=== PATIENT | male | born 1950 | race Caucasian/White ===

== ENCOUNTER → 2017-10-17 | Outpatient (CLI) | payer MEDICARE, MEDICAID, SELFPAY | PROVIDERS: Visit Provider Nurse Practitioner Family | DX: R42 Dizziness and giddiness (principal); R26.89 Other abnormalities of gait and mobility | CPT/HCPCS: 70551 ==

== ENCOUNTER → 2017-11-25 10:43 | Outpatient (POV) | payer MEDICARE, MEDICAID, SELFPAY ==
[2017-11-25 11:26] VITALS: BP 127/97; PULSE 97; TEMP 36.2; O2SAT 96; BMI 26.4
--- NOTE | 2017-11-25 11:42 | HMH.PAINSOAP ---
[facility] Pain Management SOAP Note Subjective:: This patient is a pleasant 67-year-old white male who we have been treating for low back pain with degenerative disc disease of lumbar spine multiple levels. His current Gray 10 mg 1 tablet 4 times a day. He does well with his pain medication. It reduces his pain by at least 50-60% and makes it tolerable. His Siva and urine drug screen are all appropriate. Kaspar #[id number]. He is also received injections in the past. He has done well with these injections. Most of his pain is over his left hip today. He he has increasing pain over the left trochanteric bursa and left SI joint. He does have a positive Sony's test on the left side. I do believe that he would benefit from a left SI joint injection in the left trochanteric bursa injection under fluoroscopy. Objective:: Alert and oriented ?3 in no acute distress. He does have an antalgic gait. Tenderness over the left trochanteric bursa and left SI joint. Positive Sony's test on the left side. Motor strength of the lower extremities is 5/5. There is no gross sensory deficit. Assessment:: Degenerative disc disease of lumbar spine lumbar radiculopathy symptoms. Trochanteric bursitis. Sacroiliitis. Plan:: We will seek approval and plan on a left trochanteric bursa injection and a left SI joint injection. We will also refill his Gray 10 mg 1 tablet 4 times a day. We will given 2 months worth of prescriptions.
--- NOTE | 2017-11-25 11:45 | P.CONS_ITS ---
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 His current [place] 10 mg 1 tablet 4 times a day. He does well with his pain medication. It reduces his pain by at least 50-60% and makes it tolerable. His Siva and urine drug screen are all appropriate. Kaspar #[id number]. He is also received injections in the past. He has done well with these injections. Most of his pain is over his left hip today. He he has increasing pain over the left trochanteric bursa and left SI joint. He does have a positive Sony's test on the left side. I do believe that he would benefit from a left SI joint injection in the left trochanteric bursa injection under fluoroscopy. Objective:: Alert and oriented ?3 in no acute distress. He does have an antalgic gait. Tenderness over the left trochanteric bursa and left SI joint. Positive Sony' s test on the left side. Motor strength of the lower extremities is 5/5. There is no gross sensory deficit. Assessment:: Degenerative disc disease of lumbar spine lumbar radiculopathy symptoms. Trochanteric bursitis. Sacroiliitis. Plan:: We will seek approval and plan on a left trochanteric bursa injection and a left SI joint injection. We will also refill his [place] 10 mg 1 tablet 4 times a day. We will given 2 months worth of prescriptions.
[2017-11-25 11:58] LABS: Amphetamine/Metha Screen,Urine Negative ng/mL (<1000); Barbiturates Screen,Urine Negative ng/mL (<200); Benzodiazepines Screen,Urine Negative ng/mL (200); Cannabinoid Screen,Urine Negative ng/mL (<50); Cocaine Screen,Urine Negative ng/g (<300); Methadone Screen,Urine Negative ng/mL (<300); Opiate Screen,Urine Positive ng/mL (<300); Phencyclidine Screen,Urine Negative ng/mL (<25)
[2017-12-02 15:18] LABS: Codeine Negative (Cutoff=100); Hydrocodone Positive (.); Hydromorphone Positive (.); Morphine Negative (Cutoff=100)
[2017-12-03 06:21] LABS: Opiates Positive (.)
--- NOTE | 2018-01-01 12:39 | PC.PHONENOTE ---
called in Rx for Gabapentin 800mg TID with 2 refills to [facility] pharmacy
== END ==
PROVIDERS: Family Provider Family Medicine; PCP Family Medicine; Visit Provider Anesthesiology
DX: M70.62 Trochanteric bursitis, left hip (principal); M51.16 Intervertebral disc disorders with radiculopathy, lumbar region; M46.1 Sacroiliitis, not elsewhere classified
CPT/HCPCS: 80305; 80361; 99212; G0480

== ENCOUNTER 2018-01-03 13:41 | Day surgery (SDC) | payer MEDICARE, MEDICAID, SELFPAY ==
[2018-01-03 14:14] VITALS: BP 152/62; PULSE 65; TEMP 36.6; O2SAT 97; BMI 27.3
--- NOTE | 2018-01-03 14:43 | HMH.PMPROC ---
- Procedure Date: 01/03/18 Time: 14:43 Anesthesiologist:: Alejandro Gongora MD Complications:: None Pre-procedure Diagnosis:: Sacroiliitis and trochanteric bursitis Post-procedure Diagnosis:: Same Indications for Procedure:: This patient is a pleasant 67-year-old white male who we have been treating for low back pain with lumbar radiculopathy symptoms. He is tender over his left hip. He is tender over left trochanteric bursa and left SI joint. He does have a positive Sony's test on left side. I believe he would benefit from a left SI joint injection the left trochanteric bursa injection under fluoroscopy. We will do this today. Procedure Details:: Left SI joint injection and left trochanteric bursa injection under fluoroscopy Informed consent was obtained and the risks and benefits of the procedure was going to the patient. Patient was taken to the procedure room. Patient was placed prone on the procedure table. The left hip was prepped using ChloraPrep. The skin and subcutaneous tissues were anesthetized using lidocaine. I placed a 22-gauge spinal needle into the inferior aspect of the left SI joint. Needle placement was confirmed with dye. After this we injected 5 mL bupivacaine 0.25% and Depo-Medrol 40 mg into the left SI joint. The patient tolerated the procedure well with no complication. The left hip was prepped using ChloraPrep. The skin and subcutis tissues were anesthetized using lidocaine. I placed a 22-gauge spinal needle under fluoroscopic guidance and advanced until it contacted the left greater trochanter. Needle placement was confirmed with dye. After this we injected 5 mL bupivacaine 0.25% and Depo-Medrol 40 mg. Patient tolerated the procedure well with no complications. Plan and Disposition:: We will follow-up with this patient 2 weeks. We will reevaluate his symptoms at that time.
[2018-01-03 14:50] VITALS: BP 112/62; PULSE 63; RESP 20
[2018-01-03 14:51] VITALS: BP 120/65; PULSE 65; RESP 20
[2018-01-03 15:00] VITALS: BP 98/62; PULSE 68; O2SAT 99
== END 2018-01-03 15:05 | disposition home or self-care (01) ==
LOC: SC.PAINP 13:43
PROVIDERS: Family Provider Family Medicine; PCP Family Medicine; Visit Provider Anesthesiology
DX: M46.1 Sacroiliitis, not elsewhere classified (principal); M70.62 Trochanteric bursitis, left hip
CPT/HCPCS: 20610; 27096; G0260; J1030; Q9966

== ENCOUNTER → 2018-01-20 15:22 | Outpatient (POV) | payer MEDICARE, MEDICAID, SELFPAY ==
[2018-01-20 15:32] VITALS: BP 123/90; PULSE 81; RESP 18; TEMP 36.9; O2SAT 96; BMI 25.8
--- NOTE | 2018-01-20 16:13 | HMH.PAINSOAP ---
[facility] Pain Management SOAP Note Subjective:: Patient is a pleasant 67-year-old white male who presents today for follow-up after left SI joint injection and left trochanteric bursa injection. Patient has not had much relief from his injection. Patient states he was walking his dog and felt a pop in his left hip. Patient would like an x-ray of hip today. Patient is also being medically managed for low back pain and neck pain. Patient currently on [place] 10 mg 1 p.o. 4 times daily and gabapentin 800 mg 1 p.o. 3 times daily. Patient's MARIA DE JESUS #[id number] reviewed and appropriate. Patient UDS has been appropriate in the past. Patient states that his gabapentin is not as effective as it used to be. Patient states he used to take Lyrica with much better relief. Patient denies any side effects to the medication. Patient rates his pain a 6 out of 10 today. Patient states most of it being in his left hip and radiating down to his leg at times. ROS General: no recent weight change, no fever, no sleep disturbances Respiratory: no cough, no shortness of air, no recurring pulmonary infections Cardiovascular/Peripheral Vascular: No chest pain, No palpitations, no edema, no shortness of breath. Gastrointestinal: no incontinence, normal bowel movements reported Genitourinary: no incontinence Musculoskeletal: Neck pain, back pain, left hip and leg pain Psychiatric: normal mood/ affect, [denies depression], [denies anxiety] Neurological: [denies weakness in extremities], [denies balance issues] Objective:: Physical Exam General: Alert and oriented x3, no acute distress, pleasant and cooperative, [on room air] Lungs: Resps E/U, Symmetrical chest expansion, Eyes: PERRL Musculoskeletal: Flexion and extension of lumbar and cervical spine somewhat guarded secondary to pain, deep tendon reflexes normal, strength in upper and lower extremities [5/5], [abnormal gait noted] Neurological: speech clear, brass reclaimer equal, no gross sensory deficits Assessment:: Degenerative disc disease of the cervical spine, cervical radiculopathy, occipital neuralgia, degenerative disc disease of the lumbar spine with lumbar radiculopathy, left sacroiliitis Plan:: We will refill his medications today [place] 10 mg 1 p.o. 4 times daily. We will give him 2 prescriptions. We will also change him to Lyrica 75 mg 1 tab p.o. twice daily for a month and see if this will helps with his symptoms. Patient's Maria De Jesus and urine drug screen both reviewed and appropriate. Dr. Gongora has reviewed his chart and agrees with this plan of care. I will follow-up with him in 1 month and reassess how he is doing with his Lyrica change. Patient is to call the office if he has any side effects. Patient has been prescribed a controlled substance after being counseled on the medication, medication safety, and possible side effects. MARIA DE JESUS report has been obtained and reviewed prior to prescription and found to be appropriate. Opioid contract was reviewed and signed by the patient, and that they have agreed to all of the terms set forth by our compliance program. This note was dictated using voice recognition software may contain errors or omissions
--- NOTE | 2018-01-20 16:17 | P.CONS_ITS ---
[facility] Pain Management SOAP Note Subjective:: Patient is a pleasant 67-year-old white male who presents today for follow-up after left SI joint injection and left trochanteric bursa injection. Patient has not had much relief from his injection. Patient states he was walking his dog and felt a pop in his left hip. Patient would like an x-ray of hip today. Patient is also being medically managed for low back pain and neck pain. Patient currently on [place] 10 mg 1 p.o. 4 times daily and gabapentin 800 mg 1 p.o. 3 times daily. Patient's MARIA DE JESUS #[id number] reviewed and appropriate. Patient UDS has been appropriate in the past. Patient states that his gabapentin is not as effective as it used to be. Patient states he used to take Lyrica with much better relief. Patient denies any side effects to the medication. Patient rates his pain a 6 out of 10 today. Patient states most of it being in his left hip and radiating down to his leg at times. ROS General: no recent weight change, no fever, no sleep disturbances Respiratory: no cough, no shortness of air, no recurring pulmonary infections Cardiovascular/Peripheral Vascular: No chest pain, No palpitations, no edema, no shortness of breath. Gastrointestinal: no incontinence, normal bowel movements reported Genitourinary: no incontinence Musculoskeletal: Neck pain, back pain, left hip and leg pain Psychiatric: normal mood/ affect, [denies depression], [denies anxiety] Neurological: [denies weakness in extremities], [denies balance issues] Objective:: Physical Exam General: Alert and oriented x3, no acute distress, pleasant and cooperative, [ on room air] Lungs: Resps E/U, Symmetrical chest expansion, Eyes: PERRL Musculoskeletal: Flexion and extension of lumbar and cervical spine somewhat guarded secondary to pain, deep tendon reflexes normal, strength in upper and lower extremities [5/5], [abnormal gait noted] Neurological: speech clear, director diabetes equal, no gross sensory deficits Assessment:: Degenerative disc disease of the cervical spine, cervical radiculopathy, occipital neuralgia, degenerative disc disease of the lumbar spine with lumbar radiculopathy, left sacroiliitis Plan:: We will refill his medications today [place] 10 mg 1 p.o. 4 times daily. We will give him 2 prescriptions. We will also change him to Lyrica 75 mg 1 tab p.o. twice daily for a month and see if this will helps with his symptoms. Patient' s Maria De Jesus and urine drug screen both reviewed and appropriate. Dr. Gongora has reviewed his chart and agrees with this plan of care. I will follow-up with him in 1 month and reassess how he is doing with his Lyrica change. Patient is to call the office if he has any side effects. Patient has been prescribed a controlled substance after being counseled on the medication, medication safety, and possible side effects. MARIA DE JESUS report has been obtained and reviewed prior to prescription and found to be appropriate. Opioid contract was reviewed and signed by the patient, and that they have agreed to all of the terms set forth by our compliance program. This note was dictated using voice recognition software may contain errors or omissions
--- NOTE | 2018-01-21 15:05 | PC.PHONENOTE ---
called in Rx for Lyrica 75mg BID and cancelled Rx for Gabapentin per provider order
== END ==
PROVIDERS: Family Provider Family Medicine; PCP Family Medicine; Visit Provider Clinical Nurse Specialist Family Health
DX: M54.12 Radiculopathy, cervical region (principal); M54.16 Radiculopathy, lumbar region; M54.81 Occipital neuralgia
CPT/HCPCS: 99212

== ENCOUNTER → 2018-01-21 14:01 | Outpatient (CLI) | payer MEDICARE, MEDICAID, SELFPAY ==
--- NOTE | 2018-01-21 14:07 | XR_ITS ---
XR hip LT 2-3V w/pelvis HISTORY: ITS.REASON: LEFT HIP PAIN ORDERING PHYSICIAN: Sherry Saenz PATIENT AGE: 67 years COMPARISON: 05/07/2011 FINDINGS: Left femoral decompression screw along with an additional smaller screw present as before the proximal bony sideplate connecting to the gamma nail. Not significant change. A transverse long screw is present through the mid pelvis through the sacrum. There are mild osteoarthritic changes of the hips. No fracture or dislocation. No lytic or blastic change. IMPRESSION: Osteoarthritis of the hips with postsurgical change
== END ==
PROVIDERS: PCP Family Medicine; Visit Provider Clinical Nurse Specialist Family Health
DX: M25.552 Pain in left hip (principal)
CPT/HCPCS: 73502

== ENCOUNTER → 2018-02-17 13:05 | Outpatient (POV) | payer MEDICARE, MEDICAID, SELFPAY ==
[2018-02-17 13:51] VITALS: BP 185/93; PULSE 55; RESP 18; TEMP 36.6; BMI 25.8
--- NOTE | 2018-02-17 13:59 | HMH.PAINSOAP ---
[facility] Pain Management SOAP Note Subjective:: Patient is a pleasant 67-year-old white male who presents today follow-up after medication changes. Patient states that he is unable to take the Lyrica due to side effects including stomach upset and kidney problems, and swelling. Patient like to go back on his gabapentin 800 grams 1 p.o. 3 times daily. Patient x-ray of hip showed osteoarthritis. Patient is uninterested in an injection at this time. Patient is doing urine drug screen today. Patient will do that before receiving medication. Patient is also being managed on [place] 10 mg 1 p.o. 4 times a day. Patient states he does very well with this. Patient states he has no side effects. His pain a 5 out of 10 today. ROS General: no recent weight change, no fever, no sleep disturbances Respiratory: no cough, no shortness of air, no recurring pulmonary infections Cardiovascular/Peripheral Vascular: No chest pain, No palpitations, no edema, no shortness of breath. Gastrointestinal: no incontinence, normal bowel movements reported Genitourinary: no incontinence Musculoskeletal: Back pain, left hip pain Psychiatric: normal mood/ affect, [denies depression], [denies anxiety] Neurological: [denies weakness in extremities], [denies balance issues] Objective:: Physical Exam General: Alert and oriented x3, no acute distress, pleasant and cooperative, [on room air] Lungs: Resps E/U, Symmetrical chest expansion, Eyes: PERRL Musculoskeletal: Flexion and extension of lumbar spine somewhat guarded secondary to pain, deep tendon reflexes normal, strength in upper and lower extremities [5/5], [abnormal gait noted] Neurological: speech clear, diesel engineer equal, no gross sensory deficits Assessment:: Degenerative disc disease of the lumbar spine, lumbar radiculopathy, left sacroiliitis, occipital neuralgia, cervical degenerative disc disease with cervical radiculopathy Plan:: We will follow-up with this patient in 3 months we will give him 1 prescription [place] 10 mg 1 p.o. 4 times daily. Patient can call in for his next refill. Patient's Maria De Jesus reviewed and appropriate. Patient will provide urine drug screen sample today. Dr. Gongora has reviewed this chart and agrees with this plan of care. Patient has been instructed to call the office if he needs any further assistance prior to his appointment. - Patient has been prescribed a controlled substance after being counseled on the medication, medication safety, and possible side effects. MARIA DE JESUS report has been obtained and reviewed prior to prescription and found to be appropriate. Opioid contract was reviewed and signed by the patient, and that they have agreed to all of the terms set forth by our compliance program. This note was dictated using voice recognition software and may contain errors or omissions
--- NOTE | 2018-02-17 14:03 | P.CONS_ITS ---
[facility] Pain Management SOAP Note Subjective:: Patient is a pleasant 67-year-old white male who presents today follow-up after medication changes. Patient states that he is unable to take the Lyrica due to side effects including stomach upset and kidney problems, and swelling. Patient like to go back on his gabapentin 800 grams 1 p.o. 3 times daily. Patient x-ray of hip showed osteoarthritis. Patient is uninterested in an injection at this time. Patient is doing urine drug screen today. Patient will do that before receiving medication. Patient is also being managed on [place] 10 mg 1 p.o. 4 times a day. Patient states he does very well with this. Patient states he has no side effects. His pain a 5 out of 10 today. ROS General: no recent weight change, no fever, no sleep disturbances Respiratory: no cough, no shortness of air, no recurring pulmonary infections Cardiovascular/Peripheral Vascular: No chest pain, No palpitations, no edema, no shortness of breath. Gastrointestinal: no incontinence, normal bowel movements reported Genitourinary: no incontinence Musculoskeletal: Back pain, left hip pain Psychiatric: normal mood/ affect, [denies depression], [denies anxiety] Neurological: [denies weakness in extremities], [denies balance issues] Objective:: Physical Exam General: Alert and oriented x3, no acute distress, pleasant and cooperative, [ on room air] Lungs: Resps E/U, Symmetrical chest expansion, Eyes: PERRL Musculoskeletal: Flexion and extension of lumbar spine somewhat guarded secondary to pain, deep tendon reflexes normal, strength in upper and lower extremities [5/5], [abnormal gait noted] Neurological: speech clear, medical cost consultant equal, no gross sensory deficits Assessment:: Degenerative disc disease of the lumbar spine, lumbar radiculopathy, left sacroiliitis, occipital neuralgia, cervical degenerative disc disease with cervical radiculopathy Plan:: We will follow-up with this patient in 3 months we will give him 1 prescription [place] 10 mg 1 p.o. 4 times daily. Patient can call in for his next refill. Patient's Maria De Jesus reviewed and appropriate. Patient will provide urine drug screen sample today. Dr. Gongora has reviewed this chart and agrees with this plan of care. Patient has been instructed to call the office if he needs any further assistance prior to his appointment. - Patient has been prescribed a controlled substance after being counseled on the medication, medication safety, and possible side effects. MARIA DE JESUS report has been obtained and reviewed prior to prescription and found to be appropriate. Opioid contract was reviewed and signed by the patient, and that they have agreed to all of the terms set forth by our compliance program. This note was dictated using voice recognition software and may contain errors or omissions
[2018-02-17 15:20] LABS: Amphetamine/Metha Screen,Urine Negative ng/mL (<1000); Barbiturates Screen,Urine Negative ng/mL (<200); Benzodiazepines Screen,Urine Negative ng/mL (200); Cannabinoid Screen,Urine Negative ng/mL (<50); Cocaine Screen,Urine Negative ng/g (<300); Methadone Screen,Urine Negative ng/mL (<300); Opiate Screen,Urine Positive ng/mL (<300); Phencyclidine Screen,Urine Negative ng/mL (<25)
--- NOTE | 2018-02-18 14:29 | PC.PHONENOTE ---
02/17/18-called in rx for Gabapentin 800mg TID with 2 refills to pt pharmacy per provider order
[2018-02-26 17:13] LABS: Codeine Negative (Cutoff=100); Hydrocodone Positive (.); Hydromorphone Positive (.); Morphine Negative (Cutoff=100)
[2018-02-27 14:45] LABS: Opiates Positive (.)
== END ==
PROVIDERS: Family Provider Family Medicine; PCP Family Medicine; Visit Provider Clinical Nurse Specialist Family Health
DX: M54.16 Radiculopathy, lumbar region (principal); M54.12 Radiculopathy, cervical region; M54.81 Occipital neuralgia; Z79.899 Other long term (current) drug therapy
CPT/HCPCS: 80305; 80361; 80365; 99212; G0480

== ENCOUNTER → 2018-04-21 12:52 | Outpatient (POV) | payer MEDICARE, MEDICAID, SELFPAY ==
[2018-04-21 13:03] VITALS: BP 134/65; PULSE 74; RESP 18; TEMP 37; O2SAT 95; BMI 25.5
--- NOTE | 2018-04-21 13:30 | HMH.PAINSOAP ---
[facility] Pain Management SOAP Note Subjective:: Patient is a pleasant 68-year-old white male who presents today for medication changes. Patient is currently being medically managed for pain secondary to degenerative disc disease of the lumbar spine with lumbar radiculopathy and cervical degenerative disc disease with cervical radiculopathy. Patient also has sacroiliitis and occipital neuralgia. Patient's currently being medically managed on gabapentin 800 mg 1 tab p.o. 3 times daily and [place] 10 mg 1 tab p.o. 4 times daily. Patient denies any side effects to his medication. He states the medication helps him 60%. Patient Kaspar #[id number] reviewed and appropriate. Patient's UDS has been appropriate in the past. Patient has had injections in the past however he states he is doing well right now on his medication. Patient has had carpal tunnel surgery on his left hand and is having the same symptomology return. Patient would like to see an orthopedic surgeon in regards to this. He rates his pain a 5 out of 10 today. ROS General: no recent weight change, no fever, no sleep disturbances Respiratory: no cough, no shortness of air, no recurring pulmonary infections Cardiovascular/Peripheral Vascular: No chest pain, No palpitations, no edema, no shortness of breath. Gastrointestinal: no incontinence, normal bowel movements reported Genitourinary: no incontinence Musculoskeletal: Left hand pain, back pain, left hip pain Psychiatric: normal mood/ affect Neurological: [denies weakness in extremities], [denies balance issues] Objective:: Physical Exam General: Alert and oriented x3, no acute distress, pleasant and cooperative, [on room air] Lungs: Resps E/U, Symmetrical chest expansion, Eyes: PERRL Musculoskeletal: Flexion and extension of cervical and lumbar spine somewhat guarded secondary to pain, deep tendon reflexes normal, strength in upper and lower extremities [5/5], normal gait noted Neurological: speech clear, damaged freight inspector equal, no gross sensory deficits Assessment:: Degenerative disc disease of lumbar spine, lumbar radiculopathy, left sacroiliitis, neuralgia, cervical degenerative disc disease and cervical radiculopathy Plan:: We will follow-up with this patient in 3 months. We will give him 2 prescriptions for [place] 10 mg 1 p.o. 4 times daily we will also increase his gabapentin to 800 mg 1 p.o. 4 times daily. We will see the patient back in 3 months and he can last picker 1 month in the interim. Patient's MARIA DE JESUS reviewed and urine drug screen in the past is been appropriate. Dr. Gongora has reviewed this chart and agrees with this care. Patient will also be set up with Dr. Otero in regards to his left wrist pain. Patient has been instructed to call the office if he needs any further assistance prior to his next appointment. Patient has been prescribed a controlled substance after being counseled on the medication, medication safety, and possible side effects. MARIA DE JESUS report has been obtained and reviewed prior to prescription and found to be appropriate. Opioid contract was reviewed and signed by the patient, and that they have agreed to all of the terms set forth by our compliance program. This note was dictated using voice recognition software and may contain errors or omissions
--- NOTE | 2018-04-21 13:35 | P.CONS_ITS ---
[facility] Pain Management SOAP Note Subjective:: Patient is a pleasant 68-year-old white male who presents today for medication changes. Patient is currently being medically managed for pain secondary to degenerative disc disease of the lumbar spine with lumbar radiculopathy and cervical degenerative disc disease with cervical radiculopathy. Patient also has sacroiliitis and occipital neuralgia. Patient's currently being medically managed on gabapentin 800 mg 1 tab p.o. 3 times daily and [place] 10 mg 1 tab p.o. 4 times daily. Patient denies any side effects to his medication. He states the medication helps him 60%. Patient Kaspar #[id number] reviewed and appropriate. Patient's UDS has been appropriate in the past. Patient has had injections in the past however he states he is doing well right now on his medication. Patient has had carpal tunnel surgery on his left hand and is having the same symptomology return. Patient would like to see an orthopedic surgeon in regards to this. He rates his pain a 5 out of 10 today. ROS General: no recent weight change, no fever, no sleep disturbances Respiratory: no cough, no shortness of air, no recurring pulmonary infections Cardiovascular/Peripheral Vascular: No chest pain, No palpitations, no edema, no shortness of breath. Gastrointestinal: no incontinence, normal bowel movements reported Genitourinary: no incontinence Musculoskeletal: Left hand pain, back pain, left hip pain Psychiatric: normal mood/ affect Neurological: [denies weakness in extremities], [denies balance issues] Objective:: Physical Exam General: Alert and oriented x3, no acute distress, pleasant and cooperative, [ on room air] Lungs: Resps E/U, Symmetrical chest expansion, Eyes: PERRL Musculoskeletal: Flexion and extension of cervical and lumbar spine somewhat guarded secondary to pain, deep tendon reflexes normal, strength in upper and lower extremities [5/5], normal gait noted Neurological: speech clear, accounts receivable accountant equal, no gross sensory deficits Assessment:: Degenerative disc disease of lumbar spine, lumbar radiculopathy, left sacroiliitis, neuralgia, cervical degenerative disc disease and cervical radiculopathy Plan:: We will follow-up with this patient in 3 months. We will give him 2 prescriptions for [place] 10 mg 1 p.o. 4 times daily we will also increase his gabapentin to 800 mg 1 p.o. 4 times daily. We will see the patient back in 3 months and he can pharmacy picking tech 1 month in the interim. Patient's MARIA DE JESUS reviewed and urine drug screen in the past is been appropriate. Dr. Gongora has reviewed this chart and agrees with this care. Patient will also be set up with Dr. Otero in regards to his left wrist pain. Patient has been instructed to call the office if he needs any further assistance prior to his next appointment. Patient has been prescribed a controlled substance after being counseled on the medication, medication safety, and possible side effects. MARIA DE JESUS report has been obtained and reviewed prior to prescription and found to be appropriate. Opioid contract was reviewed and signed by the patient, and that they have agreed to all of the terms set forth by our compliance program. This note was dictated using voice recognition software and may contain errors or omissions
== END ==
PROVIDERS: Family Provider Family Medicine; PCP Family Medicine; Visit Provider Clinical Nurse Specialist Family Health
DX: M54.12 Radiculopathy, cervical region (principal); M46.1 Sacroiliitis, not elsewhere classified; M54.16 Radiculopathy, lumbar region
CPT/HCPCS: 99212

== ENCOUNTER → 2018-05-08 10:54 | Outpatient (CLI) | payer MEDICARE, MEDICAID, SELFPAY ==
--- NOTE | 2018-05-08 10:59 | XR_ITS ---
XR elbow LT min 3V HISTORY: ITS.REASON: Left elbow pain ORDERING PHYSICIAN: George Starkey MD PATIENT AGE: 68 years COMPARISON: None FINDINGS: No fracture or dislocation. No lytic or blastic change. Mild spurring is present along the medial aspect of the coronoid process. No displaced fat pad. The joint spaces are well-preserved IMPRESSION: Minimal spurring along the coronoid process medially otherwise negative
== END ==
PROVIDERS: PCP Family Medicine; Visit Provider Orthopaedic Surgery
DX: M25.522 Pain in left elbow (principal)
CPT/HCPCS: 73080

== ENCOUNTER → 2018-07-21 10:39 | Outpatient (POV) | payer MEDICARE, MEDICAID, SELFPAY ==
[2018-07-21 11:07] VITALS: BP 111/75; PULSE 67; RESP 18; O2SAT 98; BMI 25.5
--- NOTE | 2018-07-21 11:33 | HMH.PAINSOAP ---
[facility] Pain Management SOAP Note Subjective:: This pleasant 68-year-old white male who presents today for medication refills. Patient is currently being medically managed for pain secondary to degenerative disc disease lumbar spine with lumbar radiculopathy and cervical degenerative disc disease with cervical radiculopathy. Patient is currently on an 800 mg 1 tab p.o. 4 times daily and [place] 10 minutes 1 tab p.o. 4 times daily. Patient denies any side effects to this medication. Patient rates his pain 5 out of 10 today patient states most of his trouble is when he is sleeping. Patient's MARIA DE JESUS #[id number] reviewed and appropriate. Patient's UDS has been appropriate in the past. ROS General: no recent weight change, no fever, difficulty sleeping Respiratory: no cough, no shortness of air, no recurring pulmonary infections Cardiovascular/Peripheral Vascular: No chest pain, No palpitations, no edema, no shortness of breath. Gastrointestinal: no incontinence, normal bowel movements reported Genitourinary: no incontinence Musculoskeletal: Neck and back pain Psychiatric: normal mood/ affect, Neurological: [denies weakness in extremities], [denies balance issues] Objective:: Physical Exam General: Alert and oriented x3, no acute distress, pleasant and cooperative, [on room air] Lungs: Resps E/U, Symmetrical chest expansion, Eyes: PERRL Musculoskeletal: Flexion and extension of cervical and lumbar spine somewhat guarded secondary to pain, deep tendon reflexes normal, strength in upper and lower extremities [5/5], antalgic gait noted Neurological: speech clear, paperhanger supervisor equal, no gross sensory deficits Assessment:: Degenerative disc disease lumbar spine with lumbar radiculopathy and left sacroiliitis, and cervical degenerative disc disease with cervical radiculopathy Plan:: We will refill the patient's [place] 10 mg 1 p.o. 4 times daily and gabapentin 800 mg 1 p.o. 4 times daily we will start him on amitriptyline 25 mg at nighttime to see if this helps him with his sleeping. I will follow-up with him in 1 week. Patient's MARIA DE JESUS reviewed. Dr. Gongora is reviewed this chart and agrees with this plan of care. Patient has been prescribed a controlled substance after being counseled on the medication, medication safety, and possible side effects. MARIA DE JESUS report has been obtained and reviewed prior to prescription and found to be appropriate. Opioid contract was reviewed and signed by the patient, and that they have agreed to all of the terms set forth by our compliance program. This note was dictated using voice recognition software and may contain errors or omissions
--- NOTE | 2018-07-21 11:36 | P.CONS_ITS ---
[facility] Pain Management SOAP Note Subjective:: This pleasant 68-year-old white male who presents today for medication refills. Patient is currently being medically managed for pain secondary to degenerative disc disease lumbar spine with lumbar radiculopathy and cervical degenerative disc disease with cervical radiculopathy. Patient is currently on an 800 mg 1 tab p.o. 4 times daily and [place] 10 minutes 1 tab p.o. 4 times daily. Patient denies any side effects to this medication. Patient rates his pain 5 out of 10 today patient states most of his trouble is when he is sleeping. Patient's MARIA DE JESUS #[id number] reviewed and appropriate. Patient's UDS has been appropriate in the past. ROS General: no recent weight change, no fever, difficulty sleeping Respiratory: no cough, no shortness of air, no recurring pulmonary infections Cardiovascular/Peripheral Vascular: No chest pain, No palpitations, no edema, no shortness of breath. Gastrointestinal: no incontinence, normal bowel movements reported Genitourinary: no incontinence Musculoskeletal: Neck and back pain Psychiatric: normal mood/ affect, Neurological: [denies weakness in extremities], [denies balance issues] Objective:: Physical Exam General: Alert and oriented x3, no acute distress, pleasant and cooperative, [on room air] Lungs: Resps E/U, Symmetrical chest expansion, Eyes: PERRL Musculoskeletal: Flexion and extension of cervical and lumbar spine somewhat guarded secondary to pain, deep tendon reflexes normal, strength in upper and lower extremities [5/5], antalgic gait noted Neurological: speech clear, i&c tech equal, no gross sensory deficits Assessment:: Degenerative disc disease lumbar spine with lumbar radiculopathy and left sacroiliitis, and cervical degenerative disc disease with cervical radiculopathy Plan:: We will refill the patient's [place] 10 mg 1 p.o. 4 times daily and gabapentin 800 mg 1 p.o. 4 times daily we will start him on amitriptyline 25 mg at nighttime to see if this helps him with his sleeping. I will follow-up with him in 1 week. Patient's MARIA DE JESUS reviewed. Dr. Gongora is reviewed this chart and agrees with this plan of care. Patient has been prescribed a controlled substance after being counseled on the medication, medication safety, and possible side effects. MARIA DE JESUS report has been obtained and reviewed prior to prescription and found to be appropriate. Opioid contract was reviewed and signed by the patient, and that they have agreed to all of the terms set forth by our compliance program. This note was dictated using voice recognition software and may contain errors or omissions
[2018-07-21 13:46] LABS: Amphetamine/Metha Screen,Urine Negative ng/mL (<1000); Barbiturates Screen,Urine Negative ng/mL (<200); Benzodiazepines Screen,Urine Negative ng/mL (<200); Cannabinoid Screen,Urine Negative ng/mL (<50); Cocaine Screen,Urine Negative ng/mL (<300); Methadone Screen,Urine Negative ng/mL (<300); Opiate Screen,Urine Positive ng/mL (<300); Phencyclidine Screen,Urine Negative ng/mL (<25)
[2018-07-27 12:10] LABS: Codeine Negative (Cutoff=100); Hydrocodone Positive (.); Hydromorphone Positive (.); Morphine Negative (Cutoff=100)
[2018-07-28 03:31] LABS: Opiates Positive (.)
== END ==
PROVIDERS: Family Provider Family Medicine; PCP Family Medicine; Visit Provider Clinical Nurse Specialist Family Health
DX: M51.16 Intervertebral disc disorders with radiculopathy, lumbar region (principal); Z79.899 Other long term (current) drug therapy; Z76.0 Encounter for issue of repeat prescription; M50.10 Cervical disc disorder with radiculopathy, unspecified cervical region
CPT/HCPCS: 80305; 80361; 80365; 99213; G0480

== ENCOUNTER → 2018-08-18 14:15 | Outpatient (POV) | payer MEDICARE, MEDICAID, SELFPAY ==
[2018-08-18 14:30] VITALS: BP 130/79; PULSE 60; RESP 18; O2SAT 98; BMI 33.9
--- NOTE | 2018-08-18 15:04 | HMH.PAINSOAP ---
[facility] Pain Management SOAP Note Subjective:: Patient I did not is a pleasant 68-year-old white male who presents today for medication refills. Patient is currently being medically managed for pain secondary to degenerative disc disease of her spine with lumbar radiculopathy and cervical degenerative disc disease with cervical radiculopathy. Patient is currently on pen 800 mg 1 tab p.o. 3 times daily along with [place] 10 mg 1 tab p.o. 4 times daily. Patient also was started on Elavil 25 mg nightly and is doing extremely well. Patient's Siva and urine drug screen reviewed and appropriate. Patient only needs refills of his Elavil today. ROS General: no recent weight change, no fever, no sleep disturbances Respiratory: no cough, no shortness of air, no recurring pulmonary infections Cardiovascular/Peripheral Vascular: No chest pain, No palpitations, no edema, no shortness of breath. Gastrointestinal: no incontinence, normal bowel movements reported Genitourinary: no incontinence Musculoskeletal: Neck pain, back pain Psychiatric: normal mood/ affect Neurological: [denies weakness in extremities], [denies balance issues] Objective:: Physical Exam General: Alert and oriented x3, no acute distress, pleasant and cooperative, [on room air] Lungs: Resps E/U, Symmetrical chest expansion, Eyes: PERRL Musculoskeletal: Flexion and extension of cervical and lumbar spine somewhat guarded secondary to pain, deep tendon reflexes normal, strength in upper and lower extremities [5/5], slightly antalgic gait noted Neurological: speech clear, painter touch up equal, no gross sensory deficits Assessment:: Degenerative disc disease lumbar spine with lumbar radiculopathy and cervical degenerative disc disease with cervical radiculopathy Plan:: We will refill his Elavil 25 mg at nighttime. Patient is not in need of any refills at this time. We will follow-up with him in 3 months. Patient can call in for his refills when it is time. This note was dictated using voice recognition software and may contain errors or omissions
--- NOTE | 2018-11-13 14:43 | PC.NURSE ---
GABAPENTIN 800MG TID CALLED INTO [facility] WITH 2 REFILLS PER PROVIDER ORDER.
== END ==
PROVIDERS: Family Provider Family Medicine; PCP Family Medicine; Visit Provider Clinical Nurse Specialist Family Health
DX: M51.16 Intervertebral disc disorders with radiculopathy, lumbar region (principal); M50.10 Cervical disc disorder with radiculopathy, unspecified cervical region
CPT/HCPCS: 99213

== ENCOUNTER → 2018-10-23 13:27 | Outpatient (CLI) | payer MEDICARE, MEDICAID, SELFPAY ==
[2018-10-23 14:51] LABS: Amphetamine/Metha Screen,Urine Negative ng/mL (<1000); Barbiturates Screen,Urine Negative ng/mL (<200); Benzodiazepines Screen,Urine Negative ng/mL (<200); Cannabinoid Screen,Urine Negative ng/mL (<50); Cocaine Screen,Urine Negative ng/mL (<300); Methadone Screen,Urine Negative ng/mL (<300); Opiate Screen,Urine Positive ng/mL (<300); Phencyclidine Screen,Urine Negative ng/mL (<25)
[2018-10-29 13:13] LABS: Codeine Negative (Cutoff=100); Hydrocodone Positive (.); Hydromorphone Positive (.); Morphine Negative (Cutoff=100)
[2018-10-29 16:18] LABS: Opiates Positive (.)
== END ==
PROVIDERS: Visit Provider Clinical Nurse Specialist Family Health
DX: Z79.899 Other long term (current) drug therapy (principal)
CPT/HCPCS: 80305; 80361; 80365; G0480

== ENCOUNTER → 2018-11-17 13:53 | Outpatient (POV) | payer MEDICARE, MEDICAID, SELFPAY ==
[2018-11-17 14:08] VITALS: BP 124/85; PULSE 94; RESP 18; O2SAT 99; BMI 25.9
--- NOTE | 2018-11-17 14:26 | HMH.PAINSOAP ---
[facility] Pain Management SOAP Note Subjective:: Patient is a pleasant 68-year-old white male who presents today for medication refills. He is currently being medically managed for pain secondary to degenerative disc disease of the lumbar spine with lumbar radiculopathy and cervical degenerative disc disease with cervical radiculopathy. Patient is currently on gabapentin 800 mg 1 tab p.o. 3 times daily and along with [place] 10 mg 1 tab p.o. 4 times daily and Elavil 25 mg at night. He is doing extremely well rating his pain a 2 out of 10. Maria De Jesus and urine drug screens have been appropriate. He presents today for refills. Patient is awaiting rooster comb injections in his bilateral shoulders. ROS General: no recent weight change, no fever, no sleep disturbances Respiratory: no cough, no shortness of air, no recurring pulmonary infections Cardiovascular/Peripheral Vascular: No chest pain, No palpitations, no edema, no shortness of breath. Gastrointestinal: no incontinence, normal bowel movements reported Genitourinary: no incontinence Musculoskeletal: Neck pain, back pain Psychiatric: normal mood/ affect Neurological: [denies weakness in extremities], [denies balance issues] Objective:: Physical Exam General: Alert and oriented x3, no acute distress, pleasant and cooperative, [on room air] Lungs: Resps E/U, Symmetrical chest expansion, Eyes: PERRL Musculoskeletal: Flexion and extension of cervical and lumbar spine somewhat guarded secondary to pain, deep tendon reflexes normal, strength in upper and lower extremities [5/5], slightly antalgic gait noted Neurological: speech clear, supervisor agency appointments equal, no gross sensory deficits Assessment:: Degenerative disc disease lumbar spine with lumbar radiculopathy and cervical degenerative disc disease with cervical radiculopathy Plan:: We will refill his [place] 10 mg 1 p.o. 4 times daily and gabapentin 800 mg 1 p.o. 3 times daily and Elavil 25 mg 1 p.o. nightly. Within 2 months worth of medication and see him back in 3 months but can pick pulling machine tender the medication in the interim. Patient has been prescribed a controlled substance after being counseled on the medication, medication safety, and possible side effects. MARIA DE JESUS report has been obtained and reviewed prior to prescription and found to be appropriate. Opioid contract was reviewed and signed by the patient, and that they have agreed to all of the terms set forth by our compliance program. Dr. Gongora has reviewed this note and agrees with this plan of care. This note was dictated using voice recognition software and may contain errors or omissions
== END ==
PROVIDERS: PCP Family Medicine; Visit Provider Clinical Nurse Specialist Family Health
DX: M51.16 Intervertebral disc disorders with radiculopathy, lumbar region (principal); M50.30 Other cervical disc degeneration, unspecified cervical region
CPT/HCPCS: 99213

== ENCOUNTER → 2019-02-09 13:48 | Outpatient (POV) | payer MEDICARE, MEDICAID, SELFPAY ==
[2019-02-09 14:27] VITALS: BP 155/98; PULSE 50; RESP 18; O2SAT 98; BMI 25.8
[2019-02-09 15:36] LABS: Amphetamine/Metha Screen,Urine Negative ng/mL (<1000); Barbiturates Screen,Urine Negative ng/mL (<200); Benzodiazepines Screen,Urine Negative ng/mL (<200); Cannabinoid Screen,Urine Negative ng/mL (<50); Cocaine Screen,Urine Negative ng/mL (<300); Methadone Screen,Urine Negative ng/mL (<300); Opiate Screen,Urine Positive ng/mL (<300); Phencyclidine Screen,Urine Negative ng/mL (<25)
--- NOTE | 2019-02-10 08:49 | P.CONS_ITS ---
[facility] Pain Management SOAP Note Subjective:: Patient is a pleasant 68-year-old white male who presents today for medication refills. He is currently being medically managed for pain secondary to degenerative disc disease lumbar spine with lumbar radiculopathy and cervical degenerative disc disease with cervical radiculopathy. He is currently on gabapentin 800 mg 1 p.o. 3 times daily along with [place] 10 mg 1 tab p.o. 4 times daily and Elavil 25 mg 1 tab p.o. nightly. He rates his pain a 5 out of 10. Maria De Jesus and urine drug screens have been appropriate. ROS General: no recent weight change, no fever, no sleep disturbances Respiratory: no cough, no shortness of air, no recurring pulmonary infections Cardiovascular/Peripheral Vascular: No chest pain, No palpitations, no edema, no shortness of breath. Gastrointestinal: no incontinence, normal bowel movements reported Genitourinary: no incontinence Musculoskeletal: Back pain, neck pain Psychiatric: normal mood/ affect Neurological: [denies weakness in extremities], [denies balance issues] Objective:: Physical Exam General: Alert and oriented x3, no acute distress, pleasant and cooperative, [on room air] Lungs: Resps E/U, Symmetrical chest expansion, Eyes: PERRL Musculoskeletal: Flexion and extension of cervical and lumbar spine somewhat guarded secondary to pain, deep tendon reflexes normal, strength in upper and lower extremities [5/5], [abnormal gait noted] Neurological: speech clear, director case management equal, no gross sensory deficits Assessment:: Degenerative disc disease lumbar spine with lumbar radiculopathy and cervical degenerative disc disease with cervical radiculopathy Plan:: We will refill the patient's [place] 10 mg 1 p.o. 4 times daily and gabapentin 800 mg 1 p.o. 3 times daily and Elavil 25 mg 1 p.o. nightly. We will give him 2 months worth of medication see him back in 3 months he can mushroom picker his medication in the interim. Patient has been prescribed a controlled substance after being counseled on the medication, medication safety, and possible side effects. MARIA DE JESUS report has been obtained and reviewed prior to prescription and found to be appropriate. Opioid contract was reviewed and signed by the patient, and that they have agreed to all of the terms set forth by our compliance program. Dr. Gongora has reviewed this note and agrees with this plan of care. This note was dictated using voice recognition software and may contain errors or omissions
[2019-02-14 17:13] LABS: Codeine Negative (Cutoff=100); Hydrocodone Positive (.); Hydromorphone Positive (.); Morphine Negative (Cutoff=100)
[2019-02-14 19:04] LABS: Opiates Positive (.)
== END ==
PROVIDERS: PCP Family Medicine; Visit Provider Clinical Nurse Specialist Family Health
DX: Z79.899 Other long term (current) drug therapy (principal); M51.16 Intervertebral disc disorders with radiculopathy, lumbar region; M50.10 Cervical disc disorder with radiculopathy, unspecified cervical region
CPT/HCPCS: 80305; 80361; 80365; 99212; G0480

== ENCOUNTER → 2019-05-04 09:03 | Outpatient (POV) | payer MEDICARE, MEDICAID, SELFPAY ==
[2019-05-04 09:13] VITALS: BP 146/82; PULSE 89; RESP 18; O2SAT 98; BMI 25.8
--- NOTE | 2019-05-04 09:18 | HMH.PAINSOAP ---
[facility] Pain Management SOAP Note Subjective:: Patient is a pleasant 69-year-old white male who presents today for follow-up. Patient had a fall recently and was seen in the ER and given steroids. He still having some residual pain however he states it is much better. We discussed adding an anti-inflammatory after he finishes his round of steroids until he is feeling better. Patient is currently managed with [place] 10 mg 1 tab p.o. 4 times daily along with gabapentin 800 mg 1 p.o. 3 times daily and Elavil 25 mg at nighttime. Overall he is doing quite well. He denies side effects his medication. [facility] #[id number] reviewed and appropriate. Urine drug screens have been appropriate in the past. ROS General: no recent weight change, no fever, no sleep disturbances Respiratory: no cough, no shortness of air, no recurring pulmonary infections Cardiovascular/Peripheral Vascular: No chest pain, No palpitations, no edema, no shortness of breath. Gastrointestinal: no incontinence, normal bowel movements reported Genitourinary: no incontinence Musculoskeletal: Back pain, leg pain Psychiatric: normal mood/ affect Neurological: [denies weakness in extremities], [denies balance issues] Objective:: Physical Exam General: Alert and oriented x3, no acute distress, pleasant and cooperative, [on room air] Lungs: Resps E/U, Symmetrical chest expansion, Eyes: PERRL Musculoskeletal: Flexion and extension of lumbar spine somewhat guarded secondary to pain, deep tendon reflexes normal, strength in upper and lower extremities [5/5], [abnormal gait noted] Neurological: speech clear, soup mixer equal, no gross sensory deficits Assessment:: Degenerative disc disease lumbar spine with lumbar radiculopathy, cervical degenerative disc disease cervical radiculopathy Plan:: We will refill the patient's [place] 10 mg 1 p.o. 4 times daily and gabapentin 800 mg 1 p.o. 3 times daily. Along with Elavil 25 mg at night we will add Celebrex 200 mg daily for 1 month. I will follow-up with the patient 3 months reassess his symptoms at that time. We will give him 2 months worth of medication and he can olive picker the third month in the interim. Patient has been instructed to call the office if he is still having additional pain in 2 weeks. Patient has been prescribed a controlled substance after being counseled on the medication, medication safety, and possible side effects. MARIA DE JESUS report has been obtained and reviewed prior to prescription and found to be appropriate. Opioid contract was reviewed and signed by the patient, and that they have agreed to all of the terms set forth by our compliance program. Dr. Gongora has reviewed this note and agrees with this plan of care. This note was dictated using voice recognition software and may contain errors or omissions
--- NOTE | 2019-05-04 09:21 | P.CONS_ITS ---
[facility] Pain Management SOAP Note Subjective:: Patient is a pleasant 69-year-old white male who presents today for follow-up. Patient had a fall recently and was seen in the ER and given steroids. He still having some residual pain however he states it is much better. We discussed adding an anti-inflammatory after he finishes his round of steroids until he is feeling better. Patient is currently managed with [place] 10 mg 1 tab p.o. 4 times daily along with gabapentin 800 mg 1 p.o. 3 times daily and Elavil 25 mg at nighttime. Overall he is doing quite well. He denies side effects his medication. [facility] #[id number] reviewed and appropriate. Urine drug screens have been appropriate in the past. ROS General: no recent weight change, no fever, no sleep disturbances Respiratory: no cough, no shortness of air, no recurring pulmonary infections Cardiovascular/Peripheral Vascular: No chest pain, No palpitations, no edema, no shortness of breath. Gastrointestinal: no incontinence, normal bowel movements reported Genitourinary: no incontinence Musculoskeletal: Back pain, leg pain Psychiatric: normal mood/ affect Neurological: [denies weakness in extremities], [denies balance issues] Objective:: Physical Exam General: Alert and oriented x3, no acute distress, pleasant and cooperative, [on room air] Lungs: Resps E/U, Symmetrical chest expansion, Eyes: PERRL Musculoskeletal: Flexion and extension of lumbar spine somewhat guarded secondary to pain, deep tendon reflexes normal, strength in upper and lower extremities [5/5], [abnormal gait noted] Neurological: speech clear, manager coding equal, no gross sensory deficits Assessment:: Degenerative disc disease lumbar spine with lumbar radiculopathy, cervical degenerative disc disease cervical radiculopathy Plan:: We will refill the patient's [place] 10 mg 1 p.o. 4 times daily and gabapentin 800 mg 1 p.o. 3 times daily. Along with Elavil 25 mg at night we will add Celebrex 200 mg daily for 1 month. I will follow-up with the patient 3 months reassess his symptoms at that time. 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 Patient has been instructed to call the office if he is still having additional pain in 2 weeks. Patient has been prescribed a controlled substance after being counseled on the medication, medication safety, and possible side effects. MARIA DE JESUS report has been obtained and reviewed prior to prescription and found to be appropriate. Opioid contract was reviewed and signed by the patient, and that they have agreed to all of the terms set forth by our compliance program. Dr. Gongora has reviewed this note and agrees with this plan of care. This note was dictated using voice recognition software and may contain errors or omissions
== END ==
PROVIDERS: PCP Nurse Practitioner Family; Visit Provider Clinical Nurse Specialist Family Health
DX: M51.16 Intervertebral disc disorders with radiculopathy, lumbar region (principal); M50.10 Cervical disc disorder with radiculopathy, unspecified cervical region
CPT/HCPCS: 99212

== ENCOUNTER → 2019-07-27 09:09 | Outpatient (POV) | payer MEDICARE, MEDICAID, SELFPAY ==
[2019-07-27 09:23] VITALS: BP 128/93; PULSE 57; RESP 18; O2SAT 98; BMI 24.3
--- NOTE | 2019-07-27 09:40 | HMH.PAINSOAP ---
[facility] Pain Management SOAP Note Subjective:: Patient is a pleasant 69-year-old white male who presents today for follow-up. Patient overall doing well rates pain a 4 out of 10. Patient currently being managed with [place] 10 mg 1 tab p.o. 4 times daily along with gabapentin 800 mg 1 p.o. 3 times daily and Elavil 25 mg at nighttime. Patient denies side effects his medication and states it helps up to 80%. He is being treated for degenerative disc disease lumbar spine with lumbar radiculopathy along with cervical degenerative disc disease. Patient's MARIA DE JESUS #[id number] reviewed and appropriate. Urine drug screens have been appropriate. ROS General: no recent weight change, no fever, no sleep disturbances Respiratory: no cough, no shortness of air, no recurring pulmonary infections Cardiovascular/Peripheral Vascular: No chest pain, No palpitations, no edema, no shortness of breath. Gastrointestinal: no incontinence, normal bowel movements reported Genitourinary: no incontinence Musculoskeletal: Back pain, leg pain, neck pain Psychiatric: normal mood/ affect, [denies depression], [denies anxiety] Neurological: [denies weakness in extremities], [denies balance issues] Objective:: Physical Exam General: Alert and oriented x3, no acute distress, pleasant and cooperative, [on room air] Lungs: Resps E/U, Symmetrical chest expansion, Eyes: PERRL Musculoskeletal: Flexion and extension of cervical and lumbar spine somewhat guarded secondary to pain, deep tendon reflexes normal, strength in upper and lower extremities [5/5], [abnormal gait noted] Neurological: speech clear, publications inspector equal, no gross sensory deficits Assessment:: degenerative 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 4 times daily along with gabapentin 800 mg 1 p.o. 3 times daily and Elavil 25 mg 1 p.o.QHs. 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 We will see him back in 3 months reassess his symptoms at that time he is instructed to call the office if he has any issues prior to his next appointment. Dr. Gongora has reviewed this note and agrees with this plan of care. This note was dictated using voice recognition software and may contain errors or omissions [facility] History I have reviewed the patient's past medical history: Yes Medical History: Reports:: Hypertension Denies:: Diabetes Mellitus Type 1, Diabetes Mellitus Type 2 *Have you ever received a pneumonia vaccine?: Yes *Have you received a flu vaccine this season?: Yes Laterality Cases: Bilateral: Other Other Surgeries: Yes: Other - *Social History Smoking Status: Never smoker Alcohol Intake: never *Occupational Status:: other Housing: apartment *Travel in the last 8 weeks: None Family Hx:: Hyperlipidemia
--- NOTE | 2019-07-27 09:45 | P.CONS_ITS ---
[facility] Pain Management SOAP Note Subjective:: Patient is a pleasant 69-year-old white male who presents today for follow-up. Patient overall doing well rates pain a 4 out of 10. Patient currently being managed with [place] 10 mg 1 tab p.o. 4 times daily along with gabapentin 800 mg 1 p.o. 3 times daily and Elavil 25 mg at nighttime. Patient denies side effects his medication and states it helps up to 80%. He is being treated for degenerative disc disease lumbar spine with lumbar radiculopathy along with cervical degenerative disc disease. Patient's MARIA DE JESUS #[id number] reviewed and appropriate. Urine drug screens have been appropriate. ROS General: no recent weight change, no fever, no sleep disturbances Respiratory: no cough, no shortness of air, no recurring pulmonary infections Cardiovascular/Peripheral Vascular: No chest pain, No palpitations, no edema, no shortness of breath. Gastrointestinal: no incontinence, normal bowel movements reported Genitourinary: no incontinence Musculoskeletal: Back pain, leg pain, neck pain Psychiatric: normal mood/ affect, [denies depression], [denies anxiety] Neurological: [denies weakness in extremities], [denies balance issues] Objective:: Physical Exam General: Alert and oriented x3, no acute distress, pleasant and cooperative, [on room air] Lungs: Resps E/U, Symmetrical chest expansion, Eyes: PERRL Musculoskeletal: Flexion and extension of cervical and lumbar spine somewhat guarded secondary to pain, deep tendon reflexes normal, strength in upper and lower extremities [5/5], [abnormal gait noted] Neurological: speech clear, hat conditioner equal, no gross sensory deficits Assessment:: degenerative disc disease lumbar spine with lumbar radiculopathy and degenerative disc disease cervical spinal cervical radiculopathy Plan:: We will refill the patient's [place] 10 mg 1 tab p.o. 4 times daily along with gabapentin 800 mg 1 p.o. 3 times daily and Elavil 25 mg 1 p.o.QHs. 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 We will see him back in 3 months reassess his symptoms at that time he is instructed to call the office if he has any issues prior to his next appointment. Dr. Gongora has reviewed this note and agrees with this plan of care. This note was dictated using voice recognition software and may contain errors or omissions [facility] History I have reviewed the patient's past medical history: Yes Medical History: Reports:: Hypertension Denies:: Diabetes Mellitus Type 1, Diabetes Mellitus Type 2 *Have you ever received a pneumonia vaccine?: Yes *Have you received a flu vaccine this season?: Yes Laterality Cases: Bilateral: Other Other Surgeries: Yes: Other - *Social History Smoking Status: Never smoker Alcohol Intake: never *Occupational Status:: other Housing: apartment *Travel in the last 8 weeks: None Family Hx:: Hyperlipidemia
--- NOTE | 2019-08-17 09:06 | PC.NURSE ---
GABAPENTIN 800MG PO QID WITH 2 REFILLS FAXED TO [facility] PER PROVIDER ORDER
== END ==
PROVIDERS: PCP Family Medicine; Visit Provider Clinical Nurse Specialist Family Health
DX: M51.16 Intervertebral disc disorders with radiculopathy, lumbar region (principal); M50.10 Cervical disc disorder with radiculopathy, unspecified cervical region
CPT/HCPCS: 99212

== ENCOUNTER → 2019-09-22 14:09 | Outpatient (CLI) | payer MEDICARE, MEDICAID, SELFPAY ==
[2019-09-22 19:42] LABS: Amphetamine/Metha Screen,Urine Negative ng/mL (<1000); Barbiturates Screen,Urine Negative ng/mL (<200); Benzodiazepines Screen,Urine Negative ng/mL (<200); Cannabinoid Screen,Urine Negative ng/mL (<50); Cocaine Screen,Urine Negative ng/mL (<300); Methadone Screen,Urine Negative ng/mL (<300); Opiate Screen,Urine Positive ng/mL (<300); Phencyclidine Screen,Urine Negative ng/mL (<25)
[2019-10-01 15:47] LABS: Codeine Negative (Cutoff=100); Hydrocodone Positive (.); Hydromorphone Positive (.); Morphine Negative (Cutoff=100)
[2019-10-02 10:46] LABS: Opiates Positive (.)
== END ==
PROVIDERS: Visit Provider Clinical Nurse Specialist Family Health
DX: Z79.899 Other long term (current) drug therapy (principal)
CPT/HCPCS: 36415; 80305; 80361; 80365; G0480

== ENCOUNTER → 2019-10-26 09:06 | Outpatient (POV) | payer MEDICARE, MEDICAID, SELFPAY ==
[2019-10-26 09:19] VITALS: BP 169/97; PULSE 50; RESP 18; O2SAT 99; BMI 26.6
--- NOTE | 2019-10-26 09:19 | P.CONS_ITS ---
[facility] Pain Management SOAP Note Subjective:: Patient is a pleasant 69-year-old white male who presents today for medication refill. He is being treated for low back pain with lumbar radiculopathy symptoms as well as neck pain with cervical radiculopathy symptoms. Patient rates his pain a 5 out of 10 today. He is concerned because his blood pressure is elevated today 160s over 90s. Patient says this is very high for him. Patient does admit that he has not taken blood pressure medication and just recently took his pain medication. Patient does say that he gets approximately 70 to 80% relief with his medication regimen. He is currently on gabapentin 800 mg 1 tablet p.o. 4 times daily and [place] 10 mg 1 tablet p.o. 4 times daily. He also takes Elavil 25 mg at bedtime. He denies any side effects to his medications. His Maria De Jesus #[id number] has been reviewed and is appropriate. His urine drug screens are appropriate. Review of Systems General: No recent weight changes, no fever, no sleep disturbances Respiratory: No cough, no shortness of air, no recurring pulmonary infections Cardiovascular/peripheral vascular: No chest pain, no palpitations, no edema, no shortness of breath Gastrointestinal: No new onset incontinence, normal bowel movements reported Genitourinary: No new onset incontinence Musculoskeletal: Neck and low back pain Psychiatric: Normal mood/affect Neurological: [Denies weakness in extremities], [denies balance issues] Objective:: Physical exam General: Alert and oriented x3, no acute distress, pleasant and cooperative, [on room air] Lungs: Respirations even and unlabored, symmetrical chest expansion Eyes: PERRL Musculoskeletal: Flexion and extension of: Cervical and lumbar spine somewhat guarded secondary to pain, deep tendon reflexes normal, strength in upper and lower extremities [5/5], [abnormal gait noted] Neurological: Speech clear, ship's electronic 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 4 times daily and gabapentin 800 mg 1 tablet p.o. 4 times daily. The patient currently has refills on his Elavil. 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 We will see him back in 3 months to reassess his symptoms. He has been instructed to contact the clinic if he has any concerns before his next appointment. Dr. Gongora has reviewed this note and agrees with this plan of care. This note was dictated using voice recognition software and make contain errors or omissions. Patient has been prescribed a controlled substance after being counseled on the medication, medication safety, and possible side effects. MARIA DE JESUS report has been obtained and reviewed prior to prescription and found to be appropriate. Opioid contract was reviewed and signed by the patient, and that they have agreed to all of the terms set forth by our compliance program. [facility] History I have reviewed the patient's past medical history: Yes Medical History: Reports:: Hypertension Denies:: Diabetes Mellitus Type 1, Diabetes Mellitus Type 2 *Have you ever received a pneumonia vaccine?: Yes *Have you received a flu vaccine this season?: Yes Laterality Cases: Bilateral: Other Other Surgeries: Yes: Other - *Social History Smoking Status: Never smoker Alcohol Intake: never *Occupational Status:: other Housing: apartment *Travel in the last 8 weeks: None Family Hx:: Hyperlipidemia
== END ==
PROVIDERS: PCP Family Medicine; Visit Provider Clinical Nurse Specialist Family Health
DX: M51.16 Intervertebral disc disorders with radiculopathy, lumbar region (principal); M50.10 Cervical disc disorder with radiculopathy, unspecified cervical region
CPT/HCPCS: 99212

== ENCOUNTER → 2019-11-16 13:19 | Outpatient (CLI) | payer MEDICARE, SELFPAY ==
--- NOTE | 2019-11-16 13:23 | CA_ITS ---
APPROVED REPORT Geriatric Care Manager: BOLIVAR Laterality: Bilateral Study Quality: Good Indications: Dizziness and Vertigo, BLURRED VISION Doppler Spectral Velocity Analysis dICA (R) 64.40/24.80 cm/s dICA (L) 94.80/28.00 cm/s Mabel (R) 63.40/20.80 cm/s Mabel (L) 79.90/25.50 cm/s pICA (R) 57.90/13.80 cm/s pICA (L) 58.50/16.50 cm/s dCCA (R) 82.70/25.40 cm/s dCCA (L) 93.70/27.10 cm/s pCCA (R) 94.40/21.20 cm/s pCCA (L) 93.00/18.60 cm/s Vert (R) 38.50/9.60 cm/s Vert (L) 63.60/21.50 cm/s ICA/CCA 0.78 ICA/CCA 1.00 Findings Duplex evaluation demonstrates stenosis of the right proximal internal carotid artery <20% with PSV <140 cm/sec, EDV <100 cm/sec, and IC/CC Ratio <4.0.Duplex evaluation demonstrates stenosis of the left proximal internal carotid artery <20% with PSV <140 cm/sec, EDV <100 cm/sec, and IC/CC Ratio <4.0.Antegrade flow seen bilateral vertebral arteries. Conclusion Duplex evaluation demonstrates stenosis of the right proximal internal carotid artery <20% with PSV <140 cm/sec, EDV <100 cm/sec, and IC/CC Ratio <4.0.Duplex evaluation demonstrates stenosis of the left proximal internal carotid artery <20% with PSV <140 cm/sec, EDV <100 cm/sec, and IC/CC Ratio <4.0.Antegrade flow seen bilateral vertebral arteries. Electronically signed by : Tk Jeter, 11/16/2019 14:57:50
--- NOTE | 2019-11-16 14:09 | MR_ITS ---
PROCEDURE: MR HEAD/BRAIN WO CON CLINICAL INDICATION: DIZZINESS, BLURRED VISION COMPARISON: No exams were available for comparison TECHNIQUE: Routine multi planar multi sequence exam FINDINGS: There is a moderate amount of FLAIR/T2 hyperintensity in the bilateral cerebral white matter and a small amount is seen in the left basilar barby. Microvascular disease should be considered 1st. There is a probable no acute infarction, intracranial hemorrhage, mass, mass effect, or extra-axial fluid collection. Normal flow voids are seen in both vertebral arteries and the basilar artery. There is mild mucosal thickening of sinusitis in the ethmoid and sphenoid and right maxillary sinuses without an air-fluid level. IMPRESSION: Findings consistent with moderate small operations research engineer vessel ischemic gliotic disease. Sinusitis. Dictated by: Tk Jeter 11/16/2019 16:07 Electronically signed by Tk Jeter in [place] 11/16/2019 16:07
== END ==
PROVIDERS: PCP Family Medicine; Visit Provider Nurse Practitioner Family
DX: R42 Dizziness and giddiness (principal); H53.8 Other visual disturbances
CPT/HCPCS: 70551; 93880

== ENCOUNTER → 2019-12-29 10:03 | Outpatient (CLI) | payer MEDICARE, SELFPAY ==
[2019-12-29 15:44] LABS: Barbiturates Screen,Urine Negative ng/ml (<200)
[2019-12-29 15:45] LABS: Benzodiazepines Screen,Urine Negative ng/ml (<200)
[2019-12-29 15:46] LABS: Amphetamine/Metha Screen,Urine Negative ng/ml (<1000); Cannabinoid Screen,Urine Negative ng/ml (<50)
[2019-12-29 15:47] LABS: Cocaine Screen,Urine Negative ng/ml (<300)
[2019-12-29 15:48] LABS: Methadone Screen,Urine Negative ng/ml (<300); Opiate Screen,Urine Positive ng/ml (<300)
[2019-12-29 15:49] LABS: Phencyclidine Screen,Urine Negative ng/ml (<25)
[2020-01-06 09:10] LABS: Codeine Negative (Cutoff=100); Hydrocodone Positive (.); Hydromorphone Positive (.); Morphine Negative (Cutoff=100)
[2020-01-06 16:09] LABS: Opiates Positive (.)
== END ==
PROVIDERS: Visit Provider Clinical Nurse Specialist Family Health
DX: Z79.899 Other long term (current) drug therapy (principal)
CPT/HCPCS: 80305; 80361; 80365; G0480

== ENCOUNTER → 2020-01-18 09:00 | Outpatient (POV) | payer MEDICARE, MEDICAID, SELFPAY ==
[2020-01-18 09:13] VITALS: BP 120/98; PULSE 63; RESP 18; O2SAT 98; BMI 25.0
--- NOTE | 2020-01-18 12:51 | P.CONS_ITS ---
[facility] Pain Management SOAP Note Subjective:: Patient is a pleasant 69-year-old white male who presents today for medication refills. He is being treated for low back pain with lumbar radiculopathy symptoms as well as neck pain with cervical radiculopathy symptoms. Patient rates his pain a 5 out of 10 today which is at baseline. Patient overall doing well and states that the medication helps up to 80%. He is currently on [place] 10 mg 1 p.o. 4 times daily and gabapentin 800 mg 1 p.o. 4 times daily. Maria De Jesus #[id number] reviewed and appropriate. Urine drug screens have been appropriate. ROS General: no recent weight change, no fever, no sleep disturbances Respiratory: no cough, no shortness of air, no recurring pulmonary infections Cardiovascular/Peripheral Vascular: No chest pain, No palpitations, no edema, no shortness of breath. Gastrointestinal: no new onset incontinence, normal bowel movements reported Genitourinary: no new onset incontinence Musculoskeletal: Back pain, neck pain Psychiatric: normal mood/ affect Neurological: [denies new onset weakness in extremities], [denies new onset balance issues] Objective:: Physical Exam General: Alert and oriented x3, no acute distress, pleasant and cooperative, [on room air] Lungs: Resps E/U, Symmetrical chest expansion, Eyes: PERRL Musculoskeletal: Flexion and extension of cervical and lumbar spine somewhat guarded secondary to pain, deep tendon reflexes normal, strength in upper and lower extremities [5/5], [abnormal gait noted] Neurological: speech clear, 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 4 times daily along with his gabapentin 800 mg 1 p.o. 4 times daily. Patient's been instructed to call the office if he has any issues prior to his next appointment. We will see him in 3 months. 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 Patient has been prescribed a controlled substance after being counseled on the medication, medication safety, and possible side effects. MARIA DE JESUS report has been obtained and reviewed prior to prescription and found to be appropriate. Opioid contract was reviewed and signed by the patient, and that they have agreed to all of the terms set forth by our compliance program. Dr. Gongora has reviewed this note and agrees with this plan of care. This note was dictated using voice recognition software and may contain errors or omissions [facility] History I have reviewed the patient's past medical history: Yes Medical History: Reports:: Hypertension Denies:: Diabetes Mellitus Type 1, Diabetes Mellitus Type 2 *Have you ever received a pneumonia vaccine?: Yes *Have you received a flu vaccine this season?: Yes Laterality Cases: Bilateral: Other Other Surgeries: Yes: Other - *Social History Smoking Status: Never smoker Alcohol Intake: never *Occupational Status:: other Housing: apartment *Travel in the last 8 weeks: None Family Hx:: Hyperlipidemia
== END ==
PROVIDERS: PCP Nurse Practitioner Family; Visit Provider Clinical Nurse Specialist Family Health
DX: M50.10 Cervical disc disorder with radiculopathy, unspecified cervical region (principal); M51.16 Intervertebral disc disorders with radiculopathy, lumbar region
CPT/HCPCS: 99212

== ENCOUNTER 2020-03-27 18:26 | Emergency (ER) | payer MEDICARE, SELFPAY ==
[2020-03-27 18:27] VITALS: BP 156/94; PULSE 78; RESP 20; TEMP 36.8; O2SAT 96; BMI 24.9
--- NOTE | 2020-03-27 18:44 | XR_ITS ---
PROCEDURE: XR HAND RT MIN 3V CLINICAL INDICATION: injury Posttraumatic pain COMPARISON: HANDR3 HAND-RT 3 VIEWS from 12/04/2014 HANDR3 HAND-RT 3 VIEWS from 12/22/2014 FINDINGS: No acute fracture is evident. There is a short 4th metacarpal consistent with an old fracture. Mild osteoarthritic changes are present at the DIP joints of the 2nd 3rd and 4th fingers. IMPRESSION: No acute findings. Dictated by: Steve Ross MD 03/27/2020 19:29 Electronically signed by Steve Ross MD in [place] 03/27/2020 19:29
--- NOTE | 2020-03-27 18:44 | XR_ITS ---
PROCEDURE: XR CHEST 2V CLINICAL HISTORY: cough Cough and shortness of breath COMPARISON: CXR1 CHEST-PORTABLE from 08/13/2015 CXR CHEST(2 VIEWS-NOT PORTABLE) from 10/19/2016 XR CHEST 2V from 07/31/2019 FINDINGS: The cardiomediastinal silhouette and pulmonary vascularity are within normal limits. The lungs are clear without infiltrates, suspicious nodules, or pleural effusions. No acute bony abnormalities. IMPRESSION: No change with no acute finding Dictated by: Steve Ross MD 03/27/2020 19:30 Electronically signed by Steve Ross MD in [place] 03/27/2020 19:30
--- NOTE | 2020-03-27 18:47 | HMH.EDUTC ---
[facility] Disposition Clinical Impression: Otitis media Qualifiers: Otitis media type: unspecified Laterality: bilateral Qualified Code(s): H66.93 - Otitis media, unspecified, bilateral Finger laceration Qualifiers: Encounter type: initial encounter Finger: middle finger Damage to nail status: without damage Foreign body presence: without foreign body Laterality: right Qualified Code(s): S61.212A - Laceration without foreign body of right middle finger without damage to nail, initial encounter Disposition: Home, Self-Care Condition on Discharge: Good Instructions: Middle Ear Infection, Middle Ear Infections (Alternative Therapy), Cefdinir, DI for Laceration Repair With Dermabond, DI for Laceration Repair Steri-Strips, How To Perform RICE (Rest, Ice, Compress, Elevate) Additional Instructions: *RICE, Rest the extremity, Ice 15-20 minutes 3-4 times daily, Compress- wear the sukhdev wrap as discussed as much as possible to help reduce swelling and pain, Elevate the extremity when at rest *Sukhdev wrap is for support and help control swelling, use it except in the shower. Be sure that is not to tight but not to loose either *Elevate when resting *Ibuprofen every 6-8 hours as needed for pain an inflammation. If need something more can take Tylenol in between doses of Ibuprofen to help Immediately follow up with your family doctor for new or worsening of symptoms, or no noticeable improvement over the next 3-5 days Wear finger splint as advised Keep wound area on finger clean and dry and do not pick off dermabond allow it to wear off Return if needed Straight to ER if any life threatening symptoms Prescriptions: Cefdinir [Omnicef 300mg Capsule] 300 mg PO BID #20 cap Transmission Status: Pending to [facility] Referrals: Rodríguez Lagos MD [Primary Care Provider] - As needed Time of Disposition: 19:40 Medical Decision Making - Siva Inquiry Pt receiving controlled substance: No Siva was queried for this patient: No Vital Signs: 03/27/20 18:27 Temperature 98.2 F Temperature Source Oral Pulse Rate [Radial] 78 Respiratory Rate 20 Blood Pressure [Right Arm] 156/94 H Blood Pressure Mean [Right Arm] 114 Blood Pressure Source [Right Arm] Automatic Cuff Blood Pressure Position [Right Arm] Sitting 02 Sat by Pulse Oximetry 96 Oxygen Delivery Method Room Air Orders (Tests/Meds): ED MEDICATIONS Discontinued Medications Generic Name Dose Route Start Last Admin Trade Name Mic PRN Reason Stop Dose Admin Clindamycin HCl 300 mg 03/27/20 19:16 Cleocin 150mg Capsule PO 03/27/20 19:17 ONCE ONE Protocol ORDERS Category Date Time Status XR chest 2V Stat Exams 03/27/20 18:44 Taken XR hand RT min 3V Stat Exams 03/27/20 18:44 Taken - Radiology Data #1 Image(s): Chest Image Reviewed: Yes I reviewed the patient's radiology image w/the ED provider Discussed with Dr Salinas no acute finding #2 Image(s): Hand Image Reviewed: Yes I reviewed the patient's radiology image [facility] HPI - General Stated complaint: cough dizzy Time Seen by Provider: 03/27/20 18:47 Mode of Arrival: Ambulatory Source of Information: Patient Limitations: No Limitations Description of Symptoms (Recalled from Triage Doc. by RN): thinks he has the pneumonia and a broken right middle finger. HEENT Symptoms (Recalled from RN notes): No Resp Symptoms (Recalled from RN notes): Yes Skin Symptoms (Recalled from RN notes): Yes MS Symptoms (Recalled from RN notes): Yes Functional Status (Recalled from RN notes): wnl - History of Present Illness Provider Complaint: Patient state that he was recently on antibiotics for bronchitis and dont think it cleared it up or he has pneumonia again State that he having pain in both ears and think they may be infected States that also sometime early this morning he tripped and fell and hit his hand on the floor and having pain in his right middle finger and has a cut on there he wants looke
[2020-03-27 19:51] VITALS: BP 156/94; PULSE 78; RESP 20; TEMP 36.8; O2SAT 96
== END 2020-03-27 19:52 | disposition home or self-care (01) ==
PROVIDERS: Emergency Provider Nurse Practitioner; PCP Family Medicine
DX: H66.93 Otitis media, unspecified, bilateral (principal); S61.212A Laceration without foreign body of right middle finger without damage to nail, initial encounter; I10 Essential (primary) hypertension; K21.9 Gastro-esophageal reflux disease without esophagitis; E78.5 Hyperlipidemia, unspecified; W01.0XXA Fall on same level from slipping, tripping and stumbling without subsequent striking against object, initial encounter; Y92.019 Unspecified place in single-family (private) house as the place of occurrence of the external cause
CPT/HCPCS: 12001; G0463; 71046; 73130; 99202

== ENCOUNTER → 2020-04-15 14:58 | Outpatient (CLI) | payer MEDICARE, SELFPAY ==
--- NOTE | 2020-04-15 15:05 | XR_ITS ---
PROCEDURE: XR CHEST 2V CLINICAL HISTORY: COUGH,SOB COMPARISON: CXR CHEST(2 VIEWS-NOT PORTABLE) from 10/19/2016 XR CHEST 2V from 07/31/2019 XR CHEST 2V from 03/27/2020 FINDINGS: The cardiomediastinal silhouette and pulmonary vascularity are within normal limits. The lungs are clear without infiltrates, suspicious nodules, or pleural effusions. There are degenerative changes in the shoulders and spine IMPRESSION: No acute findings. Dictated by: Steve Ross MD 04/15/2020 15:31 Electronically signed by Steve Ross MD in [place] 04/15/2020 15:31
== END ==
PROVIDERS: PCP Nurse Practitioner Family; Visit Provider Nurse Practitioner Family
DX: R05 Cough (principal); R06.02 Shortness of breath
CPT/HCPCS: 71046

== ENCOUNTER 2020-04-17 18:45 | Emergency (ER) | payer MEDICARE, SELFPAY ==
[2020-04-17 18:58] VITALS: BP 137/97; PULSE 71; RESP 16; TEMP 37.2; O2SAT 98; BMI 25.8
[2020-04-17 19:04] VITALS: BP 137/97; PULSE 71; RESP 16; TEMP 37.2; O2SAT 98; BMI 25.7
--- NOTE | 2020-04-17 19:26 | HMH.EDUTC ---
[facility] [place] Disposition Clinical Impression: Neck pain Radiculopathy Qualifiers: Spinal region: unspecified Qualified Code(s): M54.10 - Radiculopathy, site unspecified Disposition: Home, Self-Care Condition on Discharge: Good Instructions: DI for Cervical Radiculopathy, DI for Neck Pain Additional Instructions: Go home and rest. No heavy lifting. No twisting. Take the oral medications as directed. Follow up with your regular doctor. GO TO THE ER FOR ANY WORSENING SYMPTOMS OR CONCERN, ESPECIALLY BOWEL OR BLADDER ISSUES, SADDLE AREA NUMBNESS, FEVER, ETC Prescriptions: Ibuprofen [Ibuprofen 600mg Tablet] 600 mg PO Q6HP PRN #30 tab PRN Reason: Mild Pain Transmission Status: Received by [facility] Referrals: Rodríguez Lagos MD [Primary Care Provider] - Time of Disposition: 19:58 Medical Decision Making - Medical Records Medical records reviewed: No: I reviewed the patient's medical records. - Siva Inquiry Pt receiving controlled substance: No Vital Signs: 04/17/20 18:58 04/17/20 19:04 04/17/20 19:57 Temperature 98.9 F 98.9 F 98.9 F Temperature Source Oral Oral Pulse Rate 71 Pulse Rate [Left Radial] 71 71 Respiratory Rate 16 16 16 Blood Pressure 137/97 H Blood Pressure [Right Arm] 137/97 H 137/97 H Blood Pressure Mean [Right Arm] 110 110 Blood Pressure Source [Right Arm] Automatic Cuff Blood Pressure Position [Right Arm] Sitting Sitting 02 Sat by Pulse Oximetry 98 98 Oxygen Delivery Method Room Air Room Air Orders (Tests/Meds): ED MEDICATIONS Discontinued Medications Generic Name Dose Route Start Last Admin Trade Name Freq PRN Reason Stop Dose Admin Ketorolac Tromethamine 30 mg 04/17/20 19:27 04/17/20 19:35 Toradol 60mg/2ml Vial IM 04/17/20 19:28 30 mg ONCE ONE Administration Methylprednisolone Sodium Succinate 125 mg 04/17/20 19:27 04/17/20 19:35 Solu-Medrol 125mg/2ml Vial IM 04/17/20 19:28 125 mg ONCE ONE Administration [facility] [place] HPI - General Stated complaint: Back pain Time Seen by Provider: 04/17/20 19:00 Mode of Arrival: Ambulatory Source of Information: Patient Limitations: No Limitations Description of Symptoms (Recalled from Triage Doc. by RN): c/o numbness and tingling hands and fingers having difficulty gripping objects. pt with hx of plates in cervical spine approx 5 years ago. states he was mowing the lawn and weed eating yesterday and symptoms progressively getting worse. HEENT Symptoms (Recalled from RN notes): No Resp Symptoms (Recalled from RN notes): No Skin Symptoms (Recalled from RN notes): No MS Symptoms (Recalled from RN notes): Yes Functional Status (Recalled from RN notes): WNL - History of Present Illness Provider Complaint: He has a long history of chronic neck pain. He states that he mowed his grass yesterday and since then he has had pain and stifness of his neck. He denies any recent injury or fall. - Related Data Home Medications Medication Instructions Recorded Confirmed Gabapentin 800 mg PO TID 07/31/19 07/31/19 Lisinopril/Hydrochlorothiazide 1 tab PO DAILY 07/31/19 07/31/19 [Lisinopril-Hctz 20-25 mg Tab] Montelukast Sodium [Singulair 10mg 10 mg PO PM 07/31/19 07/31/19 tablet] Omeprazole [Omeprazole 40mg 40 mg PO DAILY 07/31/19 07/31/19 Capsule] Potassium Chloride 20 meq PO DAILY 07/31/19 07/31/19 Simvastatin 20 mg PO HS 07/31/19 07/31/19 Previous Rx's Medication Instructions Recorded Cefdinir [Omnicef 300mg Capsule] 300 mg PO BID #20 cap 07/31/19 Ondansetron [Zofran 4mg ODT] 4 mg PO Q6HP PRN 5 Days #10 07/31/19 tab.rapdis predniSONE [Prednisone 20mg 20 mg PO BID 5 Days #10 tab 07/31/19 Tab] Hydrocodone/Acetaminophen [[place] 1 tab PO QID #120 tab 02/15/20 10-325 Tablet] Cefdinir [Omnicef 300mg Capsule] 300 mg PO BID #20 cap 03/27/20 Hydrocodone/Acetaminophen [Lortab 1 tab PO Q6H #120 tab 03/30/20 10/325mg tablet] Ibuprofen [Ibuprofen
[2020-04-17 19:57] VITALS: BP 137/97; PULSE 71; RESP 16; TEMP 37.2; O2SAT 98
== END 2020-04-17 20:00 | disposition home or self-care (01) ==
PROVIDERS: Emergency Provider Nurse Practitioner Family; PCP Family Medicine
DX: M54.10 Radiculopathy, site unspecified (principal); I10 Essential (primary) hypertension; Z79.899 Other long term (current) drug therapy; Z88.5 Allergy status to narcotic agent
CPT/HCPCS: G0463; 96372; 99201

== ENCOUNTER → 2020-04-18 09:03 | Outpatient (POV) | payer MEDICARE, SELFPAY ==
[2020-04-18 09:30] VITALS: BP 140/85; PULSE 85; RESP 18; TEMP 36.8; O2SAT 99; BMI 26.4
--- NOTE | 2020-04-18 09:54 | P.CONS_ITS ---
[facility] Pain Management SOAP Note Subjective:: Patient is a very pleasant 70-year-old white male who presents today for follow- up. Patient has had extreme neck pain which sent him to the ER yesterday. Patient does have hardware in his cervical spine. Patient has not had any diagnostic imaging in regards to this. He rates his pain a 4 out of 10 today. He has difficulty with rotating his neck. He is currently on [place] 10 mg 1 tab p.o. 4 times daily and 800 mg gabapentin 4 times daily. Patient states this is not helping his pain. He is also on prednisone from his primary care physician. Patient's [facility] De Jesus #[id number] reviewed and appropriate urine drug screens have been appropriate. We will refill his [place] 10 mg 1 p.o. 4 times daily and gabapentin 800 mg 1 p.o. 4 times daily. Patient does have numbness and tingling in bilateral hands. ROS General: no recent weight change, no fever, no sleep disturbances Respiratory: no cough, no shortness of air, no recurring pulmonary infections Cardiovascular/Peripheral Vascular: No chest pain, No palpitations, no edema, no shortness of breath. Gastrointestinal: no new onset incontinence, normal bowel movements reported Genitourinary: no new onset incontinence Musculoskeletal: Neck pain, arm pain Psychiatric: normal mood/ affect Neurological: [denies new onset weakness in extremities], [denies new onset balance issues] Objective:: Physical Exam General: Alert and oriented x3, no acute distress, pleasant and cooperative, [on room air] Lungs: Resps E/U, Symmetrical chest expansion, Eyes: PERRL Musculoskeletal: Flexion and extension of cervical spine somewhat guarded secondary to pain, deep tendon reflexes normal, strength in upper and lower extremities [5/5], [abnormal gait noted] Neurological: speech clear, mobile solutions architect equal, no gross sensory deficits Assessment:: Postlaminectomy syndrome cervical spine, degenerative disc disease cervical spine with cervical radiculopathy Plan:: We will order an MRI for the patient will continue his [place] and gabapentin. We will see him back after his MRI reassess his symptoms at that time he has been instructed to call the office if he has any issues prior to his next appointment. Dr. Gongora has reviewed this note and agrees with this plan of care. This note was dictated using voice recognition software and may contain errors or omissions Patient has been prescribed a controlled substance after being counseled on the medication, medication safety, and possible side effects. MARIA DE JESUS report has been obtained and reviewed prior to prescription and found to be appropriate. Opioid contract was reviewed and signed by the patient, and that they have agreed to all of the terms set forth by our compliance program. [facility] History I have reviewed the patient's past medical history: Yes Medical History: Reports:: Hypertension Denies:: Diabetes Mellitus Type 1, Diabetes Mellitus Type 2 *Have you ever received a pneumonia vaccine?: Yes *Have you received a flu vaccine this season?: Yes Laterality Cases: Bilateral: Other Other Surgeries: Yes: Other - *Social History Smoking Status: Never smoker Alcohol Intake: never *Occupational Status:: other Housing: house *Travel in the last 8 weeks: None Family Hx:: Hyperlipidemia
== END ==
PROVIDERS: PCP Nurse Practitioner Family; Visit Provider Clinical Nurse Specialist Family Health
DX: M96.1 Postlaminectomy syndrome, not elsewhere classified (principal); M50.10 Cervical disc disorder with radiculopathy, unspecified cervical region
CPT/HCPCS: 99212

== ENCOUNTER → 2020-04-21 10:56 | Outpatient (CLI) | payer MEDICARE, SELFPAY ==
--- NOTE | 2020-04-21 10:59 | MR_ITS ---
PROCEDURE: MR CERVICAL SPINE WO CON CLINICAL INDICATION: NECK PAIN COMPARISON: No exams were available for comparison TECHNIQUE: Standard multiplanar multiecho sequences are performed without contrast. 3-D MIP and myelographic images are also rendered and reviewed FINDINGS: There is good alignment of the bony structures. The spinal cord, cerebellar tonsils, and midbrain is unremarkable. There is degenerative narrowing of the C4-C5, C5-C6, C6-7 disc spaces with Modic endplate changes. Patient is status post C5-6 ACDF. At the C2-3 disc space there is a broad-based disc protrusion producing minimal central canal stenosis. At the C3-C4 disc space there is a broad-based disc protrusion with a superimposed overgrowth of the right uncovertebral joint producing mild central canal, mild right lateral recess, and mild right neural foraminal stenosis. At the C4-C5 disc space there is a broad-based disc osteophyte complex and overgrowth of the left uncovertebral joint producing mild central canal, moderate left lateral recess, and moderate left neural foraminal stenosis. At the C5-6 disc space there is a broad-based disc protrusion and a superimposed overgrowth of the right uncovertebral joint producing mild central canal and [id number] right lateral recess and mild to moderate right neural foraminal stenosis. At the C6-7 disc space there is a broad-based disc protrusion and overgrowth of the right uncovertebral joint producing mild central canal, mild left neural foraminal, [id number] right neural foraminal stenosis. At the C7-T1 disc space there are no significant stenotic changes. The paracervical structures are unremarkable. IMPRESSION: Status post C5-C6 ACDF, multilevel spinal stenosis as described above Dictated by: Joao Murdock 04/21/2020 13:39 Electronically signed by Joao Murdock in [place] 04/21/2020 13:39
== END ==
PROVIDERS: PCP Nurse Practitioner Family; Visit Provider Clinical Nurse Specialist Family Health
DX: M54.2 Cervicalgia (principal)
CPT/HCPCS: 72141; 76376

== ENCOUNTER → 2020-04-28 11:19 | Outpatient (POV) | payer MEDICARE, SELFPAY ==
[2020-04-28 11:38] VITALS: BP 140/72; PULSE 64; RESP 18; TEMP 36.8; O2SAT 99; BMI 25.0
--- NOTE | 2020-04-28 12:37 | HMH.PAINSOAP ---
[facility] Pain Management SOAP Note Subjective:: Patient is a pleasant 70-year-old white male who presents today for medication refill. He is being treated for neck pain and bilateral arm pain. Patient does have hardware in his cervical spine. The patient did undergo an MRI of his cervical spine. He says that the medications do seem to give him relief. He is complaining, however, mostly of bilateral shoulder pain today. Patient has undergone bilateral shoulder injections in the past and has gotten up to 80% relief following the injections for up to 2 weeks. He is currently managed with oral medications of gabapentin 800 mg 1 tablet p.o. 4 times daily and Adel 10 mg 1 tablet p.o. 4 times daily. The patient denies any side effects to the medications. His Siva #[id number] has been reviewed and is appropriate. His morphine equivalent is 40. Patient would like to undergo bilateral shoulder injections to see if this gives him some relief. He does rate his pain a 6 out of 10 today. Review of Systems General: No recent weight changes, no fever, no sleep disturbances Respiratory: No cough, no shortness of air, no recurring pulmonary infections Cardiovascular/peripheral vascular: No chest pain, no palpitations, no edema, no shortness of breath Gastrointestinal: No new onset incontinence, normal bowel movements reported Genitourinary: No new onset incontinence Musculoskeletal: Bilateral shoulder pain, neck pain Psychiatric: Normal mood/affect Neurological: [Denies weakness in extremities], [denies balance issues] Objective:: Physical exam General: Alert and oriented x3, no acute distress, pleasant and cooperative, on room air Lungs: Respirations even and unlabored, symmetrical chest expansion Eyes: PERRL Musculoskeletal: Flexion and extension of cervical spine somewhat guarded secondary to pain, deep tendon reflexes normal, strength in upper and lower extremities [5/5], slightly antalgic gait noted Neurological: Speech clear, tungsten tender equal, no gross sensory deficit Assessment:: Bilateral shoulder pain degenerative disc disease cervical spine with cervical radiculopathy, facet arthropathy Plan:: We will plan for bilateral SI joint injections for the patient. He has undergone these injections in the past and has gotten up to 80% relief. We will also refill the patient's gabapentin 800 mg 1 tablet p.o. 4 times daily and his Adel 10 mg 1 tablet p.o. 4 times daily. 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 We will plan to see the patient back in the clinic in 3 months to reassess his symptoms. He has been instructed to contact the clinic if he has any concerns before his next appointment. The patient and I specifically discussed risk factors for COVID19. These risks include, but are not limited to age greater than 60, heart or lung disease, diabetes, immunosuppression, and travel. We also discussed NSAIDs may worsen COVID19 infection or symptoms. Patient should not use NSAIDs to treat COVID19 signs or symptoms. Patient was also informed that any type of corticosteroid of any form (oral or injection) will decrease the patient's immune system response and may increase the likelihood of COVID19 infection [address] symptoms[address] Dr. Gongora has reviewed this note and agrees with this plan of care. This note was dictated using voice recognition software and make contain errors or omissions. [facility] History I have reviewed the patient's past medical history: Yes Medical History: Reports:: Hypertension Denies:: Diabetes Mellitus Type 1, Diabetes Mellitus Type 2 *Have you ever received a pneumonia vaccine?: Yes *Have you received a flu vaccine this season?: Yes Laterality Cases: Bilateral: Other Other Surgeries: Yes: Other - *Social History Smoking Status: Never smoker Alcohol Intake: never *Occupational Status:: other Housing: house *Travel in the last 8 weeks: None Family Hx:: Hyperlip
== END ==
PROVIDERS: PCP Nurse Practitioner Family; Visit Provider Clinical Nurse Specialist Family Health
DX: M50.10 Cervical disc disorder with radiculopathy, unspecified cervical region (principal); M12.88 Other specific arthropathies, not elsewhere classified, other specified site; M25.512 Pain in left shoulder; M25.511 Pain in right shoulder
CPT/HCPCS: 99212

== ENCOUNTER 2020-05-13 11:28 | Day surgery (SDC) | payer MEDICARE, SELFPAY ==
[2020-05-13 11:47] VITALS: BP 139/84; PULSE 66; RESP 20; TEMP 36.9; O2SAT 97
--- NOTE | 2020-05-13 11:57 | PC.NURSE ---
Procedure cancelled due to bronchitis infection and pt on antiboiotics. Pt to return in 2 weeks for procedure
== END 2020-05-13 11:59 | disposition home or self-care (01) ==
LOC: SC.PAINP 11:30
PROVIDERS: PCP Nurse Practitioner Family; Visit Provider Anesthesiology
DX: I10 Essential (primary) hypertension (principal); J45.909 Unspecified asthma, uncomplicated; Z53.09 Procedure and treatment not carried out because of other contraindication; M25.511 Pain in right shoulder; M25.512 Pain in left shoulder; Z88.5 Allergy status to narcotic agent; Z79.899 Other long term (current) drug therapy
CPT/HCPCS: 20610

== ENCOUNTER → 2020-05-30 10:24 | Outpatient (POV) | payer MEDICARE, SELFPAY ==
[2020-05-30 10:57] VITALS: BP 125/78; PULSE 79; RESP 18; O2SAT 98; BMI 25.0
--- NOTE | 2020-05-30 11:39 | HMH.PAINSOAP ---
[facility] Pain Management SOAP Note Subjective:: Patient is a pleasant 70-year-old white male who presents today for medication refills. He is being treated for neck and bilateral arm pain. He is got neck pain secondary to postlaminectomy syndrome cervical spine. Patient currently on [place] 10 mg 1 p.o. 4 times daily he states it does well for him. He is also on gabapentin 800 mg 1 tab p.o. 4 times daily. [facility] #[id number] reviewed and appropriate. Patient's urine drug screens have been appropriate. Patient would like to move forward by with bilateral subacromial bursa injections. Patient has had shoulder pain for quite some time. He rates his pain today a 5 out of 10. ROS General: no recent weight change, no fever, no sleep disturbances Respiratory: no cough, no shortness of air, no recurring pulmonary infections Cardiovascular/Peripheral Vascular: No chest pain, No palpitations, no edema, no shortness of breath. Gastrointestinal: no new onset incontinence, normal bowel movements reported Genitourinary: no new onset incontinence Musculoskeletal: Neck pain, shoulder pain Psychiatric: normal mood/ affect Neurological: [denies new onset weakness in extremities], [denies new onset balance issues] Objective:: Physical Exam General: Alert and oriented x3, no acute distress, pleasant and cooperative, [on room air] Lungs: Resps E/U, Symmetrical chest expansion, Eyes: PERRL Musculoskeletal: Flexion and extension of cervical spine somewhat guarded secondary to pain, deep tendon reflexes normal, strength in upper and lower extremities [5/5], [abnormal gait noted] screen point tenderness over bilateral subacromial bursa Neurological: speech clear, children's court magistrate equal, no gross sensory deficits Assessment:: Bursitis bilateral shoulders, degenerative disc disease cervical spine with cervical radiculopathy and facet arthropathy Plan:: We will plan bilateral subacromial bursa injections for the patient. We will also refill his [place] 10 mg 1 tab p.o. 3 times daily and gabapentin 800 mg 1 tab p.o. 4 times daily. 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 We will see him back in 3 months reassess his symptoms at that time he has been instructed to call the office if he has any issues prior to his next appointment. Dr. Gongora has reviewed this note and agrees with this plan of care. This note was dictated using voice recognition software and may contain errors or omissions Patient has been prescribed a controlled substance after being counseled on the medication, medication safety, and possible side effects. MARIA DE JESUS report has been obtained and reviewed prior to prescription and found to be appropriate. Opioid contract was reviewed and signed by the patient, and that they have agreed to all of the terms set forth by our compliance program. [facility] History I have reviewed the patient's past medical history: Yes Medical History: Reports:: Hypertension Denies:: Cancer, Diabetes Mellitus Type 1, Diabetes Mellitus Type 2, MRSA *Have you ever received a pneumonia vaccine?: Yes *Have you received a flu vaccine this season?: Yes Laterality Cases: Bilateral: Other Other Surgeries: Yes: Other Amputation: No Fractures: No - *Social History Smoking Status: Never smoker Alcohol Intake: never *Occupational Status:: other Housing: house *Travel in the last 8 weeks: None Family Hx:: No significant family history
== END ==
PROVIDERS: PCP Nurse Practitioner Family; Visit Provider Clinical Nurse Specialist Family Health
DX: M75.52 Bursitis of left shoulder (principal); M75.51 Bursitis of right shoulder; M50.10 Cervical disc disorder with radiculopathy, unspecified cervical region; M47.892 Other spondylosis, cervical region
CPT/HCPCS: 99212

== ENCOUNTER 2020-06-17 09:37 | Day surgery (SDC) | payer MEDICARE, SELFPAY ==
[2020-06-17 09:42] VITALS: BP 150/81; PULSE 60; RESP 18; TEMP 36.4; O2SAT 98; BMI 23.6
--- NOTE | 2020-06-17 10:17 | P.PCN_ITS ---
- Procedure Date: 06/17/20 Time: 10:17 Anesthesiologist:: Alejandro Gongora MD Complications:: None Pre-procedure Diagnosis:: Bilateral shoulder pain with subacromial bursitis and degenerative osteoarthritis both shoulders Post-procedure Diagnosis:: Same Indications for Procedure:: The patient is a pleasant 70-year-old white male who we have been treating for neck pain with cervical radicular symptoms and postlaminectomy syndrome of the cervical spine. He also has bilateral shoulder pain with subacromial bursitis and degenerative osteoarthritis both shoulders. We will do a bilateral ojeda bacromial bursa injections as well as suprascapular nerve blocks today and intra-articular shoulder injections bilaterally Procedure Details:: Bilateral shoulder injection with suprascapular nerve block Informed consent was obtained and the risk and benefits of the procedure were explained to the patient. Patient was taken to the procedure room. Both shoulders were prepped using ChloraPrep. 25-gauge needle was used to inject 10 mL bupivacaine 0.25% and Depo-Medrol 40 mg into the suprascapular nerve, subacromial bursa and intra-articular joint of each shoulders. We used a total of 80 mg Depo-Medrol for both shoulders. Patient tolerated procedure well with no complication. Plan and Disposition:: We will follow-up with him in 2 weeks. Will reevaluate symptoms at that time.
[2020-06-17 10:20] VITALS: BP 145/80; PULSE 65; RESP 20; O2SAT 98
[2020-06-17 10:25] VITALS: BP 158/87; PULSE 70; RESP 20; O2SAT 98
[2020-06-17 10:38] VITALS: BP 154/88; PULSE 62; RESP 18; O2SAT 98
== END 2020-06-17 10:38 | disposition home or self-care (01) ==
LOC: SC.PAINP 09:39
PROVIDERS: PCP Nurse Practitioner Family; Visit Provider Anesthesiology
DX: M19.012 Primary osteoarthritis, left shoulder (principal); M19.011 Primary osteoarthritis, right shoulder; M75.51 Bursitis of right shoulder; M75.52 Bursitis of left shoulder
CPT/HCPCS: 20610

== ENCOUNTER → 2020-07-05 11:41 | Outpatient (CLI) | payer MEDICARE, SELFPAY ==
[2020-07-06 08:27] LABS: Covid-19 Nasal PCR Sendout Lex NOT DETECTED
== END ==
PROVIDERS: PCP Nurse Practitioner Family; Visit Provider Nurse Practitioner Family
DX: Z03.818 Encounter for observation for suspected exposure to other biological agents ruled out (principal)
CPT/HCPCS: U0004

== ENCOUNTER → 2020-07-11 11:52 | Outpatient (POV) | payer MEDICARE, SELFPAY ==
[2020-07-11 12:03] VITALS: BP 128/78; PULSE 74; RESP 18; O2SAT 98; BMI 23.8
--- NOTE | 2020-07-11 12:39 | HMH.PAINSOAP ---
[facility] Pain Management SOAP Note Subjective:: Patient is a pleasant 70-year-old white male who presents today for follow-up after bilateral shoulder injections. Patient states his right shoulder is doing quite well his left shoulder gives him some issue. He states it is improved since his last injection. He rates his pain a 5 out of 10 today. He is also being medically managed for low back and neck pain. He is on [place] 10 mg 1 p.o. 4 times daily. He denies any side effects to this. [facility] #[id number] reviewed and appropriate. He is in no need of medication refills at this time. His morphine equivalent is 40. ROS General: no recent weight change, no fever, no sleep disturbances Respiratory: no cough, no shortness of air, no recurring pulmonary infections Cardiovascular/Peripheral Vascular: No chest pain, No palpitations, no edema, no shortness of breath. Gastrointestinal: no new onset incontinence, normal bowel movements reported Genitourinary: no new onset incontinence Musculoskeletal: Back pain, leg pain, shoulder pain, neck pain, Psychiatric: normal mood/ affect Neurological: [denies new onset weakness in extremities], [denies new onset balance issues] Objective:: Physical Exam General: Alert and oriented x3, no acute distress, pleasant and cooperative, [on room air] Lungs: Resps E/U, Symmetrical chest expansion, Eyes: PERRL Musculoskeletal: Flexion and extension of cervical spine somewhat guarded secondary to pain, deep tendon reflexes normal, strength in upper and lower extremities [5/5], [abnormal gait noted] Neurological: speech clear, monkey breeder equal, no gross sensory deficits Assessment:: Shoulder pain, subacromial bursitis, osteoarthritis bilateral shoulders, degenerative disc disease lumbar spine and lumbar radiculopathy, degenerative disc disease cervical spine Plan:: We will see the patient back for his next medication refill. Patient's been instructed to call the office if he has any issues prior to his next appointment. Dr. Gongora has reviewed this note and agrees with this plan of care. This note was dictated using voice recognition software and may contain errors or omissions [facility] History I have reviewed the patient's past medical history: Yes Medical History: Reports:: Hyperlipidemia, Hypertension Denies:: Cancer, Diabetes Mellitus Type 1, Diabetes Mellitus Type 2, MRSA, Seizures *Have you ever received a pneumonia vaccine?: Yes *Have you received a flu vaccine this season?: Yes Laterality Cases: Bilateral: Other Other Surgeries: Yes: Other Amputation: No Fractures: No - *Social History Smoking Status: Never smoker Alcohol Intake: never *Occupational Status:: other Housing: house *Travel in the last 8 weeks: None Family Hx:: No significant family history
== END ==
PROVIDERS: PCP Nurse Practitioner Family; Visit Provider Clinical Nurse Specialist Family Health
DX: M51.16 Intervertebral disc disorders with radiculopathy, lumbar region (principal); M50.30 Other cervical disc degeneration, unspecified cervical region; M75.50 Bursitis of unspecified shoulder; M19.019 Primary osteoarthritis, unspecified shoulder
CPT/HCPCS: 99212

== ENCOUNTER → 2020-08-08 12:20 | Outpatient (CLI) | payer MEDICARE, SELFPAY ==
[2020-08-08 12:41] LABS: Basophils # 0.1 K/mm3 (0-0.2); Basophils % 0.6 % (0.1-2.0); Eosinophils # 0.1 K/mm3 (0.0-0.4); Eosinophils % 0.6 % (0.1-12.0); Hematocrit 42.2 % (42.0-52.0); Hemoglobin 13.5 g/dL (14.1-18.0); Lymphocytes # 1.9 K/mm3 (0.7-4.5); Lymphocytes % 24.9 % (10-50); Mean Corpuscular Hemoglobin 32.6 pg (27.0-31.2); Mean Platelet Volume 6.7 fl (7.4-10.4); Monocytes # 0.5 K/mm3 (0.1-1.0); Monocytes % 6.8 % (1.7-9.3); Neutrophils # 5.2 K/mm3 (1.8-7.8); Neutrophils % 67.1 % (37.0-80.0); Platelet Count 331 K/mm3 (142-424); Red Blood Count 4.14 M/mm3 (4.60-6.20); Red Cell Distribution Width 12.5 % (11.5-17.5); White Blood Count 7.8 K/mm3 (4.8-10.8)
[2020-08-08 12:46] LABS: Chloride 103 mmol/L (98-107); Potassium 4.6 mmoL/L (3.5-5.1); Sodium 140 mmol/L (136-145)
[2020-08-08 12:48] LABS: Blood Urea Nitrogen 15 mg/dl (9-20); Estimated Glomerular Filt Rate 96 ml/min (>60); GFR (African American) 116 ML/MIN (>60)
[2020-08-08 12:49] LABS: Alanine Aminotransferase 15 U/L (12-78); Albumin Level 4.3 g/dl (3.5-5.0); Albumin/Globulin Ratio 1.4 (1.1-1.8); Alkaline Phosphatase 72 U/L (38-126); Anion Gap 10.6 mEq/L (5-15); Aspartate Amino Transferase 29 U/L (17-59); Bilirubin,Total 0.5 mg/dl (0.2-1.3); Calcium 9.6 mg/dl (8.4-10.2); Carbon Dioxide 31 mmol/L (22.0-30.0); Chol/HDL Ratio 3.7 (1-3.5); Cholesterol 194 mg/dl (140-200); Glucose 120 mg/dl (74-100); HDL Cholesterol 52 mg/dl (40-60); Total Protein,Serum 7.3 g/dl (6.3-8.2); Triglycerides 83 mg/dl (30-150); VLDL Cholesterol 17 mg/dL (0-40)
[2020-08-08 12:55] LABS: C-Reactive Protein 0.6 mg/L (0-4)
[2020-08-08 13:00] LABS: Direct LDL Cholesterol 111.12 mg/dL (100-129)
[2020-08-08 13:05] LABS: Troponin I < 0.01 ng/ml (0.00-0.034)
[2020-08-11 10:16] LABS: Magnesium,RBC 4.7 mg/dL (4.2-6.8)
== END ==
PROVIDERS: Visit Provider Nurse Practitioner Family
DX: R07.9 Chest pain, unspecified (principal)
CPT/HCPCS: 36415; 80053; 80061; 83735; 84484; 85025; 86140

== ENCOUNTER → 2020-08-16 06:34 | Outpatient (CLI) | payer MEDICARE, SELFPAY ==
--- NOTE | 2020-08-16 06:34 | CA_ITS ---
APPROVED REPORT EXAM: Comprehensive 2D, Doppler, and color-flow Echocardiogram Lemon Picker: Lauren Ovalles CRT Ht: 5 ft 8 in Wt: 156lbs BSA: 1.84 BP: 149/76 mmHg Indications: Chest Pain, Hyperlipidemia, Hypertension/HDD,gerd 2D Dimensions LVOT 2.03 cm (M/F) 1.5-2.5 M-Mode Dimensions RVDd 3.44 cm (0.9-2.6) LA Diam 3.96 cm (1.9-4.0) LVDd 4.54 cm (3.5-5.7) Ao Diam 2.69 cm (2.0-3.7) LVDs 2.72 cm (3.5-5.7) IVSd 1.22 cm (0.6-1.1) PWd 0.81 cm (0.6-1.1) EF (Teich) 70.90% FS 40.10% EDV (Teich) 94.40 mL ESV (Teich) 27.50 mL LV Diastology E Decel Time 150.00 (160-240 msec) E/A Ratio 0.93 MED E' 6.70 (< 7 cm/sec) E'/MED E' Ratio 10.30 (>14) LAT E' 10.50 (<10 cm/sec) E/LAT E' Ratio 6.57 (>14) Aortic Valve AO Peak GR. 6.00 mmHg Mitral Valve MV E Max Jean. 69.00 (40-130 cm/s) MV A Velocity 74.00 (40-130 cm/s) E/A Ratio 0.93 MV Decel. Time 150.00 (160-240 ms) MV PHT 44.00 ms Pulmonary Valve PV Peak Velocity 98.00 (50-150 cm/s) Tricuspid Valve TR P. Velocity 235.00 cm/s RAP Estimate 10.00 mmHg RVSP 32.00 mmHg Left Ventricle Left atrium is mildly enlarged, left ventricle is normal size, mild concentric left ventricular hypertrophy, visually estimated ejection fraction 55% with no regional wall motion abnormality, grade 1 diastolic dysfunction seen without tissue Doppler evidence of raise left atrial pressure. Right Ventricle Right atrium and right ventricle are normal size and contractility. Aortic Valve Aortic valve is minimally thickened and fibrosed, there is no aortic stenosis or aortic insufficiency. Mitral Valve Mitral valve is grossly normal, there is mild mitral regurgitation. Tricuspid Valve Tricuspid valve grossly normal, there is mild tricuspid regurgitation, tricuspid regurgitation jet velocity is inadequate for calculation of the right ventricular systolic pressure. Pulmonic Valve Pulmonic valve is poorly visualized. Great Vessels Aortic root is normal size. Pericardium No significant pericardial effusion noted. Conclusion 1. Mildly low left atrium, normal left ventricular size, mild concentric left ventricular hypertrophy, visually estimated ejection fraction 55% with no regional wall motion abnormality, grade 1 diastolic dysfunction seen without tissue Doppler evidence of raise left atrial pressure. 2. Mild mitral and tricuspid regurgitation. 3. No significant pericardial effusion noted. Electronically signed by : Dustin Sim, 08/16/2020 19:30:18
--- NOTE | 2020-08-16 06:34 | CA_ITS ---
APPROVED REPORT Exam: Pharmacologic Technologist: Sue Oneil Ht: 5 ft 8 in Wt: 155 lbs BSA: 1.83 m2 HR: 56 bpm BP: 147/78 mmHg Indications: Shortness of Air, chest pain Medical History Medications: Omeprazole,,,,, Simvastatin,,,,, Gabapentin,,,,, Lisinopril/HCTZ,,,,, Montelukast,,,,, Potassium,,,,, Stress Test Details Test: LEXISCAN HR Resting HR: 56 bpm Max Heart Rate (APMHR): 152 bpm Max HR Achieved: 83 bpm Target HR (85% APMHR): 129 bpm % of APMHR: 54 Recovery HR: 61 bpm BP Resting BP: 147.0/78.0 mmHg Max BP: 154.0/82.0 mmHg Recovery BP: 148.0/75.0 mmHg ECG Clinical Exercise duration: 04:07 min Highest Stage Achieved: Exercise capacity: 1.0 METs Stress ECG Conclusion Resting ECG: Sinus bradycardia, PACs, NS ST-T abnormalities inferiorly. Symptoms: Malaise, brief shortness of air. Arrhythmias/Ectopy: Occasional PAC ST-T Changes: No significant changes. Conclusion: Unremarkable Lexiscan stress. Myoview images reported separately. Test Summary REST . . . . . . . Resting REST 03:32 . . 56 . 147/ 78 . . Stage 1 . . . . . . . Myoview Injected Stage 1 01:00 . . 75 . . . . Stage 2 01:00 . . 76 . 154/ 82 . . Stage 3 01:00 . . 67 . . . . Stage 4 01:00 . . 65 . 141/ 68 . . Stage 4 01:07 . . 67 . 125/ 68 . Stop exercise at 04:07 RECOVERY 01:00 . . 64 . . . . RECOVERY 02:00 . . 77 . 137/ 64 . . RECOVERY 03:00 . . 62 . 148/ 75 . . RECOVERY 03:21 . . 73 . 148/ 75 . . Electronically signed by : Dustin Sim, 08/16/2020 17:38:11
--- NOTE | 2020-08-16 06:34 | NM_ITS ---
APPROVED REPORT Exam: Nuclear Stress Test Indication: Chest pain, SOB, HTN, High cholesterol Patient Location: Outpatient Stress Tech: Sue Oneil NM Tech:Robyn Clemente, ARRT, RT (R)(N) Ht: 5 ft 8 in Wt: 155 lbs HR: 56 bpm BP: 147/78 mmHg BSA: 1.83 m2 BMI: 23.5 History: Chest pain, SOB, HTN, High cholesterol Procedure: Patient received a 0.4 mg of intravenous Lexiscan, resting heart rate 56 bpm, resting blood pressure 147/78 mmHg, with Lexiscan maximum heart rate achived was 79 bpm which is Less than 85 % of the maximum predicted heart rate and blood pressure was 154/82 mmHg. With Lexiscan, patient denied any complaint of chest pain. Electrocardiogram Resting electrocardiogram showed sinus rhythm, with Lexiscan there is less than 1.[address] segment depression noted from the baseline EKG. The EKG portion of the Lexiscan Myoview is nondiagnostic. Cardiac Stress and Resting SPECT Images: Cardiac Stress and Resting SPECT images were obtained using technetium 99m Myoview 32.4 mCi stress and 10.05 mCi at rest. Gated SPECT for analysis of segmental wall motion and calculation of the ejection fraction also done. Prone images were also obtained. Cardiac stress and resting SPECT images show uniform myocardial activity without segmental perfusion abnormality, computer derived ejection fraction is 54% with no regional wall motion abnormality, right ventricle is normal size and contractility. Conclusion: 1. The EKG portion of the Lexiscan Myoview is nondiagnostic. 2. No scintigraphic evidence of reversible ischemia seen, computer derived ejection fraction is 54% with no regional wall motion abnormality, right ventricle is normal size and contractility. 3. Normal Lexiscan Myoview study. Electronically signed by : Dustin Sim, 08/16/2020 17:44:42
--- NOTE | 2020-08-16 08:05 | HMH.ITSHM ---
Current Home Medications as stated by this patient Refugio Jones or strategic partnership representative. []SIMVASTATIN POTASSIUM OMEPRAZOLE MONTELUKAST LISINOPRIL IBUPROFEN NORCO GABAPENTIN
== END ==
PROVIDERS: PCP Nurse Practitioner Family; Visit Provider Urology
DX: E78.5 Hyperlipidemia, unspecified (principal); I10 Essential (primary) hypertension; K21.9 Gastro-esophageal reflux disease without esophagitis; Z86.718 Personal history of other venous thrombosis and embolism; R07.9 Chest pain, unspecified; I65.23 Occlusion and stenosis of bilateral carotid arteries
CPT/HCPCS: 78452; 93017; 93306; A9502; J2785

== ENCOUNTER → 2020-09-12 09:11 | Outpatient (POV) | payer MEDICARE, SELFPAY ==
[2020-09-12 09:28] VITALS: BP 132/72; PULSE 71; RESP 18; TEMP 36.8; O2SAT 98; BMI 23.6
--- NOTE | 2020-09-12 12:39 | P.CONS_ITS ---
[facility] Pain Management SOAP Note Subjective:: Pleasant 70-year-old white male who presents today for follow-up. Patient is currently being medically managed with [place] 10 mg 1 p.o. 4 times daily. He denies side effects to this. He rates his pain a 5 out of 10. He has generalized pain along with neck and shoulder pain. [facility] #[id number] reviewed and appropriate. Patient is also on gabapentin 800 mg 1 p.o. 4 times daily. His current morphine equivalent is 40. Patient and I discussed adding ibuprofen when needed. He would like to move forward with that. Overall patient doing well ROS General: no recent weight change, no fever, no sleep disturbances Respiratory: no cough, no shortness of air, no recurring pulmonary infections Cardiovascular/Peripheral Vascular: No chest pain, No palpitations, no edema, no shortness of breath. Gastrointestinal: no new onset incontinence, normal bowel movements reported Genitourinary: no new onset incontinence Musculoskeletal: Generalized pain, back pain, leg pain, shoulder pain, neck pain Psychiatric: normal mood/ affect, Neurological: [denies new onset weakness in extremities], [denies new onset balance issues] Objective:: Physical Exam General: Alert and oriented x3, no acute distress, pleasant and cooperative, [on room air] Lungs: Resps E/U, Symmetrical chest expansion, Eyes: PERRL Musculoskeletal: Flexion and extension of cervical and lumbar spine somewhat guarded secondary to pain, deep tendon reflexes normal, strength in upper and lower extremities [5/5], [abnormal gait noted] Neurological: speech clear, 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 4 times daily and his gabapentin 800 mg 1 p.o. 4 times daily. Patient does not need prescriptions at this time. We will follow-up with him in 3 months reassess his symptoms at that time he has been instructed to call the office if he has any issues prior to his next appointment. Dr. Gongora has reviewed this note and agrees with this plan of care. This note was dictated using voice recognition software and may contain errors or omissions [facility] History I have reviewed the patient's past medical history: Yes Medical History: Reports:: Asthma, Deep Vein Thrombosis, Gastroesophageal Reflux Disease(GERD), Hyperlipidemia, Hypertension Denies:: Cancer, Diabetes Mellitus Type 1, Diabetes Mellitus Type 2, MRSA, Seizures *Have you ever received a pneumonia vaccine?: Yes *Have you received a flu vaccine this season?: Yes Laterality Cases: Bilateral: Other Other Surgeries: Yes: No Previous Surgery, Other Amputation: No Fractures: No - *Social History Smoking Status: Never smoker Alcohol Intake: never Substance Use Type: denies use *Occupational Status:: other Housing: house *Travel in the last 8 weeks: None Family Hx:: No significant family history
== END ==
PROVIDERS: PCP Nurse Practitioner Family; Visit Provider Clinical Nurse Specialist Family Health
DX: M50.10 Cervical disc disorder with radiculopathy, unspecified cervical region (principal); M51.16 Intervertebral disc disorders with radiculopathy, lumbar region; M25.519 Pain in unspecified shoulder
CPT/HCPCS: 99212

== ENCOUNTER 2020-11-21 16:35 | Emergency (ER) | payer MEDICARE, SELFPAY ==
[2020-11-21 16:45] VITALS: BP 132/78; PULSE 67; RESP 20; TEMP 36.4; O2SAT 98; BMI 26.6
--- NOTE | 2020-11-21 17:06 | HMH.EDUTC ---
[facility] [place] Clinical Impression: Exposure to COVID-19 virus Sinusitis Qualifiers: Sinusitis location: unspecified location Chronicity: acute Recurrence: non-recurrent Qualified Code(s): J01.90 - Acute sinusitis, unspecified Disposition: Home, Self-Care Condition on Discharge: Good Instructions: DI for Sinusitis, Preventing the Spread of Coronavirus Discharge Instructions Additional Instructions: Drink plenty of fluids. Take tylenol for pain or fever. Return if you begin to have difficulty breathing. Follow up with your regular doctor. GO TO THE ER FOR ANY WORSENING SYMPTOMS Prescriptions: predniSONE [Deltasone 10mg tablet] 10 mg PO BID 4 Days #8 tab Transmission Status: Received by [facility] Benzonatate [Tessalon Perle 100mg Cap] 100 mg PO TIDP PRN #30 cap PRN Reason: Cough Transmission Status: Received by [facility] Azithromycin [Z-Jeff 250mg Tab*] 250 mg PO UD DOSE PK #6 tab Transmission Status: Received by [facility] Referrals: Senia Espinoza APRN [Primary Care Provider] - Time of Disposition: 17:27 Medical Decision Making - Medical Records Medical records reviewed: No: I reviewed the patient's medical records. - Siva Inquiry Pt receiving controlled substance: No Vital Signs: 11/21/20 16:45 11/21/20 17:14 Temperature 97.6 F 97.6 F Temperature Source Oral Pulse Rate 67 Pulse Rate [Right Brachial] 67 Respiratory Rate 20 20 Blood Pressure 132/78 Blood Pressure [Right Arm] 132/78 Blood Pressure Mean [Right Arm] 96 Blood Pressure Source [Right Arm] Automatic Cuff Blood Pressure Position [Right Arm] Sitting 02 Sat by Pulse Oximetry 98 Oxygen Delivery Method Room Air Orders (Tests/Meds): ORDERS Category Date Time Status Covid-19 Nasal PCR Sendout P&C Routine Lab 11/21/20 17:00 Received [facility] [place] - General Stated complaint: head congestion,stomach Time Seen by Provider: 11/21/20 17:06 - History of Present Illness Provider Complaint: He states that he has been having sinus congestion for the past 2 weeks. He finished amoxicillin that was prescribed by his doctor about 2 weeks ago. Since then he has became congested again. He denies any chest congestion, chest pain and fever. - Related Data Home Medications Medication Instructions Recorded Confirmed Gabapentin 800 mg PO TID 07/31/19 08/30/20 Lisinopril/Hydrochlorothiazide 1 tab PO DAILY 07/31/19 08/30/20 [Lisinopril-Hctz 20-25 mg Tab] Montelukast Sodium [Singulair 10mg 10 mg PO PM 07/31/19 08/30/20 tablet] Omeprazole [Omeprazole 40mg 40 mg PO DAILY 07/31/19 08/30/20 Capsule] Potassium Chloride 20 meq PO DAILY 07/31/19 08/30/20 Simvastatin 20 mg PO HS 07/31/19 08/30/20 Previous Rx's Medication Instructions Recorded Ibuprofen [Ibuprofen 600mg 600 mg PO Q6HP PRN #30 tab 04/17/20 Tablet] Hydrocodone/Acetaminophen [[place] 1 tab PO QID #120 tab 08/26/20 10-325 Tablet] Hydrocodone/Acetaminophen [[place] 1 tab PO QID #120 tab 10/06/20 10-325 Tablet] Gabapentin [Neurontin 800mg Tab] 800 mg PO QID #120 tab 11/03/20 Hydrocodone/Acetaminophen [[place] 1 tab PO QID #120 tab 11/03/20 10-325 Tablet] Azithromycin [Z-Jeff 250mg Tab*] 250 mg PO UD DOSE PK #6 tab 11/21/20 Benzonatate [Tessalon Perle 100mg 100 mg PO TIDP PRN #30 cap 11/21/20 Cap] predniSONE [Deltasone 10mg tablet] 10 mg PO BID 4 Days #8 tab 11/21/20 Allergies Allergy/AdvReac Type Severity Reaction Status Date / Time acetaminophen [From PERCOCET] Allergy Severe S-SWELLS-OR Verified 08/30/20 09:57 AL/THROAT oxycodone [From PERCOCET] Allergy Severe S-SWELLS-OR Verified 08/30/20 09:57 AL/THROAT [facility] History - Hepatitis A Screen Attestation statement:: This patient has been screened for Hepatitis A risk factors. I have reviewed the patient's past medical history: Yes Medical History: Reports:: Asthma, Deep Vein Thrombosis, Gastroesophageal Reflux Disease([place]
[2020-11-21 17:14] VITALS: BP 132/78; PULSE 67; RESP 20; TEMP 36.4; O2SAT 98
[2020-11-23 11:44] LABS: Covid-19 Nasal PCR Sendout P&C Negative
== END 2020-11-21 17:34 | disposition home or self-care (01) ==
PROVIDERS: Emergency Provider Nurse Practitioner Family; PCP Nurse Practitioner Family
DX: Z20.822 Contact with and (suspected) exposure to COVID-19 (principal); J01.90 Acute sinusitis, unspecified; I10 Essential (primary) hypertension; E78.5 Hyperlipidemia, unspecified; K21.9 Gastro-esophageal reflux disease without esophagitis; Z79.899 Other long term (current) drug therapy
CPT/HCPCS: G0463; 99202; U0004

== ENCOUNTER → 2020-12-12 09:44 | Outpatient (POV) | payer MEDICARE, SELFPAY ==
--- NOTE | 2020-12-12 10:56 | HMH.PAINSOAP ---
[facility] Pain Management SOAP Note Subjective:: Patient is a pleasant 70-year-old white male who presents today for follow-up. He is currently being medically managed with [place] 10 mg 1 p.o. 4 times daily and gabapentin 800 mg 1 p.o. 4 times daily he rates his pain today a 5 out of 10 overall doing well. Maria De Jesus reviewed through [employer] system. Patient is appropriate. Overall patient doing well denies any side effects his medication drug screens have been appropriate. ROS General: no recent weight change, no fever, no sleep disturbances Respiratory: no cough, no shortness of air, no recurring pulmonary infections Cardiovascular/Peripheral Vascular: No chest pain, No palpitations, no edema, no shortness of breath. Gastrointestinal: no new onset incontinence, normal bowel movements reported Genitourinary: no new onset incontinence Musculoskeletal: Back pain, leg pain Psychiatric: normal mood/ affect Neurological: [denies new onset weakness in extremities], [denies new onset balance issues] Objective:: Physical Exam General: Alert and oriented x3, no acute distress, pleasant and cooperative, [on room air] Lungs: Resps E/U, Symmetrical chest expansion, Eyes: PERRL Musculoskeletal: Flexion and extension of lumbar spine somewhat guarded secondary to pain, deep tendon reflexes normal, strength in upper and lower extremities [5/5], slightly antalgic gait noted Neurological: speech clear, gauge maker equal, no gross sensory deficits Assessment:: Degenerative disc disease lumbar spine lumbar radiculopathy, degenerative disc disease cervical spine cervical radiculopathy, low back pain, neck pain Plan:: Patient is not due refills at this time however we will continue his [place] 10 mg 1 p.o. 4 times daily and gabapentin 800 mg 1 p.o. 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 Patient's been instructed to call the office if he has any issues prior to his next appointment. Patient has been prescribed a controlled substance after being counseled on the medication, medication safety, and possible side effects. MARIA DE JESUS report has been obtained and reviewed prior to prescription and found to be appropriate. Opioid contract was reviewed and signed by the patient, and that they have agreed to all of the terms set forth by our compliance program. Dr. Gongora has reviewed this note and agrees with this plan of care. This note was dictated using voice recognition software and may contain errors or omissions [facility] History I have reviewed the patient's past medical history: Yes Medical History: Reports:: Asthma, Deep Vein Thrombosis, Gastroesophageal Reflux Disease(GERD), Hyperlipidemia, Hypertension Denies:: Cancer, Diabetes Mellitus Type 1, Diabetes Mellitus Type 2, MRSA, Seizures *Have you ever received a pneumonia vaccine?: Yes *Have you received a flu vaccine this season?: Yes Laterality Cases: Bilateral: Other Other Surgeries: Yes: No Previous Surgery, Other Amputation: No Fractures: No - *Social History Smoking Status: Never smoker Alcohol Intake: never Substance Use Type: denies use *Occupational Status:: other Housing: house *Travel in the last 8 weeks: None Family Hx:: No significant family history
[2020-12-12 10:57] VITALS: BP 122/74; PULSE 74; RESP 18; TEMP 36.8; O2SAT 98; BMI 25.0
== END ==
LOC: SC.PAIN 09:44
PROVIDERS: PCP Nurse Practitioner Family; Visit Provider Clinical Nurse Specialist Family Health
DX: M51.16 Intervertebral disc disorders with radiculopathy, lumbar region (principal); M50.10 Cervical disc disorder with radiculopathy, unspecified cervical region
CPT/HCPCS: 99212; G0463

== ENCOUNTER 2021-02-20 15:28 | Emergency (ER) | payer MEDICARE, SELFPAY ==
[2021-02-20 15:48] VITALS: BP 141/86; PULSE 66; RESP 19; TEMP 36.6; O2SAT 97; BMI 24.3
--- NOTE | 2021-02-20 16:32 | HMH.EDUTC ---
[facility] [place] Clinical Impression: Bronchitis Sinusitis Qualifiers: Sinusitis location: unspecified location Chronicity: unspecified Qualified Code(s): J32.9 - Chronic sinusitis, unspecified Disposition: Home, Self-Care Condition on Discharge: Good Instructions: Sinusitis, Acute Bronchitis, DI for Sinusitis, DI for Acute Bronchitis Additional Instructions: ? Start antibiotic today. Be sure to complete entire prescription even if feeling better ? Monitor temp. Tylenol every 4 hours as needed and / or ibuprofen every 6 hours as needed ( As long as your primary care physician has told you that it ok to take both. For fever/aches/pains ER if no less than 101 despite Tylenol or Motrin ? Humidifier/vaporizer or hot steamy shower ? Inhaler every 4-6 hours as needed like we discussed. If unsure how to use it, ask pharmacist to demonstrate how. Should help open airways and improve cough, wheezing, and shortness of breath ? Mucinex during the day for your cough and cough suppressant only at night. Be sure to drink lots of water. Insurance may not cover a prescriptions for mucinex. Might be cheaper to get 400mg tablets and take 2 tablet in the morning, mid-day and evening with lots of water. *Tessalon Perles will not cause drowsiness but use at bedtime to help stop cough so that you may get some rest. *Start steroid today. Helps with inflammation therefore, cough and wheezing. Follow directions on the package. Reviewed side effects. Patient reports taking them before. Follow up IMMEDIATELY for new or worsening of symptoms OR no noticeable improvement over the next 48-72 hours. 911 immediately for any life threatening symptoms such as chest pain or difficulty breathing Prescriptions: Benzonatate [Tessalon Perle 100mg Cap*] 100 mg PO Q8HP PRN #30 cap PRN Reason: Cough Transmission Status: Pending to [facility] predniSONE [Prednisone 5mg Tab Dose-Pack] 5 mg PO UD DOSE PK #21 pack Transmission Status: Pending to [facility] Azithromycin [Z-Jeff 250mg Tab] 250 mg PO DIRECTED #6 tab Transmission Status: Pending to [facility] Referrals: Senia Espinoza APRN [Primary Care Provider] - As needed Time of Disposition: 16:40 Medical Decision Making - Siva Inquiry Pt receiving controlled substance: No Siva was queried for this patient: No Vital Signs: 02/20/21 15:48 Temperature 97.8 F Temperature Source Oral Pulse Rate [Right Brachial] 66 Respiratory Rate 19 Blood Pressure [Right Arm] 141/86 H Blood Pressure Mean [Right Arm] 104 Blood Pressure Source [Right Arm] Automatic Cuff Blood Pressure Position [Right Arm] Sitting 02 Sat by Pulse Oximetry 97 Oxygen Delivery Method Room Air [facility] [place] - General Stated complaint: Head congestion, weak Time Seen by Provider: 02/20/21 16:32 Mode of Arrival: Ambulatory Source of Information: Patient Limitations: No Limitations Description of Symptoms (Recalled from Triage Doc. by RN): PATIENT REPORTS COUGH, CONGESTION X1 WEEK. HEENT Symptoms (Recalled from RN notes): No Resp Symptoms (Recalled from RN notes): Yes Skin Symptoms (Recalled from RN notes): No MS Symptoms (Recalled from RN notes): No Functional Status (Recalled from RN notes): WNL - History of Present Illness Provider Complaint: Patient states that he gets bronchitis around this time every year State that they cut grass last week and his allergies started State that since he feels like he is getting bronchititis States that he has been having sinus pain and pressure and feeling of drainage in the back of his throat and feels like it is trying to move into his chest States that he wanted to come in and get checked - Related Data Home Medications Medication Instructions Recorded Confirmed Gabapentin 800 mg PO TID 07/31/19 08/30/20 Lisinopril/Hydrochlorothiazide 1 tab PO DAILY 07/31/19 08/30/20 [Lisinopril-Hctz 20-25 mg Tab] Montelukast Sodium [Singulair 10mg 10 mg PO PM 07/31/19 08/30/20 tabl
[2021-02-20 16:45] VITALS: BP 141/86; PULSE 66; RESP 19; TEMP 36.6; O2SAT 97
== END 2021-02-20 16:52 | disposition home or self-care (01) ==
PROVIDERS: Emergency Provider Nurse Practitioner; PCP Nurse Practitioner Family
DX: J20.9 Acute bronchitis, unspecified (principal); J32.9 Chronic sinusitis, unspecified; I10 Essential (primary) hypertension; K21.9 Gastro-esophageal reflux disease without esophagitis; E78.5 Hyperlipidemia, unspecified
CPT/HCPCS: G0463; 99202

== ENCOUNTER → 2021-03-09 09:50 | Outpatient (POV) | payer MEDICARE, SELFPAY ==
[2021-03-09 10:28] VITALS: BP 141/71; PULSE 65; RESP 18; O2SAT 98; BMI 24.6
--- NOTE | 2021-03-09 15:27 | HMH.PAINSOAP ---
[facility] Pain Management SOAP Note Subjective:: Patient is a pleasant 71-year-old white male who presents today for follow-up he is currently being medically managed with [place] 10 mg 1 p.o. 4 times daily and gabapentin 800 mg 1 p.o. 4 times daily he rates his pain today 6 out of 10. He wants to discuss changing medications. Patient states that they are not as effective as it used to be. [facility] #[id number] reviewed and appropriate. Patient and I discussed Lyrica. We will try this for 1 month. ROS General: no recent weight change, no fever, no sleep disturbances Respiratory: no cough, no shortness of air, no recurring pulmonary infections Cardiovascular/Peripheral Vascular: No chest pain, No palpitations, no edema, no shortness of breath. Gastrointestinal: no new onset incontinence, normal bowel movements reported Genitourinary: no new onset incontinence Musculoskeletal: Back pain, leg pain Psychiatric: normal mood/ affect, [denies depression], [denies anxiety] Neurological: [denies new onset weakness in extremities], [denies new onset balance issues] Objective:: Physical Exam General: Alert and oriented x3, no acute distress, pleasant and cooperative, [on room air] Lungs: Resps E/U, Symmetrical chest expansion, Eyes: PERRL Musculoskeletal: Flexion and extension of lumbar spine somewhat guarded secondary to pain, deep tendon reflexes normal, strength in upper and lower extremities [5/5], [abnormal gait noted] Neurological: speech clear, 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 4 times daily and change him to Lyrica 100 mg 1 p.o. 3 times daily we will see him back in 1 month reassess his symptoms at that time he has been instructed to call the office if he has any issues prior to his next appointment. Dr. Gongora has reviewed this note and agrees with this plan of care. This note was dictated using voice recognition software and may contain errors or omissions [facility] History I have reviewed the patient's past medical history: Yes Medical History: Reports:: Asthma, Deep Vein Thrombosis, Gastroesophageal Reflux Disease(GERD), Hyperlipidemia, Hypertension Denies:: Cancer, Diabetes Mellitus Type 1, Diabetes Mellitus Type 2, MRSA, Seizures *Have you ever received a pneumonia vaccine?: Yes *Have you received a flu vaccine this season?: Yes Laterality Cases: Bilateral: Other Other Surgeries: Yes: No Previous Surgery, Other Amputation: No Fractures: No - *Social History Smoking Status: Never smoker Alcohol Intake: never Substance Use Type: denies use *Occupational Status:: other Housing: house *Travel in the last 8 weeks: None Family Hx:: No significant family history
== END ==
LOC: SC.PAIN 09:50
PROVIDERS: PCP Nurse Practitioner Family; Visit Provider Clinical Nurse Specialist Family Health
DX: M51.16 Intervertebral disc disorders with radiculopathy, lumbar region (principal); M50.10 Cervical disc disorder with radiculopathy, unspecified cervical region
CPT/HCPCS: 99212; G0463

== ENCOUNTER → 2021-04-20 09:41 | Outpatient (POV) | payer MEDICARE, SELFPAY ==
[2021-04-20 09:48] VITALS: BP 118/74; PULSE 67; RESP 18; O2SAT 98; BMI 24.3
--- NOTE | 2021-04-20 11:04 | HMH.PAINSOAP ---
[facility] Pain Management SOAP Note Subjective:: Patient is a 71-year-old white male who presents today for follow-up. He is being treated for degenerative disc disease lumbar spine with lumbar radiculopathy symptoms and degenerative disc disease cervical spine with cervical radiculopathy symptoms. Patient rates his pain a 5 out of 10 today. He says that he was recently changed from gabapentin to Lyrica. Patient went from gabapentin 800 mg 1 tablet p.o. 4 times daily to Lyrica 100 mg 1 tablet p.o. 3 times daily. He says that Lyrica was giving him head fogginess and making him feel funny. As result he would like to go back to gabapentin. He and I discussed starting on the lower dose and going back up he is in agreement. Is also managed with [place] 5 mg 1 tablet p.o. 3 times daily. He denies any side effects to his [place] or to gabapentin previously he says the reason he was changed from gabapentin to Lyrica is because he felt gabapentin was no longer giving him much relief. Review of Systems General: No recent weight changes, no fever, no sleep disturbances Respiratory: No cough, no shortness of air, no recurring pulmonary infections Cardiovascular/peripheral vascular: No chest pain, no palpitations, no edema, no shortness of breath Gastrointestinal: No new onset incontinence, normal bowel movements reported Genitourinary: No new onset incontinence Musculoskeletal: Low back pain, neck pain Psychiatric: Normal mood/affect Neurological: [Denies weakness in extremities], [denies balance issues] Objective:: Physical exam General: Alert and oriented x3, no acute distress, pleasant and cooperative, [on room air] Lungs: Respirations even and unlabored, symmetrical chest expansion Eyes: PERRL Musculoskeletal: Flexion and extension of [] cervical and lumbar spine somewhat guarded secondary to pain, deep tendon reflexes normal, strength in upper and lower extremities [5/5], [abnormal gait noted] Neurological: Speech clear, 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 3 times daily. We will also continue the [place] 5 mg 1 tablet p.o. 3 times daily. We will give the patient a month medication and see him back in the clinic in a month. His Maria De Jesus was reviewed #[id number]. Morphine equivalent is 15. Drug screens have been appropriate. Risks and benefits of the medication have been explained in detail to the patient. The patient has been advised to consult with his/her primary care provider and pharmacist regarding drug-drug interaction of medications currently prescribed. Patient has been prescribed a controlled substance after being counseled on the medication, medication safety, and possible side effects. MARIA DE JESUS report has been obtained and reviewed prior to prescription and found to be appropriate. Opioid contract was reviewed and signed by the patient, and that they have agreed to all of the terms set forth by our compliance program. [facility] History I have reviewed the patient's past medical history: Yes Medical History: Reports:: Asthma, Deep Vein Thrombosis, Gastroesophageal Reflux Disease(GERD), Hyperlipidemia, Hypertension Denies:: Cancer, Diabetes Mellitus Type 1, Diabetes Mellitus Type 2, MRSA, Seizures *Have you ever received a pneumonia vaccine?: No *Have you received a flu vaccine this season?: No Laterality Cases: Bilateral: Other Other Surgeries: Yes: No Previous Surgery, Other Amputation: No Fractures: No - *Social History Smoking Status: Never smoker Alcohol Intake: never Substance Use Type: denies use *Occupational Status:: unemployed Housing: house *Travel in the last 8 weeks: None Family Hx:: No significant family history
== END ==
LOC: SC.PAIN 09:42
PROVIDERS: Visit Provider Clinical Nurse Specialist Family Health
DX: M50.10 Cervical disc disorder with radiculopathy, unspecified cervical region (principal); M51.16 Intervertebral disc disorders with radiculopathy, lumbar region
CPT/HCPCS: 99212; G0463

== ENCOUNTER → 2021-05-18 09:55 | Outpatient (POV) | payer MEDICARE, SELFPAY ==
[2021-05-18 10:14] VITALS: BP 158/84; PULSE 71; RESP 18; O2SAT 97; BMI 24.3
--- NOTE | 2021-05-18 13:04 | HMH.PAINSOAP ---
[facility] Pain Management SOAP Note Subjective:: Patient is a 71-year-old white male who presents today for medication refills and follow-up. He has been treated for degenerative disc disease lumbar spine with lumbar radiculopathy symptoms. Patient is managed with [place] 5 mg 1 tablet p.o. 4 times daily and gabapentin 300 mg 1 tablet p.o. 4 times daily. He denies any side effects. He we have previously tried giving the patient Lyrica in place of gabapentin, however, he did not tolerate Lyrica very well. As result we have gone back to gabapentin. His previous dose of gabapentin in the past was 800 mg, however, he now discuss starting at a lower dose because he had not been taking gabapentin for some time. He was in agreement. He is now on gabapentin 300 mg 1 tablet p.o. 4 times daily. We will continue him on this dose. He rates his pain a 4 out of 10 today. Review of Systems General: No recent weight changes, no fever, no sleep disturbances Respiratory: No cough, no shortness of air, no recurring pulmonary infections Cardiovascular/peripheral vascular: No chest pain, no palpitations, no edema, no shortness of breath Gastrointestinal: No new onset incontinence, normal bowel movements reported Genitourinary: No new onset incontinence Musculoskeletal: Chronic low back pain Psychiatric: Normal mood/affect Neurological: [Denies weakness in extremities], [denies balance issues] Objective:: Physical exam General: Alert and oriented x3, no acute distress, pleasant and cooperative, [on room air] Lungs: Respirations even and unlabored, symmetrical chest expansion Eyes: PERRL Musculoskeletal: Flexion and extension of [] lumbar spine somewhat guarded secondary to pain, deep tendon reflexes normal, strength in upper and lower extremities [5/5], [abnormal gait noted] Neurological: Speech clear, 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 4 times daily, gabapentin 300 mg 1 tablet p.o. 4 times daily. [facility] #[id number] has been reviewed and is appropriate. Morphine equivalent is 15. We will see the patient back in a month to reevaluate symptoms. Patient has been instructed to contact the clinic with any concerns before the next appointment. Dr. Gongora has reviewed this note and agrees with this plan of care. This note was dictated using voice recognition software and make contain errors or omissions. Patient has been prescribed a controlled substance after being counseled on the medication, medication safety, and possible side effects. MARIA DE JESUS report has been obtained and reviewed prior to prescription and found to be appropriate. Opioid contract was reviewed and signed by the patient, and that they have agreed to all of the terms set forth by our compliance program. Risks and benefits of the medication have been explained in detail to the patient. The patient has been advised to consult with his/her primary care provider and pharmacist regarding drug-drug interaction of medications currently prescribed. [facility] History I have reviewed the patient's past medical history: Yes Medical History: Reports:: Asthma, Deep Vein Thrombosis, Gastroesophageal Reflux Disease(GERD), Hyperlipidemia, Hypertension Denies:: Cancer, Diabetes Mellitus Type 1, Diabetes Mellitus Type 2, MRSA, Seizures *Have you ever received a pneumonia vaccine?: No *Have you received a flu vaccine this season?: No Laterality Cases: Bilateral: Other Other Surgeries: Yes: No Previous Surgery, Other Amputation: No Fractures: No - *Social History Smoking Status: Never smoker Alcohol Intake: never Substance Use Type: denies use *Occupational Status:: unemployed Housing: house *Travel in the last 8 weeks: None Family Hx:: No significant family history
== END ==
LOC: SC.PAIN 09:56
PROVIDERS: Visit Provider Clinical Nurse Specialist Family Health
DX: M51.16 Intervertebral disc disorders with radiculopathy, lumbar region (principal)
CPT/HCPCS: 99212; G0463

== ENCOUNTER 2021-06-03 03:01 | Emergency (ER) | payer MEDICARE, SELFPAY ==
[2021-06-03 03:17] VITALS: BP 177/76; PULSE 61; RESP 18; TEMP 36.6; O2SAT 97; BMI 22.8
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
--- NOTE | 2021-06-03 03:29 | CT_ITS ---
PROCEDURE INFORMATION: Exam: CT Lumbar Spine Without Contrast Exam date and time: 06/03/2021 3:29 AM Age: 71 years old Clinical indication: Low back pain; Prior surgery; Surgery date: 6+ months; Surgery type: Low back and left hip surgeries; Additional info: Back pain after multiple surgeries TECHNIQUE: Imaging protocol: Computed tomography images of the lumbar spine without contrast. Radiation optimization: All CT scans at this facility use at least one of these dose optimization techniques: automated exposure control; mA and/or kV adjustment per patient size (includes targeted exams where dose is matched to clinical indication); or iterative reconstruction. COMPARISON: CR Lumbar spine 04/24/2019 3:22 AM FINDINGS: Vertebrae: Posterior fusion hardware unchanged in position at L4-L5 with good osseous fusion of the vertebral bodies. Discs/Spinal canal/Neural foramina: Moderate to severe discogenic degenerative changes at L2-L3, L3-L4, and L5-S1 with posterior marginal osteophytes and degenerative changes of the facet joints results in moderate bilateral neural foraminal stenosis at these levels. Sacrum/coccyx: Postsurgical changes of the sacrum and lumbar spine with transverse sacral screw at S1 traversing the a left SI joint. Soft tissues: Unremarkable. IMPRESSION: Moderate to severe discogenic degenerative changes at L2-L3, L3-L4, and L5-S1 with posterior marginal osteophytes and degenerative changes of the facet joints results in moderate bilateral neural foraminal stenosis at these levels.
--- NOTE | 2021-06-03 03:29 | CT_ITS ---
PROCEDURE INFORMATION: Exam: CT Thoracic Spine Without Contrast Exam date and time: 06/03/2021 3:29 AM Age: 71 years old Clinical indication: Pain in thoracic spine; Without myelpathy or radiculopathy; Patient HX: Mid back pain; Additional info: Back pain after multiple surgeries TECHNIQUE: Imaging protocol: Computed tomography images of the thoracic spine without contrast. Radiation optimization: All CT scans at this facility use at least one of these dose optimization techniques: automated exposure control; mA and/or kV adjustment per patient size (includes targeted exams where dose is matched to clinical indication); or iterative reconstruction. COMPARISON: MR CERVICAL SPINE WO CON 04/21/2020 11:20 AM FINDINGS: Vertebrae: ACDF hardware seen at the upper end of collimation at the C6 level. T1-T2: No significant disc protrusion. No severe spinal canal stenosis. No significant neural foraminal narrowing. T2-T3: No significant disc protrusion. No severe spinal canal stenosis. No significant neural foraminal narrowing. T3-T4: No significant disc protrusion. No severe spinal canal stenosis. No significant neural foraminal narrowing. T4-T5: No significant disc protrusion. No severe spinal canal stenosis. No significant neural foraminal narrowing. T5-T6: T5-T6 mild discogenic degenerative changes without spinal canal or neural foraminal stenosis. T6-T7: No significant disc protrusion. No severe spinal canal stenosis. No significant neural foraminal narrowing. T7-T8: T7-T8 moderate discogenic degenerative changes without significant spinal canal or neural foraminal stenosis. T8-T9: No significant disc protrusion. No severe spinal canal stenosis. No significant neural foraminal narrowing. T9-T10: No significant disc protrusion. No severe spinal canal stenosis. No significant neural foraminal narrowing. T10-T11: No significant disc protrusion. No severe spinal canal stenosis. No significant neural foraminal narrowing. T11-T12: No significant disc protrusion. No severe spinal canal stenosis. No significant neural foraminal narrowing. T12-L1: No significant disc protrusion. No severe spinal canal stenosis. No significant neural foraminal narrowing. L5-S1: T8 through T11 mild discogenic degenerative changes without significant spinal canal or neural foraminal stenosis. Lymph nodes: Multiple calcified mediastinal nodes likely related to prior granulomatous process. IMPRESSION: Multilevel [id number] discogenic degenerative changes without significant spinal canal or neural foraminal stenosis.
--- NOTE | 2021-06-03 03:32 | HMH.EDGENADL ---
ED Disposition Clinical Impression: Acute exacerbation of chronic low back pain Disposition: Home, Self-Care Condition on Discharge: Good Instructions: DI for Low Back Pain Additional Instructions: Follow-up with your primary care doctor Saturday as well as your pain specialist. Return to the emergency department for any new or worsening symptoms. Referrals: Senia Espinoza APRN [Primary Care Provider] - - Critical Care Critical Care Time: No Attestation: On 06/03/21, the high probability of a clinically significant, sudden or life threatening deterioration of the following system(s) required my full and direct attention, intervention and personal management. The time I documented below is in addition to time spent performing reported procedures but includes the following listed in this critical care notation. Medical Decision Making - Siva Inquiry Pt receiving controlled substance: No Vital Signs: 06/03/21 03:17 06/03/21 04:55 06/03/21 05:30 Temperature 97.8 F Temperature Source Oral Pulse Rate 76 59 L Pulse Rate [Right] 61 Respiratory Rate 18 17 17 Blood Pressure 160/69 H 163/74 H Blood Pressure [Right Arm] 177/76 H Blood Pressure Mean [Right Arm] 109 Blood Pressure Source Automatic Cuff Automatic Cuff Blood Pressure Source [Right Arm] Automatic Cuff Blood Pressure Position Sitting Supine Blood Pressure Position [Right Arm] Sitting 02 Sat by Pulse Oximetry 97 99 98 Oxygen Delivery Method Room Air Room Air Room Air 06/03/21 06:13 Temperature Temperature Source Pulse Rate 87 Pulse Rate [Right] Respiratory Rate 18 Blood Pressure 143/77 H Blood Pressure [Right Arm] Blood Pressure Mean [Right Arm] Blood Pressure Source Automatic Cuff Blood Pressure Source [Right Arm] Blood Pressure Position Supine Blood Pressure Position [Right Arm] 02 Sat by Pulse Oximetry 92 L Oxygen Delivery Method Room Air - Lab Data Lab Results 06/03/21 03:07: Urine Color Yellow, Urine Appearance Clear, Urine pH 5.5, Ur Specific [place] >= 1.030, Urine Protein Negative, Urine Glucose (UA) Negative, Urine Ketones Negative, Urine Blood 1+, Urine Nitrate Negative, Urine Bilirubin Negative, Urine Urobilinogen 0.2, Ur Leukocyte Esterase Negative, Urine RBC 5-10, Amorphous Sediment Trace, Urine Mucus 2+ 06/03/21 06:00: WBC 9.5, RBC 4.16 L, Hgb 13.6 L, Hct 40.5 L, MCV 97.2 H, MCH 32.8 H, MCHC 33.7, RDW 12.8, Plt Count 361, MPV 7.4, Neut % (Auto) 74.5, Lymph % (Auto) 19.9, Rhea % (Auto) 3.9, Eos % (Auto) 1.1, Baso % (Auto) 0.6, Neut # (Auto) 7.1, Lymph # (Auto) 1.9, Rhea # (Auto) 0.4, Eos # (Auto) 0.1, Baso # (Auto) 0.1 06/03/21 06:00: Sodium 138, Potassium 3.9, Chloride 101, Carbon Dioxide 27, Anion Gap 13.9, BUN 16, Creatinine 0.70, Estimated Creat Clear 67, Estimated GFR 112, Est GFR ( Amer) 135, Glucose 124 H, Calcium 9.2, Total Bilirubin 0.7, AST 32, ALT 17, Alkaline Phosphatase 82, Total Protein 7.5, Albumin 4.5, Globulin 3.0, Albumin/Globulin Ratio 1.5 Result diagrams: 06/03/21 06:00 06/03/21 06:00 Orders (Tests/Meds): ED MEDICATIONS Discontinued Medications Generic Name Dose Route Start Last Admin Trade Name Freq PRN Reason Stop Dose Admin Ketorolac Tromethamine 30 mg 06/03/21 05:54 06/03/21 06:07 Ketorolac 30mg/Ml Vial IM 06/03/21 05:55 30 mg ONCE ONE Administration Lidocaine 1 each 06/03/21 06:05 06/03/21 06:07 Lidocaine 5% Transdermal Patch TP 06/03/21 06:06 1 each ONCE ONE Administration Medical Decision Narrative: The patient is a 71-year-old male who presents to the emergency department with acute on chronic back pain. Differential diagnosis includes pyelonephritis, nephrolithiasis, fracture, exacerbation of chronic pain, cauda equina. Very low suspicion for cauda equina as the patient has normal rectal tone on physical exam, no saddle anesthesia, no bowel or bladder incontinence. Given this plan to obtain CT T-spine, CT L-spine, CT stone, urinaly
[2021-06-03 03:53] LABS: Microscopic, Urine URINE MICROSCOPIC (MICROSCOPIC)
[2021-06-03 03:55] LABS: Appearance,Urine CLEAR (Clear); Bilirubin,Urine Negative (Negative); Blood, Urine 1+ (Negative); Color,Urine YELLOW (Yellow); Glucose,Urine (UA) Negative (Negative); Ketones,Urine Negative (Negative); Leukocyte Esterase,Urine Negative (Negative); Nitrate,Urine Negative (Negative); PH,Urine 5.5 (5.0-8.5); Protein,Urine Negative (Negative); Specific Gravity, Urine >= 1.030 (1.005-1.030); Urobilinogen,Urine 0.2 EU/dl (0.2)
[2021-06-03 03:58] LABS: Amorphous Sediment,Urine Trace /lpf; Mucus,Urine 2+ /lpf
[2021-06-03 04:55] VITALS: BP 160/69; PULSE 76; RESP 17; O2SAT 99
[2021-06-03 05:30] VITALS: BP 163/74; PULSE 59; RESP 17; O2SAT 98
[2021-06-03 06:10] LABS: Basophils # 0.1 K/mm3 (0-0.2); Basophils % 0.6 % (0.1-2.0); Eosinophils # 0.1 K/mm3 (0.0-0.4); Eosinophils % 1.1 % (0.1-12.0); Hematocrit 40.5 % (42.0-52.0); Hemoglobin 13.6 g/dL (14.1-18.0); Lymphocytes # 1.9 K/mm3 (0.7-4.5); Lymphocytes % 19.9 % (10-50); Mean Corpuscular HGB Conc 33.7 g/dL (31.8-35.4); Mean Corpuscular Hemoglobin 32.8 pg (27.0-31.2); Mean Corpuscular Volume 97.2 fl (80-94); Mean Platelet Volume 7.4 fl (7.4-10.4); Monocytes # 0.4 K/mm3 (0.1-1.0); Monocytes % 3.9 % (1.7-9.3); Neutrophils # 7.1 K/mm3 (1.8-7.8); Neutrophils % 74.5 % (37.0-80.0); Platelet Count 361 K/mm3 (142-424); Red Blood Count 4.16 M/mm3 (4.60-6.20); Red Cell Distribution Width 12.8 % (11.5-17.5); White Blood Count 9.5 K/mm3 (4.8-10.8)
[2021-06-03 06:13] VITALS: BP 143/77; PULSE 87; RESP 18; O2SAT 92
[2021-06-03 06:28] LABS: Alanine Aminotransferase 17 U/L (12-78); Albumin Level 4.5 g/dl (3.5-5.0); Albumin/Globulin Ratio 1.5 (1.1-1.8); Alkaline Phosphatase 82 U/L (38-126); Anion Gap 13.9 mEq/L (5-15); Aspartate Amino Transferase 32 U/L (17-59); Bilirubin,Total 0.7 mg/dl (0.2-1.3); Blood Urea Nitrogen 16 mg/dl (9-20); Calcium 9.2 mg/dl (8.4-10.2); Carbon Dioxide 27 mmol/L (22.0-30.0); Chloride 101 mmol/L (98-107); Creatinine Clearance Estimated 67 mL/min (50-200); Estimated Glomerular Filt Rate 112 ml/min (>60); GFR (African American) 135 ML/MIN (>60); Glucose 124 mg/dl (74-100); Potassium 3.9 mmoL/L (3.5-5.1); Sodium 138 mmol/L (136-145); Total Protein,Serum 7.5 g/dl (6.3-8.2)
[2021-06-03 06:57] VITALS: BP 143/77; PULSE 79; RESP 18; TEMP 36.6; O2SAT 98
== END 2021-06-03 06:58 | disposition home or self-care (01) ==
PROVIDERS: Emergency Provider Emergency Medicine; PCP Nurse Practitioner Family
DX: M54.5 Low back pain (principal); I10 Essential (primary) hypertension; K21.9 Gastro-esophageal reflux disease without esophagitis; E78.5 Hyperlipidemia, unspecified; J45.909 Unspecified asthma, uncomplicated
CPT/HCPCS: 72128; 72131; 74176; 80053; 81001; 85025; 99282

== ENCOUNTER → 2021-06-15 11:37 | Outpatient (POV) | payer MEDICARE, SELFPAY ==
[2021-06-15 11:45] VITALS: BP 190/83; PULSE 71; RESP 18; O2SAT 99; BMI 22.2
--- NOTE | 2021-06-15 12:31 | HMH.PAINSOAP ---
[facility] Pain Management SOAP Note Subjective:: Patient is a 71-year-old white male who presents today for follow-up. He has been treated for degenerative disc disease lumbar spine with lumbar radiculopathy symptoms. Patient is managed with [place] 10 mg 1 tablet p.o. 4 times daily as well as gabapentin 300 mg 1 tablet p.o. 3 times daily. The patient is not getting much relief with his gabapentin. He is having severe right low back pain with radiation into the right lower extremity. Patient was previously on gabapentin 800 mg 1 tablet p.o. 4 times daily. He was changed to Lyrica which did not give him relief. We have been slowly titrating the patient back up to his previous dose of gabapentin. We will increase him today to gabapentin 600 mg 1 tablet p.o. 4 times daily. We will give him 2 weeks of the medication. If he is able to tolerate the medicine, at that time we can increase him back to 800 mg 1 tablet 4 times daily. He does not have any side effects to the medicine at this time. His Maria De Jesus #[id number] has been reviewed and is appropriate. Drug screen is appropriate. Patient I also discussed possible injective therapy if he does not get relief with his gabapentin. He is in agreement. He is having numbness and tingling into his right lower extremity. Review of Systems General: No recent weight changes, no fever, no sleep disturbances Respiratory: No cough, no shortness of air, no recurring pulmonary infections Cardiovascular/peripheral vascular: No chest pain, no palpitations, no edema, no shortness of breath Gastrointestinal: No new onset incontinence, normal bowel movements reported Genitourinary: No new onset incontinence Musculoskeletal: Low back pain with radiation into right lower extremity with numbness and tingling Psychiatric: [Normal mood/affect] Neurological: [Denies weakness in extremities], [denies balance issues] Objective:: Physical exam General: Alert and oriented x3, no acute distress, pleasant and cooperative, [on room air] Lungs: Respirations even and unlabored, symmetrical chest expansion Eyes: PERRL Musculoskeletal: Flexion and extension of lumbar [spine] somewhat guarded secondary to pain, strength in upper and lower extremities [5/5], [antalgic gait noted] Neurological: 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 4 times daily and gabapentin will be increased to 600 mg 1 tablet p.o. 4 times daily for 2 weeks. We will see the patient back in the clinic in 2 weeks. If he is continuing to get relief but does need an increase, we will increase him back to his previous dose of gabapentin 800 mg 1 tablet p.o. 4 times daily. His Maria De Jesus and drug screen are appropriate. His morphine equivalent is 40. Risks and benefits of the medication have been explained in detail to the patient. The patient has been advised to consult with his/her primary care provider and pharmacist regarding drug-drug interaction of medications currently prescribed. Patient has been prescribed a controlled substance after being counseled on the medication, medication safety, and possible side effects. MARIA DE JESUS report has been obtained and reviewed prior to prescription and found to be appropriate. Opioid contract was reviewed and signed by the patient, and that they have agreed to all of the terms set forth by our compliance program. Patient has been instructed to contact the clinic with any concerns before the next appointment. Dr. Gongora has reviewed this note and agrees with this plan of care. This note was dictated using voice recognition software and make contain errors or omissions. [facility] History I have reviewed the patient's past medical history: Yes Medical History: Reports:: Asthma, Deep Vein Thrombosis, Gastroesophageal Reflux Disease(GERD), Hyperlipidemia, Hypertension
== END ==
LOC: SC.PAIN 11:38
PROVIDERS: Visit Provider Clinical Nurse Specialist Family Health
DX: M51.16 Intervertebral disc disorders with radiculopathy, lumbar region (principal)
CPT/HCPCS: 99212; G0463

== ENCOUNTER → 2021-06-20 12:34 | Outpatient (CLI) | payer MEDICARE, SELFPAY | PROVIDERS: Visit Provider Surgery | DX: Z01.812 Encounter for preprocedural laboratory examination (principal); Z20.822 Contact with and (suspected) exposure to COVID-19; Z12.11 Encounter for screening for malignant neoplasm of colon | CPT/HCPCS: U0003 ==

== ENCOUNTER 2021-06-22 06:48 | Day surgery (SDC) | payer MEDICARE, SELFPAY ==
[2021-06-19 14:38] VITALS: BMI 23.6
[2021-06-22] VITALS (7 sets, daily range): BP systolic 95–144; BP diastolic 50–70; PULSE 52–64; RESP 16–18; TEMP 36.5–36.9; O2SAT 98
--- NOTE | 2021-06-22 07:09 | P.PN_ITS ---
[facility] Anesthesia Checklist - Patient Identification Patient Identification: Arm Band, Verbal (Name & ) - Structural Data Admitted From: Home Planned Operative Procedure/s: colonoscopy Consent for Planned Operative Procedure(s) Verified: Yes Verified Documents: History and Physical - NPO Status Verified Time NPO: 00:00 - Chart Verification Results Verified: CBC, BMP - Additional verifications Patient : No Anesthesia Reactions: No Hx Blood Transfusions: No Blood Transfusion Reaction: No Cephalosporin Allergy: No Previous Colonoscopy: Yes - Cardiovascular Assessment Heart Sounds: S1 & S2 Pulse Strength: Baseline Pulse Rhythm: Regular Peripheral Edema: No - Airway Assessment C-Spine Mobility Assessed: Yes TMJ Mobility Assessed: Yes Dentition: Good Dentition - Neurological Assessment Level of Consciousness: Awake, Alert, Appropriate Hx Seizures: No Numbness or tingling in extremities: No - Anesthesia Plan Anesthesia Risk discussed: Yes Anesthesia Plan: Verified ASA Class: II Anesthesia Type: MAC [facility] History I have reviewed the patient's past medical history: Yes Medical History: Reports:: Asthma, Deep Vein Thrombosis, Gastroesophageal Reflux Disease(GERD), Hyperlipidemia, Hypertension Denies:: Cancer, Diabetes Mellitus Type 1, Diabetes Mellitus Type 2, Internal Pacemaker, MRSA, Seizures *Have you ever received a pneumonia vaccine?: Yes *Have you received a flu vaccine this season?: No Anesthesia experience/problems:: none Laterality Cases: Bilateral: Other Other Surgeries: Yes: No Previous Surgery, Colonoscopy, Other. No: Pacemaker Amputation: No Fractures: No - *Social History Last grade of school completed: 9th or 10th Smoking Status: Former smoker Alcohol Intake: never Substance Use Type: denies use *Occupational Status:: unemployed Housing: house *Travel in the last 8 weeks: None Family Hx:: No significant family history
--- NOTE | 2021-06-22 08:10 | HMH.SCOPE ---
- Procedure: Date: 06/22/21 Patient Date of :: 1950 Procedure Performed:: Esophagogastroduodenoscopy with biopsy Colonoscopy Indications:: Weight loss Screening History of sigmoid colectomy Performing Provider:: Jostin Sewell MD Referring Provider:: . Sedation:: Monitored anesthesia care Procedure:: After informed consent was obtained the patient was taken to the endoscopy suite. Sedation ensued after the patient was transferred to the left lateral decubitus position. Pulse, blood pressure, and oxygen saturation were monitored throughout the procedure. The endoscope was advanced beyond the duodenal bulb. Retroflexion within the gastric lumen was accomplished. The gastroscope was carefully removed. Digital rectal exam revealed no significant abnormality. The colonoscope was placed in position. The entire colon was evaluated. The colonoscope was carefully removed and the patient was transferred to recovery in stable condition. Please see findings and specimens below for detail. Findings:: Large volume of food particles throughout gastric lumen and duodenum Bowel preparation poor Anastomosis appeared normal Hemorrhoidal cushions Specimens:: Antral biopsy Recommendations:: Ongoing evaluation with regard to weight loss Consider gastric emptying study Consider UGI/SBFT Repeat colonoscopy in 6-12 months with extended bowel preparation Complications:: Poor bowel preparation Estimated blood obtained (mL): 1
== END 2021-06-22 09:01 | disposition home or self-care (01) ==
LOC: OUTP 06:51
PROVIDERS: PCP Nurse Practitioner Family; Visit Provider Surgery
PROC: 0DJ08ZZ Inspection of Upper Intestinal Tract, Via Natural or Artificial Opening Endoscopic (ICD-10-PCS; CPT 43235; principal; 2021-06-22 07:30)
DX: Z12.11 Encounter for screening for malignant neoplasm of colon (principal); Z90.49 Acquired absence of other specified parts of digestive tract; K64.0 First degree hemorrhoids; R63.4 Abnormal weight loss; J45.909 Unspecified asthma, uncomplicated; K21.9 Gastro-esophageal reflux disease without esophagitis; E78.5 Hyperlipidemia, unspecified; I10 Essential (primary) hypertension; Z86.718 Personal history of other venous thrombosis and embolism; Z88.6 Allergy status to analgesic agent; Z79.899 Other long term (current) drug therapy
CPT/HCPCS: 43239; G0121; 88305

== ENCOUNTER → 2021-06-26 11:05 | Outpatient (POV) | payer MEDICARE, SELFPAY ==
[2021-06-26 11:27] VITALS: BP 132/75; PULSE 63; RESP 18; O2SAT 96; BMI 23.6
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
== END ==
LOC: SC.PAIN 11:05
PROVIDERS: Visit Provider Clinical Nurse Specialist Family Health
DX: M51.16 Intervertebral disc disorders with radiculopathy, lumbar region (principal); M79.2 Neuralgia and neuritis, unspecified
CPT/HCPCS: 99212; G0463

== ENCOUNTER → 2021-07-17 10:08 | Outpatient (POV) | payer MEDICARE, SELFPAY ==
[2021-07-17 10:15] VITALS: BP 147/81; PULSE 59; RESP 18; O2SAT 97; BMI 23.6
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
== END ==
LOC: SC.PAIN 10:09
PROVIDERS: Visit Provider Clinical Nurse Specialist Family Health
DX: M51.16 Intervertebral disc disorders with radiculopathy, lumbar region (principal)
CPT/HCPCS: 99212; G0463

== ENCOUNTER → 2021-08-07 10:31 | Outpatient (POV) | payer MEDICARE, SELFPAY ==
[2021-08-07 10:44] VITALS: BP 159/87; PULSE 64; RESP 18; O2SAT 97; BMI 23.6
--- NOTE | 2021-08-07 10:48 | HMH.PAINSOAP ---
[facility] Pain Management SOAP Note Subjective:: Patient is a 71-year-old white male who presents today for medication refills. The patient does get [place] 10 mg 1 tablet p.o. 4 times daily and gabapentin 800 mg 1 tablet p.o. 4 times daily for chronic low back pain. He also has chronic knee and shoulder pain. The patient does go to [facility] and does get rooster comb injected into his knees. He says this gives him significant relief. He does rate his pain a 5 out of 10 today. The patient has pain with standing and walking with radicular pain into bilateral lower extremities. He is not interested in any type of implanted devices and injective therapy does not give him significant relief with corticosteroids. He has undergone physical therapy for more than 6 weeks in the past. He does continue with home stretching. He does take Tylenol as needed for breakthrough pain as well. Patient does say that the medication takes the edge off of his pain. Review of Systems General: No recent weight changes, no fever, no sleep disturbances Respiratory: No cough, no shortness of air, no recurring pulmonary infections Cardiovascular/peripheral vascular: No chest pain, no palpitations, no edema, no shortness of breath Gastrointestinal: No new onset incontinence, normal bowel movements reported Genitourinary: No new onset incontinence Musculoskeletal: [] Psychiatric: [Normal mood/affect] Neurological: [Denies weakness in extremities], [denies balance issues] Objective:: Physical exam General: Alert and oriented x3, no acute distress, pleasant and cooperative Lungs: Respirations even and unlabored, symmetrical chest expansion Eyes: PERRL Musculoskeletal: Flexion and extension of lumbar [spine] somewhat guarded secondary to pain, [antalgic gait noted] Neurological: Speech clear, no gross sensory deficit Assessment:: Degenerative disc disease lumbar spine with lumbar radiculopathy symptoms Plan:: We will refill the patient's [place] 10 mg 1 tablet p.o. 4 times daily and gabapentin 800 mg 1 tablet p.o. 4 times daily. We will give the patient a month medication and plan to see him back in the clinic in 1 month. Risks and benefits of the medication have been explained in detail to the patient. The patient does understand the risks dependence on the medication when given over a prolonged period. Patient has been advised of risks of oversedation with the prescribed medication. Narcan has been offered to the paitent in the event of oversedation. Patient has been advised that a family member should also be educated regarding administration of Narcan. The patient has been advised to consult with his/her primary care provider and pharmacist regarding drug-drug interaction of medications currently prescribed. Patient has been prescribed a controlled substance after being counseled on the medication, medication safety, and possible side effects. MARIA DE JESUS report has been obtained and reviewed prior to prescription and found to be appropriate. Opioid contract was reviewed and signed by the patient, and that they have agreed to all of the terms set forth by our compliance program. Patient has been instructed to contact the clinic with any concerns before the next appointment. Dr. Gongora has reviewed this note and agrees with this plan of care. This note was dictated using voice recognition software and make contain errors or omissions. [facility] History I have reviewed the patient's past medical history: Yes Medical History: Reports:: Asthma, Deep Vein Thrombosis, Gastroesophageal Reflux Disease(GERD), Hyperlipidemia, Hypertension Denies:: Cancer, Diabetes Mellitus Type 1, Diabetes Mellitus Type 2, Internal Pacemaker, MRSA, Seizures *Have you ever received a pneumonia vaccine?: Yes *Have you received a flu vaccine this season?: No Other Medical History: Denies: Blood Transfusion Reaction Laterality Cases: Bilateral: Other Other [place]
== END ==
LOC: SC.PAIN 10:31
PROVIDERS: Visit Provider Clinical Nurse Specialist Family Health
DX: M51.16 Intervertebral disc disorders with radiculopathy, lumbar region (principal)
CPT/HCPCS: 99212; G0463

== ENCOUNTER → 2021-09-11 10:26 | Outpatient (POV) | payer MEDICARE, SELFPAY ==
[2021-09-11 10:34] VITALS: BP 172/79; PULSE 63; RESP 18; O2SAT 96; BMI 22.8
--- NOTE | 2021-09-11 10:40 | HMH.PAINSOAP ---
[facility] Pain Management SOAP Note Subjective:: Patient is a 71-year-old white male who presents today for medication refills. The patient is treated for chronic low back pain. He also has chronic knee and shoulder pain. He does undergo injective therapy of his knees periodically. He does get significant relief with injections and oral medications. He does rate his pain a 4 out of 10, 5 out of 10 is the patient's baseline. He says he does not feel comfortable increasing the dosing of his medication. He is currently on Bulan 10 mg 1 tablet p.o. 4 times daily and gabapentin 800 mg 1 tablet p.o. 4 times daily. He denies any side effects to the medicine. His Maria De Jesus #[id number] has been reviewed and is appropriate. The patient's morphine equivalent is 40. Drug screens have been appropriate. Review of Systems General: No recent weight changes, no fever, no sleep disturbances Respiratory: No cough, no shortness of air, no recurring pulmonary infections Cardiovascular/peripheral vascular: No chest pain, no palpitations, no edema, no shortness of breath Gastrointestinal: No new onset incontinence, normal bowel movements reported Genitourinary: No new onset incontinence Musculoskeletal: Low back pain, bilateral knee pain, shoulder pain Psychiatric: [Normal mood/affect] Neurological: [Denies weakness in extremities], [denies balance issues] Objective:: Physical exam General: Alert and oriented x3, no acute distress, pleasant and cooperative Lungs: Respirations even and unlabored, symmetrical chest expansion Eyes: PERRL Musculoskeletal: Flexion and extension of lumbar [spine] and bilateral knees somewhat guarded secondary to pain, [antalgic gait noted] Neurological: Speech clear, no gross sensory deficit Assessment:: Degenerative disc disease lumbar spine with lumbar radiculopathy symptoms, shoulder pain, bilateral knee pain Plan:: We will refill the patient's Bulan 10 mg 1 tablet p.o. 4 times daily and gabapentin 800 mg 1 tablet p.o. 4 times daily. Patient month medication. We will see him back in 1 month. Risks and benefits of the medication have been explained in detail to the patient. The patient does understand the risk of dependence on the medication when given over a prolonged period. Patient has been advised of risks of oversedation with the prescribed medication. Narcan has been offered to the paitent in the event of oversedation. Patient has been advised that a family member should also be educated regarding administration of Narcan. The patient has been advised to consult with his/her primary care provider and pharmacist regarding drug-drug interaction of medications currently prescribed. Patient has been prescribed a controlled substance after being counseled on the medication, medication safety, and possible side effects. MARIA DE JESUS report has been obtained and reviewed prior to prescription and found to be appropriate. Opioid contract was reviewed and signed by the patient, and that they have agreed to all of the terms set forth by our compliance program. Patient has been instructed to contact the clinic with any concerns before the next appointment. Dr. Gongora has reviewed this note and agrees with this plan of care. This note was dictated using voice recognition software and make contain errors or omissions. [facility] History I have reviewed the patient's past medical history: Yes Medical History: Reports:: Asthma, Deep Vein Thrombosis, Gastroesophageal Reflux Disease(GERD), Hyperlipidemia, Hypertension Denies:: Cancer, Diabetes Mellitus Type 1, Diabetes Mellitus Type 2, Internal Pacemaker, MRSA, Seizures *Have you ever received a pneumonia vaccine?: Yes *Have you received a flu vaccine this season?: No Other Medical History: Denies: Blood Transfusion Reaction Laterality Cases: Bilateral: Other Other Surgeries: Yes: No Previous Surgery, Colonoscopy, Other. No: Pacemaker Amputation: No Fractures: No - *So
[2021-09-11 16:28] LABS: Benzodiazepines Screen,Urine Negative ng/ml (<200)
[2021-09-11 16:29] LABS: Amphetamine/Metha Screen,Urine Negative ng/ml (<1000); Barbiturates Screen,Urine Negative ng/ml (<200)
[2021-09-11 16:30] LABS: Cannabinoid Screen,Urine Negative ng/ml (<50); Cocaine Screen,Urine Negative ng/ml (<300)
[2021-09-11 16:31] LABS: Methadone Screen,Urine Negative ng/ml (<300)
[2021-09-11 16:32] LABS: Opiate Screen,Urine Positive ng/ml (<300)
[2021-09-11 17:39] LABS: Phencyclidine Screen,Urine Negative ng/ml (<25)
== END ==
PROVIDERS: Visit Provider Clinical Nurse Specialist Family Health
DX: M51.16 Intervertebral disc disorders with radiculopathy, lumbar region (principal); M25.519 Pain in unspecified shoulder; M25.561 Pain in right knee; M25.562 Pain in left knee; Z79.891 Long term (current) use of opiate analgesic
CPT/HCPCS: 80305; 99212; G0463

== ENCOUNTER → 2021-10-12 10:47 | Outpatient (POV) | payer MEDICARE, SELFPAY ==
[2021-10-12 11:19] VITALS: BP 140/81; PULSE 63; RESP 18; O2SAT 95; BMI 24.3
--- NOTE | 2021-10-12 11:33 | HMH.PAINSOAP ---
[facility] Pain Management SOAP Note Subjective:: Patient is a 71-year-old white male who presents today for medication refills. 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 This is worse in his low back pain. He also has chronic knee and shoulder pain. He does get injective therapy to his knees. Today, he rates his pain a 4 out of 10 which is baseline for him. He is managed with [place] 10 mg 1 tablet p.o. 4 times daily and gabapentin 800 mg 1 tablet p.o. 4 times daily. He denies any side effects to the medication. He does say that he gets up to 60% relief with the medicines. He does not want to increase his dosing due to concerns of oversedation. The patient does continue with home stretching. He has tried physical therapy in the past with minimal relief. [facility] #[id number] has been reviewed and is appropriate. Drug screen is appropriate. Morphine equivalent is 40. Review of Systems General: No recent weight changes, no fever, no sleep disturbances Respiratory: No cough, no shortness of air, no recurring pulmonary infections Cardiovascular/peripheral vascular: No chest pain, no palpitations, no edema, no shortness of breath Gastrointestinal: No new onset incontinence, normal bowel movements reported Genitourinary: No new onset incontinence Musculoskeletal: Low back pain with radiation into bilateral knees Psychiatric: [Normal mood/affect] Neurological: [Denies weakness in extremities], [denies balance issues] Objective:: Physical exam General: Alert and oriented x3, no acute distress, pleasant and cooperative Lungs: Respirations even and unlabored, symmetrical chest expansion Eyes: PERRL Musculoskeletal: Flexion and extension of lumbar [spine] somewhat guarded secondary to pain, [antalgic gait noted] Neurological: Speech clear, no gross sensory deficit Assessment:: Degenerative disc disease lumbar spine with lumbar radiculopathy symptoms, bilateral knee pain Plan:: We will continue the patient's [place] 10 mg 1 tablet p.o. 4 times daily and gabapentin 800 mg 1 tablet p.o. 4 times daily. We will give the patient a month medication we will see him back in the clinic in 1 month. Patient's morphine equivalent is 40. Risks and benefits of the medication have been explained in detail to the patient. The patient does understand the risk of dependence on the medication when given over a prolonged period. Patient has been advised of risks of oversedation with the prescribed medication. Narcan has been offered to the paitent in the event of oversedation. Patient has been advised that a family member should also be educated regarding administration of Narcan. The patient has been advised to consult with his/her primary care provider and pharmacist regarding drug-drug interaction of medications currently prescribed. Patient has been prescribed a controlled substance after being counseled on the medication, medication safety, and possible side effects. MARIA DE JESUS report has been obtained and reviewed prior to prescription and found to be appropriate. Opioid contract was reviewed and signed by the patient, and that they have agreed to all of the terms set forth by our compliance program. Patient has been instructed to contact the clinic with any concerns before the next appointment. Dr. Gongora has reviewed this note and agrees with this plan of care. This note was dictated using voice recognition software and make contain errors or omissions. [facility] History I have reviewed the patient's past medical history: Yes Medical History: Reports:: Asthma, Deep Vein Thrombosis, Gastroesophageal Reflux Disease(GERD), Hyperlipidemia, Hypertension Denies:: Cancer, Diabetes Mellitus Type 1, Diabetes Mellitus Type 2, Internal Pacemaker, MRSA, Seizures *Have you ever received a pneumonia vaccine?: Yes *Have you received a flu vaccine this season?: No Other Medical History: Denies: Blood Transfusion R
== END ==
LOC: SC.PAIN 10:47
PROVIDERS: Visit Provider Clinical Nurse Specialist Family Health
DX: M51.16 Intervertebral disc disorders with radiculopathy, lumbar region (principal); M25.561 Pain in right knee; M25.562 Pain in left knee
CPT/HCPCS: 99212; G0463

== ENCOUNTER → 2021-11-14 14:00 | Outpatient (POV) | payer MEDICARE, SELFPAY ==
[2021-11-14 14:19] VITALS: BP 141/75; PULSE 74; RESP 18; O2SAT 96; BMI 25.8
--- NOTE | 2021-11-14 14:29 | HMH.PAINSOAP ---
[facility] Pain Management SOAP Note Subjective:: Patient is a 71-year-old white male who presents today for medication refills. He does have chronic low back pain and bilateral knee pain as well as bilateral shoulder pain. We did perform injective therapy routinely to his shoulders and knees. Today, his pain is a 2 out of 10. He is getting significant relief with his oral medications. We do manage the patient with [place] 10 mg 1 tablet p.o. 4 times daily and gabapentin 800 mg 1 tablet p.o. 4 times daily. [facility] [id number] has been reviewed and is appropriate. Drug screen is appropriate. He denies any side effects to the medication. . Review of Systems General: No recent weight changes, no fever, no sleep disturbances Respiratory: No cough, no shortness of air, no recurring pulmonary infections Cardiovascular/peripheral vascular: No chest pain, no palpitations, no edema, no shortness of breath Gastrointestinal: No new onset incontinence, normal bowel movements reported Genitourinary: No new onset incontinence Musculoskeletal: Worse with low back pain with radiation into bilateral knees, bilateral shoulder pain Psychiatric: [Normal mood/affect] Neurological: [Denies weakness in extremities], [denies balance issues] Objective:: Physical exam General: Alert and oriented x3, no acute distress, pleasant and cooperative Lungs: Respirations even and unlabored, symmetrical chest expansion Eyes: PERRL Musculoskeletal: Flexion and extension of cervical and lumbar [spine] somewhat guarded secondary to pain, [antalgic gait noted] Neurological: Speech clear, no gross sensory deficit Assessment:: 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 4 times daily and gabapentin 800 mg 1 tablet p.o. 4 times daily. We will give the patient a month medication see him back in the clinic in 1 month via telehealth. This will prevent the patient's high risk exposure to COVID. Risks and benefits of the medication have been explained in detail to the patient. The patient does understand the risk of dependence on the medication when given over a prolonged period. Patient has been advised of risks of oversedation with the prescribed medication. Narcan has been offered to the paitent in the event of oversedation. Patient has been advised that a family member should also be educated regarding administration of Narcan. The patient has been advised to consult with his/her primary care provider and pharmacist regarding drug-drug interaction of medications currently prescribed. Patient has been prescribed a controlled substance after being counseled on the medication, medication safety, and possible side effects. [facility]ES[facility] report has been obtained and reviewed prior to prescription and found to be appropriate. Opioid contract was reviewed and signed by the patient, and that they have agreed to all of the terms set forth by our compliance program. Patient has been instructed to contact the clinic with any concerns before the next appointment. Dr. Gongora has reviewed this note and agrees with this plan of care. This note was dictated using voice recognition software and make contain errors or omissions. [facility] History I have reviewed the patient's past medical history: Yes Medical History: Reports:: Asthma, Deep Vein Thrombosis, Gastroesophageal Reflux Disease(GERD), Hyperlipidemia, Hypertension Denies:: Cancer, Diabetes Mellitus Type 1, Diabetes Mellitus Type 2, Internal Pacemaker, MRSA, Seizures *Have you ever received a pneumonia vaccine?: Yes *Have you received a flu vaccine this season?: No Other Medical History: Denies: Blood Transfusion Reaction Laterality Cases: Bilateral: Other Other Surgeries: Yes: No Previous Surgery, Colonoscopy, Other. No: Pacemaker Amputation: No Fractures: No - *Social History Smoking Status:
== END ==
LOC: SC.PAIN 14:00
PROVIDERS: Visit Provider Clinical Nurse Specialist Family Health
DX: M51.16 Intervertebral disc disorders with radiculopathy, lumbar region (principal); M25.511 Pain in right shoulder; M25.512 Pain in left shoulder; M25.561 Pain in right knee; G89.29 Other chronic pain
CPT/HCPCS: 99212; G0463

== ENCOUNTER → 2021-12-14 14:02 | Outpatient (POV) | payer MEDICARE, SELFPAY ==
[2021-12-14 14:24] VITALS: BP 149/75; PULSE 77; RESP 18; O2SAT 96; BMI 22.8
--- NOTE | 2021-12-14 14:47 | P.CONS_ITS ---
[facility] Pain Management SOAP Note Subjective:: Patient is a very pleasant 71-year-old white male who presents today for follow- up and medication refills. He is currently being treated for degenerative disease of lumbar spine lumbar radiculopathy, bilateral shoulder pain, and bilateral knee pain. He is currently prescribed [place] 10 mg 1 tablet p.o. 4 times daily and gabapentin 800 mg 1 tablet p.o. 4 times daily. He states that the current pain regimen is adequately managing his chronic pain symptoms at this time. He denies any adverse effects to the medications. He states that these medications allow him to maintain functionality and overall mobility. ROS General: No recent weight changes, no fever, no sleep disturbances Respiratory: No cough, no shortness of air, no recurring pulmonary infections Cardiovascular/peripheral vascular: No chest pain, no palpitations, no edema, no shortness of breath Gastrointestinal: No new onset incontinence, normal bowel movements reported Genitourinary: No new onset incontinence Musculoskeletal: Chronic low back pain, bilateral shoulder pain, bilateral knee pain Psychiatric: [Normal mood/affect] Neurological: [Denies weakness in extremities], [denies balance issues] Objective:: General: Alert and oriented x3, no acute distress, pleasant and cooperative Lungs: Resps E/U, symmetric chest expansion Eyes: PERRL Musculoskeletal: limited flexion and extension of the lumbar spine secondary to pain. Deep tendon reflexes were normal in bilateral lower extremities. Motor exam was grossly intact in the bilateral lower extremities, antalgic gait noted. Neurological: Speech is clear, audio operator equal, no gross sensory deficits Assessment:: Degenerative disc disease of lumbar spine with lumbar radiculopathy, bilateral shoulder pain secondary to primary osteoarthritis, lateral knee pain secondary to primary osteoarthritis Plan:: I discussed with the patient that we will continue and refill the [place] 10 mg 1 tablet p.o. 4 times daily #120 for a 1 month supply and gabapentin 800 mg 1 tablet p.o. 4 times daily #120 for 1 month supply with 2 refills. We will follow-up with this patient in 1 month for reassessment and medication refills. [facility] #[id number] and prior drug screens were reviewed and appropriate. [facility] History Medical History: Reports:: Asthma, Deep Vein Thrombosis, Gastroesophageal Reflux Disease(GERD), Hyperlipidemia, Hypertension Denies:: Cancer, Diabetes Mellitus Type 1, Diabetes Mellitus Type 2, Internal Pacemaker, MRSA, Seizures *Have you ever received a pneumonia vaccine?: No *Have you received a flu vaccine this season?: No Other Medical History: Denies: Blood Transfusion Reaction Laterality Cases: Bilateral: Other Other Surgeries: Yes: No Previous Surgery, Colonoscopy, Other. No: Pacemaker Amputation: No Fractures: No - *Social History Smoking Status: Former smoker Alcohol Intake: never Substance Use Type: denies use *Occupational Status:: unemployed Housing: house *Travel in the last 8 weeks: None Family Hx:: No significant family history
[2021-12-14 15:39] LABS: Barbiturates Screen,Urine Negative ng/ml (<200)
[2021-12-14 15:40] LABS: Benzodiazepines Screen,Urine Negative ng/ml (<200)
[2021-12-14 15:41] LABS: Amphetamine/Metha Screen,Urine Negative ng/ml (<1000); Cannabinoid Screen,Urine Negative ng/ml (<50)
[2021-12-14 15:42] LABS: Cocaine Screen,Urine Negative ng/ml (<300); Methadone Screen,Urine Negative ng/ml (<300)
[2021-12-14 15:43] LABS: Opiate Screen,Urine Positive ng/ml (<300)
[2021-12-14 15:44] LABS: Phencyclidine Screen,Urine Negative ng/ml (<25)
[2022-01-04 21:08] LABS: Codeine Negative (Cutoff=100); Hydrocodone Positive (.); Hydromorphone Positive (.); Morphine Negative (Cutoff=100); Opiates Positive (.)
== END ==
LOC: SC.PAIN 14:02
PROVIDERS: Visit Provider Anesthesiology Pain Medicine
DX: M51.16 Intervertebral disc disorders with radiculopathy, lumbar region (principal); M17.0 Bilateral primary osteoarthritis of knee; Z79.891 Long term (current) use of opiate analgesic; M19.012 Primary osteoarthritis, left shoulder; M19.011 Primary osteoarthritis, right shoulder
CPT/HCPCS: 80305; 80361; 80365; 99212; G0463; G0480

== ENCOUNTER → 2022-01-11 13:52 | Outpatient (POV) | payer MEDICARE, SELFPAY ==
[2022-01-11 14:22] VITALS: BP 128/72; PULSE 70; RESP 18; TEMP 36.7; O2SAT 100; BMI 22.8
--- NOTE | 2022-01-11 15:54 | HMH.PAINSOAP ---
[facility] Pain Management SOAP Note Subjective:: Patient is a pleasant 71-year-old male who is here for medication refill and follow-up. Patient is currently being treated for degenerative disc disease of the cervical and lumbar spine with cervical and lumbar radiculopathy symptoms, bilateral shoulder pain secondary to osteoarthritis, bilateral knee pain. Patient is being managed with [place] 10 mg 4 times a day and gabapentin 800 mg 4 times a day. Patient denies any side effects from the medications. Patient denies any changes to the location and type of pain. Patient states that this is adequately helping manage their pain. Rates pain as 2 out of 10. [facility] number [id number]. Today, patient is complaining of worsening left shoulder pain. He does have osteoarthritis on bilateral shoulders. We have done injections in the shoulder in the past. He feels like he needs another injection. General: No recent weight changes, no fever, no sleep disturbances Respiratory: No cough, no shortness of air, no recurring pulmonary infections Cardiovascular/peripheral vascular: No chest pain, no palpitations, no edema, no shortness of breath Gastrointestinal: No new onset incontinence, normal bowel movements reported Genitourinary: No new onset incontinence Musculoskeletal: Left shoulder pain, low back pain no Psychiatric: [Normal mood/affect] Neurological: [Denies weakness in extremities], [denies balance issues] Objective:: General: Alert and oriented x3, no acute distress, pleasant and cooperative, [on room air] Lungs: Respirations even and unlabored, symmetrical chest expansion Eyes: PERRL Musculoskeletal: Flexion and extension of cervical and lumbar [spine] somewhat guarded secondary to pain; limited range of motion of bilateral shoulders and bilateral knee secondary to pain Neurological: Speech clear, no gross sensory deficit Assessment:: Degenerative disc disease of the cervical and lumbar spine with cervical and lumbar radiculopathy With arthritis of bilateral shoulders and bilateral knees Plan:: We will continue the patient's [place] 10 mg 4 times a day and gabapentin 800 mg 4 times a day. We will provide the patient with 1 month of refills. We would like to see the patient back in 1 month for follow-up and reevaluation of chronic pain syndrome. I will also schedule the patient for a left shoulder intra-articular injection. Risk and benefits of this procedure has been discussed with the patient. Patient would like to proceed with the procedure. Patient has been advised of risks of oversedation with the prescribed medication. Narcan has been offered to the paitent in the event of oversedation. Patient has been advised that a family member should also be educated regarding administration of Narcan. Patient has been instructed to contact the clinic with any concerns before the next appointment. Dr. Gongora has reviewed this note and agrees with this plan of care. This note was dictated using voice recognition software and make contain errors or omissions. [facility] History Medical History: Reports:: Asthma, Deep Vein Thrombosis, Gastroesophageal Reflux Disease(GERD), Hyperlipidemia, Hypertension Denies:: Cancer, Diabetes Mellitus Type 1, Diabetes Mellitus Type 2, Internal Pacemaker, MRSA, Seizures *Have you ever received a pneumonia vaccine?: Yes *Have you received a flu vaccine this season?: No Other Medical History: Denies: Blood Transfusion Reaction Laterality Cases: Bilateral: Other Other Surgeries: Yes: No Previous Surgery, Colonoscopy, Other. No: Pacemaker Amputation: No Fractures: No - *Social History Smoking Status: Former smoker Alcohol Intake: never Substance Use Type: denies use *Occupational Status:: retired Housing: house *Travel in the last 8 weeks: None Family Hx:: No significant family history
== END ==
LOC: SC.PAIN 13:52
PROVIDERS: Visit Provider Student in an Organized Health Care Education/Training Program
DX: M50.10 Cervical disc disorder with radiculopathy, unspecified cervical region (principal); M51.16 Intervertebral disc disorders with radiculopathy, lumbar region; M19.011 Primary osteoarthritis, right shoulder; M19.012 Primary osteoarthritis, left shoulder; M17.0 Bilateral primary osteoarthritis of knee
CPT/HCPCS: 99212; G0463

== ENCOUNTER 2022-01-19 12:50 | Day surgery (SDC) | payer MEDICARE, SELFPAY ==
[2022-01-19 12:56] VITALS: BP 145/97; BP 146/98; PULSE 71; PULSE 72; RESP 18; O2SAT 96; O2SAT 97
[2022-01-19 12:58] VITALS: BP 127/69; PULSE 72; RESP 18; TEMP 36.6; O2SAT 98; BMI 22.8
--- NOTE | 2022-01-19 13:06 | P.PCN_ITS ---
- Procedure Date: 01/19/22 Time: 13:06 Anesthesiologist:: Caitlin Sandoval MD Complications:: None Pre-procedure Diagnosis:: Left shoulder osteoarthritis, left shoulder pain Post-procedure Diagnosis:: Same Indications for Procedure:: This patient is a very pleasant 71-year-old white male who presents today with chronic left shoulder pain related to the above diagnosis. He has tried and failed conservative treatment getting oral pain medications and home stretching program for greater than 6 weeks. He is currently managed with [place] 10 mg 4 times a day and gabapentin 800 mg 4 times a day. The plan for today is for the patient to undergo left intrarticular shoulder injections. Procedure Details:: Informed consent was obtained. Risks and benefits of the procedure were explained to the patient. Patient was taken back to the procedure. The left shoulder was prepped using ChloraPrep. A 25-gauge needle was used first posteriorly in the medial to lateral trajectory the needle is advanced into the glenohumeral joint of the left shoulder was approached, at which point 3 mL of injectate solution of 5 mL of 1% lidocaine, 5 mL bupivacaine 0.25% and Depo- Medrol 40 mg was injected. Next the trajectory was adjusted so that the needle was advanced anteriorly and superiorly into the subacromial bursa of the shoulder, at which point 5 mL of the same injectate solution was injected. The needle was removed and scapular spine was palpated and a 25-gauge needle was advanced to 45 degrees toward the suprascapular notch, at which point 10 mL of the same injectate solution was injected. Patient tolerated the procedure well without any complications. Plan and Disposition:: Follow-up with this patient in 2 weeks. Will reevaluate pain symptoms at that time.
[2022-01-19 13:25] VITALS: BP 129/79; PULSE 66; RESP 20; O2SAT 98
== END 2022-01-19 13:25 | disposition home or self-care (01) ==
LOC: SC.PAINP 12:51
PROVIDERS: PCP Family Medicine; Visit Provider Anesthesiology Pain Medicine
DX: M19.012 Primary osteoarthritis, left shoulder (principal); J45.909 Unspecified asthma, uncomplicated; I73.9 Peripheral vascular disease, unspecified; K21.9 Gastro-esophageal reflux disease without esophagitis; E78.5 Hyperlipidemia, unspecified; I10 Essential (primary) hypertension; Z87.891 Personal history of nicotine dependence; Z88.6 Allergy status to analgesic agent
CPT/HCPCS: 20610; J1040

== ENCOUNTER → 2022-02-12 09:07 | Outpatient (POV) | payer MEDICARE, SELFPAY ==
[2022-02-12 09:29] VITALS: BP 143/79; PULSE 56; RESP 18; TEMP 36.7; O2SAT 97; BMI 23.6
--- NOTE | 2022-02-12 09:31 | HMH.PAINSOAP ---
[facility] Pain Management SOAP Note Subjective:: Patient is a pleasant 71-year-old male who presents today for follow-up after a left intra-articular shoulder injection on January 19, 2022. He is currently being treated for osteoarthritis of the left shoulder and left knee. After the procedure, patient had minimal relief. He states that he was having trouble sleeping for about a week on his left side. When he was seeing orthopedics in [place], he was getting injections in the shoulder and left knee. He was also recommended that he gets a left shoulder replacement but he did not want to move forward with any more surgical interventions. He previously had left elbow surgery and left hip surgery. For pain, we are currently managing the patient with [place] 10 mg 4 times a day and gabapentin 800 mg 4 times a day. He denies any side effects from these medication. Needs refills on his medications. He states that these medications are helping manage his pain adequately. He says that he takes his [place] 10 mg 3-4 times a day. He only takes a for one when he cannot tolerate his pain anymore. Rates his pain today as 3 out of 10. [facility] #[id number] with an active morphine equivalent of 40. Review of Systems: General: No recent weight changes, no fever, no sleep disturbances Respiratory: No cough, no shortness of air, no recurring pulmonary infections Cardiovascular/peripheral vascular: No chest pain, no palpitations, no edema, no shortness of breath Gastrointestinal: No new onset incontinence, normal bowel movements reported Genitourinary: No new onset incontinence Musculoskeletal: Left shoulder pain, left hip pain, left knee pain Psychiatric: [Normal mood/affect] Neurological: [Denies weakness in extremities], [denies balance issues] Objective:: Physical Exam: General: Alert and oriented x3, no acute distress, pleasant and cooperative, [on room air] Lungs: Respirations even and unlabored, symmetrical chest expansion Eyes: PERRL Musculoskeletal: Limited range of motion of the left shoulder and left knee secondary to pain Neurological: Speech clear, no gross sensory deficit Assessment:: Osteoarthritis of the left shoulder and left knee Plan:: Patient had minimal relief after his left intra-articular shoulder injection. He states that he cannot tolerate his pain for about a week. During exam, patient was unable to fully abduct laterally his left shoulder. He states that he continues to do at home exercises. He says that his left knee is bothering him today and was getting left knee injections in the past. We will schedule the patient for a left knee intra-articular injection. Risks and benefits of the procedure have been explained to the patient. Patient would like to proceed with the procedure. We will manage the patient's left shoulder and left knee pain with intra-articular injection or blocks every 3 to 4 months. Next shoulder injection is due on April 2022. We will continue the patient's gabapentin 800 mg 4 times a day. Since patient is only taking his [place] 3-4 times a day. I will change his [place] to [place] 10mg TID #105 tabs. Patient has been instructed to contact the clinic with any concerns before the next appointment. Dr. Gongora has reviewed this note and agrees with this plan of care. This note was dictated using voice recognition software and make contain errors or omissions. [facility] History Medical History: Reports:: Asthma, Deep Vein Thrombosis, Gastroesophageal Reflux Disease(GERD), Hyperlipidemia, Hypertension Denies:: Cancer, Diabetes Mellitus Type 1, Diabetes Mellitus Type 2, Internal Pacemaker, MRSA, Seizures *Have you ever received a pneumonia vaccine?: Yes *Have you received a flu vaccine this season?: Yes Other Medical History: Denies: Blood Transfusion Reaction Laterality Cases: Bilateral: Other Other Surgeries: Yes: No Previous Surgery, Colonoscopy, Other. No: Pacemaker Amputation: No Fractures: No - *Social Hist
== END ==
LOC: SC.PAIN 09:08
PROVIDERS: Visit Provider Student in an Organized Health Care Education/Training Program
DX: M19.012 Primary osteoarthritis, left shoulder; M17.12 Unilateral primary osteoarthritis, left knee
CPT/HCPCS: 99212; G0463

== ENCOUNTER 2022-02-16 09:02 | Day surgery (SDC) | payer MEDICARE, SELFPAY ==
[2022-02-16 09:13] VITALS: BP 119/69; PULSE 48; RESP 18; TEMP 36.6; O2SAT 98; BMI 24.1
[2022-02-16 09:20] VITALS: BP 119/69; PULSE 48; RESP 18; O2SAT 98
[2022-02-16 09:25] VITALS: BP 116/80; PULSE 65; RESP 18; O2SAT 98
--- NOTE | 2022-02-16 09:27 | P.PCN_ITS ---
- Procedure Date: 02/16/22 Time: 09:28 Anesthesiologist:: Jorge Han CRNA Complications:: None Pre-procedure Diagnosis:: Left knee osteoarthritis Post-procedure Diagnosis:: Same Indications for Procedure:: This patient is a very pleasant 71-year-old white male whose been seeing us for many years in our clinic for different things. He has bilateral osteoarthritis knees. He has bilateral knee pain at times. Pain increases when standing and/or walking for any length of time. He is responded very well to intra- articular knee injections in the past. Today we will inject his left knee. Procedure Details:: Details of the procedure were explained to the patient. The patient was taken to the procedure room and placed in a sitting position. The area over the left knee was cleansed using chlorhexidine as a cleansing solution. Using a 1-1/2 inch needle the lateral condylar notch was the access point for the intra- articular knee injection using 4 cc of 0.25% Marcaine +4 cc of 1% lidocaine and 40 mg of Depo-Medrol. The injection was without difficulty. Patient tolerated well. We will see the patient back for follow-up. Plan and Disposition:: Patient will return to see us in the clinic as needed.
[2022-02-16 09:30] VITALS: BP 116/80; PULSE 65; RESP 18; O2SAT 98
== END 2022-02-16 09:31 | disposition home or self-care (01) ==
LOC: SC.PAINP 09:03
PROVIDERS: PCP Family Medicine; Visit Provider Nurse Anesthetist, Certified Registered
DX: M17.12 Unilateral primary osteoarthritis, left knee (principal); J45.909 Unspecified asthma, uncomplicated; I73.9 Peripheral vascular disease, unspecified; K21.9 Gastro-esophageal reflux disease without esophagitis; E78.5 Hyperlipidemia, unspecified; I10 Essential (primary) hypertension; Z88.6 Allergy status to analgesic agent
CPT/HCPCS: 20610; J1040

== ENCOUNTER → 2022-03-19 10:36 | Outpatient (POV) | payer MEDICARE, SELFPAY ==
[2022-03-19 10:49] VITALS: BP 168/95; PULSE 63; RESP 18; TEMP 37.2; O2SAT 98; BMI 22.8
--- NOTE | 2022-03-19 13:55 | HMH.PAINSOAP ---
[facility] Pain Management SOAP Note Subjective:: Patient is a pleasant 72-year-old male who presents today for a follow-up after a left knee intra-articular injection. Patient is currently being treated for osteoarthritis of the left shoulder and left knee. After the procedure, patient had significant relief that lasted for 3 to 4 days. Denies any issues after the procedure. Rates pain as 4 out of 10. Today, patient is complaining of left knee pain. He takes [place] 10 mg 3-4 times a day that somewhat helps with his pain. He also takes gabapentin 804 times a day. Denies any side effects with this medication. He is not needing refills on these medications. [facility] [id number] with an active morphine equivalent of 0. Review of Systems: General: No recent weight changes, no fever, no sleep disturbances Respiratory: No cough, no shortness of air, no recurring pulmonary infections Cardiovascular/peripheral vascular: No chest pain, no palpitations, no edema, no shortness of breath Gastrointestinal: No new onset incontinence, normal bowel movements reported Genitourinary: No new onset incontinence Musculoskeletal: Left knee pain Psychiatric: [Normal mood/affect] Neurological: [Denies weakness in extremities], [denies balance issues] Objective:: Physical Exam: General: Alert and oriented x3, no acute distress, pleasant and cooperative Lungs: Respirations even and unlabored, symmetrical chest expansion Eyes: PERRL Musculoskeletal: Limited range of motion of the left knee secondary to pain Neurological: Speech clear, no gross sensory deficit Assessment:: Osteoarthritis of the left shoulder and left knee Plan:: Patient had significant relief after the left intra-articular injection that lasted for about a week. I discussed with the patient that it might be beneficial to try a left genicular nerve block. Patient agrees. We will schedule the patient for a left genicular nerve block. Risk and benefits have been discussed with the patient. Patient would like to proceed with this procedure. Left intra-articular shoulder injection is due on April 2022. Patient has been instructed to contact the clinic with any concerns before the next appointment. Dr. Gongora has reviewed this note and agrees with this plan of care. This note was dictated using voice recognition software and make contain errors or omissions. [facility] History Medical History: Reports:: Asthma, Deep Vein Thrombosis, Gastroesophageal Reflux Disease(GERD), Hyperlipidemia, Hypertension Denies:: Cancer, Diabetes Mellitus Type 1, Diabetes Mellitus Type 2, Internal Pacemaker, MRSA, Seizures *Have you ever received a pneumonia vaccine?: Yes *Have you received a flu vaccine this season?: Yes Other Medical History: Denies: Blood Transfusion Reaction Laterality Cases: Bilateral: Other Other Surgeries: Yes: No Previous Surgery, Colonoscopy, Other. No: Pacemaker Amputation: No Fractures: No - *Social History Smoking Status: Never smoker Alcohol Intake: never Substance Use Type: denies use *Occupational Status:: retired Housing: house *Travel in the last 8 weeks: None Family Hx:: No significant family history
== END ==
LOC: SC.PAIN 10:36
PROVIDERS: Visit Provider Student in an Organized Health Care Education/Training Program
DX: M19.012 Primary osteoarthritis, left shoulder (principal); M17.12 Unilateral primary osteoarthritis, left knee
CPT/HCPCS: 80305; 80361; 80365; 99212; G0463; G0480

== ENCOUNTER → 2022-03-19 11:18 | Outpatient (CLI) | payer MEDICARE, SELFPAY ==
[2022-03-19 13:05] LABS: Amphetamine/Metha Screen,Urine Negative ng/ml (<1000); Barbiturates Screen,Urine Negative ng/ml (<200)
[2022-03-19 13:06] LABS: Benzodiazepines Screen,Urine Negative ng/ml (<200)
[2022-03-19 13:07] LABS: Opiate Screen,Urine Positive ng/ml (<300)
[2022-03-19 13:08] LABS: Phencyclidine Screen,Urine Negative ng/ml (<25)
[2022-03-19 13:09] LABS: Cannabinoid Screen,Urine Negative ng/ml (<50)
[2022-03-19 13:10] LABS: Cocaine Screen,Urine Negative ng/ml (<300); Methadone Screen,Urine Negative ng/ml (<300)
[2022-04-24 17:09] LABS: Codeine Negative (Cutoff=100); Hydrocodone Positive (.); Hydromorphone Positive (.); Morphine Negative (Cutoff=100); Opiates Positive (.)
== END ==
PROVIDERS: Visit Provider Student in an Organized Health Care Education/Training Program
DX: M17.12 Unilateral primary osteoarthritis, left knee (principal)
CPT/HCPCS: 80305; 80361; 80365; G0480

== ENCOUNTER 2022-03-23 11:49 | Day surgery (SDC) | payer MEDICARE, SELFPAY ==
[2022-03-23 12:02] VITALS: BP 165/85; PULSE 66; RESP 18; TEMP 36.9; O2SAT 96; BMI 22.8
[2022-03-23 12:07] VITALS: BP 161/77; PULSE 64; RESP 18; O2SAT 98
[2022-03-23 12:08] VITALS: BP 163/75; PULSE 66; RESP 18; O2SAT 98
--- NOTE | 2022-03-23 12:15 | HMH.PMPROC ---
- Procedure Date: 03/23/22 Time: 12:15 Anesthesiologist:: Alejandro Gongora MD Complications:: None Pre-procedure Diagnosis:: Left knee pain with degenerative osteoarthritis Post-procedure Diagnosis:: Same Indications for Procedure:: This patient is a pleasant 72-year-old white male who we are treating for left knee pain with degenerative osteoarthritis. He did very well with left knee intra-articular injections. He got 80 to 90% relief of his pain symptoms for a week. His pain is now returned. We will plan on left genicular nerve block, superior medial, inferior medial and superior lateral genicular nerve block today. Procedure Details:: Left knee genicular block Informed consent was obtained and the risk and benefits of the procedure was explained to the patient. The patient was taken to the procedure room. The left knee was prepped using ChloraPrep. I placed 22-gauge needles into the area of the left superior medial genicular nerve, left superior lateral genicular nerve and left inferior medial genicular nerve. Needle placement was confirmed in AP and lateral views with dye. We then injected bupivacaine 0.25% 3 mL's and Depo-Medrol 25 mg into each area of the left superior medial genicular nerve, left superior lateral genicular nerve and left inferior medial genicular nerve. Patient tolerated the procedure well with no complications. Plan and Disposition:: We will follow-up with him in 2 weeks. Will reevaluate symptoms at that time. If successful we will plan on RF ablation to these genicular nerves on the left knee, superior medial, superior lateral and inferior medial genicular nerves.
[2022-03-23 12:20] VITALS: BP 167/80; PULSE 65; RESP 20; O2SAT 98
== END 2022-03-23 12:25 | disposition home or self-care (01) ==
LOC: SC.PAINP 11:51
PROVIDERS: PCP Family Medicine; Visit Provider Anesthesiology
DX: M17.12 Unilateral primary osteoarthritis, left knee (principal); J45.909 Unspecified asthma, uncomplicated; K21.9 Gastro-esophageal reflux disease without esophagitis; E78.5 Hyperlipidemia, unspecified; I10 Essential (primary) hypertension; I65.29 Occlusion and stenosis of unspecified carotid artery; Z88.6 Allergy status to analgesic agent; Z88.5 Allergy status to narcotic agent
CPT/HCPCS: 64454; J1040; Q9966

== ENCOUNTER → 2022-04-09 14:03 | Outpatient (POV) | payer MEDICARE, SELFPAY ==
[2022-04-09 14:54] VITALS: PULSE 58; RESP 20; TEMP 37.2; O2SAT 100; BMI 22.8
--- NOTE | 2022-04-09 15:19 | HMH.PAINSOAP ---
[facility] Pain Management SOAP Note Subjective:: Patient is a pleasant 72-year-old male who presents today for follow-up after a left genicular nerve block on March 23, 2022. Patient is current being treated for osteoarthritis of the left shoulder and left knee. He typically gets significant relief after a left intra-articular shoulder injection, next injection is due in April but patient states that he does not want to schedule this injection yet. We tried a left intra-articular knee injection but only provided the patient 1 week of relief. Since he had temporary relief after that injection, we will schedule the patient for a left genicular nerve block. After this procedure, patient had minimal relief. He states that his pain was worse during the day of the procedure. He is not interested in repeating this injection anytime soon. He rates his pain today as 4 out of 10. We are also managing this patient with gabapentin 800 mg 4 times a day and [place] 10 mg 4 times a day. He still has refills from these medications. Siva [id number] when an active morphine equivalent of 40. Review of Systems: General: No recent weight changes, no fever, no sleep disturbances Respiratory: No cough, no shortness of air, no recurring pulmonary infections Cardiovascular/peripheral vascular: No chest pain, no palpitations, no edema, no shortness of breath Gastrointestinal: No new onset incontinence, normal bowel movements reported Genitourinary: No new onset incontinence Musculoskeletal: Left shoulder pain, left knee pain Psychiatric: [Normal mood/affect] Neurological: [Denies weakness in extremities], [denies balance issues] Objective:: Physical Exam: General: Alert and oriented x3, no acute distress, pleasant and cooperative Lungs: Respirations even and unlabored, symmetrical chest expansion Eyes: PERRL Musculoskeletal: Limited range of motion of the left shoulder and left knee secondary to pain Neurological: Speech clear, no gross sensory deficit Assessment:: Osteoarthritis of the left shoulder and left knee Plan:: We will follow-up with this patient in 1 month for medication refill. Patient is not interested in repeating any injective therapy at the moment. I will also start the patient on a compounding cream. Patient has been instructed to contact the clinic with any concerns before the next appointment. Dr. Gongora has reviewed this note and agrees with this plan of care. This note was dictated using voice recognition software and make contain errors or omissions. [facility] History Medical History: Reports:: Asthma, Carotid Stenosis, Deep Vein Thrombosis, Gastroesophageal Reflux Disease(GERD), Hyperlipidemia, Hypertension Denies:: Cancer, Diabetes Mellitus Type 1, Diabetes Mellitus Type 2, Internal Pacemaker, MRSA, Seizures *Have you ever received a pneumonia vaccine?: Yes *Have you received a flu vaccine this season?: Yes Other Medical History: Reports: Arthritis. Denies: Blood Transfusion Reaction Laterality Cases: Bilateral: Other Other Surgeries: Yes: No Previous Surgery, Colonoscopy, Other. No: Pacemaker Amputation: No Fractures: No - *Social History Smoking Status: Never smoker Alcohol Intake: never Substance Use Type: denies use *Occupational Status:: other Housing: house *Travel in the last 8 weeks: None Family Hx:: No significant family history
== END ==
LOC: SC.PAIN 14:03
PROVIDERS: Visit Provider Student in an Organized Health Care Education/Training Program
DX: M17.12 Unilateral primary osteoarthritis, left knee (principal); M19.012 Primary osteoarthritis, left shoulder
CPT/HCPCS: 99212; G0463

== ENCOUNTER → 2022-05-17 11:34 | Outpatient (POV) | payer MEDICARE, SELFPAY ==
[2022-05-17 11:38] VITALS: BP 146/85; PULSE 64; RESP 20; O2SAT 94; BMI 23.2
--- NOTE | 2022-05-17 13:30 | P.CONS_ITS ---
[facility] Pain Management SOAP Note Subjective:: Patient is a pleasant 72-year-old male who is here for medication refill and follow-up. Patient is currently being treated for osteoarthritis of the left shoulder and left knee. Patient is being managed with gabapentin 800 mg 4 times a day and [place] 10 mg 4 times a day. We have also been managing this patient with injective therapy and have done left intra-articular shoulder injection and left intra-articular knee injections. Patient denies any side effects from the medications. Patient denies any changes to the location and type of pain. Patient states that this is adequately helping manage their pain. Rates pain as 5 out of 10. [facility] number [phone] with an active morphine equivalent 40. Drug screens have been reviewed and appropriate. Review of Systems: General: No recent weight changes, no fever, no sleep disturbances Respiratory: No cough, no shortness of air, no recurring pulmonary infections Cardiovascular/peripheral vascular: No chest pain, no palpitations, no edema, no shortness of breath Gastrointestinal: No new onset incontinence, normal bowel movements reported Genitourinary: No new onset incontinence Musculoskeletal: Left shoulder pain, left knee pain Psychiatric: [Normal mood/affect] Neurological: [Denies weakness in extremities], [denies balance issues] Objective:: Physical Exam: General: Alert and oriented x3, no acute distress, pleasant and cooperative Lungs: Respirations even and unlabored, symmetrical chest expansion Eyes: PERRL Musculoskeletal: Limited range of motion of the left shoulder and left knee secondary to pain Neurological: Speech clear, no gross sensory deficit Assessment:: Osteoarthritis of the left shoulder and left knee Plan:: We will continue the patient's gabapentin 800 mg 4 times a day and [place] 10 mg 4 times a day. We will provide the patient with 1 month worth of refill. We will see this patient in 1 month. Patient has been instructed to contact the clinic with any concerns before the next appointment. Dr. Gongora has reviewed this note and agrees with this plan of care. This note was dictated using voice recognition software and make contain errors or omissions. [facility] History Medical History: Reports:: Asthma, Carotid Stenosis, Deep Vein Thrombosis, Gastroesophageal Reflux Disease(GERD), Hyperlipidemia, Hypertension Denies:: Cancer, Diabetes Mellitus Type 1, Diabetes Mellitus Type 2, Internal Pacemaker, MRSA, Seizures *Have you ever received a pneumonia vaccine?: No *Have you received a flu vaccine this season?: Yes Other Medical History: Reports: Arthritis. Denies: Blood Transfusion Reaction Laterality Cases: Bilateral: Other Other Surgeries: Yes: No Previous Surgery, Colonoscopy, Other. No: Pacemaker Amputation: No Fractures: No - *Social History Smoking Status: Never smoker Alcohol Intake: never Substance Use Type: denies use *Occupational Status:: retired Housing: house *Travel in the last 8 weeks: None Family Hx:: No significant family history
== END ==
LOC: SC.PAIN 11:34
PROVIDERS: Visit Provider Student in an Organized Health Care Education/Training Program
DX: M19.012 Primary osteoarthritis, left shoulder (principal); M17.12 Unilateral primary osteoarthritis, left knee
CPT/HCPCS: 99212; G0463

== ENCOUNTER → 2022-06-14 10:44 | Outpatient (POV) | payer MEDICARE, SELFPAY ==
[2022-06-14 10:49] VITALS: BP 156/89; PULSE 86; RESP 20; BMI 23.6
--- NOTE | 2022-06-14 11:47 | HMH.PAINSOAP ---
[facility] Pain Management SOAP Note Subjective:: Patient is a pleasant 72-year-old male who is here for medication refill and follow-up. Patient is currently being treated for osteoarthritis of the left shoulder and left knee, degenerative disc disease of the lumbar spine lumbar radiculopathy symptoms. Patient is being managed with [place] 10 mg 4 times a day and gabapentin 800 mg 4 times a day. Patient denies any side effects from the medications. Patient denies any changes to the location and type of pain. Patient states that this is adequately helping manage their pain. Rates pain as 5 out of 10. [facility] number [phone] with an active morphine equivalent 40. Drug screens have been reviewed and appropriate. We have also been managing this patient with injective therapy for his left shoulder and left knee. He states that his left shoulder is starting to bother him again and is wanting a left shoulder injection. Review of Systems: General: No recent weight changes, no fever, no sleep disturbances Respiratory: No cough, no shortness of air, no recurring pulmonary infections Cardiovascular/peripheral vascular: No chest pain, no palpitations, no edema, no shortness of breath Gastrointestinal: No new onset incontinence, normal bowel movements reported Genitourinary: No new onset incontinence Musculoskeletal: Low back pain, left shoulder pain, left knee pain Psychiatric: [Normal mood/affect] Neurological: [Denies weakness in extremities], [denies balance issues] Objective:: Physical Exam: General: Alert and oriented x3, no acute distress, pleasant and cooperative Lungs: Respirations even and unlabored, symmetrical chest expansion Eyes: PERRL Musculoskeletal: Flexion and extension of lumbar [spine] somewhat guarded secondary to pain, [antalgic gait noted]; limited range of motion of the left shoulder and left knee secondary to pain Neurological: Speech clear, no gross sensory deficit Assessment:: Degenerative disease of lumbar spine with lumbar radiculopathy symptoms, osteoarthritis of the left shoulder and left knee Plan:: 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 He has been having increase left shoulder pain. We will schedule this patient for a left intra-articular shoulder injection. We will continue the patient's gabapentin 800 mg 4 times a day and [place] 10 mg 4 times a day. We will provide the patient with 1 month of refills. We would like to see the patient back in 1 month for follow-up and reevaluation of chronic pain syndrome. Patient has been advised of risks of oversedation with the prescribed medication. Narcan has been offered to the patient in the event of oversedation. Patient has been advised that a family member should also be educated regarding administration of Narcan. Patient has been instructed to contact the clinic with any concerns before the next appointment. Dr. Gongora has reviewed this note and agrees with this plan of care. This note was dictated using voice recognition software and make contain errors or omissions. [facility] History Medical History: Reports:: Asthma, Carotid Stenosis, Deep Vein Thrombosis, Gastroesophageal Reflux Disease(GERD), Hyperlipidemia, Hypertension Denies:: Cancer, Diabetes Mellitus Type 1, Diabetes Mellitus Type 2, Internal Pacemaker, MRSA, Seizures *Have you ever received a pneumonia vaccine?: No *Have you received a flu vaccine this season?: No Other Medical History: Reports: Arthritis. Denies: Blood Transfusion Reaction Laterality Cases: Bilateral: Other Other Surgeries: Yes: No Previous Surgery, Colonoscopy, Other. No: Pacemaker Amputation: No Fractures: No - *Social History Smoking Status: Never smoker Alcohol Intake: never Substance Use Type: denies use *Occupational Status:: other Housing: house *Travel in the last 8 weeks: None Family Hx:: No significant family history
== END ==
LOC: SC.PAIN 10:44
PROVIDERS: PCP Family Medicine; Visit Provider Student in an Organized Health Care Education/Training Program
DX: M51.16 Intervertebral disc disorders with radiculopathy, lumbar region (principal); M17.12 Unilateral primary osteoarthritis, left knee; M19.012 Primary osteoarthritis, left shoulder
CPT/HCPCS: 99212; G0463

== ENCOUNTER 2022-06-19 11:20 | Day surgery (SDC) | payer MEDICARE, SELFPAY ==
[2022-06-19 11:24] VITALS: PULSE 74; RESP 18; TEMP 36.5; O2SAT 97; BMI 23.6
[2022-06-19 11:53] VITALS: BP 162/82; PULSE 57; RESP 18; TEMP 36.5; O2SAT 98
--- NOTE | 2022-06-19 12:08 | P.PCN_ITS ---
- Procedure Date: 06/19/22 Time: 12:08 Anesthesiologist:: Alejandro Gongora MD Complications:: None Pre-procedure Diagnosis:: Left shoulder pain with osteoarthritis Post-procedure Diagnosis:: Same Indications for Procedure:: This patient is a pleasant 72-year-old white male who we are treating for left shoulder pain with degenerative osteoarthritis. We will do a left intra- articular shoulder injection today to give him relief of his pain symptoms. We will follow-up with him in 2 weeks after this injection. He can continue with his [place] and gabapentin. Procedure Details:: Left intra-articular shoulder injection Informed consent was obtained the risk and benefits of the procedure were explained to the patient. Patient was taken the procedure room. Left shoulder was prepped using ChloraPrep. A 25-gauge needle was used and we injected 10 mL bupivacaine 0.25% and Depo-Medrol 20 mg into the left shoulder joint. The patient tolerated the procedure well with no complications. Plan and Disposition:: We will follow-up with this patient in 2 weeks. Will reevaluate symptoms at that time.
== END 2022-06-19 11:56 | disposition home or self-care (01) ==
LOC: SC.PAINP 11:20
PROVIDERS: PCP Nurse Practitioner Family; Visit Provider Anesthesiology
DX: M19.012 Primary osteoarthritis, left shoulder (principal)
CPT/HCPCS: 20610; J1040

== ENCOUNTER → 2022-07-03 11:45 | Outpatient (POV) | payer MEDICARE, SELFPAY ==
[2022-07-03 12:03] VITALS: BP 172/98; PULSE 74; RESP 18; TEMP 37; O2SAT 96; BMI 27.8
--- NOTE | 2022-07-03 12:05 | EXP.PAIN.SOA ---
[facility] Pain Management SOAP Note Subjective:: Patient is a pleasant 72-year-old male that presents today for follow-up of a left intra-articular shoulder injection on 06/19/2022. We are currently treating the patient for osteoarthritis of his left shoulder and left knee degenerative disc disease of lumbar spine with lumbar radiculopathy symptoms. Patient states that he has not had significant improvement following this injection. He states that he has had increased soreness in his left shoulder around his bicep. Patient rates his pain today a 5 out of 10 and states it is primarily in his left shoulder and describes it as a aching sore sensation that is worse with increased activity. Patient states he has been weed eating lately however did not have any significant trauma or injury to the site. He states he feels like he may have pulled a muscle along his biceps. Patient is currently managed with [place] 10 mg 4 times a day and gabapentin 800 mg 4 times a day. He denies any side effects from this medications. He states these medications are adequately managing his pain. Patient states that he has not been to physical therapy for his left shoulder however has been in the past. Patient did state he uses an oil from a [employer] on his left shoulder and states it does provide significant improvement of his symptoms. His Siva is [id number]. It has been reviewed and appropriate. Review of Systems: General: No recent weight changes, no fever, no sleep disturbances Respiratory: No cough, no shortness of air, no recurring pulmonary infections Cardiovascular/peripheral vascular: No chest pain, no palpitations, no edema, no shortness of breath Gastrointestinal: No new onset incontinence, normal bowel movements reported Genitourinary: No new onset incontinence Musculoskeletal: Left shoulder pain Psychiatric: [Normal mood/affect] Neurological: [Denies weakness in extremities], [denies balance issues] Objective:: Physical Exam: General: Alert and oriented x3, no acute distress, pleasant and cooperative Lungs: Respirations even and unlabored, symmetrical chest expansion Eyes: PERRL Musculoskeletal: Flexion and extension of left shoulder somewhat guarded secondary to pain, [antalgic gait noted] Neurological: Speech clear, no gross sensory deficit Assessment:: Osteoarthritis of left shoulder and left knee, degenerative disc disease of lumbar spine with lumbar radiculopathy symptoms Plan:: Patient continues to have significant pain along his left bicep into his left shoulder at today's visit. I have discussed with the patient regarding sending him to a orthopedic surgeon for referral. Patient would like to proceed forward with this plan of care. I have also discussed with the patient that I will order physical therapy following the recommendations of the orthopedic consult. I will reorder the patient's gabapentin 800 mg 4 times a day and [place] 10 mg 4 times a day and provide a 1 month supply of this medication. Patient will be scheduled for a 1 month follow-up. He will return to clinic in 1 month for reevaluation of his symptoms and medication refill. Patient has been instructed to contact the clinic with any concerns before the next appointment. Dr. Gongora has reviewed this note and agrees with this plan of care. This note was dictated using voice recognition software and make contain errors or omissions. PFSH PFSH Social History Smoking Status: Never smoker second hand exposure: No alcohol intake: never substance use type: denies use current occupational status: other Travel in the last 8 weeks: None housing: house caffeine: Yes
== END | disposition home or self-care (01) ==
PROVIDERS: Visit Provider Nurse Practitioner Family
DX: M51.16 Intervertebral disc disorders with radiculopathy, lumbar region (principal); M19.012 Primary osteoarthritis, left shoulder; M17.12 Unilateral primary osteoarthritis, left knee
CPT/HCPCS: 99212; G0463

== ENCOUNTER → 2022-07-09 12:31 | Outpatient (CLI) | payer MEDICARE, SELFPAY ==
--- NOTE | 2022-07-09 12:42 | XR_ITS ---
FINAL REPORT CLINICAL HISTORY: LT SHOULDER PAIN COMPARISON: 04/15/2020 FINDINGS: LEFT SHOULDER 3 views of the left shoulder were obtained. There is no acute fracture or dislocation. There are moderate degenerative changes of the acromioclavicular joint with calcifications, largest seen superiorly, similar to prior exam. Mild glenohumeral degenerative changes are noted. There are postoperative changes of the lower cervical spine. Soft tissues are unremarkable. IMPRESSION: No acute bony abnormality. Reviewed, Interpreted and Dictated by Lorne Lanier III, MD Transcribed by Suzette Cardenas Authenticated and [facility]
== END ==
LOC: RAD 12:32
PROVIDERS: PCP Nurse Practitioner Family; Visit Provider Nurse Practitioner Family
DX: M25.512 Pain in left shoulder (principal)
CPT/HCPCS: 73030

== ENCOUNTER → 2022-07-16 13:22 | Outpatient (POV) | payer MEDICARE, SELFPAY ==
[2022-07-16 14:07] VITALS: BP 176/100; PULSE 78; RESP 18; TEMP 37.1; O2SAT 97; BMI 22.8
--- NOTE | 2022-07-16 14:11 | EXP.PAIN.SOA ---
[facility] Pain Management SOAP Note Subjective:: Patient is a pleasant 72-year-old male who presents today for follow-up. We are currently treating the patient for osteoarthritis of his left shoulder and left knee, degenerative disc disease of lumbar spine with lumbar radiculopathy symptoms. Today he rates his pain a 5 out of 10. He states it is primarily in his left shoulder, low back and hands. Patient states this is a achy, sore sensation that is worse with increased activity. Patient denies any new trauma or injury. He states this is the same pain he has been experiencing for years. Patient states his hands do not grasp well and he frequently drops things due to what he believes is arthritis. Patient is waiting for his orthopedic consult currently. He is managed with [place] 10 mg 4 times a day and gabapentin 800 mg 4 times a day. Patient denies any side effects from this medication. He states this medication is adequately managing his pain. Patient also uses a oil he gets from an [employer] for his left shoulder that he states does provide some improvement of his symptoms. Previously he was prescribed compounding cream however it was not covered by his insurance. His Siva is [id number] with a morphine equivalent of 40. It has been reviewed and appropriate. Review of Systems: General: No recent weight changes, no fever, no sleep disturbances Respiratory: No cough, no shortness of air, no recurring pulmonary infections Cardiovascular/peripheral vascular: No chest pain, no palpitations, no edema, no shortness of breath Gastrointestinal: No new onset incontinence, normal bowel movements reported Genitourinary: No new onset incontinence Musculoskeletal: Low back pain, left shoulder pain, bilateral hand pain Psychiatric: [Normal mood/affect] Neurological: [Denies weakness in extremities], [denies balance issues] Objective:: Physical Exam: General: Alert and oriented x3, no acute distress, pleasant and cooperative Lungs: Respirations even and unlabored, symmetrical chest expansion Eyes: PERRL Musculoskeletal: Flexion and extension of cervical, lumbar [spine] somewhat guarded secondary to pain, [antalgic gait noted] Neurological: Speech clear, no gross sensory deficit Assessment:: Osteoarthritis of left shoulder, left knee, bilateral hands, degenerative disc disease of lumbar spine with lumbar radiculopathy symptoms Plan:: Patient continues to have significant pain in his left shoulder, low back and bilateral hands. Patient is currently waiting for a Ortho consult in regards to his left shoulder pain. X-ray of his left shoulder on 07/09/2022 did show moderate degenerative changes. I will order the patient physical therapy for his left shoulder pain and bilateral hand pain. I will also refill the patient's medication of gabapentin 800 mg 4 times a day and [place] 10 mg 4 times a day and provide a 1 month supply of this medication. Patient will follow-up in 1 month. He will return to clinic in 1 month for reevaluation of symptoms and medication refill. Patient has been advised of risks of oversedation with the prescribed medication. Narcan has been offered to the patient in the event of oversedation. Patient has been advised that a family member should also be educated regarding administration of Narcan. Patient has been instructed to contact the clinic with any concerns before the next appointment. Dr. Gongora has reviewed this note and agrees with this plan of care. This note was dictated using voice recognition software and make contain errors or omissions. PFSH PFSH Social History Smoking Status: Never smoker second hand exposure: No alcohol intake: never substance use type: denies use current occupational status: retired Travel in the last 8 weeks: None housing: house caffeine: Yes
[2022-07-16 15:37] LABS: Amphetamine/Metha Screen,Urine Negative ng/ml (<1000)
[2022-07-16 15:38] LABS: Barbiturates Screen,Urine Negative ng/ml (<200)
[2022-07-16 15:39] LABS: Benzodiazepines Screen,Urine Negative ng/ml (<200)
[2022-07-16 15:40] LABS: Cannabinoid Screen,Urine Negative ng/ml (<50)
[2022-07-16 15:41] LABS: Cocaine Screen,Urine Negative ng/ml (<300)
[2022-07-16 15:42] LABS: Methadone Screen,Urine Negative ng/ml (<300)
[2022-07-16 15:43] LABS: Opiate Screen,Urine Positive ng/ml (<300); Phencyclidine Screen,Urine Negative ng/ml (<25)
[2022-07-23 15:09] LABS: Codeine Negative (Cutoff=100); Hydrocodone Positive (.); Hydromorphone Positive (.); Morphine Negative (Cutoff=100); Opiates Positive (.)
== END | disposition home or self-care (01) ==
PROVIDERS: Visit Provider Nurse Practitioner Family
DX: Z79.891 Long term (current) use of opiate analgesic (principal); M51.16 Intervertebral disc disorders with radiculopathy, lumbar region; M19.011 Primary osteoarthritis, right shoulder; M17.12 Unilateral primary osteoarthritis, left knee; M19.042 Primary osteoarthritis, left hand; M19.041 Primary osteoarthritis, right hand
CPT/HCPCS: 80305; 80361; 80365; 99212; G0463; G0480

== ENCOUNTER 2022-08-01 11:00 | Outpatient (RCR) | payer MEDICARE, SELFPAY ==
--- NOTE | 2022-07-23 15:50 | HMH.OTOPEV ---
OT Inpatient Evaluation Rehab OT Outpatient Eval Start: 07/23/22 15:31 Freq: Status: Active Protocol: Document 07/23/22 15:31 [email or web address] (Rec: 07/23/22 15:[id number] E-signed By Joceline Shaw, OT Outpatient Therapy Subjective History Subjective History Pt is a 72 year old male who reports to therapy for initial evaluation to left shoulder and bilateral hands. [facility] and bilateral hand pain. Pt does show moderate degenerative changes at left shoulder (x-ray report on 07/09). Pt explains his shoulder has been hurting him since 1994 . He does not recall a specific injury to the shoulder to initiate pain. However, he did fall ~ 1 week ago onto shoulder. He explains since this fall he has had an increase in pain at shoulder. He also complains of pain/soreness in both hands . 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 He has difficulty holding objects or picking up small objects. He also has numbness in all his finger tips. Pt is right hand dominant. Pt does go to pain management for continued treatment of chronic pain. Pt also demonstrates with a significant decline in AROM and strength at left shoulder. Pt will be seen twice a week in order to address all deficits. Current 9 hole peg test results: Right hand: 47 seconds Left hand: 43 seconds 9 Hole Peg test STG Right hand: 40 seconds Left hand 40 seconds
== END 2022-08-01 11:05 | disposition home or self-care (01) ==
LOC: OT 11:00
PROVIDERS: PCP Nurse Practitioner Family; Visit Provider Nurse Practitioner Family
DX: M25.512 Pain in left shoulder (principal); M79.642 Pain in left hand; M79.641 Pain in right hand
CPT/HCPCS: 97010; 97014; 97110; 97140; 97166; G0283

== ENCOUNTER 2022-08-07 14:44 | Emergency (ER) | payer MEDICARE, SELFPAY ==
--- NOTE | 2022-08-07 14:46 | XR_ITS ---
FINAL REPORT CLINICAL HISTORY: Pt fell x 1 day ago, pain @ RT [facility]. Pain w inspiration FINDINGS: 3 views of the right ribs were obtained. There is mild irregularity of the right 8th rib end. There is no pleural fluid collection or pneumothorax. A single view of the chest demonstrates no acute cardiopulmonary process. IMPRESSION: Mild irregularity of the right 8th rib end. Nondisplaced fracture cannot be excluded. No pneumothorax. Reviewed, Interpreted and Dictated by Lorne Lanier III, MD Transcribed by Cirilo Bedolla Authenticated and [facility]
[2022-08-07 15:10] VITALS: BP 126/76; PULSE 67; RESP 19; TEMP 37; O2SAT 97; BMI 23.6
--- NOTE | 2022-08-07 15:41 | EXP.UTC ---
Discharge Plan Disposition Patient Disposition: Home, Self-Care Condition: Good Prescriptions Prescriptions: No Action omeprazole 40 MG capsule,delayed release(DR/EC) 40 mg PO DAILY simvastatin 20 MG tablet 20 mg PO HS potassium chloride 20 MEQ tablet extended release 20 meq PO DAILY hydrocodone-acetaminophen 1 EACH tablet 1 tab PO QID Qty: 120 0RF gabapentin 800 MG tablet 800 mg PO QID Qty: 120 0RF Referrals Follow up/Referrals: Senia Espinoza APRN [Primary Care Provider] - See instructions Activity Restrictions/Add. Instructions Additional Instructions/Restrictions: will call with rib x-ray results Clinical Impressions Clinical Impression: Rib injury Instructions Patient Instructions: DI for Rib Contusion [place]charge ED [place] Mustafa [facility] [place] [place] General Stated complaint: Fell 08/06 @home hit RT side rib pain Mode of Arrival: Ambulatory Source of Information: Patient Limitations: No Limitations Time Seen by Provider: 08/07/22 15:40 Description of Symptoms (Recalled from Triage Doc. by RN): PATIENT STATES HE FELL LAST NIGHT AND LANDED ON RIGHT SIDE, C/O PAIN TO RIB AREA HEENT Symptoms (Recalled from RN notes): No Resp Symptoms (Recalled from RN notes): No Skin Symptoms (Recalled from RN notes): No MS Symptoms (Recalled from RN notes): Yes Functional Status (Recalled from RN notes): WNL History of Present Illness Provider Complaint: Pt relates that he fell last night and landed on his right side. He states that he feels like he must have broken a rib as he is hurting so bad. He states that he takes pain medication regularly for his back. Related Data Home Medications Medication Instructions Recorded Confirmed omeprazole 40 mg capsule,delayed 40 mg PO DAILY GERD 07/31/19 07/16/22 release potassium chloride 20 mEq 20 meq PO DAILY Supplement 07/31/19 07/16/22 tablet,extended release simvastatin 20 mg tablet 20 mg PO HS Cholesterol 07/31/19 07/16/22 Previous Rx's Medication Instructions Recorded gabapentin 800 mg tablet 800 mg PO QID nerve pain #120 tabs 07/16/22 hydrocodone 10 mg-acetaminophen 1 tab PO QID Pain #120 tabs 07/16/22 325 mg tablet Allergies Allergy/AdvReac Type Severity Reaction Status Date / Time acetaminophen [From PERCOCET] Allergy Severe S-SWELLS-OR Verified 02/16/22 09:13 AL/THROAT oxycodone [From PERCOCET] Allergy Severe S-SWELLS-OR Verified 02/16/22 09:13 AL/THROAT Worker's Comp Is this a Worker's Comp case?: No PFSH PFSH Medical History (Updated 08/07/22 @ 16:04 by Joelle Mustafa APRN) Asthma BPH (benign prostatic hyperplasia) Hypertension Surgical History (Updated 08/07/22 @ 15:22 by Marina Chris RN) History of back surgery History of elbow surgery History of splenectomy History of surgery on lower extremity Social History (Updated 08/07/22 @ 15:23 by Marina Chris RN) Smoking Status: Never smoker second hand exposure: No alcohol intake: never substance use type: denies use current occupational status: retired Travel in the last 8 weeks: None housing: house caffeine: Yes ROS Obtained: Yes All systems reviewed & no additional complaints except as documented Constitutional Constitutional: Reports system reviewed and no additional complaints, except as documented Eyes Eyes: Reports system reviewed and no additional complaints, except as documented ENT Ears, Nose, Mouth, and Throat: Reports system reviewed and no additional complaints, except as documented Cardiovascular Cardiovascular: Reports system reviewed and no additional complaints, except as documented Respiratory Respiratory: Reports system reviewed and no additional complaints, except as documented Gastrointestinal Gastrointestingal: Reports system reviewed and no additional complaints, except as documented Genitourinary Male Genitourinary: Reports system reviewed and no additional complaints, except
[2022-08-07 16:03] VITALS: BP 126/76; PULSE 67; RESP 19; TEMP 37; O2SAT 97
== END 2022-08-07 16:11 | disposition home or self-care (01) ==
PROVIDERS: Emergency Provider Nurse Practitioner Family; PCP Nurse Practitioner Family
DX: S29.9XXA Unspecified injury of thorax, initial encounter (principal); W19.XXXA Unspecified fall, initial encounter; Z79.899 Other long term (current) drug therapy; Z88.6 Allergy status to analgesic agent; J45.909 Unspecified asthma, uncomplicated; N40.0 Benign prostatic hyperplasia without lower urinary tract symptoms; I10 Essential (primary) hypertension
CPT/HCPCS: 71101; 99212; G0463

== ENCOUNTER → 2022-08-13 11:49 | Outpatient (POV) | payer MEDICARE, SELFPAY ==
[2022-08-13 12:08] VITALS: BP 190/100; PULSE 77; RESP 18; TEMP 36.6; O2SAT 97; BMI 23.6
--- NOTE | 2022-08-13 12:36 | EXP.PAIN.SOA ---
[facility] Pain Management SOAP Note Subjective:: Patient is a pleasant 72-year-old male who presents today for follow-up. We are currently treating the patient for degenerative disc disease of lumbar spine with lumbar radiculopathy symptoms, osteoarthritis left shoulder and left knee. Today he rates his pain a 4 out of 10. He states the pain is primarily in his shoulder low back hands and ribs. Patient states he did have a recent rib fracture that has caused additional pain. Patient denies any other injuries. Patient states he did go to physical therapy for 1 visit however he was unable to continue to do this due to his rib fracture and unable to use both arms for exercises. Patient is currently managed with [place] 10 mg 4 times a day and gabapentin 800 mg 4 times a day. Patient denies any side effects from this medication. He states this medication does help manage his pain. He does also use an oil from an [employer] for some of his shoulder pain. Patient has been prescribed compounding cream in the past however it was not covered by his insurance. His Siva is [id number]. It has been reviewed and appropriate. Review of Systems: General: No recent weight changes, no fever, no sleep disturbances Respiratory: No cough, no shortness of air, no recurring pulmonary infections Cardiovascular/peripheral vascular: No chest pain, no palpitations, no edema, no shortness of breath Gastrointestinal: No new onset incontinence, normal bowel movements reported Genitourinary: No new onset incontinence Musculoskeletal: Left shoulder, left knee pain, low back pain, right rib pain Psychiatric: [Normal mood/affect] Neurological: [Denies weakness in extremities], [denies balance issues] Objective:: Physical Exam: General: Alert and oriented x3, no acute distress, pleasant and cooperative Lungs: Respirations even and unlabored, symmetrical chest expansion Eyes: PERRL Musculoskeletal: Flexion and extension of thoracic, lumbar [spine] somewhat guarded secondary to pain, [antalgic gait noted] Neurological: Speech clear, no gross sensory deficit Assessment:: Degenerative disc disease of lumbar spine with lumbar radiculopathy symptoms, osteoarthritis left shoulder and left knee Plan:: Patient continues to have significant pain in his low back as well as his shoulder and knee and ribs on the right side. Patient had limited range of motion of thoracic and lumbar spine during today's visit. I will refill the patient's gabapentin 800 mg 4 times a day and [place] 10 mg 4 times a day and provide a 1 month supply of this medication. I will also order the patient a muscle relaxer, tizanidine 4 mg at night and provide a 1 month supply of this medication. Patient will return to clinic in 1 month for reevaluation of symptoms. Patient has been advised of risks of oversedation with the prescribed medication. Narcan has been offered to the patient in the event of oversedation. Patient has been advised that a family member should also be educated regarding administration of Narcan. Patient has been instructed to contact the clinic with any concerns before the next appointment. Dr. Gongora has reviewed this note and agrees with this plan of care. This note was dictated using voice recognition software and make contain errors or omissions. [facility] Medical History (Updated 08/07/22 @ 16:04 by Joelle Mustafa APRN) Asthma BPH (benign prostatic hyperplasia) Hypertension Surgical History (Updated 08/07/22 @ 15:22 by Marina Chris RN) History of back surgery History of elbow surgery History of splenectomy History of surgery on lower extremity Social History (Updated 08/07/22 @ 15:23 by Marina Chris RN) Smoking Status: Never smoker second hand exposure: No alcohol intake: never substance use type: denies use current occupational status: retired Travel in the last 8 weeks: None housing: house caffeine: Yes
== END | disposition home or self-care (01) ==
PROVIDERS: PCP Nurse Practitioner Family; Visit Provider Nurse Practitioner Family
DX: M51.16 Intervertebral disc disorders with radiculopathy, lumbar region (principal); M17.12 Unilateral primary osteoarthritis, left knee; M19.012 Primary osteoarthritis, left shoulder
CPT/HCPCS: 99212; G0463

== ENCOUNTER → 2022-09-13 14:58 | Outpatient (POV) | payer MEDICARE, SELFPAY ==
[2022-09-13 15:16] VITALS: BP 141/120; PULSE 71; RESP 18; O2SAT 97; BMI 22.8
--- NOTE | 2022-09-13 15:28 | EXP.PAIN.SOA ---
[facility] Pain Management SOAP Note Subjective:: Patient is a pleasant 72-year-old male who presents today for medication refill and follow-up. We are currently treating the patient for degenerative disc disease of lumbar spine with lumbar radiculopathy symptoms, osteoarthritis left shoulder, left knee pain. Today the patient rates his pain a 4 out of 10. Patient denies any new trauma or injury. Patient denies any change in location or type of pain he experiences. Patient continues to state his pain is all in his low back that radiates into his lower extremities as well as his left shoulder his left knee and he is still recovering from a rib fracture that occurred earlier this year. Patient did go to physical therapy for 1 visit however he was unable to complete the therapy due to the worsening pain symptoms. Patient is currently managed with [place] 10 mg 4 times a day and gabapentin 800 mg 4 times a day. Patient denies any side effects from this medication. He states this medication does help his pain symptoms. His Siva is [id number]. It has been reviewed and appropriate. Review of Systems: General: No recent weight changes, no fever, no sleep disturbances Respiratory: No cough, no shortness of air, no recurring pulmonary infections Cardiovascular/peripheral vascular: No chest pain, no palpitations, no edema, no shortness of breath Gastrointestinal: No new onset incontinence, normal bowel movements reported Genitourinary: No new onset incontinence Musculoskeletal: Low back pain, left shoulder pain, left knee pain Psychiatric: [Normal mood/affect] Neurological: [Denies weakness in extremities], [denies balance issues] Objective:: Physical Exam: General: Alert and oriented x3, no acute distress, pleasant and cooperative Lungs: Respirations even and unlabored, symmetrical chest expansion Eyes: PERRL Musculoskeletal: Flexion and extension of lumbar [spine] somewhat guarded secondary to pain, [antalgic gait noted] Neurological: Speech clear, no gross sensory deficit Assessment:: Degenerative disc disease of lumbar spine with lumbar radiculopathy symptoms, osteoarthritis left shoulder, left knee pain Plan:: Patient continues to have significant pain in his low back that radiates down his lower extremities as well as his left shoulder and left knee however he is managed well with his current medication regimen. I will refill the patient's gabapentin 800 mg 4 times a day and [place] 10 mg 4 times a day and provide a 1 month supply of this medication. Patient will return to clinic in 1 month for reevaluation of symptoms, medication refill and follow-up. Patient has been advised of risks of oversedation with the prescribed medication. Narcan has been offered to the patient in the event of oversedation. Patient has been advised that a family member should also be educated regarding administration of Narcan. Patient has been instructed to contact the clinic with any concerns before the next appointment. Dr. Gongora has reviewed this note and agrees with this plan of care. This note was dictated using voice recognition software and make contain errors or omissions. [facility] Medical History (Updated 08/07/22 @ 16:04 by Joelle Mustafa APRN) Asthma BPH (benign prostatic hyperplasia) Hypertension Surgical History (Updated 08/07/22 @ 15:22 by Marina Chris RN) History of back surgery History of elbow surgery History of splenectomy History of surgery on lower extremity Social History (Updated 08/07/22 @ 15:23 by Marina Chris RN) Smoking Status: Never smoker second hand exposure: No alcohol intake: never substance use type: denies use current occupational status: other Travel in the last 8 weeks: None housing: house caffeine: Yes
== END | disposition home or self-care (01) ==
PROVIDERS: PCP Nurse Practitioner Family; Visit Provider Nurse Practitioner Family
DX: M51.16 Intervertebral disc disorders with radiculopathy, lumbar region (principal); M19.012 Primary osteoarthritis, left shoulder; M25.562 Pain in left knee
CPT/HCPCS: 99212; G0463

== ENCOUNTER → 2022-10-15 13:45 | Outpatient (POV) | payer MEDICARE, SELFPAY ==
[2022-10-15 14:07] VITALS: BP 161/87; PULSE 86; RESP 18; O2SAT 97; BMI 25.3
--- NOTE | 2022-10-15 15:39 | EXP.PAIN.SOA ---
[facility] Pain Management SOAP Note Subjective:: Patient is a pleasant 72-year-old male who is here for medication refill and follow-up. Patient is currently being treated for degenerative disc disease of lumbar spine with lumbar radiculopathy symptoms, osteoarthritis of the left shoulder and left knee. Patient is being managed with gabapentin 800 mg 4 times a day and [place] 10 mg 4 times a day. Patient denies any side effects from the medications. Patient denies any changes to the location and type of pain. Patient states that this is adequately helping manage their pain. Rates pain as a 6 out of 10. [facility] [place] number [id number] with an active morphine equivalent 40. Drug screens have been reviewed and appropriate. Review of Systems: General: No recent weight changes, no fever, no sleep disturbances Respiratory: No cough, no shortness of air, no recurring pulmonary infections Cardiovascular/peripheral vascular: No chest pain, no palpitations, no edema, no shortness of breath Gastrointestinal: No new onset incontinence, normal bowel movements reported Genitourinary: No new onset incontinence Musculoskeletal: Low back pain Psychiatric: [Normal mood/affect] Neurological: [Denies weakness in extremities], [denies balance issues] Objective:: Physical Exam: General: Alert and oriented x3, no acute distress, pleasant and cooperative Lungs: Respirations even and unlabored, symmetrical chest expansion Eyes: PERRL Musculoskeletal: Flexion and extension of lumbar [spine] somewhat guarded secondary to pain, [antalgic gait noted] Limited range of motion of the left shoulder and left knee secondary to pain; Neurological: Speech clear, no gross sensory deficit Assessment:: Degenerative disc disease of lumbar spine with lumbar radiculopathy symptoms, osteoarthritis of the left shoulder and left knee Plan:: We will continue the patient's [place] 10 mg 4 times a day and gabapentin 800 mg 4 times a day. We will provide the patient with 1 month of refills. We would like to see the patient back in 1 month for follow-up and reevaluation of chronic pain syndrome. Patient has been advised of risks of oversedation with the prescribed medication. Narcan has been offered to the patient in the event of oversedation. Patient has been advised that a family member should also be educated regarding administration of Narcan. Patient has been instructed to contact the clinic with any concerns before the next appointment. Dr. Gongora has reviewed this note and agrees with this plan of care. This note was dictated using voice recognition software and make contain errors or omissions. [facility] Disclaimer: The information contained in this section may have been updated after the patient was seen, as this information can be updated by other users. Medical History (Updated 08/07/22 @ 16:04 by Joelle Mustafa APRN) Asthma BPH (benign prostatic hyperplasia) Hypertension Surgical History (Updated 08/07/22 @ 15:22 by Marina Chris RN) History of back surgery History of elbow surgery History of splenectomy History of surgery on lower extremity Social History (Updated 08/07/22 @ 15:23 by Marina Chris, CINDI) Smoking Status: Never smoker second hand exposure: No alcohol intake: never substance use type: denies use current occupational status: other Travel in the last 8 weeks: None housing: house caffeine: Yes
== END | disposition home or self-care (01) ==
PROVIDERS: PCP Nurse Practitioner Family; Visit Provider Nurse Practitioner Family
DX: M51.16 Intervertebral disc disorders with radiculopathy, lumbar region (principal); M17.12 Unilateral primary osteoarthritis, left knee
CPT/HCPCS: 99212; G0463

== ENCOUNTER → 2022-10-26 16:13 | Outpatient (CLI) | payer MEDICARE, SELFPAY ==
[2022-10-26 16:47] LABS: Coronavirus 19, PCR Not Detected (NotDetected); Influenza A, PCR Not Detected (NotDetected); Influenza B, PCR Not Detected (NotDetected)
== END ==
PROVIDERS: PCP Nurse Practitioner Family; Visit Provider Nurse Practitioner Family
DX: R05.1 Acute cough (principal)
CPT/HCPCS: C9803; U0003; U0005

== ENCOUNTER → 2022-11-14 13:39 | Outpatient (POV) | payer MEDICARE, SELFPAY ==
[2022-11-14 14:46] VITALS: BP 172/91; PULSE 70; RESP 18; O2SAT 97; BMI 22.6
--- NOTE | 2022-11-14 15:11 | EXP.PAIN.SOA ---
[facility] Pain Management SOAP Note Subjective:: Patient is a pleasant 72-year-old male who presents today for medication refill and follow-up. We are currently treating the patient for degenerative disc disease of lumbar spine with lumbar radiculopathy symptoms, osteoarthritis left shoulder and left knee. Today he rates his pain a 4 out of 10. Patient denies any new trauma or injury. Patient denies any change to the location or type of pain he experiences. Patient is currently managed with gabapentin 800 mg 4 times a day and [place] 10 mg 4 times a day. Patient denies any side effects from this medication. He states this medication does adequately manage his pain symptoms. He is requesting refill at today's visit. His Siva is [id number]. Its been reviewed and appropriate. Review of Systems: General: No recent weight changes, no fever, no sleep disturbances Respiratory: No cough, no shortness of air, no recurring pulmonary infections Cardiovascular/peripheral vascular: No chest pain, no palpitations, no edema, no shortness of breath Gastrointestinal: No new onset incontinence, normal bowel movements reported Genitourinary: No new onset incontinence Musculoskeletal: Low back pain Psychiatric: [Normal mood/affect] Neurological: [Denies weakness in extremities], [denies balance issues] Objective:: Physical Exam: General: Alert and oriented x3, no acute distress, pleasant and cooperative Lungs: Respirations even and unlabored, symmetrical chest expansion Eyes: PERRL Musculoskeletal: Flexion and extension of lumbar [spine] somewhat guarded secondary to pain, [antalgic gait noted] Neurological: Speech clear, no gross sensory deficit ORT score updated with low risk Assessment:: Degenerative disc disease of lumbar spine with lumbar radiculopathy symptoms, osteoarthritis left shoulder and left knee Plan:: Patient continues to experience significant pain in his low back with radiating symptoms into his lower extremities however he is doing well with his current medication regimen. I will refill his gabapentin 800 mg 4 times a day and [place] 10 mg 4 times a day and provide a 1 month supply of this medication. Patient will return to clinic in 1 month for reevaluation of symptoms, medication refill and follow-up. Patient has been advised of risks of oversedation with the prescribed medication. Narcan has been offered to the patient in the event of oversedation. Patient has been advised that a family member should also be educated regarding administration of Narcan. Patient has been instructed to contact the clinic with any concerns before the next appointment. Dr. Gongora has reviewed this note and agrees with this plan of care. This note was dictated using voice recognition software and make contain errors or omissions. [facility] Disclaimer: The information contained in this section may have been updated after the patient was seen, as this information can be updated by other users. Medical History (Updated 08/07/22 @ 16:04 by Joelle Mustafa APRN) Asthma BPH (benign prostatic hyperplasia) Hypertension Surgical History (Updated 08/07/22 @ 15:22 by Marina Chris RN) History of back surgery History of elbow surgery History of splenectomy History of surgery on lower extremity Social History (Updated 08/07/22 @ 15:23 by Marina Chris RN) Smoking Status: Never smoker second hand exposure: No alcohol intake: never substance use type: denies use current occupational status: other Travel in the last 8 weeks: None housing: house caffeine: Yes
== END | disposition home or self-care (01) ==
PROVIDERS: PCP Nurse Practitioner Family; Visit Provider Nurse Practitioner Family
DX: M51.16 Intervertebral disc disorders with radiculopathy, lumbar region (principal); M17.12 Unilateral primary osteoarthritis, left knee; M19.012 Primary osteoarthritis, left shoulder
CPT/HCPCS: 99212; G0463

== ENCOUNTER 2022-12-07 18:53 | Emergency (ER) | payer MEDICARE, SELFPAY ==
--- NOTE | 2022-12-07 19:04 | EXP.UTC ---
Discharge Plan Disposition Patient Disposition: Home, Self-Care Condition: Fair Prescriptions Prescriptions: New prednisone [prednisone] 20 mg tablet 20 mg PO BID 5 Days Qty: 10 0RF doxycycline monohydrate 100 mg tablet 100 mg PO BID 10 Days Qty: 20 0RF dextromethorphan-guaifenesin [Mucinex DM] 60-1,200 mg tablet extended release 12 hr 1 tab PO BID Qty: 20 0RF No Action omeprazole 40 MG capsule,delayed release(DR/EC) 40 mg PO DAILY simvastatin 20 MG tablet 20 mg PO HS potassium chloride 20 MEQ tablet extended release 20 meq PO DAILY tizanidine [Zanaflex] 4 mg tablet 4 mg PO HS hydrocodone-acetaminophen 1 EACH tablet 1 tab PO QID Qty: 120 0RF gabapentin 800 MG tablet 800 mg PO QID Qty: 120 0RF Referrals Follow up/Referrals: Rodríguez Lagos MD [Primary Care Provider] - See instructions Clinical Impressions Clinical Impression: Acute exacerbation of chronic obstructive pulmonary disease Discharge ED Provider: Latasha Reynolds [facility] [place] H[place] General Stated complaint: weakness congestion,HOLLEY runny nose Time Seen by Provider: 12/07/22 19:37 History of Present Illness Provider Complaint: Patient states has been feeling poorly for about a week. No fever, but weak, no appetite. History of COPD. Using inhalers. C/O ear pain, hoarseness, productive cough. No vomiting or diarrhea. Onset (ago): week(s) (1) Location: chest Relieving factors: none Exacerbating factors: none Associated symptoms: cough, loss of appetite, malaise and shortness of breath Treatments prior to arrival: none Related Data Home Medications Medication Instructions Recorded Confirmed omeprazole 40 mg capsule,delayed 40 mg PO DAILY GERD 07/31/19 11/14/22 release potassium chloride 20 mEq 20 meq PO DAILY Supplement 07/31/19 11/14/22 tablet,extended release simvastatin 20 mg tablet 20 mg PO HS Cholesterol 07/31/19 11/14/22 tizanidine 4 mg tablet (Zanaflex) 4 mg PO HS MUSCLES 09/13/22 11/14/22 Previous Rx's Medication Instructions Recorded gabapentin 800 mg tablet 800 mg PO QID nerve pain #120 tabs 11/14/22 hydrocodone 10 mg-acetaminophen 1 tab PO QID Pain #120 tabs 11/14/22 325 mg tablet dextromethorphan-guaifenesin ER 60 1 tab PO BID #20 tabs 12/07/22 mg-1,200 mg tab,extend release,12hr (Mucinex DM) doxycycline monohydrate 100 mg 100 mg PO BID 10 days #20 tabs 12/07/22 tablet prednisone 20 mg tablet 20 mg PO BID 5 days #10 tabs 12/07/22 Allergies Allergy/AdvReac Type Severity Reaction Status Date / Time acetaminophen [From PERCOCET] Allergy Severe S-SWELLS-OR Verified 12/07/22 19:32 AL/THROAT oxycodone [From PERCOCET] Allergy Severe S-SWELLS-OR Verified 12/07/22 19:32 AL/THROAT PFSH PFSH Disclaimer: The information contained in this section may have been updated after the patient was seen, as this information can be updated by other users. Medical History (Updated 12/07/22 @ 19:47 by MORGAN Ortega) Asthma BPH (benign prostatic hyperplasia) Hypertension Surgical History History of back surgery History of elbow surgery History of splenectomy History of surgery on lower extremity Social History Smoking Status: Never smoker second hand exposure: No alcohol intake: never substance use type: denies use current occupational status: other Travel in the last 8 weeks: None housing: house caffeine: Yes ROS Obtained: Yes All systems reviewed & no additional complaints except as documented Constitutional Constitutional: Reports body ache, Reports chills, Reports malaise and Reports weakness ENT Ears, Nose, Mouth, and Throat: Reports otalgia and Reports sore throat Respiratory Respiratory: Reports chest congestion and Reports cough Neurologic Neurologic: Reports weakness Physical Exam General General appearance: kobe
[2022-12-07 19:25] VITALS: BP 133/76; PULSE 66; RESP 20; TEMP 37.3; O2SAT 95; BMI 25.0
[2022-12-07 20:11] VITALS: BP 133/76; PULSE 66; RESP 20; TEMP 37.3; O2SAT 95
== END 2022-12-07 20:10 | disposition home or self-care (01) ==
PROVIDERS: Emergency Provider Physician Assistant; PCP Family Medicine
DX: J44.1 Chronic obstructive pulmonary disease with (acute) exacerbation (principal)
CPT/HCPCS: 96372; 99212; 99213; G0463; J0696

== ENCOUNTER → 2022-12-20 14:38 | Outpatient (POV) | payer MEDICARE, SELFPAY ==
--- NOTE | 2022-12-20 14:56 | EXP.PAIN.SOA ---
[facility] Pain Management SOAP Note Subjective:: Patient is a pleasant 72-year-old male who presents today for medication refill and follow-up. We are currently treating the patient for degenerative disc disease of lumbar spine with lumbar radiculopathy symptoms, osteoarthritis left shoulder and left knee. Today he rates his pain a 5 out of 10. Patient denies any new trauma or injury. Patient denies any change location or type of pain he experiences. Patient states he does continue to have pain in his low back along with his shoulder and knee. Patient does describe this as a aching, throbbing sensation that is worse with increased activity. Patient is currently managed with gabapentin 800 mg 4 times a day and [place] 10 mg 4 times a day. Patient denies any side effects from these medications. He is requesting a refill at today's visit. His Siva is [id number]. Its been reviewed and appropriate. Review of Systems: General: No recent weight changes, no fever, no sleep disturbances Respiratory: No cough, no shortness of air, no recurring pulmonary infections Cardiovascular/peripheral vascular: No chest pain, no palpitations, no edema, no shortness of breath Gastrointestinal: No new onset incontinence, normal bowel movements reported Genitourinary: No new onset incontinence Musculoskeletal: Low back pain, shoulder pain, knee pain Psychiatric: [Normal mood/affect] Neurological: [Denies weakness in extremities], [denies balance issues] Objective:: Physical Exam: General: Alert and oriented x3, no acute distress, pleasant and cooperative Lungs: Respirations even and unlabored, symmetrical chest expansion Eyes: PERRL Musculoskeletal: Flexion and extension of lumbar [spine] somewhat guarded secondary to pain, [antalgic gait noted] Neurological: Speech clear, no gross sensory deficit Assessment:: Degenerative disc disease of lumbar spine with lumbar radiculopathy symptoms, osteoarthritis left shoulder and left knee Plan:: Patient continues to experience significant pain in his low back with limited range of motion as well as his left shoulder and left knee. I will refill the patient's [place] 10 mg 4 times a day and gabapentin 800 mg 4 times a day and provide a 1 month supply of this medication. I will change his tizanidine 4 mg at bedtime to methocarbamol 500 mg at bedtime and provide a 1 month supply of this medication. I have counseled the patient to stop taking tizanidine while taking the new muscle relaxer. Patient will return to clinic in 1 month for reevaluation of symptoms, medication refill and follow-up. Patient has been advised of risks of oversedation with the prescribed medication. Narcan has been offered to the patient in the event of oversedation. Patient has been advised that a family member should also be educated regarding administration of Narcan. Patient has been instructed to contact the clinic with any concerns before the next appointment. Dr. Gongora has reviewed this note and agrees with this plan of care. This note was dictated using voice recognition software and make contain errors or omissions. [facility] Disclaimer: The information contained in this section may have been updated after the patient was seen, as this information can be updated by other users. Medical History (Updated 12/07/22 @ 19:47 by MORGAN Ortega) Asthma BPH (benign prostatic hyperplasia) Hypertension Surgical History History of back surgery History of elbow surgery History of splenectomy History of surgery on lower extremity Social History Smoking Status: Never smoker second hand exposure: No alcohol intake: never substance use type: denies use current occupational status: retired Travel in the last 8 weeks: None housing: house caffeine: Yes
[2022-12-20 14:57] VITALS: BP 148/85; PULSE 60; RESP 18; O2SAT 98; BMI 22.8
== END | disposition home or self-care (01) ==
PROVIDERS: PCP Nurse Practitioner Family; Visit Provider Nurse Practitioner Family
DX: M51.16 Intervertebral disc disorders with radiculopathy, lumbar region (principal); M25.512 Pain in left shoulder; M25.562 Pain in left knee; Z79.899 Other long term (current) drug therapy
CPT/HCPCS: 99212; G0463

== ENCOUNTER → 2022-12-20 15:14 | Outpatient (CLI) | payer MEDICARE, SELFPAY ==
[2022-12-20 16:14] LABS: Amphetamine/Metha Screen,Urine Negative ng/ml (<1000)
[2022-12-20 16:15] LABS: Benzodiazepines Screen,Urine Negative ng/ml (<200); Methadone Screen,Urine Negative ng/ml (<300)
[2022-12-20 16:16] LABS: Cannabinoid Screen,Urine Negative ng/ml (<50)
[2022-12-20 16:17] LABS: Cocaine Screen,Urine Negative ng/ml (<300); Opiate Screen,Urine Positive ng/ml (<300)
[2022-12-20 16:18] LABS: Phencyclidine Screen,Urine Negative ng/ml (<25)
[2022-12-20 16:20] LABS: Barbiturates Screen,Urine Negative ng/ml (<200)
[2022-12-26 16:13] LABS: Codeine Negative (Cutoff=100); Hydrocodone Positive (.); Hydromorphone Positive (.); Morphine Negative (Cutoff=100); Opiates Positive (.)
== END ==
PROVIDERS: PCP Nurse Practitioner Family; Visit Provider Nurse Practitioner Family
DX: Z79.891 Long term (current) use of opiate analgesic (principal)
CPT/HCPCS: 80305; 80361; 80365; 99212; G0463; G0480

== ENCOUNTER 2023-01-10 18:20 | Emergency (ER) | payer MEDICARE, SELFPAY ==
[2023-01-10] VITALS (8 sets, daily range): BP systolic 134–164; BP diastolic 78–91; PULSE 57–74; RESP 17–20; TEMP 36.5–36.6; O2SAT 96–100; BMI 24.3; BMI 24.2
--- NOTE | 2023-01-10 18:25 | EXP.UTC ---
Discharge Plan Disposition Patient Disposition: Home, Self-Care Prescriptions Prescriptions: No Action methocarbamol 500 mg tablet 500 mg PO HS Qty: 30 0RF hydrocodone-acetaminophen 1 EACH tablet 1 tab PO QID Qty: 120 0RF gabapentin 800 MG tablet 800 mg PO QID Qty: 120 0RF Referrals Follow up/Referrals: Senia Espinoza APRN [Primary Care Provider] - See instructions Clinical Impressions Clinical Impression: Acute exacerbation of chronic low back pain, Neck pain Instructions Patient Instructions: DI for Low Back Pain Discharge ED Provider: Gerard (ED)Antonino [facility] General Chief complaint: Back Pain/Injury Stated complaint: AO 01/09/23 1900 fell at home back pain Time Seen by Provider: 01/10/23 18:55 History of Present Illness Provider Complaint: He states that (yesterday) he was getting a metal bandsaw down in his shop when it fell and knocked him backwards. This caused him to fall backwards and land on his lower back and bottom. He has had bilateral hip pain, pelvic pain, low back pain, middle back pain and neck pain since then. He states that he feels weak in his legs when he tries to walk. He has an extensive history of back, hip and neck surgeries. Related Data Previous Rx's Medication Instructions Recorded gabapentin 800 mg tablet 800 mg PO QID nerve pain #120 tabs 01/17/23 hydrocodone 10 mg-acetaminophen 1 tab PO QID Pain #120 tabs 01/17/23 325 mg tablet methocarbamol 500 mg tablet 500 mg PO HS . #30 tabs 01/17/23 Allergies Allergy/AdvReac Type Severity Reaction Status Date / Time acetaminophen [From PERCOCET] Allergy Severe S-SWELLS-OR Verified 01/10/23 18:53 AL/THROAT oxycodone [From PERCOCET] Allergy Severe S-SWELLS-OR Verified 01/10/23 18:53 AL/THROAT [facility] Disclaimer: The information contained in this section may have been updated after the patient was seen, as this information can be updated by other users. Medical History Asthma BPH (benign prostatic hyperplasia) Hypertension Surgical History History of back surgery History of elbow surgery History of splenectomy History of surgery on lower extremity Social History Smoking Status: Never smoker second hand exposure: No alcohol intake: never substance use type: denies use current occupational status: other Travel in the last 8 weeks: None housing: house caffeine: Yes ROS Obtained: Yes All systems reviewed & no additional complaints except as documented Constitutional Constitutional: Denies chills and Denies fever(s) Eyes Eyes: Denies eye discharge ENT Ears, Nose, Mouth, and Throat: Denies dizziness, Denies otalgia and Denies sore throat Cardiovascular Cardiovascular: Denies chest pain Respiratory Respiratory: Denies shortness of breath, Denies chest congestion, Denies cough, Denies stridor and Denies wheezing Gastrointestinal Gastrointestingal: Denies nausea or vomiting Musculoskeletal Musculoskeletal: Reports as per HPI Integumentary/Breasts Skin/Breast: Denies rash Neurologic Neurologic: Denies dizziness and Denies paresthesias Allergic/Immunologic Allergic/Immunologic: Denies wheezing Physical Exam General General appearance: alert and in no apparent distress Head Head exam: atraumatic, normocephalic and normal inspection Eye Eye exam: Present normal appearance, PERRL and EOMI ENT ENT exam: Present normal exam, normal oropharynx, mucous membranes moist, TM's normal bilaterally and normal external ear exam Neck Neck exam: Present normal inspection, full ROM and trachea midline; Absent meningismus or lymphadenopathy Chest Chest inspection: Present normal inspection and symmetric chest wall rise; Absent tenderness Respiratory Respiratory exam: Present normal lung sounds bilaterally; Absent respiratory distress
--- NOTE | 2023-01-10 18:31 | XR_ITS ---
PROCEDURE INFORMATION: Exam: XR Right Hip Exam date and time: 01/10/2023 6:55 PM Age: 72 years old Clinical indication: Hip pain; Bilateral; Patient HX: Patient fell in his garage. TECHNIQUE: Imaging protocol: Radiologic exam of the right hip. Views: 2 or 3 views hip with pelvis when performed. COMPARISON: CT ABDOMEN PELVIS WO CON 06/03/2021 3:51 AM FINDINGS: Bones/joints: Unremarkable. No acute fracture. Previous internal fixation left hip and sacrum. Soft tissues: Unremarkable. IMPRESSION: No acute findings.
--- NOTE | 2023-01-10 18:31 | XR_ITS ---
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 Views: 2 or 3 views. COMPARISON: MR CERVICAL SPINE WO CON 04/21/2020 11:20 AM FINDINGS: Bones/joints: Anterior fusion C5-C6. Adjacent level disc narrowing C4-C5. Adjacent level disc narrowing C6-C7. Soft tissues: Unremarkable. IMPRESSION: 1. Previous internal fixation with anterior fusion C-spine C5-C6. 2. Degenerative changes. No acute traumatic injury.
--- NOTE | 2023-01-10 18:31 | XR_ITS ---
PROCEDURE INFORMATION: Exam: XR Lumbosacral Spine Exam date and time: 01/10/2023 6:47 PM Age: 72 years old Clinical indication: Low back pain; Patient HX: Patient fell in garage. TECHNIQUE: Imaging protocol: Radiologic exam of the lumbosacral spine. Views: 2 or 3 views. COMPARISON: CT LUMBAR SPINE WO CON 06/03/2021 3:48 AM FINDINGS: Bones/joints: Internal fixation of the sacrum. Internal fixation left hip. Internal fixation of the posterior elements at L4-L5. Bony fusion L4-L5. Vacuum discs L1-L2, L2-L3, L3-L4, and L5-S1. Soft tissues: Anterior abdominal wall mesh. Vasculature: Vascular calcifications. IMPRESSION: No acute traumatic abnormality identified.
--- NOTE | 2023-01-10 18:31 | XR_ITS ---
PROCEDURE INFORMATION: Exam: XR Thoracic Spine Exam date and time: 01/10/2023 6:51 PM Age: 72 years old Clinical indication: Other: Pain in thoracic spine area. Patient HX: Patient fell in his garage. TECHNIQUE: Imaging protocol: Radiologic exam of the thoracic spine. Views: 2 views. COMPARISON: CT THORACIC SPINE WO CON 06/03/2021 3:45 AM FINDINGS: Bones/joints: Normal. No acute fracture. Normal alignment. Soft tissues: Unremarkable. IMPRESSION: No acute findings.
--- NOTE | 2023-01-10 18:31 | XR_ITS ---
PROCEDURE INFORMATION: Exam: XR Left Hip Exam date and time: 01/10/2023 6:51 PM Age: 72 years old Clinical indication: Hip pain; Bilateral; Patient HX: Patient fell in his garage. TECHNIQUE: Imaging protocol: Radiologic exam of the left hip. Views: 2 or 3 views hip with pelvis when performed. COMPARISON: CT ABDOMEN PELVIS WO CON 06/03/2021 3:51 AM FINDINGS: Bones/joints: Internal fixation left femoral neck. Internal fixation sacrum. Internal fixation L4-L5 with fusion. Soft tissues: Unremarkable. Other findings: No acute findings. IMPRESSION: No acute findings.
--- NOTE | 2023-01-10 19:43 | CT_ITS ---
PROCEDURE INFORMATION: Exam: CT Abdomen And Pelvis With Contrast Exam date and time: 01/10/2023 8:53 PM Age: 72 years old Clinical indication: Injury or trauma; Fall; Blunt; Generalized; Prior surgery; Additional info: Avery fell on his abdomen TECHNIQUE: Imaging protocol: Computed tomography of the abdomen and pelvis with contrast. Radiation optimization: All CT scans at this facility use at least one of these dose optimization techniques: automated exposure control; mA and/or kV adjustment per patient size (includes targeted exams where dose is matched to clinical indication); or iterative reconstruction. Contrast material: ISOVUE; Contrast volume: 75 ml; Contrast route: IV; REPORTING DATA: Count of CT and Cardiac NM exams in prior 12 months: This patient has received 3 known CTs and 0 known cardiac nuclear medicine studies in the 12 months prior to the current study. COMPARISON: CT ABDOMEN PELVIS WO CON 06/03/2021 3:51 AM FINDINGS: Tubes, catheters and devices: None noted. Lungs: Lung bases appear clear. Heart: No significant coronary calcifications. No cardiomegaly. No significant pericardial effusion. Liver: Normal. No mass. Gallbladder and bile ducts: Normal. No calcified stones. No ductal dilation. Pancreas: Normal. No ductal dilation. Spleen: Normal. No splenomegaly. Adrenal glands: Normal. No mass. Kidneys and ureters: Right upper pole caliceal calcification nonobstructive. No hydronephrosis. Stomach and bowel: Hiatal hernia. Surgical changes at the rectosigmoid. No obstruction. No mucosal thickening. Moderate stool throughout the colon. Appendix: No evidence of appendicitis. Intraperitoneal space: Unremarkable. No free air. No significant fluid collection. Retroperitoneal space: No significant retroperitoneal inflammatory changes are noted. Vasculature: Unremarkable. No abdominal aortic aneurysm. Lymph nodes: Unremarkable. No enlarged lymph nodes. Urinary bladder: Unremarkable as visualized. Reproductive: Unremarkable as visualized. Bones/joints: Fusion L4-L5. Internal fixation left SI joint. Internal fixation left hip. No acute fracture. Soft tissues: Anterior abdominal wall mesh. IMPRESSION: No acute traumatic findings.
--- NOTE | 2023-01-10 20:11 | PC.NURSE ---
Dr. Gee speaking with pt at this time
--- NOTE | 2023-01-10 20:13 | CT_ITS ---
PROCEDURE INFORMATION: Exam: CT Thoracic Spine Without Contrast Exam date and time: 01/10/2023 8:46 PM Age: 72 years old Clinical indication: Pain in thoracic spine; Other: Back pain due to fall TECHNIQUE: Imaging protocol: Computed tomography of the thoracic spine without contrast. Radiation optimization: All CT scans at this facility use at least one of these dose optimization techniques: automated exposure control; mA and/or kV adjustment per patient size (includes targeted exams where dose is matched to clinical indication); or iterative reconstruction. REPORTING DATA: Count of CT and Cardiac NM exams in prior 12 months: This patient has received 3 known CTs and 0 known cardiac nuclear medicine studies in the 12 months prior to the current study. COMPARISON: CT THORACIC SPINE WO CON 06/03/2021 3:45 AM FINDINGS: Bones/joints: No acute fracture. Normal alignment. No significant disc bulge or herniation. No severe spinal canal stenosis. No significant neural foraminal narrowing. Soft tissues: Unremarkable. IMPRESSION: Unremarkable CT T-Spine.
--- NOTE | 2023-01-10 20:13 | CT_ITS ---
PROCEDURE INFORMATION: Exam: CT Cervical Spine Without Contrast Exam date and time: 01/10/2023 8:44 PM Age: 72 years old Clinical indication: Neck pain; Prior surgery; Surgery date: 6+ months; Additional info: Fall TECHNIQUE: Imaging protocol: Computed tomography of the cervical spine without contrast. Radiation optimization: All CT scans at this facility use at least one of these dose optimization techniques: automated exposure control; mA and/or kV adjustment per patient size (includes targeted exams where dose is matched to clinical indication); or iterative reconstruction. REPORTING DATA: Count of CT and Cardiac NM exams in prior 12 months: This patient has received 2 known CTs and 0 known cardiac nuclear medicine studies in the 12 months prior to the current study. COMPARISON: MR CERVICAL SPINE WO CON 04/21/2020 11:20 AM FINDINGS: Bones/joints: No acute fracture. Normal alignment. C2-C3: No significant disc bulge or herniation. No severe spinal canal stenosis. No significant neural foraminal narrowing. C3-C4: No significant disc bulge or herniation. No severe spinal canal stenosis. No significant neural foraminal narrowing. C4-C5: Disc space narrowing. No significant disc bulge or herniation. No severe spinal canal stenosis. No significant neural foraminal narrowing. C5-C6: Anterior fusion. No significant disc bulge or herniation. No severe spinal canal stenosis. No significant neural foraminal narrowing. C6-C7: Disc space narrowing. No significant disc bulge or herniation. No severe spinal canal stenosis. No significant neural foraminal narrowing. C7-T1: No significant disc bulge or herniation. No severe spinal canal stenosis. No significant neural foraminal narrowing. Lungs: Lung apices are normal. Soft tissues: Unremarkable. IMPRESSION: No acute traumatic findings.
--- NOTE | 2023-01-10 20:13 | CT_ITS ---
PROCEDURE INFORMATION: Exam: CT Lumbar Spine Without Contrast Exam date and time: 01/10/2023 8:49 PM Age: 72 years old Clinical indication: Low back pain; Prior surgery; Surgery date: 6+ months; Additional info: Fall TECHNIQUE: Imaging protocol: Computed tomography of the lumbar spine without contrast. Radiation optimization: All CT scans at this facility use at least one of these dose optimization techniques: automated exposure control; mA and/or kV adjustment per patient size (includes targeted exams where dose is matched to clinical indication); or iterative reconstruction. REPORTING DATA: Count of CT and Cardiac NM exams in prior 12 months: This patient has received 3 known CTs and 0 known cardiac nuclear medicine studies in the 12 months prior to the current study. COMPARISON: CT LUMBAR SPINE WO CON 06/03/2021 3:48 AM FINDINGS: Bones/joints: No acute fracture. Normal alignment. Internal fixation of the SI joints. Internal fixation posterior elements L4-L5. L1-L2: Vacuum disc. No significant disc bulge or herniation. No severe spinal canal stenosis. No significant neural foraminal narrowing. L2-L3: Vacuum disc. No significant disc bulge or herniation. No severe spinal canal stenosis. No significant neural foraminal narrowing. L3-L4: Vacuum disc. No significant disc bulge or herniation. No severe spinal canal stenosis. No significant neural foraminal narrowing. L4-L5: Fusion. L5-S1: Vacuum disc. No significant disc bulge or herniation. No severe spinal canal stenosis. No significant neural foraminal narrowing. Soft tissues: Unremarkable. IMPRESSION: No acute traumatic abnormality identified.
[2023-01-10 20:18] LABS: Basophils # 0.1 K/mm3 (0-0.2); Basophils % 0.9 % (0.1-2.0); Eosinophils # 0.3 K/mm3 (0.0-0.4); Eosinophils % 3.3 % (0.1-12.0); Hematocrit 39.6 % (42.0-52.0); Hemoglobin 12.9 g/dL (14.1-18.0); Lymphocytes # 2.6 K/mm3 (0.7-4.5); Lymphocytes % 27.5 % (10-50); Mean Corpuscular HGB Conc 32.5 g/dL (31.8-35.4); Mean Corpuscular Hemoglobin 33.3 pg (27.0-31.2); Mean Corpuscular Volume 102.4 fl (80-94); Mean Platelet Volume 7.6 fl (7.4-10.4); Monocytes # 0.6 K/mm3 (0.1-1.0); Neutrophils # 5.9 K/mm3 (1.8-7.8); Neutrophils % 62.3 % (37.0-80.0); Platelet Count 366 K/mm3 (142-424); Red Blood Count 3.87 M/mm3 (4.60-6.20); Red Cell Distribution Width 13.2 % (11.5-17.5); White Blood Count 9.4 K/mm3 (4.8-10.8)
[2023-01-10 20:22] LABS: Chloride 104 mmol/L (98-107)
[2023-01-10 20:23] LABS: Potassium 3.6 mmoL/L (3.5-5.1); Sodium 140 mmol/L (136-145)
[2023-01-10 20:25] LABS: Alanine Aminotransferase 18 U/L (12-78); Alkaline Phosphatase 82 U/L (38-126); Amylase 66 U/L (30-110); Anion Gap 8.6 mEq/L (5-15); Aspartate Amino Transferase 28 U/L (17-59); Bilirubin,Total 0.5 mg/dl (0.2-1.3); Blood Urea Nitrogen 11 mg/dl (9-20); Carbon Dioxide 31 mmol/L (22.0-30.0); Creatinine Clearance Estimated 70 mL/min (50-200); Estimated Glomerular Filt Rate 83 ml/min (>60); GFR (African American) 101 ML/MIN (>60)
[2023-01-10 20:26] LABS: Albumin Level 3.8 g/dl (3.5-5.0); Albumin/Globulin Ratio 1.4 (1.1-1.8); Calcium 8.6 mg/dl (8.4-10.2); Globulin 2.8 g/dL (1.3-3.2); Glucose 124 mg/dl (74-100); Lipase 84 U/L (23-300); Total Protein,Serum 6.6 g/dl (6.3-8.2)
[2023-01-10 21:15] LABS: Erythrocyte Sedimentation Rate 22 mm/hr (0-20)
[2023-01-10 21:29] LABS: Microscopic, Urine URINE MICROSCOPIC (MICROSCOPIC)
[2023-01-10 21:31] LABS: Appearance,Urine CLEAR (Clear); Bilirubin,Urine Negative (Negative); Blood, Urine Negative (Negative); Color,Urine YELLOW (Yellow); Glucose,Urine (UA) Negative (Negative); Ketones,Urine TRACE (Negative); Leukocyte Esterase,Urine Negative (Negative); Nitrate,Urine Negative (Negative); Protein,Urine Negative (Negative); Specific Gravity, Urine 1.025 (1.005-1.030); Urobilinogen,Urine 0.2 EU/dl (0.2)
[2023-01-10 21:46] LABS: Mucus,Urine Trace /lpf; RBC,Urine Occasional #/hpf (0-3); Squamous Epithelial Cell,Urine Occasional #/hpf (0-5); WBC,Urine Occasional #/hpf (0-3)
--- NOTE | 2023-01-10 22:26 | HMH.EDBACK ---
Discharge Plan Disposition Patient Disposition: Home, Self-Care Chief Complaint: Back Pain/Injury Prescriptions Prescriptions: No Action methocarbamol 500 mg tablet 500 mg PO HS hydrocodone-acetaminophen 1 EACH tablet 1 tab PO QID Qty: 120 0RF gabapentin 800 MG tablet 800 mg PO QID Qty: 120 0RF Referrals Follow up/Referrals: Senia Espinoza APRN [Primary Care Provider] - See instructions Clinical Impressions Clinical Impression: Acute exacerbation of chronic low back pain, Neck pain Instructions Patient Instructions: DI for Low Back Pain Discharge ED Provider: Gerard (ED),Antonino Mathews Back Pain HPI General Chief Complaint: Back Pain/Injury Stated Complaint: AO 01/09/23 1900 fell at home back pain Time Seen by Provider: 01/10/23 18:55 Mode of Arrival: Wheelchair Source of Information: Patient Limitations: Physical Limitations Description of Symptoms (Recalled from ER Triage Doc. by RN): pt to ED from [facility] after a fall yesterday while out in his shop. pt reports he was trying to move a bandsaw in his shop when he lost his balance and the bandsaw fell onto him causing him to fall onto his bottom. pt denies any head/neck injury, LOC or blood thinner at this time. pt complains of disfuse abd. pain, lower back pain and bilateral hip pain. History of Present Illness HPI Narrative: fell yesterday and injured pelvis and spine and has lower abd pain MD Complaint: back pain and other (abd pain) Onset (ago): day(s) Duration: intermittent Similar Symptoms Previously: Yes Location: lumbar spine and thoracic spine Severity: moderate Context: fall Associated symptoms: denies other symptoms Related Data Home Medications Medication Instructions Recorded Confirmed methocarbamol 500 mg tablet 500 mg PO HS . 01/10/23 01/10/23 Previous Rx's Medication Instructions Recorded gabapentin 800 mg tablet 800 mg PO QID nerve pain #120 tabs 12/20/22 hydrocodone 10 mg-acetaminophen 1 tab PO QID Pain #120 tabs 12/20/22 325 mg tablet Allergies Allergy/AdvReac Type Severity Reaction Status Date / Time acetaminophen [From PERCOCET] Allergy Severe S-SWELLS-OR Verified 01/10/23 18:53 AL/THROAT oxycodone [From PERCOCET] Allergy Severe S-SWELLS-OR Verified 01/10/23 18:53 AL/THROAT PFSH PFSH Disclaimer: The information contained in this section may have been updated after the patient was seen, as this information can be updated by other users. Medical History (Updated 01/10/23 @ 22:32 by Antonino Gee MD (ED)) Asthma BPH (benign prostatic hyperplasia) Hypertension Surgical History History of back surgery History of elbow surgery History of splenectomy History of surgery on lower extremity Social History Smoking Status: Never smoker second hand exposure: No alcohol intake: never substance use type: denies use current occupational status: retired Travel in the last 8 weeks: None housing: house caffeine: Yes ROS Obtained: Yes All systems reviewed & no additional complaints except as documented Physical Exam General General appearance: alert Head Head exam: normocephalic Eye Eye exam: Present PERRL and EOMI ENT ENT exam: Present mucous membranes moist Neck Neck exam: Present trachea midline Respiratory Respiratory exam: Present normal lung sounds bilaterally; Absent respiratory distress Cardiovascular Cardiovascular exam: Present regular rate and systolic murmur Abdominal Exam Abdominal exam: Present soft Extremities Exam Extremities exam: Present full ROM Back Exam Back exam: Present tenderness and paraspinal tenderness; Absent full ROM Neurological Exam Neurological exam: Present alert, oriented X3, CN II-XII intact and other (gcs=15); Absent motor sensory deficit Psychiatric Psychiatric exam: Present normal affect Skin Skin exam: Absent rash Medical D
== END 2023-01-10 22:50 | disposition home or self-care (01) ==
LOC: UTC 19:23 → ER 19:42
PROVIDERS: Emergency Provider Emergency Medicine; PCP Nurse Practitioner Family
DX: M54.50 Low back pain, unspecified (principal); G89.29 Other chronic pain; M54.2 Cervicalgia; W18.30XA Fall on same level, unspecified, initial encounter
CPT/HCPCS: 72040; 72070; 72100; 72125; 72128; 72131; 73502; 74177; 80053; 81001; 82150; 83690; 85025; 85651; 86140; 96374; 96375; 99285; J2405; Q9967

== ENCOUNTER → 2023-01-17 14:44 | Outpatient (POV) | payer MEDICARE, SELFPAY ==
--- NOTE | 2023-01-17 15:09 | EXP.PAIN.SOA ---
[facility] Pain Management SOAP Note Subjective:: Patient is a pleasant 72-year-old male who presents today for follow-up and medication refill. We are currently treating the patient for degenerative disc disease of lumbar spine with lumbar radiculopathy symptoms, osteoarthritis left shoulder and left knee. Today he rates his pain a 7 out of 10. He states he recently had a fall while he was working in his shop. He states he hit his leg with a saw which caused him to fall hitting his back along the left side. Patient has had multiple imaging since and did not have any fractures following this episode. He does state he continues to have pain along his low back at the left side and describes it as an aching, throbbing sensation that is worse with increased activity. He does state this is a constant and does interfere with his activities of daily living such as cooking and cleaning or even simple ambulating. Patient is currently managed with gabapentin 800 mg 4 times a day and [place] 10 mg 4 times a day. Patient denies any side effects from this medication. He is requesting a refill at today's visit. His Siva is [id number]. Its been reviewed and appropriate. Review of Systems: General: No recent weight changes, no fever, no sleep disturbances Respiratory: No cough, no shortness of air, no recurring pulmonary infections Cardiovascular/peripheral vascular: No chest pain, no palpitations, no edema, no shortness of breath Gastrointestinal: No new onset incontinence, normal bowel movements reported Genitourinary: No new onset incontinence Musculoskeletal: Low back pain Psychiatric: [Normal mood/affect] Neurological: [Denies weakness in extremities], [denies balance issues] Objective:: Physical Exam: General: Alert and oriented x3, no acute distress, pleasant and cooperative Lungs: Respirations even and unlabored, symmetrical chest expansion Eyes: PERRL Musculoskeletal: Flexion and extension of lumbar [spine] somewhat guarded secondary to pain, [antalgic gait noted] point tenderness noted along the left lumbar paraspinous muscles Neurological: Speech clear, no gross sensory deficit Assessment:: Degenerative disc disease of lumbar spine with lumbar radiculopathy symptoms, osteoarthritis left shoulder and left knee, myofascial pain of left lumbar paraspinous muscles Plan:: Patient is experiencing significant pain along his left lumbar paraspinous muscles with point tenderness and decreased range of motion. I have discussed with the patient that he may benefit from trigger point injections at these locations. Risk and benefits were discussed with the patient and he would like to proceed forward with this plan of care. I will also refill his [place] 10 mg 4 times a day and gabapentin 800 mg 4 times a day and provide a 1 month supply of this medication. Patient will be scheduled for TPI of left lumbar paraspinous muscles. Patient has been advised of risks of oversedation with the prescribed medication. Narcan has been offered to the patient in the event of oversedation. Patient has been advised that a family member should also be educated regarding administration of Narcan. Patient has been instructed to contact the clinic with any concerns before the next appointment. Dr. Gongora has reviewed this note and agrees with this plan of care. This note was dictated using voice recognition software and make contain errors or omissions. [facility] Disclaimer: The information contained in this section may have been updated after the patient was seen, as this information can be updated by other users. Medical History (Updated 01/10/23 @ 22:32 by Antonino Gee ([email or web address])MD) Asthma BPH (benign prostatic hyperplasia) Hypertension Surgical History History of back surgery History of elbow surgery History of splenectomy History of surgery on lower extremity Social History
[2023-01-17 15:23] VITALS: BP 157/89; PULSE 72; RESP 18; O2SAT 97; BMI 25.0
== END | disposition home or self-care (01) ==
PROVIDERS: PCP Nurse Practitioner Family; Visit Provider Nurse Practitioner Family
DX: M51.16 Intervertebral disc disorders with radiculopathy, lumbar region (principal); M79.18 Myalgia, other site; M17.12 Unilateral primary osteoarthritis, left knee; M19.012 Primary osteoarthritis, left shoulder
CPT/HCPCS: 99212; G0463

== ENCOUNTER 2023-01-29 11:23 | Day surgery (SDC) | payer MEDICARE, SELFPAY ==
[2023-01-29 11:36] VITALS: BP 151/79; PULSE 64; RESP 18; TEMP 37.1; O2SAT 99; BMI 22.8
[2023-01-29 11:57] VITALS: BP 177/89; PULSE 63; RESP 18; O2SAT 98
--- NOTE | 2023-01-29 11:57 | EXP.PAIN.PRO ---
Procedure Date: 01/29/23 Time: 11:50 Anesthesiologist:: Jorge Han CRNA Complications:: None Pre-procedure Diagnosis:: Myofascial pain left lumbar paraspinous muscle. Post-procedure Diagnosis:: Same. Indications for Procedure:: This patient is a very pleasant 72-year-old male that comes our clinic today for left low lumbar paraspinous muscle trigger point injections. Patient suffered a fall and has been having low left lumbar pain since. He describes the pain as constant, dull, aching. He rates his pain 7/10 Procedure Details:: Details of the procedure explained to the patient. The patient taken to procedure room placed in the sitting position. The area over the lumbar spine was cleaned using chlorhexidine as a cleansing solution. Using a 25-gauge needle and a solution of 10 cc containing 0.25% Marcaine +1% lidocaine and 40 mg of Depo-Medrol 3 separate areas over the left lumbar paraspinous muscle was injected using 3 cc at each injection site. Patient tolerated procedure without difficulty. There are no complications. Plan and Disposition:: Patient was discharged without incident.
== END 2023-01-29 11:57 | disposition home or self-care (01) ==
PROVIDERS: PCP Nurse Practitioner Family; Visit Provider Nurse Anesthetist, Certified Registered
DX: M79.18 Myalgia, other site (principal)
CPT/HCPCS: 20552; J1040

== ENCOUNTER → 2023-02-15 11:38 | Outpatient (POV) | payer MEDICARE, SELFPAY ==
--- NOTE | 2023-02-15 12:02 | EXP.PAIN.SOA ---
[facility] Pain Management SOAP Note Subjective:: This patient is a very pleasant 72-year-old male that comes our clinic today for medication refills. He is currently being managed by us with [place] 10 mg 1 p.o. 4 times daily. Gabapentin 800 mg 1 p.o. 4 times daily. Patient's main complaint is low back pain and left leg radicular symptoms. Patient describes low back pain as constant, dull, aching. He rates his pain 7/10. Patient also complains of left leg radicular symptoms. Patient is status post 3 separate lumbar surgeries. We tried several type of injections for him with minimal to no relief. His Siva #[id number] has been reviewed and appropriate. Patient does not complain of any side effects from the pain medication. Patient states the pain medication does seem to help him with his pain to some degree. Objective:: Patient is awake alert [place] x3. No acute distress. Flexion-extension lumbar spine somewhat guarded secondary to pain. Deep tendon reflexes upper lower extremities normal. Motor strength upper lower extremities normal. There is no gross sensory deficit. Gait is normal. Assessment:: Degenerative disc disease lumbar spine multilevels. Lumbar radiculopathy. Lumbar spondylosis. Lumbar postlaminectomy syndrome Plan:: I discussed with the patient regarding intrathecal pain pump management. He is going to think about this concept. We will refill his pain medications today. He will return to see us in 1 month. [facility] Disclaimer: The information contained in this section may have been updated after the patient was seen, as this information can be updated by other users. Medical History Asthma BPH (benign prostatic hyperplasia) Hypertension Surgical History History of back surgery History of elbow surgery History of splenectomy History of surgery on lower extremity Family History (Updated 01/29/23 @ 11:37 by Lilibeth Ryan RN) Other No significant family history Social History Smoking Status: Never smoker second hand exposure: No alcohol intake: never substance use type: denies use current occupational status: other Travel in the last 8 weeks: None housing: house caffeine: Yes
[2023-02-15 12:54] VITALS: BP 122/89; PULSE 64; RESP 18; O2SAT 97; BMI 23.4
== END | disposition home or self-care (01) ==
PROVIDERS: PCP Nurse Practitioner Family; Visit Provider Nurse Anesthetist, Certified Registered
DX: M51.16 Intervertebral disc disorders with radiculopathy, lumbar region (principal); M47.26 Other spondylosis with radiculopathy, lumbar region; M96.1 Postlaminectomy syndrome, not elsewhere classified
CPT/HCPCS: 99212; G0463

== ENCOUNTER 2023-02-19 16:16 | Emergency (ER) | payer MEDICARE, SELFPAY ==
[2023-02-19 18:21] VITALS: BP 119/72; PULSE 63; RESP 22; TEMP 36.8; O2SAT 100; BMI 21.8
--- NOTE | 2023-02-19 19:07 | EXP.UTC ---
Discharge Plan Disposition Patient Disposition: Home, Self-Care Condition: Good Prescriptions Prescriptions: New azithromycin [Zithromax Z-Jeff] 250 mg tablet See Rx Instructions .ROUTE .COMPLEX 5 Days Qty: 6 0RF Rx Instructions: For 250 mg dose pack: take 500 mg today (day 1), then 250 mg for 4 days (days 2-5) prednisone [prednisone] 20 mg tablet 20 mg PO BID 5 Days Qty: 10 0RF No Action hydrocodone-acetaminophen 1 EACH tablet 1 tab PO QID Qty: 120 0RF gabapentin 800 MG tablet 800 mg PO QID Qty: 120 2RF methocarbamol 500 mg tablet 500 mg PO HS Qty: 30 0RF Referrals Follow up/Referrals: Senia Espinoza APRN [Primary Care Provider] - See instructions Activity Restrictions/Add. Instructions Additional Instructions/Restrictions: Start antibiotic. Be sure to complete entire prescription even if feeling better Monitor temp. Tylenol every 4 hours as needed and / or ibuprofen every 6 hours as needed ( As long as your primary care physician has told you that it ok to take both. For fever/aches/pains ER if no less than 101 despite Tylenol or Motrin Humidifier/vaporizer or hot steamy shower Inhaler every 4-6 hours as needed like we discussed. If unsure how to use it, ask pharmacist to demonstrate how. Should help open airways and improve cough, wheezing, and shortness of breath *Tessalon Perles will not cause drowsiness but use at bedtime to help stop cough so that you may get some rest. *Start steroid . Helps with inflammation therefore, cough and wheezing. Follow directions on the package. Reviewed side effects. Patient reports taking them before. Follow up IMMEDIATELY for new or worsening of symptoms OR no noticeable improvement over the next 48-72 hours. 911 immediately for any life threatening symptoms such as chest pain or difficulty breathing Clinical Impressions Clinical Impression: Bronchitis, Exposure to COVID-19 virus Sinusitis Qualifiers: Sinusitis location: unspecified location Chronicity: unspecified Qualified Code(s): J32.9 - Chronic sinusitis, unspecified Instructions Patient Instructions: Sinusitis, Acute Bronchitis, DI for Sinusitis Discharge ED Provider: Camryn Palmer [facility] [place], [place] General Stated complaint: body aches Mode of Arrival: Ambulatory Source of Information: Patient Limitations: No Limitations Time Seen by Provider: 04/25/23 19:07 Description of Symptoms (Recalled from Triage Doc. by RN): pt c/o a cough, wheezing, myalgia, sore throat, and nasal drainage x3days. HEENT Symptoms (Recalled from RN notes): Yes Resp Symptoms (Recalled from RN notes): Yes Skin Symptoms (Recalled from RN notes): No MS Symptoms (Recalled from RN notes): Yes Functional Status (Recalled from RN notes): wnl History of Present Illness Provider Complaint: Patient states that his sinuses is hurting and has pressure behind his eyes, sore throat and feeling achy States that his throat hurts and feels like razor blades States that he is worried that it will move into his chest States that he has had cough but not coughing anything up States he wanted to get something before he got too bad for his sinuses Related Data Previous Rx's Medication Instructions Recorded methocarbamol 500 mg tablet 500 mg PO HS . #30 tabs 01/17/23 gabapentin 800 mg tablet 800 mg PO QID nerve pain #120 tabs 02/15/23 hydrocodone 10 mg-acetaminophen 1 tab PO QID Pain #120 tabs 02/15/23 325 mg tablet azithromycin 250 mg tablet See Rx Instructions PO .COMPLEX 5 02/19/23 (Zithromax Z-Jeff) days #6 tabs prednisone 20 mg tablet 20 mg PO BID 5 days #10 tabs 02/19/23 Allergies Allergy/AdvReac Type Severity Reaction Status Date / Time acetaminophen [From PERCOCET] Allergy Severe S-SWELLS-OR Verified 01/10/23 18:53 AL/THROAT oxycodone [From PERCOCET] Allergy Severe S-SWELLS-OR Verified 01/10/23 18:53 AL/THROAT Worker's Comp Is this a Worker's Com
[2023-02-19 19:23] LABS: UTC Strep Screen (Rapid) Negative (Negative)
[2023-02-19 19:41] VITALS: BP 119/72; PULSE 63; RESP 22; TEMP 36.8
== END 2023-02-19 19:43 | disposition home or self-care (01) ==
PROVIDERS: Emergency Provider Nurse Practitioner; PCP Nurse Practitioner Family
DX: J20.9 Acute bronchitis, unspecified (principal); J01.90 Acute sinusitis, unspecified; Z20.822 Contact with and (suspected) exposure to COVID-19; I10 Essential (primary) hypertension; E78.5 Hyperlipidemia, unspecified; K21.9 Gastro-esophageal reflux disease without esophagitis
CPT/HCPCS: 87880; 96372; 99212; 99214; G0463; J0696

== ENCOUNTER → 2023-03-14 14:45 | Outpatient (POV) | payer MEDICARE, SELFPAY ==
--- NOTE | 2023-03-14 15:21 | EXP.PAIN.SOA ---
[facility] Pain Management SOAP Note Subjective:: Patient is a pleasant 73-year-old male who presents today for medication refill and follow-up. We are currently treating the patient for degenerative disc disease of lumbar spine with lumbar radiculopathy symptoms, osteoarthritis left shoulder and left knee.? Today he rates his pain a 6 out of 10.? He denies any new trauma or injury. He denies any change location or type of pain he experiences. He does state his pain is a chronic issue that causes constant aching, throbbing sensations that are worse with increased activity. H he is currently managed with gabapentin 800 mg 4 times a day and [place] 10 mg 4 times a day.? Patient denies any side effects from this medication.? He does state that he feels like these medications do not work as well as they initially used to. He is also prescribed methocarbamol 500 mg at bedtime and states this does help. He is requesting refills for these medications. Patient has tried oral medications, heat and ice, topicals, at home exercise and stretching for longer than 6 weeks along with physical therapy in the past with no additional in improvement of his pain symptoms. His Siva is [id number]. Its been reviewed and appropriate.? Its been reviewed and appropriate. Review of Systems: General: No recent weight changes, no fever, no sleep disturbances Respiratory: No cough, no shortness of air, no recurring pulmonary infections Cardiovascular/peripheral vascular: No chest pain, no palpitations,? no edema, no shortness of breath Gastrointestinal: No new onset incontinence, normal bowel movements reported Genitourinary: No new onset incontinence Musculoskeletal: Low back pain Psychiatric: [Normal mood/affect] Neurological: [Denies weakness in extremities], [denies balance issues] Objective:: Physical Exam: General: Alert and oriented x3, no acute distress, pleasant and cooperative Lungs: Respirations even and unlabored, symmetrical chest expansion Eyes: PERRL Musculoskeletal: Flexion and extension of lumbar [spine] somewhat guarded secondary to pain, [antalgic gait noted] Neurological: Speech clear, no gross sensory deficit Assessment:: Degenerative disc disease of lumbar spine with lumbar radiculopathy symptoms, osteoarthritis left shoulder, osteoarthritis left knee, chronic pain syndrome Plan:: Patient continues to experience significant pain in his back on a daily basis with limited range of motion. I will refill the patient's gabapentin 800 mg 4 times a day and [place] 10 mg 4 times a day as well as his methocarbamol 500 mg at bedtime and provide a 1 month supply of this medication. I have discussed with the patient that he may benefit from possible pain pump trial in the future. Risk and benefits and educational handouts were gone over during today's visit and he would like to proceed forward with this plan of care. I will order a psychological evaluation and if he is deemed an appropriate candidate for the device we will proceed forward with a pain pump trial in the future. Patient will return to clinic in 1 month for reevaluation of symptoms, medication refill and follow-up. Patient has been advised of risks of oversedation with the prescribed medication. Narcan has been offered to the patient in the event of oversedation. Patient has been advised that a family member should also be educated regarding administration of Narcan. Patient has been instructed to contact the clinic with any concerns before the next appointment. Dr. Gongora has reviewed this note and agrees with this plan of care. This note was dictated using voice recognition software and make contain errors or omissions. [facility] Disclaimer: The information contained in this section may have been updated after the patient was seen, as this information can be updated by other users. Medical History Asthma BPH (benign prostatic hyperplasia) Hypertension S
[2023-03-14 16:08] VITALS: BP 97/76; PULSE 74; RESP 18; O2SAT 98; BMI 23.4
== END | disposition home or self-care (01) ==
PROVIDERS: PCP Nurse Practitioner Family; Visit Provider Nurse Practitioner Family
DX: M51.16 Intervertebral disc disorders with radiculopathy, lumbar region (principal); M17.12 Unilateral primary osteoarthritis, left knee; M19.012 Primary osteoarthritis, left shoulder; G89.4 Chronic pain syndrome
CPT/HCPCS: 99212; G0463

== ENCOUNTER → 2023-03-14 15:41 | Outpatient (CLI) | payer MEDICARE, SELFPAY ==
[2023-03-14 17:14] LABS: Amphetamine/Metha Screen,Urine Negative ng/ml (<1000)
[2023-03-14 17:15] LABS: Barbiturates Screen,Urine Negative ng/ml (<200); Benzodiazepines Screen,Urine Negative ng/ml (<200)
[2023-03-14 17:16] LABS: Cannabinoid Screen,Urine Negative ng/ml (<50)
[2023-03-14 17:17] LABS: Methadone Screen,Urine Negative ng/ml (<300); Opiate Screen,Urine Positive ng/ml (<300)
[2023-03-14 17:18] LABS: Cocaine Screen,Urine Negative ng/ml (<300)
[2023-03-14 17:19] LABS: Phencyclidine Screen,Urine Negative ng/ml (<25)
[2023-03-21 07:09] LABS: Codeine Negative (Cutoff=100); Hydrocodone Positive (.); Hydromorphone Positive (.); Morphine Negative (Cutoff=100); Opiates Positive (.)
== END ==
PROVIDERS: PCP Nurse Practitioner Family; Visit Provider Nurse Practitioner Family
DX: Z79.891 Long term (current) use of opiate analgesic (principal)
CPT/HCPCS: 80305; 80361; 80365; 99212; G0463; G0480

== ENCOUNTER 2023-03-21 17:16 | Emergency (ER) | payer MEDICARE, SELFPAY ==
--- NOTE | 2023-03-21 17:44 | EXP.UTC ---
Discharge Plan Disposition Patient Disposition: Home, Self-Care Condition: Good Prescriptions Prescriptions: New azithromycin [Zithromax] 250 mg tablet 250 mg PO UD DOSE PK Qty: 6 0RF Rx Instructions: Take two (2) tablets today, then one (1) tablet days #2 thru #5 benzonatate [benzonatate] 100 mg capsule 100 mg PO TIDP PRN (Reason: Cough) Qty: 30 0RF methylprednisolone 4 mg Tablets,Dose Pack 4 mg PO DIRECTED Qty: 21 0RF No Action methocarbamol 500 mg tablet 500 mg PO HS Qty: 30 0RF hydrocodone-acetaminophen 1 EACH tablet 1 tab PO QID Qty: 120 0RF gabapentin 800 MG tablet 800 mg PO QID Qty: 120 2RF Referrals Follow up/Referrals: Senia Espinoza APRN [Primary Care Provider] - See instructions Activity Restrictions/Add. Instructions Additional Instructions/Restrictions: Drink plenty of fluids. Take tylenol or ibuprofen for pain or fever. Take the medications as directed. Follow up with your regular doctor. GO TO THE ER FOR ANY WORSENING SYMPTOMS Clinical Impressions Clinical Impression: Acute bronchitis, Acute sinusitis Instructions Patient Instructions: Sinusitis, DI for Sinusitis Discharge ED Provider: George Conley [facility] General Stated complaint: Cough,weakness Time Seen by Provider: 03/21/23 17:44 History of Present Illness Provider Complaint: He states that for the past 3 days he has had worsening sinus congestion and chest congestion. He has been having worsening fatigue with this also. Related Data Previous Rx's Medication Instructions Recorded gabapentin 800 mg tablet 800 mg PO QID nerve pain #120 tabs 03/14/23 hydrocodone 10 mg-acetaminophen 1 tab PO QID Pain #120 tabs 03/14/23 325 mg tablet methocarbamol 500 mg tablet 500 mg PO HS . #30 tabs 03/14/23 azithromycin 250 mg tablet 250 mg PO UD DOSE PK #6 tabs 03/21/23 (Zithromax) benzonatate 100 mg capsule 100 mg PO TIDP PRN Cough #30 caps 03/21/23 methylprednisolone 4 mg tablets in 4 mg PO DIRECTED #21 tabs 03/21/23 a dose pack Allergies Allergy/AdvReac Type Severity Reaction Status Date / Time acetaminophen [From PERCOCET] Allergy Severe S-SWELLS-OR Verified 01/10/23 18:53 AL/THROAT oxycodone [From PERCOCET] Allergy Severe S-SWELLS-OR Verified 01/10/23 18:53 AL/THROAT PFSH PFSH Disclaimer: The information contained in this section may have been updated after the patient was seen, as this information can be updated by other users. Medical History Asthma BPH (benign prostatic hyperplasia) Hypertension Surgical History History of back surgery History of elbow surgery History of splenectomy History of surgery on lower extremity Family History Other No significant family history Social History Smoking Status: Never smoker second hand exposure: No alcohol intake: never substance use type: denies use current occupational status: other Travel in the last 8 weeks: None housing: house caffeine: Yes ROS Obtained: Yes All systems reviewed & no additional complaints except as documented Constitutional Constitutional: Reports chills and Reports fever(s) Eyes Eyes: Denies eye discharge ENT Ears, Nose, Mouth, and Throat: Reports as per HPI Cardiovascular Cardiovascular: Denies chest pain Respiratory Respiratory: Denies shortness of breath, Reports chest congestion, Reports cough and Denies wheezing Gastrointestinal Gastrointestingal: Reports nausea; Denies abdominal pain, constipation, cramping, diarrhea or vomiting Musculoskeletal Musculoskeletal: Denies arthralgias Integumentary/Breasts Skin/Breast: Denies rash Neurologic Neurologic: Denies paresthesias Allergic/Immunologic Allergic/Immunologic: Denies wheezing Physical Ex
[2023-03-21 17:46] VITALS: BP 178/91; PULSE 68; RESP 17; TEMP 36.8; O2SAT 98; BMI 25.3
[2023-03-21 18:11] VITALS: BP 164/91; PULSE 71; RESP 17; TEMP 36.8; O2SAT 99
== END 2023-03-21 18:13 | disposition home or self-care (01) ==
PROVIDERS: Emergency Provider Nurse Practitioner Family; PCP Nurse Practitioner Family
DX: J20.9 Acute bronchitis, unspecified (principal); J01.90 Acute sinusitis, unspecified; R53.83 Other fatigue; I10 Essential (primary) hypertension; J45.909 Unspecified asthma, uncomplicated
CPT/HCPCS: 99212; 99214; G0463

== ENCOUNTER → 2023-04-10 14:24 | Outpatient (POV) | payer MEDICARE, SELFPAY ==
--- NOTE | 2023-04-10 14:45 | EXP.PAIN.SOA ---
[facility] [place] Pain Management SOAP Note Subjective:: Patient is a pleasant 73-year-old male who presents today for medication refill and follow-up. We are currently treating the patient for degenerative disc disease of lumbar spine with lumbar radiculopathy symptoms, osteoarthritis left shoulder and left knee. Today he rates his pain a 5 out of 10. Patient denies any new trauma or injury. Patient denies any change location or type of pain that he experiences. He does describe his pain in his low back as a constant aching, throbbing sensation that is worse with increased activity. At our last visit he was given information for a psych eval for possible pain pump trial in the future however he states he has not heard from this office yet. He is currently managed with gabapentin 800 mg 4 times a day, methocarbamol 500 mg at bedtime and [place] 10 mg 4 times a day. Patient denies any side effects from these medications. His Siva is [id number]. Its been reviewed and appropriate. Review of Systems: General: No recent weight changes, no fever, no sleep disturbances Respiratory: No cough, no shortness of air, no recurring pulmonary infections Cardiovascular/peripheral vascular: No chest pain, no palpitations, no edema, no shortness of breath Gastrointestinal: No new onset incontinence, normal bowel movements reported Genitourinary: No new onset incontinence Musculoskeletal: Low back pain Psychiatric: [Normal mood/affect] Neurological: [Denies weakness in extremities], [denies balance issues] Objective:: Physical Exam: General: Alert and oriented x3, no acute distress, pleasant and cooperative Lungs: Respirations even and unlabored, symmetrical chest expansion Eyes: PERRL Musculoskeletal: Flexion and extension of lumbar [spine] somewhat guarded secondary to pain, [antalgic gait noted] Neurological: Speech clear, no gross sensory deficit Assessment:: Degenerative disc disease of lumbar spine with lumbar radiculopathy symptoms, osteoarthritis left shoulder and left knee Plan:: I will refill the patient's gabapentin 800 mg 4 times a day, [place] 10 mg 4 times a day and methocarbamol 500 mg at bedtime and provide a 1 month supply of this medication. I have reviewed over the information regarding the psychological evaluation and given the patient their office number to contact to see about his appointment date. We will discuss this at future visits. Patient will return to clinic in 1 month for reevaluation of symptoms, medication refill and follow-up. Patient has been advised of risks of oversedation with the prescribed medication. Narcan has been offered to the patient in the event of oversedation. Patient has been advised that a family member should also be educated regarding administration of Narcan. Patient has been instructed to contact the clinic with any concerns before the next appointment. Dr. Gongora has reviewed this note and agrees with this plan of care. This note was dictated using voice recognition software and make contain errors or omissions. [facility] Disclaimer: The information contained in this section may have been updated after the patient was seen, as this information can be updated by other users. Medical History Asthma BPH (benign prostatic hyperplasia) Hypertension Surgical History History of back surgery History of elbow surgery History of splenectomy History of surgery on lower extremity Family History Other No significant family history Social History Smoking Status: Never smoker second hand exposure: No alcohol intake: never substance use type: denies use current occupational status: other Travel in the last 8 weeks: None housing: house caffeine: Yes
[2023-04-10 15:51] VITALS: BP 155/86; PULSE 71; RESP 18; TEMP 36.6; O2SAT 97; BMI 23.4
== END | disposition home or self-care (01) ==
PROVIDERS: Visit Provider Nurse Practitioner Family
DX: M51.16 Intervertebral disc disorders with radiculopathy, lumbar region (principal); M19.012 Primary osteoarthritis, left shoulder; M17.12 Unilateral primary osteoarthritis, left knee
CPT/HCPCS: 99212; G0463

== ENCOUNTER 2023-05-13 18:13 | Emergency (ER) | payer MEDICARE, SELFPAY ==
[2023-05-13 18:30] VITALS: BP 129/74; PULSE 71; RESP 18; TEMP 37.1; O2SAT 97; BMI 22.3
[2023-05-13 18:40] VITALS: BP 129/74; PULSE 71; RESP 18; TEMP 37.1; O2SAT 97
--- NOTE | 2023-05-13 18:40 | EXP.UTC ---
Discharge Plan Disposition Patient Disposition: Home, Self-Care Condition: Good Prescriptions Prescriptions: New prednisone [prednisone] 20 mg tablet 20 mg PO BID 5 Days Qty: 10 0RF benzonatate 100 mg capsule 100 mg PO TID PRN (Reason: cough) Qty: 30 0RF amoxicillin-pot clavulanate 875-125 mg Tablet 1 tab PO Q12H Qty: 20 0RF No Action methocarbamol 500 mg tablet 500 mg PO HS Qty: 30 0RF hydrocodone-acetaminophen 1 EACH tablet 1 tab PO QID Qty: 120 0RF gabapentin 800 MG tablet 800 mg PO QID Qty: 120 0RF Referrals Follow up/Referrals: Senia Espinoza APRN [Primary Care Provider] - See instructions Activity Restrictions/Add. Instructions Additional Instructions/Restrictions: Start oral antibiotics (Augmentin) and Oral Prednisone tomorrow 05/14/23 *Monitor Temp, Over the counter Motrin or Tylenol as directed/as needed Tylenol every 4 hours and Motrin every 6 hours (as long as your family doctor has told you that you can take it) for fever or pain. and straight to ER if unable to lower temp less than 101.0 after medication given *Warm salt water gargles may help to soothe the throat *Throat Lozenges? *Warm fluids like tea with honey may help to soothe the throat? *Sleep elevated *Humidifier/Vaporizer Take medication as prescribed Follow up with your Family Doctor if no improvement or any worsening of symptoms Follow up IMMEDIATELY for new or worsening symptoms or no Noticeable improvement over the next 48-72 hours. 911 for difficulty breathing or swallowing Clinical Impressions Clinical Impression: Bronchitis Sinusitis Qualifiers: Sinusitis location: unspecified location Chronicity: unspecified Qualified Code(s): J32.9 - Chronic sinusitis, unspecified Instructions Patient Instructions: Acute Bronchitis, DI for Sinusitis Discharge ED Provider: Camryn Palmer [facility] General Stated complaint: hot then cold, headache Mode of Arrival: Ambulatory Source of Information: Patient Limitations: No Limitations Time Seen by Provider: 05/13/23 18:40 Description of Symptoms (Recalled from Triage Doc. by RN): PATIENT C/O RUNNY NOSE, COUGH, CONGESTION, BODY ACHES, CHILLS AND HEADACHE X 3 DAYS HEENT Symptoms (Recalled from RN notes): Yes Resp Symptoms (Recalled from RN notes): Yes Skin Symptoms (Recalled from RN notes): No MS Symptoms (Recalled from RN notes): No Functional Status (Recalled from RN notes): WNL History of Present Illness Provider Complaint: Patient states that he has been having cough, sinus congestion and pressure, feeling hot then cold, headache, body aches and chills for the last 3 days States that he feels like he does when he gets a sinus infection and bronchitis States that he isnt coughing anything up but was worried that he would get worse if he didnt come in and get checked out Related Data Previous Rx's Medication Instructions Recorded gabapentin 800 mg tablet 800 mg PO QID nerve pain #120 tabs 04/10/23 hydrocodone 10 mg-acetaminophen 1 tab PO QID Pain #120 tabs 04/10/23 325 mg tablet methocarbamol 500 mg tablet 500 mg PO HS . #30 tabs 04/10/23 amoxicillin 875 mg-potassium 1 tab PO Q12H #20 tabs 05/13/23 clavulanate 125 mg tablet benzonatate 100 mg capsule 100 mg PO TID PRN cough #30 caps 05/13/23 prednisone 20 mg tablet 20 mg PO BID 5 days #10 tabs 05/13/23 Allergies Allergy/AdvReac Type Severity Reaction Status Date / Time acetaminophen [From PERCOCET] Allergy Severe S-SWELLS-OR Verified 01/10/23 18:53 AL/THROAT oxycodone [From PERCOCET] Allergy Severe S-SWELLS-OR Verified 01/10/23 18:53 AL/THROAT Worker's Comp Is this a Worker's Comp case?: No [facility] Disclaimer: The information contained in this section may have been updated after the patient was seen, as this information can be updated by other users. Medical History Asthma BPH (benign pr
[2023-05-13 18:42] LABS: UTC Influenza A Antigen Negative (Negative); UTC Influenza B Antigen Negative (Negative)
== END 2023-05-13 19:17 | disposition home or self-care (01) ==
PROVIDERS: Emergency Provider Nurse Practitioner; PCP Nurse Practitioner Family
DX: J20.9 Acute bronchitis, unspecified (principal); J32.9 Chronic sinusitis, unspecified; R51.9 Headache, unspecified; J45.909 Unspecified asthma, uncomplicated; N40.0 Benign prostatic hyperplasia without lower urinary tract symptoms; I10 Essential (primary) hypertension
CPT/HCPCS: 87804; 96372; 99212; 99214; G0463; J0696

== ENCOUNTER 2023-06-17 15:54 | Emergency (ER) | payer MEDICARE, SELFPAY ==
[2023-06-17 15:55] VITALS: BP 115/73; PULSE 69; RESP 18; TEMP 36.6; O2SAT 96; BMI 22.0
--- NOTE | 2023-06-17 16:16 | EXP.UTC ---
Discharge Plan Disposition Patient Disposition: Home, Self-Care Condition: Good Prescriptions Prescriptions: New amoxicillin [amoxicillin] 500 mg tablet 500 mg PO TID 10 Days Qty: 30 0RF benzonatate [benzonatate] 100 mg capsule 100 mg PO TIDP PRN (Reason: Cough) Qty: 30 0RF prednisone [prednisone] 20 mg tablet 20 mg PO BID 3 Days Qty: 6 0RF No Action methocarbamol 500 mg tablet 500 mg PO HS Qty: 30 0RF hydrocodone-acetaminophen 1 EACH tablet 1 tab PO QID Qty: 120 0RF gabapentin 800 MG tablet 800 mg PO QID Qty: 120 0RF methocarbamol 500 mg tablet 500 mg PO HS Qty: 30 0RF gabapentin [Neurontin] 800 mg tablet 800 mg PO QID Qty: 120 0RF hydrocodone-acetaminophen 10-325 mg tablet 1 tab PO QID Qty: 120 0RF prednisone [prednisone] 20 mg tablet 20 mg PO BID 5 Days Qty: 10 0RF benzonatate 100 mg capsule 100 mg PO TID PRN (Reason: cough) Qty: 30 0RF amoxicillin-pot clavulanate 875-125 mg Tablet 1 tab PO Q12H Qty: 20 0RF Referrals Follow up/Referrals: Senia Espinoza APRN [Primary Care Provider] - See instructions Activity Restrictions/Add. Instructions Additional Instructions/Restrictions: Drink plenty of fluids. Take tylenol or ibuprofen for pain or fever. Take the medications as directed. Follow up with your regular doctor. GO TO THE ER FOR ANY WORSENING SYMPTOMS Clinical Impressions Clinical Impression: Bronchitis, Sinusitis Instructions Patient Instructions: DI for Sinusitis, DI for Acute Bronchitis Discharge ED Provider: George Conley [facility] General Stated complaint: cough and congestion Time Seen by Provider: 06/17/23 16:16 History of Present Illness Provider Complaint: He reports that for the past 2 weeks he has had sinus congestion, ear pain and a cough. Related Data Previous Rx's Medication Instructions Recorded gabapentin 800 mg tablet 800 mg PO QID nerve pain #120 tabs 04/10/23 hydrocodone 10 mg-acetaminophen 1 tab PO QID Pain #120 tabs 04/10/23 325 mg tablet methocarbamol 500 mg tablet 500 mg PO HS . #30 tabs 04/10/23 amoxicillin 875 mg-potassium 1 tab PO Q12H #20 tabs 07/17/23 clavulanate 125 mg tablet benzonatate 100 mg capsule 100 mg PO TID PRN cough #30 caps 05/13/23 prednisone 20 mg tablet 20 mg PO BID 5 days #10 tabs 05/13/23 gabapentin 800 mg tablet 800 mg PO QID #120 tabs 05/20/23 (Neurontin) hydrocodone 10 mg-acetaminophen 1 tab PO QID #120 tabs 05/20/23 325 mg tablet methocarbamol 500 mg tablet 500 mg PO HS #30 tabs 05/20/23 amoxicillin 500 mg tablet 500 mg PO TID 10 days #30 tabs 06/17/23 benzonatate 100 mg capsule 100 mg PO TIDP PRN Cough #30 caps 06/17/23 prednisone 20 mg tablet 20 mg PO BID 3 days #6 tabs 06/17/23 Allergies Allergy/AdvReac Type Severity Reaction Status Date / Time acetaminophen [From PERCOCET] Allergy Severe S-SWELLS-OR Verified 06/06/23 15:09 AL/THROAT oxycodone [From PERCOCET] Allergy Severe S-SWELLS-OR Verified 06/06/23 15:09 AL/THROAT PFSH PFSH Disclaimer: The information contained in this section may have been updated after the patient was seen, as this information can be updated by other users. Medical History Asthma BPH (benign prostatic hyperplasia) Hypertension Surgical History History of back surgery History of elbow surgery History of splenectomy History of surgery on lower extremity Family History Other No significant family history Social History Smoking Status: Never smoker second hand exposure: No alcohol intake: never substance use type: denies use current occupational status: other Travel in the last 8 weeks: None housing: house caffeine: Yes ROS Obtained: Yes All systems reviewed & no additional c
[2023-06-17 16:52] VITALS: BP 115/73; PULSE 69; RESP 18; TEMP 36.6; O2SAT 96
== END 2023-06-17 16:56 | disposition home or self-care (01) ==
PROVIDERS: Emergency Provider Nurse Practitioner Family; PCP Nurse Practitioner Family
DX: J20.9 Acute bronchitis, unspecified (principal); J01.90 Acute sinusitis, unspecified; I10 Essential (primary) hypertension; J45.909 Unspecified asthma, uncomplicated
CPT/HCPCS: 99212; 99214; G0463

== ENCOUNTER → 2023-07-08 14:53 | Outpatient (POV) | payer MEDICARE, SELFPAY ==
--- NOTE | 2023-07-08 14:57 | EXP.PAIN.SOA ---
[facility] Pain Management SOAP Note Subjective:: Patient is a pleasant 73-year-old male who presents today for medication refill and follow-up. We are currently treating the patient for degenerative disc disease of lumbar spine with lumbar radiculopathy symptoms, osteoarthritis left shoulder and left knee. Today he rates his pain a 5 out of 10. Patient denies any new trauma or injury. Patient denies any change location or type of pain that he experiences. He states he continues to have pain in his neck, low back and left knee. He describes his pain as a constant aching, throbbing sensation that is worse with increased activity. He states the pain does interfere with his ability perform activities of daily living such as cooking and cleaning. He states he has been doing a lot of driving for his daughter back and forth from [employer] and it does aggravate his pain symptoms. At our last visit he had had a psychological evaluation and was deemed an appropriate candidate for the pain pump trial. We are still currently waiting for approval for this procedure. He is currently managed with gabapentin 800 mg 4 times a day, methocarbamol 500 mg at bedtime and [place] 10 mg 4 times a day. Patient denies any side effects from these medications. His Siva is [phone]. Its been reviewed and appropriate. Review of Systems: General: No recent weight changes, no fever, no sleep disturbances Respiratory: No cough, no shortness of air, no recurring pulmonary infections Cardiovascular/peripheral vascular: No chest pain, no palpitations, no edema, no shortness of breath Gastrointestinal: No new onset incontinence, normal bowel movements reported Genitourinary: No new onset incontinence Musculoskeletal: Low back pain, neck pain, left knee pain Psychiatric: [Normal mood/affect] Neurological: [Denies weakness in extremities], [denies balance issues Objective:: Physical Exam: General: Alert and oriented x3, no acute distress, pleasant and cooperative Lungs: Respirations even and unlabored, symmetrical chest expansion Eyes: PERRL Musculoskeletal: Flexion and extension of lumbar [spine] somewhat guarded secondary to pain, [antalgic gait noted] Neurological: Speech clear, no gross sensory deficit Assessment:: Degenerative disc disease of lumbar spine with lumbar radiculopathy symptoms, left shoulder osteoarthritis, left knee pain, neck pain Plan:: I will refill the patient's medication of [place] 10 mg 4 times a day, gabapentin 800 mg 4 times a day and methocarbamol 500 mg at bedtime and provide a 1 month supply of these medications. Patient will return to clinic in 1 month for reevaluation of symptoms and medication refill. We have already submitted to insurance for the pain pump trial and we will contact him if we get approval for this procedure to give specific date and time. Patient has been advised of risks of oversedation with the prescribed medication. Narcan has been offered to the patient in the event of oversedation. Patient has been advised that a family member should also be educated regarding administration of Narcan. Patient has been instructed to contact the clinic with any concerns before the next appointment. Dr. Gongora has reviewed this note and agrees with this plan of care. This note was dictated using voice recognition software and make contain errors or omissions. [facility] Disclaimer: The information contained in this section may have been updated after the patient was seen, as this information can be updated by other users. Medical History Asthma BPH (benign prostatic hyperplasia) Hypertension Surgical History History of back surgery History of elbow surgery History of splenectomy History of surgery on lower extremity Family History Other No significant family history Social History (R
[2023-07-08 15:53] VITALS: BP 155/88; PULSE 70; RESP 19; O2SAT 97; BMI 23.0
== END | disposition home or self-care (01) ==
PROVIDERS: PCP Nurse Practitioner Family; Visit Provider Nurse Practitioner Family
DX: M51.16 Intervertebral disc disorders with radiculopathy, lumbar region (principal); M19.012 Primary osteoarthritis, left shoulder; M17.12 Unilateral primary osteoarthritis, left knee; M54.2 Cervicalgia
CPT/HCPCS: 99212; G0463

== ENCOUNTER 2023-07-08 16:31 | Emergency (ER) | payer MEDICARE, SELFPAY ==
[2023-07-08 17:35] VITALS: BP 172/87; PULSE 71; RESP 20; TEMP 36.8; O2SAT 99; BMI 21.1
--- NOTE | 2023-07-08 18:07 | EXP.UTC ---
Discharge Plan Disposition Patient Disposition: Home, Self-Care Condition: Good Prescriptions Prescriptions: New prednisone 10 mg tablet 10 mg PO BID 5 Days Qty: 10 0RF azithromycin [Zithromax Z-Jeff] 250 mg tablet See Rx Instructions .ROUTE .COMPLEX 5 Days Qty: 6 0RF Rx Instructions: For 250 mg dose pack: take 500 mg today (day 1), then 250 mg for 4 days (days 2-5) benzonatate 100 mg capsule 100 mg PO TID PRN (Reason: cough) Qty: 30 0RF No Action methocarbamol 500 mg tablet 500 mg PO HS Qty: 30 0RF hydrocodone-acetaminophen 1 EACH tablet 1 tab PO QID Qty: 120 0RF gabapentin [Neurontin] 800 mg tablet 800 mg PO QID Qty: 120 0RF methocarbamol 500 mg tablet 500 mg PO HS hydrocodone-acetaminophen 10-325 mg tablet 1 tab PO QID gabapentin [Neurontin] 800 mg tablet 800 mg PO QID benzonatate [benzonatate] 100 mg capsule 100 mg PO TIDP PRN (Reason: Cough) Qty: 30 0RF Referrals Follow up/Referrals: Rodríguez Lagos MD [Primary Care Provider] - See instructions Activity Restrictions/Add. Instructions Additional Instructions/Restrictions: *Monitor Temp, Over the counter Motrin or Tylenol as directed/as needed Tylenol every 4 hours and Motrin every 6 hours (as long as your family doctor has told you that you can take it) for fever or pain. and straight to ER if unable to lower temp less than 101.0 after medication given *Warm salt water gargles may help to soothe the throat *Throat Lozenges? *Warm fluids like tea with honey may help to soothe the throat? *Sleep elevated *Humidifier/Vaporizer *Flonase 2 sprays in each nostril daily but be aware that it may take 2-3 days before you notice improvement *Bromfed may cause drowsiness. Know how it effects you (your child) before driving, caring for small child, or sending your child to school. Not other antihistamines/allergy medications while taking bromfed Your throat swab was sent for culture. Those results are typically sent to your primary care. Be sure to follow up in 2-3 days with your family doctor/primary care physician if no improvement so they can review those result and treat if necessary. If you don?t have a primary care doctor, I recommend you get one but in the mean time, you will have to return to a walk in clinic Follow up IMMEDIATELY for new or worsening symptoms or no Noticeable improvement over the next 48-72 hours. 911 for difficulty breathing or swallowing You were tested for today for COVID19 your test result should be back in the next 24, you may Check your Results on the [facility] [employer] Clinical Impressions Clinical Impression: Sinusitis Qualifiers: Sinusitis location: unspecified location Chronicity: unspecified Qualified Code(s): J32.9 - Chronic sinusitis, unspecified Instructions Patient Instructions: Sinusitis, Middle Ear Infection, DI for Sinusitis Discharge ED Provider: Camryn Palmer [facility] [place] HPI General Stated complaint: body ache, h/a, ear pain Mode of Arrival: Ambulatory Source of Information: Patient Limitations: No Limitations Time Seen by Provider: 07/08/23 18:07 Description of Symptoms (Recalled from Triage Doc. by RN): PATIENT C/O EAR PAIN, COUGH, AND LEG PAIN HEENT Symptoms (Recalled from RN notes): Yes Resp Symptoms (Recalled from RN notes): Yes Skin Symptoms (Recalled from RN notes): No MS Symptoms (Recalled from RN notes): No Functional Status (Recalled from RN notes): WNL History of Present Illness Provider Complaint: Patient states that he has been having bilateral ear pain, sinus congestion and drainage and feeling achy all over State that he was worried he had an ear infection and the flu Related Data Home Medications Medication Instructions Recorded Confirmed gabapentin 800 mg tablet 800 mg PO QID Pain 07/08/23 07/08/23 (Neurontin) hydrocodone 10 mg-acetaminophen 1 tab PO QID Pain 07/08/23 07/08/23 325 mg tablet
[2023-07-08 18:28] VITALS: BP 172/87; PULSE 71; RESP 20; TEMP 36.8; O2SAT 99
[2023-07-08 18:30] LABS: UTC Influenza A Antigen Negative (Negative); UTC Influenza B Antigen Negative (Negative)
== END 2023-07-08 18:30 | disposition home or self-care (01) ==
PROVIDERS: Emergency Provider Nurse Practitioner; PCP Family Medicine
DX: J01.90 Acute sinusitis, unspecified (principal); R53.81 Other malaise; I10 Essential (primary) hypertension; J45.909 Unspecified asthma, uncomplicated
CPT/HCPCS: 87804; 99212; 99214; G0463

== ENCOUNTER → 2023-07-17 06:38 | Outpatient (CLI) | payer MEDICARE, SELFPAY ==
[2023-07-17 17:58] LABS: Alanine Aminotransferase 18 U/L (12-78); Albumin/Globulin Ratio 1.3 (1.1-1.8); Alkaline Phosphatase 106 U/L (38-126); Anion Gap 12.9 mEq/L (5-15); Aspartate Amino Transferase 27 U/L (17-59); Bilirubin,Total 0.4 mg/dl (0.2-1.3); Blood Urea Nitrogen 14 mg/dl (9-20); Calcium 9.4 mg/dl (8.4-10.2); Carbon Dioxide 29 mmol/L (22.0-30.0); Chloride 105 mmol/L (98-107); Chol/HDL Ratio 4.1 (1-3.5); Cholesterol 177 mg/dl (140-200); Estimated Glomerular Filt Rate 95 ml/min (>60); GFR (African American) 115 ML/MIN (>60); Globulin 3.2 g/dL (1.3-3.2); Glucose 79 mg/dl (74-100); HDL Cholesterol 43 mg/dl (40-60); Potassium 3.9 mmoL/L (3.5-5.1); Sodium 143 mmol/L (136-145); Total Protein,Serum 7.2 g/dl (6.3-8.2); Triglycerides 110 mg/dl (30-150); VLDL Cholesterol 22 mg/dL (0-40)
[2023-07-17 18:08] LABS: Direct LDL Cholesterol 97.65 mg/dL (100-129)
[2023-07-17 18:49] LABS: Vitamin B12 188 pg/mL (239-931)
== END ==
PROVIDERS: PCP Nurse Practitioner Family; Visit Provider Nurse Practitioner Family
DX: E78.5 Hyperlipidemia, unspecified (principal); I65.29 Occlusion and stenosis of unspecified carotid artery; E53.8 Deficiency of other specified B group vitamins
CPT/HCPCS: 80053; 80061; 82607

== ENCOUNTER 2023-07-26 18:42 | Emergency (ER) | payer MEDICARE, SELFPAY ==
[2023-07-26 19:00] VITALS: BP 131/79; PULSE 76; RESP 19; TEMP 36.8; O2SAT 98; BMI 21.9
--- NOTE | 2023-07-26 19:06 | EXP.UTC ---
Discharge Plan Disposition Patient Disposition: Home, Self-Care Condition: Good Prescriptions Prescriptions: No Action amoxicillin 875 mg tablet 875 mg PO BID 10 Days Qty: 20 0RF Zyrtec 10 mg capsule 10 mg PO DAILY PRN (Reason: allergy symptoms) 30 Days Qty: 30 5RF sertraline 25 mg tablet 25 mg PO DAILY 30 Days Qty: 30 2RF methocarbamol 500 mg tablet 500 mg PO HS Qty: 30 0RF hydrocodone-acetaminophen 1 EACH tablet 1 tab PO QID Qty: 120 0RF gabapentin [Neurontin] 800 mg tablet 800 mg PO QID Qty: 120 0RF benzonatate 100 mg capsule 100 mg PO TID PRN (Reason: cough) Qty: 30 0RF Referrals Follow up/Referrals: Senia Espinoza APRN [Primary Care Provider] - See instructions Activity Restrictions/Add. Instructions Additional Instructions/Restrictions: Take your Cetirizine as it was prescribed to you cool compresses may help with pain and swelling from bee stings Follow up with your Family Doctor if needed Straight to ER if any life threatening symptoms Clinical Impressions Clinical Impression: Bee sting reaction Qualifiers: Encounter type: initial encounter Injury intent: accidental or unintentional Qualified Code(s): T63.441A - Toxic effect of venom of bees, accidental (unintentional), initial encounter Instructions Patient Instructions: Insect Bites and Stings, DI for Insect Bites and Stings Discharge ED Provider: Camrny Palmer [facility] [place] HPI General Stated complaint: stung by bees Mode of Arrival: Ambulatory Source of Information: Patient Limitations: No Limitations Time Seen by Provider: 07/26/23 19:06 Description of Symptoms (Recalled from Triage Doc. by RN): PATIENT C/O HORNET/BEE STINGS OVER BODY SINCE 1600 TODAY HEENT Symptoms (Recalled from RN notes): No Resp Symptoms (Recalled from RN notes): No Skin Symptoms (Recalled from RN notes): Yes MS Symptoms (Recalled from RN notes): No Functional Status (Recalled from RN notes): WNL History of Present Illness Provider Complaint: Patient states that he was weedeating earlier when he got into a bees nest States that he was stung several times on his hip and lower extremities along with bug bites on his lower legs State that happened around 4pm this evening States that he was worried that he may have a reaction or something to them and wanted to get them looked at Denies being stung in face or neck Denies SOA denies feeling like throat swelling Related Data Previous Rx's Medication Instructions Recorded benzonatate 100 mg capsule 100 mg PO TID PRN cough #30 caps 07/08/23 gabapentin 800 mg tablet 800 mg PO QID #120 tabs 07/08/23 (Neurontin) hydrocodone 10 mg-acetaminophen 1 tab PO QID Pain #120 tabs 07/08/23 325 mg tablet methocarbamol 500 mg tablet 500 mg PO HS #30 tabs 07/08/23 amoxicillin 875 mg tablet 875 mg PO BID 10 days #20 tabs 07/17/23 cetirizine 10 mg capsule (Zyrtec) 10 mg PO DAILY PRN allergy 07/17/23 symptoms 30 days #30 caps sertraline 25 mg tablet 25 mg PO DAILY 30 days #30 tabs 07/17/23 Allergies Allergy/AdvReac Type Severity Reaction Status Date / Time acetaminophen [From PERCOCET] Allergy Severe S-SWELLS-OR Verified 07/17/23 15:14 AL/THROAT oxycodone [From PERCOCET] Allergy Severe S-SWELLS-OR Verified 07/17/23 15:14 AL/THROAT Worker's Comp Is this a Worker's Comp case?: No [facility] Disclaimer: The information contained in this section may have been updated after the patient was seen, as this information can be updated by other users. Medical History (Updated 07/26/23 @ 19:24 by Camryn Palmer APRN) Asthma BPH (benign prostatic hyperplasia) Hypertension Surgical History (Updated 07/17/23 @ 15:18 by Han Rosales LPN) History of back surgery History of colectomy History of elbow surgery History of splenectomy History of surgery on lower extremity Hx of colonoscopy Family History Other No significant famil
[2023-07-26 19:34] VITALS: BP 131/79; PULSE 76; RESP 19; TEMP 36.8; O2SAT 98
== END 2023-07-26 19:45 | disposition home or self-care (01) ==
PROVIDERS: Emergency Provider Nurse Practitioner; PCP Nurse Practitioner Family
DX: T63.441A Toxic effect of venom of bees, accidental (unintentional), initial encounter (principal); I10 Essential (primary) hypertension; J45.909 Unspecified asthma, uncomplicated
CPT/HCPCS: 96372; 99212; 99214; G0463

== ENCOUNTER → 2023-07-29 15:10 | Outpatient (CLI) | payer MEDICARE, SELFPAY | PROVIDERS: PCP Nurse Practitioner Family; Visit Provider Nurse Practitioner Family | DX: R32 Unspecified urinary incontinence (principal) | CPT/HCPCS: 87086 ==

== ENCOUNTER → 2023-08-01 14:22 | Outpatient (POV) | payer MEDICARE, SELFPAY ==
--- NOTE | 2023-08-01 14:59 | EXP.PAIN.SOA ---
[facility] Pain Management SOAP Note Subjective:: Patient is a pleasant 73-year-old male who presents today for medication refill and follow-up. We are currently treating the patient for degenerative disc disease of lumbar spine with lumbar radiculopathy symptoms, osteoarthritis left shoulder and left knee. Today he rates his pain a 5 out of 10. Patient denies any new trauma or injury. Patient was scheduled for a intrathecal pain pump trial this past week however the patient did not show for this procedure. Patient today states that he was unaware of this appointment and really does want to proceed forward with the pump trial. Patient does have chronic pain throughout his back and describes it as a aching, throbbing sensation that is constant and affects his ability perform activities of daily living such as cooking and cleaning. Patient has tried and failed oral medications, heat and ice, topicals, physical therapy, at home exercise and stretching for longer than 12 weeks. Patient is currently managed with gabapentin 800 mg 4 times a day, methocarbamol 500 mg at bedtime and [place] 10 mg 4 times a day. Patient denies any side effects from this medication. His Siva is [phone]. Its been reviewed and appropriate. Review of Systems: General: No recent weight changes, no fever, no sleep disturbances Respiratory: No cough, no shortness of air, no recurring pulmonary infections Cardiovascular/peripheral vascular: No chest pain, no palpitations, no edema, no shortness of breath Gastrointestinal: No new onset incontinence, normal bowel movements reported Genitourinary: No new onset incontinence Musculoskeletal: Low back pain Psychiatric: [Normal mood/affect] Neurological: [Denies weakness in extremities], [denies balance issues] Objective:: Physical Exam: General: Alert and oriented x3, no acute distress, pleasant and cooperative Lungs: Respirations even and unlabored, symmetrical chest expansion Eyes: PERRL Musculoskeletal: Flexion and extension of lumbar [spine] somewhat guarded secondary to pain, [antalgic gait noted] Neurological: Speech clear, no gross sensory deficit Assessment:: Degenerative disc disease of lumbar spine with lumbar radiculopathy symptoms, osteoarthritis left shoulder, left knee pain, chronic pain syndrome Plan:: I will refill the patient's gabapentin 800 mg 4 times a day, [place] 10 mg 4 times a day and methocarbamol 500 mg at bedtime and provide a 1 month supply of these medications. Patient did have a psychological evaluation and was deemed an appropriate candidate for the intrathecal pain pump trial. I have reviewed over again the risk and benefits of this trial and he would like to proceed forward with this plan of care. We will resubmit to insurance for an extension for the pain pump trial and contact the patient once we have official approval. Patient will return to clinic in 1 month for his regularly scheduled medication refill date. Patient has been advised of risks of oversedation with the prescribed medication. Narcan has been offered to the patient in the event of oversedation. Patient has been advised that a family member should also be educated regarding administration of Narcan. Patient has been instructed to contact the clinic with any concerns before the next appointment. Dr. Gongora has reviewed this note and agrees with this plan of care. This note was dictated using voice recognition software and make contain errors or omissions. [facility] Disclaimer: The information contained in this section may have been updated after the patient was seen, as this information can be updated by other users. Medical History Asthma BPH (benign prostatic hyperplasia) Hypertension Surgical History History of back surgery History of colectomy for diveticulitis History of elbow surgery History of splenectomy History of
[2023-08-01 15:09] VITALS: BP 167/81; PULSE 59; RESP 20; O2SAT 98; BMI 22.0
== END | disposition home or self-care (01) ==
PROVIDERS: PCP Nurse Practitioner Family; Visit Provider Nurse Practitioner Family
DX: M51.16 Intervertebral disc disorders with radiculopathy, lumbar region (principal); M19.012 Primary osteoarthritis, left shoulder; M25.562 Pain in left knee; G89.29 Other chronic pain
CPT/HCPCS: 99212; G0463

== ENCOUNTER → 2023-08-01 15:11 | Outpatient (CLI) | payer MEDICARE, SELFPAY ==
[2023-08-01 19:09] LABS: Amphetamine/Metha Screen,Urine Negative ng/ml (<1000); Barbiturates Screen,Urine Negative ng/ml (<200)
[2023-08-01 19:11] LABS: Benzodiazepines Screen,Urine Negative ng/ml (<200)
[2023-08-01 19:12] LABS: Cannabinoid Screen,Urine Negative ng/ml (<50)
[2023-08-01 19:13] LABS: Cocaine Screen,Urine Negative ng/ml (<300); Methadone Screen,Urine Negative ng/ml (<300)
[2023-08-01 19:14] LABS: Opiate Screen,Urine Positive ng/ml (<300); Phencyclidine Screen,Urine Negative ng/ml (<25)
[2023-08-08 04:09] LABS: Codeine Negative (Cutoff=100); Hydrocodone Positive (.); Hydromorphone Positive (.); Morphine Negative (Cutoff=100); Opiates Positive (.)
== END ==
PROVIDERS: PCP Nurse Practitioner Family; Visit Provider Nurse Practitioner Family
DX: Z79.891 Long term (current) use of opiate analgesic (principal)
CPT/HCPCS: 80305; 80361; 80365; 99212; G0463; G0480

== ENCOUNTER 2023-08-16 10:39 | Day surgery (SDC) | payer MEDICARE, SELFPAY ==
[2023-08-16 11:24] VITALS: BP 189/98; PULSE 76; RESP 18; TEMP 37.1; O2SAT 95; BMI 25.7
[2023-08-16 12:06] VITALS: BP 193/98; PULSE 67; RESP 18; O2SAT 97
[2023-08-16 12:07] VITALS: BP 193/98; PULSE 67; RESP 18; O2SAT 97
--- NOTE | 2023-08-16 13:49 | PC.NURSE ---
1210: PAIN 0/10, DSG C/D/I, RR = 18, O2 ON RA = 98, HR = 72, BP R ARM = 124/79 1235: PAIN 0/10, DSG C/D/I, RR = 18, O2 ON RA = 96, HR = 67, BP R ARM = 124/54 1250: PAIN 0/10, DSG C/D/I, RR = 17, O2 ON RA = 96, HR = 54, BP R ARM = 143/75 1305: PAIN 0/10, DSG C/D/I, RR = 18, O2 ON RA = 98, HR = 59, BP R ARM = 138/68 1309: AMBULATED W/ NSG STAFF, GAIT STEADY, PAIN 0/10, DSG C/D/I 1320: PAIN 0/10, DSG C/D/I, RR = 18, O2 ON RA = 99, HR = 59, BP R ARM = 159/66
--- NOTE | 2023-08-16 15:18 | EXP.PAIN.PRO ---
Procedure Date: 08/16/23 Time: 15:18 Anesthesiologist:: Alejandro Gongora MD Complications:: None Pre-procedure Diagnosis:: Degenerative disc disease of lumbar spine with lumbar radiculopathy symptoms Post-procedure Diagnosis:: Same Indications for Procedure:: This patient is a pleasant 73-year-old white male who we are treating for low back pain with lumbar radiculopathy symptoms. He has increasing pain in his back radiating down both legs. He has failed all previous conservative treatments including injections, oral medications, physical therapy and he is not a candidate for surgery. He is on [place] 10 mg 4 times a day which is not helping. He last took his [place] 48 hours ago. He presents for intrathecal pump trial today. He has had a successful psychological evaluation. Procedure Details:: Pain pump trial Informed consent was obtained and the risk and benefits of the procedure was explained to the patient. The patient was taken to the procedure room and placed prone on the procedure table. Patient was prepped and draped in sterile fashion. C-arm fluoroscopy was used to view the lumbar spine. The skin and subcutaneous tissues were anesthetized using lidocaine. I placed a 18-gauge spinal needle into the L4-5 interspace and advanced until clear CSF was obtained. After this intrathecal catheter was inserted and advanced very easily to the L1 vertebral body. The needle was withdrawn. We were able to freely withdraw clear CSF through the catheter. We then injected intrathecal opioid single shot bolus of 25 mcg followed by saline and followed by the previous CSF that was withdrawn. The needle and catheter were then removed and a Band-Aid was placed. Patient tolerated the procedure well with no complications. We reevaluated the patient after 30 minutes to 1 hour. He was also reassessed by physical therapy. This patient had 90 to 100% relief in pain symptoms. He is walking much better and standing much better. He was much more functional. By all indications this did seem to be a successful intrathecal pump trial. We will follow-up with him in 1 week we will reevaluate symptoms at that time. If successful we will plan on implant with intrathecal morphine 1 mg per ml to start at 100 mcg/day. Catheter tip will be the T8 vertebral body. Plan and Disposition:: We will follow-up with this patient in 1 week we will reevaluate efficacy of this pump trial. If successful we will plan on permanent placement with intrathecal morphine 1 mg/mL to start at 100 mcg/day. Catheter tip will be the T8 vertebral body. Patient is to come completely off of his [place] prior to implant.
== END 2023-08-16 13:21 | disposition home or self-care (01) ==
LOC: SC.PAINP 10:41
PROVIDERS: PCP Nurse Practitioner Family; Visit Provider Anesthesiology
DX: M51.16 Intervertebral disc disorders with radiculopathy, lumbar region (principal)
CPT/HCPCS: 62323

== ENCOUNTER 2023-08-21 07:44 | Inpatient (IN) | payer MEDICARE, SELFPAY ==
[2023-08-21] VITALS (31 sets, daily range): BP systolic 108–209; BP diastolic 70–145; PULSE 67–98; RESP 14–18; TEMP 35.7–37.3; O2SAT 92–100; BMI 22.0
--- NOTE | 2023-08-21 07:52 | CT_ITS ---
FINAL REPORT TECHNIQUE: Pre-and postcontrast images of the abdomen and pelvis were performed by computed tomography. Extensive 3-D reconstruction images were performed. A CTA was performed. This study was performed with techniques to keep radiation doses as low as reasonably achievable (ALARA). Individualized dose reduction techniques using automated exposure control or adjustment of mA and/or kV according to the patient''s size were employed. CLINICAL HISTORY: severe generalized abdominal/pelvic pain COMPARISON: None FINDINGS: ABDOMEN: Precontrast images demonstrate no evidence of nephrolithiasis. No adrenal masses are identified. The liver, spleen and pancreas are unremarkable. There are fluid-filled distended small bowel loops with mesenteric edema and decompressed distal small bowel. Findings are consistent with mid small bowel obstruction. There are postoperative changes in the anterior abdomen and pelvic wall. There is no evidence of abdominal aortic aneurysm or dissection. There are moderate vascular calcifications. The SMA, celiac axis, and LAURITA are patent. There is no evidence of renal artery stenosis. PELVIS: There are postoperative changes in the lower lumbar spine, pelvis, and left femur. There is no evidence of iliac artery stenosis or occlusion. IMPRESSION: Mid small bowel obstruction. Edema and small bowel mesentery may be inflammatory. Bowel ischemia is not excluded. Reviewed, Interpreted and Dictated by Lorne Lanier III, MD Transcribed by Ladonna Boone Authenticated and [facility]
[2023-08-21 08:16] LABS: Basophils # 0.1 K/mm3 (0-0.2); Basophils % 0.4 % (0.1-2.0); Eosinophils # 0.1 K/mm3 (0.0-0.4); Eosinophils % 0.8 % (0.1-12.0); Hematocrit 44.5 % (42.0-52.0); Hemoglobin 15.4 g/dL (14.1-18.0); Lymphocytes # 1.9 K/mm3 (0.7-4.5); Lymphocytes % 14.2 % (10-50); Mean Corpuscular HGB Conc 34.6 g/dL (31.8-35.4); Mean Corpuscular Hemoglobin 34.9 pg (27.0-31.2); Mean Corpuscular Volume 100.9 fl (80-94); Mean Platelet Volume 8.5 fl (7.4-10.4); Monocytes # 0.4 K/mm3 (0.1-1.0); Monocytes % 3.4 % (1.7-9.3); Neutrophils # 10.7 K/mm3 (1.8-7.8); Neutrophils % 81.3 % (37.0-80.0); Platelet Count 368 K/mm3 (142-424); Red Blood Count 4.41 M/mm3 (4.60-6.20); Red Cell Distribution Width 12.7 % (11.5-17.5); White Blood Count 13.2 K/mm3 (4.8-10.8)
--- NOTE | 2023-08-21 08:16 | HMH.EDGENADL ---
Discharge Plan Disposition Patient Disposition: Admitted Chief Complaint: Abdominal Pain Prescriptions Prescriptions: No Action Zyrtec 10 mg capsule 10 mg PO DAILY PRN (Reason: allergy symptoms) 30 Days Qty: 30 5RF sertraline 25 mg tablet 25 mg PO DAILY 30 Days Qty: 30 2RF methocarbamol 500 mg tablet 500 mg PO HS Qty: 30 0RF hydrocodone-acetaminophen 1 EACH tablet 1 tab PO QID Qty: 120 0RF gabapentin [Neurontin] 800 mg tablet 800 mg PO QID Qty: 120 0RF Referrals Follow up/Referrals: Senia Espinoza APRN [Primary Care Provider] - See instructions Clinical Impressions Clinical Impression: Complete obstruction of small intestine Instructions Patient Instructions: DI for Acute Abdominal Pain Discharge ED Provider: Jesus Esquivel General Adult HPI General Chief complaint: Abdominal Pain Stated complaint: ABDOMINAL PAIN AND BACK PAIN Time Seen by Provider: 08/21/23 07:49 Mode of Arrival: Ambulatory Source of Information: Patient Limitations: No Limitations Description of Symptoms (Recalled from ER Triage Doc. by RN): 73 yo M presents to ED with c/o abdominal pain that began last night. got worse this am. pt reports associated vomitting and nausea. History of Present Illness HPI narrative: 73-year-old male, reported history of diverticulitis, GERD, carotid artery stenosis, asthma, hypertension presents with sudden onset severe generalized abdominal pain, worse in the epigastrium. Patient reports that symptoms started last night and have been worsening. He did not take any medication at home for symptoms. He denies prior history of similar symptoms. Reports vomiting, nonbloody, nonbilious. Reports mild diarrhea recently. Reports no recent fever or infection. Denies shortness of breath. Related Data Previous Rx's Medication Instructions Recorded cetirizine 10 mg capsule (Zyrtec) 10 mg PO DAILY PRN allergy 07/17/23 symptoms 30 days #30 caps sertraline 25 mg tablet 25 mg PO DAILY 30 days #30 tabs 07/17/23 gabapentin 800 mg tablet 800 mg PO QID #120 tabs 08/01/23 (Neurontin) hydrocodone 10 mg-acetaminophen 1 tab PO QID Pain #120 tabs 08/01/23 325 mg tablet methocarbamol 500 mg tablet 500 mg PO HS #30 tabs 08/01/23 Allergies Allergy/AdvReac Type Severity Reaction Status Date / Time acetaminophen [From PERCOCET] Allergy Severe S-SWELLS-OR Verified 07/29/23 11:18 AL/THROAT oxycodone [From PERCOCET] Allergy Severe S-SWELLS-OR Verified 07/29/23 11:18 AL/THROAT PFSH PFSH Disclaimer: The information contained in this section may have been updated after the patient was seen, as this information can be updated by other users. Medical History Asthma BPH (benign prostatic hyperplasia) Hypertension Surgical History History of back surgery History of colectomy for diveticulitis History of elbow surgery History of splenectomy History of surgery on lower extremity Hx of colonoscopy Family History Other No significant family history Social History (Updated 08/16/23 @ 11:28 by Carie Moreno RN) Smoking Status: Current every day smoker second hand exposure: No alcohol intake: never substance use type: denies use current occupational status: other Travel in the last 8 weeks: None housing: house caffeine: Yes ROS Obtained: Yes All systems reviewed & no additional complaints except as documented Physical Exam General General appearance: alert and in distress Head Head exam: atraumatic and normocephalic Eye Eye exam: Present normal appearance, PERRL and EOMI ENT ENT exam: Present normal oropharynx and normal external ear exam Neck Neck exam: Present normal inspection and full ROM Chest Chest inspection: Present normal inspection and symmetric chest wall rise; Absent tendern
--- NOTE | 2023-08-21 08:17 | CT_ITS ---
FINAL REPORT CLINICAL HISTORY: severe chest/back pain COMPARISON: None FINDINGS: Thin section axial CT images of the chest were obtained with contrast. 3D reformatted images were also obtained. This study was performed with techniques to keep radiation doses as low as reasonably achievable (ALARA). Individualized dose reduction techniques using automated exposure control or adjustment of mA and/or kV according to the patient's size were employed. There is no evidence of pulmonary embolism. There is no evidence of thoracic aortic aneurysm or dissection. There is no evidence of mediastinal or hilar mass or adenopathy. There is no evidence of pulmonary mass or nodule. No localized inflammatory process is seen within the lungs. The esophagus is moderately distended and fluid-filled which may represent reflux or distal stricture. IMPRESSION: No evidence of pulmonary embolism. No mass or localized inflammatory process. Reviewed, Interpreted and Dictated by Lorne Lanier III, MD Transcribed by Ladonna Boone Authenticated and [facility]
--- NOTE | 2023-08-21 08:17 | PC.NURSE ---
Fall Risk and Allergy band placed on patients left wrist.
[2023-08-21 08:21] LABS: Chloride 103 mmol/L (98-107); Sodium 142 mmol/L (136-145)
[2023-08-21 08:23] LABS: Blood Urea Nitrogen 12 mg/dl (9-20); Creatinine Clearance Estimated 63 mL/min (50-200); Estimated Glomerular Filt Rate 111 ml/min (>60); GFR (African American) 135 ML/MIN (>60)
[2023-08-21 08:24] LABS: Alanine Aminotransferase 21 U/L (12-78); Albumin Level 4.7 g/dl (3.5-5.0); Albumin/Globulin Ratio 1.3 (1.1-1.8); Alkaline Phosphatase 105 U/L (38-126); Aspartate Amino Transferase 36 U/L (17-59); Bilirubin,Total 0.6 mg/dl (0.2-1.3); Calcium 9.3 mg/dl (8.4-10.2); Carbon Dioxide 29 mmol/L (22.0-30.0); Globulin 3.5 g/dL (1.3-3.2); Glucose 160 mg/dl (74-100); INR 1.02 (0.9-1.1); Lipase 56 U/L (23-300); Total Protein,Serum 8.2 g/dl (6.3-8.2)
[2023-08-21 08:26] LABS: Lactic Acid 1.5 mmol/L (0.7-2.1)
--- NOTE | 2023-08-21 08:26 | ECG_ITS ---
APPROVED REPORT Exam: Resting ECG HR:69 bpm ECG Measurements Heart Rate 69 AXES SC 147 P 74 QRSd 83 QRS -14 QT 400 T 62 QTc 419 Conclusion SINUS RHYTHM NORMAL ECG UNCONFIRMED REPORT Electronically signed by : Star Childress MD 08/22/2023 21:29:00
[2023-08-21 08:36] LABS: Troponin I < 0.01 ng/ml (0.00-0.034)
--- NOTE | 2023-08-21 10:06 | PC.NURSE ---
rounded on pt. pt helped to reposition in bed. pt states no other needs at this time.
--- NOTE | 2023-08-21 10:16 | PC.NURSE ---
ER MD Esquivel aware pt bp, no new orders at time
--- NOTE | 2023-08-21 10:34 | PC.NURSE ---
ER MD Esquivel speaking with radiologist
--- NOTE | 2023-08-21 10:44 | PC.NURSE ---
Dr. Sewell is on for General Surgery Consult, called their office and message given to staff for Dr. Sewell to return Dr. Esquivel call.
--- NOTE | 2023-08-21 11:11 | PC.NURSE ---
Dr. Esquivel s/w Dr. Sewell
--- NOTE | 2023-08-21 11:18 | XR_ITS ---
FINAL REPORT CLINICAL HISTORY: NG tube placement COMPARISON: 04/15/2020 FINDINGS: SINGLE-VIEW CHEST The heart size is normal. The mediastinum is normal. The lungs are clear. There is no pneumothorax. NG tube tip is seen in the region of the cardia of the stomach. IMPRESSION: NG tube as above. Reviewed, Interpreted and Dictated by Lorne Lanier III, MD Transcribed by Holly Garcia Authenticated and [facility]
--- NOTE | 2023-08-21 11:20 | PC.NURSE ---
Dr. Sewell at [facility]
--- NOTE | 2023-08-21 11:22 | PC.NURSE ---
ER MD Esquivel speaking with dr. sidhu
--- NOTE | 2023-08-21 11:29 | PC.NURSE ---
pre-op staff at [facility] to take pt to surgery
--- NOTE | 2023-08-21 11:51 | EXP.SURG.CON ---
History of Present Illness *Admission Date: 08/21/23 *Reason for visit:: Small bowel obstruction *History of present illness: This is a 73-year-old gentleman who presented to emergency department for evaluation regarding severe abdominal pain. A CT scan revealed changes consistent with mid small bowel obstruction with possible concomitant ischemia. [facility] Disclaimer: The information contained in this section may have been updated after the patient was seen, as this information can be updated by other users. Medical History Asthma BPH (benign prostatic hyperplasia) Hypertension Surgical History History of back surgery History of colectomy for diveticulitis History of elbow surgery History of splenectomy History of surgery on lower extremity Hx of colonoscopy Family History Other No significant family history Social History (Updated 08/16/23 @ 11:28 by Carie Moreno RN) Smoking Status: Current every day smoker second hand exposure: No alcohol intake: never substance use type: denies use current occupational status: other Travel in the last 8 weeks: None housing: house caffeine: Yes Meds Home Medications and Allergies Home Medications Medication Instructions Recorded Confirmed Type cetirizine 10 mg capsule (Zyrtec) 10 mg PO DAILY PRN allergy 07/17/23 08/21/23 Rx symptoms 30 days #30 caps sertraline 25 mg tablet 25 mg PO DAILY 30 days #30 tabs 07/17/23 08/21/23 Rx gabapentin 800 mg tablet 800 mg PO QID #120 tabs 08/01/23 08/21/23 Rx (Neurontin) hydrocodone 10 mg-acetaminophen 1 tab PO QID Pain #120 tabs 08/01/23 08/21/23 Rx 325 mg tablet methocarbamol 500 mg tablet 500 mg PO HS #30 tabs 08/01/23 08/21/23 Rx New Prescriptions to Start Prescriptions: Allergies Allergy/AdvReac Type Severity Reaction Status Date / Time acetaminophen [From PERCOCET] Allergy Severe S-SWELLS-OR Verified 07/29/23 11:18 AL/THROAT oxycodone [From PERCOCET] Allergy Severe S-SWELLS-OR Verified 10/02/23 11:18 AL/THROAT Exam (Inpt) Vital signs and Labs for Last 24 Hours: Temp Pulse Resp BP Pulse Ox O2 Del Method 98.2 F 75 17 192/106 H 98 Room Air 08/21/23 08:09 08/21/23 10:45 08/21/23 08:09 08/21/23 10:45 08/21/23 10:45 08/21/23 10:15 Laboratory Results - last 24 hr 08/21/23 08:02: WBC 13.2 H, RBC 4.41 L, Hgb 15.4, Hct 44.5, MCV 100.9 H, MCH 34.9 H, MCHC 34.6, RDW 12.7, Plt Count 368, MPV 8.5, Neut % (Auto) 81.3 H, Lymph % (Auto) 14.2, Piatt % (Auto) 3.4, Eos % (Auto) 0.8, Baso % (Auto) 0.4, Neut # (Auto) 10.7 H, Lymph # (Auto) 1.9, Piatt # (Auto) 0.4, Eos # (Auto) 0.1, Baso # (Auto) 0.1, PT 11.0, INR 1.02, Sodium 142, Potassium 4.0, Chloride 103, Carbon Dioxide 29, Anion Gap 14.0, BUN 12, Creatinine 0.70, Estimated Creat Clear 63, Estimated GFR 111, Est GFR ( Amer) 135, Glucose 160 H, Lactate 1.5, Calcium 9.3, Total Bilirubin 0.6, AST 36, ALT 21, Alkaline Phosphatase 105, Troponin I < 0.01, Total Protein 8.2, Albumin 4.7, Globulin 3.5 H, Albumin/Globulin Ratio 1.3, Lipase 56 I & O for Labs for Last 24 Hours: Intake & Output 08/18/23 08/19/23 08/20/23 08/21/23 11:59 11:59 11:59 11:59 Weight 145 lb Constitutional: moderate distress Respiratory: Absent respiratory distress Cardiac: Absent Tachycardia GI: Present soft, tenderness (Fairly severe global tenderness), guarding and rebound Results Labs 08/21/23 08:02 08/21/23 08:02 Labs: Laboratory Results - last 24 hr 08/21/23 08:02: WBC 13.2 H, RBC 4.41 L, Hgb 15.4, Hct 44.5, MCV 100.9 H, MCH 34.9 H, MCHC 34.6, RDW 12.7, Plt Count 368, MPV 8.5, Neut % (Auto) 81.3 H, Lymph % (Auto) 14.2, Piatt % (Auto) 3.4, Eos % (Auto) 0.8, Baso % (Auto) 0.4, Neut # (Auto) 10.7 H, Lymph # (Auto) 1.9, Piatt # (Auto) 0.4, Eos # (Auto
--- NOTE | 2023-08-21 12:06 | P.PNANES_ITS ---
[facility] Disclaimer: The information contained in this section may have been updated after the patient was seen, as this information can be updated by other users. Medical History Asthma BPH (benign prostatic hyperplasia) Hypertension Surgical History History of back surgery History of colectomy for diveticulitis History of elbow surgery History of splenectomy History of surgery on lower extremity Hx of colonoscopy Family History Other No significant family history Social History (Updated 08/16/23 @ 11:28 by Carie Moreno RN) Smoking Status: Current every day smoker second hand exposure: No alcohol intake: never substance use type: denies use current occupational status: other Travel in the last 8 weeks: None housing: house caffeine: Yes [facility] Anesthesia Checklist Patient Identification Patient Identification: Arm Band and Verbal (Name & ) Structural Data Admitted From: Emergency Dept Planned Operative Procedure/s: Exp. Laparotomy; poss. bowel Resection; poss ostomy Consent for Planned Operative Procedure(s) Verified: Yes Verified Documents: Surgical Consent and History and Physical NPO Status Verified Time NPO: 18:00 Chart Verification Results Verified: CBC, BMP, PT, PTT, INR and ECG Additional verifications Patient : No Anesthesia Reactions: No Hx Blood Transfusions: No Blood Transfusion Reaction: No Cephalosporin Allergy: No Previous Colonoscopy: Yes Cardiovascular Assessment Heart Sounds: S1 & S2 Pulse Rhythm: Irregular Peripheral Edema: No Airway Assessment Mallampati Score:: Class II C-Spine Mobility Assessed: Yes (Limited extension) TMJ Mobility Assessed: Yes Dentition: Edentulous Neurological Assessment Level of Consciousness: Awake, Alert, Appropriate and Follows Commands Hx Seizures: No Numbness or tingling in extremities: No Anesthesia Plan Anesthesia Risk discussed: Yes Anesthesia Plan: Verified ASA Class: III (Emergency) Anesthesia Type: General
[2023-08-21 12:48] LABS: Microscopic,Cath URINE MICROSCOPIC (MICROSCOPIC)
[2023-08-21 12:52] LABS: Appearance,Urine/Cath CLEAR (Clear); Bilirubin,Cath Negative (Negative); Blood, Urine/Cath Negative (Negative); Color,Urine/Cath YELLOW (Yellow); Glucose,Urine/Cath (UA) Negative (Negative); Ketones,Urine/Cath 1+ (Negative); Leukocyte Esterase,Cath Negative (Negative); Nitrate,Cath Negative (Negative); PH,Urine/Cath 6.5 (5.0-8.5); Protein,Urine/Cath Negative (Negative); Urobilinogen,Cath 0.2 EU/dl (0.2)
--- NOTE | 2023-08-21 14:46 | EXP.OP.NOTE ---
Date of procedure: 08/21/23 Pre-op Diagnosis:: Small bowel obstruction Post-op Diagnosis:: Same Procedure performed:: Exploratory laparotomy with extensive lysis of adhesions Surgeon:: Jostin Sewell MD Anesthesia: GETRodríguez Estimated blood loss (mL): 125 Operative findings:: Severe intra-abdominal adhesions creating multiple areas of high-grade partial obstruction No obvious bowel ischemia Operative note:: After informed consent was obtained the patient was taken to the operating room and placed in the supine position. General anesthesia was induced and his abdomen was prepped and draped in a sterile fashion. A midline laparotomy incision was made along his prior laparotomy scar. The abdomen was carefully entered sharply after transection through the known large hernia mesh in the mid abdomen. Dense adhesions of the small bowel and omentum to the anterior abdominal wall were immediately noted. No obvious enterotomy was seen. No areas of obvious ischemia or significant fluid collections were encountered. Profound adhesions throughout the abdomen were noted. Adhesions along the anterior abdominal wall, between omentum and small bowel/colon, between small bowel/small bowel, and between small bowel/colon. A combination of sharp dissection, blunt dissection, and electrocautery were utilized to take down these adhesions. Dissection was exceptionally difficult requiring well over 1 hour of extended operative time. Once the adhesions were freed, the small bowel was evaluated from the ligament of Treitz to the colon. No obvious areas of ischemia were noted. Throughout the dissection it was clear that multiple areas of partial high-grade obstruction were apparent as no single adhesive band was the causative factor. The midline incision to include transected mesh was reapproximated with #2 Novafil. Skin was then stapled and dressings were applied. The patient was transferred to recovery in stable condition after extubation. Condition: stable Disposition: PACU Specimens:: None Complications:: No immediate
--- NOTE | 2023-08-21 15:07 | P.PNANES_ITS ---
[facility] Anesthesia Record Part I Anesthesia Record I Intake, IV Amount: 2,500 Hydration: Adequate Estimated blood loss (mL): 450 Urine output (mL): 250 Blood Products used (#): none Blood Pressure: 181/113 SaO2: 98 Pulse Rate: 67 Airway Patency: Patent Respiratory Rate: 14 Temperature: 96.3 F Patient is:: Awake and Stable Stable to PACU at:: 14:58
--- NOTE | 2023-08-21 15:38 | PC.NURSE ---
arrived to floor by bed from surgery
--- NOTE | 2023-08-21 17:26 | EXP.HP ---
History of Present Illness *Admission Date: 08/21/23 *Reason for visit:: Abdominal pain *History of present illness: Mr. Jones is a 73-year-old male with history of multiple abdominal surgeries, GERD, diverticulosis, asthma, hypertension. Presented to the ER this morning with acute onset of severe abdominal pain that occurred last night. Accompanied by nausea and vomiting. Vomit was nonbloody and nonbilious. Some mild diarrhea recently. Denies any shortness of breath, chest pain, sick contacts. Eval in the ER with imaging concerning for small bowel obstruction. Surgery was consulted and patient taken urgently to the OR for further evaluation. Medicine consulted for admission. Reviewed chart, CT showed changes consistent with mid small bowel obstruction. After arrival to the floor, patient is stable on room air. Has an NG in his left nare. On MANAGER COLLEGE pump. Hemodynamically stable. Unable to get further history aside from chart review given patient's sedation [facility] Disclaimer: The information contained in this section may have been updated after the patient was seen, as this information can be updated by other users. Medical History Asthma BPH (benign prostatic hyperplasia) Hypertension Surgical History History of back surgery History of colectomy History of elbow surgery History of splenectomy History of surgery on lower extremity Hx of colonoscopy Family History No significant family history Social History Smoking Status: Current every day smoker second hand exposure: No alcohol intake: never substance use type: denies use current occupational status: other Travel in the last 8 weeks: None housing: house caffeine: Yes Review of Systems Review of Systems Review of systems (narrative): 14 point review of systems performed, pertinent positives and negatives as per HPI Meds Home Medications and Allergies Home Medications Medication Instructions Recorded Confirmed Type cetirizine 10 mg capsule (Zyrtec) 10 mg PO DAILY PRN allergy 07/17/23 08/21/23 Rx symptoms 30 days #30 caps sertraline 25 mg tablet 25 mg PO DAILY 30 days #30 tabs 07/17/23 08/21/23 Rx gabapentin 800 mg tablet 800 mg PO QID #120 tabs 08/01/23 08/21/23 Rx (Neurontin) hydrocodone 10 mg-acetaminophen 1 tab PO QID Pain #120 tabs 08/01/23 08/21/23 Rx 325 mg tablet methocarbamol 500 mg tablet 500 mg PO HS #30 tabs 08/01/23 08/21/23 Rx New Prescriptions to Start Prescriptions: Allergies Allergy/AdvReac Type Severity Reaction Status Date / Time acetaminophen [From PERCOCET] Allergy Severe S-SWELLS-OR Verified 07/29/23 11:18 AL/THROAT oxycodone [From PERCOCET] Allergy Severe S-SWELLS-OR Verified 07/29/23 11:18 AL/THROAT Exam Data for Last 24 hours Vital signs and Labs for Last 24 Hours: Temp Pulse Resp BP Pulse Ox O2 Del Method 98.8 F 89 17 161/94 H 97 Room Air 08/21/23 17:10 08/21/23 17:10 08/21/23 17:10 08/21/23 17:10 08/21/23 17:10 08/21/23 17:10 Laboratory Results - last 24 hr 08/21/23 08:02: WBC 13.2 H, RBC 4.41 L, Hgb 15.4, Hct 44.5, MCV 100.9 H, MCH 34.9 H, MCHC 34.6, RDW 12.7, Plt Count 368, MPV 8.5, Neut % (Auto) 81.3 H, Lymph % (Auto) 14.2, Bailey % (Auto) 3.4, Eos % (Auto) 0.8, Baso % (Auto) 0.4, Neut # (Auto) 10.7 H, Lymph # (Auto) 1.9, Bailey # (Auto) 0.4, Eos # (Auto) 0.1, Baso # (Auto) 0.1, PT 11.0, INR 1.02, Sodium 142, Potassium 4.0, Chloride 103, Carbon Dioxide 29, Anion Gap 14.0, BUN 12, Creatinine 0.70, Estimated Creat Clear 63, Estimated GFR 111, Est GFR ( Amer) 135, Glucose 160 H, Lactate 1.5, Calcium 9.3, Total Bilirubin 0.6, AST 36, ALT 21, Alkaline Phosphatase 105, Troponin I < 0.01, Total Protein 8.2, Albumin 4.7, Globulin 3.5 H, Albumin/Globulin Ratio 1.3
[2023-08-22] VITALS (14 sets, daily range): BP systolic 123–198; BP diastolic 62–107; PULSE 75–96; RESP 16–20; TEMP 35.7–37.5; O2SAT 92–100; BMI 22.6
--- NOTE | 2023-08-22 05:07 | PC.NURSE ---
Patient rested well this shift. Pain reported this shift, educated patient on SUPERINTENDENT [employer] pump with relief noted. NG in place to low wall suction, midline abdominal incision dressing clean dry and intact. Harris cath draining at bedside. Patient educated and encouraged on incentive spirometer. Call guillen and [employer] pump in reach POC ongoing.
[2023-08-22 06:31] LABS: Lymphocytes # 1.6 K/mm3 (0.7-4.5); Monocytes # 0.8 K/mm3 (0.1-1.0); Red Cell Distribution Width 12.7 % (11.5-17.5)
[2023-08-22 06:59] LABS: Chloride 106 mmol/L (98-107)
[2023-08-22 07:00] LABS: Potassium 4.1 mmoL/L (3.5-5.1); Sodium 137 mmol/L (136-145)
[2023-08-22 07:02] LABS: Alanine Aminotransferase 17 U/L (12-78); Alkaline Phosphatase 61 U/L (38-126); Anion Gap 7.1 mEq/L (5-15); Aspartate Amino Transferase 28 U/L (17-59); Blood Urea Nitrogen 17 mg/dl (9-20); Carbon Dioxide 28 mmol/L (22.0-30.0); Creatinine Clearance Estimated 65 mL/min (50-200); Estimated Glomerular Filt Rate 83 ml/min (>60); GFR (African American) 101 ML/MIN (>60)
[2023-08-22 07:03] LABS: Albumin Level 3.1 g/dl (3.5-5.0); Albumin/Globulin Ratio 1.2 (1.1-1.8); Globulin 2.5 g/dL (1.3-3.2); Glucose 141 mg/dl (74-100); Magnesium 1.6 mg/dl (1.6-2.3); Total Protein,Serum 5.6 g/dl (6.3-8.2)
[2023-08-22 07:10] LABS: Basophils % 0.3 % (0.1-2.0); Eosinophils % 0.1 % (0.1-12.0); Hematocrit 34.2 % (42.0-52.0); Lymphocytes % 18.4 % (10-50); Mean Corpuscular HGB Conc 34.2 g/dL (31.8-35.4); Mean Corpuscular Hemoglobin 34.5 pg (27.0-31.2); Mean Corpuscular Volume 100.8 fl (80-94); Mean Platelet Volume 8.2 fl (7.4-10.4); Monocytes % 9.2 % (1.7-9.3); Neutrophils # 6.1 K/mm3 (1.8-7.8); Platelet Count 307 K/mm3 (142-424); White Blood Count 8.5 K/mm3 (4.8-10.8)
--- NOTE | 2023-08-22 07:13 | EXP.SURG.PN ---
Subjective Narrative: Expected postoperative pain Exam Data for Last 24 hours Vital signs and Labs for Last 24 Hours: Temp Pulse Resp BP Pulse Ox O2 Del Method 98.6 F 88 16 127/68 98 Room Air 08/22/23 06:00 08/22/23 06:00 08/22/23 06:00 08/22/23 06:00 08/22/23 06:00 08/22/23 06:47 Laboratory Results - last 24 hr 08/21/23 08:02: WBC 13.2 H, RBC 4.41 L, Hgb 15.4, Hct 44.5, MCV 100.9 H, MCH 34.9 H, MCHC 34.6, RDW 12.7, Plt Count 368, MPV 8.5, Neut % (Auto) 81.3 H, Lymph % (Auto) 14.2, [place] % (Auto) 3.4, Eos % (Auto) 0.8, Baso % (Auto) 0.4, Neut # (Auto) 10.7 H, Lymph # (Auto) 1.9, [place] # (Auto) 0.4, Eos # (Auto) 0.1, Baso # (Auto) 0.1, PT 11.0, INR 1.02, Sodium 142, Potassium 4.0, Chloride 103, Carbon Dioxide 29, Anion Gap 14.0, BUN 12, Creatinine 0.70, Estimated Creat Clear 63, Estimated GFR 111, Est GFR ( Amer) 135, Glucose 160 H, Lactate 1.5, Calcium 9.3, Total Bilirubin 0.6, AST 36, ALT 21, Alkaline Phosphatase 105, Troponin I < 0.01, Total Protein 8.2, Albumin 4.7, Globulin 3.5 H, Albumin/Globulin Ratio 1.3, Lipase 56 08/21/23 10:40: Urine Color Yellow, Urine Appearance Clear, Urine pH 6.5, Ur Specific [place] 1.010, Urine Protein Negative, Urine Glucose (UA) Negative, Urine Ketones 1+, Urine Blood Negative, Urine Nitrate Negative, Urine Bilirubin Negative, Urine Urobilinogen 0.2, Ur Leukocyte Esterase Negative, Urine RBC None, Urine WBC None, Ur Squamous Epith Cells None 08/22/23 05:50: Sodium 137, Potassium 4.1, Chloride 106, Carbon Dioxide 28, Anion Gap 7.1, BUN 17 D, Creatinine 0.90 D, Estimated Creat Clear 65, Estimated GFR 83, Est GFR ( Amer) 101 D, Glucose 141 H, Calcium 8.0 L, Magnesium 1.6, Total Bilirubin 1.0, AST 28, ALT 17, Alkaline Phosphatase 61, Total Protein 5.6 L D, Albumin 3.1 L D, Globulin 2.5, Albumin/Globulin Ratio 1.2 I & O for Last 24 hours: Intake & Output 08/19/23 08/20/23 08/21/23 08/22/23 11:59 11:59 11:59 11:59 Intake Total 3500 / 3500 Output Total 900 / 900 Balance 2600 / 2600 Weight 145 lb 149 lb 7 oz Constitutional Constitutional: no acute distress *Routine Respiratory Exam Respiratory: Absent respiratory distress *Routine Cardiovascular Exam Cardiovascular: Absent tachycardia *Routine Abdominal Exam Comments: Dressings in place. Progress Note: A&P Assessment and plan (1) Complete obstruction of small intestine: Status: Acute Assessment and plan: Overall, doing well status post exploratory laparotomy with extensive lysis of adhesions (postoperative day 1). Continue nasogastric decompression for now Ambulate
[2023-08-22 07:28] LABS: Hemoglobin 11.7 g/dL (14.1-18.0)
--- NOTE | 2023-08-22 10:27 | HMH.PTEV ---
Physical Therapy Evaluation Rehab PT IP Evaluation Start: 08/22/23 07:50 Freq: ONCE Status: Active Protocol: Document 08/22/23 10:22 PHORANJAN (Rec: 08/22/23 10:27 PHORNE [id number]) Subjective/History History History 73 yowm adm to [facility] with SBO, now S/P ex-lap. He has hx of GERD, diverticulosis, HTN, HLD , multiple abdominal surgeries . He reports he lives alone, no steps to enter the home and he generally is independent with all mobility and ADLs without AD. Subjective Subjective He reports abdominal pain post surgery this am. He does agree to mobility assessment. New diagnosis of cancer in past 12 No months? Rehab PT IP Eval Objective Appearance Patient Behavior Appropriate Patient Orientation Person,Place,Time Difficulty following instructions none Speech Pattern Garbled,Patient Baseline Ambulation Patient Able to Ambulate No Balance Ability to Arise Able, uses arms to help Sitting Balance Steady, safe Standing Balance Steady, wide stance Dynamic Sitting Balance Ability Fair Dynamic Standing Balance Ability Fair Transfers Bed Transfer Ability Minimal x 2 (25% assist) Chair Transfer Ability Minimal x 2 (25% assist) Sit to Stand Bed Transfer Ability Minimal x 2 (25% assist) Sit to Stand Chair Transfer Ability Minimal x 2 (25% assist) ROM All Extremities PT ROM Status WFL MMT All Extremities PT MMT WFL Rehab PT IP prob,goals,plan Problems Date of Evaluation: 08/22/23 PT IP Problems Bed Mobility,Transfers,Gait Rehab Potential Rehab Potential Good Plan PT Intervention Plan Bed Mobility,Transfers,Gait, Self care,Therapeutic Exercise PT Plan Frequency Daily Duration LOS Discharge Goals Bed Transfer Ability Contact Guard/Hand Hold Sit to Stand Chair Transfer Ability Contact Guard/Hand Hold Ambulation Assistive Device Rolling Walker Ambulation Distance (feet) 20 Discharge Plan PT Discharge Plan Pt is currently most appropriate for rehab placement once medically stable for d/c. However, if he meets all of his mobility goals he will be appropriate
--- NOTE | 2023-08-22 10:40 | HMH.OTEV ---
OT Inpatient Evaluation Rehab OT IP Evaluation Start: 08/22/23 07:49 Freq: ONCE Status: Active Protocol: Document 08/22/23 10:37 [facility] (Rec: 08/22/23 10:40 [facility] [id number]) Rehab OT IP Assessment Subjective History Pt oriented x 3 on arrival. Pt agreeable to engage in therapy evaluation. 73 yowm adm to [facility] with SBO, now S/P ex-lap. He has hx of GERD, diverticulosis, HTN, HLD, multiple abdominal surgeries. He reports he lives alone, no steps to enter the home and he generally is independent with all mobility and ADLs without AD. he also claims to be independent with all IADLs and continues to drive. Subjective I drove myself to the hospital with my stomach pain. Objective Patient Orientation Person,Place,Birthday Upper Extremity Gross ROM WFL Bed Mobility bed mobility-scooting,bed mobility - supine/sit Assist Level Minimal x 2 (25% assist) Transfer Training Sit/Stand Transfer Assist Level Minimal x 2 (25% assist) Chair Transfer Ability Minimal x 2 (25% assist) Chair Transfer Technique Sit to/from Ambulatory Rehab OT IP prob,goals,plan Problems Date of Evaluation: 08/22/23 OT IP Problems Bed Mobility,Transfers,Balance ,Self care,Safety Rehab Potential Rehab Potential Good Equipment Needs Assistive Devices Rolling / Wheeled Walker Plan OT intervention Plan Bed Mobility,Transfers,Balance ,Self care,Safety,Therapeutic Exercise OT Plan Frequency BID Duration LOS Discharge Goals Bed Mobility Ability Standby Assistance Sit to Stand Chair Transfer Ability Contact Guard/Hand Hold Chair Transfer Ability Contact Guard/Hand Hold Chair Transfer Technique Sit to/from Ambulatory Chair Transfer Assistive Devices Rolling Walker Feeding Ability Assist with Tray Set Up Lower Body Dressing Ability Assistance X1 Upper Body Dressing Ability Assistance X1 Bathing Ability Assistance x1 Performing Toilet Hygiene Ability Assistance X1 Overall Commode/Toilet Transfer Ability Assistance x1 Commode/Toilet Transfer Technique Sit to/from Ambulatory Oral Care Ability
--- NOTE | 2023-08-22 13:01 | P.PNANES_ITS ---
[facility] Anesthesia Record Part II Anesthesia Record Part II Discharge Time: 15:23 Destination: Medical Surgical Department PACU nurse assessment reviewed?: Yes Patient Condition:: Good Anesthesia Complications:: None Swallowing reflex intact?: Yes Airway Patency: Patent Cyanosis?: No Blood Pressure: 198/107 SaO2: 98 Respiratory Rate: 17 Pulse Rate: 75 Temperature: 96.3 F Mental Status: Alert & Oriented Pain level:: 10 Nausea and/or vomitting:: None Intake, IV Amount: 0 Hydration: Adequate
--- NOTE | 2023-08-22 14:29 | EXP.ACUTE.PN ---
Subjective *Date: 08/22/23 *Time: 14:29 Interval history: Pain managed with CLAM SORTER overnight. No nausea or vomiting. Minimal output from NG. No gas or bowel movement yet. afebrile Medical Exam Vital signs and Labs for Last 24 Hours: Vital Signs Temp Pulse Pulse Resp BP BP Pulse Ox 08/22/23 12:00 99.0 F 89 20 129/62 100 08/22/23 10:54 08/22/23 10:00 98.3 F 85 18 123/74 98 08/22/23 08:00 97 08/22/23 08:11 08/22/23 07:48 98.4 F 79 17 137/75 97 08/22/23 06:47 08/22/23 06:00 98.6 F 88 16 127/68 98 08/22/23 05:00 08/22/23 04:00 98.6 F 96 H 16 140/78 99 08/22/23 02:00 98.6 F 92 H 16 144/76 H 99 08/22/23 03:00 08/22/23 01:00 08/22/23 00:10 98.9 F 94 H 16 142/77 H 99 08/21/23 23:00 08/21/23 21:00 08/21/23 22:10 98.7 F 96 H 16 137/81 99 08/21/23 21:10 98.7 F 98 H 16 145/86 H 99 08/21/23 20:10 98.8 F 94 H 17 147/94 H 99 08/21/23 19:10 98.7 F 98 H 16 122/93 H 99 08/21/23 20:00 98 08/21/23 18:10 98.7 F 92 H 16 158/84 H 99 08/21/23 18:30 08/21/23 17:40 98.8 F 94 H 18 156/77 H 98 08/21/23 17:10 98.8 F 89 17 161/94 H 97 08/21/23 16:40 98.6 F 88 16 108/70 L 99 08/21/23 16:25 98.9 F 82 16 165/99 H 100 08/21/23 17:00 08/21/23 16:10 98.7 F 84 16 163/108 H 98 08/21/23 15:55 98.7 F 81 15 169/118 H 97 08/21/23 15:40 98.9 F 81 15 174/105 H 99 08/21/23 15:23 75 17 198/107 H 98 08/21/23 15:13 77 16 193/106 H 97 08/21/23 15:03 74 17 183/108 H 95 08/21/23 14:53 96.3 F L 72 18 163/120 H 92 L 08/22/23 13:03 17 08/21/23 15:09 96.3 F L 67 14 181/113 H O2 Del Method 08/22/23 12:00 Room Air 08/22/23 10:54 Room Air 08/22/23 10:00 Room Air 08/22/23 08:00 Room Air 08/22/23 08:11 Room Air 08/22/23 07:48 Room Air 08/22/23 06:47 Room Air 08/22/23 06:00 Room Air 08/22/23 05:00 Room Air 08/22/23 04:00 Room Air 08/22/23 02:00 Room Air 08/22/23 03:00 Room Air 08/22/23 01:00 Room Air 08/22/23 00:10 Room Air 08/21/23 23:00 Room Air 08/21/23 21:00 Room Air 08/21/23 22:10 Room Air 08/21/23 21:10 Room Air 08/21/23 20:10 Room Air 08/21/23 19:10 Room Air 08/21/23 20:00 Room Air 08/21/23 18:10 Room Air 08/21/23 18:30 Room Air 08/21/23 17:40 Room Air 08/21/23 17:10 Room Air 08/21/23 16:40 Room Air 08/21/23 16:25 Room Air 08/21/23 17:00 Room Air 08/21/23 16:10 Room Air 08/21/23 15:55 Room Air 08/21/23 15:40 Room Air 08/21/23 15:23 Room Air 08/21/23 15:13 Room Air 08/21/23 15:03 Room Air 08/21/23 14:53 Room Air 08/22/23 13:03 08/21/23 15:09 Intake and Output 08/21/23 08/22/23 08/22/23 23:59 07:59 15:59 Intake Total 1000 / 1700 700 / 1700 Output Total 100 / 100 800 / 800 0 / 800 Balance -100 / 2400 200 / 900 700 / 900 Intake: Intake, Total IV Amount 900 / 1600 700 / 1600 Lactated Ringers 1000ML 1,000 800 / 1400 600 / 1400 ml @ 100 mls/hr IV .Q10H MAN[facility]EL[facility] Rx #:[id number] Pipercillin/Tazo 3.375 gm In 0. 100 / 200 100 / 200 9 % Sodium Chloride 50 ml @ 100 mls/hr IV Q6H [facility] Rx#:[id number] Infusion Intake 100 / 100 Pipercillin/Tazo 3.375 gm In 0. 100 / 100 9 % Sodium Chloride 50 ml @ 100 mls/hr IV Q6H [facility] Rx#:[id number] Output: Output, Urine Amount 0 / 0 0 / 0 0 / 0 Output, Urine Amount (Catheter) 800 / 800 [place] 800 / 800 Output, Gastric Drainage Amount 100 / 100 Left Nare 100 / 100 Other: Number of Unmeasured Voids 0 0 0 Weight 67.784 kg Patient Weight 08/22/23 23:59 Weight 67.784 kg Laboratory Results - last 24 hr 08/22/23 05:50: WBC 8.5 D, RBC 3.40 L, Hgb 11.7 L D, Hct 34.2 L, MCV 100.8 H, MCH 34.5 H, MCHC 34.2, RDW 12.7, Plt Count 307, MPV 8.2, Neut % (Auto) 72.0, Lymph % (Auto) 18.4, [place] % (Auto) 9.2, Eos % (Auto) 0.
--- NOTE | 2023-08-22 15:06 | SW/DCPLANNER ---
Addendum entered by Mary Barnes 08/27/23 10:34: The plan for this patient is to discharge home today w/ assistance from daughter and friends. Patient is not interested in home health services at this time. Addendum entered by Mary Barnes 08/26/23 13:54: Patient's daughter was present in room this afternoon. Daughter is agreeable for patient to discharge home and stated that she lives beside patient and will check in on him often. Patient is adamant to return home without home health services. I will continue to follow up w/ this patient. Addendum entered by Mary Barnes 08/26/23 11:42: Patient stated that his plans at this time are to return home w/ his friend. Patient is unable to provide friend's address to me at this time. I did discuss w/ patient the need for home health services at time of discharge. Patient stated that he is not necessarily interested in home health at this time. I informed patient of the importance of home health services: patient stated that he would speak w/ his friend then make a decision regarding home health services. I will continue to follow up w/ this patient until medically stable for discharge. Addendum entered by Mary [place] 08/23/23 15:36: Heather pérez/ [facility] reviewed information and stated that patient's auto insurance has to be changed to [place] in order to proceed w/ referral. Patient is unsure of his auto insurance at this time. I have attempted to contact patient's daughter in demographics: no answer/VM full. I have also made several attempts to contact patient's friend (Holly) in demographics: no answer and no VM. Per patient's nurse (Camryn Russell) patient's sister did call earlier: I have relayed information to Camryn Russell regarding insurance to tell family if they visit this weekend. Patient/family must contact auto insurance and asked they be removed as primary. Addendum entered by Mary Barnes 08/23/23 11:50: Heather Guaman will be onsite to evaluate this patient today. I attempted to contact patient's friend Holly: no answer at this time. Addendum entered by Mary Barnes 08/23/23 10:00: Patient is agreeable for information to be faxed to [facility] incase placement is needed at time of discharge. I will fax patient information to Heather pérez/ [facility] this AM. Discharge date is unknown at this time. Patient has also asked that I contact Holly Jones and update her regarding discharge plans. Original Note: I spoke w/ this patient regarding plans once medically stable for discharge. Patient resides at home alone at this time. I did discuss different discharge options w/ this patient including the following: outpatient PT vs home health vs placement. Patient requested that he have time to think about decision and speak w/ family. I will follow up w/ patient tomorrow morning regarding discharge plans. Discharge date is unknown at this time.
--- NOTE | 2023-08-22 16:50 | PC.NURSE ---
SENIOR INVESTMENT MANAGER cleared and 28mg given this shift.
--- NOTE | 2023-08-22 16:54 | PC.NURSE ---
F/C removed at 11:30.
[2023-08-23] VITALS (9 sets, daily range): BP systolic 146–168; BP diastolic 72–92; PULSE 82–99; RESP 16–20; TEMP 37–37.8; O2SAT 95–100; BMI 22.8
--- NOTE | 2023-08-23 04:23 | PC.NURSE ---
MORHINE B[employer]ING AND FINANCE INSTRUCTOR TOTAL DOSE THIS SHIFT 11 MG.
--- NOTE | 2023-08-23 05:21 | PC.NURSE ---
NO C/O PAIN VOICED. HAS MORPHINE BREWERY PUMPER. TOTAL RECEIVED 11 MG. NO BOWEL SOUNDS HEARD. N/G INTACT TO CONT. LWS. NO OUTPUT ON BULK DELIVERY DRIVER. SOME DRAINAGE IN THE TUBING FLUCTUATING. ABDOMEN IS NOT DISTENDED. DRSG MIDLINE C/D/I.
--- NOTE | 2023-08-23 05:50 | PC.NURSE ---
N/G PLACEMENT VERIFIED, IRRIGATED WITH 40 ML WATER WITH OUT DIFFICULTY.
--- NOTE | 2023-08-23 06:41 | P.PN_ITS ---
Subjective Narrative: The patient states that he is very sore . He reports significant pain but states that it is better than when (he) came in . Exam Data for Last 24 hours Vital signs and Labs for Last 24 Hours: Temp Pulse Resp BP Pulse Ox O2 Del Method O2 Flow Rate 99.3 F 98 H 18 146/81 H 97 Nasal Cannula 2 08/23/23 05:53 08/23/23 05:53 08/23/23 05:53 08/23/23 05:53 08/23/23 05:53 08/23/23 06:30 08/23/23 06:30 Laboratory Results - last 24 hr 08/22/23 05:50: WBC 8.5 D, RBC 3.40 L, Hgb 11.7 L D, Hct 34.2 L, MCV 100.8 H, MCH 34.5 H, MCHC 34.2, RDW 12.7, Plt Count 307, MPV 8.2, Neut % (Auto) 72.0, Lymph % (Auto) 18.4, [place] % (Auto) 9.2, Eos % (Auto) 0.1, Baso % (Auto) 0.3, Neut # (Auto) 6.1, Lymph # (Auto) 1.6, [place] # (Auto) 0.8, Eos # (Auto) 0.0, Baso # (Auto) 0.0, Sodium 137, Potassium 4.1, Chloride 106, Carbon Dioxide 28, Anion Gap 7.1, BUN 17 D, Creatinine 0.90 D, Estimated Creat Clear 65, Estimated GFR 83, Est GFR ( Amer) 101 D, Glucose 141 H, Calcium 8.0 L, Magnesium 1.6, Total Bilirubin 1.0, AST 28, ALT 17, Alkaline Phosphatase 61, Total Protein 5.6 L D, Albumin 3.1 L D, Globulin 2.5, Albumin/Globulin Ratio 1.2 I & O for Last 24 hours: Intake & Output 08/20/23 08/21/23 08/22/23 08/23/23 11:59 11:59 11:59 11:59 Intake Total 3500 / 3500 900 / 900 Output Total 900 / 900 900 / 900 Balance 2600 / 2600 0 / 0 Weight 145 lb 149 lb 7 oz 151 lb Constitutional Constitutional: no acute distress *Routine Respiratory Exam Respiratory: Absent respiratory distress *Routine Cardiovascular Exam Cardiovascular: Absent tachycardia *Routine Abdominal Exam Abdominal: Present soft Comments: Appropriately tender. Dressings in place. No spreading cellulitis. Progress Note: A&P Assessment and plan (1) Complete obstruction of small intestine: Status: Acute Assessment and plan: Overall, doing well status post exploratory laparotomy with extensive lysis of adhesions (postoperative day 1). Continue nasogastric decompression for now (intermittent drain bag trials) Continue ambulation/physical therapy (2) Anxiety: Status: Chronic (3) HTN (hypertension): Status: Chronic (4) HLD (hyperlipidemia): Status: Chronic (5) GERD (gastroesophageal reflux disease): Status: Chronic
[2023-08-23 06:43] LABS: Basophils % 0.3 % (0.1-2.0); Eosinophils % 0.2 % (0.1-12.0); Hematocrit 29.7 % (42.0-52.0); Hemoglobin 10.1 g/dL (14.1-18.0); Lymphocytes # 1.5 K/mm3 (0.7-4.5); Mean Corpuscular HGB Conc 34.1 g/dL (31.8-35.4); Mean Corpuscular Hemoglobin 34.9 pg (27.0-31.2); Mean Corpuscular Volume 102.4 fl (80-94); Mean Platelet Volume 7.6 fl (7.4-10.4); Monocytes # 0.7 K/mm3 (0.1-1.0); Monocytes % 7.5 % (1.7-9.3); Neutrophils # 7.6 K/mm3 (1.8-7.8); Platelet Count 250 K/mm3 (142-424); Red Cell Distribution Width 12.6 % (11.5-17.5); White Blood Count 9.9 K/mm3 (4.8-10.8)
[2023-08-23 06:52] LABS: Chloride 106 mmol/L (98-107); Potassium 3.8 mmoL/L (3.5-5.1); Sodium 138 mmol/L (136-145)
[2023-08-23 06:54] LABS: Alanine Aminotransferase 15 U/L (12-78); Aspartate Amino Transferase 29 U/L (17-59); Blood Urea Nitrogen 17 mg/dl (9-20); Creatinine Clearance Estimated 66 mL/min (50-200); Estimated Glomerular Filt Rate 95 ml/min (>60); GFR (African American) 115 ML/MIN (>60)
[2023-08-23 06:55] LABS: Albumin/Globulin Ratio 1.1 (1.1-1.8); Alkaline Phosphatase 61 U/L (38-126); Anion Gap 7.8 mEq/L (5-15); Bilirubin,Total 0.9 mg/dl (0.2-1.3); Calcium 7.7 mg/dl (8.4-10.2); Carbon Dioxide 28 mmol/L (22.0-30.0); Globulin 2.7 g/dL (1.3-3.2); Glucose 109 mg/dl (74-100); Magnesium 1.8 mg/dl (1.6-2.3); Total Protein,Serum 5.7 g/dl (6.3-8.2)
--- NOTE | 2023-08-23 08:49 | PC.NURSE ---
TECH NOTE; NOTIFIED NURSE OF BLOOD PRESSURE FOR 0800 VITAL SIGNS Jose SANCHEZ, SRNA
--- NOTE | 2023-08-23 11:32 | PC.NURSE ---
courtesy tech note: pt is up to chair with call light within reach and pull alarm attached.
--- NOTE | 2023-08-23 12:57 | DIET.NUTRFU ---
RD interviewed, patient at high risk for malnutrition, current NPO post GI sx. May need supplements added as diet advances.
--- NOTE | 2023-08-23 15:01 | EXP.ACUTE.PN ---
Subjective *Date: 08/23/23 *Time: 15:01 Interval history: Patient has some slight improvement in pain. Still no flatus or gas. NG came out this morning. No nausea or vomiting. Has used HOOKER MACHINE TENDER pump with 18 and was seen in the past 18 hours normally takes hydrocodone 10 mg 4 times a day at home. Stable on room air. Afebrile. Medical Exam Vital signs and Labs for Last 24 Hours: Vital Signs Temp Pulse Resp BP Pulse Ox O2 Del Method O2 Flow Rate 08/23/23 13:00 Room Air 08/23/23 08:00 Room Air 08/23/23 11:57 99.4 F 95 H 18 164/92 H 98 Room Air 08/23/23 11:00 Room Air 08/23/23 09:00 Room Air 08/23/23 10:00 94 H 18 168/88 H 97 Room Air 08/23/23 08:00 99.0 F 90 16 159/78 H 96 Room Air 08/23/23 06:30 Nasal Cannula 2 08/23/23 05:53 99.3 F 98 H 18 146/81 H 97 Nasal Cannula 2 08/23/23 05:00 Nasal Cannula 2 08/23/23 04:00 98.6 F 88 18 152/81 H 98 Nasal Cannula 2 08/23/23 03:00 Nasal Cannula 2 08/23/23 02:00 99.3 F 82 18 161/77 H 100 Nasal Cannula 2 08/23/23 01:00 Nasal Cannula 2 08/22/23 23:00 Nasal Cannula 2 08/22/23 21:00 Nasal Cannula 2 08/22/23 20:00 99 Nasal Cannula 2 08/23/23 00:00 98.9 F 91 H 18 149/72 H 100 Nasal Cannula 2 08/22/23 21:48 99.5 F 93 H 18 160/80 H 92 L Nasal Cannula 2 08/22/23 20:00 98.6 F 81 18 161/85 H 99 Nasal Cannula 2 08/22/23 18:00 98.2 F 87 17 132/78 97 Room Air 08/22/23 17:50 Room Air 08/22/23 15:51 98.3 F 87 18 133/71 97 Room Air 08/22/23 15:49 Room Air Intake and Output 08/22/23 08/23/23 08/23/23 23:59 07:59 15:59 Intake Total 100 / 1800 100 / 100 Output Total 100 / 1300 500 / 950 450 / 950 Balance 0 / 500 -400 / -850 -450 / -850 Intake: Intake, Total IV Amount 100 / 1700 100 / 100 Pipercillin/Tazo 3.375 gm In 0. 100 / 300 100 / 100 9 % Sodium Chloride 50 ml @ 100 mls/hr IV Q6H [facility] Rx#:[id number] Output: Output, Urine Amount 100 / 500 500 / 950 450 / 950 Other: Number of Voids 1 Weight 68.492 kg 68.49 kg Patient Weight 08/23/23 23:59 Weight 68.49 kg Laboratory Results - last 24 hr 08/23/23 06:01: WBC 9.9, RBC 2.90 L, Hgb 10.1 L, Hct 29.7 L, MCV 102.4 H, MCH 34.9 H, MCHC 34.1, RDW 12.6, Plt Count 250, MPV 7.6, Neut % (Auto) 77.0, Lymph % (Auto) 15.0, [place] % (Auto) 7.5, Eos % (Auto) 0.2, Baso % (Auto) 0.3, Neut # (Auto) 7.6, Lymph # (Auto) 1.5, [place] # (Auto) 0.7, Eos # (Auto) 0.0, Baso # (Auto) 0.0, Sodium 138, Potassium 3.8, Chloride 106, Carbon Dioxide 28, Anion Gap 7.8, BUN 17, Creatinine 0.80, Estimated Creat Clear 66, Estimated GFR 95, Est GFR ( Amer) 115, Glucose 109 H, Calcium 7.7 L, Magnesium 1.8 D, Total Bilirubin 0.9, AST 29, ALT 15, Alkaline Phosphatase 61, Total Protein 5.7 L, Albumin 3.0 L, Globulin 2.7, Albumin/Globulin Ratio 1.1 I & O for Labs for Last 24 Hours: Intake & Output 08/20/23 08/21/23 08/22/23 08/23/23 23:59 23:59 23:59 23:59 Intake Total 2500 / 2500 1800 / 1800 100 / 100 Output Total 100 / 100 1200 / 1300 950 / 950 Balance 2400 / 2400 600 / 500 -850 / -850 Weight 65.771 kg 67.784 kg 68.49 kg Constitutional: Present no acute distress and average body habitus Head: Present atraumatic and normocephalic Respiratory: Present normal respiratory effort; Absent accessory muscle use, rhonchi, wheezes or crackles Cardiac: Present Reg Rate and Rhythm GI: Present soft, tenderness (Marginal improvement from yesterday; incision clean dry and intact) and normal bowel sounds; Absent distention Extremities: Present normal inspection and full ROM Skin: Present intact; Absent erythema Neuro: Present Grossly Intact, alert, awake, oriented x 3 and moves all extremities Assessment and Plan *Assessment and plan (1) Complete obstruction of small intestine: Status: Acute Category: Medical Code(s): K56.601 - Complete intestinal obstruction, unspecified
--- NOTE | 2023-08-23 16:39 | PC.NURSE ---
PT IS RESTING IN BED. TOLERATED SITTING UP IN THE CHAIR FOR SEVERAL HOURS THIS SHIFT. PT'S NG TUBE WAS DISLODGED AT 0945 THIS MORNING. PT WAS UNAWARE THAT NG TUBE CAME OUT. PT WAS CONNECTED TO GRAVITY BAG. NOTIFIED OFFICE AND THEY CALLED BACK AND STATED TO MONITOR PT CLOSELY AND IF HE STARTED VOMITING OR ABDOMEN BECOMES DISTENDED THEN THE NG TUBE WOULD HAVE TO BE REINSERTED. PT AMBULATED IN THE BROTHERS THIS AFTERNOON. ABDOMEN SOFT WITH HYPOACTIVE BOWEL SOUNDS. PT STATED THAT HE HAS BEEN PASSING FLATUS THIS AFTERNOON. DRESSING TO THE ABDOMEN C/D/I. MERCHANT MARINER PUMP WAS DC'D THIS MORNING AND HE HAS HAD ONE DOSE OF TORADOL THIS SHIFT. WILL CONTINUE TO MONITOR.
[2023-08-24] VITALS (7 sets, daily range): BP systolic 144–181; BP diastolic 81–93; PULSE 72–86; RESP 16–18; TEMP 36.5–37.2; O2SAT 95–98; BMI 23.2
--- NOTE | 2023-08-24 05:38 | PC.NURSE ---
patient has had restless night with c/o chronic back, neck pain with c/o headache x 2; pt states he does have arthritis and metal in throughout his body; has has Gabapentin dose, Tordol x 2 doses and [place] x 1 dose. BP has been elevated to the systolic range 160-180. Other VS remain WNL. Patient denies nausea or pain in abdomen r/t surgery; dressing is c/d/i; states had has flatulance but no BM. Patient voices no other concerns at this time. Bed at lowest level for safety with alarm on & when in chair has chair alarm on for continued safety. Patient denies having any further concerns at this time.
[2023-08-24 07:35] LABS: Chloride 104 mmol/L (98-107); Potassium 3.4 mmoL/L (3.5-5.1); Sodium 137 mmol/L (136-145)
[2023-08-24 07:37] LABS: Alanine Aminotransferase 14 U/L (12-78); Aspartate Amino Transferase 28 U/L (17-59); Blood Urea Nitrogen 17 mg/dl (9-20); Creatinine Clearance Estimated 67 mL/min (50-200); Estimated Glomerular Filt Rate 111 ml/min (>60); GFR (African American) 135 ML/MIN (>60)
[2023-08-24 07:38] LABS: Albumin/Globulin Ratio 1.2 (1.1-1.8); Alkaline Phosphatase 56 U/L (38-126); Anion Gap 7.4 mEq/L (5-15); Bilirubin,Total 0.9 mg/dl (0.2-1.3); Calcium 7.7 mg/dl (8.4-10.2); Carbon Dioxide 29 mmol/L (22.0-30.0); Globulin 2.6 g/dL (1.3-3.2); Glucose 85 mg/dl (74-100); Total Protein,Serum 5.6 g/dl (6.3-8.2)
--- NOTE | 2023-08-24 07:39 | EXP.ACUTE.PN ---
Subjective *Date: 08/24/23 *Time: 09:40 Interval history: NG out since last night, no nausea or vomiting overnight. Pain stable on oral regimen. Would like to try p.o. intake. Passing flatus but no bowel movement yet. Stable on room air. Afebrile Medical Exam Vital signs and Labs for Last 24 Hours: Vital Signs Temp Pulse Resp BP Pulse Ox O2 Del Method 08/24/23 06:36 Room Air 08/24/23 05:00 Room Air 08/24/23 03:00 Room Air 08/24/23 04:00 98.4 F 82 16 144/85 H 95 Room Air 08/24/23 01:00 Room Air 08/23/23 23:00 Room Air 08/23/23 21:00 Room Air 08/23/23 20:00 96 Room Air 08/24/23 00:00 98.9 F 86 18 181/93 H 95 Room Air 08/23/23 20:00 98.9 F 95 H 20 156/84 H 96 Room Air 08/23/23 19:00 Room Air 08/23/23 17:00 Room Air 08/23/23 15:57 100.0 F H 99 H 18 162/78 H 95 Room Air 08/23/23 15:00 Room Air 08/23/23 13:00 Room Air 08/23/23 08:00 Room Air 08/23/23 11:57 99.4 F 95 H 18 164/92 H 98 Room Air 08/23/23 11:00 Room Air 08/23/23 09:00 Room Air 08/23/23 10:00 94 H 18 168/88 H 97 Room Air 08/23/23 08:00 99.0 F 90 16 159/78 H 96 Room Air Intake and Output 08/23/23 08/23/23 08/24/23 15:59 23:59 07:59 Intake Total 1086 / 1186 1300 / 1300 Output Total 450 / 1350 200 / 1350 400 / 400 Balance -450 / -164 886 / -164 900 / 900 Intake: Intake, Total IV Amount 1086 / 1186 1300 / 1300 Lactated Ringers 1000ML 1,000 1086 / 1086 1200 / 1200 ml @ 100 mls/hr IV .Q10H [facility] Rx #:[id number] Pipercillin/Tazo 3.375 gm In 0. 100 / 100 9 % Sodium Chloride 50 ml @ 100 mls/hr IV Q6H [facility] Rx#:[id number] Output: Output, Urine Amount 450 / 1350 200 / 1350 400 / 400 Other: Number of Voids 1 Number of Unmeasured Voids 0 0 Weight 68.49 kg 69.513 kg Patient Weight 08/24/23 23:59 Weight 69.513 kg I & O for Labs for Last 24 Hours: Intake & Output 08/21/23 08/22/23 08/23/23 08/24/23 23:59 23:59 23:59 23:59 Intake Total 2500 / 2500 1800 / 1800 1186 / 1186 1300 / 1300 Output Total 100 / 100 1200 / 1300 1150 / 1350 400 / 400 Balance 2400 / 2400 600 / 500 36 / -164 900 / 900 Weight 65.771 kg 67.784 kg 68.49 kg 69.513 kg Constitutional: Present no acute distress and average body habitus Head: Present atraumatic and normocephalic Respiratory: Present normal respiratory effort; Absent accessory muscle use, rhonchi, wheezes or crackles Cardiac: Present Reg Rate and Rhythm GI: Present soft, tenderness (Marginal improvement from yesterday; incision clean dry and intact) and normal bowel sounds; Absent distention Extremities: Present normal inspection and full ROM Skin: Present intact; Absent erythema Neuro: Present Grossly Intact, alert, awake, oriented x 3 and moves all extremities Assessment and Plan *Assessment and plan (1) Complete obstruction of small intestine: Status: Acute Category: Medical Code(s): K56.601 - Complete intestinal obstruction, unspecified as to cause (2) Anxiety: Status: Chronic Category: Medical Code(s): F41.9 - Anxiety disorder, unspecified (3) HTN (hypertension): Status: Chronic Qualifiers: Hypertension type: essential hypertension Qualified Code(s): I10 - Essential (primary) hypertension Category: Medical Code(s): I10 - Essential (primary) hypertension (4) HLD (hyperlipidemia): Status: Chronic Qualifiers: Hyperlipidemia type: other hyperlipidemia Qualified Code(s): E78.49 - Other hyperlipidemia Category: Medical Code(s): E78.5 - Hyperlipidemia, unspecified (5) GERD (gastroesophageal reflux disease): Status: Chronic Qualifiers: Esophagitis presence: without esophagitis Qualified Code(s): K21.9 - Gastro-esophageal reflux disease without esophagitis Category: Medical Code(s): K21.9 - Gastro-esophageal
[2023-08-24 07:43] LABS: Basophils % 0.3 % (0.1-2.0); Eosinophils # 0.2 K/mm3 (0.0-0.4); Eosinophils % 1.4 % (0.1-12.0); Hematocrit 24.3 % (42.0-52.0); Hemoglobin 8.5 g/dL (14.1-18.0); Lymphocytes % 18.4 % (10-50); Mean Corpuscular HGB Conc 34.8 g/dL (31.8-35.4); Mean Corpuscular Hemoglobin 34.7 pg (27.0-31.2); Mean Corpuscular Volume 99.9 fl (80-94); Mean Platelet Volume 7.9 fl (7.4-10.4); Monocytes # 0.7 K/mm3 (0.1-1.0); Monocytes % 6.2 % (1.7-9.3); Neutrophils # 8.1 K/mm3 (1.8-7.8); Neutrophils % 73.8 % (37.0-80.0); Platelet Count 242 K/mm3 (142-424); Red Blood Count 2.43 M/mm3 (4.60-6.20); Red Cell Distribution Width 12.7 % (11.5-17.5)
[2023-08-24 08:32] LABS: Magnesium 1.8 mg/dl (1.6-2.3); Phosphorous 2.7 mg/dl (2.5-4.5)
--- NOTE | 2023-08-24 09:49 | EXP.PHA.PN ---
Subjective *Date: 08/24/23 *Time: 09:49 Medical Exam Vital signs and Labs for Last 24 Hours: Vital Signs Temp Pulse Resp BP Pulse Ox O2 Del Method 08/24/23 07:53 97.7 F 74 18 147/84 H 96 Room Air 08/24/23 06:36 Room Air 08/24/23 05:00 Room Air 08/24/23 03:00 Room Air 08/24/23 04:00 98.4 F 82 16 144/85 H 95 Room Air 08/24/23 01:00 Room Air 08/23/23 23:00 Room Air 08/23/23 21:00 Room Air 08/23/23 20:00 96 Room Air 08/24/23 00:00 98.9 F 86 18 181/93 H 95 Room Air 08/23/23 20:00 98.9 F 95 H 20 156/84 H 96 Room Air 08/23/23 19:00 Room Air 08/23/23 17:00 Room Air 08/23/23 15:57 100.0 F H 99 H 18 162/78 H 95 Room Air 08/23/23 15:00 Room Air 08/23/23 13:00 Room Air 08/23/23 11:57 99.4 F 95 H 18 164/92 H 98 Room Air 08/23/23 11:00 Room Air 08/23/23 10:00 94 H 18 168/88 H 97 Room Air Intake and Output 08/23/23 08/24/23 08/24/23 23:59 07:59 15:59 Intake Total 1086 / 1186 1300 / 1300 Output Total 200 / 1350 400 / 400 Balance 886 / -164 900 / 900 Intake: Intake, Total IV Amount 1086 / 1186 1300 / 1300 Lactated Ringers 1000ML 1,000 1086 / 1086 1200 / 1200 ml @ 100 mls/hr IV .Q10H [facility] Rx #:[id number] Pipercillin/Tazo 3.375 gm In 0. 100 / 100 9 % Sodium Chloride 50 ml @ 100 mls/hr IV Q6H [facility] Rx#:[id number] Output: Output, Urine Amount 200 / 1350 400 / 400 Other: Number of Unmeasured Voids 0 0 Weight 69.513 kg Patient Weight 08/24/23 23:59 Weight 69.513 kg Laboratory Results - last 24 hr 08/24/23 06:49: WBC 11.0 H, RBC 2.43 L, Hgb 8.5 L, Hct 24.3 L, MCV 99.9 H, MCH 34.7 H, MCHC 34.8, RDW 12.7, Plt Count 242, MPV 7.9, Neut % (Auto) 73.8, Lymph % (Auto) 18.4, [place] % (Auto) 6.2, Eos % (Auto) 1.4, Baso % (Auto) 0.3, Neut # (Auto) 8.1 H, Lymph # (Auto) 2.0, [place] # (Auto) 0.7, Eos # (Auto) 0.2, Baso # (Auto) 0.0, Sodium 137, Potassium 3.4 L, Chloride 104, Carbon Dioxide 29, Anion Gap 7.4, BUN 17, Creatinine 0.70, Estimated Creat Clear 67, Estimated GFR 111, Est GFR ( Amer) 135, Glucose 85, Calcium 7.7 L, Phosphorus 2.7, Magnesium 1.8, Total Bilirubin 0.9, AST 28, ALT 14, Alkaline Phosphatase 56, Total Protein 5.6 L, Albumin 3.0 L, Globulin 2.6, Albumin/Globulin Ratio 1.2 I & O for Labs for Last 24 Hours: Intake & Output 08/21/23 08/22/23 08/23/23 08/24/23 23:59 23:59 23:59 23:59 Intake Total 2500 / 2500 1800 / 1800 1186 / 1186 1300 / 1300 Output Total 100 / 100 1200 / 1300 1150 / 1350 400 / 400 Balance 2400 / 2400 600 / 500 36 / -164 900 / 900 Weight 65.771 kg 67.784 kg 68.49 kg 69.513 kg The patient's infection will respond to the chosen ABx?: Yes Is the patient receiving the right drug, dose, and route?: Yes Could a more targeted ABx be ordered?: No (WBC 11.0 MD CONTINUING ABX.)
--- NOTE | 2023-08-24 10:54 | EXP.SURG.PN ---
Subjective Patient reports: no new complaints, feels better and flatus Exam Data for Last 24 hours Vital signs and Labs for Last 24 Hours: Temp Pulse Resp BP Pulse Ox O2 Del Method O2 Flow Rate 97.7 F 74 18 147/84 H 96 Room Air 2 08/24/23 07:53 08/24/23 07:53 08/24/23 07:53 08/24/23 07:53 08/24/23 07:53 08/24/23 07:53 08/23/23 06:30 Laboratory Results - last 24 hr 08/24/23 06:49: WBC 11.0 H, RBC 2.43 L, Hgb 8.5 L, Hct 24.3 L, MCV 99.9 H, MCH 34.7 H, MCHC 34.8, RDW 12.7, Plt Count 242, MPV 7.9, Neut % (Auto) 73.8, Lymph % (Auto) 18.4, [place] % (Auto) 6.2, Eos % (Auto) 1.4, Baso % (Auto) 0.3, Neut # (Auto) 8.1 H, Lymph # (Auto) 2.0, [place] # (Auto) 0.7, Eos # (Auto) 0.2, Baso # (Auto) 0.0, Sodium 137, Potassium 3.4 L, Chloride 104, Carbon Dioxide 29, Anion Gap 7.4, BUN 17, Creatinine 0.70, Estimated Creat Clear 67, Estimated GFR 111, Est GFR ( Amer) 135, Glucose 85, Calcium 7.7 L, Phosphorus 2.7, Magnesium 1.8, Total Bilirubin 0.9, AST 28, ALT 14, Alkaline Phosphatase 56, Total Protein 5.6 L, Albumin 3.0 L, Globulin 2.6, Albumin/Globulin Ratio 1.2 I & O for Last 24 hours: Intake & Output 08/21/23 08/22/23 08/23/23 08/24/23 11:59 11:59 11:59 11:59 Intake Total 3500 / 3500 900 / 900 2386 / 2386 Output Total 900 / 900 1200 / 1200 1050 / 1050 Balance 2600 / 2600 -300 / -300 1336 / 1336 Weight 145 lb 149 lb 7 oz 150 lb 15.914 oz 153 lb 4 oz Constitutional Constitutional: no acute distress *Routine Respiratory Exam Respiratory: Absent respiratory distress *Routine Cardiovascular Exam Cardiovascular: Absent tachycardia *Routine Abdominal Exam Abdominal: Present soft Comments: Incision healing without evidence of infection Progress Note: A&P Assessment and plan (1) Complete obstruction of small intestine: Status: Acute Assessment and plan: Overall, doing well status post exploratory laparotomy with extensive lysis of adhesions (postoperative day 3). Limited clear liquids Continue ambulation/physical therapy
--- NOTE | 2023-08-24 18:49 | PC.NURSE ---
Patient received IV antibiotics today no complaints. Vital signs stable.
[2023-08-25] VITALS: BP 163/72; PULSE 86; RESP 16; TEMP 37.2; O2SAT 96
[2023-08-25 04:00] VITALS: BP 149/84; PULSE 73; RESP 16; TEMP 36.7; O2SAT 97; BMI 23.1
--- NOTE | 2023-08-25 04:29 | PC.NURSE ---
Patient VS WNL. Patient c/o pain in back, shoulders, legs, and left side of abd. Recvd Tordol x 1 & Hydrocodone x 1 dose. Patient states after eating dinner he stated his stomach was a little upset and feel a little nauseas. Gave patient dose of zofran and patient states felt better. Patient asked if could get Methocarbinol started at HS as he takes it at home and he states it helps with his back, shoulders and neck. Robert hospitalist restarted medication. Patient walked hallway this shift and did not want SCUDS on as he was states it makes him sweat. Patient bed at lowest level for safety and call light within reach.
--- NOTE | 2023-08-25 06:51 | EXP.ACUTE.PN ---
Subjective *Date: 08/25/23 *Time: 11:37 Interval history: Feeling better, still having some abdominal pain, had bowel movements overnight. No nausea or vomiting. Tolerating clear liquids without difficulty. Passing gas. Afebrile. Ambulating with assistance Medical Exam Vital signs and Labs for Last 24 Hours: Vital Signs Temp Pulse Resp BP Pulse Ox O2 Del Method 08/25/23 05:00 Room Air 08/25/23 04:00 98.0 F 73 16 149/84 H 97 Room Air 08/25/23 03:00 Room Air 08/25/23 01:00 Room Air 08/24/23 23:00 Room Air 08/24/23 21:00 Room Air 08/24/23 20:00 96 Room Air 08/25/23 00:00 98.9 F 86 16 163/72 H 96 Room Air 08/24/23 19:58 98.2 F 86 16 167/81 H 98 Room Air 08/24/23 15:09 98.3 F 72 18 153/84 H 97 Room Air 08/24/23 11:15 98.3 F 74 17 155/87 H 96 Room Air 08/24/23 07:53 97.7 F 74 18 147/84 H 96 Room Air Intake and Output 08/24/23 08/24/23 08/25/23 15:59 23:59 07:59 Intake Total 240 / 1880 240 / 1880 100 / 100 Output Total 550 / 1450 500 / 1450 300 / 300 Balance -310 / 430 -260 / 430 -200 / -200 Intake: Intake, Oral Amount 240 / 480 240 / 480 Intake, Total IV Amount 100 / 100 Pipercillin/Tazo 3.375 gm In 0. 100 / 100 9 % Sodium Chloride 50 ml @ 100 mls/hr IV Q6H [facility] Rx#:[id number] Output: Output, Urine Amount 550 / 1450 500 / 1450 300 / 300 Other: Number of Unmeasured Voids 1 0 0 Number of Bowel Movements 1 Weight 69.4 kg Patient Weight 08/25/23 23:59 Weight 69.4 kg Laboratory Results - last 24 hr 08/24/23 06:49: WBC 11.0 H, RBC 2.43 L, Hgb 8.5 L, Hct 24.3 L, MCV 99.9 H, MCH 34.7 H, MCHC 34.8, RDW 12.7, Plt Count 242, MPV 7.9, Neut % (Auto) 73.8, Lymph % (Auto) 18.4, [place] % (Auto) 6.2, Eos % (Auto) 1.4, Baso % (Auto) 0.3, Neut # (Auto) 8.1 H, Lymph # (Auto) 2.0, [place] # (Auto) 0.7, Eos # (Auto) 0.2, Baso # (Auto) 0.0, Sodium 137, Potassium 3.4 L, Chloride 104, Carbon Dioxide 29, Anion Gap 7.4, BUN 17, Creatinine 0.70, Estimated Creat Clear 67, Estimated GFR 111, Est GFR ( Amer) 135, Glucose 85, Calcium 7.7 L, Phosphorus 2.7, Magnesium 1.8, Total Bilirubin 0.9, AST 28, ALT 14, Alkaline Phosphatase 56, Total Protein 5.6 L, Albumin 3.0 L, Globulin 2.6, Albumin/Globulin Ratio 1.2 I & O for Labs for Last 24 Hours: Intake & Output 08/22/23 08/23/23 08/24/23 08/25/23 23:59 23:59 23:59 23:59 Intake Total 1800 / 1800 1186 / 1186 1780 / 1880 100 / 100 Output Total 1200 / 1300 1150 / 1350 1450 / 1450 300 / 300 Balance 600 / 500 36 / -164 330 / 430 -200 / -200 Weight 67.784 kg 68.49 kg 69.513 kg 69.4 kg Constitutional: Present no acute distress and average body habitus Head: Present atraumatic and normocephalic Respiratory: Present normal respiratory effort; Absent accessory muscle use, rhonchi, wheezes or crackles Cardiac: Present Reg Rate and Rhythm GI: Present soft, tenderness (Marginal improvement from yesterday; incision clean dry and intact) and normal bowel sounds; Absent distention Extremities: Present normal inspection and full ROM Skin: Present intact; Absent erythema Neuro: Present Grossly Intact, alert, awake, oriented x 3 and moves all extremities Assessment and Plan *Assessment and plan (1) Complete obstruction of small intestine: Status: Acute Category: Medical Code(s): K56.601 - Complete intestinal obstruction, unspecified as to cause (2) Anxiety: Status: Chronic Category: Medical Code(s): F41.9 - Anxiety disorder, unspecified (3) HTN (hypertension): Status: Chronic Qualifiers: Hypertension type: essential hypertension Qualified Code(s): I10 - Essential (primary) hypertension Category: Medical Code(s): I10 - Essential (primary) hypertension (4) HLD (hyperlipidemia): Status: Chronic Qualifiers: Hyperlipidemia type: other hyperlipidemia Qualified Code(s): E78.49 - Other hyperlipidemia
[2023-08-25 07:06] LABS: Basophils % 0.4 % (0.1-2.0); Eosinophils # 1.2 K/mm3 (0.0-0.4); Eosinophils % 12.6 % (0.1-12.0); Hematocrit 25.4 % (42.0-52.0); Hemoglobin 8.9 g/dL (14.1-18.0); Lymphocytes % 21.1 % (10-50); Mean Corpuscular HGB Conc 35.2 g/dL (31.8-35.4); Mean Corpuscular Hemoglobin 34.8 pg (27.0-31.2); Mean Corpuscular Volume 99.1 fl (80-94); Mean Platelet Volume 7.7 fl (7.4-10.4); Monocytes # 0.6 K/mm3 (0.1-1.0); Neutrophils # 5.6 K/mm3 (1.8-7.8); Neutrophils % 59.9 % (37.0-80.0); Platelet Count 269 K/mm3 (142-424); Red Blood Count 2.56 M/mm3 (4.60-6.20); Red Cell Distribution Width 12.4 % (11.5-17.5); White Blood Count 9.4 K/mm3 (4.8-10.8)
[2023-08-25 07:11] LABS: Chloride 102 mmol/L (98-107); Potassium 3.2 mmoL/L (3.5-5.1); Sodium 136 mmol/L (136-145)
[2023-08-25 07:14] LABS: Alanine Aminotransferase 15 U/L (12-78); Albumin Level 3.1 g/dl (3.5-5.0); Albumin/Globulin Ratio 1.1 (1.1-1.8); Alkaline Phosphatase 52 U/L (38-126); Anion Gap 5.2 mEq/L (5-15); Aspartate Amino Transferase 27 U/L (17-59); Bilirubin,Total 1.1 mg/dl (0.2-1.3); Blood Urea Nitrogen 11 mg/dl (9-20); Calcium 7.8 mg/dl (8.4-10.2); Carbon Dioxide 32 mmol/L (22.0-30.0); Creatinine Clearance Estimated 67 mL/min (50-200); Estimated Glomerular Filt Rate 111 ml/min (>60); GFR (African American) 135 ML/MIN (>60); Globulin 2.8 g/dL (1.3-3.2); Glucose 96 mg/dl (74-100); Total Protein,Serum 5.9 g/dl (6.3-8.2)
[2023-08-25 07:42] VITALS: BP 156/82; PULSE 65; RESP 16; TEMP 36.9; O2SAT 98
[2023-08-25 07:57] LABS: Magnesium 1.8 mg/dl (1.6-2.3)
--- NOTE | 2023-08-25 09:40 | EXP.SURG.PN ---
Subjective Patient reports: no new complaints, feels better, flatus and bowel movement Exam Data for Last 24 hours Vital signs and Labs for Last 24 Hours: Temp Pulse Resp BP Pulse Ox O2 Del Method O2 Flow Rate 98.4 F 65 16 156/82 H 98 Room Air 2 08/25/23 07:42 08/25/23 07:42 08/25/23 07:42 08/25/23 07:42 08/25/23 07:42 08/25/23 07:42 08/23/23 06:30 Laboratory Results - last 24 hr 08/25/23 06:39: WBC 9.4, RBC 2.56 L, Hgb 8.9 L, Hct 25.4 L, MCV 99.1 H, MCH 34.8 H, MCHC 35.2, RDW 12.4, Plt Count 269, MPV 7.7, Neut % (Auto) 59.9, Lymph % (Auto) 21.1, [place] % (Auto) 6.0, Eos % (Auto) 12.6 H, Baso % (Auto) 0.4, Neut # (Auto) 5.6, Lymph # (Auto) 2.0, [place] # (Auto) 0.6, Eos # (Auto) 1.2 H, Baso # (Auto) 0.0, Sodium 136, Potassium 3.2 L, Chloride 102, Carbon Dioxide 32 H, Anion Gap 5.2, BUN 11 D, Creatinine 0.70, Estimated Creat Clear 67, Estimated GFR 111, Est GFR ( Amer) 135, Glucose 96, Calcium 7.8 L, Magnesium 1.8, Total Bilirubin 1.1, AST 27, ALT 15, Alkaline Phosphatase 52, Total Protein 5.9 L, Albumin 3.1 L, Globulin 2.8, Albumin/Globulin Ratio 1.1 I & O for Last 24 hours: Intake & Output 08/22/23 08/23/23 08/24/23 08/25/23 11:59 11:59 11:59 11:59 Intake Total 3500 / 3500 900 / 900 2386 / 2386 820 / 820 Output Total 900 / 900 1200 / 1200 1050 / 1050 1250 / 1250 Balance 2600 / 2600 -300 / -300 1336 / 1336 -430 / -430 Weight 149 lb 7 oz 150 lb 15.914 oz 153 lb 4 oz 153 lb Constitutional Constitutional: no acute distress *Routine Respiratory Exam Respiratory: Absent respiratory distress *Routine Cardiovascular Exam Cardiovascular: Absent tachycardia *Routine Abdominal Exam Abdominal: Present soft Comments: Incision continues to heal without evidence of infection or other complication. Progress Note: A&P Assessment and plan (1) Complete obstruction of small intestine: Status: Acute Assessment and plan: Overall, doing well status post exploratory laparotomy with extensive lysis of adhesions (postoperative day 4). Full liquids Continue ambulation/physical therapy
[2023-08-25 11:27] VITALS: BP 155/75; PULSE 66; RESP 17; TEMP 36.8; O2SAT 96
[2023-08-25 15:55] VITALS: BP 130/77; PULSE 71; RESP 16; TEMP 37.1; O2SAT 95
[2023-08-25 20:00] VITALS: BP 146/73; PULSE 67; RESP 16; TEMP 37.2; O2SAT 96; O2SAT 97
[2023-08-26] VITALS: BP 142/72; PULSE 71; RESP 16; TEMP 37; O2SAT 96
[2023-08-26 04:00] VITALS: BP 146/71; PULSE 69; RESP 16; TEMP 37; O2SAT 96; BMI 23.1
--- NOTE | 2023-08-26 06:44 | P.PN_ITS ---
Subjective Patient reports: feels better, flatus and bowel movement Exam Data for Last 24 hours Vital signs and Labs for Last 24 Hours: Temp Pulse Resp BP Pulse Ox O2 Del Method O2 Flow Rate 98.6 F 69 16 146/71 H 96 Room Air 2 08/26/23 04:00 08/26/23 04:00 08/26/23 04:00 08/26/23 04:00 08/26/23 04:00 08/26/23 06:19 08/23/23 06:30 Laboratory Results - last 24 hr 08/25/23 06:39: WBC 9.4, RBC 2.56 L, Hgb 8.9 L, Hct 25.4 L, MCV 99.1 H, MCH 34.8 H, MCHC 35.2, RDW 12.4, Plt Count 269, MPV 7.7, Neut % (Auto) 59.9, Lymph % (Auto) 21.1, [place] % (Auto) 6.0, Eos % (Auto) 12.6 H, Baso % (Auto) 0.4, Neut # (Auto) 5.6, Lymph # (Auto) 2.0, [place] # (Auto) 0.6, Eos # (Auto) 1.2 H, Baso # (Auto) 0.0, Sodium 136, Potassium 3.2 L, Chloride 102, Carbon Dioxide 32 H, Anion Gap 5.2, BUN 11 D, Creatinine 0.70, Estimated Creat Clear 67, Estimated GFR 111, Est GFR ( Amer) 135, Glucose 96, Calcium 7.8 L, Magnesium 1.8, Total Bilirubin 1.1, AST 27, ALT 15, Alkaline Phosphatase 52, Total Protein 5.9 L, Albumin 3.1 L, Globulin 2.8, Albumin/Globulin Ratio 1.1 I & O for Last 24 hours: Intake & Output 08/23/23 08/24/23 08/25/23 08/26/23 11:59 11:59 11:59 11:59 Intake Total 900 / 900 2386 / 2386 820 / 820 1240 / 1240 Output Total 1200 / 1200 1050 / 1050 1250 / 1250 700 / 700 Balance -300 / -300 1336 / 1336 -430 / -430 540 / 540 Weight 150 lb 15.914 oz 153 lb 4 oz 153 lb 153 lb Constitutional Constitutional: no acute distress *Routine Respiratory Exam Respiratory: Absent respiratory distress *Routine Cardiovascular Exam Cardiovascular: Absent tachycardia *Routine Abdominal Exam Abdominal: Present soft Comments: Some postoperative tenderness noted. Incision continues to heal without evidence of infection. Progress Note: A&P Assessment and plan (1) Complete obstruction of small intestine: Status: Acute Assessment and plan: Overall, doing well status post exploratory laparotomy with extensive lysis of adhesions (postoperative day 5). Remove one half of terri Continue to very slowly advance diet Likely discharge home soon with close outpatient follow-up Continue ambulation/physical therapy while admitted
[2023-08-26 06:56] LABS: Chloride 105 mmol/L (98-107); Potassium 3.5 mmoL/L (3.5-5.1); Sodium 136 mmol/L (136-145)
[2023-08-26 06:59] LABS: Alanine Aminotransferase 15 U/L (12-78); Albumin Level 2.9 g/dl (3.5-5.0); Albumin/Globulin Ratio 1.1 (1.1-1.8); Alkaline Phosphatase 52 U/L (38-126); Anion Gap 2.5 mEq/L (5-15); Aspartate Amino Transferase 27 U/L (17-59); Basophils % 0.4 % (0.1-2.0); Bilirubin,Total 0.6 mg/dl (0.2-1.3); Blood Urea Nitrogen 8 mg/dl (9-20); Carbon Dioxide 32 mmol/L (22.0-30.0); Creatinine Clearance Estimated 67 mL/min (50-200); Eosinophils # 1.3 K/mm3 (0.0-0.4); Eosinophils % 14.3 % (0.1-12.0); Estimated Glomerular Filt Rate 111 ml/min (>60); GFR (African American) 135 ML/MIN (>60); Globulin 2.6 g/dL (1.3-3.2); Hemoglobin 8.8 g/dL (14.1-18.0); Lymphocytes # 2.3 K/mm3 (0.7-4.5); Lymphocytes % 25.9 % (10-50); Mean Corpuscular HGB Conc 34.6 g/dL (31.8-35.4); Mean Corpuscular Hemoglobin 34.7 pg (27.0-31.2); Mean Corpuscular Volume 100.2 fl (80-94); Mean Platelet Volume 8.2 fl (7.4-10.4); Monocytes # 0.6 K/mm3 (0.1-1.0); Monocytes % 6.9 % (1.7-9.3); Neutrophils # 4.7 K/mm3 (1.8-7.8); Neutrophils % 52.4 % (37.0-80.0); Platelet Count 314 K/mm3 (142-424); Red Blood Count 2.53 M/mm3 (4.60-6.20); Red Cell Distribution Width 12.5 % (11.5-17.5); Total Protein,Serum 5.5 g/dl (6.3-8.2)
[2023-08-26 07:00] LABS: Calcium 7.7 mg/dl (8.4-10.2); Glucose 102 mg/dl (74-100)
[2023-08-26 07:10] LABS: Hematocrit 25.3 % (42.0-52.0)
[2023-08-26 07:48] VITALS: BP 173/75; PULSE 63; RESP 18; TEMP 36.9; O2SAT 98
--- NOTE | 2023-08-26 08:16 | EXP.ACUTE.PN ---
Subjective *Date: 08/26/23 *Time: 08:45 Interval history: Tolerating p.o. intake. Ambulating with assistance. No nausea or vomiting. Multiple loose bowel movements. Afebrile. On room air Medical Exam Vital signs and Labs for Last 24 Hours: Vital Signs Temp Pulse Resp BP Pulse Ox O2 Del Method 08/26/23 07:48 98.5 F 63 18 173/75 H 98 Room Air 08/26/23 06:19 Room Air 08/26/23 04:00 98.6 F 69 16 146/71 H 96 Room Air 08/26/23 03:00 Room Air 08/26/23 01:00 Room Air 08/26/23 00:00 98.6 F 71 16 142/72 H 96 Room Air 08/25/23 22:47 Room Air 08/25/23 21:00 Room Air 08/25/23 20:00 96 Room Air 08/25/23 20:00 98.9 F 67 16 146/73 H 97 Room Air 08/25/23 18:18 Room Air 08/25/23 17:00 Room Air 08/25/23 15:55 98.7 F 71 16 130/77 95 Room Air 08/25/23 15:00 Room Air 08/25/23 13:00 Room Air 08/25/23 11:00 Room Air 08/25/23 11:27 98.3 F 66 17 155/75 H 96 Room Air 08/25/23 09:00 Room Air Intake and Output 08/25/23 08/26/23 08/26/23 23:59 07:59 15:59 Intake Total 670 / 1480 370 / 370 Output Total 400 / 1200 550 / 550 Balance 270 / 280 -180 / -180 Intake: Intake, Oral Amount 470 / 1180 270 / 270 Intake, Total IV Amount 100 / 100 Pipercillin/Tazo 3.375 gm In 0. 100 / 100 9 % Sodium Chloride 50 ml @ 100 mls/hr IV Q6H [facility] Rx#:[id number] Infusion Intake 200 / 200 Pipercillin/Tazo 3.375 gm In 0. 200 / 200 9 % Sodium Chloride 50 ml @ 100 mls/hr IV Q6H [facility] Rx#:[id number] Output: Output, Urine Amount 400 / 1200 550 / 550 Other: Number of Unmeasured Voids 0 0 Number of Bowel Movements 1 Weight 69.4 kg Patient Weight 08/26/23 23:59 Weight 69.4 kg Laboratory Results - last 24 hr 08/26/23 06:16: WBC 9.0, RBC 2.53 L, Hgb 8.8 L, Hct 25.3 L, MCV 100.2 H, MCH 34.7 H, MCHC 34.6, RDW 12.5, Plt Count 314, MPV 8.2, Neut % (Auto) 52.4, Lymph % (Auto) 25.9, [place] % (Auto) 6.9, Eos % (Auto) 14.3 H, Baso % (Auto) 0.4, Neut # (Auto) 4.7, Lymph # (Auto) 2.3, [place] # (Auto) 0.6, Eos # (Auto) 1.3 H, Baso # (Auto) 0.0, Sodium 136, Potassium 3.5, Chloride 105, Carbon Dioxide 32 H, Anion Gap 2.5 L, BUN 8 L D, Creatinine 0.70, Estimated Creat Clear 67, Estimated GFR 111, Est GFR ( Amer) 135, Glucose 102 H, Calcium 7.7 L, Total Bilirubin 0.6, AST 27, ALT 15, Alkaline Phosphatase 52, Total Protein 5.5 L, Albumin 2.9 L, Globulin 2.6, Albumin/Globulin Ratio 1.1 I & O for Labs for Last 24 Hours: Intake & Output 08/23/23 08/24/23 08/25/23 08/26/23 23:59 23:59 23:59 23:59 Intake Total 1186 / 1186 1780 / 1880 1480 / 1480 370 / 370 Output Total 1150 / 1350 1450 / 1450 900 / 1200 550 / 550 Balance 36 / -164 330 / 430 580 / 280 -180 / -180 Weight 68.49 kg 69.513 kg 69.4 kg 69.4 kg Constitutional: Present no acute distress and average body habitus Head: Present atraumatic and normocephalic Respiratory: Present normal respiratory effort; Absent accessory muscle use, rhonchi, wheezes or crackles Cardiac: Present Reg Rate and Rhythm GI: Present soft, tenderness (Continue daily improvement, incision clean dry and intact.) and normal bowel sounds; Absent distention Extremities: Present normal inspection and full ROM Skin: Present intact; Absent erythema Neuro: Present Grossly Intact, alert, awake, oriented x 3 and moves all extremities Assessment and Plan *Assessment and plan (1) Complete obstruction of small intestine: Status: Acute Category: Medical Code(s): K56.601 - Complete intestinal obstruction, unspecified as to cause (2) Anxiety: Status: Chronic Category: Medical Code(s): F41.9 - Anxiety disorder, unspecified (3) HTN (hypertension): Status: Chronic Qualifiers: Hypertension type: essential hypertension Qualified Code(s): I10 - Essential (primary) hypertension Category: Medical Code(s): I10 - Essential (p
--- NOTE | 2023-08-26 10:55 | PC.NURSE ---
Every other staple removed from midline abdominal incision. Steri-strips placed between remaining terri. Pt. tolerated well. Incision CDI.
[2023-08-26 11:58] VITALS: BP 137/83; PULSE 77; RESP 19; TEMP 36.8; O2SAT 97
[2023-08-26 16:00] VITALS: BP 159/84; PULSE 69; RESP 19; TEMP 36.9
[2023-08-26 20:00] VITALS: BP 124/76; PULSE 75; RESP 18; TEMP 37.3; O2SAT 97
[2023-08-27] VITALS: BP 136/78; PULSE 67; RESP 18; TEMP 36.8; O2SAT 98
--- NOTE | 2023-08-27 03:30 | PC.NURSE ---
Patient able to ambulate repeatedly around room. Pain noted in neck and abdomen, prn medication given. Incision open to air, no signs of infection. VS stable and pt remained on room air
[2023-08-27 04:00] VITALS: BP 169/85; PULSE 74; RESP 18; TEMP 36.7; O2SAT 96; BMI 23.1
[2023-08-27 06:40] LABS: Basophils % 0.3 % (0.1-2.0); Eosinophils % 12.5 % (0.1-12.0); Hematocrit 27.7 % (42.0-52.0); Hemoglobin 9.4 g/dL (14.1-18.0); Lymphocytes % 25.4 % (10-50); Mean Corpuscular Volume 99.9 fl (80-94); Mean Platelet Volume 7.8 fl (7.4-10.4); Monocytes # 0.5 K/mm3 (0.1-1.0); Monocytes % 6.7 % (1.7-9.3); Neutrophils # 4.4 K/mm3 (1.8-7.8); Platelet Count 356 K/mm3 (142-424); Red Blood Count 2.77 M/mm3 (4.60-6.20); Red Cell Distribution Width 12.5 % (11.5-17.5)
--- NOTE | 2023-08-27 06:40 | P.PN_ITS ---
Subjective Patient reports: no new complaints, flatus and bowel movement Exam Data for Last 24 hours Vital signs and Labs for Last 24 Hours: Temp Pulse Resp BP Pulse Ox O2 Del Method O2 Flow Rate 98.1 F 74 18 169/85 H 96 Room Air 2 08/27/23 04:00 08/27/23 04:00 08/27/23 04:00 08/27/23 04:00 08/27/23 04:00 08/27/23 04:59 08/23/23 06:30 Laboratory Results - last 24 hr 08/26/23 06:16: WBC 9.0, RBC 2.53 L, Hgb 8.8 L, Hct 25.3 L, MCV 100.2 H, MCH 34.7 H, MCHC 34.6, RDW 12.5, Plt Count 314, MPV 8.2, Neut % (Auto) 52.4, Lymph % (Auto) 25.9, [place] % (Auto) 6.9, Eos % (Auto) 14.3 H, Baso % (Auto) 0.4, Neut # (Auto) 4.7, Lymph # (Auto) 2.3, [place] # (Auto) 0.6, Eos # (Auto) 1.3 H, Baso # (Auto) 0.0, Sodium 136, Potassium 3.5, Chloride 105, Carbon Dioxide 32 H, Anion Gap 2.5 L, BUN 8 L D, Creatinine 0.70, Estimated Creat Clear 67, Estimated GFR 111, Est GFR ( Amer) 135, Glucose 102 H, Calcium 7.7 L, Total Bilirubin 0.6, AST 27, ALT 15, Alkaline Phosphatase 52, Total Protein 5.5 L, Albumin 2.9 L , Globulin 2.6, Albumin/Globulin Ratio 1.1 I & O for Last 24 hours: Intake & Output 08/24/23 08/25/23 08/26/23 08/27/23 11:59 11:59 11:59 11:59 Intake Total 2386 / 2386 820 / 820 1510 / 1510 780 / 780 Output Total 1050 / 1050 1250 / 1250 1550 / 1550 0 / 0 Balance 1336 / 1336 -430 / -430 -40 / -40 780 / 780 Weight 153 lb 4 oz 153 lb 153 lb 152 lb 4 oz Constitutional Constitutional: no acute distress *Routine Respiratory Exam Respiratory: Absent respiratory distress *Routine Cardiovascular Exam Cardiovascular: Absent tachycardia *Routine Abdominal Exam Abdominal: Present soft Comments: Some postoperative tenderness noted. Incision continues to heal without evidence of infection. Progress Note: A&P Assessment and plan (1) Complete obstruction of small intestine: Status: Acute Assessment and plan: Overall, doing well status post exploratory laparotomy with extensive lysis of adhesions (postoperative day 5). Likely discharge home soon with close outpatient follow-up Continue to slowly advance diet as tolerated (2) Anxiety: Status: Chronic (3) HTN (hypertension): Status: Chronic (4) HLD (hyperlipidemia): Status: Chronic (5) GERD (gastroesophageal reflux disease): Status: Chronic
[2023-08-27 06:46] LABS: Chloride 105 mmol/L (98-107)
[2023-08-27 06:47] LABS: Potassium 3.9 mmoL/L (3.5-5.1); Sodium 139 mmol/L (136-145)
[2023-08-27 06:49] LABS: Alanine Aminotransferase 19 U/L (12-78); Aspartate Amino Transferase 27 U/L (17-59); Blood Urea Nitrogen 9 mg/dl (9-20); Creatinine Clearance Estimated 66 mL/min (50-200); Estimated Glomerular Filt Rate 133 ml/min (>60); GFR (African American) 161 ML/MIN (>60)
[2023-08-27 06:50] LABS: Albumin Level 3.3 g/dl (3.5-5.0); Albumin/Globulin Ratio 1.2 (1.1-1.8); Alkaline Phosphatase 48 U/L (38-126); Anion Gap 6.9 mEq/L (5-15); Bilirubin,Total 0.4 mg/dl (0.2-1.3); Calcium 8.3 mg/dl (8.4-10.2); Carbon Dioxide 31 mmol/L (22.0-30.0); Globulin 2.8 g/dL (1.3-3.2); Glucose 112 mg/dl (74-100); Total Protein,Serum 6.1 g/dl (6.3-8.2)
[2023-08-27 07:12] LABS: Magnesium 1.8 mg/dl (1.6-2.3)
[2023-08-27 08:00] VITALS: BP 143/78; PULSE 76; RESP 19; TEMP 36.9; O2SAT 97
--- NOTE | 2023-08-27 11:09 | HMH.PHAINT1 ---
Pharmacy Intervention Comments: DISCHARGE MEDICATION COUNSELING PROVIDED. DISCUSSED THAT THERE WERE NO MEDICATION CHANGES AND PATIENT VERBALIZED NO QUESTIONS AT THIS TIME.
--- NOTE | 2023-08-29 16:36 | CARE MANAGER ---
Called and spoke with patient regarding recent discharge. Patient states that he is doing well. He was not aware of f/u appts, so I gave him that information. No concerns voiced at time of call.
--- NOTE | 2023-09-15 19:23 | EXP.DC.SUM ---
General Admission date:: 08/21/23 Discharge date: 08/27/23 HPI HPI HPI: Mr. Jones is a 73-year-old male with history of multiple abdominal surgeries, GERD, diverticulosis, asthma, hypertension. Presented to the ER this morning with acute onset of severe abdominal pain that occurred last night. Accompanied by nausea and vomiting. Vomit was nonbloody and nonbilious. Some mild diarrhea recently. Denies any shortness of breath, chest pain, sick contacts. Eval in the ER with imaging concerning for small bowel obstruction. Surgery was consulted and patient taken urgently to the OR for further evaluation. Medicine consulted for admission. Reviewed chart, CT showed changes consistent with mid small bowel obstruction. After arrival to the floor, patient is stable on room air. Has an NG in his left nare. On [employer] pump. Hemodynamically stable. Unable to get further history aside from chart review given patient's sedation Hospital Course Hospital Course Hospital Course: Patient was seen and evaluated at the bedside on the day of discharge. Patient is stable for discharge. Patient wishes to be discharged. All patient questions were answered and patient was given time to ask questions. Patient was discharged in stable condition. 73-year-old male who presents with acute onset of nausea and vomiting abdominal pain. Found to have small bowel obstruction in the ER on imaging. Discussed case with ER physician and surgery, request admission for surgical intervention and exploratory laparotomy. Medicine agreed to admit to inpatient care postop for further management including IV antibiotics and pain control. Continues to require inpatient management. Continuing antibiotics and pain control. Passing gas, had bowel movements in the past 24 hours. Tolerating clear liquids. Will advance diet today. If continues to progress well, anticipate discharge in the next 24 to 48 hours pending placement versus improvement in mobility and ability to go home with help. Problems addressed as follows: Small bowel obstruction - resolved Anemia stable Potassium improving at 3.5, continue supplementation with 20 mEq twice daily p.o. Continue Zoloft 25 mg daily for anxiety Continue gabapentin 800 mg 4 times a day for neuropathy and chronic pain Patient cleared by GS for dsichargem f/u information given, patient agreed with DC plan Exam Data for Last 24 hours Vital signs and Labs for Last 24 Hours: Temp Pulse Resp BP Pulse Ox O2 Del Method O2 Flow Rate 98.5 F 76 19 143/78 H 97 Room Air 2 08/27/23 08:00 08/27/23 08:00 08/27/23 08:00 08/27/23 08:00 08/27/23 08:00 08/27/23 09:00 08/23/23 06:30 Narrative: Constitutional: Present no acute distress and average body habitus Head: Present atraumatic and normocephalic Respiratory: Present normal respiratory effort; Absent accessory muscle use, rhonchi, wheezes or crackles Cardiac: Present Reg Rate and Rhythm GI: Present soft, tenderness (Continue daily improvement, incision clean dry and intact.) and normal bowel sounds; Absent distention Extremities: Present normal inspection and full ROM Skin: Present intact; Absent erythema Neuro: Present Grossly Intact, alert, awake, oriented x 3 and moves all extremities DS: Diagnosis Discharge Diagnosis (1) Complete obstruction of small intestine: Status: Resolved Code(s): K56.601 - Complete intestinal obstruction, unspecified as to cause (2) Anxiety: Status: Chronic Code(s): F41.9 - Anxiety disorder, unspecified (3) HTN (hypertension): Status: Chronic Code(s): I10 - Essential (primary) hypertension Qualifiers: Hypertension type: essential hypertension Qualified Code(s): I10 - Essential (primary) hypertension (4) HLD (hyperlipidemia): Status: Chronic Code(s): E78.5 - Hyperlipidemia, unspecified Qualifiers: Hyperlipidemia type: other hyperlipidemia Quali
== END 2023-08-27 11:25 | disposition home or self-care (01) | DRG 335 ==
LOC: ER 11:40 → 2ND 11:42
PROVIDERS: Surgery; Admitting Provider Internal Medicine Adolescent Medicine; Emergency Provider Emergency Medicine; PCP Nurse Practitioner Family; Visit Provider Internal Medicine Adolescent Medicine
PROC: 0DNE0ZZ Release Large Intestine, Open Approach (ICD-10-PCS; CPT 49000; principal; 2023-08-21 12:00)
DX: K56.52 Intestinal adhesions [bands] with complete obstruction (principal); K65.9 Peritonitis, unspecified; F41.9 Anxiety disorder, unspecified; I10 Essential (primary) hypertension; E78.49 Other hyperlipidemia; K21.9 Gastro-esophageal reflux disease without esophagitis; I65.29 Occlusion and stenosis of unspecified carotid artery; F17.200 Nicotine dependence, unspecified, uncomplicated; D64.9 Anemia, unspecified; G62.9 Polyneuropathy, unspecified; G89.29 Other chronic pain; N40.0 Benign prostatic hyperplasia without lower urinary tract symptoms; E78.5 Hyperlipidemia, unspecified
CPT/HCPCS: 44005 ×2; 36415; 71045; 71275; 74174; 80053; 81001; 83605; 83690; 83735; 84100; 84484; 85025; 85610; 93005; 96374; 97110; 97116; 97163; 97166; 97530; 99291; J0330; J0690; J2405; J2543; Q9967

== ENCOUNTER → 2023-08-29 14:24 | Outpatient (POV) | payer MEDICARE, SELFPAY ==
--- NOTE | 2023-08-29 14:28 | EXP.PAIN.SOA ---
[facility] Pain Management SOAP Note Subjective:: Patient is a pleasant 73-year-old male who presents today for medication refill and follow-up of pain pump trial. We are currently treating the patient for degenerative disc disease of lumbar spine with lumbar radiculopathy symptoms, osteoarthritis left shoulder and left knee pain. Today he rates his pain a 4 out of 10. He does state since our last appointment he was recently in the hospital for a bowel obstruction and did have to undergo surgery by Dr. Burris. He does state that he had just gotten out yesterday and is feeling better. Patient states that he had significant improvement following the intrathecal pain pump trial with approximately 90 to 100% relief lasting 6 hours or more. He states during that time he was able to increase his activity with decreased pain symptoms. He has chronic pain throughout his back and describes it as a aching, throbbing sensation that is constant. The pain affects his ability perform activities of daily living such as cooking and cleaning. Patient has tried and failed oral medications, heat and ice, topicals, physical therapy, at home exercise and stretching for longer than 12 weeks. Patient is currently managed with gabapentin 800 mg 4 times a day, methocarbamol 500 mg at bedtime and [place] 10 mg 4 times a day. Patient denies any side effects from this medication. He does state that he does not need any refills at this time. His Siva has been reviewed and is appropriate. Review of Systems: General: No recent weight changes, no fever, no sleep disturbances Respiratory: No cough, no shortness of air, no recurring pulmonary infections Cardiovascular/peripheral vascular: No chest pain, no palpitations, no edema, no shortness of breath Gastrointestinal: No new onset incontinence, normal bowel movements reported Genitourinary: No new onset incontinence Musculoskeletal: Low back pain, abdominal pain Psychiatric: [Normal mood/affect] Neurological: [Denies weakness in extremities], [denies balance issues] Objective:: Physical Exam: General: Alert and oriented x3, no acute distress, pleasant and cooperative Lungs: Respirations even and unlabored, symmetrical chest expansion Eyes: PERRL Musculoskeletal: Flexion and extension of lumbar [spine] somewhat guarded secondary to pain, [antalgic gait noted] Neurological: Speech clear, no gross sensory deficit Assessment:: Degenerative disc disease of lumbar spine with lumbar radiculopathy symptoms, osteoarthritis left shoulder, left knee pain Plan:: Patient had a successful pain pump trial with 90 to 100% improvement. I have reviewed over the risk and benefits of this procedure with the intrathecal implant and he would still like to proceed forward with this plan of care. I have counseled the patient due to his recent hospitalization and surgery of a bowel resection we will wait until he is fully healed from his current surgery before proceeding forward with the implant. Patient has already been submitted to insurance for the intrathecal pain pump placement however we are still under pending status. Patient will return to clinic in 1 month for reevaluation of symptoms and plan of care. Patient has been advised of risks of oversedation with the prescribed medication. Narcan has been offered to the patient in the event of oversedation. Patient has been advised that a family member should also be educated regarding administration of Narcan. Patient has been instructed to contact the clinic with any concerns before the next appointment. Dr. Gongora has reviewed this note and agrees with this plan of care. This note was dictated using voice recognition software and make contain errors or omissions. [facility] Disclaimer: The information contained in this section may have been updated after the patient was seen, as this information can be updated by other users. Medical History Asthma
[2023-08-29 14:35] VITALS: BP 146/86; PULSE 101; RESP 18; O2SAT 95; BMI 21.9
== END ==
PROVIDERS: PCP Nurse Practitioner Family; Visit Provider Nurse Practitioner Family
DX: M51.16 Intervertebral disc disorders with radiculopathy, lumbar region (principal); M19.012 Primary osteoarthritis, left shoulder; M25.562 Pain in left knee
CPT/HCPCS: 99212; G0463

== ENCOUNTER → 2023-09-25 15:48 | Outpatient (CLI) | payer MEDICARE, SELFPAY ==
[2023-09-25 15:42] LABS: Basophils % 0.3 % (0.1-2.0); Eosinophils # 0.4 K/mm3 (0.0-0.4); Eosinophils % 4.5 % (0.1-12.0); Hematocrit 39.4 % (42.0-52.0); Hemoglobin 12.7 g/dL (14.1-18.0); Lymphocytes # 2.5 K/mm3 (0.7-4.5); Lymphocytes % 29.3 % (10-50); Mean Corpuscular HGB Conc 32.1 g/dL (31.8-35.4); Mean Corpuscular Hemoglobin 32.9 pg (27.0-31.2); Mean Corpuscular Volume 102.4 fl (80-94); Mean Platelet Volume 8.9 fl (7.4-10.4); Monocytes # 0.5 K/mm3 (0.1-1.0); Monocytes % 5.8 % (1.7-9.3); Neutrophils # 5.2 K/mm3 (1.8-7.8); Neutrophils % 60.1 % (37.0-80.0); Platelet Count 440 K/mm3 (142-424); Red Blood Count 3.85 M/mm3 (4.60-6.20); White Blood Count 8.6 K/mm3 (4.8-10.8)
[2023-09-25 16:35] LABS: Vitamin B12 680 pg/mL (239-931)
== END ==
PROVIDERS: PCP Nurse Practitioner Family; Visit Provider Nurse Practitioner Family
DX: E53.8 Deficiency of other specified B group vitamins (principal)
CPT/HCPCS: 82607; 85025

== ENCOUNTER → 2023-09-26 14:52 | Outpatient (POV) | payer MEDICARE, SELFPAY ==
--- NOTE | 2023-09-26 15:29 | EXP.PAIN.SOA ---
[facility] Pain Management SOAP Note Subjective:: Patient is a pleasant 73-year-old male who presents today for medication refill and follow-up. We are currently treating the patient for degenerative disc disease of lumbar spine with lumbar radiculopathy symptoms, osteoarthritis left shoulder, left knee pain, chronic pain syndrome. Today he rates his pain a 4 out of 10. Patient denies any new trauma or injury. Patient states he has done well following his recovery of his bowel obstruction. He states he is fully healed and has been lifted off of postop restrictions. Patient had previously had a intrathecal pain pump trial with approximately 90 to 100% relief and was going to be scheduled for the implant however had to be emergency surgery. Patient would like to proceed forward with this option. He states he does actually have a surgical implant date of October 04. Patient is currently managed with gabapentin 800 mg 4 times a day, methocarbamol 500 mg at bedtime and [place] 10 mg 4 times a day. Patient states he has been decreasing he has pain medication in anticipation for his intrathecal pump placement. Patient denies any side effects from these medications. His Siva has been reviewed and is appropriate. Review of Systems: General: No recent weight changes, no fever, no sleep disturbances Respiratory: No cough, no shortness of air, no recurring pulmonary infections Cardiovascular/peripheral vascular: No chest pain, no palpitations, no edema, no shortness of breath Gastrointestinal: No new onset incontinence, normal bowel movements reported Genitourinary: No new onset incontinence Musculoskeletal: Low back pain, abdominal pain Psychiatric: [Normal mood/affect] Neurological: [Denies weakness in extremities], [denies balance issues] Objective:: Physical Exam: General: Alert and oriented x3, no acute distress, pleasant and cooperative Lungs: Respirations even and unlabored, symmetrical chest expansion Eyes: PERRL Musculoskeletal: Flexion and extension of lumbar [spine] somewhat guarded secondary to pain, [antalgic gait noted] Neurological: Speech clear, no gross sensory deficit Assessment:: Degenerative disc disease of lumbar spine with lumbar radiculopathy symptoms, osteoarthritis left shoulder, left knee pain, chronic pain syndrome Plan:: I will refill the patient's gabapentin 800 mg 4 times a day and methocarbamol 500 mg at bedtime and provide a 1 month supply of this medication. I have counseled the patient that I will send in a prescription of the [place] 10 mg 3 times a day and only provide a 2-week supply of this medication due to his upcoming surgery. Patient will return to clinic for his 1 week postop intrathecal implant in approximately 2 weeks. Patient has been advised of risks of oversedation with the prescribed medication. Narcan has been offered to the patient in the event of oversedation. Patient has been advised that a family member should also be educated regarding administration of Narcan. Patient has been instructed to contact the clinic with any concerns before the next appointment. Dr. Gongora has reviewed this note and agrees with this plan of care. This note was dictated using voice recognition software and make contain errors or omissions. [facility] Disclaimer: The information contained in this section may have been updated after the patient was seen, as this information can be updated by other users. Medical History Asthma BPH (benign prostatic hyperplasia) Hypertension Surgical History History of back surgery History of colectomy for diveticulitis History of elbow surgery History of splenectomy History of surgery on lower extremity Hx of colonoscopy S/P exploratory laparotomy Family History Other No significant family history Social H
[2023-09-26 15:44] VITALS: BP 142/77; PULSE 83; RESP 18; O2SAT 97; BMI 21.9
== END | disposition home or self-care (01) ==
PROVIDERS: PCP Nurse Practitioner Family; Visit Provider Nurse Practitioner Family
DX: M51.16 Intervertebral disc disorders with radiculopathy, lumbar region (principal); M19.012 Primary osteoarthritis, left shoulder; M25.562 Pain in left knee; G89.4 Chronic pain syndrome
CPT/HCPCS: 99212; G0463

== ENCOUNTER → 2023-10-03 13:27 | Outpatient (CLI) | payer MEDICARE, SELFPAY ==
[2023-10-03 14:20] LABS: Basophils % 0.5 % (0.1-2.0); Eosinophils # 0.5 K/mm3 (0.0-0.4); Eosinophils % 7.1 % (0.1-12.0); Hematocrit 38.1 % (42.0-52.0); Hemoglobin 12.4 g/dL (14.1-18.0); Lymphocytes # 2.7 K/mm3 (0.7-4.5); Lymphocytes % 36.6 % (10-50); Mean Corpuscular HGB Conc 32.5 g/dL (31.8-35.4); Mean Corpuscular Volume 101.8 fl (80-94); Mean Platelet Volume 8.3 fl (7.4-10.4); Monocytes # 0.5 K/mm3 (0.1-1.0); Monocytes % 6.8 % (1.7-9.3); Neutrophils # 3.6 K/mm3 (1.8-7.8); Platelet Count 397 K/mm3 (142-424); Red Blood Count 3.74 M/mm3 (4.60-6.20); Red Cell Distribution Width 13.2 % (11.5-17.5); White Blood Count 7.4 K/mm3 (4.8-10.8)
[2023-10-03 15:41] LABS: Anion Gap 9.1 mEq/L (5-15); Blood Urea Nitrogen 13 mg/dl (9-20); Calcium 8.7 mg/dl (8.4-10.2); Carbon Dioxide 30 mmol/L (22.0-30.0); Chloride 105 mmol/L (98-107); Estimated Glomerular Filt Rate 111 ml/min (>60); GFR (African American) 135 ML/MIN (>60); Glucose 93 mg/dl (74-100); Potassium 4.1 mmoL/L (3.5-5.1); Sodium 140 mmol/L (136-145)
== END ==
PROVIDERS: PCP Nurse Practitioner Family; Visit Provider Anesthesiology
DX: M51.36 Other intervertebral disc degeneration, lumbar region (principal); Z01.818 Encounter for other preprocedural examination
CPT/HCPCS: 36415; 80048; 85025

== ENCOUNTER 2023-10-04 07:59 | Day surgery (SDC) | payer MEDICARE, SELFPAY ==
[2023-10-02 11:24] VITALS: BMI 22.0
[2023-10-04 08:31] VITALS: BP 185/83; PULSE 66; RESP 18; TEMP 36.6; O2SAT 98
[2023-10-04 09:18] LABS: Opiate Screen,Urine Positive ng/ml (<300); Phencyclidine Screen,Urine Negative ng/ml (<25)
[2023-10-04 09:20] LABS: Amphetamine/Metha Screen,Urine Negative ng/ml (<1000); Barbiturates Screen,Urine Negative ng/ml (<200)
[2023-10-04 09:21] LABS: Benzodiazepines Screen,Urine Negative ng/ml (<200)
[2023-10-04 09:24] LABS: Cannabinoid Screen,Urine Negative ng/ml (<50); Cocaine Screen,Urine Negative ng/ml (<300)
[2023-10-04 09:25] LABS: Methadone Screen,Urine Negative ng/ml (<300)
--- NOTE | 2023-10-04 10:53 | P.PNANES_ITS ---
[facility] Disclaimer: The information contained in this section may have been updated after the patient was seen, as this information can be updated by other users. Medical History Abdominal pain Acute bronchitis Acute exacerbation of chronic low back pain Acute exacerbation of chronic obstructive pulmonary disease Acute sinusitis Adjustment disorder Anxiety Asthma Asthma Bee sting reaction BPH (benign prostatic hyperplasia) Bronchitis Carotid artery stenosis Diarrhea Exposure to COVID-19 virus Finger laceration GERD (gastroesophageal reflux disease) History of DVT (deep vein thrombosis) HLD (hyperlipidemia) HTN (hypertension) Hypertension Low vitamin B12 level Lumbar degenerative disc disease Lumbar radiculopathy Neck pain Otitis media Peritonitis Pneumonia Posture abnormality Radiculopathy Rib injury Sinusitis Urinary incontinence Surgical History History of back surgery History of colectomy History of elbow surgery History of splenectomy History of surgery on lower extremity Hx of colonoscopy S/P exploratory laparotomy Family History Other No significant family history Social History Smoking Status: Former smoker second hand exposure: No alcohol intake: never substance use type: denies use current occupational status: retired Travel in the last 8 weeks: None housing: house caffeine: Yes [facility] Anesthesia Checklist Patient Identification Patient Identification: Arm Band and Verbal (Name & ) Structural Data Admitted From: Home Planned Operative Procedure/s: Pain pump placement Consent for Planned Operative Procedure(s) Verified: Yes Verified Documents: Surgical Consent and History and Physical NPO Status Verified Time NPO: 21:00 Chart Verification Results Verified: CBC, BMP, ECG and Chest Xray Additional verifications Patient : No Anesthesia Reactions: No Hx Blood Transfusions: No Blood Transfusion Reaction: No Cardiovascular Assessment Heart Sounds: S1 & S2 Pulse Rhythm: Irregular Peripheral Edema: No Airway Assessment Mallampati Score:: Class II C-Spine Mobility Assessed: Yes (FROM) TMJ Mobility Assessed: Yes Dentition: Edentulous Neurological Assessment Level of Consciousness: Awake, Alert, Appropriate and Follows Commands Hx Seizures: No Numbness or tingling in extremities: Yes (RASHI LE) Anesthesia Plan Anesthesia Risk discussed: Yes Anesthesia Plan: Verified ASA Class: III Anesthesia Type: MAC
[2023-10-04 12:00] VITALS: BP 116/69; PULSE 49; RESP 17; TEMP 36.4; O2SAT 96
--- NOTE | 2023-10-04 12:04 | EXP.ANES.I ---
[facility] Anesthesia Record Part I Anesthesia Record I Intake, IV Amount: 800 Hydration: Adequate Estimated blood loss (mL): 10 Urine output (mL): 0 Blood Products used (#): none Blood Pressure: 116/69 SaO2: 95 Pulse Rate: 51 Airway Patency: Patent Respiratory Rate: 16 Temperature: 97.6 F Patient is:: Awake, Drowsy and Stable Stable to PACU at:: 12:05
[2023-10-04 12:05] VITALS: BP 116/69; PULSE 51; RESP 16; TEMP 36.4; O2SAT 95
[2023-10-04 12:10] VITALS: BP 117/62; PULSE 48; RESP 16; O2SAT 94
[2023-10-04 12:20] VITALS: BP 134/82; PULSE 55; RESP 17; O2SAT 96
[2023-10-04 12:30] VITALS: BP 155/89; PULSE 58; RESP 16; O2SAT 99
--- NOTE | 2023-10-04 12:30 | SUR.PHASEII ---
multiple attempts to get ahold of patients family, and contacts on chart. neither answered and both are now going straight to voicemail. staff members went to parking lot to see if patient vehicle described by him was there and it was not. properties supervisor called for next steps.
--- NOTE | 2023-10-04 13:12 | SUR.PHASEII ---
Pt's transportation returned to postop bedside. D/C instructions given to Pt and family. Lunch tray brought to pt in postop. Determined pt to eat lunch prior to discharge. Upon returning to pt's room after checking in another patient noticed pt's transportation not present. When asked pt states that they had an argument over her leaving with his truck and that she left. Recieved call from pt's daughter stating that she left on foot, she was not going to take pt home and that she was attempting to find alternate transportation. Her phone number was obtained and requested that she arrange transportation MCKINLEYJose Pink notified.
--- NOTE | 2023-10-04 13:19 | P.OP_ITS ---
Date of procedure: 10/04/23 Pre-op Diagnosis:: Degenerative disc disease of lumbar spine with lumbar radiculopathy symptoms and postlaminectomy syndrome lumbar spine Post-op Diagnosis:: Same Procedure performed:: Permanent placement intrathecal pain pump with tunneled intrathecal catheter and pain pump generator placement Surgeon:: Alejandro Gongora MD TOE LINING CLOSER:: Other Anesthesia: MAC Estimated blood loss (mL): 5 Clinical Note:: This patient is a pleasant 73-year-old white male who we are treating for postlaminectomy syndrome lumbar spine with lumbar radiculopathy symptoms. He has failed all previous conservative treatments including injections, oral medications, physical therapy and is not a surgical candidate. He has had previous surgery with what seems to be an interspinous process spacer at L4-L5. He continues to have increasing low back pain with lumbar radicular symptoms. He has had a successful psychological evaluation and a successful intrathecal pump trial. He was previously on hydrocodone. He is weaned off of his hydrocodone. He presents for permanent placement of his intrathecal pain pump today. Operative findings:: None Operative note:: Informed consent was obtained risk and benefits of the procedure were explained to the patient. Patient was taken the operating room placed prone on the procedure table. He was prepped and draped in sterile fashion. C-arm fluoroscopy was used to view the right flank. Correction between the 12th rib and iliac crest we anesthetized the skin and subcutaneous tissues and made an incision dissected down to grade the pump pocket. The skin and subcutaneous tissues adjacent to the L3-L4 interspace were Using lidocaine. I made an incision and dissected down to the lumbar paraspinous fascia. A 17-gauge spinal needle was inserted and advanced into the L3-L4 interspace until clear CSF was obtained. After this intrathecal catheter was inserted and advanced very easily to the T8 vertebral body. Catheter was found to be in good position it was midline and posterior. The stylette of the catheter and the needle withdrawn. The catheter was secured to the fascia with anchor device and 2-0 Prolene. I prepared the pump with 20 mL of intrathecal morphine 1 mg/mL. I tunneled the catheter to the generator pocket and attached catheter to the pump. We were able to freely withdraw clear CSF through the kemi eport. Both incisions were irrigated with antibiotic solution. The pump was placed in the pocket with an antibiotic pouch. Both incisions were then closed with 2-0 Vicryl followed by 4-0 nylon and subcutaneous terri. Patient tolerated the procedure well with no complications. Pump was interrogated and started at 100 mcg/day of intrathecal morphine. Patient was discharged home neurologic intact with good relief of pain symptoms. Plan and disposition: Follow-up with this patient in 1 week for wound check and reprogramming. Will follow-up in 2 weeks for suture removal. If he has any pr oblems or questions he is to call us back in the pain clinic. Condition: stable Disposition: PACU Complications:: None
--- NOTE | 2023-10-04 13:50 | SUR.PHASEII ---
Cr Oneil with patient experience talked to patient daughter who stated she is ok with taking patient home and patient as well agreed. pt wheelchaired to truck without issue.
== END 2023-10-04 13:45 | disposition home or self-care (01) ==
PROVIDERS: PCP Nurse Practitioner Family; Visit Provider Anesthesiology
PROC: (CPT 62350; principal; 2023-10-04 09:30)
DX: M51.16 Intervertebral disc disorders with radiculopathy, lumbar region (principal); M96.1 Postlaminectomy syndrome, not elsewhere classified
CPT/HCPCS: 62350; 62362; 80305; 96374; C1755; C1772

== ENCOUNTER → 2023-10-10 09:53 | Outpatient (POV) | payer MEDICARE, SELFPAY ==
--- NOTE | 2023-10-10 10:17 | EXP.PAIN.SOA ---
[facility] Pain Management SOAP Note Subjective:: Patient is a pleasant 73-year-old male who presents today for 1 week postop follow-up of intrathecal pain pump implant on 10/04/2023. We are currently treating the patient for degenerative disc disease of lumbar spine with lumbar radiculopathy symptoms, osteoarthritis left shoulder, left knee pain, chronic pain syndrome. Today he rates his pain a 4 out of 10. Patient denies any issues following his surgery procedure. He states he is doing well and feels like the pump medication is working in improving his pain. Patient is currently managed with intrathecal morphine 1 mg/mL with a daily dose of 0.0999 mg/day. He denies any side effects from this medication. Patient is also managed with gabapentin 800 mg 4 times a day and methocarbamol 500 mg at bedtime. At our last visit he did get a month supply of these medications and does not need any refills at this time. His Siva has been reviewed and is appropriate. Review of Systems: General: No recent weight changes, no fever, no sleep disturbances Respiratory: No cough, no shortness of air, no recurring pulmonary infections Cardiovascular/peripheral vascular: No chest pain, no palpitations, no edema, no shortness of breath Gastrointestinal: No new onset incontinence, normal bowel movements reported Genitourinary: No new onset incontinence Musculoskeletal: Low back pain Psychiatric: [Normal mood/affect] Neurological: [Denies weakness in extremities], [denies balance issues] Objective:: Physical Exam: General: Alert and oriented x3, no acute distress, pleasant and cooperative Lungs: Respirations even and unlabored, symmetrical chest expansion Eyes: PERRL Musculoskeletal: Flexion and extension of lumbar [spine] somewhat guarded secondary to pain, [antalgic gait noted] Neurological: Speech clear, no gross sensory deficit Skin: Incision sites clean, dry, well-approximated, moderate edema noted at the right lateral incision, sutures intact Assessment:: Degenerative disc disease of lumbar spine with lumbar radiculopathy symptoms, osteoarthritis left shoulder, left knee pain, chronic pain syndrome Plan:: Patient is doing well following his intrathecal pain pump implant with no complications. I have counseled the patient to continue his postop restrictions with minimal bending, twisting or lifting, no submerging in water until his incisions are fully healed and to continue to use his abdominal binder to prevent seroma formation. Patient's incision did have some erythema noted to the right lateral incision so we did cleanse the wound and apply Steri-Strips and a dressing to add additional protection. Patient will return to clinic in 2 weeks for suture removal and reevaluation of symptoms and plan of care. Patient has been instructed to contact the clinic with any concerns before the next appointment. Dr. Gongora has reviewed this note and agrees with this plan of care. This note was dictated using voice recognition software and make contain errors or omissions. -- It Is medically necessary for this patient to continue to have their intrathecal pump refilled at regular intervals. This patient had an intrathecal pain pump implanted after meeting criteria of chronic intractable pain for greater than 3 months and failing conservative treatments. Patient has committed and been compliant to the treatment plan and all planned follow up care. Since implantation of the intrathecal pain pump, the patient has had decreased pain and been more functional. Oral medications have been reduced including intake of oral opioids. Patient continues to do well with intrathecal therapy with decrease in pain symptoms and increase in functional status. Stopping intrathecal medications can lead to life threatening withdrawal, seizures, cardiac arrest, severe pain, and possible . Pumps that are not refilled at regular intervals can be damages and cause and need for replacement. We continually titrate dose
[2023-10-10 10:49] VITALS: BP 127/82; PULSE 58; RESP 18; O2SAT 96; BMI 22.0
== END ==
PROVIDERS: PCP Nurse Practitioner Family; Visit Provider Nurse Practitioner Family
DX: M51.16 Intervertebral disc disorders with radiculopathy, lumbar region (principal); M19.012 Primary osteoarthritis, left shoulder; M25.562 Pain in left knee; G89.4 Chronic pain syndrome; Z97.8 Presence of other specified devices
CPT/HCPCS: 99212; G0463

== ENCOUNTER 2023-10-29 06:52 | Outpatient (CLI) | payer MEDICARE, SELFPAY ==
[2023-10-29 17:44] LABS: Basophils # 0.1 K/mm3 (0-0.2); Basophils % 0.7 % (0.1-2.0); Eosinophils # 0.2 K/mm3 (0.0-0.4); Eosinophils % 1.9 % (0.1-12.0); Hematocrit 38.4 % (42.0-52.0); Hemoglobin 12.5 g/dL (14.1-18.0); Lymphocytes # 3.5 K/mm3 (0.7-4.5); Lymphocytes % 39.6 % (10-50); Mean Corpuscular HGB Conc 32.4 g/dL (31.8-35.4); Mean Corpuscular Hemoglobin 32.3 pg (27.0-31.2); Mean Corpuscular Volume 99.5 fl (80-94); Mean Platelet Volume 10.5 fl (7.4-10.4); Monocytes # 0.6 K/mm3 (0.1-1.0); Neutrophils # 4.4 K/mm3 (1.8-7.8); Neutrophils % 50.7 % (37.0-80.0); Platelet Count 350 K/mm3 (142-424); Red Blood Count 3.86 M/mm3 (4.60-6.20); Red Cell Distribution Width 13.4 % (11.5-17.5); White Blood Count 8.7 K/mm3 (4.8-10.8)
[2023-10-29 19:07] LABS: Ferritin 36.2 ng/ml (17.9-464)
[2023-10-29 19:17] LABS: Vitamin B12 266 pg/mL (239-931)
== END 2023-10-29 23:59 ==
LOC: LAB.DROPOF 10-30 06:53
PROVIDERS: PCP Nurse Practitioner Family; Visit Provider Nurse Practitioner Family
DX: D50.9 Iron deficiency anemia, unspecified (principal); E53.8 Deficiency of other specified B group vitamins
CPT/HCPCS: 82607; 82728; 85025

== ENCOUNTER → 2023-10-29 09:18 | Outpatient (POV) | payer MEDICARE, SELFPAY ==
[2023-10-29 09:37] VITALS: BP 148/84; PULSE 58; RESP 20; O2SAT 99; BMI 22.0
--- NOTE | 2023-10-29 09:59 | A.OFFVIS_ITS ---
[facility] Pain Management SOAP Note Subjective:: This patient is a very pleasant 73-year-old male who comes our clinic today for follow-up visit regarding intrathecal pain pump implantation 1 month ago. He is doing very well with his current settings. He is currently being managed with intrathecal morphine 1 mg/mL daily dose of 0.099 mg/day. Patient continues taking 800 mg gabapentin 4 times daily and methocarbamol 500 mg 1 p.o. nightly. Patient's Siva #[id number] has been reviewed and appropriate. Patient's incisions look clean and dry. The remaining sutures were removed. Steri-Strips applied. Patient rates his pain 2/10. Objective:: Patient is awake alert [place] x 3. No acute distress. Flexion-extension cervical lumbar spine somewhat guarded secondary to pain. Deep tendon reflexes upper lower extremities normal. Motor strength upper and lower extremities normal. There is no gross sensory deficit. Gait is normal. Assessment:: Degenerative disc lumbar spine multilevels. Lumbar radiculopathy. Lumbar postlaminectomy syndrome. Plan:: Patient doing very well with his current settings. He is not requesting any changes in his current intrathecal pain pump management. He does not report any side effects or complications. He is very happy with his overall result with intrathecal pain pump management. Return to see us in 1 month. [facility] Disclaimer: The information contained in this section may have been updated after the patient was seen, as this information can be updated by other users. Medical History Abdominal pain Acute bronchitis Acute exacerbation of chronic low back pain Acute exacerbation of chronic obstructive pulmonary disease Acute sinusitis Adjustment disorder Anxiety Asthma Asthma Bee sting reaction BPH (benign prostatic hyperplasia) Bronchitis Carotid artery stenosis Diarrhea Exposure to COVID-19 virus Finger laceration GERD (gastroesophageal reflux disease) History of DVT (deep vein thrombosis) HLD (hyperlipidemia) HTN (hypertension) Hypertension Low vitamin B12 level Lumbar degenerative disc disease Lumbar radiculopathy Neck pain Otitis media Peritonitis Pneumonia Posture abnormality Radiculopathy Rib injury Sinusitis Urinary incontinence Surgical History History of back surgery History of colectomy History of elbow surgery History of splenectomy History of surgery on lower extremity Hx of colonoscopy S/P exploratory laparotomy Family History Other No significant family history Social History Smoking Status: Former smoker second hand exposure: No alcohol intake: never substance use type: denies use current occupational status: other Travel in the last 8 weeks: None housing: house caffeine: Yes
== END ==
LOC: SC.PAIN 09:20
PROVIDERS: PCP Nurse Practitioner Family; Visit Provider Nurse Anesthetist, Certified Registered
DX: M51.16 Intervertebral disc disorders with radiculopathy, lumbar region (principal); M96.1 Postlaminectomy syndrome, not elsewhere classified; Z97.8 Presence of other specified devices
CPT/HCPCS: 82607; 82728; 85025; 99212; 99213; G0463

== ENCOUNTER 2023-11-05 19:12 | Emergency (ER) | payer MEDICARE, SELFPAY ==
[2023-11-05 19:38] VITALS: BP 196/87; PULSE 66; O2SAT 99
[2023-11-05 19:44] VITALS: BP 196/87; PULSE 73; RESP 18; TEMP 36.8; O2SAT 97; BMI 22.5
[2023-11-05 20:01] VITALS: BP 206/93; PULSE 63; O2SAT 98
--- NOTE | 2023-11-05 20:16 | HMH.EDGENADL ---
Discharge Plan Disposition Patient Disposition: Home, Self-Care Prescriptions Prescriptions: No Action Zyrtec 10 mg capsule 10 mg PO DAILY PRN (Reason: allergy symptoms) 30 Days Qty: 30 5RF sertraline 25 mg tablet 25 mg PO DAILY 30 Days Qty: 30 2RF cephalexin 500 mg capsule 500 mg PO BID 10 Days Qty: 20 0RF Pro Fe 180 mg iron capsule 180 mg PO BID 30 Days Qty: 60 2RF gabapentin [Neurontin] 800 mg tablet 800 mg PO QID Qty: 120 0RF methocarbamol 500 mg tablet 500 mg PO HS Qty: 30 0RF Referrals Follow up/Referrals: Alejandro Gongora MD [Staff Physician] - See instructions Senia Espinoza APRN [Primary Care Provider] - See instructions Activity Restrictions/Add. Instructions Additional Instructions/Restrictions: Please follow-up with Dr. Gongora at his next available appointment Clinical Impressions Clinical Impression: Chronic pain Discharge ED Provider: Kenia Jones General Adult HPI General Chief complaint: PAIN Stated complaint: pain oump 09/04 pain at the site and RT hip Time Seen by Provider: 11/05/23 20:07 Mode of Arrival: Wheelchair Limitations: No Limitations Description of Symptoms (Recalled from ER Triage Doc. by RN): Pt to ED via wheelchair with c/o right hip pain around pain pump site. pain pump placed Sep 04 here at [facility] by Dr Gongora. Pt states the pain started at 6pm tonight, pain does not radiate. Denies urinary sx, recent falls, or injury. Site looks well healed History of Present Illness HPI narrative: Patient is a 73-year-old with chronic back pain has had surgery in the past also had a recent pain pump that was placed in August by Dr. Gongora. States he is intermittently had some pain locally surrounding the pain pump itself. No injuries no lower extremity weakness no midline pain no saddle anesthesia or urinary or bowel incontinence no paralysis. Related Data Previous Rx's Medication Instructions Recorded cetirizine 10 mg capsule (Zyrtec) 10 mg PO DAILY PRN allergy 07/17/23 symptoms 30 days #30 caps sertraline 25 mg tablet 25 mg PO DAILY 30 days #30 tabs 07/17/23 gabapentin 800 mg tablet 800 mg PO QID #120 tabs 09/26/23 (Neurontin) methocarbamol 500 mg tablet 500 mg PO HS #30 tabs 09/26/23 cephalexin 500 mg capsule 500 mg PO BID 10 days #20 caps 10/29/23 polysaccharide iron complex 180 mg 180 mg PO BID 30 days #60 caps 11/04/23 iron capsule (Pro Fe) Allergies Allergy/AdvReac Type Severity Reaction Status Date / Time acetaminophen [From PERCOCET] Allergy Severe S-SWELLS-OR Verified 10/29/23 13:18 AL/THROAT oxycodone [From PERCOCET] Allergy Severe S-SWELLS-OR Verified 10/29/23 13:18 AL/THROAT PFSH PFS Disclaimer: The information contained in this section may have been updated after the patient was seen, as this information can be updated by other users. Medical History Abdominal pain Acute bronchitis Acute exacerbation of chronic low back pain Acute exacerbation of chronic obstructive pulmonary disease Acute sinusitis Adjustment disorder Anxiety Asthma Asthma Bee sting reaction BPH (benign prostatic hyperplasia) Bronchitis Carotid artery stenosis Diarrhea Exposure to COVID-19 virus Finger laceration GERD (gastroesophageal reflux disease) History of DVT (deep vein thrombosis) HLD (hyperlipidemia) HTN (hypertension) Hypertension Low vitamin B12 level Lumbar degenerative disc disease Lumbar radiculopathy Neck pain Otitis media Peritonitis Pneumonia Posture abnormality Radiculopathy Rib injury Sinusitis Urinary incontinence Surgical History History of back surgery History of colectomy for diveticulitis History of elbow surgery History of splenectomy History of surgery on lower extremity Hx of colonoscopy S/P exploratory laparotomy Family History Other No significant family history Social History Smoking Status: Never smoker second hand exposure: No alcohol intake: never substance use type: denies use current occupational status: other Travel in the last 8 weeks: None housing: house caffeine: Yes ROS Obtained: Yes All systems reviewed & no additional complaints except as documented Physical Exam General General appearance: alert Respiratory Respiratory exam: Present normal lung sounds bilaterally Cardiovascular Cardiovascular exam: Present regular rate Back Exam Back exam: Present other (Patient has pain on the right flank surrounding the area where his pain pump is inserted but there is no erythema warmth purulent drainage wound is well-healed there is no midline spine pain otherwise neurovascularly intact distal to this) Neurological Exam Neurological exam: Present alert Medical Decision Making Siva Inquiry Pt receiving controlled substance: No Vital Signs: 11/05/23 19:44 11/05/23 19:38 11/05/23 20:01 Temperature 98.3 F Temperature Source Oral Pulse Rate 66 63 Pulse Rate [Left Radial] 73 Respiratory Rate 18 Blood Pressure 196/87 H 206/93 H Blood Pressure [Right Arm] 196/87 H Blood Pressure Mean [Right Arm] 123 Blood Pressure Source [Right Arm] Automatic Cuff Blood Pressure Position [Right Arm] Supine 02 Sat by Pulse Oximetry 97 99 98 Oxygen Delivery Method Room Air Medical Decision Narrative: Patient with chronic back pain presented today with a normal exam no history of injury. He has no midline pain on my exam has pain superficially around the pain pump itself which may be the source of his pain but no evidence clinically of infection. He has no signs or symptoms of [employer] compression cauda equina etc. No indication for any emergent imaging I offered him additional pain medication but he declined this and I advised that he follow-up closely with Dr. Gongora to discuss this further. Critical Care Critical Care Time Critical Care Time: No
[2023-11-05 20:28] VITALS: BP 206/93; PULSE 63; RESP 20; TEMP 36.7; O2SAT 97
== END 2023-11-05 20:29 | disposition home or self-care (01) ==
PROVIDERS: Emergency Provider Student in an Organized Health Care Education/Training Program; PCP Nurse Practitioner Family
DX: T85.840A Pain due to nervous system prosthetic devices, implants and grafts, initial encounter (principal); M25.551 Pain in right hip; G89.29 Other chronic pain; J44.9 Chronic obstructive pulmonary disease, unspecified; I65.29 Occlusion and stenosis of unspecified carotid artery; E78.5 Hyperlipidemia, unspecified; I10 Essential (primary) hypertension
CPT/HCPCS: 99283

== ENCOUNTER → 2023-11-07 08:49 | Outpatient (POV) | payer MEDICARE, SELFPAY ==
--- NOTE | 2023-11-07 09:28 | EXP.PAIN.PRO ---
Procedure Date: 11/07/23 Time: 09:28 Anesthesiologist:: Gia Henao APRN Complications:: None Pre-procedure Diagnosis:: Degenerative disc disease of lumbar spine with lumbar radiculopathy symptoms, lumbar postlaminectomy syndrome Post-procedure Diagnosis:: Same Indications for Procedure:: Patient is a pleasant 73-year-old male who presents today for follow-up. We are currently treating the patient for degenerative disc disease of lumbar spine with lumbar radiculopathy symptoms, lumbar postlaminectomy syndrome, osteoarthritis left shoulder, left knee pain, chronic pain syndrome. Today he rates his pain a 8 out of 10. Patient denies any new injuries or trauma however he does state that he has been experiencing tenderness around his intrathecal pump site. Patient states that the pain was bad enough that he went to the ER on the . Patient does state during that time he did have very high blood pressure and was given a follow-up appointment with primary care on the . Patient is currently managed with intrathecal morphine 1 mg/mL with a daily dose of 0.0999 mg/day. He denies any side effects from this medication. Patient is also managed with gabapentin 800 mg 4 times a day and methocarbamol 500 mg at bedtime. His Siva has been reviewed and is appropriate. Physical Exam: General: Alert and oriented x3, no acute distress, pleasant and cooperative Lungs: Respirations even and unlabored, symmetrical chest expansion Eyes: PERRL Musculoskeletal: Flexion and extension of lumbar [spine] somewhat guarded secondary to pain, [antalgic gait noted] point tenderness along superior and inferior aspects of the lateral pump incision Neurological: Speech clear, no gross sensory deficit Skin: Incision sites are clean, dry, minimal erythema noted, well-approximated, lower right lateral incision is still 2 areas of scabbing noted Procedure Details:: Informed consent was obtained and the risk and benefits of the procedure were explained to the patient. Patient was taken to the procedure room where noninvasive monitoring was placed including noninvasive blood pressure cuff and pulse oximeter. Patient's pump was interrogated and was reprogrammed to morphine 0.1 0.9 mg/day. The patient tolerated the procedure well with no complications. Plan and Disposition:: Due to the patient's point tenderness along the superior and inferior portions of the left lateral side of his pump incision I have recommended that we do trigger point injections. Risk and benefits were discussed with the patient and he would like to proceed forward with this plan of care. Patient did tolerate his intrathecal increase with no complications and was discharged neurologically intact. We will schedule the patient for trigger point injections around his right lateral pump site. Patient has been instructed to contact the clinic with any concerns before the next appointment. Dr. Gongora has reviewed this note and agrees with this plan of care. This note was dictated using voice recognition software and make contain errors or omissions. -- It Is medically necessary for this patient to continue to have their intrathecal pump refilled at regular intervals. This patient had an intrathecal pain pump implanted after meeting criteria of chronic intractable pain for greater than 3 months and failing conservative treatments. Patient has committed and been compliant to the treatment plan and all planned follow up care. Since implantation of the intrathecal pain pump, the patient has had decreased pain and been more functional. Oral medications have been reduced including intake of oral opioids. Patient continues to do well with intrathecal therapy with decrease in pain symptoms and increase in functional status. Stopping intrathecal medications can lead to life threatening withdrawal, seizures, cardiac arrest, severe pain, and possible . Pumps that are not refilled at regular intervals can be damages and cause and need for replacement. We continually titrate dose and concentration to optimize pain relief and function. We are limited in concentration for certain drugs to safely deliver medications through the pump and stay within the recommendations from the Polyanalgesic Consensus Committee Guidelines. Depending on dose and concentration these pumps may need to be refilled sooner than 3 months as we titrate.
[2023-11-07 09:46] VITALS: BP 199/96; PULSE 65; RESP 18; O2SAT 98; BMI 21.7
== END | disposition home or self-care (01) ==
PROVIDERS: PCP Nurse Practitioner Family; Visit Provider Nurse Practitioner Family
DX: M51.16 Intervertebral disc disorders with radiculopathy, lumbar region (principal); M96.1 Postlaminectomy syndrome, not elsewhere classified; M19.012 Primary osteoarthritis, left shoulder; M25.562 Pain in left knee; G89.4 Chronic pain syndrome; Z97.8 Presence of other specified devices; Z45.1 Encounter for adjustment and management of infusion pump
CPT/HCPCS: 62368; 99213; G0463

== ENCOUNTER 2023-11-26 08:52 | Day surgery (SDC) | payer MEDICARE, SELFPAY ==
[2023-11-26 09:12] VITALS: BP 167/87; PULSE 67; RESP 18; TEMP 36.9; O2SAT 97; BMI 22.8
[2023-11-26] MEDS: methylPREDNISolone ACETATE 80MG/ML VIAL 80 MG (09:30)
[2023-11-26] MEDS: BUPIVACAINE 0.25% 10ML INJ 25 MG IJ (09:30)
[2023-11-26] MEDS: LIDOCAINE 1% 5ML PF VIAL 5 ML (09:30)
--- NOTE | 2023-11-26 09:32 | P.PCN_ITS ---
Procedure Date: 11/26/23 Time: 09:20 Anesthesiologist:: Jorge Han CRNA Complications:: None Pre-procedure Diagnosis:: Pain surrounding medial border of the intrathecal pain pump. Post-procedure Diagnosis:: Same. Indications for Procedure:: Patient is a very pleasant 73-year-old male that comes our clinic today for trigger point injections of the medial border of the intrathecal pain pump pocket. Patient complaining of pain that he describes as constant. Pain increases when leaning back in a chair. Upon examination the patient has tenderness around the medial border of the intrathecal pain pump. However, no redness or swelling. No sign of infection. Procedure Details:: Details of the procedure explained to the patient. Patient taken to procedure room placed in sitting position. The area over the pump was cleansed using c hlorhexidine as a cleansing solution. Using a 25-gauge inch and half needle the superior, medial, inferior medial border of the intrathecal pain pump pocket was then fused after negative aspiration with a solution containing 1% lidocaine +0.25% Marcaine and 20 mg of Depo-Medrol. Patient tolerated procedure without difficulty. There are no complications. A total of 8 mL was injected. Plan and Disposition:: Patient was discharged without incident.
[2023-11-26 09:35] VITALS: BP 176/86; PULSE 64; RESP 16; O2SAT 97
[2023-11-26 09:38] VITALS: BP 104/74; PULSE 69; RESP 18; O2SAT 97
[2023-11-26 09:39] VITALS: BP 104/74; PULSE 69; RESP 18; O2SAT 97
== END 2023-11-26 09:35 | disposition home or self-care (01) ==
PROVIDERS: PCP Nurse Practitioner Family; Visit Provider Nurse Anesthetist, Certified Registered
DX: M79.18 Myalgia, other site (principal); Z97.8 Presence of other specified devices
CPT/HCPCS: 20552; 82607; 82728; 83540; 83550; 85025; J1040

== ENCOUNTER 2023-11-26 21:29 | Outpatient (CLI) | payer MEDICARE, SELFPAY ==
[2023-11-26 16:59] LABS: Basophils # 0.1 K/mm3 (0-0.2); Basophils % 0.6 % (0.1-2.0); Eosinophils # 0.3 K/mm3 (0.0-0.4); Eosinophils % 3.7 % (0.1-12.0); Hematocrit 40.7 % (42.0-52.0); Hemoglobin 13.2 g/dL (14.1-18.0); Lymphocytes # 2.6 K/mm3 (0.7-4.5); Lymphocytes % 33.3 % (10-50); Mean Corpuscular HGB Conc 32.3 g/dL (31.8-35.4); Mean Corpuscular Hemoglobin 31.6 pg (27.0-31.2); Mean Corpuscular Volume 97.7 fl (80-94); Monocytes # 0.5 K/mm3 (0.1-1.0); Monocytes % 5.8 % (1.7-9.3); Neutrophils # 4.5 K/mm3 (1.8-7.8); Neutrophils % 56.7 % (37.0-80.0); Platelet Count 390 K/mm3 (142-424); Red Blood Count 4.17 M/mm3 (4.60-6.20); Red Cell Distribution Width 13.5 % (11.5-17.5); White Blood Count 7.9 K/mm3 (4.8-10.8)
[2023-11-26 17:25] LABS: Iron 81 ug/dL (49-181)
[2023-11-26 17:34] LABS: Total Iron Binding Capacity 302 ug/dL (261-462)
[2023-11-26 18:16] LABS: Vitamin B12 312 pg/mL (239-931)
== END 2023-11-26 23:59 ==
LOC: LAB.DROPOF 21:29
PROVIDERS: PCP Nurse Practitioner Family; Visit Provider Nurse Practitioner Family
DX: D50.9 Iron deficiency anemia, unspecified (principal); E53.8 Deficiency of other specified B group vitamins
CPT/HCPCS: 82607; 82728; 83540; 83550; 85025

== ENCOUNTER → 2023-12-13 10:04 | Outpatient (POV) | payer MEDICARE, SELFPAY ==
--- NOTE | 2023-12-13 10:44 | A.OFFVIS_ITS ---
[facility] Pain Management SOAP Note Subjective:: Patient is a pleasant 73-year-old male who presents today for follow-up of his trigger point injections on 11/26/2023. We are currently treating the patient for degenerative disc disease of lumbar spine with lumbar radiculopathy symptoms, lumbar postlaminectomy syndrome, myofascial pain. Today he rates his pain a 3 out of 10. Patient denies any new trauma or injury. He does state that he feels like the trigger point injections did help all the tenderness he was experiencing all along the lower aspect of his pump. He states it has been much better. Patient does state he feels like he is sleeping a lot and does feel little weak and he is unsure if it is related to the pump. Patient is currently managed with morphine 1 mg/mL with a daily dose of 0.1049 mg/day. His Siva has been reviewed and is appropriate. Review of Systems: General: No recent weight changes, no fever, no sleep disturbances Respiratory: No cough, no shortness of air, no recurring pulmonary infections Cardiovascular/peripheral vascular: No chest pain, no palpitations, no edema, no shortness of breath Gastrointestinal: No new onset incontinence, normal bowel movements reported Genitourinary: No new onset incontinence Musculoskeletal: Low back pain Psychiatric: [Normal mood/affect] Neurological: [Denies weakness in extremities], [denies balance issues] Objective:: Physical Exam: General: Alert and oriented x3, no acute distress, pleasant and cooperative Lungs: Respirations even and unlabored, symmetrical chest expansion Eyes: PERRL Musculoskeletal: Flexion and extension of lumbar [spine] somewhat guarded secondary to pain, [antalgic gait noted] Neurological: Speech clear, no gross sensory deficit Assessment:: Degenerative disc disease of lumbar spine with lumbar radiculopathy symptoms, myofascial pain, lumbar postlaminectomy syndrome Plan:: Patient is doing well following his trigger point injections around his pump site. I have discussed with the patient that we can turn his pump down if he feels like it is causing increased drowsiness. Patient does state that it is helping significantly his pain and at this time he would like to leave it as it is. I have counseled the patient that he can call us between now and his next appointment if he decides he would like to decrease this. Patient will return to clinic on or before his next intrathecal pump refill date of March 22, 2024. We will see the patient back in the clinic at the next intrathecal refill. Patient has been instructed to contact the clinic with any concerns before the next appointment. Dr. Gongora has reviewed this note and agrees with this plan of care. This note was dictated using voice recognition software and make contain errors or omissions. -- It Is medically necessary for this patient to continue to have their intrathecal pump refilled at regular intervals. This patient had an intrathecal pain pump implanted after meeting criteria of chronic intractable pain for greater than 3 months and failing conservative treatments. Patient has committed and been compliant to the treatment plan and all planned follow up care. Since implantation of the intrathecal pain pump, the patient has had decreased pain and been more functional. Oral medications have been reduced including intake of oral opioids. Patient continues to do well with intrathecal therapy with decrease in pain symptoms and increase in functional status. Stopping intrathecal medications can lead to life threatening withdrawal, seizures, cardiac arrest, severe pain, and possible . Pumps that are not refilled at regular intervals can be damages and cause and need for replacement. We continually titrate dose and concentration to optimize pain relief and function. We are limited in concentration for certain drugs to safely deliver medications through the pump and stay within the recommendations from the Polyanalgesic Consensus Committee Guidelines. Depending on dose and concentration these pumps may need to be refilled sooner than 3 months as we titrate. [facility] Disclaimer: The information contained in this section may have been updated after the patient was seen, as this information can be updated by other users. Medical History Abdominal pain Acute bronchitis Acute exacerbation of chronic low back pain Acute exacerbation of chronic obstructive pulmonary disease Acute sinusitis Adjustment disorder Anxiety Asthma Asthma Bee sting reaction BPH (benign prostatic hyperplasia) Bronchitis Carotid artery stenosis Diarrhea Exposure to COVID-19 virus Finger laceration GERD (gastroesophageal reflux disease) History of DVT (deep vein thrombosis) HLD (hyperlipidemia) HTN (hypertension) Hypertension Low vitamin B12 level Lumbar degenerative disc disease Lumbar radiculopathy Neck pain Otitis media Peritonitis Pneumonia Posture abnormality Radiculopathy Rib injury Sinusitis Urinary incontinence Surgical History History of back surgery History of colectomy for diveticulitis History of elbow surgery History of splenectomy History of surgery on lower extremity Hx of colonoscopy S/P exploratory laparotomy Family History Other No significant family history Social History Smoking Status: Never smoker second hand exposure: No alcohol intake: never substance use type: denies use current occupational status: retired Travel in the last 8 weeks: None housing: house caffeine: Yes
[2023-12-13 12:37] VITALS: BP 175/82; PULSE 64; RESP 18; O2SAT 98; BMI 21.7
== END ==
LOC: SC.PAIN 10:05
PROVIDERS: PCP Nurse Practitioner Family; Visit Provider Nurse Practitioner Family
DX: M51.16 Intervertebral disc disorders with radiculopathy, lumbar region (principal); M79.10 Myalgia, unspecified site; M96.1 Postlaminectomy syndrome, not elsewhere classified; Z97.8 Presence of other specified devices
CPT/HCPCS: 99212; G0463

== ENCOUNTER 2023-12-24 18:24 | Outpatient (CLI) | payer MEDICARE, SELFPAY ==
[2023-12-24 19:14] LABS: Basophils % 0.4 % (0.1-2.0); Eosinophils # 0.3 K/mm3 (0.0-0.4); Eosinophils % 3.3 % (0.1-12.0); Hematocrit 41.8 % (42.0-52.0); Hemoglobin 13.4 g/dL (14.1-18.0); Lymphocytes # 3.1 K/mm3 (0.7-4.5); Lymphocytes % 32.4 % (10-50); Mean Corpuscular HGB Conc 32.1 g/dL (31.8-35.4); Mean Corpuscular Hemoglobin 32.1 pg (27.0-31.2); Mean Corpuscular Volume 100.2 fl (80-94); Monocytes # 0.6 K/mm3 (0.1-1.0); Monocytes % 6.1 % (1.7-9.3); Neutrophils # 5.5 K/mm3 (1.8-7.8); Neutrophils % 57.8 % (37.0-80.0); Platelet Count 329 K/mm3 (142-424); Red Blood Count 4.17 M/mm3 (4.60-6.20); Red Cell Distribution Width 13.7 % (11.5-17.5); White Blood Count 9.5 K/mm3 (4.8-10.8)
[2023-12-24 19:30] LABS: Iron 62 ug/dL (49-181)
[2023-12-24 19:42] LABS: Total Iron Binding Capacity 297 ug/dL (261-462)
[2023-12-24 20:57] LABS: Ferritin 42.7 ng/ml (17.9-464)
== END 2023-12-24 23:59 ==
LOC: LAB.DROPOF 18:24
PROVIDERS: PCP Nurse Practitioner Family; Visit Provider Nurse Practitioner Family
DX: D50.9 Iron deficiency anemia, unspecified (principal); D64.9 Anemia, unspecified
CPT/HCPCS: 82728; 83540; 83550; 85025

== ENCOUNTER 2024-01-21 10:59 | Day surgery (SDC) | payer MEDICARE, SELFPAY ==
[2024-01-21 11:21] VITALS: BP 140/83; PULSE 53; RESP 18; TEMP 36.6; O2SAT 98; BMI 22.3
--- NOTE | 2024-01-21 11:44 | EXP.PAIN.PRO ---
Procedure Date: 01/21/24 Time: 11:30 Anesthesiologist:: Jorge Han CRNA Complications:: None Pre-procedure Diagnosis:: Degenerative disc lumbar spine multilevels. Lumbar radiculopathy. Lumbar postlaminectomy syndrome. Post-procedure Diagnosis:: Same. Indications for Procedure:: Patient is a very pleasant 73-year-old male that comes our clinic today for intrathecal pain pump interrogation refill. He is currently being managed with morphine sulfate 1 mg/mL at a rate of 0.1049 milligrams per day. Patient doing well with his current settings. Not requesting changes. Not reporting side effects. Procedure Details:: Details of the procedure explained to the patient. The patient taken procedure room placed in sitting position. The area of the pump is cleansed using chlorhexidine's cleansing solution. The pump was interrogated. The pump was accessed with ease using a 22-gauge inch and half needle. 9 mL of solution was withdrawn and discarded appropriate. The pump was then filled with 20 cc of solution containing morphine sulfate 1 mg/mL. The rate will continue at 0.1049 mg grams per day. Patient tolerated procedure without difficulty. No complications. Plan and Disposition:: Patient was discharged out incident.
[2024-01-21 11:45] VITALS: BP 142/81; PULSE 65; RESP 16; O2SAT 98
[2024-01-21 14:18] LABS: Amphetamine/Metha Screen,Urine Negative ng/ml (<1000); Barbiturates Screen,Urine Negative ng/ml (<200)
[2024-01-21 14:19] LABS: Benzodiazepines Screen,Urine Negative ng/ml (<200)
[2024-01-21 14:20] LABS: Cannabinoid Screen,Urine Negative ng/ml (<50); Cocaine Screen,Urine Negative ng/ml (<300)
[2024-01-21 14:21] LABS: Methadone Screen,Urine Negative ng/ml (<300); Opiate Screen,Urine Negative ng/ml (<300)
[2024-01-21 14:22] LABS: Phencyclidine Screen,Urine Negative ng/ml (<25)
[2024-01-29 11:29] LABS: Codeine Negative (Cutoff=100); Hydrocodone Negative (Cutoff=100); Hydromorphone Negative (Cutoff=100); Morphine Positive (.); Opiates Positive (.)
== END 2024-01-21 11:45 | disposition home or self-care (01) ==
PROVIDERS: Anesthesiology; PCP Nurse Practitioner Family; Visit Provider Nurse Anesthetist, Certified Registered
DX: M51.16 Intervertebral disc disorders with radiculopathy, lumbar region (principal); M96.1 Postlaminectomy syndrome, not elsewhere classified; Z97.8 Presence of other specified devices; Z45.1 Encounter for adjustment and management of infusion pump
CPT/HCPCS: 80307; 80361; 80365; 95991; G0480

== ENCOUNTER 2024-02-01 18:17 | Emergency (ER) | payer MEDICARE, SELFPAY ==
[2024-02-01 18:20] VITALS: BP 165/58; PULSE 75; RESP 16; TEMP 37.1; O2SAT 95; BMI 23.8
[2024-02-01 18:46] LABS: Basophils # 0.1 K/mm3 (0-0.2); Basophils % 0.9 % (0.1-2.0); Eosinophils # 0.2 K/mm3 (0.0-0.4); Eosinophils % 1.4 % (0.1-12.0); Hematocrit 44.1 % (42.0-52.0); Hemoglobin 13.8 g/dL (14.1-18.0); Lymphocytes # 2.9 K/mm3 (0.7-4.5); Lymphocytes % 24.9 % (10-50); Mean Corpuscular HGB Conc 31.2 g/dL (31.8-35.4); Mean Corpuscular Hemoglobin 31.8 pg (27.0-31.2); Mean Corpuscular Volume 101.9 fl (80-94); Mean Platelet Volume 7.3 fl (7.4-10.4); Monocytes # 0.5 K/mm3 (0.1-1.0); Monocytes % 4.1 % (1.7-9.3); Neutrophils # 7.9 K/mm3 (1.8-7.8); Neutrophils % 68.8 % (37.0-80.0); Platelet Count 443 K/mm3 (142-424); Red Blood Count 4.33 M/mm3 (4.60-6.20); Red Cell Distribution Width 13.9 % (11.5-17.5); White Blood Count 11.5 K/mm3 (4.8-10.8)
[2024-02-01 18:49] LABS: Chloride 107 mmol/L (98-107); Sodium 139 mmol/L (136-145)
[2024-02-01 18:50] LABS: Potassium 3.9 mmoL/L (3.5-5.1)
[2024-02-01 18:52] LABS: Alanine Aminotransferase 21 U/L (12-78); Albumin Level 3.8 g/dl (3.5-5.0); Albumin/Globulin Ratio 1.3 (1.1-1.8); Alkaline Phosphatase 91 U/L (38-126); Anion Gap 6.9 mEq/L (5-15); Aspartate Amino Transferase 30 U/L (17-59); Bilirubin,Total 0.5 mg/dl (0.2-1.3); Blood Urea Nitrogen 13 mg/dl (9-20); Carbon Dioxide 29 mmol/L (22.0-30.0); Creatinine Clearance Estimated 68 mL/min (50-200); Estimated Glomerular Filt Rate 83 ml/min (>60); GFR (African American) 101 ML/MIN (>60); Total Protein,Serum 6.8 g/dl (6.3-8.2)
[2024-02-01] MEDS: LACTATED RINGERS 1000ML 1,000 ML 999 ML IV ×2 (18:52→20:05)
[2024-02-01 18:53] LABS: Calcium 9.3 mg/dl (8.4-10.2); Glucose 124 mg/dl (74-100)
[2024-02-01 19:03] VITALS: BP 121/71; PULSE 65; O2SAT 99
--- NOTE | 2024-02-01 19:28 | ED_ITS ---
Discharge Plan Disposition Patient Disposition: Home, Self-Care Prescriptions Prescriptions: New ondansetron 4 mg tablet,disintegrating 4 mg PO Q6H PRN (Reason: nausea and vomiting) Qty: 10 0RF No Action Pro Fe 180 mg iron capsule 180 mg PO DAILY 30 Days Qty: 30 3RF loratadine 10 mg tablet 10 mg PO DAILY PRN (Reason: allergic symptoms) 30 Days Qty: 30 3RF morphine (PF) 1 mg/mL Solution 1 mg epidural CONT Rx Instructions: SEE LAST PUMP READING FOR DAILY DOSE. sertraline 25 mg tablet 25 mg PO DAILY Referrals Follow up/Referrals: Senia Espinoza APRN [Primary Care Provider] - See instructions Activity Restrictions/Add. Instructions Additional Instructions/Restrictions: Nausea medication, Zofran, sent to pharmacy. Take this every 6-8 hours as needed for nausea and vomiting. 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 Call your family doctor to establish care for this visit to the emergency department and schedule follow-up within 48 hours to ensure improvement. If you have any worsening of your condition or any other concerning signs or symptoms, return to the emergency department or your primary care doctor for further evaluation. Clinical Impressions Clinical Impression: Dehydration Diarrhea Qualifiers: Diarrhea type: presumed infectious Qualified Code(s): R19.7 - Diarrhea, unspecified Instructions Patient Instructions: DI for Diarrhea and Traveler's Diarrhea -- Adult, DI for Diarrhea and Traveler's Diarrhea -- Child, DI for Nausea -- Adult, DI for Nausea -- Child Discharge ED Provider: Chris Reese General Adult HPI General Chief complaint: Nausea/Vomiting/Diarrhea Stated complaint: diarrhea Time Seen by Provider: 02/01/24 18:21 Mode of Arrival: Ambulatory Source of Information: Patient Limitations: No Limitations Description of Symptoms (Recalled from ER Triage Doc. by RN): Patient reports on and off diarrhea for 2 weeks. States he is eating and drinking fine however it is running straight through him . Family member states the patient had abdominal surgery in September. History of Present Illness HPI narrative: 73-year-old male no relevant medical history presenting with diarrhea. Is been going on for about 2 weeks on and off. States that he eats, keeps everything down, it goes right through him. He has been taking Pepto-Bismol for this. No blood in his stool. Feeling weak due to amount of diarrhea. Please note that above description of symptoms, in this electronic medical record under categorization of recalled from ER triage doctor by RN are reflective of an initial nursing assessment, however, is not reflective of my full history and physical exam that was personally taken and clarified. Consequentially, this preceding description of symptoms, which may include the patient's categorized chief complaint in the EMR, do not reflect my personal clinical impression, and the ultimate description of history of present illness and patient stated complaints should be deferred to this section of the note. Unless stated otherwise or congruent with this section of the note, additional signs, symptoms, or incongruence should be interpreted as inaccurate with my clinical impression. Related Data Home Medications Medication Instructions Recorded Confirmed morphine (PF) 1 mg/mL injection 1 mg epidural CONT Pain 11/07/23 01/21/24 solution sertraline 25 mg tablet 25 mg PO DAILY MOOD 11/07/23 01/21/24 Previous Rx's Medication Instructions Recorded loratadine 10 mg tablet 10 mg PO DAILY PRN allergic 12/24/23 symptoms 30 days #30 tabs polysaccharide iron complex 180 mg 180 mg PO DAILY 30 days #30 caps 01/21/24 iron capsule (Pro Fe) ondansetron 4 mg disintegrating 4 mg PO Q6H PRN nausea and 02/01/24 tablet vomiting #10 tabs Allergies Allergy/AdvReac Type Severity Reaction Status Date / Time acetaminophen [From PERCOCET] Allergy Severe S-SWELLS-OR Verified 01/21/24 12:58 AL/THROAT oxycodone [From PERCOCET] Allergy Severe S-SWELLS-OR Verified 01/21/24 12:58 AL/THROAT PFSH PFSH Disclaimer: The information contained in this section may have been updated after the patient was seen, as this information can be updated by other users. Medical History Abdominal pain Acute bronchitis Acute exacerbation of chronic low back pain Acute exacerbation of chronic obstructive pulmonary disease Acute sinusitis Adjustment disorder Anxiety Asthma Asthma Bee sting reaction BPH (benign prostatic hyperplasia) Bronchitis Carotid artery stenosis Diarrhea Exposure to COVID-19 virus Finger laceration GERD (gastroesophageal reflux disease) History of DVT (deep vein thrombosis) HLD (hyperlipidemia) HTN (hypertension) Hypertension Low vitamin B12 level Lumbar degenerative disc disease Lumbar radiculopathy Neck pain Otitis media Peritonitis Pneumonia Posture abnormality Radiculopathy Rib injury Sinusitis Urinary incontinence Surgical History History of back surgery History of colectomy for diveticulitis History of elbow surgery History of splenectomy History of surgery on lower extremity Hx of colonoscopy S/P exploratory laparotomy Family History Other No significant family history Social History Smoking Status: Unknown if ever smoked second hand exposure: No alcohol intake: never substance use type: denies use current occupational status: retired Travel in the last 8 weeks: None housing: house caffeine: Yes ROS Obtained: Yes All systems reviewed & no additional complaints except as documented Physical Exam General General appearance: alert and in no apparent distress Head Head exam: atraumatic and normocephalic Eye Eye exam: Present normal appearance, PERRL and EOMI ENT ENT exam: Present mucous membranes moist Neck Neck exam: Present normal inspection, full ROM and trachea midline Respiratory Respiratory exam: Absent respiratory distress, wheezes, stridor, accessory muscle use or prolonged expiratory phase Cardiovascular Cardiovascular exam: Present normal rhythm Abdominal Exam Abdominal exam: Present soft; Absent distention, tenderness, guarding, rebound or rigidity Extremities Exam Extremities exam: Absent edema Neurological Exam Neurological exam: Present alert, oriented X3, CN II-XII intact and normal gait; Absent motor sensory deficit Skin Skin exam: Present warm and dry; Absent diaphoresis or erythema Medical Decision Making Medical Records Medical records reviewed: Yes I reviewed the patient's medical records. Siva Inquiry Pt receiving controlled substance: No Siva was queried for this patient: No Vital Signs: 02/01/24 18:20 02/01/24 19:03 02/01/24 19:30 Temperature 98.8 F Temperature Source Oral Pulse Rate 65 59 L Pulse Rate [Radial] 75 Respiratory Rate 16 Blood Pressure 121/71 139/77 Blood Pressure [Right Arm] 165/58 H Blood Pressure Mean 100 97 Blood Pressure Mean [Right Arm] 93 Blood Pressure Source [Right Arm] Automatic Cuff Blood Pressure Position [Right Arm] Sitting 02 Sat by Pulse Oximetry 95 99 99 Oxygen Delivery Method Room Air Room Air Room Air 02/01/24 20:00 Temperature Temperature Source Pulse Rate 54 L Pulse Rate [Radial] Respiratory Rate Blood Pressure 138/76 Blood Pressure [Right Arm] Blood Pressure Mean 106 Blood Pressure Mean [Right Arm] Blood Pressure Source [Right Arm] Blood Pressure Position [Right Arm] 02 Sat by Pulse Oximetry 98 Oxygen Delivery Method Room Air Lab Data Lab Results 02/01/24 18:39: WBC 11.5 H, RBC 4.33 L, Hgb 13.8 L, Hct 44.1, MCV 101.9 H, MCH 31.8 H, MCHC 31.2 L, RDW 13.9, Plt Count 443 H, MPV 7.3 L, Neut % (Auto) 68.8, Lymph % (Auto) 24.9, [place] % (Auto) 4.1, Eos % (Auto) 1.4, Baso % (Auto) 0.9, N eut # (Auto) 7.9 H, Lymph # (Auto) 2.9, [place] # (Auto) 0.5, Eos # (Auto) 0.2, Baso # (Auto) 0.1, Sodium 139, Potassium 3.9, Chloride 107, Carbon Dioxide 29, Anion Gap 6.9, BUN 13, Creatinine 0.90, Estimated Creat Clear 68, Estimated GFR 83, Est GFR ( Amer) 101, Glucose 124 H, Calcium 9.3, Total Bilirubin 0.5, AST 30, ALT 21, Alkaline Phosphatase 91, Total Protein 6.8, Albumin 3.8, Globulin 3.0, Albumin/Globulin Ratio 1.3 02/01/24 18:39 02/01/24 18:39 Orders (Tests/Meds): ED MEDICATIONS Generic Name Dose Route Start Last Admin Trade Name Freq PRN Reason Stop Dose Admin Lactated Ringer's 1,000 mls @ 999 mls/hr 02/01/24 20:01 02/01/24 20:05 Lactated Ringer's 1000 Ml Bag IV 02/01/24 21:01 999 mls/hr .Q1H1M ONE Administration Discontinued Medications Generic Name Dose Route Start Last Admin Trade Name Freq PRN Reason Stop Dose Admin Lactated Ringer's 1,000 mls @ 999 mls/hr 02/01/24 18:26 02/01/24 18:52 Lactated Ringer's 1000 Ml Bag IV 02/01/24 19:26 999 mls/hr .Q1H1M ONE Administration Loperamide HCl 4 mg 02/01/24 19:28 02/01/24 19:33 Loperamide 2mg Capsule PO 02/01/24 19:29 4 mg ONCE ONE Administration Ondansetron HCl 4 mg 02/01/24 19:28 02/01/24 19:33 Ondansetron 4mg/2ml Vial IV 02/01/24 19:29 4 mg ONCE ONE Administration ORDERS Category Date Time Status CBC w/Auto Diff [Complete Blood Count Auto Diff] Stat Lab 02/01/24 18:39 Completed CMP [Comprehensive Metabolic Panel] Stat Lab 02/01/24 18:39 Completed Medical Decision Narrative: 73-year-old male no relevant medical history presenting with diarrhea. Is been going on for about 2 weeks on and off. States that he eats, keeps everything down, it goes right through him. He has been taking Pepto-Bismol for this. No blood in his stool. Feeling weak due to amount of diarrhea. History obtained with patient. On arrival, patient hemodynamically stable, afebrile, nontachycardic, well-appearing, appears tired. Abdomen soft, nontender, nondistended. Differential includes medication side effect, gastroenteritis, pancreatitis, among others. Patient given fluids, Zofran, loperamide. Workup independently interpreted and significant for nonactionable CBC or chemistry. Lipase negative. On reevaluation, patient feeling much better after meds including Zofran and loperamide. Discussion had about home-going, patient opting for 1 more liter of fluids prior to DC just because of his dehydration, I feel this is appropriate as urine sample at bedside is still dark yellow. On reevaluation, patient feeling much better. Zofran and loperamide recommended. Because patient at baseline without signs or symptoms of clinical decompensation, deemed appropriate for discharge. Results were relayed to patient who voiced understanding and were agreeable to outpatient management and follow up. I discussed my clinical impression with patient and answered all questions. At this time, the evidence for any other entities in the differential is insufficient to warrant any further testing or ED observation. This was explained as well. Advisory was given that persistent or worsening symptoms require further evaluation. I confirmed the understanding of this discussion.. Critical Care Critical Care Time Critical Care Time: No
[2024-02-01 19:30] VITALS: BP 139/77; PULSE 59; O2SAT 99
[2024-02-01] MEDS: LOPERAMIDE 2MG CAPSULE 4 MG PO (19:33)
[2024-02-01] MEDS: ONDANSETRON 4MG/2ML VIAL 4 MG IV (19:33)
[2024-02-01 20:00] VITALS: BP 138/76; PULSE 54; O2SAT 98
--- NOTE | 2024-02-01 20:07 | PC.NURSE ---
Patient requested coffee. Provided education to patient regarding the increased peristalysis effects of coffee. Patient verbalized understanding. Provided patient with soda per patient request. No further needs expressed at this time.
[2024-02-01 20:45] VITALS: BP 138/76; PULSE 54; RESP 17; TEMP 36.7; O2SAT 98
== END 2024-02-01 20:45 | disposition home or self-care (01) ==
PROVIDERS: Emergency Provider Emergency Medicine; PCP Nurse Practitioner Family
DX: E86.0 Dehydration (principal); R19.7 Diarrhea, unspecified; R53.1 Weakness; I65.29 Occlusion and stenosis of unspecified carotid artery; I10 Essential (primary) hypertension; E78.5 Hyperlipidemia, unspecified; K21.9 Gastro-esophageal reflux disease without esophagitis; J45.909 Unspecified asthma, uncomplicated
CPT/HCPCS: 80053; 85025; 96361; 96374; 99284; J2405

== ENCOUNTER 2024-02-24 18:00 | Outpatient (CLI) | payer MEDICARE, SELFPAY ==
[2024-02-24 18:58] LABS: Alanine Aminotransferase 16 U/L (12-78); Albumin/Globulin Ratio 1.4 (1.1-1.8); Alkaline Phosphatase 116 U/L (38-126); Aspartate Amino Transferase 29 U/L (17-59); Bilirubin,Total 0.8 mg/dl (0.2-1.3); Blood Urea Nitrogen 10 mg/dl (9-20); Calcium 9.6 mg/dl (8.4-10.2); Carbon Dioxide 31 mmol/L (22.0-30.0); Chloride 107 mmol/L (98-107); Estimated Glomerular Filt Rate 95 ml/min (>60); GFR (African American) 115 ML/MIN (>60); Globulin 2.8 g/dL (1.3-3.2); Glucose 95 mg/dl (74-100); Sodium 142 mmol/L (136-145); Total Protein,Serum 6.8 g/dl (6.3-8.2)
[2024-02-24 19:42] LABS: Vitamin B12 596 pg/mL (239-931)
[2024-02-24 20:42] LABS: Ferritin 38.8 ng/ml (17.9-464)
[2024-02-24 23:34] LABS: Basophils # 0.1 K/mm3 (0-0.2); Eosinophils # 0.4 K/mm3 (0.0-0.4); Eosinophils % 3.8 % (0.1-12.0); Hematocrit 42.9 % (42.0-52.0); Hemoglobin 13.9 g/dL (14.1-18.0); Lymphocytes # 3.4 K/mm3 (0.7-4.5); Lymphocytes % 35.4 % (10-50); Mean Corpuscular HGB Conc 32.4 g/dL (31.8-35.4); Mean Corpuscular Hemoglobin 32.5 pg (27.0-31.2); Mean Corpuscular Volume 100.2 fl (80-94); Mean Platelet Volume 10.8 fl (7.4-10.4); Monocytes # 0.5 K/mm3 (0.1-1.0); Monocytes % 5.4 % (1.7-9.3); Neutrophils # 5.3 K/mm3 (1.8-7.8); Neutrophils % 54.5 % (37.0-80.0); Platelet Count 437 K/mm3 (142-424); Red Blood Count 4.29 M/mm3 (4.60-6.20); White Blood Count 9.7 K/mm3 (4.8-10.8)
== END 2024-02-24 23:59 | disposition home or self-care (01) ==
LOC: LAB.DROPOF 02-25 07:43
PROVIDERS: PCP Nurse Practitioner Family; Visit Provider Nurse Practitioner Family
DX: D50.9 Iron deficiency anemia, unspecified (principal); E53.8 Deficiency of other specified B group vitamins; E86.0 Dehydration
CPT/HCPCS: 80053; 82607; 82728; 85025

== ENCOUNTER 2024-03-23 22:30 | Emergency (ER) | payer MEDICARE, SELFPAY ==
[2024-03-23 22:32] VITALS: BP 170/93; PULSE 82; RESP 18; TEMP 36.6; O2SAT 99; BMI 22.3
--- NOTE | 2024-03-23 22:34 | ED_ITS ---
<Statement entered by Kenia Jones MD - 03/23/24 23:00> I was consulted by the NAVARRO, and we discussed the complexity of the problems being addressed. I approved the treatment and management plan for this patient's care in the emergency department, thus performing a substantive portion of the medical decision making. Kenia Jones MD, LOS, FACEP Discharge Plan Disposition Patient Disposition: Home, Self-Care Prescriptions Prescriptions: No Action Pro Fe 180 mg iron capsule 180 mg PO DAILY 30 Days Qty: 30 3RF loratadine 10 mg tablet 10 mg PO DAILY PRN (Reason: allergic symptoms) 30 Days Qty: 30 3RF ondansetron 4 mg tablet,disintegrating 4 mg PO Q6H PRN (Reason: nausea and vomiting) Qty: 10 0RF morphine (PF) 1 mg/mL Solution 1 mg epidural CONT Rx Instructions: SEE LAST PUMP READING FOR DAILY DOSE. sertraline 25 mg tablet 25 mg PO DAILY Referrals Follow up/Referrals: Senia Espinoza APRN [Primary Care Provider] - See instructions Activity Restrictions/Add. Instructions Additional Instructions/Restrictions: Please follow-up with your primary care provider. Please return to the emergency department if you develop any new or worsening symptoms or become concerned for your health. Clinical Impressions Clinical Impression: Generalized muscle weakness, Hypokalemia Discharge ED Provider: Jesus Esquivel General Adult HPI <MORGAN Bah - Last Filed: 03/23/24 22:47> General Chief complaint: Weakness Stated complaint: weakness, hurting all over Time Seen by Provider: 03/23/24 22:34 History of Present Illness HPI narrative: Patient is here for evaluation of weakness. Patient reports that he has been having weakness for the last 2 months but is nonspecific on how. Patient states that he believes he is dehydrated but cannot elaborate further. Patient does have a history of chronic pain with an indwelling morphine pump, history of iron deficiency anemia, history of B12 deficiency. Patient currently denies chest pain fever chills hemoptysis hematochezia melena nausea diarrhea but does report intermittent vomiting with p.o. intake over the last 2 months. Patient does not give any acute history or provoking incident. Related Data Home Medications Medication Instructions Recorded Confirmed morphine (PF) 1 mg/mL injection 1 mg epidural CONT Pain 11/07/23 02/24/24 solution sertraline 25 mg tablet 25 mg PO DAILY MOOD 11/07/23 02/24/24 Previous Rx's Medication Instructions Recorded loratadine 10 mg tablet 10 mg PO DAILY PRN allergic 12/24/23 symptoms 30 days #30 tabs polysaccharide iron complex 180 mg 180 mg PO DAILY 30 days #30 caps 01/21/24 iron capsule (Pro Fe) ondansetron 4 mg disintegrating 4 mg PO Q6H PRN nausea and 02/01/24 tablet vomiting #10 tabs Allergies Allergy/AdvReac Type Severity Reaction Status Date / Time acetaminophen [From PERCOCET] Allergy Severe S-SWELLS-OR Verified 02/24/24 13:23 AL/THROAT oxycodone [From PERCOCET] Allergy Severe S-SWELLS-OR Verified 02/24/24 13:23 AL/THROAT PFSH <MORGAN Bah - Last Filed: 03/23/24 22:47> [facility] Disclaimer: The information contained in this section may have been updated after the patient was seen, as this information can be updated by other users. Medical History Abdominal pain Posture abnormality Diarrhea Lumbar degenerative disc disease Peritonitis Urinary incontinence Bee sting reaction Anxiety Low vitamin B12 level Adjustment disorder Acute sinusitis Acute bronchitis Acute exacerbation of chronic obstructive pulmonary disease Rib injury BPH (benign prostatic hyperplasia) Asthma Hypertension Acute exacerbation of chronic low back pain Bronchitis Exposure to COVID-19 virus Sinusitis Carotid artery stenosis Asthma GERD (gastroesophageal reflux disease) History of DVT (deep vein thrombosis) HLD (hyperlipidemia) HTN (hypertension) Radiculopathy Neck pain Finger laceration Otitis media Pneumonia Lumbar radiculopathy Surgical History S/P exploratory laparotomy Hx of colonoscopy History of colectomy for diveticulitis History of elbow surgery History of surgery on lower extremity History of splenectomy History of back surgery Family History Other No significant family history Social History Smoking Status: Never smoker second hand exposure: No alcohol intake: never substance use type: denies use current occupational status: retired Travel in the last 8 weeks: None housing: house caffeine: Yes <MORGAN Bah - Last Filed: 03/23/24 22:47> ROS Obtained: Yes Systems reviewed as appropriate & no additional complaints except as documented Physical Exam <MORGAN Bah - Last Filed: 03/23/24 22:47> General General appearance: alert and in no apparent distress Head Head exam: atraumatic and normal inspection Eye Eye exam: Present normal appearance, PERRL and EOMI ENT ENT exam: Present normal exam and mucous membranes moist; Absent normal oropharynx (Patient is edentulous) Neck Neck exam: Present normal inspection and full ROM Chest Chest inspection: Present normal inspection and symmetric chest wall rise Respiratory Respiratory exam: Present normal lung sounds bilaterally Cardiovascular Cardiovascular exam: Present regular rate, normal rhythm and normal heart sounds Abdominal Exam Abdominal exam: Present soft and normal bowel sounds; Absent tenderness, guarding or rebound Extremities Exam Extremities exam: Present normal inspection and full ROM Back Exam Back exam: Present normal inspection and full ROM; Absent tenderness Neurological Exam Neurological exam: Present alert, oriented X3 and CN II-XII intact Psychiatric Psychiatric exam: Present normal affect and normal mood Skin Skin exam: Present warm, dry and normal color Medical Decision Making <MORGAN Bah - Last Filed: 03/23/24 22:47> Medical Records Medical records reviewed: Yes I reviewed the patient's medical records. Siva Inquiry Pt receiving controlled substance: No Vital Signs: 03/23/24 22:32 Temperature 98 F Temperature Source Oral Pulse Rate [Right Brachial] 82 Respiratory Rate 18 Blood Pressure [Right Arm] 170/93 H Blood Pressure Mean [Right Arm] 118 02 Sat by Pulse Oximetry 99 Oxygen Delivery Method Room Air Lab Data Lab results reviewed: Yes I reviewed the patient's lab results. Lab Results 03/23/24 23:00: WBC 8.7, RBC 4.10 L, Hgb 13.2 L, Hct 40.6 L, MCV 99.1 H, MCH 32.2 H, MCHC 32.5, RDW 13.5, Plt Count 496 H, MPV 7.7, Neut % (Auto) 57.1, Lymph % (Auto) 32.8, [place] % (Auto) 6.4, Eos % (Auto) 2.8, Baso % (Auto) 0.9, Neut # (Auto) 5.0, Lymph # (Auto) 2.9, [place] # (Auto) 0.6, Eos # (Auto) 0.2, Baso # (Auto) 0.1, PT 11.8, INR 1.10, Sodium 142, Potassium 3.3 L, Chloride 107, Carbon Dioxide 28, Anion Gap 10.3, BUN 11, Creatinine 0.80, Estimated Creat Clear 63, Estimated GFR 95, Est GFR ( Amer) 115, Glucose 107 H, Calcium 9.2, Magnesium 1.7, Total Bilirubin 0.4, AST 27, ALT 16, Alkaline Phosphatase 84, Troponin I < 0.01, Total Protein 7.5, Albumin 4.0, Globulin 3.5 H, Albumin/Globulin Ratio 1.1, TSH 2.26 03/23/24 23:50: Urine Color Yellow, Urine Appearance Clear, Urine pH 6.0, Ur Specific [place] 1.020, Urine Protein Negative, Urine Glucose (UA) Negative, Urine Ketones Negative, Urine Blood Negative, Urine Nitrate Negative, Urine Bilirubin Negative, Urine Urobilinogen 0.2, Ur Leukocyte Esterase Negative, Urine WBC 3-5, Ur Squamous Epith Cells 3-5, Calcium Oxalate Crystal 1+, Urine Bacteria 1+ 03/23/24 23:00 03/23/24 23:00 Orders (Tests/Meds): ED MEDICATIONS Discontinued Medications Generic Name Dose Route Start Last Admin Trade Name Freq PRN Reason Stop Dose Admin Lactated Ringer's 1,000 mls @ 999 mls/hr 03/23/24 22:39 03/23/24 23:01 Lactated Ringer's 1000 Ml Bag IV 03/23/24 23:39 999 mls/hr .Q1H1M ONE Administration Ketorolac Tromethamine 15 mg 03/23/24 22:39 03/23/24 23:01 Ketorolac 30mg/Ml Vial IV 03/23/24 22:40 15 mg ONCE ONE Administration Ondansetron HCl 4 mg 03/23/24 22:39 03/23/24 23:01 Ondansetron 4mg/2ml Vial IV 03/23/24 22:40 4 mg ONCE ONE Administration Potassium Chloride 40 meq 03/24/24 00:12 03/24/24 00:20 Potassium Chloride 20meq Tab PO 03/24/24 00:13 40 meq ONCE ONE Administration ORDERS Category Date Time Status Chest XR -- portable [XR chest portable] Stat Exams 03/23/24 22:39 Completed CBC w/Auto Diff [Complete Blood Count Auto Diff] Stat Lab 03/23/24 23:00 Completed CMP [Comprehensive Metabolic Panel] Stat Lab 03/23/24 23:00 Completed INR [Prothrombin Time INR] Stat Lab 03/23/24 23:00 Completed Magnesium Stat Lab 03/23/24 23:00 Completed TSH [Thyroid Stimulating Hormone] Stat Lab 03/23/24 23:00 Completed Trop I [Troponin I] Stat Lab 03/23/24 23:00 Completed Troponin I Q3H Lab 03/24/24 01:45 Ordered Troponin I Q3H Lab 03/24/24 04:45 Ordered UA [Urinalysis and Microscopic] Stat Lab 03/23/24 23:50 Completed Medical Decision Narrative: In summary patient is a 74-year-old male who presents to the emergency department for evaluation of weakness. Patient is hemodynamically stable upon arrival, afebrile. Physical exam is unremarkable and nonfocal including normal breath sounds normal heart sounds no abdominal pain no suprapubic pain.. Differential diagnosis includes ACS versus pneumonia versus gastroenteritis versus urinary tract infection versus iron deficiency anemia etc. Initial workup will be conducted with hematologic labs plain film chest x-ray twelve- lead EKG urinalysis. Initial interventions include lactated ringer bolus, Toradol Tylenol Zofran. Initial workup started and pending at the time of handoff to the oncoming provider at 2300 hrs. <Jesus Esquivel MD - Last Filed: 03/24/24 00:28> Vital Signs: 03/23/24 22:32 Temperature 98 F Temperature Source Oral Pulse Rate [Right Brachial] 82 Respiratory Rate 18 Blood Pressure [Right Arm] 170/93 H Blood Pressure Mean [Right Arm] 118 02 Sat by Pulse Oximetry 99 Oxygen Delivery Method Room Air Lab Data Lab Results 03/23/24 23:00: WBC 8.7, RBC 4.10 L, Hgb 13.2 L, Hct 40.6 L, MCV 99.1 H, MCH 32.2 H, MCHC 32.5, RDW 13.5, Plt Count 496 H, MPV 7.7, Neut % (Auto) 57.1, Lymph % (Auto) 32.8, [place] % (Auto) 6.4, Eos % (Auto) 2.8, Baso % (Auto) 0.9, Neut # (Auto) 5.0, Lymph # (Auto) 2.9, [place] # (Auto) 0.6, Eos # (Auto) 0.2, Baso # (Auto) 0.1, PT 11.8, INR 1.10, Sodium 142, Potassium 3.3 L, Chloride 107, Carbon Dioxide 28, Anion Gap 10.3, BUN 11, Creatinine 0.80, Estimated Creat Clear 63, Estimated GFR 95, Est GFR ( Amer) 115, Glucose 107 H, Calcium 9.2, Magnesium 1.7, Total Bilirubin 0.4, AST 27, ALT 16, Alkaline Phosphatase 84, Troponin I < 0.01, Total Protein 7.5, Albumin 4.0, Globulin 3.5 H, Albumin/Globulin Ratio 1.1, TSH 2.26 03/23/24 23:50: Urine Color Yellow, Urine Appearance Clear, Urine pH 6.0, Ur Specific [place] 1.020, Urine Protein Negative, Urine Glucose (UA) Negative, Urine Ketones Negative, Urine Blood Negative, Urine Nitrate Negative, Urine Bilirubin Negative, Urine Urobilinogen 0.2, Ur Leukocyte Esterase Negative, Urine WBC 3-5, Ur Squamous Epith Cells 3-5, Calcium Oxalate Crystal 1+, Urine Bacteria 1+ Orders (Tests/Meds): ED MEDICATIONS Discontinued Medications Generic Name Dose Route Start Last Admin Trade Name Freq PRN Reason Stop Dose Admin Lactated Ringer's 1,000 mls @ 999 mls/hr 03/23/24 22:39 03/23/24 23:01 Lactated Ringer's 1000 Ml Bag IV 03/23/24 23:39 999 mls/hr .Q1H1M ONE Administration Ketorolac Tromethamine 15 mg 03/23/24 22:39 03/23/24 23:01 Ketorolac 30mg/Ml Vial IV 03/23/24 22:40 15 mg ONCE ONE Administration Ondansetron HCl 4 mg 03/23/24 22:39 03/23/24 23:01 Ondansetron 4mg/2ml Vial IV 03/23/24 22:40 4 mg ONCE ONE Administration Potassium Chloride 40 meq 03/24/24 00:12 03/24/24 00:20 Potassium Chloride 20meq Tab PO 03/24/24 00:13 40 meq ONCE ONE Administration ORDERS Category Date Time Status Chest XR -- portable [XR chest portable] Stat Exams 03/23/24 22:39 Completed CBC w/Auto Diff [Complete Blood Count Auto Diff] Stat Lab 03/23/24 23:00 Completed CMP [Comprehensive Metabolic Panel] Stat Lab 03/23/24 23:00 Completed INR [Prothrombin Time INR] Stat Lab 03/23/24 23:00 Completed Magnesium Stat Lab 03/23/24 23:00 Completed TSH [Thyroid Stimulating Hormone] Stat Lab 03/23/24 23:00 Completed Trop I [Troponin I] Stat Lab 03/23/24 23:00 Completed Troponin I Q3H Lab 03/24/24 01:45 Ordered Troponin I Q3H Lab 03/24/24 04:45 Ordered UA [Urinalysis and Microscopic] Stat Lab 03/23/24 23:50 Completed ECG Data Tracing #1: I reviewed this ECG and interpreted as documented below: Bradycardic with ventricular rate 59, sinus rhythm, no concerning ST or T wave changes, no evidence of arrhythmia. ECG initial impression date: 03/23/24 ECG initial impression time: 23:21 Medical Decision Narrative: In summary patient is a 74-year-old male who presents to the emergency department for evaluation of weakness. Patient is hemodynamically stable upon arrival, afebrile. Physical exam is unremarkable and nonfocal including normal breath sounds normal heart sounds no abdominal pain no suprapubic pain.. Differential diagnosis includes ACS versus pneumonia versus gastroenteritis versus urinary tract infection versus iron deficiency anemia etc. Initial workup will be conducted with hematologic labs plain film chest x-ray twelve- lead EKG urinalysis. Initial interventions include lactated ringer bolus, Toradol Tylenol Zofran. Initial workup started and pending at the time of handoff to the oncoming provider at 2300 hrs. Sierra CROFT: I assumed care of the patient at the time of handoff from the prior provider. On reassessment patient reports that he feels well. On my independent interpretation of labs, patient has minimal hypokalemia, otherwise no significant electrolyte derangement, stable mild anemia, normal TSH, negative single troponin. On my independent interpretation of chest x-ray, no evidence of mass or focal opacity. I had an interactive discussion with patient regarding his presentation. No evidence of acute pathology at this time. He was given a one-time dose of p.o. potassium. He reports he has a PCP follow-up scheduled for later this month. He was discharged in stable condition. I was consulted by the NAVARRO, and we discussed the complexity of the problems being addressed. I approved the treatment and management plan for this patient?s care in the Emergency Department, thus performing a substantive portion of the medical decision making. Jesus Esquivel MD Critical Care <MORGAN Bah - Last Filed: 03/23/24 22:47> Critical Care Time Critical Care Time: No
--- NOTE | 2024-03-23 22:39 | XR_ITS ---
PROCEDURE INFORMATION: Exam: XR Chest Exam date and time: 03/23/2024 10:43 PM Age: 74 years old Clinical indication: Other: Asthenia, vomiting TECHNIQUE: Imaging protocol: Radiologic exam of the chest. Views: 1 view. COMPARISON: CR XR CHEST PORTABLE 08/21/2023 11:47 AM FINDINGS: Lungs: The lungs are hyperinflated. No focal consolidation. Pleural spaces: No pneumothorax or pleural effusion. Heart/Mediastinum: The cardiomediastinal silhouette has normal size and contour. Bones/joints: No displaced fracture. Intraperitoneal space: The visualized abdomen is unremarkable. IMPRESSION: No acute cardiopulmonary disease.
[2024-03-23] MEDS: ONDANSETRON 4MG/2ML VIAL 4 MG IV (23:01)
[2024-03-23] MEDS: KETOROLAC 30MG/ML VIAL 15 MG IV (23:01)
[2024-03-23] MEDS: LACTATED RINGERS 1000ML 1,000 ML 999 ML IV (23:01)
[2024-03-23 23:07] LABS: Basophils # 0.1 K/mm3 (0-0.2); Basophils % 0.9 % (0.1-2.0); Eosinophils # 0.2 K/mm3 (0.0-0.4); Eosinophils % 2.8 % (0.1-12.0); Hematocrit 40.6 % (42.0-52.0); Hemoglobin 13.2 g/dL (14.1-18.0); Lymphocytes # 2.9 K/mm3 (0.7-4.5); Lymphocytes % 32.8 % (10-50); Mean Corpuscular HGB Conc 32.5 g/dL (31.8-35.4); Mean Corpuscular Hemoglobin 32.2 pg (27.0-31.2); Mean Corpuscular Volume 99.1 fl (80-94); Mean Platelet Volume 7.7 fl (7.4-10.4); Monocytes # 0.6 K/mm3 (0.1-1.0); Monocytes % 6.4 % (1.7-9.3); Neutrophils % 57.1 % (37.0-80.0); Platelet Count 496 K/mm3 (142-424); Red Cell Distribution Width 13.5 % (11.5-17.5); White Blood Count 8.7 K/mm3 (4.8-10.8)
[2024-03-23 23:14] LABS: Chloride 107 mmol/L (98-107); Potassium 3.3 mmoL/L (3.5-5.1); Sodium 142 mmol/L (136-145)
--- NOTE | 2024-03-23 23:15 | ECG_ITS ---
APPROVED REPORT Exam: Resting ECG HR:59 bpm ECG Measurements Heart Rate [address] 151 P 60 QRSd 82 QRS 1 QT 430 T 40 QTc 430 Conclusion SINUS BRADYCARDIA WITH OCCASIONAL SUPRAVENTRICULAR PREMATURE COMPLEXES BORDERLINE ECG UNCONFIRMED REPORT Electronically signed by : MELI VALLE, 03/24/2024 02:49:41
[2024-03-23 23:16] LABS: Alanine Aminotransferase 16 U/L (12-78); Aspartate Amino Transferase 27 U/L (17-59); Blood Urea Nitrogen 11 mg/dl (9-20); Creatinine Clearance Estimated 63 mL/min (50-200); Estimated Glomerular Filt Rate 95 ml/min (>60); GFR (African American) 115 ML/MIN (>60)
[2024-03-23 23:17] LABS: Albumin/Globulin Ratio 1.1 (1.1-1.8); Alkaline Phosphatase 84 U/L (38-126); Anion Gap 10.3 mEq/L (5-15); Bilirubin,Total 0.4 mg/dl (0.2-1.3); Calcium 9.2 mg/dl (8.4-10.2); Carbon Dioxide 28 mmol/L (22.0-30.0); Globulin 3.5 g/dL (1.3-3.2); Glucose 107 mg/dl (74-100); Magnesium 1.7 mg/dl (1.6-2.3); Total Protein,Serum 7.5 g/dl (6.3-8.2)
[2024-03-23 23:20] LABS: Prothrombin Time 11.8 seconds (10.1-12.5)
[2024-03-23 23:31] LABS: Troponin I < 0.01 ng/ml (0.00-0.034)
[2024-03-23 23:48] LABS: Thyroid Stimulating Hormone 2.26 uIU/mL (0.465-4.68)
[2024-03-23 23:53] LABS: Microscopic, Urine URINE MICROSCOPIC (MICROSCOPIC)
[2024-03-23 23:56] LABS: Appearance,Urine CLEAR (Clear); Bilirubin,Urine Negative (Negative); Blood, Urine Negative (Negative); Color,Urine YELLOW (Yellow); Glucose,Urine (UA) Negative (Negative); Ketones,Urine Negative (Negative); Leukocyte Esterase,Urine Negative (Negative); Nitrate,Urine Negative (Negative); Protein,Urine Negative (Negative); Urobilinogen,Urine 0.2 EU/dl (0.2)
[2024-03-24 00:13] LABS: Bacteria,Urine 1+ /lpf
[2024-03-24 00:14] LABS: Calcium Oxalate Crystals,Urine 1+ /lpf
[2024-03-24] MEDS: POTASSIUM CHLORIDE 20MEQ TAB 40 MEQ PO (00:20)
[2024-03-24 00:25] VITALS: BP 171/88; PULSE 64; RESP 16; TEMP 36.8; O2SAT 98
== END 2024-03-24 00:27 | disposition home or self-care (01) ==
PROVIDERS: Physician Assistant; Emergency Provider Emergency Medicine; PCP Nurse Practitioner Family
DX: E87.6 Hypokalemia (principal); M62.81 Muscle weakness (generalized); R00.1 Bradycardia, unspecified; I10 Essential (primary) hypertension; K21.9 Gastro-esophageal reflux disease without esophagitis; E78.5 Hyperlipidemia, unspecified
CPT/HCPCS: 71045; 80053; 81001; 83735; 84443; 84484; 85025; 85610; 93005; 96361; 96374; 96375; 99284; J2405; J7120

== ENCOUNTER 2024-03-25 17:07 | Outpatient (CLI) | payer MEDICARE, SELFPAY ==
[2024-03-25 17:17] LABS: Basophils # 0.1 K/mm3 (0-0.2); Basophils % 0.9 % (0.1-2.0); Eosinophils # 0.1 K/mm3 (0.0-0.4); Eosinophils % 1.1 % (0.1-12.0); Hemoglobin 13.3 g/dL (14.1-18.0); Lymphocytes # 2.8 K/mm3 (0.7-4.5); Lymphocytes % 32.5 % (10-50); Mean Corpuscular HGB Conc 31.7 g/dL (31.8-35.4); Mean Corpuscular Volume 101.2 fl (80-94); Mean Platelet Volume 9.6 fl (7.4-10.4); Monocytes # 0.6 K/mm3 (0.1-1.0); Monocytes % 6.4 % (1.7-9.3); Neutrophils % 59.2 % (37.0-80.0); Platelet Count 477 K/mm3 (142-424); Red Blood Count 4.15 M/mm3 (4.60-6.20); Red Cell Distribution Width 13.6 % (11.5-17.5); White Blood Count 8.5 K/mm3 (4.8-10.8)
[2024-03-25 18:20] LABS: Alanine Aminotransferase 14 U/L (12-78); Albumin Level 3.9 g/dl (3.5-5.0); Albumin/Globulin Ratio 1.2 (1.1-1.8); Alkaline Phosphatase 92 U/L (38-126); Anion Gap 13.4 mEq/L (5-15); Aspartate Amino Transferase 25 U/L (17-59); Bilirubin,Total 0.4 mg/dl (0.2-1.3); Blood Urea Nitrogen 8 mg/dl (9-20); Calcium 9.7 mg/dl (8.4-10.2); Carbon Dioxide 31 mmol/L (22.0-30.0); Chloride 103 mmol/L (98-107); Estimated Glomerular Filt Rate 111 ml/min (>60); GFR (African American) 134 ML/MIN (>60); Globulin 3.3 g/dL (1.3-3.2); Glucose 80 mg/dl (74-100); Magnesium 1.8 mg/dl (1.6-2.3); Potassium 4.4 mmoL/L (3.5-5.1); Sodium 143 mmol/L (136-145); Total Protein,Serum 7.2 g/dl (6.3-8.2)
== END 2024-03-25 23:59 | disposition home or self-care (01) ==
LOC: LAB.DROPOF 17:08
PROVIDERS: PCP Nurse Practitioner Family; Visit Provider Nurse Practitioner Family
DX: E87.6 Hypokalemia (principal); M62.81 Muscle weakness (generalized)
CPT/HCPCS: 80053; 83735; 85025

== ENCOUNTER 2024-05-18 13:10 | Emergency (ER) | payer MEDICARE, SELFPAY ==
[2024-05-18 13:12] VITALS: BP 161/82; PULSE 69; RESP 18; TEMP 36.9; O2SAT 98; BMI 21.2
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
--- NOTE | 2024-05-18 15:58 | CT_ITS ---
FINAL REPORT CLINICAL HISTORY: Trauma, back pain FINDINGS: CT THORACIC SPINE TECHNIQUE: Thin section axial CT with sagittal and coronal reconstructions. This study was performed with techniques to keep radiation doses as low as reasonably achievable (ALARA). Individualized dose reduction techniques using automated exposure control or adjustment of mA and/or kV according to the patient's size were employed. FINDINGS: No fracture is present. No bony canal stenosis is seen. There are mild diffuse degenerative disc changes. There is mild anterolisthesis of C7 on T1 which is likely degenerative. Alignment is otherwise normal. The thecal catheter is noted and terminates in the dorsal mid thoracic spine. IMPRESSION: No acute findings in the thoracic spine. Reviewed, Interpreted and Dictated by Tomas Figueroa MD Transcribed by Gavi Ba Authenticated and [facility]
--- NOTE | 2024-05-18 15:58 | CT_ITS ---
FINAL REPORT CLINICAL HISTORY: Trauma, back pain COMPARISON: 01/10/2023 FINDINGS: CT LUMBAR SPINE TECHNIQUE: Thin section axial CT with sagittal and coronal reconstructions. This study was performed with techniques to keep radiation doses as low as reasonably achievable (ALARA). Individualized dose reduction techniques using automated exposure control or adjustment of mA and/or kV according to the patient's size were employed. FINDINGS: There is a moderate superior endplate compression fracture of L1 which has an acute appearance. Remaining vertebral body heights are maintained. There is advanced degenerative disc disease with facet arthropathy. There are postoperative changes to the posterior elements. Alignment is normal. IMPRESSION: Acute, superior endplate compression fracture of L1 without significant retropulsion of bone. Reviewed, Interpreted and Dictated by Tomas Figueroa MD Transcribed by Gavi Ba Authenticated and [facility][1]
--- NOTE | 2024-05-18 16:03 | PC.NURSE ---
pt out of room with Rad for CT
[2024-05-18] MEDS: LIDOCAINE 5% TRANSDERMAL PATCH 1 EACH TP (16:12)
[2024-05-18] MEDS: METHOCARBAMOL 500MG TABLET 500 MG PO (16:13)
--- NOTE | 2024-05-18 16:13 | PC.NURSE ---
pt back in room
[2024-05-18] MEDS: DEXAMETHASONE 4MG/ML 1ML VIAL 10 MG IM (16:23)
[2024-05-18 17:12] LABS: Chloride 102 mmol/L (98-107); Sodium 124 mmol/L (136-145)
[2024-05-18 17:13] LABS: Potassium 3.3 mmoL/L (3.5-5.1)
[2024-05-18 17:15] LABS: Blood Urea Nitrogen 11 mg/dl (9-20); Creatinine Clearance Estimated 60 mL/min (50-200); Estimated Glomerular Filt Rate 132 ml/min (>60); GFR (African American) 160 ML/MIN (>60)
[2024-05-18 17:16] LABS: Anion Gap -4.7 mEq/L (5-15); Basophils # 0.1 K/mm3 (0-0.2); Basophils % 0.4 % (0.1-2.0); Carbon Dioxide 30 mmol/L (22.0-30.0); Eosinophils # 0.1 K/mm3 (0.0-0.4); Eosinophils % 0.6 % (0.1-12.0); Glucose 118 mg/dl (74-100); Hematocrit 39.4 % (42.0-52.0); Hemoglobin 13.4 g/dL (14.1-18.0); Lymphocytes # 1.8 K/mm3 (0.7-4.5); Lymphocytes % 11.7 % (10-50); Mean Corpuscular HGB Conc 34.2 g/dL (31.8-35.4); Mean Corpuscular Hemoglobin 32.8 pg (27.0-31.2); Mean Corpuscular Volume 95.9 fl (80-94); Mean Platelet Volume 8.5 fl (7.4-10.4); Monocytes # 1.1 K/mm3 (0.1-1.0); Neutrophils # 12.5 K/mm3 (1.8-7.8); Neutrophils % 80.2 % (37.0-80.0); Platelet Count 370 K/mm3 (142-424); Red Blood Count 4.11 M/mm3 (4.60-6.20); Red Cell Distribution Width 13.6 % (11.5-17.5); White Blood Count 15.6 K/mm3 (4.8-10.8)
[2024-05-18 17:24] LABS: MANUAL DIFFERENTIAL MANUAL DIFFERENTIAL (MANUAL DIFF)
[2024-05-18 17:29] VITALS: BP 156/78; PULSE 62; RESP 18; TEMP 36.9; O2SAT 98
[2024-05-18 18:06] LABS: Lymphocytes % 8 % (10-50); Monocytes % 7 % (2-9); Neutrophils % 85 % (42-76); Platelet Estimate Normal; RBC Morphology Normal; Total Cells Counted 100
== END 2024-05-18 17:20 | disposition home or self-care (01) ==
PROVIDERS: Physician Assistant; Emergency Provider Student in an Organized Health Care Education/Training Program; PCP Nurse Practitioner Family
DX: S32.010A Wedge compression fracture of first lumbar vertebra, initial encounter for closed fracture (principal); E87.1 Hypo-osmolality and hyponatremia; E87.6 Hypokalemia; I10 Essential (primary) hypertension; K21.9 Gastro-esophageal reflux disease without esophagitis; I65.29 Occlusion and stenosis of unspecified carotid artery; E78.5 Hyperlipidemia, unspecified; Z86.718 Personal history of other venous thrombosis and embolism; Z87.891 Personal history of nicotine dependence; W22.8XXA Striking against or struck by other objects, initial encounter
CPT/HCPCS: 72128; 72131; 80048; 85007; 85025; 85027; 96372; 96374; 99284; J1100

== ENCOUNTER 2024-06-02 11:12 | Day surgery (SDC) | payer MEDICARE, SELFPAY ==
[2024-06-02 11:16] VITALS: BP 148/92; PULSE 100; RESP 16; TEMP 37.1; O2SAT 96; BMI 21.2
[2024-06-02 11:40] VITALS: BP 160/73; PULSE 87; RESP 18; O2SAT 97
--- NOTE | 2024-06-02 11:41 | EXP.PAIN.PRO ---
Procedure Date: 06/02/24 Time: 11:30 Anesthesiologist:: Jorge Han CRNA Complications:: None Pre-procedure Diagnosis:: Degenerative disc lumbar panyp-jjbtp-ctx despair lumbar radiculopathy. Lumbar postlaminectomy syndrome. Post-procedure Diagnosis:: Same. Indications for Procedure:: Patient is a pleasant 74-year-old male who comes our clinic today for intrathecal pain pump interrogation and refill. He is currently being managed with morphine sulfate 1 mg/mL at a rate of 0.1049 mg/day.. He is reporting some low back pain with activity. He is requesting increase in pump rate today. I think this is reasonable. Will increase him by 10%. He rates his pain 6/10. Procedure Details:: Details of the procedure explained to the patient. The patient taken procedure room placed in sitting position. The airway pumps cleansed using chlorhexidine as cleansing solution. The pump was interrogated. The pump was accessed with ease using 22-gauge inch and half needle. 5 mL of solution was withdrawn and discarded appropriately. The pump was then filled with 20 cc solution containing morphine sulfate 1 mg/mL. The rate will be increased by 10%. The new rate will be 0.1153 mg/day. Plan and Disposition:: Patient tolerated procedure without difficulty. There are no complications.
== END 2024-06-02 11:40 | disposition home or self-care (01) ==
PROVIDERS: PCP Nurse Practitioner Family; Visit Provider Nurse Anesthetist, Certified Registered
DX: M51.16 Intervertebral disc disorders with radiculopathy, lumbar region (principal); M96.1 Postlaminectomy syndrome, not elsewhere classified
CPT/HCPCS: 95991

== ENCOUNTER 2024-06-16 13:01 | Outpatient (CLI) | payer MEDICARE, SELFPAY ==
--- NOTE | 2024-06-16 13:07 | XR_ITS ---
FINAL REPORT CLINICAL HISTORY: shoulder pain COMPARISON: None FINDINGS: RIGHT SHOULDER Three views demonstrate no acute fracture or dislocation. The visualized joint spaces are normally aligned. The soft tissues are unremarkable. There is moderate hypertrophic change of the medial clavicular joint. There is a plate and screws in the lower cervical spine consistent with a prior anterior fusion. IMPRESSION: Moderate hypertrophic change of the acromioclavicular joint. Reviewed, Interpreted and Dictated by Abudnio Estrella MD Transcribed by Pamela Gibson Authenticated and [facility]
--- NOTE | 2024-06-16 13:07 | XR_ITS ---
FINAL REPORT CLINICAL HISTORY: shoulder pain COMPARISON: None FINDINGS: LEFT SHOULDER 3 views of the left shoulder were obtained. There is no acute fracture or dislocation. Visualized joint spaces are normally aligned. Soft tissues are unremarkable. Moderate hypertrophic changes present involving the left acromioclavicular joint. Evidence of prior anterior cervical fusion is noted. IMPRESSION: Moderate hypertrophic changes present involving the left acromioclavicular joint. Reviewed, Interpreted and Dictated by Abundio Estrella MD Transcribed by Pamela Gibson Authenticated and [facility]
== END 2024-06-16 23:59 | disposition home or self-care (01) ==
LOC: RAD 13:02
PROVIDERS: PCP Nurse Practitioner Family; Visit Provider Physician Assistant
DX: M25.511 Pain in right shoulder (principal); M25.512 Pain in left shoulder
CPT/HCPCS: 73030

== ENCOUNTER 2024-07-26 12:51 | Emergency (ER) | payer MEDICARE, SELFPAY ==
[2024-07-26] VITALS (13 sets, daily range): BP systolic 106–142; BP diastolic 70–84; PULSE 68–103; RESP 14–18; TEMP 36.6–36.7; O2SAT 95–99; BMI 24.3
[2024-07-26 13:17] LABS: Chloride 101 mmol/L (98-107)
[2024-07-26 13:18] LABS: Albumin Level 3.5 g/dl (3.5-5.0); Sodium 137 mmol/L (136-145)
[2024-07-26 13:20] LABS: Blood Urea Nitrogen 14 mg/dl (9-20); Creatinine Clearance Estimated 69 mL/min (50-200); Estimated Glomerular Filt Rate 111 ml/min (>60); GFR (African American) 134 ML/MIN (>60)
[2024-07-26 13:21] LABS: Alanine Aminotransferase 28 U/L (12-78); Albumin/Globulin Ratio 0.9 (1.1-1.8); Alkaline Phosphatase 107 U/L (38-126); Aspartate Amino Transferase 29 U/L (17-59); Bilirubin,Total 1.2 mg/dl (0.2-1.3); Calcium 9.2 mg/dl (8.4-10.2); Carbon Dioxide 32 mmol/L (22.0-30.0); Globulin 3.9 g/dL (1.3-3.2); Glucose 171 mg/dl (74-100); Total Protein,Serum 7.4 g/dl (6.3-8.2)
[2024-07-26 13:22] LABS: Basophils % 0.2 % (0.1-2.0); Eosinophils # 0.1 K/mm3 (0.0-0.4); Eosinophils % 0.4 % (0.1-12.0); Hematocrit 39.8 % (42.0-52.0); Hemoglobin 12.5 g/dL (14.1-18.0); Lymphocytes # 2.3 K/mm3 (0.7-4.5); Lymphocytes % 15.8 % (10-50); Mean Corpuscular HGB Conc 31.3 g/dL (31.8-35.4); Mean Corpuscular Volume 99.1 fl (80-94); Mean Platelet Volume 7.2 fl (7.4-10.4); Monocytes # 0.4 K/mm3 (0.1-1.0); Monocytes % 3.1 % (1.7-9.3); Neutrophils # 11.4 K/mm3 (1.8-7.8); Neutrophils % 80.4 % (37.0-80.0); Platelet Count 500 K/mm3 (142-424); Red Blood Count 4.01 M/mm3 (4.60-6.20); Red Cell Distribution Width 14.4 % (11.5-17.5); White Blood Count 14.2 K/mm3 (4.8-10.8)
--- NOTE | 2024-07-26 13:26 | HMH.EDGENADL ---
Discharge Plan Disposition Chief Complaint: Weakness Prescriptions Prescriptions: No Action Pro Fe 180 mg iron capsule 180 mg PO DAILY 30 Days Qty: 30 3RF loratadine 10 mg tablet 10 mg PO DAILY PRN (Reason: allergic symptoms) 30 Days Qty: 30 3RF losartan 25 mg tablet 25 mg PO DAILY Qty: 30 2RF ondansetron 4 mg tablet,disintegrating 4 mg PO Q6H PRN (Reason: nausea and vomiting) Qty: 10 0RF morphine (PF) 1 mg/mL Solution 1 mg epidural CONT Rx Instructions: SEE LAST PUMP READING FOR DAILY DOSE. sertraline 25 mg tablet 25 mg PO DAILY methocarbamol 750 mg tablet 750 mg PO Q6H PRN (Reason: Muscle spasm pain) Qty: 20 0RF lidocaine 5 % adhesive patch,medicated 1 patch topical DAILY Qty: 30 0RF Rx Instructions: leave on most painful area for up to 12 hrs Referrals Follow up/Referrals: Senia Espinoza APRN [Primary Care Provider] - See instructions Print Language Print Language: Guamanian Discharge ED Provider: Sanjuanita Li General Adult HPI General Chief complaint: Weakness Stated complaint: body aches, weakness, nausea Time Seen by Provider: 07/26/24 13:26 Mode of Arrival: Wheelchair Source of Information: Patient and Relative Limitations: No Limitations Description of Symptoms (Recalled from ER Triage Doc. by RN): pt c/o myalgia, weakness and decreased appetite x4d. History of Present Illness HPI narrative: Patient is a 74-year-old with past medical history significant for hypertension who presents to the emergency department with 4 days of myalgias generalized weakness and decreased appetite for 4 days. Patient has also had intermittent diarrhea no cough congestion. Tmax of 103 Fahrenheit yesterday responsive to ibuprofen. Stool without blood or black. No nausea or vomiting. No dysuria or increased urinary frequency Related Data Home Medications ?Medication ?Instructions ?Recorded ?Confirmed morphine (PF) 1 mg/mL injection 1 mg epidural CONT Pain 11/07/23 06/16/24 solution sertraline 25 mg tablet 25 mg PO DAILY MOOD 11/07/23 06/16/24 Previous Rx's ?Medication ?Instructions ?Recorded loratadine 10 mg tablet 10 mg PO DAILY PRN allergic 12/24/23 symptoms 30 days #30 tabs polysaccharide iron complex 180 mg 180 mg PO DAILY 30 days #30 caps 01/21/24 iron capsule (Pro Fe) ondansetron 4 mg disintegrating 4 mg PO Q6H PRN nausea and 02/01/24 tablet vomiting #10 tabs losartan 25 mg tablet 25 mg PO DAILY #30 tabs 03/25/24 lidocaine 5 % topical patch 1 patch topical DAILY #30 ea 05/18/24 methocarbamol 750 mg tablet 750 mg PO Q6H PRN Muscle spasm 05/18/24 pain #20 tabs Allergies Allergy/AdvReac Type Severity Reaction Status Date / Time acetaminophen [From PERCOCET] Allergy Severe S-SWELLS-OR Verified 06/16/24 13:53 AL/THROAT oxycodone [From PERCOCET] Allergy Severe S-SWELLS-OR Verified 06/16/24 13:53 AL/THROAT PFSH PFSH Disclaimer: The information contained in this section may have been updated after the patient was seen, as this information can be updated by other users. Medical History Abdominal pain Posture abnormality Diarrhea Lumbar degenerative disc disease Peritonitis Urinary incontinence Bee sting reaction Anxiety Low vitamin B12 level Adjustment disorder Acute sinusitis Acute bronchitis Acute exacerbation of chronic obstructive pulmonary disease Rib injury BPH (benign prostatic hyperplasia) Asthma Hypertension Acute exacerbation of chronic low back pain Bronchitis Exposure to COVID-19 virus Sinusitis Carotid artery stenosis Asthma GERD (gastroesophageal reflux disease) History of DVT (deep vein thrombosis) HLD (hyperlipidemia) HTN (hypertension) Radiculopathy Neck pain Finger laceration Otitis media Pneumonia Lumbar radiculopathy Surgical History S/P exploratory laparotomy Hx of colonoscopy History of colectomy for diveticulitis History of elbow surgery History of surgery on lower extremity History of splenectomy History of back surgery Family History Other No significant family history Social History Smoking Status: Never smoker second hand exposure: No alcohol intake: never substance use type: denies use current occupational status: retired Travel in the last 8 weeks: None housing: house caffeine: Yes ROS Obtained: Yes All systems reviewed & no additional complaints except as documented Physical Exam General General appearance: alert and in no apparent distress Head Head exam: atraumatic and normocephalic Eye Eye exam: Present PERRL; Absent conjunctival redness or conjunctival injection ENT ENT exam: Present normal exam, normal oropharynx and mucous membranes dry Neck Neck exam: Present normal inspection Chest Chest inspection: Present normal inspection Respiratory Respiratory exam: Present normal lung sounds bilaterally; Absent respiratory distress Cardiovascular Cardiovascular exam: Present regular rate and normal rhythm Abdominal Exam Abdominal exam: Present soft; Absent distention, tenderness or guarding Back Exam Back exam: Present normal inspection; Absent tenderness Neurological Exam Neurological exam: Present alert and oriented X3 Skin Skin exam: Present warm and dry Medical Decision Making Medical Records Screening: Per USPSTF and CDC recommendations, given the prevalence of disease in our region, it is our hospital?s policy to screen for HIV and viral Hepatitis for all patients aged 18 and over and those with ongoing risk factors. Siva Inquiry Pt receiving controlled substance: No Vital Signs: 07/26/24 12:58 07/26/24 13:00 07/26/24 13:02 Temperature 98 F Temperature Source Oral Pulse Rate 86 89 Pulse Rate [Left] 87 Pulse Rate [Orthostatic Lying Right] Pulse Rate [Orthostatic Sitting Right] Pulse Rate [Orthostatic Standing Right] Respiratory Rate 14 Blood Pressure 119/72 120/76 Blood Pressure [Orthostatic Lying Right Arm] Blood Pressure [Orthostatic Sitting Right Arm] Blood Pressure [Orthostatic Standing Right Arm] Blood Pressure [Right Arm] 119/72 Blood Pressure Mean Blood Pressure Mean [Right Arm] 87 Blood Pressure Source [Right Arm] Automatic Cuff Blood Pressure Position [Right Arm] Sitting 02 Sat by Pulse Oximetry 99 97 99 Oxygen Delivery Method Room Air Room Air Room Air 07/26/24 13:15 07/26/24 13:35 07/26/24 13:46 Temperature Temperature Source Pulse Rate 79 75 Pulse Rate [Left] Pulse Rate [Orthostatic Lying Right] 77 Pulse Rate [Orthostatic Sitting Right] 80 Pulse Rate [Orthostatic Standing Right] 103 H Respiratory Rate Blood Pressure 118/70 106/79 L Blood Pressure [Orthostatic Lying Right Arm] 106/79 L Blood Pressure [Orthostatic Sitting Right Arm] 133/80 Blood Pressure [Orthostatic Standing Right Arm] 109/71 L Blood Pressure [Right Arm] Blood Pressure Mean Blood Pressure Mean [Right Arm] Blood Pressure Source [Right Arm] Blood Pressure Position [Right Arm] 02 Sat by Pulse Oximetry 98 98 Oxygen Delivery Method Room Air Room Air 07/26/24 13:48 07/26/24 13:49 07/26/24 14:00 Temperature Temperature Source Pulse Rate 102 H 75 Pulse Rate [Left] Pulse Rate [Orthostatic Lying Right] Pulse Rate [Orthostatic Sitting Right] Pulse Rate [Orthostatic Standing Right] Respiratory Rate Blood Pressure 133/80 109/71 L 118/71 Blood Pressure [Orthostatic Lying Right Arm] Blood Pressure [Orthostatic Sitting Right Arm] Blood Pressure [Orthostatic Standing Right Arm] Blood Pressure [Right Arm] Blood Pressure Mean 89 Blood Pressure Mean [Right Arm] Blood Pressure Source [Right Arm] Blood Pressure Position [Right Arm] 02 Sat by Pulse Oximetry 98 98 Oxygen Delivery Method Room Air Room Air Lab Data Lab Results 07/26/24 13:04: WBC 14.2 H, RBC 4.01 L, Hgb 12.5 L, Hct 39.8 L, MCV 99.1 H, MCH 31.0, MCHC 31.3 L, RDW 14.4, Plt Count 500 H, MPV 7.2 L, Neut % (Auto) 80.4 H, Lymph % (Auto) 15.8, Price % (Auto) 3.1, Eos % (Auto) 0.4, Baso % (Auto) 0.2, Neut # (Auto) 11.4 H, Lymph # (Auto) 2.3, Price # (Auto) 0.4, Eos # (Auto) 0.1, Baso # (Auto) 0.0, Sodium 137, Potassium 3.0 L, Chloride 101, Carbon Dioxide 32 H, Anion Gap 7.0, BUN 14, Creatinine 0.70, Estimated Creat Clear 69, Estimated GFR 111, Est GFR ( Amer) 134, Glucose 171 H, Calcium 9.2, Total Bilirubin 1.2, AST 29, ALT 28, Alkaline Phosphatase 107, Total Protein 7.4, Albumin 3.5, Globulin 3.9 H, Albumin/Globulin Ratio 0.9 L, HIV 1&2 Antibody Rapid Nonreactive 07/26/24 13:07: Magnesium 2.0, Lipase 49 07/26/24 13:35: VBG pH 7.40, VBG pCO2 46.8, VBG pO2 32.7, VBG HCO3 28.6, VBG Total CO2 30.0 H, VBG O2 Saturation 60.1, VBG Base Excess 3.2 H, VBG Lactic Acid 2.7 H 07/26/24 13:04 07/26/24 13:04 Orders (Tests/Meds): ED MEDICATIONS Generic Name Dose Route Start Last Admin Trade Name Frewenceslao PRN Reason Stop Dose Admin Sodium Chloride 10 ml 07/26/24 14:14 07/26/24 14:15 Sodium Chloride 0.9% 10ml Syr (Rad Only) IV 08/25/24 14:13 10 ml NEEDED PRN Administration Maintain IV Site Discontinued Medications Generic Name Dose Route Start Last Admin Trade Name Freq PRN Reason Stop Dose Admin Lactated Ringer's 1,000 mls @ 999 mls/hr 07/26/24 13:35 07/26/24 14:04 Lactated Ringer's 1000 Ml Bag IV 07/26/24 14:35 999 mls/hr .Q1H1M ONE Administration Iopamidol 75 ml 07/26/24 14:14 07/26/24 14:15 Iopamidol-370 (76%);100ml Bottle IV 07/26/24 14:15 75 ml ONCE ONE Administration Potassium Chloride 40 meq 07/26/24 15:51 07/26/24 16:10 Potassium Chloride 20meq Tab PO 07/26/24 15:52 40 meq ONCE ONE Administration ORDERS Category Date Time Status CT abdomen pelvis w con Stat Cat Scan 07/26/24 13:35 Completed Chest XR 2 view (NOT portable) [XR chest 2V] Stat Exams 07/26/24 13:35 Completed CMP [Comprehensive Metabolic Panel] Stat Lab 07/26/24 13:04 Completed Complete Blood Count Auto Diff Stat Lab 07/26/24 13:04 Completed HIV (1&2) Antibody Rapid Stat Lab 07/26/24 13:04 Completed Hep C Ab with Reflex to RNA Stat Lab 07/26/24 13:04 Received Lipase Stat Lab 07/26/24 13:07 Completed MAG [Magnesium] Stat Lab 07/26/24 13:07 Completed UA [Urinalysis and Microscopic] Stat Lab 07/26/24 15:36 Received Blood Culture Stat Micro 07/26/24 13:47 Received VBG [Venous Blood Gas] Stat RT 07/26/24 13:35 Completed Medical Decision Narrative: In summary, this 74-year-old male with past medical history significant for hypertension presents to the emergency department today with generalized weakness in the setting of fever diarrhea. On initial evaluation patient is hemodynamically stable saturating appropriately on room air afebrile no acute distress. Differential diagnosis includes but is not limited to diverticulitis viral or bacterial gastroenteritis intra-abdominal abscess viral syndrome urinary tract infection. Based on these concerns, I ordered CBC CMP chest x-ray CT abdomen pelvis with IV contrast lipase magnesium UA blood culture VBG. ECG personally interpreted demonstrates Normal sinus rhythm no acute ST elevation or ST depression Patient received 1 L LR for treatment. Labs personally reviewed demonstrate hypokalemia 3 Leukocytosis hemoglobin 12.5 lactate of 2.7 XR personally interpreted demonstrates no focal consolidation CT imaging personally interpreted demonstrate no intra-abdominal abscess On reassessment patient has improvement of symptoms. Willing to trial p.o. and ambulate. Symptoms most consistent with viral gastroenteritis. At 4 PM transfer of care was given to Dr. Reese pending ability to tolerate p.o. and ambulate and urine. Of note, social determinants of health include lives alone. Critical Care Critical Care Time Critical Care Time: No
--- NOTE | 2024-07-26 13:35 | XR_ITS ---
PROCEDURE INFORMATION: Exam: XR Chest Exam date and time: 07/26/2024 1:59 PM Age: 74 years old Clinical indication: Fever; Additional info: Fever, SOA TECHNIQUE: Imaging protocol: Radiologic exam of the chest. Views: 2 views. Total images: 2 COMPARISON: CR XR CHEST PORTABLE 03/23/2024 10:43 PM FINDINGS: Lungs: Bilateral hyperinflation is present. No focal pneumonia. Pleural spaces: Unremarkable. No pleural effusion. No pneumothorax. Heart/Mediastinum: Hiatal hernia is present. Bones/joints: Postoperative changes lower cervical spine. IMPRESSION: 1. Hiatal hernia is present. 2. Bilateral hyperinflation is present. 3. No focal pneumonia.
--- NOTE | 2024-07-26 13:35 | CT_ITS ---
PROCEDURE INFORMATION: Exam: CT Abdomen And Pelvis With Contrast Exam date and time: 07/26/2024 2:16 PM Age: 74 years old Clinical indication: Abdominal pain; Additional info: Sepsis, generalized abdominal pain TECHNIQUE: Imaging protocol: Computed tomography of the abdomen and pelvis with contrast. Total images: 281 Radiation optimization: All CT scans at this facility use at least one of these dose optimization techniques: automated exposure control; mA and/or kV adjustment per patient size (includes targeted exams where dose is matched to clinical indication); or iterative reconstruction. Contrast material: ISOVUE; Contrast volume: 75 ml; Contrast route: IV; COMPARISON: CT ANGIO ABDOMEN PELVIS 08/21/2023 8:40 AM FINDINGS: Diaphragm: Large hiatal hernia. Liver: Normal. No mass. Gallbladder and biliary ducts: Status post cholecystectomy. Pancreas: Normal. No ductal dilation. Spleen: Normal. No splenomegaly. Adrenal glands: Normal. No mass. Kidneys and ureters: Normal. No hydronephrosis. Stomach and bowel: Mild thickening of the lester of the stomach and duodenal consistent with gastroduodenitis. Postoperative changes of the rectosigmoid colon. Large amount of stool is present throughout the colon. Appendix: No evidence of appendicitis. Intraperitoneal space: Normal. No significant fluid collection. Vasculature: Moderate atherosclerotic disease. Lymph nodes: No mesenteric or retroperitoneal lymphadenopathy. Urinary bladder: Unremarkable as visualized. Reproductive: Unremarkable as visualized. Bones/joints: Postoperative changes of the left hip. Postoperative changes of the left SI joint with screw in place. Compression deformity of L1 is again noted. Posterior fusion noted L4-L5. Soft tissues: Postoperative changes of the anterior abdominal wall. IMPRESSION: 1. Large hiatal hernia. 2. Mild thickening of the lester of the stomach and duodenal consistent with gastroduodenitis. 3. No mesenteric or retroperitoneal lymphadenopathy. 4. Compression deformity of L1 is again noted.
[2024-07-26 13:45] LABS: VBG HCO3 28.6 mmol/L (23-30); VBG PCO2 46.8 mmol/L (35-51); VBG PO2 32.7 mmol/L (28-40)
[2024-07-26 13:46] LABS: Lactate Venous 2.7 mmol/L (0.4-2.0); VBG Base Excess 3.2 mmol/L (-2.4-2.3); VBG Oxygen Saturation 60.1 % (50-70)
[2024-07-26] MEDS: LACTATED RINGERS 1000ML 1,000 ML 999 ML IV (14:04)
[2024-07-26] MEDS: IOPAMIDOL-370 (76%);100ML BOTTLE 75 ML IV (14:15)
[2024-07-26] MEDS: SODIUM CHLORIDE 0.9% 10ML SYR (RAD ONLY) 10 ML IV (14:15)
[2024-07-26 14:21] LABS: Lipase 49 U/L (23-300)
[2024-07-26 14:35] LABS: HIV (1&2) Antibody Rapid NONREACTIVE (NONREACTIVE)
[2024-07-26 15:46] LABS: Microscopic, Urine URINE MICROSCOPIC (MICROSCOPIC)
[2024-07-26] MEDS: POTASSIUM CHLORIDE 20MEQ TAB 40 MEQ PO (16:10)
[2024-07-26 16:15] LABS: Appearance,Urine CLEAR (Clear); Blood, Urine Negative (Negative); Color,Urine YELLOW (Yellow); Glucose,Urine (UA) Negative (Negative); Ketones,Urine Negative (Negative); Leukocyte Esterase,Urine Negative (Negative); Nitrate,Urine Negative (Negative); PH,Urine 6.5 (5.0-8.5); Protein,Urine Negative (Negative); Specific Gravity, Urine 1.015 (1.005-1.030); Urobilinogen,Urine >=8.0 EU/dl (0.2)
[2024-07-26 16:21] LABS: Bilirubin,Urine 1+ (Negative)
[2024-07-26 16:25] LABS: Squamous Epithelial Cell,Urine Occasional #/hpf (0-5)
--- NOTE | 2024-07-26 16:57 | PC.NURSE ---
pt ambulated at his baseline without any help. pt has also tolerated PO challenge without any difficulty.
[2024-07-26 17:46] LABS: Reflex Lactic Add Lactic Reflex
[2024-07-28 07:13] LABS: HCV Ab Non Reactive (Non Reactive)
== END 2024-07-26 17:18 | disposition home or self-care (01) ==
PROVIDERS: Student in an Organized Health Care Education/Training Program; Emergency Provider Emergency Medicine; PCP Nurse Practitioner Family
DX: E86.0 Dehydration (principal); E87.6 Hypokalemia; R74.02 Elevation of levels of lactic acid dehydrogenase [LDH]; R50.9 Fever, unspecified; R19.7 Diarrhea, unspecified; R53.1 Weakness
CPT/HCPCS: 71046; 74177; 80053; 81001; 82803; 83690; 83735; 85025; 86803; 87040; 87389; 96360; 99285; J7120; Q9967

== ENCOUNTER 2024-09-02 18:12 | Observation (INO) | payer MEDICARE, SELFPAY ==
--- NOTE | 2024-09-02 18:14 | ED_ITS ---
Discharge Plan Disposition Patient Disposition: Admitted Condition: Fair Chief Complaint: PAIN Prescriptions Prescriptions: No Action Pro Fe 180 mg iron capsule 180 mg PO DAILY 30 Days Qty: 30 3RF loratadine 10 mg tablet 10 mg PO DAILY PRN (Reason: allergic symptoms) 30 Days Qty: 30 3RF losartan 25 mg tablet 25 mg PO DAILY Qty: 30 2RF ondansetron 4 mg tablet,disintegrating 4 mg PO Q6H PRN (Reason: nausea and vomiting) Qty: 10 0RF ondansetron 4 mg tablet,disintegrating 4 mg PO Q6H PRN (Reason: nausea and vomiting) Qty: 10 0RF morphine (PF) 1 mg/mL Solution 1 mg epidural CONT Rx Instructions: SEE LAST PUMP READING FOR DAILY DOSE. sertraline 25 mg tablet 25 mg PO DAILY methocarbamol 750 mg tablet 750 mg PO Q6H PRN (Reason: Muscle spasm pain) Qty: 20 0RF lidocaine 5 % adhesive patch,medicated 1 patch topical DAILY Qty: 30 0RF Rx Instructions: leave on most painful area for up to 12 hrs Referrals Follow up/Referrals: Senia Espinoza APRN [Primary Care Provider] - See instructions Clinical Impressions Clinical Impression: Debility Print Language Print Language: Kinyarwanda Discharge ED Provider: Avery Montelongo Adult HPI General Chief complaint: PAIN Stated complaint: weak Time Seen by Provider: 09/02/24 18:14 History of Present Illness HPI narrative: Patient is a 74-year-old male with history of chronic pain with a morphine pump, hypertension. He presents today for pain all over . He reports it is in all of his joints. He denies any trauma. Denies any fevers, swelling of the joints. Denies any numbness weakness tingling. Denies any chest pain, but does report some shortness of breath on exertion that has been going on for several months. Endorses orthopnea. No lower extremity edema. He reports that he lives at home with his daughter, and she helps take care of him. He usually gets around with a walker, although recently has had more difficulty getting around. Of note, today on arrival to the ER, he was unable to ambulate on his own. He smells of urine and had a cockroach crawled out of his shirt. Related Data Home Medications ?Medication ?Instructions ?Recorded ?Confirmed morphine (PF) 1 mg/mL injection 1 mg epidural CONT Pain 11/07/23 06/16/24 solution sertraline 25 mg tablet 25 mg PO DAILY MOOD 11/07/23 06/16/24 Previous Rx's ?Medication ?Instructions ?Recorded loratadine 10 mg tablet 10 mg PO DAILY PRN allergic 12/24/23 symptoms 30 days #30 tabs polysaccharide iron complex 180 mg 180 mg PO DAILY 30 days #30 caps 01/21/24 iron capsule (Pro Fe) ondansetron 4 mg disintegrating 4 mg PO Q6H PRN nausea and 02/01/24 tablet vomiting #10 tabs losartan 25 mg tablet 25 mg PO DAILY #30 tabs 03/25/24 lidocaine 5 % topical patch 1 patch topical DAILY #30 ea 05/18/24 methocarbamol 750 mg tablet 750 mg PO Q6H PRN Muscle spasm 05/18/24 pain #20 tabs ondansetron 4 mg disintegrating 4 mg PO Q6H PRN nausea and 07/26/24 tablet vomiting #10 tabs Allergies Allergy/AdvReac Type Severity Reaction Status Date / Time acetaminophen [From PERCOCET] Allergy Severe S-SWELLS-OR Verified 06/16/24 13:53 AL/THROAT oxycodone [From PERCOCET] Allergy Severe S-SWELLS-OR Verified 06/16/24 13:53 AL/THROAT PFSH PFSH Disclaimer: The information contained in this section may have been updated after the patient was seen, as this information can be updated by other users. Medical History Abdominal pain Posture abnormality Diarrhea Lumbar degenerative disc disease Peritonitis Urinary incontinence Bee sting reaction Anxiety Low vitamin B12 level Adjustment disorder Acute sinusitis Acute bronchitis Acute exacerbation of chronic obstructive pulmonary disease Rib injury BPH (benign prostatic hyperplasia) Asthma Hypertension Acute exacerbation of chronic low back pain Bronchitis Exposure to COVID-19 virus Sinusitis Carotid artery stenosis Asthma GERD (gastroesophageal reflux disease) History of DVT (deep vein thrombosis) HLD (hyperlipidemia) HTN (hypertension) Radiculopathy Neck pain Finger laceration Otitis media Pneumonia Lumbar radiculopathy Surgical History S/P exploratory laparotomy Hx of colonoscopy History of colectomy for diveticulitis History of elbow surgery History of surgery on lower extremity History of splenectomy History of back surgery Family History Other No significant family history Social History Smoking Status: Current every day smoker second hand exposure: No alcohol intake: never substance use type: denies use current occupational status: retired Travel in the last 8 weeks: None housing: house caffeine: Yes Other Medical History Have you received the Flu Vaccine for this season: No Have you received the Pneumonia Vaccine: Yes ROS Obtained: Yes All systems reviewed & no additional complaints except as documented Physical Exam General General appearance: alert, in no apparent distress and cachectic Comment: Cachectic Head Head exam: atraumatic and normocephalic Eye Eye exam: Present PERRL and EOMI ENT ENT exam: Present normal oropharynx Neck Neck exam: Present full ROM and trachea midline Chest Chest inspection: Present symmetric chest wall rise Respiratory Respiratory exam: Present normal lung sounds bilaterally; Absent stridor Cardiovascular Cardiovascular exam: Present regular rate and normal rhythm Abdominal Exam Abdominal exam: Present soft; Absent distention or tenderness Extremities Exam Extremities exam: Present full ROM Neurological Exam Neurological exam: Present alert, oriented X3 and CN II-XII intact; Absent motor sensory deficit Psychiatric Psychiatric exam: Present normal mood Skin Skin exam: Present warm and dry Medical Decision Making Medical Records Screening: Per USPSTF and CDC recommendations, given the prevalence of disease in our region, it is our hospital?s policy to screen for HIV and viral Hepatitis for all patients aged 18 and over and those with ongoing risk factors. Siva Inquiry Pt receiving controlled substance: No Vital Signs: 09/02/24 18:50 09/02/24 20:04 09/02/24 20:30 Temperature 98.4 F Temperature Source Oral Pulse Rate 112 H 103 H Pulse Rate [Left Radial] 130 H Respiratory Rate 19 Blood Pressure 134/89 125/75 Blood Pressure [Right Arm] 158/91 H Blood Pressure Mean [Right Arm] 113 02 Sat by Pulse Oximetry 94 L 95 97 Oxygen Delivery Method Room Air Lab Data Lab Results 09/02/24 07:00: Sodium 134 L, Potassium 4.9, Chloride 99, Carbon Dioxide 21 L, A nion Gap 18.9 H, BUN 18, Creatinine 0.60 L, Estimated Creat Clear 62, Estimated GFR 132, Est GFR ( Amer) 160, Glucose 209 H, Calcium 8.9, Phosphorus 3.3, Magnesium 2.1, Total Bilirubin 1.7 H, AST 62 H, ALT 38, Alkaline Phosphatase 72, Troponin I < 0.01, NT-Pro-B Natriuret Pep 334 H, Total Protein 8.9 H, Albumin 3.9, Globulin 5.0 H, Albumin/Globulin Ratio 0.8 L 09/02/24 18:42: WBC 15.4 H, RBC 4.18 L, Hgb 12.8 L, Hct 38.5 L, MCV 92.2, MCH 30.5, MCHC 33.1, RDW 15.4, Plt Count 601 H, MPV 8.1, Neut % (Auto) 89.0 H, Lymph % (Auto) 5.9 L, Charlton % (Auto) 4.3, Eos % (Auto) 0.4, Baso % (Auto) 0.4, Neut # (Auto) 13.7 H, Lymph # (Auto) 0.9, Charlton # (Auto) 0.7, Eos # (Auto) 0.1, Baso # (Auto) 0.1, Total Counted 100, Neutrophils % (Manual) 88 H, Lymphocytes % (Manual) 5 L, Monocytes % (Manual) 7, Platelet Estimate Moderate increase, Hypochromasia 1+ 09/02/24 18:42 09/02/24 07:00 Orders (Tests/Meds): ED MEDICATIONS Discontinued Medications Generic Name Dose Route Start Last Admin Trade Name Freq PRN Reason Stop Dose Admin Acetaminophen 1,000 mg 09/02/24 18:42 09/02/24 19:21 Acetaminophen 500mg Tab PO 09/02/24 18:43 1,000 mg ONCE ONE Administration Sodium Chloride 1,000 mls @ 500 mls/hr 09/02/24 19:15 09/02/24 19:19 Sod Chlor 0.9% 1000ml Bag IV 09/02/24 21:14 500 mls/hr .Q2H MANUELA Administration Ketorolac Tromethamine 15 mg 09/02/24 18:42 09/02/24 19:20 Ketorolac 30mg/Ml Vial IV 09/02/24 18:43 15 mg ONCE ONE Administration ORDERS Category Date Time Status XR chest portable Stat Exams 09/02/24 18:42 Completed Complete Blood Count Auto Diff Stat Lab 09/02/24 18:42 Completed Comprehensive Metabolic Panel Stat Lab 09/02/24 07:00 Completed HIV (1&2) Antibody Rapid Stat Lab 09/02/24 18:36 Received Hep C Ab with Reflex to RNA Stat Lab 09/02/24 18:36 Received Magnesium Stat Lab 09/02/24 07:00 Completed NT Pro Brain Natriuretic Pep. Stat Lab 09/02/24 07:00 Completed Phosphorous Stat Lab 09/02/24 07:00 Completed Prealbumin Stat Lab 09/02/24 19:28 Received Troponin I Q3H Lab 09/02/24 21:45 Ordered Troponin I Q3H Lab 09/03/24 00:45 Ordered Troponin I Stat Lab 09/02/24 07:00 Completed UA/RFX Microscopic Stat Lab 09/02/24 20:47 Ordered Medical Decision Narrative: In summar 74-year-old male y, this 74-year-old male presents to the emergency department today with pain. On initial evaluation patient is afebrile, tachycardic to 120, otherwise stable. He is neurovascularly intact. Appears warm and has full pulses in all extremities, however his capillary refill is greater than 3 seconds and he has dry mucous membranes, given fluid shortage, will attempt to push p.o. fluids, but if unable to will administer IV fluids. I have a high suspicion that he has not had good care at home given his generalized debility. He also reports a weight loss of greater than 25 pounds in the last 2 months. Differential diagnosis includes but is not limited to acute on chronic pain syndrome, ACS, AK, CHF, pneumothorax, debility. Based on these concerns, I ordered CBC CMP magnesium prealbumin troponin BNP chest x-ray. I reviewed prior records including prior ED visits which demonstrate weakness and dehydration, similar to today's presentation, although he was discharged previously.. ECG personally interpreted demonstrates sinus tachycardia with no acute ischemic ST changes. Intervals within normal limits.. Patient received Toradol, Tylenol for treatment. Labs personally reviewed demonstrate no acute electrolyte derangement, troponins negative, BNP negative, low suspicion for ACS or CHF.. I administered 500 cc of normal saline and encourage patient to tolerate p.o. and his tachycardia improved. I had an interactive discussion with hospitalist due to patient's debility and inability to perform activities of daily living and need for safe placement given inability to contact family members here. Ultimately, they agreed to admit the patient to service for further workup and further management patient transferred to their service in hemodynamically stable condition. On reassessment patient reports improvement in his pain after above interventions. Remains neurovascular intact. Resting comfortably. Given patient's cachexia, I am concerned for safety at home and he is unable to ambulate here without significant assistance given he has no not have a safe disposition, will admit to hospitalist. Critical Care Critical Care Time Critical Care Time: No
--- NOTE | 2024-09-02 18:33 | ECG_ITS ---
APPROVED REPORT Exam: Resting ECG HR:126 bpm ECG Measurements Heart Rate 126 AXES [place] 137 P 72 QRSd 73 QRS -11 QT 310 T 66 QTc 385 Conclusion SINUS TACHYCARDIA WITH OCCASIONAL SUPRAVENTRICULAR PREMATURE COMPLEXES MINIMAL ST DEPRESSION [0.025+ mV ST DEPRESSION] ABNORMAL RHYTHM ECG No STEMI Electronically signed by : DAPHNE PAULSON, 09/02/2024 23:32:36
--- NOTE | 2024-09-02 18:42 | XR_ITS ---
PROCEDURE INFORMATION: Exam: XR Chest Exam date and time: 09/02/2024 6:43 PM Age: 74 years old Clinical indication: Shortness of breath; Additional info: SOB TECHNIQUE: Imaging protocol: Radiologic exam of the chest. Views: 1 view. COMPARISON: CR XR CHEST 2V 07/26/2024 1:59 PM FINDINGS: Lungs: Normal. Pleural spaces: Normal. No pleural effusion. No pneumothorax. Heart/Mediastinum: Unchanged hiatal hernia. Vasculature: Tortuous atherosclerotic thoracic aorta. Bones/joints: Osteopenia. Moderate left and severe right acromioclavicular joint degenerative change. Mild thoracic spine degenerative change. IMPRESSION: No acute findings.
[2024-09-02 18:50] VITALS: BP 158/91; PULSE 130; RESP 19; TEMP 36.9; O2SAT 94; BMI 22.0
[2024-09-02 19:00] LABS: Albumin Level 3.9 g/dl (3.5-5.0); Chloride 99 mmol/L (98-107)
[2024-09-02 19:01] LABS: Potassium 4.9 mmoL/L (3.5-5.1); Sodium 134 mmol/L (136-145)
[2024-09-02 19:03] LABS: Basophils # 0.1 K/mm3 (0-0.2); Basophils % 0.4 % (0.1-2.0); Eosinophils # 0.1 K/mm3 (0.0-0.4); Eosinophils % 0.4 % (0.1-12.0); Hematocrit 38.5 % (42.0-52.0); Hemoglobin 12.8 g/dL (14.1-18.0); Lymphocytes # 0.9 K/mm3 (0.7-4.5); Lymphocytes % 5.9 % (10-50); Mean Corpuscular HGB Conc 33.1 g/dL (31.8-35.4); Mean Corpuscular Hemoglobin 30.5 pg (27.0-31.2); Mean Corpuscular Volume 92.2 fl (80-94); Mean Platelet Volume 8.1 fl (7.4-10.4); Monocytes # 0.7 K/mm3 (0.1-1.0); Monocytes % 4.3 % (1.7-9.3); Neutrophils # 13.7 K/mm3 (1.8-7.8); Platelet Count 601 K/mm3 (142-424); Red Blood Count 4.18 M/mm3 (4.60-6.20); Red Cell Distribution Width 15.4 % (11.5-17.5); White Blood Count 15.4 K/mm3 (4.8-10.8)
[2024-09-02 19:03] LABS: Alanine Aminotransferase 38 U/L (12-78); Albumin/Globulin Ratio 0.8 (1.1-1.8); Alkaline Phosphatase 72 U/L (38-126); Anion Gap 18.9 mEq/L (5-15); Aspartate Amino Transferase 62 U/L (17-59); Bilirubin,Total 1.7 mg/dl (0.2-1.3); Blood Urea Nitrogen 18 mg/dl (9-20); Carbon Dioxide 21 mmol/L (22.0-30.0); Creatinine Clearance Estimated 62 mL/min (50-200); Estimated Glomerular Filt Rate 132 ml/min (>60); GFR (African American) 160 ML/MIN (>60); Phosphorous 3.3 mg/dl (2.5-4.5); Total Protein,Serum 8.9 g/dl (6.3-8.2)
[2024-09-02 19:04] LABS: Calcium 8.9 mg/dl (8.4-10.2); Glucose 209 mg/dl (74-100); Magnesium 2.1 mg/dl (1.6-2.3)
[2024-09-02 19:08] LABS: MANUAL DIFFERENTIAL MANUAL DIFFERENTIAL (MANUAL DIFF)
[2024-09-02] MEDS: 0.9 % SODIUM CHLORIDE 1000ML 1,000 ML 500 ML IV (19:19)
[2024-09-02] MEDS: KETOROLAC 30MG/ML VIAL 15 MG IV (19:20)
[2024-09-02] MEDS: ACETAMINOPHEN 500MG TAB 1000 MG PO (19:21)
[2024-09-02 19:25] LABS: Troponin I < 0.01 ng/ml (0.00-0.034)
[2024-09-02 19:42] LABS: NT Pro Brain Natriuretic Pep. 334 pg/mL (0-125)
[2024-09-02 20:04] VITALS: BP 134/89; PULSE 112; O2SAT 95
[2024-09-02 20:14] LABS: Lymphocytes % 5 % (10-50); Monocytes % 7 % (2-9); Neutrophils % 88 % (42-76); Total Cells Counted 100
[2024-09-02 20:15] LABS: Hypochromasia 1+; Platelet Estimate Moderate Increase
[2024-09-02 20:30] VITALS: BP 125/75; PULSE 103; O2SAT 97
[2024-09-02 21:21] LABS: HIV (1&2) Antibody Rapid NONREACTIVE (NONREACTIVE)
[2024-09-02 22:09] VITALS: BP 199/77; PULSE 77; RESP 16; TEMP 36.8; O2SAT 98
--- NOTE | 2024-09-02 22:17 | EXP.HP ---
History of Present Illness *Admission Date: 09/02/24 *Reason for visit:: Self-care deficit unable to ambulate *History of present illness: Mr. Jones, is a very pleasant elderly gentleman with just mild confusion.. .Tells me he is able to live with his daughter but would not been able to contact he he was dropped off by a friend that said he was leaving and going into the mountains to go camping . Mr. Burrell has been given pain medication which apparently has worked. He does have a morphine pump . And plan for ER evaluation needs a walker to get around but is unable to ambulate at this time., Patient does appear to be dehydrated with poor hygiene. I have conferred with the ER physician going over the problems of not been able to get a hold of any family members or friends. Patient cannot be released on his own as he cannot ambulate, patient does appear to be dehydrated has increased WBCs noted mild anemia also has increased hyperglycemia and mild cognitive impairment. Patient has responded better to pain with the Toradol unsure if morphine pump is functioning. Plans to admit to the floor evaluate reason for increased WBCs,, manages pain, have case management and possible outreach and education social worker consult to establish if he is in a safe environment. Since I was really not able to get a clear picture of his home life and no friends or relatives were available. Have personally reviewed his past medical history that is in the chart. Including office visits, following back into his lab work. And evaluated chest x-ray. Noting no fever at this time despite elevated white count but patient has received Toradol that would be covering up any signs of fever.. Urine will be ordered but at this time do not find a source of infection. [facility] Disclaimer: The information contained in this section may have been updated after the patient was seen, as this information can be updated by other users. Medical History Abdominal pain Posture abnormality Diarrhea Lumbar degenerative disc disease Peritonitis Urinary incontinence Bee sting reaction Anxiety Low vitamin B12 level Adjustment disorder Acute sinusitis Acute bronchitis Acute exacerbation of chronic obstructive pulmonary disease Rib injury BPH (benign prostatic hyperplasia) Asthma Hypertension Acute exacerbation of chronic low back pain Bronchitis Exposure to COVID-19 virus Sinusitis Carotid artery stenosis Asthma GERD (gastroesophageal reflux disease) History of DVT (deep vein thrombosis) HLD (hyperlipidemia) HTN (hypertension) Radiculopathy Neck pain Finger laceration Otitis media Pneumonia Lumbar radiculopathy Surgical History S/P exploratory laparotomy Hx of colonoscopy History of colectomy History of elbow surgery History of surgery on lower extremity History of splenectomy History of back surgery Family History Other No significant family history Social History Smoking Status: Current every day smoker second hand exposure: No alcohol intake: never substance use type: denies use current occupational status: retired Travel in the last 8 weeks: None housing: house caffeine: Yes Other Medical History Have you received the Flu Vaccine for this season: No Have you received the Pneumonia Vaccine: Yes Review of Systems Review of Systems Review of systems:: pertinent systems reviewed and negative unless documented below Review of systems (narrative): Patient has mild cognitive impairment., 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 No family members are here to be able to interview Constitutional Constitutional: Reports as per HPI, Reports fatigue and Reports weight loss Comments: Patient is of low body weight Eyes Eyes: Reports as per HPI Comments: Patient kody reported no trouble with his vision ENT Ears, Nose, Mouth, and Throat: Reports as per HPI and Reports neck pain Comments: Patient reported no issues *Cardiovascular Cardiovascular: Reports as per HPI Comments: Patient reported no chest pain or shortness of breath *Respiratory Respiratory: Reports as per HPI Comments: Patient reported he is having no difficulty breathing *Gastrointestinal Gastrointestinal: Reports as per HPI *Genitourinary Genitourinary: Reports as per HPI *Musculoskeletal Musculoskeletal: Reports as per HPI, Reports back pain, Reports myalgias and Reports neck pain Integumentary/Breasts Skin/Breast: Reports as per HPI *Neurologic Neurologic: Reports as per HPI and Reports memory loss Psychiatric Psychiatric: Reports as per HPI and Reports memory loss Endocrine Endocrine: Reports fatigue Comments: Reported that he is tired all the time. Hematologic/Lymphatic Hematologic/Lymphatic: Reports as per HPI Allergic/Immunologic Allergic/Immunologic: Reports as per HPI Meds Home Medications and Allergies Home Medications ?Medication ?Instructions ?Recorded ?Confirmed ?Type morphine (PF) 1 mg/mL injection 1 mg epidural CONT Pain 11/07/23 06/16/24 History solution sertraline 25 mg tablet 25 mg PO DAILY MOOD 11/07/23 06/16/24 History loratadine 10 mg tablet 10 mg PO DAILY PRN allergic 12/24/23 06/16/24 Rx symptoms 30 days #30 tabs polysaccharide iron complex 180 mg 180 mg PO DAILY 30 days #30 caps 01/21/24 06/16/24 Rx iron capsule (Pro Fe) ondansetron 4 mg disintegrating 4 mg PO Q6H PRN nausea and 02/01/24 06/16/24 Rx tablet vomiting #10 tabs losartan 25 mg tablet 25 mg PO DAILY #30 tabs 03/25/24 06/16/24 Rx lidocaine 5 % topical patch 1 patch topical DAILY #30 ea 05/18/24 06/16/24 Rx methocarbamol 750 mg tablet 750 mg PO Q6H PRN Muscle spasm 05/18/24 06/16/24 Rx pain #20 tabs ondansetron 4 mg disintegrating 4 mg PO Q6H PRN nausea and 07/26/24 Rx tablet vomiting #10 tabs New Prescriptions to Start Prescriptions: Allergies Allergy/AdvReac Type Severity Reaction Status Date / Time acetaminophen [From PERCOCET] Allergy Severe S-SWELLS-OR Verified 06/16/24 13:53 AL/THROAT oxycodone [From PERCOCET] Allergy Severe S-SWELLS-OR Verified 06/16/24 13:53 AL/THROAT Exam Data for Last 24 hours Vital signs and Labs for Last 24 Hours: Temp Pulse Resp BP Pulse Ox O2 Del Method 98.2 F 77 16 199/77 H 97 Room Air 09/02/24 22:09 09/02/24 22:09 09/02/24 22:09 09/02/24 22:09 09/02/24 20:30 09/02/24 22:09 Laboratory Results - last 24 hr 09/02/24 07:00: Sodium 134 L, Potassium 4.9, Chloride 99, Carbon Dioxide 21 L, Anion Gap 18.9 H, BUN 18, Creatinine 0.60 L, Estimated Creat Clear 62, Estimated GFR 132, Est GFR ( Amer) 160, Glucose 209 H, Calcium 8.9, Phosphorus 3.3, Magnesium 2.1, Total Bilirubin 1.7 H, AST 62 H, ALT 38, Alkaline Phosphatase 72, Troponin I < 0.01, NT-Pro-B Natriuret Pep 334 H, Total Protein 8.9 H, Albumin 3.9, Globulin 5.0 H, Albumin/Globulin Ratio 0.8 L 09/02/24 18:36: HIV 1&2 Antibody Rapid Nonreactive 09/02/24 18:42: WBC 15.4 H, RBC 4.18 L, Hgb 12.8 L, Hct 38.5 L, MCV 92.2, MCH 30.5, MCHC 33.1, RDW 15.4, Plt Count 601 H, MPV 8.1, Neut % (Auto) 89.0 H, Lymph % (Auto) 5.9 L, [place] % (Auto) 4.3, Eos % (Auto) 0.4, Baso % (Auto) 0.4, Neut # (Auto) 13.7 H, Lymph # (Auto) 0.9, [place] # (Auto) 0.7, Eos # (Auto) 0.1, Baso # (Auto) 0.1, Total Counted 100, Neutrophils % (Manual) 88 H, Lymphocytes % (Manual) 5 L, Monocytes % (Manual) 7, Platelet Estimate Moderate increase, Hypochromasia 1+ I & O for Last 24 hours: Intake & Output 08/30/24 08/31/24 09/01/24 09/02/24 22:59 23:59 23:59 23:59 Weight 65.771 kg Radiology Reports for the Last 24 Hours: Chest x-ray no acute findings, but also noted significant osteopenia, degenerative disc and degenerative joint disease Constitutional Constitutional: mild distress and thin Comments: Appears malnourished. *Routine HEENT Exam Head: Present normocephalic and atraumatic Eye: Present EOMI and PERRL ENT: Present mucous membranes dry and nares patent *Routine Neck Exam Neck: Present supple and full ROM Comments: Thyroid not enlarged Routine Chest/Breast/Axilla Exam Comments: Normal to exam no signs of trauma no signs of pain on deep inspiration and expiration *Routine Respiratory Exam Respiratory: Present decreased breath sounds, diminished air movement, normal respiratory effort, able to speak in complete sentences and symmetric chest movement *Routine Cardiovascular Exam Cardiovascular: Present RRR, Normal S1 and Normal S2 Comments: Noted poor turgor in both lower extremities. The patient appears to be mildly to moderately dehydrated *Routine Abdominal Exam Abdominal: Present soft and surgical scars (Midline umbilical to top of pelvic area) *Routine Rectal Exam Rectal:: deferred *Routine Genitalia Exam Genitalia:: deferred *Routine Extremities Exam Extremities: Present full ROM, pulses intact and normal capillary refill Comments: Poor turgor to extremities Routine Back/Spine/Pelvis Exam Back/Spine: Present paraspinal tenderness Comments: No signs of any trauma from any apparent recent falls *Routine Skin Exam Skin: Present dry and warm Comments: Poor turgor *Routine Neurological Exam Neurological: Present alert, CN II-XII intact, vision grossly intact, hearing grossly intact and normal speech Comments: ,As far as orientation he knows where he is he knows his family but is unable to truly answer questions about how he lives where he lives and if he is able to take care of himself. 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 Routine Psychiatric Exam Psychiatric: Present normal affect and cooperative H&P: Result Impressions 1. Self-care deficit with dehydration, noting no family member around to collaborate any of the stories. 2. Chronic pain with flareup now uncontrolled with Toradol, question self-care deficits and also ambulatory deficits, question early mental decline Imaging and Cardiology Chest x-ray: Additional comments: Lung status relatively normal no signs of infiltrate or signs of infection Assessment and Plan *Assessment and plan (1) Acute dehydration: Status: Acute Category: Medical Code(s): E86.0 - Dehydration (2) Debility: Status: Acute Category: Medical Code(s): R53.81 - Other malaise (3) Elevated WBC count: Status: Acute Category: Medical Code(s): D72.829 - Elevated white blood cell count, unspecified (4) Anemia: Status: Acute Category: Medical Code(s): D64.9 - Anemia, unspecified (5) MCI (mild cognitive impairment): Status: Acute Category: Medical Code(s): G31.84 - Mild cognitive impairment of uncertain or unknown etiology (6) Chronic pain: Status: Acute Category: Medical Code(s): G89.29 - Other chronic pain (7) Generalized weakness: Status: Acute Category: Medical Code(s): R53.1 - Weakness (8) Thrombocytosis: Status: Acute Category: Medical Code(s): D75.839 - Thrombocytosis, unspecified (9) Malnutrition: Status: Acute Category: Medical Code(s): E46 - Unspecified protein-calorie malnutrition (10) Self-care deficit: Status: Acute Category: Medical Code(s): Z78.9 - Other specified health status (11) Impaired ambulation: Status: Acute Category: Medical Code(s): R26.2 - Difficulty in walking, not elsewhere classified (12) Infestation by bed bug: Status: Acute Category: Medical Code(s): B88.8 - Other specified infestations Plan Mr. Jones is a 74-year-old male who presented from home. Found to be disheveled. Too weak to ambulate and go home. No safe disposition from the ER. Also found to have some mild dehydration and unexplained elevated white count. Case discussed with ER, request admission for further management. Medicine agreed to admit. Therapy evaluating. may need placement for further care. Problems addressed as follows: Dehydration Self-care deficit Progressive debility Mild cognitive impairment - debility, MCI, Self care deficit , malnutrition, dehydration, impaired ambulation, Plan : Patient will be admitted to the floor. Will give 1 L of fluid with rally pack.. Will do case management to evaluate the patient's home living condition possible outreach and education social worker consult and may be needing to be placed in a long-term care. Will also start physical therapy occupational therapy for evaluation of needs. - Abnormal labs. Will draw labs including TSH,HGA1C , to check for cause of weakness. Also to get stool to evaluate for any rectal bleeding that may be contributing to mild anemia. Continue to evaluate because of elevated white count. Started on diabetic diet. This is being done because the patient appears to be malnourished. And/or, has underlying infection that I am not able to identify at this time.Urine evaluation has been ordered. Mild hypertension with blood pressure 167/102. Unsure if he is on blood pressure meds at home. Previously on losartan it appears. Will evaluate med rec prior to starting medication Case management consulted to aid in assisting with care, working on placement due to debility and inability to care for self at home. Leukocytosis: Unexplained. Urinalysis pending. Chronic pain: Morphine pump in place. Pain management consulted to evaluate pump. Continue Toradol 15 mg as needed every 6 hours for breakthrough pain Full code Lovenox 40 mg subcu daily Regular diet Patient found to have bedbugs after admission. Decontaminated per protocol Rounded on patient after nurse practitioner. Personally examined and interviewed patient. Agree with exam findings and care plan as documented.
[2024-09-02 23:15] VITALS: BP 154/75; PULSE 75; RESP 10; TEMP 36.7; O2SAT 99; BMI 21.9
[2024-09-02 23:26] LABS: Troponin I < 0.01 ng/ml (0.00-0.034)
[2024-09-02] MEDS: MVI, ADULT NO.1 WITH VIT K 10 ML, THIAMINE HCL 100 MG, MAGNESIUM SULFATE 2 GM in LACTAT... 125 ML IV (23:51)
--- NOTE | 2024-09-03 00:19 | PC.NURSE ---
pt admitted to room 264. Pt bathed and decontaminated upon arrival to room. Was notified by ED in report that pt had cock roaches on him. No bugs were seen during bath. pt is very difficult to understand, and oriented to person and place. Admission to be completed based on pts history, and questions pt is able to answer.
[2024-09-03 01:19] VITALS: O2SAT 99
[2024-09-03 01:23] LABS: Troponin I < 0.01 ng/ml (0.00-0.034)
[2024-09-03 04:00] VITALS: BP 132/70; PULSE 55; RESP 13; TEMP 36.4; O2SAT 98; BMI 21.9
[2024-09-03 04:02] LABS: POC Glucose,Bedside 162 (70-110)
--- NOTE | 2024-09-03 04:51 | PC.NURSE ---
PATIENT BELONGINGS: 1 bag of clothes in blue bag
--- NOTE | 2024-09-03 04:53 | PC.NURSE ---
Pt has rested well this shift. Pt has been turned Q2 hours, and has voiced no complaints. Rally pack infusing @125ml /hr. VSS. Call light in reach, no needs at this time.
[2024-09-03 05:48] LABS: POC Glucose,Bedside 106 (70-110)
[2024-09-03 07:05] LABS: Basophils % 0.3 % (0.1-2.0); Eosinophils # 0.1 K/mm3 (0.0-0.4); Eosinophils % 0.7 % (0.1-12.0); Hematocrit 32.8 % (42.0-52.0); Lymphocytes # 2.4 K/mm3 (0.7-4.5); Mean Corpuscular HGB Conc 32.1 g/dL (31.8-35.4); Mean Corpuscular Hemoglobin 29.9 pg (27.0-31.2); Mean Corpuscular Volume 93.3 fl (80-94); Mean Platelet Volume 8.9 fl (7.4-10.4); Monocytes # 0.8 K/mm3 (0.1-1.0); Monocytes % 6.7 % (1.7-9.3); Neutrophils # 9.1 K/mm3 (1.8-7.8); Neutrophils % 73.1 % (37.0-80.0); Platelet Count 495 K/mm3 (142-424); Red Blood Count 3.51 M/mm3 (4.60-6.20); Red Cell Distribution Width 15.6 % (11.5-17.5); White Blood Count 12.5 K/mm3 (4.8-10.8)
[2024-09-03 07:06] LABS: Alanine Aminotransferase 12 U/L (12-78); Albumin Level 2.7 g/dl (3.5-5.0); Albumin/Globulin Ratio 0.8 (1.1-1.8); Alkaline Phosphatase 81 U/L (38-126); Anion Gap 6.2 mEq/L (5-15); Aspartate Amino Transferase 28 U/L (17-59); Bilirubin,Total 0.9 mg/dl (0.2-1.3); Blood Urea Nitrogen 18 mg/dl (9-20); Calcium 8.1 mg/dl (8.4-10.2); Carbon Dioxide 28 mmol/L (22.0-30.0); Chloride 102 mmol/L (98-107); Creatinine Clearance Estimated 62 mL/min (50-200); Estimated Glomerular Filt Rate 132 ml/min (>60); GFR (African American) 160 ML/MIN (>60); Globulin 3.3 g/dL (1.3-3.2); Glucose 105 mg/dl (74-100); Magnesium 2.6 mg/dl (1.6-2.3); Potassium 3.2 mmoL/L (3.5-5.1); Sodium 133 mmol/L (136-145)
[2024-09-03 07:23] LABS: Hemoglobin 10.5 g/dL (14.1-18.0)
[2024-09-03 07:58] VITALS: BP 167/102; PULSE 81; RESP 16; TEMP 36.7; O2SAT 97
[2024-09-03 08:11] LABS: Thyroid Stimulating Hormone 2.74 uIU/mL (0.465-4.68)
[2024-09-03 08:15] LABS: Ferritin 628 ng/ml (17.9-464)
[2024-09-03 08:40] LABS: Hemoglobin A1C 4.9 % (4.0-6.0)
[2024-09-03] MEDS: ENOXAPARIN 40MG/0.4ML SYRINGE 40 MG SUBCUT (08:43)
[2024-09-03] MEDS: FOLIC ACID 1MG TABLET 1 MG PO (08:43)
--- NOTE | 2024-09-03 09:37 | HMH.OTEV ---
OT Inpatient Evaluation Rehab OT IP Evaluation Start: 09/02/24 22:43 Freq: ONCE Status: Active Protocol: Document 09/03/24 09:26 JUNGMARY (Rec: 09/03/24 09:37 JUNGMARY [id number]) Rehab OT IP Assessment Subjective History Mr. Jones, is a very pleasant elderly gentleman with just mild confusion.. .Tells me he is able to live with his daughter but would not been able to contact he he was dropped off by a friend that said he was leaving and going [place] the mountains to go [place] . Mr. Burrell has been given pain medication which apparently has worked. He does have a morphine pump . And plan for ER evaluation needs a walker to get around but is unable to ambulate at this time., Patient does appear to be dehydrated with poor hygiene. I have conferred with the ER physician going over the problems of not been able to get a hold of any family members or friends. Patient cannot be released on his own as he cannot ambulate, patient does appear to be dehydrated has increased WBCs noted mild anemia also has increased hyperglycemia and mild cognitive impairment. Patient has responded better to pain with the Toradol unsure if morphine pump is functioning. Plans to admit to the floor evaluate reason for increased WBCs,, manages pain, have case management and possible social media senior associate consult to establish if he is in a safe environment. Since I was really not able to get a clear picture of his home life and no friends or relatives were available. Have personally reviewed his past medical history that is in the chart. Including office visits, following back into his lab work. And evaluated chest x- ray. Noting no fever at this time despite elevated white count but patient has received Toradol that would be covering up any signs of fever .. Urine will be ordered but at this time do not find a source of infection. I like to be on the floor and play with the kittens. Patient's provided inaccurate hx of PLOF with ADLs and fx'l mobility tasks. Unaware if patient lives alone or lives with family. Patient was dropped off at ER in filth conditions and covered in cockroaches. Subjective I can sit up. Instructed Patient on safety awareness to complete bed mobility from supine->sit @ EOB requiring SBA. No LOB noted. Instructed Patient on sit->stand and fx'l mobility within the environment with Min A. Unsteadiness on balance . Incontient with bladder mgt tr and unaware. Objective Patient Orientation Name,Birthday Right Upper Extremity Gross ROM WFL Left Upper Extremity Gross ROM WFL Bed Mobility bed mobility - supine/sit Assist Level Supervision/Stand by Transfer Training Sit/Stand/Pivot Transfer Assist Level Minimal x 1 (25% assist) Rehab OT IP prob,goals,plan Problems Date of Evaluation: 09/03/24 OT IP Problems Bed Mobility,Transfers,Balance ,Self care,Safety Rehab Potential Rehab Potential Good Equipment Needs Assistive Devices Rolling / Wheeled Walker Plan OT intervention Plan Bed Mobility,Transfers,Balance ,Self care,Safety,Therapeutic Exercise OT Plan Frequency Daily Duration LOS Discharge Goals Bed Mobility Ability Standby Assistance Sit to Stand Chair Transfer Ability Contact Guard/Hand Hold Chair Transfer Ability Contact Guard/Hand Hold Discharge Plan OT Discharge Plan Recommend placement at this time. Patient's PLOF is unknown at this time and patient is unable to provide accurate hx. Concerns with living conditions at home. Unaware if patient lives alone or lives with family. Patient was dropped off at ER in filth conditions and covered in cockroaches. Eval Complexity Eval Charge Codes 06529 - Low Complexity PHYSICIAN CERTIFICATION: I certify the specified therapy services for Refugio Jones are required, authorized, and reviewed every 30 days.
--- NOTE | 2024-09-03 09:46 | HMH.PTEV ---
Physical Therapy Evaluation Rehab PT IP Evaluation Start: 09/02/24 22:43 Freq: ONCE Status: Active Protocol: Document 09/03/24 09:35 DELIO (Rec: 09/03/24 09:46 DELIO [id number]) Subjective/History History History Per H&P: Mr. Jones, is a very pleasant elderly gentleman with just mild confusion.. . Tells me he is able to live with his daughter but would not been able to contact he he was dropped off by a friend that said he was leaving and going into the mountains to go camping . Mr. Burrell has been given pain medication which apparently has worked. He does have a morphine pump . And plan for ER evaluation needs a walker to get around but is unable to ambulate at this time., Patient does appear to be dehydrated with poor hygiene. I have conferred with the ER physician going over the problems of not been able to get a hold of any family members or friends. Patient cannot be released on his own as he cannot ambulate, patient does appear to be dehydrated has increased WBCs noted mild anemia also has increased hyperglycemia and mild cognitive impairment. Patient has responded better to pain with the Toradol unsure if morphine pump is functioning. Plans to admit to the floor evaluate reason for increased WBCs,, manages pain, have case management and possible marriage and family social worker consult to establish if he is in a safe environment. Since I was really not able to get a clear picture of his home life and no friends or relatives were available. Have personally reviewed his past medical history that is in the chart. Including office visits, following back into his lab work. And evaluated chest x- ray. Noting no fever at this time despite elevated white count but patient has received Toradol that would be covering up any signs of fever .. Urine will be ordered but at this time do not find a source of infection. Subjective Subjective Pt reports he lives with his daughter and son-in-law in a single-story house without any steps. Pt is questionable historian but reports he was IND with all mobility prior to admission. Pt reports his daughter is able to stay and help as needed. New diagnosis of cancer in past 12 No months? Rehab PT IP Eval Objective Appearance Patient Behavior Appropriate,Confused Difficulty following instructions none Speech Pattern Garbled,Mumbled Ambulation Patient Able to Ambulate Yes Ambulation Observation IP General Gait Pattern Observation Shuffling Step Ambulation Distance (feet) 10 Ambulation Assistive Device None Ambulation Ability Minimal x 1 (25% assist) Balance Ability to Arise Able, uses arms to help Sitting Balance Steady, safe Standing Balance Unsteady Dynamic Sitting Balance Ability Good Dynamic Standing Balance Ability Fair Transfers Bed Transfer Ability Supervision/Stand by Sit to Stand Bed Transfer Ability Contact Guard/Hand Hold Rehab PT IP prob,goals,plan Problems Date of Evaluation: 09/03/24 PT IP Problems Bed Mobility,Transfers,Gait, Balance,Self care,Safety Rehab Potential Rehab Potential Good Equipment Needs Assistive Devices Rolling / Wheeled Walker Plan PT Intervention Plan Bed Mobility,Transfers,Gait, Balance,Self care,Safety, Therapeutic Exercise Other Intervention Plan 1-2 times PT Plan Frequency Daily Duration LOS Discharge Goals Bed Transfer Ability Independent Sit to Stand Chair Transfer Ability Supervision/Stand by Ambulation Assistive Device Rolling Walker Ambulation Distance (feet) 15 Discharge Plan PT Discharge Plan Initial physical therapy evaluation performed. Patient presents below baseline at this time in functional mobility, transfers, and strength. Pt not safe to return home at this time d/t current level of functional mobility and suspected home environment based off ER H&P. PT recommending short-term rehabilitation stay upon d/c from [facility]. Pt would benefit from skilled PT while at [facility] to prevent further functional decline and maximize safety with mobility. Eval Complexity Eval Charge Codes 32602 - Moderate Complexity PHYSICIAN CERTIFICATION: I certify the specified therapy services for Refugio Jones are required, authorized, and reviewed every 30 days.
--- NOTE | 2024-09-03 10:18 | SW/DCPLANNER ---
Addendum entered by Mary Barnes 09/08/24 09:24: Attempted to contact patient x3 regarding hospital discharge and home health services. Patient did not answer and does not have a VM set up at this time. Addendum entered by Mary Barnes 09/07/24 09:52: Patient discharged home over the weekend. I have attempted to contact patient this AM regarding home health services: no answer and no voicemail set up. I will continue to contact patient. Addendum entered by Tierney Trujillo RN 09/04/24 16:09: We are awaiting insurance authorization and will be checking on it over the weekend. Patient can discharge when we receive an auth, and I will update the MD when appropriate. Addendum entered by Tierney Trujillo RN 09/04/24 12:48: Spoke with Jaye @ [facility] [place] this morning. She has accepted the patient and plans to come to bedside to do paperwork this afternoon. She stated that she would start the auth with insurance this morning. Patient unfortunately, is likely to be here until Saturday. Original Note: I spoke w/ patient this AM regarding plans once medically stable for discharge. PT/OT evaluated patient and recommended placement at this time. Patient was alert and oriented during our conversation this AM. Patient stated that his daughter (Petra Bradford) lives near him and checks on him often. Patient is not aware of daughters contact information and it is not listed in chart. I did attempt to contact other names listed in patient's chart w/ no answer a this time. Patient is agreeable to placement and does not have a preference as to which facility. I did discuss [facility] in [place] w/ patient and he is agreeable for information to be faxed. I will follow up w/ Jaye at [facility] once information is reviewed. Discharge date is unknown at this time.
--- NOTE | 2024-09-03 11:57 | PC.NURSE ---
MED REC INCOMPLETE-PATIENT UNABLE TO CONFIRM WHAT MEDICATIONS HE TAKES AND CANNOT REACH ANY CONTACTS.
[2024-09-03 13:40] VITALS: BMI 21.9
--- NOTE | 2024-09-03 15:12 | EXP.ACUTE.PN ---
Subjective *Date: 09/03/24 *Time: 15:20 Interval history: Patient stable on room air this morning. Afebrile. No nausea or vomiting. Quite weak. Working with therapy. Denies any chest pain or shortness of breath. Medical Exam Vital signs and Labs for Last 24 Hours: Vital Signs Temp Pulse Pulse Resp BP BP Pulse Ox 09/03/24 14:37 09/03/24 13:00 09/03/24 10:49 09/03/24 09:00 09/03/24 08:00 09/03/24 07:58 98.1 F 81 16 167/102 H 97 09/03/24 05:00 09/03/24 04:00 97.5 F L 55 L 13 132/70 98 09/03/24 02:59 09/03/24 01:19 99 09/03/24 01:00 09/02/24 23:15 98.0 F 75 10 L 154/75 H 99 09/02/24 22:09 98.2 F 77 16 199/77 H 09/02/24 20:30 103 H 125/75 97 09/02/24 20:04 112 H 134/89 95 09/02/24 18:50 98.4 F 130 H 19 158/91 H 94 L O2 Del Method 09/03/24 14:37 Room Air 09/03/24 13:00 Room Air 09/03/24 10:49 Room Air 09/03/24 09:00 Room Air 09/03/24 08:00 Room Air 09/03/24 07:58 Room Air 09/03/24 05:00 Room Air 09/03/24 04:00 Room Air 09/03/24 02:59 Room Air 09/03/24 01:19 Room Air 09/03/24 01:00 Room Air 09/02/24 23:15 Room Air 09/02/24 22:09 Room Air 09/02/24 20:30 09/02/24 20:04 09/02/24 18:50 Room Air Intake and Output 09/02/24 09/03/24 09/03/24 23:59 07:59 15:59 Intake Total 385 / 1345 960 / 1345 Output Total 0 / 0 0 / 0 Balance 0 / 0 385 / 1345 960 / 1345 Intake: Intake, Oral Amount 360 / 360 Intake, Total IV Amount 385 / 985 600 / 985 Mvi, Adult No.1 with Vit K 10 385 / 985 600 / 985 ml Thiamine HCl 100 mg Magnesium Sulfate 2 gm In Lactated Ringers 1000ML 1,000 ml @ 125 mls/hr IV DAILY ONE Rx #:[id number] Output: Output, Urine Amount 0 / 0 0 / 0 Other: Number of Voids 1 Number of Unmeasured Voids 1 1 Number of Urine Attends/Diapers 1 Weight 65.772 kg 65.772 kg 65.7 kg Patient Weight 09/03/24 23:59 Weight 65.7 kg Laboratory Results - last 24 hr 09/02/24 07:00: Sodium 134 L, Potassium 4.9, Chloride 99, Carbon Dioxide 21 L, Anion Gap 18.9 H, BUN 18, Creatinine 0.60 L, Estimated Creat Clear 62, Estimated GFR 132, Est GFR ( Amer) 160, Glucose 209 H, Calcium 8.9, Phosphorus 3.3, Magnesium 2.1, Total Bilirubin 1.7 H, AST 62 H, ALT 38, Alkaline Phosphatase 72, Troponin I < 0.01, NT-Pro-B Natriuret Pep 334 H, Total Protein 8.9 H, Albumin 3.9, Globulin 5.0 H, Albumin/Globulin Ratio 0.8 L 09/02/24 18:36: HIV 1&2 Antibody Rapid Nonreactive 09/02/24 18:42: WBC 15.4 H, RBC 4.18 L, Hgb 12.8 L, Hct 38.5 L, MCV 92.2, MCH 30.5, MCHC 33.1, RDW 15.4, Plt Count 601 H, MPV 8.1, Neut % (Auto) 89.0 H, Lymph % (Auto) 5.9 L, [place] % (Auto) 4.3, Eos % (Auto) 0.4, Baso % (Auto) 0.4, Neut # (Auto) 13.7 H, Lymph # (Auto) 0.9, [place] # (Auto) 0.7, Eos # (Auto) 0.1, Baso # (Auto) 0.1, Total Counted 100, Neutrophils % (Manual) 88 H, Lymphocytes % (Manual) 5 L, Monocytes % (Manual) 7, Platelet Estimate Moderate increase, Hypochromasia 1+ 09/02/24 22:39: Troponin I < 0.01 09/03/24 00:45: Troponin I < 0.01 09/03/24 00:59: POC Glucose 162 H 09/03/24 05:33: WBC 12.5 H, RBC 3.51 L, Hgb 10.5 L D, Hct 32.8 L, MCV 93.3, MCH 29.9, MCHC 32.1, RDW 15.6, Plt Count 495 H, MPV 8.9, Neut % (Auto) 73.1, Lymph % (Auto) 19.0, [place] % (Auto) 6.7, Eos % (Auto) 0.7, Baso % (Auto) 0.3, Neut # (Auto) 9.1 H, Lymph # (Auto) 2.4, [place] # (Auto) 0.8, Eos # (Auto) 0.1, Baso # (Auto) 0.0, Sodium 133 L, Potassium 3.2 L D, Chloride 102, Carbon Dioxide 28, Anion Gap 6.2, BUN 18, Creatinine 0.60 L, Estimated Creat Clear 62, Estimated GFR 132, Est GFR ( Amer) 160, Glucose 105 H D, Hemoglobin A1c 4.9, Calcium 8.1 L, Magnesium 2.6 H D, Ferritin 628 H D, Total Bilirubin 0.9, AST 28 D, ALT 12 D, Alkaline Phosphatase 81, Total Protein 6.0 L D, Albumin 2.7 L D, Globulin 3.3 H, Albumin/Globulin Ratio 0.8 L, TSH 2.74 09/03/24 05:42: POC Glucose 106 I & O for Labs for Last 24 Hours: Intake & Output 08/31/24 09/01/24 09/02/24 09/03/24 23:59 23:59 23:59 23:59 Intake Total 1345 / 1345 Output Total 0 / 0 0 / 0 Balance 0 / 0 1345 / 1345 Weight 65.772 kg 65.7 kg Constitutional: Present no acute distress, average body habitus, disheveled and cooperative Head: Present atraumatic and normocephalic Respiratory: Present normal respiratory effort; Absent accessory muscle use, rhonchi, wheezes or crackles Cardiac: Present Reg Rate and Rhythm GI: Present soft and normal bowel sounds; Absent distention or tenderness Extremities: Present normal inspection and full ROM Skin: Present intact; Absent erythema Neuro: Present Grossly Intact, alert, awake, oriented x 3 and moves all extremities Assessment and Plan *Assessment and plan (1) Acute dehydration: Status: Acute Category: Medical Code(s): E86.0 - Dehydration (2) Debility: Status: Acute Category: Medical Code(s): R53.81 - Other malaise (3) Elevated WBC count: Status: Acute Category: Medical Code(s): D72.829 - Elevated white blood cell count, unspecified (4) Anemia: Status: Acute Category: Medical Code(s): D64.9 - Anemia, unspecified (5) MCI (mild cognitive impairment): Status: Acute Category: Medical Code(s): G31.84 - Mild cognitive impairment of uncertain or unknown etiology (6) Chronic pain: Status: Acute Category: Medical Code(s): G89.29 - Other chronic pain (7) Generalized weakness: Status: Acute Category: Medical Code(s): R53.1 - Weakness (8) Thrombocytosis: Status: Acute Category: Medical Code(s): D75.839 - Thrombocytosis, unspecified (9) Malnutrition: Status: Acute Category: Medical Code(s): E46 - Unspecified protein-calorie malnutrition (10) Self-care deficit: Status: Acute Category: Medical Code(s): Z78.9 - Other specified health status (11) Impaired ambulation: Status: Acute Category: Medical Code(s): R26.2 - Difficulty in walking, not elsewhere classified (12) Infestation by bed bug: Status: Acute Category: Medical Code(s): B88.8 - Other specified infestations Plan Mr. Jones is a 74-year-old male who presented from home. Found to be disheveled. Too weak to ambulate and go home. No safe disposition from the ER. Also found to have some mild dehydration and unexplained elevated white count. Case discussed with ER, request admission for further management. Medicine agreed to admit. Therapy evaluated today, recommend placement for further care. Problems addressed as follows: Dehydration Self-care deficit Progressive debility Mild cognitive impairment - Patient stable on room air. White count still elevated at 12.5, hemoglobin 10.5. Platelets 495. Tolerating p.o. intake. -Repeat CBC, CMP, magnesium ordered for the morning. -Chest x-ray with no acute findings. Mild electrolyte disturbances with potassium 3.2, sodium 133. Kidney function back to normal with BUN 18, creatinine 0.6. -Albumin 2.7, total protein 6. Both are low. -Thyroid function normal with TSH of 2.7; A1c 4.9. No sign of diabetes -Replace electrolytes as needed Mild hypertension with blood pressure 167/102. Unsure if he is on blood pressure meds at home. Previously on losartan it appears. Will initiate low-dose irbesartan and evaluate for response. Irbesartan 37.5 mg daily Case management assisting with care, working on placement due to debility and inability to care for self at home. Leukocytosis: Unexplained. Urinalysis pending. Chronic pain: Morphine pump in place. Pain management consulted to evaluate pump. Appears more comfortable today. Continue Toradol 15 mg as needed every 6 hours for breakthrough pain Full code Lovenox 40 mg subcu daily Regular diet
[2024-09-03 16:17] LABS: POC Glucose,Bedside 123 (70-110)
--- NOTE | 2024-09-03 16:22 | P.PCN_ITS ---
Procedure Date: 09/03/24 Time: 16:15 Anesthesiologist:: Gia Henao APRN Complications:: None Pre-procedure Diagnosis:: Degenerative disc disease of lumbar spine with lumbar radiculopathy symptoms Post-procedure Diagnosis:: Same Indications for Procedure:: Patient is a pleasant 74-year-old male who presents today for consultation on the floor. Today he rates his pain a 0 out of 10. He states overall he really does not have any except he has been having additional soreness and tenderness around his pump site. He states that when he lays on that side or he sits and something bumps it it causes significant pain. He states it has basically been this way from the time he had it put in he denies any other new injuries or trauma. He does state that [place] and that he came in to the hospital and related to worsening pain. Patient does hav e a intrathecal pain pump in place with morphine 1 mg/mL with a daily dose of 0.1153 mg/day. He does state that he would like an increase. He denies any side effects from this medication. His Siva has been reviewed and is appropriate. Physical Exam: General: Alert and oriented x3, no acute distress, pleasant and cooperative Lungs: Respirations even and unlabored, symmetrical chest expansion Eyes: PERRL Musculoskeletal: Flexion and extension of lumbar [spine] somewhat guarded secondary to pain, point tenderness along pump site Neurological: Speech clear, no gross sensory deficit Procedure Details:: Informed consent was obtained and the risk and benefits of the procedure were explained to the patient. Patient was taken to the procedure room where noninvasive monitoring was placed including noninvasive blood pressure cuff and pulse oximeter. Patient's pump was interrogated and was reprogrammed to morphine 0.1269 mg/day. The patient tolerated the procedure well with no complications. Plan and Disposition:: Patient tolerated his intrathecal increase with no complications and was d ischarged neurologically intact. Patient had no problem recalling his upcoming appointment with our office for his intrathecal refill on September 22. Patient shows no signs to our office of concern of confusion or altered mental status. I did discuss with the patient due to the continued tenderness around his pump site that we can do some trigger point injections. Risk and benefits were discussed with the patient and he would like to proceed forward with this plan of care. Patient will be scheduled for trigger point injections around his intrathecal pump of the lumbar paraspinous area. These injections will be done without fluoroscopic guidance or ultrasound. We will plan on doing these injections at the same time of his pump refill if approved by insurance. We will see the patient back in the clinic at the next intrathecal refill. Patient has been instructed to contact the clinic with any concerns before the next appointment. Dr. Gongora has reviewed this note and agrees with this plan of care. This note was dictated using voice recognition software and make contain errors or omissions. -- It Is medically necessary for this patient to continue to have their intrathecal pump refilled at regular intervals. This patient had an intrathecal pain pump implanted after meeting criteria of chronic intractable pain for greater than 3 months and failing conservative treatments. Patient has committed and been compliant to the treatment plan and all planned follow up care. Since implantation of the intrathecal pain pump, the patient has had decreased pain and been more functional. Oral medications have been reduced including intake of oral opioids. Patient continues to do well with intrathecal therapy with decrease in pain symptoms and increase in functional status. Stopping intrathecal medications can lead to life threatening withdrawal, seizures, cardiac arrest, severe pain, and possible . Pumps that are not refilled at regular intervals can be damages and cause and need for replacement. We continually titrate dose and concentration to optimize pain relief and function. We are limited in concentration for certain drugs to safely deliver medications through the pump and stay within the recommendations from the Polyanalges[employer] Consensus Committee Guidelines. Depending on dose and concentration these pumps may need to be refilled sooner than 3 months as we titrate.
[2024-09-03 16:39] VITALS: BP 131/73; PULSE 84; RESP 17; TEMP 36.8; O2SAT 97
--- NOTE | 2024-09-03 17:44 | PC.NURSE ---
PATIENT IS A&OX4, BUT DOES HAVE PERIODS OF SOME CONFUSION AND SPEECH IS DIFFICULT TO UNDERSTAND AT TIMES. PATIENT IS VERY PLEASANT. HAS RESTED IN BED MAJORITY OF SHIFT. HAS WALKED WITH PT AND STAFF WITH WALKER AND X1 ASSIST. TOLERATING VERY WELL. PATIENT HAS AMBULATED TO THE BATHROOM, STOOL AND URINE STILL NEEDED. PT AWARE. PATIENT HAS HAD NO NEEDS OR C/O THUS FAR THIS SHIFT. HAS A GOOD APPETITE. BED SAFETY IN PLACE. VSS.
[2024-09-03 20:00] VITALS: BP 138/65; PULSE 84; RESP 16; TEMP 37.2; O2SAT 96
[2024-09-03] MEDS: PANTOPRAZOLE 40MG TABLET 40 MG PO (20:47)
[2024-09-03 21:44] LABS: POC Glucose,Bedside 122 (70-110)
[2024-09-03] MEDS: METHOCARBAMOL 500MG TABLET 500 MG PO (22:03)
[2024-09-04 03:14] LABS: Microscopic, Urine URINE MICROSCOPIC (MICROSCOPIC)
[2024-09-04 03:15] LABS: Appearance,Urine CLEAR (Clear); Bilirubin,Urine Negative (Negative); Blood, Urine Negative (Negative); Color,Urine YELLOW (Yellow); Glucose,Urine (UA) Negative (Negative); Ketones,Urine Negative (Negative); Leukocyte Esterase,Urine Negative (Negative); Nitrate,Urine Negative (Negative); Protein,Urine Negative (Negative)
[2024-09-04 03:29] LABS: Bacteria,Urine 1+ /lpf; Mucus,Urine 1+ /lpf
[2024-09-04 04:00] VITALS: BP 140/78; PULSE 77; RESP 16; TEMP 36.7; O2SAT 98; BMI 22.1
[2024-09-04 05:12] LABS: HCV Ab Non Reactive (Non Reactive)
[2024-09-04 05:57] LABS: POC Glucose,Bedside 96 (70-110)
[2024-09-04 06:01] LABS: Basophils % 0.5 % (0.1-2.0); Eosinophils # 0.2 K/mm3 (0.0-0.4); Eosinophils % 1.7 % (0.1-12.0); Hematocrit 29.2 % (42.0-52.0); Hemoglobin 9.7 g/dL (14.1-18.0); Lymphocytes # 2.4 K/mm3 (0.7-4.5); Lymphocytes % 26.7 % (10-50); Mean Corpuscular HGB Conc 33.1 g/dL (31.8-35.4); Mean Corpuscular Hemoglobin 30.7 pg (27.0-31.2); Mean Corpuscular Volume 92.7 fl (80-94); Mean Platelet Volume 7.2 fl (7.4-10.4); Monocytes # 0.6 K/mm3 (0.1-1.0); Monocytes % 6.6 % (1.7-9.3); Neutrophils # 5.9 K/mm3 (1.8-7.8); Neutrophils % 64.6 % (37.0-80.0); Platelet Count 509 K/mm3 (142-424); Red Blood Count 3.16 M/mm3 (4.60-6.20); Red Cell Distribution Width 15.6 % (11.5-17.5); White Blood Count 9.1 K/mm3 (4.8-10.8)
[2024-09-04 06:08] LABS: Alanine Aminotransferase 16 U/L (12-78); Albumin Level 2.5 g/dl (3.5-5.0); Albumin/Globulin Ratio 0.8 (1.1-1.8); Alkaline Phosphatase 67 U/L (38-126); Anion Gap 5.3 mEq/L (5-15); Aspartate Amino Transferase 35 U/L (17-59); Bilirubin,Total 0.4 mg/dl (0.2-1.3); Blood Urea Nitrogen 12 mg/dl (9-20); Calcium 7.7 mg/dl (8.4-10.2); Carbon Dioxide 29 mmol/L (22.0-30.0); Chloride 105 mmol/L (98-107); Creatinine Clearance Estimated 63 mL/min (50-200); Estimated Glomerular Filt Rate 132 ml/min (>60); GFR (African American) 160 ML/MIN (>60); Globulin 3.1 g/dL (1.3-3.2); Glucose 89 mg/dl (74-100); Magnesium 1.8 mg/dl (1.6-2.3); Potassium 3.3 mmoL/L (3.5-5.1); Sodium 136 mmol/L (136-145); Total Protein,Serum 5.6 g/dl (6.3-8.2)
--- NOTE | 2024-09-04 06:49 | PC.NURSE ---
06:45 Pt. alert and orientated x 4. Pt. on room air. Awaiting placement before discharge. Pt. awake all night. no complaints.
[2024-09-04 08:00] VITALS: BP 159/75; PULSE 77; RESP 16; TEMP 36.6; O2SAT 98
[2024-09-04 08:24] LABS: Prealbumin 4 mg/dL (9-32)
[2024-09-04] MEDS: IRBESARTAN 75MG TABLET 37.5 MG PO (08:44)
[2024-09-04] MEDS: FOLIC ACID 1MG TABLET 1 MG PO (08:44)
[2024-09-04] MEDS: ENOXAPARIN 40MG/0.4ML SYRINGE 40 MG SUBCUT (08:44)
[2024-09-04] MEDS: MAGNESIUM SULFATE IN WATER 2 GM/50 ML PIGGYBACK IV (09:26)
[2024-09-04] MEDS: POTASSIUM CHLORIDE 20MEQ TAB 40 MEQ PO ×2 (09:26→12:13)
--- NOTE | 2024-09-04 10:52 | HMH.PHAINT1 ---
Pharmacy Intervention Comments: MEDICATION RECONCILIATION COMPLETED ON PATIENT USING EXTERNAL FILL HISTORY FROM PHARMACY AND [facility] REPORT. -MILY TILLMAN, EVAND
[2024-09-04 11:03] LABS: POC Glucose,Bedside 120 (70-110)
[2024-09-04 16:00] VITALS: BP 137/80; PULSE 77; RESP 18; TEMP 36.8; O2SAT 98
--- NOTE | 2024-09-04 16:02 | PC.NURSE ---
Pt is aox 4, up with assistance times one, bed alarm active, 20g R AC SL, fsbg achs, 90's on RA, awaiting placement at [facility].
[2024-09-04 16:03] LABS: POC Glucose,Bedside 99 (70-110)
--- NOTE | 2024-09-04 17:39 | EXP.ACUTE.PN ---
Subjective *Date: 09/04/24 *Time: 17:39 Interval history: No acute events overnight. Comfortable this morning on exam. Denies any chest pain or shortness of breath. Labs stable. Tolerating p.o. intake. Needs placement for rehab Medical Exam Vital signs and Labs for Last 24 Hours: Vital Signs Temp Pulse Resp BP Pulse Ox O2 Del Method 09/04/24 16:01 Room Air 09/04/24 16:00 98.2 F 77 18 137/80 98 Room Air 09/04/24 13:53 Room Air 09/04/24 12:00 Room Air 09/04/24 09:44 Room Air 09/04/24 09:00 Room Air 09/04/24 08:00 Room Air 09/04/24 08:00 97.9 F 77 16 159/75 H 98 Room Air 09/04/24 07:00 Room Air 09/04/24 05:00 Room Air 09/04/24 04:00 98.1 F 77 16 140/78 98 Room Air 09/04/24 03:00 Room Air 09/04/24 01:00 Room Air 09/03/24 23:00 Room Air 09/03/24 21:00 Room Air 09/03/24 20:00 96 Room Air 09/03/24 20:00 98.9 F 84 16 138/65 96 Room Air 09/03/24 18:54 Room Air Intake and Output 09/04/24 09/04/24 09/04/24 07:59 15:59 23:59 Intake Total 240 / 770 530 / 770 Output Total 475 / 475 Balance -235 / 295 530 / 295 Intake: Intake, Oral Amount 240 / 720 480 / 720 Intake, Total IV Amount 50 / 50 Magnesium Sulfate in Water 2 gm 50 / 50 In 50 ml @ 50 mls/hr IV ONCE ONE Rx#:[id number] Output: Output, Urine Amount 475 / 475 Other: Number of Unmeasured Voids 1 Number of Bowel Movements 1 Weight 66.395 kg Patient Weight 09/04/24 23:59 Weight 66.395 kg Laboratory Results - last 24 hr 09/02/24 18:36: Hepatitis C Antibody Non reactive 09/03/24 05:33: Prealbumin 4 L 09/03/24 21:35: POC Glucose 122 H 09/04/24 03:00: Urine Color Yellow, Urine Appearance Clear, Urine pH 7.0, Ur Specific [place] 1.020, Urine Protein Negative, Urine Glucose (UA) Negative, Urine Ketones Negative, Urine Blood Negative, Urine Nitrate Negative, Urine Bilirubin Negative, Urine Urobilinogen 4.0, Ur Leukocyte Esterase Negative, Urine RBC 3-5, Urine WBC 3-5, Ur Squamous Epith Cells 3-5, Urine Bacteria 1+, Urine Mucus 1+ 09/04/24 05:42: POC Glucose 96 09/04/24 05:53: WBC 9.1 D, RBC 3.16 L, Hgb 9.7 L, Hct 29.2 L, MCV 92.7, MCH 30.7, MCHC 33.1, RDW 15.6, Plt Count 509 H, MPV 7.2 L, Neut % (Auto) 64.6, Lymph % (Auto) 26.7, [place] % (Auto) 6.6, Eos % (Auto) 1.7, Baso % (Auto) 0.5, Neut # (Auto) 5.9, Lymph # (Auto) 2.4, [place] # (Auto) 0.6, Eos # (Auto) 0.2, Baso # (Auto) 0.0, Sodium 136, Potassium 3.3 L, Chloride 105, Carbon Dioxide 29, Anion Gap 5.3, BUN 12 D, Creatinine 0.60 L, Estimated Creat Clear 63, Estimated GFR 132, Est GFR ( Amer) 160, Glucose 89, Calcium 7.7 L, Magnesium 1.8 D, Total Bilirubin 0.4, AST 35, ALT 16 D, Alkaline Phosphatase 67, Total Protein 5.6 L, Albumin 2.5 L, Globulin 3.1, Albumin/Globulin Ratio 0.8 L 09/04/24 10:57: POC Glucose 120 H 09/04/24 15:55: POC Glucose 99 I & O for Labs for Last 24 Hours: Intake & Output 09/01/24 09/02/24 09/03/24 09/04/24 23:59 23:59 23:59 23:59 Intake Total 1984 770 / 770 Output Total 0 / 0 0 / 0 475 / 475 Balance 0 / 0 1984 295 / 295 Weight 65.772 kg 65.7 kg 66.395 kg Constitutional: Present no acute distress, average body habitus, disheveled and cooperative Head: Present atraumatic and normocephalic Respiratory: Present normal respiratory effort; Absent accessory muscle use, rhonchi, wheezes or crackles Cardiac: Present Reg Rate and Rhythm GI: Present soft and normal bowel sounds; Absent distention or tenderness Extremities: Present normal inspection and full ROM Skin: Present intact; Absent erythema Neuro: Present Grossly Intact, alert, awake, oriented x 3 and moves all extremities Assessment and Plan *Assessment and plan (1) Acute dehydration: Status: Acute Category: Medical Code(s): E86.0 - Dehydration (2) Debility: Status: Acute Category: Medical Code(s): R53.81 - Other malaise (3) Elevated WBC count: Status: Acute Category: Medical Code(s): D72.829 - Elevated white blood cell count, unspecified (4) Anemia: Status: Acute Category: Medical Code(s): D64.9 - Anemia, unspecified (5) MCI (mild cognitive impairment): Status: Acute Category: Medical Code(s): G31.84 - Mild cognitive impairment of uncertain or unknown etiology (6) Chronic pain: Status: Acute Category: Medical Code(s): G89.29 - Other chronic pain (7) Generalized weakness: Status: Acute Category: Medical Code(s): R53.1 - Weakness (8) Thrombocytosis: Status: Acute Category: Medical Code(s): D75.839 - Thrombocytosis, unspecified (9) Malnutrition: Status: Acute Qualifiers: Malnutrition type: protein-calorie malnutrition Protein-calorie malnutrition severity: severe Qualified Code(s): E43 - Unspecified severe protein-calorie malnutrition Category: Medical Code(s): E46 - Unspecified protein-calorie malnutrition (10) Self-care deficit: Status: Acute Category: Medical Code(s): Z78.9 - Other specified health status (11) Impaired ambulation: Status: Acute Category: Medical Code(s): R26.2 - Difficulty in walking, not elsewhere classified (12) Infestation by bed bug: Status: Acute Category: Medical Code(s): B88.8 - Other specified infestations Plan Mr. Jones is a 74-year-old male who presented from home. Found to be disheveled. Too weak to ambulate and go home. No safe disposition from the ER. Also found to have some mild dehydration and unexplained elevated white count. Case discussed with ER, request admission for further management. Medicine agreed to admit. Therapy working with patient daily. Awaiting placement. Problems addressed as follows: Dehydration Self-care deficit Progressive debility Mild cognitive impairment - Patient stable on room air. White count normalized, 9.1 today. Hemoglobin stable at 9.7. Platelets 509. Tolerating p.o. intake. -Repeat CBC, CMP, magnesium ordered for the morning. -Chest x-ray with no acute findings. Potassium 3.3, magnesium 1.8. Kidney function normal with BUN 12, creatinine 0.6. -Prealbumin 4, severely low. Albumin 2.7, total protein 6. Hypertension: Blood pressure better today, 137/80. Continue Irbesartan 37.5 mg daily Case management assisting with care, working on placement due to debility and inability to care for self at home. Chronic pain: Morphine pump in place. Pain management consulted to evaluate pump. Saw patient yesterday. Increased dosage from pump. Appears comfortable today Full code Lovenox 40 mg subcu daily Regular diet
[2024-09-04 20:00] VITALS: BP 145/70; PULSE 76; RESP 16; TEMP 36.9; O2SAT 98
[2024-09-04] MEDS: METHOCARBAMOL 500MG TABLET 500 MG PO (20:36)
[2024-09-04] MEDS: PANTOPRAZOLE 40MG TABLET 40 MG PO (20:36)
[2024-09-04 21:22] LABS: POC Glucose,Bedside 219 (70-110)
[2024-09-05 04:00] VITALS: BP 119/70; PULSE 72; RESP 16; TEMP 36.6; O2SAT 97; BMI 22.1
[2024-09-05 06:13] LABS: POC Glucose,Bedside 97 (70-110)
[2024-09-05 08:00] VITALS: BP 147/88; PULSE 87; RESP 18; TEMP 36.8; O2SAT 93
[2024-09-05] MEDS: ENOXAPARIN 40MG/0.4ML SYRINGE 40 MG SUBCUT (08:09)
[2024-09-05] MEDS: IRBESARTAN 75MG TABLET 37.5 MG PO (08:09)
[2024-09-05] MEDS: FOLIC ACID 1MG TABLET 1 MG PO (08:09)
[2024-09-05 08:13] LABS: Alanine Aminotransferase 27 U/L (12-78); Albumin Level 2.9 g/dl (3.5-5.0); Albumin/Globulin Ratio 0.9 (1.1-1.8); Alkaline Phosphatase 70 U/L (38-126); Anion Gap 7.5 mEq/L (5-15); Aspartate Amino Transferase 50 U/L (17-59); Bilirubin,Total 0.5 mg/dl (0.2-1.3); Blood Urea Nitrogen 6 mg/dl (9-20); Calcium 8.6 mg/dl (8.4-10.2); Carbon Dioxide 29 mmol/L (22.0-30.0); Chloride 104 mmol/L (98-107); Creatinine Clearance Estimated 63 mL/min (50-200); Estimated Glomerular Filt Rate 132 ml/min (>60); GFR (African American) 160 ML/MIN (>60); Globulin 3.3 g/dL (1.3-3.2); Glucose 89 mg/dl (74-100); Potassium 4.5 mmoL/L (3.5-5.1); Sodium 136 mmol/L (136-145); Total Protein,Serum 6.2 g/dl (6.3-8.2)
[2024-09-05 11:13] LABS: POC Glucose,Bedside 99 (70-110)
--- NOTE | 2024-09-05 15:07 | EXP.ACUTE.PN ---
Subjective *Date: 09/05/24 *Time: 15:07 Interval history: Patient pleasant on exam. Stable on room air. No complaints. Tolerating regular diet. Medical Exam Vital signs and Labs for Last 24 Hours: Vital Signs Temp Pulse Resp BP Pulse Ox O2 Del Method 09/05/24 13:00 Room Air 09/05/24 11:00 Room Air 09/05/24 09:00 Room Air 09/05/24 08:00 98.2 F 87 18 147/88 H 93 L Room Air 09/05/24 08:00 Room Air 09/05/24 06:46 Room Air 09/05/24 05:00 Room Air 09/05/24 04:00 97.9 F 72 16 119/70 97 Room Air 09/05/24 03:00 Room Air 09/05/24 01:00 Room Air 09/04/24 23:00 Room Air 09/04/24 21:00 Room Air 09/04/24 20:00 Room Air 09/04/24 20:00 98.5 F 76 16 145/70 H 98 Room Air 09/04/24 16:01 Room Air 09/04/24 16:00 98.2 F 77 18 137/80 98 Room Air Intake and Output 09/04/24 09/05/24 09/05/24 23:59 07:59 15:59 Intake Total 240 / 1410 600 / 1675 1075 / 1675 Output Total 900 / 1700 800 / 1700 Balance 240 / 935 -300 / -25 275 / -25 Intake: Intake, Oral Amount 240 / 1360 600 / 1675 1075 / 1675 Output: Output, Urine Amount 900 / 1700 800 / 1700 Other: Number of Unmeasured Voids 1 Weight 66.436 kg Patient Weight 09/05/24 23:59 Weight 66.436 kg Laboratory Results - last 24 hr 09/04/24 15:55: POC Glucose 99 09/04/24 21:14: POC Glucose 219 H 09/05/24 06:02: POC Glucose 97 09/05/24 06:50: Sodium 136, Potassium 4.5 D, Chloride 104, Carbon Dioxide 29, Anion Gap 7.5, BUN 6 L D, Creatinine 0.60 L, Estimated Creat Clear 63, Estimated GFR 132, Est GFR ( Amer) 160, Glucose 89, Calcium 8.6, Total Bilirubin 0.5, AST 50 D, ALT 27 D, Alkaline Phosphatase 70, Total Protein 6.2 L, Albumin 2.9 L D, Globulin 3.3 H, Albumin/Globulin Ratio 0.9 L 09/05/24 11:05: POC Glucose 99 I & O for Labs for Last 24 Hours: Intake & Output 09/02/24 09/03/24 09/04/24 09/05/24 23:59 23:59 23:59 23:59 Intake Total 1984 1010 / 1410 1675 / 1675 Output Total 0 / 0 0 / 0 475 / 475 1700 / 1700 Balance 0 / 0 1984 535 / 935 -25 / -25 Weight 65.772 kg 65.7 kg 66.395 kg 66.436 kg Constitutional: Present no acute distress, average body habitus, disheveled and cooperative Head: Present atraumatic and normocephalic Respiratory: Present normal respiratory effort; Absent accessory muscle use, rhonchi, wheezes or crackles Cardiac: Present Reg Rate and Rhythm GI: Present soft and normal bowel sounds; Absent distention or tenderness Extremities: Present normal inspection and full ROM Skin: Present intact; Absent erythema Neuro: Present Grossly Intact, alert, awake, oriented x 3 and moves all extremities Assessment and Plan *Assessment and plan (1) Acute dehydration: Status: Acute Category: Medical Code(s): E86.0 - Dehydration (2) Debility: Status: Acute Category: Medical Code(s): R53.81 - Other malaise (3) Elevated WBC count: Status: Acute Category: Medical Code(s): D72.829 - Elevated white blood cell count, unspecified (4) Anemia: Status: Acute Category: Medical Code(s): D64.9 - Anemia, unspecified (5) MCI (mild cognitive impairment): Status: Acute Category: Medical Code(s): G31.84 - Mild cognitive impairment of uncertain or unknown etiology (6) Chronic pain: Status: Acute Category: Medical Code(s): G89.29 - Other chronic pain (7) Generalized weakness: Status: Acute Category: Medical Code(s): R53.1 - Weakness (8) Thrombocytosis: Status: Acute Category: Medical Code(s): D75.839 - Thrombocytosis, unspecified (9) Malnutrition: Status: Acute Qualifiers: Malnutrition type: protein-calorie malnutrition Protein-calorie malnutrition severity: severe Qualified Code(s): E43 - Unspecified severe protein-calorie malnutrition Category: Medical Code(s): E46 - Unspecified protein-calorie malnutrition (10) Self-care deficit: Status: Acute Category: Medical Code(s): Z78.9 - Other specified health status (11) Impaired ambulation: Status: Acute Category: Medical Code(s): R26.2 - Difficulty in walking, not elsewhere classified (12) Infestation by bed bug: Status: Acute Category: Medical Code(s): B88.8 - Other specified infestations Plan Mr. Jones is a 74-year-old male who presented from home. Found to be disheveled. Too weak to ambulate and go home. No safe disposition from the ER. Also found to have some mild dehydration and unexplained elevated white count. Case discussed with ER, request admission for further management. Medicine agreed to admit. Therapy working with patient daily. Awaiting placement. Problems addressed as follows: Dehydration Self-care deficit Progressive debility Mild cognitive impairment - Patient stable on room air. Tolerating p.o. intake. -Repeat CBC, CMP, magnesium ordered for the morning. -Chest x-ray with no acute findings. Kidney function normal with BUN 6, creatinine 0.6. Albumin low at 2.9. -Prealbumin 4, severely low Hypertension: Blood pressure better today, 147/88. Continue Irbesartan 37.5 mg daily Case management assisting with care, working on placement due to debility and inability to care for self at home. Chronic pain: Morphine pump in place. Pain management consulted to evaluate pump. Saw patient yesterday. Increased dosage from pump. Appears comfortable today Full code Lovenox 40 mg subcu daily Regular diet
[2024-09-05 16:00] VITALS: BP 143/68; PULSE 78; RESP 18; TEMP 36.8; O2SAT 100
[2024-09-05 16:56] LABS: POC Glucose,Bedside 131 (70-110)
--- NOTE | 2024-09-05 17:08 | PC.NURSE ---
pt a&ox4. pt has been up to the chair majority of the day. pt has not complained of pain at all this shift. tolerating RA w/ sats >90%. fsbs 99 @ 1100 and 131 @ 1630. pt does not have insulin ordered. pt ambulated in the room well with standby assistance and the use of a rolling walker. pt has been using the urinal and had adequate output. pt has had a strong appetite and ate the entirety of all meals served, as well as numerous snacks provided in the interim. pt has been pleasant the entire shift. no complaints at this time. call light within reach.
[2024-09-05 19:59] LABS: POC Glucose,Bedside 129 (70-110)
[2024-09-05] MEDS: PANTOPRAZOLE 40MG TABLET 40 MG PO (20:01)
[2024-09-06 04:00] VITALS: BP 149/71; PULSE 81; RESP 16; TEMP 36.8; O2SAT 97; BMI 21.7
--- NOTE | 2024-09-06 05:17 | PC.NURSE ---
Pt A&OX4 and has tolerated room air. Lung sounds clear and bowel sounds active. Pt has had no acute changes this shift. Still awaiting placement. He has had no complaints this shift. Currently asleep with call light within reach.
[2024-09-06 06:10] LABS: POC Glucose,Bedside 134 (70-110)
[2024-09-06] MEDS: KETOROLAC 30MG/ML VIAL 15 MG IV (06:51)
[2024-09-06 07:36] LABS: Basophils # 0.1 K/mm3 (0-0.2); Basophils % 0.8 % (0.1-2.0); Eosinophils # 0.4 K/mm3 (0.0-0.4); Eosinophils % 2.9 % (0.1-12.0); Hematocrit 33.1 % (42.0-52.0); Hemoglobin 10.9 g/dL (14.1-18.0); Lymphocytes # 2.7 K/mm3 (0.7-4.5); Lymphocytes % 21.9 % (10-50); Mean Corpuscular HGB Conc 32.8 g/dL (31.8-35.4); Mean Corpuscular Hemoglobin 30.9 pg (27.0-31.2); Mean Corpuscular Volume 94.2 fl (80-94); Mean Platelet Volume 7.6 fl (7.4-10.4); Monocytes # 0.9 K/mm3 (0.1-1.0); Monocytes % 7.7 % (1.7-9.3); Neutrophils # 8.1 K/mm3 (1.8-7.8); Neutrophils % 66.7 % (37.0-80.0); Platelet Count 638 K/mm3 (142-424); Red Blood Count 3.52 M/mm3 (4.60-6.20); Red Cell Distribution Width 15.5 % (11.5-17.5); White Blood Count 12.2 K/mm3 (4.8-10.8)
[2024-09-06 07:43] LABS: Albumin Level 3.2 g/dl (3.5-5.0); Chloride 101 mmol/L (98-107)
[2024-09-06 07:44] LABS: Potassium 4.1 mmoL/L (3.5-5.1); Sodium 136 mmol/L (136-145)
[2024-09-06 07:46] LABS: Alanine Aminotransferase 30 U/L (12-78); Anion Gap 10.1 mEq/L (5-15); Aspartate Amino Transferase 39 U/L (17-59); Bilirubin,Total 0.5 mg/dl (0.2-1.3); Blood Urea Nitrogen 12 mg/dl (9-20); Carbon Dioxide 29 mmol/L (22.0-30.0); Creatinine Clearance Estimated 61 mL/min (50-200); Estimated Glomerular Filt Rate 111 ml/min (>60); GFR (African American) 134 ML/MIN (>60)
[2024-09-06 07:47] LABS: Albumin/Globulin Ratio 0.9 (1.1-1.8); Alkaline Phosphatase 79 U/L (38-126); Calcium 8.8 mg/dl (8.4-10.2); Globulin 3.7 g/dL (1.3-3.2); Glucose 110 mg/dl (74-100); Total Protein,Serum 6.9 g/dl (6.3-8.2)
[2024-09-06 08:00] VITALS: BP 113/63; PULSE 89; RESP 18; TEMP 37.1; O2SAT 97
[2024-09-06] MEDS: FOLIC ACID 1MG TABLET 1 MG PO (08:00)
[2024-09-06] MEDS: IRBESARTAN 75MG TABLET 37.5 MG PO (08:00)
[2024-09-06] MEDS: ENOXAPARIN 40MG/0.4ML SYRINGE 40 MG SUBCUT (08:00)
[2024-09-06 08:30] LABS: Magnesium 2.1 mg/dl (1.6-2.3)
--- NOTE | 2024-09-06 09:44 | EXP.DC.SUM ---
General Admission date:: 09/02/24 Discharge date: 09/06/24 HPI HPI HPI: Mr. Jones, is a very pleasant elderly gentleman with just mild confusion.. .Tells me he is able to live with his daughter but would not been able to contact he he was dropped off by a friend that said he was leaving and going into the mountains to go camping . Mr. Burrell has been given pain medication which apparently has worked. He does have a morphine pump . And plan for ER evaluation needs a walker to get around but is unable to ambulate at this time., Patient does appear to be dehydrated with poor hygiene. I have conferred with the ER physician going over the problems of not been able to get a hold of any family members or friends. Patient cannot be released on his own as he cannot ambulate, patient does appear to be dehydrated has increased WBCs noted mild anemia also has increased hyperglycemia and mild cognitive impairment. Patient has responded better to pain with the Toradol unsure if morphine pump is functioning. Plans to admit to the floor evaluate reason for increased WBCs,, manages pain, have case management and possible child protective services social worker consult to establish if he is in a safe environment. Since I was really not able to get a clear picture of his home life and no friends or relatives were available. Have personally reviewed his past medical history that is in the chart. Including office visits, following back into his lab work. And evaluated chest x-ray. Noting no fever at this time despite elevated white count but patient has received Toradol that would be covering up any signs of fever.. Urine will be ordered but at this time do not find a source of infection. Hospital Course Hospital Course Hospital Course: Mr. Jones is a 74-year-old male who presented from home. Found to be disheveled. Too weak to ambulate and go home. No safe disposition from the ER. Also found to have some mild dehydration and unexplained elevated white count. Case discussed with ER, request admission for further management. Medicine agreed to admit. Therapy evaluated. Initially patient too weak to ambulate without significant assistance. Recommended placement. Patient was monitored during admission with referral for placement. Was accepted for rehab but ultimately changed his mind on day of discharge. Discharged home with home health for further management at patient request. Ambulating with standby assist on day of discharge. Problems addressed as follows: Dehydration Self-care deficit Progressive debility Mild cognitive impairment - On admission, Mr. Jones exhibited impaired ambulation, administered fluids. Pain management consulted to assist with pain and adjustment of pump. Case management consulted to assist with placement. Therapy evaluated for rehab. Patient overall did well, improved significantly after pump adjustment. Necessitating significant help however, so was referred for rehab. Showed gradual improvement daily. Labs obtained showing severe protein calorie malnutrition with low prealbumin at 4. Nutrition assisted with supplementation. Chest imaging showed no infection. Kidney function improved to normal during admission. Albumin was low at 2.9. Patient remained stable on room air. TSH obtained and normal at 2.7. A1c normal at 4.9. Did better. Discharged home with family and home health. Hypertension: Blood pressure elevated initially while in pain, improved with initiation of blood pressure medication. Continue losartan at discharge. Chronic pain: Morphine pump in place. Pain management consulted to evaluate pump. Saw patient during admission, increased dosage from pump. Appears comfortable since this adjustment. Improved mobility as well. Patient was accepted to rehab. On day of discharge, informed that he had been approved by insurance for rehabilitation. Patient changed his mind and stated he did not want to go to a [place] [facility] facility. Was adamant that he would go home. Therapy worked with him, he was able to get up with minimal assistance and ambulate around the floor using walker well over 100 feet. Stable to discharge home with home health. Total time spent on discharge 32 minutes in counseling, documentation, chart review, and direct care with patient. Exam Data for Last 24 hours Vital signs and Labs for Last 24 Hours: Temp Pulse Resp BP Pulse Ox O2 Del Method 98.7 F 89 18 113/63 97 Room Air 09/06/24 08:00 09/06/24 08:00 09/06/24 08:00 09/06/24 08:00 09/06/24 08:00 09/06/24 09:00 Laboratory Results - last 24 hr 09/05/24 11:05: POC Glucose 99 09/05/24 16:48: POC Glucose 131 H 09/05/24 19:46: POC Glucose 129 H 09/06/24 05:52: POC Glucose 134 H 09/06/24 07:07: WBC 12.2 H D, RBC 3.52 L, Hgb 10.9 L, Hct 33.1 L, MCV 94.2 H, MCH 30.9, MCHC 32.8, RDW 15.5, Plt Count 638 H D, MPV 7.6, Neut % (Auto) 66.7, Lymph % (Auto) 21.9, [place] % (Auto) 7.7, Eos % (Auto) 2.9, Baso % (Auto) 0.8, Neut # (Auto) 8.1 H, Lymph # (Auto) 2.7, [place] # (Auto) 0.9, Eos # (Auto) 0.4, Baso # (Auto) 0.1, Sodium 136, Potassium 4.1, Chloride 101, Carbon Dioxide 29, Anion Gap 10.1, BUN 12 D, Creatinine 0.70, Estimated Creat Clear 61, Estimated GFR 111, Est GFR ( Amer) 134, Glucose 110 H, Calcium 8.8, Magnesium 2.1 D, Total Bilirubin 0.5, AST 39, ALT 30, Alkaline Phosphatase 79, Total Protein 6.9, Albumin 3.2 L D, Globulin 3.7 H, Albumin/Globulin Ratio 0.9 L I & O for Last 24 hours: Intake & Output 09/03/24 09/04/24 09/05/24 09/06/24 23:59 23:59 23:59 23:59 Intake Total 1984 1010 / 1410 2385 / 2835 850 / 850 Output Total 0 / 0 475 / 475 3150 / 3150 700 / 700 Balance 1984 535 / 935 -765 / -315 150 / 150 Weight 65.7 kg 66.395 kg 66.436 kg 64.954 kg Constitutional Constitutional: no acute distress, average body habitus, chronically ill appearing and cooperative *Routine HEENT Exam Head: Present normocephalic Eye: Present EOMI and PERRL ENT: Present mucous membranes moist Comments: edentulous *Routine Neck Exam Neck: Present supple; Absent lymphadenopathy *Routine Respiratory Exam Respiratory: Present CTA bilaterally; Absent rhonchi, wheezes or crackles *Routine Cardiovascular Exam Cardiovascular: Present RRR *Routine Abdominal Exam Abdominal: Present soft and normoactive bowel sounds; Absent tenderness *Routine Rectal Exam Patient deferred: visual exam *Routine Exam Patient deferred: penile exam *Routine Extremities Exam Extremities: Absent cyanosis, clubbing or edema *Routine Skin Exam Skin: Present intact and warm; Absent rash *Routine Neurological Exam Neurological: Present alert, oriented X3 and moving all extremities; Absent altered mental status Results Data Completed and Pending Labs on day of discharge: Labs from last 24 hours 09/06/24 09/06/24 09/05/24 07:07 05:52 19:46 WBC 12.2 H D RBC 3.52 L Hgb 10.9 L Hct 33.1 L MCV 94.2 H MCH 30.9 MCHC 32.8 RDW 15.5 Plt Count 638 H D MPV 7.6 Neut % (Auto) 66.7 Lymph % (Auto) 21.9 [place] % (Auto) 7.7 Eos % (Auto) 2.9 Baso % (Auto) 0.8 Neut # (Auto) 8.1 H Lymph # (Auto) 2.7 [place] # (Auto) 0.9 Eos # (Auto) 0.4 Baso # (Auto) 0.1 Sodium 136 Potassium 4.1 Chloride 101 Carbon Dioxide 29 Anion Gap 10.1 BUN 12 D Creatinine 0.70 Estimated Creat Clear 61 Estimated GFR 111 Est GFR ( Amer) 134 Glucose 110 H POC Glucose 134 H 129 H Calcium 8.8 Magnesium 2.1 D Total Bilirubin 0.5 AST 39 ALT 30 Alkaline Phosphatase 79 Total Protein 6.9 Albumin 3.2 L D Globulin 3.7 H Albumin/Globulin Ratio 0.9 L 09/05/24 09/05/24 16:48 11:05 WBC RBC Hgb Hct MCV MCH MCHC RDW Plt Count MPV Neut % (Auto) Lymph % (Auto) [place] % (Auto) Eos % (Auto) Baso % (Auto) Neut # (Auto) Lymph # (Auto) [place] # (Auto) Eos # (Auto) Baso # (Auto) Sodium Potassium Chloride Carbon Dioxide Anion Gap BUN Creatinine Estimated Creat Clear Estimated GFR Est GFR ( Amer) Glucose POC Glucose 131 H 99 Calcium Magnesium Total Bilirubin AST ALT Alkaline Phosphatase Total Protein Albumin Globulin Albumin/Globulin Ratio DS: Diagnosis Discharge Diagnosis (1) Acute dehydration: Status: Acute Code(s): E86.0 - Dehydration (2) Debility: Status: Acute Code(s): R53.81 - Other malaise (3) Elevated WBC count: Status: Acute Code(s): D72.829 - Elevated white blood cell count, unspecified (4) Anemia: Status: Acute Code(s): D64.9 - Anemia, unspecified (5) MCI (mild cognitive impairment): Status: Acute Code(s): G31.84 - Mild cognitive impairment of uncertain or unknown etiology (6) Chronic pain: Status: Acute Code(s): G89.29 - Other chronic pain (7) Generalized weakness: Status: Acute Code(s): R53.1 - Weakness (8) Thrombocytosis: Status: Acute Code(s): D75.839 - Thrombocytosis, unspecified (9) Malnutrition: Status: Acute Code(s): E46 - Unspecified protein-calorie malnutrition Qualifiers: Malnutrition type: protein-calorie malnutrition Protein-calorie malnutrition severity: severe Qualified Code(s): E43 - Unspecified severe protein-calorie malnutrition (10) Self-care deficit: Status: Acute Code(s): Z78.9 - Other specified health status (11) Impaired ambulation: Status: Acute Code(s): R26.2 - Difficulty in walking, not elsewhere classified (12) Infestation by bed bug: Status: Acute Code(s): B88.8 - Other specified infestations Meds Home Medications and Allergies Home Medications ?Medication ?Instructions ?Recorded ?Confirmed ?Type morphine (PF) 1 mg/mL injection 1 mg epidural CONT 11/07/23 09/04/24 History solution ondansetron 4 mg disintegrating 4 mg PO Q6H PRN nausea and 07/26/24 09/04/24 Rx tablet vomiting #10 tabs losartan 25 mg tablet 25 mg PO DAILY 09/04/24 09/04/24 History sertraline 25 mg tablet 25 mg PO DAILY 09/04/24 09/04/24 History New Prescriptions to Start Prescriptions: Allergies Allergy/AdvReac Type Severity Reaction Status Date / Time acetaminophen [From PERCOCET] Allergy Severe S-SWELLS-OR Verified 06/16/24 13:53 AL/THROAT oxycodone [From PERCOCET] Allergy Severe S-SWELLS-OR Verified 06/16/24 13:53 AL/THROAT Discharge Plan Disposition Patient Disposition: Home Health Service Condition: Fair Discharge Order Discharge Orders: Discharge Order (Routine); Ordered 09/06/24 Ordered By: George Noe Follow up Plan Follow up with: Alejandro Gongora MD [Staff Physician] - Enter time for follow up (please call for appointment) Senia Espinoza APRN [Primary Care Provider] - Enter time for follow up (please call for appointment) Prescriptions/Medication Reconciliation: Continued ondansetron 4 mg tablet,disintegrating 4 mg PO Q6H PRN (Reason: nausea and vomiting) Qty: 10 0RF losartan 25 mg Tablet 25 mg PO DAILY sertraline 25 mg Tablet 25 mg PO DAILY morphine (PF) 1 mg/mL Solution 1 mg epidural CONT Problem Reconciliation Problems Reviewed?: Yes Patient Discharge Instructions ACTIVITY: Continue current activity and Ambulate as tolerated DIET: continue same diet Patient Instructions: DI for Muscle Weakness Print Language: Belarusian Providers Primary Care Provider: Senia Espinoza Admit Provider: George Noe Attending Provider: George Noe
[2024-09-06 11:46] LABS: POC Glucose,Bedside 136 (70-110)
--- NOTE | 2024-09-09 12:22 | HMH.PROCNOTE ---
[facility] Procedure Note Date: 09/03/24 Time: 16:22 Procedure Note:: Patient is a pleasant 74-year-old male who presents today for consultation on the floor. Today he rates his pain a 0 out of 10. He states overall he really does not have any except he has been having additional soreness and tenderness around his pump site. He states that when he lays on that side or he sits and something bumps it it causes significant pain. He states it has basically been this way from the time he had it put in he denies any other new injuries or trauma. He does state that he and another friend had gone to the mountains and that he came in to the hospital and related to worsening pain. Patient does have a intrathecal pain pump in place with morphine 1 mg/mL with a daily dose of 0.1153 mg/day. He does state that he would like an increase. He denies any side effects from this medication. His Siva has been reviewed and is appropriate. Physical Exam: General: Alert and oriented x3, no acute distress, pleasant and cooperative Lungs: Respirations even and unlabored, symmetrical chest expansion Eyes: PERRL Musculoskeletal: Flexion and extension of lumbar [spine] somewhat guarded secondary to pain, point tenderness along pump site Neurological: Speech clear, no gross sensory deficit Patient tolerated his intrathecal increase with no complications and was discharged neurologically intact. Patient had no problem recalling his upcoming appointment with our office for his intrathecal refill on September 22. Patient shows no signs to our office of concern of confusion or altered mental status. I did discuss with the patient due to the continued tenderness around his pump site that we can do some trigger point injections. Risk and benefits were discussed with the patient and he would like to proceed forward with this plan of care. Patient will be scheduled for trigger point injections around his intrathecal pump of the lumbar paraspinous area. These injections will be done without fluoroscopic guidance or ultrasound. We will plan on doing these injections at the same time of his pump refill if approved by insurance. We will see the patient back in the clinic at the next intrathecal refill. Patient has been instructed to contact the clinic with any concerns before the next appointment. Dr. Gongora has reviewed this note and agrees with this plan of care. This note was dictated using voice recognition software and make contain errors or omissions. -- It Is medically necessary for this patient to continue to have their intrathecal pump refilled at regular intervals. This patient had an intrathecal pain pump implanted after meeting criteria of chronic intractable pain for greater than 3 months and failing conservative treatments. Patient has committed and been compliant to the treatment plan and all planned follow up care. Since implantation of the intrathecal pain pump, the patient has had decreased pain and been more functional. Oral medications have been reduced including intake of oral opioids. Patient continues to do well with intrathecal therapy with decrease in pain symptoms and increase in functional status. Stopping intrathecal medications can lead to life threatening withdrawal, seizures, cardiac arrest, severe pain, and possible . Pumps that are not refilled at regular intervals can be damages and cause and need for replacement. We continually titrate dose and concentration to optimize pain relief and function. We are limited in concentration for certain drugs to safely deliver medications through the pump and stay within the recommendations from the Polyanalges[employer] Consensus Committee Guidelines. Depending on dose and concentration these pumps may need to be refilled sooner than 3 months as we titrate.
== END 2024-09-06 12:08 | disposition home health service (06) ==
LOC: ER 21:23 → ICU 22:24 → 2ND 09-03 12:42
PROVIDERS: Nurse Practitioner Family; Admitting Provider Internal Medicine Adolescent Medicine; Emergency Provider Emergency Medicine; PCP Nurse Practitioner Family; Visit Provider Internal Medicine Adolescent Medicine
DX: E86.0 Dehydration (principal); R53.81 Other malaise; D72.829 Elevated white blood cell count, unspecified; D64.9 Anemia, unspecified; G31.84 Mild cognitive impairment of uncertain or unknown etiology; G89.29 Other chronic pain; R53.1 Weakness; D75.839 Thrombocytosis, unspecified; Z73.89 Other problems related to life management difficulty; R26.2 Difficulty in walking, not elsewhere classified; E43 Unspecified severe protein-calorie malnutrition; Z68.21 Body mass index [BMI] 21.0-21.9, adult; Z79.899 Other long term (current) drug therapy; Z79.891 Long term (current) use of opiate analgesic; F17.210 Nicotine dependence, cigarettes, uncomplicated; I10 Essential (primary) hypertension; E78.5 Hyperlipidemia, unspecified; Z20.7 Contact with and (suspected) exposure to pediculosis, acariasis and other infestations
CPT/HCPCS: 36415; 71045; 80053; 81001; 82728; 82962; 83036; 83735; 83880; 84100; 84134; 84443; 84484; 85007; 85025; 86803; 87389; 93005; 97110; 97162; 97165; 97530; 99285; G0378; J1650; J1885; J3411; J3475; J7030; J7120

== ENCOUNTER 2024-09-25 15:23 | Observation (INO) | payer MEDICARE, SELFPAY ==
[2024-09-25 15:23] VITALS: BP 156/97; PULSE 110; RESP 20; TEMP 36.8; O2SAT 96; BMI 16.7
--- NOTE | 2024-09-25 15:48 | ECG_ITS ---
APPROVED REPORT Exam: Resting ECG HR:115 bpm ECG Measurements Heart Rate 115 AXES MT 133 P 81 QRSd 77 QRS 53 QT 327 T 89 QTc 395 Conclusion SINUS TACHYCARDIA WITH OCCASIONAL SUPRAVENTRICULAR PREMATURE COMPLEXES MINIMAL VOLTAGE CRITERIA FOR LVH, CONSIDER NORMAL VARIANT [MEETS CRITERIA IN ONE OF: R(aVL), S(V1), R(V5), R(V5/V6)+S(V1)] ABNORMAL RHYTHM ECG UNCONFIRMED REPORT Electronically signed by : George Jones, 09/25/2024 23:24:51
--- NOTE | 2024-09-25 15:54 | XR_ITS ---
PROCEDURE INFORMATION: Exam: XR Chest Exam date and time: 09/25/2024 4:39 PM Age: 74 years old Clinical indication: Dyspnea TECHNIQUE: Imaging protocol: Radiologic exam of the chest. Views: 1 view. COMPARISON: CR XR CHEST PORTABLE 09/02/2024 6:43 PM FINDINGS: Lungs: No evidence of acute pulmonary disease or infiltrates Pleural spaces: No large effusion or pneumothorax. Heart/Mediastinum: Stable cardiac and mediastinal contours. Bones/joints: There is partially visualized cervical spine surgical hardware. IMPRESSION: No dense parenchymal consolidation, pleural effusion, or pneumothorax.
[2024-09-25 16:03] LABS: Basophils # 0.1 K/mm3 (0-0.2); Basophils % 0.5 % (0.1-2.0); Eosinophils # 0.2 K/mm3 (0.0-0.4); Eosinophils % 1.1 % (0.1-12.0); Hematocrit 33.2 % (42.0-52.0); Hemoglobin 10.9 g/dL (14.1-18.0); Lymphocytes # 3.3 K/mm3 (0.7-4.5); Lymphocytes % 23.2 % (10-50); Mean Corpuscular Hemoglobin 30.5 pg (27.0-31.2); Mean Corpuscular Volume 92.5 fl (80-94); Mean Platelet Volume 7.4 fl (7.4-10.4); Monocytes # 0.7 K/mm3 (0.1-1.0); Neutrophils # 10.1 K/mm3 (1.8-7.8); Neutrophils % 70.3 % (37.0-80.0); Platelet Count 826 K/mm3 (142-424); Red Blood Count 3.59 M/mm3 (4.60-6.20); Red Cell Distribution Width 15.6 % (11.5-17.5); White Blood Count 14.4 K/mm3 (4.8-10.8)
[2024-09-25 16:04] LABS: Albumin Level 3.2 g/dl (3.5-5.0); Chloride 101 mmol/L (98-107); Potassium 3.8 mmoL/L (3.5-5.1); Sodium 135 mmol/L (136-145)
[2024-09-25] MEDS: LACTATED RINGERS 1000ML 1,000 ML 999 ML IV (16:04)
[2024-09-25] MEDS: ACETAMINOPHEN 1,000MG/100ML VIAL 1000 MG IV (16:04)
--- NOTE | 2024-09-25 16:04 | ED_ITS ---
Discharge Plan Disposition Chief Complaint: Weakness Prescriptions Prescriptions: No Action ondansetron 4 mg tablet,disintegrating 4 mg PO Q6H PRN (Reason: nausea and vomiting) Qty: 10 0RF losartan 25 mg Tablet 25 mg PO DAILY sertraline 25 mg Tablet 25 mg PO DAILY morphine (PF) 1 mg/mL Solution 1 mg epidural CONT Referrals Follow up/Referrals: Senia Espinoza APRN [Primary Care Provider] - See instructions Clinical Impressions Clinical Impression: Chronic malnutrition, Dehydration, moderate, Adult failure to thrive Print Language Print Language: Mongolian Discharge ED Provider: Kenia Jones General Adult HPI General Chief complaint: Weakness Stated complaint: Weakness Time Seen by Provider: 09/25/24 15:32 Mode of Arrival: EMS Source of Information: Patient and EMS Limitations: No Limitations Description of Symptoms (Recalled from ER Triage Doc. by RN): was found at home in horrid conditions and states he hasnt walked in 2-3 weeks, pt is very cachexic looking and covered in dirt History of Present Illness HPI narrative: Patient is a 74-year-old male presenting today with failure to thrive from home. He is able to answer questions appropriately he states that his son and son-in-law occasionally take care of him at home and bring him food but he has not walked over the last 2 weeks. States he has been in pain all my life. He states the pain in his lower back and his legs and his feet have gotten to the point where he just cannot walk and is debilitated and weak. No injuries from his drug standpoint no acute change in the states it has been chronic. States he is able to sit up at the side of his bed and that his kids and sometimes his neighbor will bring him food. Has not had food in over 24 hours. Denies any other symptoms such as fevers chills etc. He does admit that he cannot care for himself at the moment. Children at the bedside yet. Per nursing staff he was found in feces and had cockroaches all over his body. Patient states that he is 75 pounds below his normal weight. Related Data Home Medications ?Medication ?Instructions ?Recorded ?Confirmed morphine (PF) 1 mg/mL injection 1 mg epidural CONT 11/07/23 09/04/24 solution losartan 25 mg tablet 25 mg PO DAILY 09/04/24 09/04/24 sertraline 25 mg tablet 25 mg PO DAILY 09/04/24 09/04/24 Previous Rx's ?Medication ?Instructions ?Recorded ondansetron 4 mg disintegrating 4 mg PO Q6H PRN nausea and 07/26/24 tablet vomiting #10 tabs Allergies Allergy/AdvReac Type Severity Reaction Status Date / Time acetaminophen (From PERCOCET) Allergy Severe S-SWELLS-OR Verified 06/16/24 13:53 AL/THROAT oxycodone (From PERCOCET) Allergy Severe S-SWELLS-OR Verified 06/16/24 13:53 AL/THROAT PFSH PFSH Disclaimer: The information contained in this section may have been updated after the patient was seen, as this information can be updated by other users. Medical History Abdominal pain Posture abnormality Diarrhea Lumbar degenerative disc disease Peritonitis Urinary incontinence Bee sting reaction Anxiety Low vitamin B12 level Adjustment disorder Acute sinusitis Acute bronchitis Acute exacerbation of chronic obstructive pulmonary disease Rib injury BPH (benign prostatic hyperplasia) Asthma Hypertension Acute exacerbation of chronic low back pain Bronchitis Exposure to COVID-19 virus Sinusitis Carotid artery stenosis Asthma GERD (gastroesophageal reflux disease) History of DVT (deep vein thrombosis) HLD (hyperlipidemia) HTN (hypertension) Radiculopathy Neck pain Finger laceration Otitis media Pneumonia Lumbar radiculopathy Surgical History S/P exploratory laparotomy Hx of colonoscopy History of colectomy History of elbow surgery History of surgery on lower extremity History of splenectomy History of back surgery Family History Other No significant family history Social History Smoking Status: Never smoker second hand exposure: No alcohol intake: never substance use type: denies use current occupational status: retired housing: house caffeine: Yes Other Medical History Have you received the Flu Vaccine for this season: No Have you received the Pneumonia Vaccine: No ROS Obtained: Yes All systems reviewed & no additional complaints except as documented Physical Exam General General appearance: cachectic Head Head exam: atraumatic and normocephalic Neck Neck exam: Present full ROM Chest Chest inspection: Present normal inspection and symmetric chest wall rise Respiratory Respiratory exam: Present normal lung sounds bilaterally; Absent respiratory distress Cardiovascular Cardiovascular exam: Present regular rate and tachycardia Abdominal Exam Abdominal exam: Present soft; Absent distention or tenderness Back Exam Back exam: Present normal inspection and other (Pain pump in place no erythema tenderness or swelling surrounding this.) Neurological Exam Neurological exam: Present alert, oriented X3, CN II-XII intact and other (Extensive muscular wasting); Absent motor sensory deficit Medical Decision Making Medical Records Screening: Per USPSTF and CDC recommendations, given the prevalence of disease in our region, it is our hospital?s policy to screen for HIV and viral Hepatitis for all patients aged 18 and over and those with ongoing risk factors. Siva Inquiry Pt receiving controlled substance: No Vital Signs: 09/25/24 15:23 Temperature 98.2 F Temperature Source Rectal Pulse Rate [Left Radial] 110 H Respiratory Rate 20 Blood Pressure [Right Arm] 156/97 H Blood Pressure Mean [Right Arm] 116 02 Sat by Pulse Oximetry 96 Oxygen Delivery Method Room Air Lab Data Lab results reviewed: Yes I reviewed the patient's lab results. Lab Results 09/25/24 15:42: WBC 14.4 H, RBC 3.59 L, Hgb 10.9 L, Hct 33.2 L, MCV 92.5, MCH 30.5, MCHC 33.0, RDW 15.6, Plt Count 826 H, MPV 7.4, Neut % (Auto) 70.3, Lymph % (Auto) 23.2, [place] % (Auto) 5.0, Eos % (Auto) 1.1, Baso % (Auto) 0.5, Neut # (Auto) 10.1 H, Lymph # (Auto) 3.3, [place] # (Auto) 0.7, Eos # (Auto) 0.2, Baso # (Auto) 0.1, Sodium 135 L, Potassium 3.8, Chloride 101, Carbon Dioxide 28, Anion Gap 9.8, BUN 14, Creatinine 0.70, Estimated Creat Clear 47, Estimated GFR 111, Est GFR ( Amer) 134, Glucose 128 H, Lactate 3.4 H, Calcium 8.6, P hosphorus 4.6 H, Magnesium 2.2, Total Bilirubin 1.0, AST 51, ALT 36, Alkaline Phosphatase 135 H, Total Creatine Kinase 52 L, Troponin I < 0.01, NT-Pro-B Natriuret Pep 87.8, Total Protein 7.6, Albumin 3.2 L, Globulin 4.4 H, A lbumin/Globulin Ratio 0.7 L, TSH 2.34 09/25/24 15:42 09/25/24 15:42 Orders (Tests/Meds): ED MEDICATIONS Generic Name Dose Route Start Last Admin Trade Name Freq PRN Reason Stop Dose Admin Acetaminophen 650 mg 09/25/24 16:58 Acetaminophen 325mg Tab PO 10/25/24 16:57 Q4HP PRN Fever or Mild Pain (1-3) Enoxaparin Sodium 30 mg 09/26/24 09:00 Enoxaparin 40mg/0.4ml Syringe SUBCUT 10/26/24 08:59 DAILY [facility] Sodium Chloride 1,000 mls @ 75 mls/hr 09/25/24 17:00 Sod Chlor 0.9% 1000ml Bag IV 10/25/24 16:59 .[id number] [facility] Ondansetron HCl 4 mg 09/25/24 16:58 Ondansetron 4mg/2ml Vial IV 10/25/24 16:57 Q8HP PRN Nausea Discontinued Medications Generic Name Dose Route Start Last Admin Trade Name Freq PRN Reason Stop Dose Admin Acetaminophen 1,000 mg 09/25/24 16:00 09/25/24 16:04 Acetaminophen 1,000mg/100ml Vial IV 09/25/24 16:01 1,000 mg ONCE ONE Administration Lactated Ringer's 1,000 mls @ 999 mls/hr 09/25/24 16:00 09/25/24 16:04 Lactated Ringer's 1000 Ml Bag IV 09/25/24 17:00 999 mls/hr .[id number] [facility] Administration ORDERS Category Date Time Status CXR --portable [XR chest portable] Stat Exams 09/25/24 15:54 Completed BNP [NT Pro Brain Natriuretic Pep.] Stat Lab 09/25/24 15:42 Completed CBC w/Auto Diff [Complete Blood Count Auto Diff] Stat Lab 09/25/24 15:42 Completed CK [Creatine Kinase] Stat Lab 09/25/24 15:42 Completed CMP [Comprehensive Metabolic Panel] Stat Lab 09/25/24 15:42 Completed Complete Blood Count Auto Diff AMLAB Lab 09/26/24 06:00 Ordered Complete Blood Count Auto Diff AMLAB Lab 09/27/24 06:00 Ordered Complete Blood Count Auto Diff AMLAB Lab 09/28/24 06:00 Ordered Complete Blood Count Auto Diff AMLAB Lab 09/29/24 06:00 Ordered Complete Blood Count Auto Diff AMLAB Lab 09/30/24 06:00 Ordered Comprehensive Metabolic Panel AMLAB Lab 09/26/24 06:00 Ordered Comprehensive Metabolic Panel AMLAB Lab 09/27/24 06:00 Ordered Comprehensive Metabolic Panel AMLAB Lab 09/28/24 06:00 Ordered Comprehensive Metabolic Panel AMLAB Lab 09/29/24 06:00 Ordered Comprehensive Metabolic Panel AMLAB Lab 09/30/24 06:00 Ordered Lactic Acid Stat Lab 09/25/24 15:42 Completed Magnesium AMLAB Lab 09/26/24 06:00 Ordered Magnesium AMLAB Lab 09/27/24 06:00 Ordered Magnesium AMLAB Lab 09/28/24 06:00 Ordered Magnesium AMLAB Lab 09/29/24 06:00 Ordered Magnesium AMLAB Lab 09/30/24 06:00 Ordered Magnesium Stat Lab 09/25/24 15:42 Completed Phosphorous AMLAB Lab 09/26/24 06:00 Ordered Phosphorous AMLAB Lab 09/27/24 06:00 Ordered Phosphorous AMLAB Lab 09/28/24 06:00 Ordered Phosphorous AMLAB Lab 09/29/24 06:00 Ordered Phosphorous AMLAB Lab 09/30/24 06:00 Ordered Phosphorous Stat Lab 09/25/24 15:42 Completed TSH [Thyroid Stimulating Hormone] Stat Lab 09/25/24 15:42 Completed Trop I [Troponin I] Stat Lab 09/25/24 15:42 Completed Troponin I Q3H Lab 09/25/24 19:00 Ordered Troponin I Q3H Lab 09/25/24 22:00 Ordered UA [Urinalysis and Microscopic] Stat Lab 09/25/24 15:55 Ordered Medical Decision Narrative: 74-year-old male presents today with above history and physical. He is severely cachectic and tachycardic and clearly malnourished. No evidence of trauma from historical standpoint he has no clinical signs or symptoms of infection. Has some superficial pressure wounds on his sacral area but no skin breakdown. Will do a broad medical and infectious, and metabolic workup. He has a nonfocal neurologic exam. Most likely will need to be admitted for placement given the severe conditions that he is living in his inability to walk for the last several weeks and lack of social structure around him. Reassessment 516 I reviewed the patient's charts further and he was recent in the hospital for a similar presentation was evaluated by PT OT and actually was accepted for placement however the patient last-minute decided he wanted to go home. He was sent home with family and home health. This time he states that he wants to come back in the hospital and wants to be placed. He is severely dehydrated and malnourished no other acute abnormalities noted. I spoke with our hospital medicine physician who agreed to accept the patient for further evaluation and management and placement. Critical Care Critical Care Time Critical Care Time: No
[2024-09-25 16:06] LABS: Blood Urea Nitrogen 14 mg/dl (9-20); Creatinine Clearance Estimated 47 mL/min (50-200); Estimated Glomerular Filt Rate 111 ml/min (>60); GFR (African American) 134 ML/MIN (>60)
[2024-09-25 16:07] LABS: Alanine Aminotransferase 36 U/L (12-78); Albumin/Globulin Ratio 0.7 (1.1-1.8); Alkaline Phosphatase 135 U/L (38-126); Anion Gap 9.8 mEq/L (5-15); Aspartate Amino Transferase 51 U/L (17-59); Calcium 8.6 mg/dl (8.4-10.2); Carbon Dioxide 28 mmol/L (22.0-30.0); Creatine Kinase 52 U/L (55-170); Globulin 4.4 g/dL (1.3-3.2); Glucose 128 mg/dl (74-100); Magnesium 2.2 mg/dl (1.6-2.3); Phosphorous 4.6 mg/dl (2.5-4.5); Total Protein,Serum 7.6 g/dl (6.3-8.2)
[2024-09-25 16:13] LABS: Lactic Acid 3.4 mmol/L (0.7-2.1)
[2024-09-25 16:17] LABS: NT Pro Brain Natriuretic Pep. 87.8 pg/mL (0-125)
[2024-09-25 16:22] LABS: Troponin I < 0.01 ng/ml (0.00-0.034)
[2024-09-25 16:38] LABS: Thyroid Stimulating Hormone 2.34 uIU/mL (0.465-4.68)
--- NOTE | 2024-09-25 17:14 | PC.NURSE ---
spoke with electrician [employer] regarding bed asssignment patient is admitted per hospital medicine for FTT and dehydration
--- NOTE | 2024-09-25 17:31 | PC.NURSE ---
called report to marco stanford on 2nd floor and answered all questions
[2024-09-25 17:36] VITALS: BP 164/92; PULSE 95; RESP 20; TEMP 36.8; O2SAT 95
--- NOTE | 2024-09-25 17:49 | PC.NURSE ---
pt unsure of meds and only one on external is zofran
[2024-09-25 17:59] VITALS: BP 155/101; PULSE 91; RESP 15; TEMP 36.9; O2SAT 94; BMI 21.2
--- NOTE | 2024-09-25 18:00 | PC.NURSE ---
alerted nurse about elevated b/p
[2024-09-25 19:33] VITALS: BP 112/68; PULSE 113; RESP 18; TEMP 36.4; O2SAT 98
[2024-09-25 19:44] LABS: Troponin I < 0.01 ng/ml (0.00-0.034)
[2024-09-25 19:54] LABS: Microscopic, Urine URINE MICROSCOPIC (MICROSCOPIC)
[2024-09-25 19:55] LABS: Appearance,Urine CLEAR (Clear); Blood, Urine Negative (Negative); Color,Urine YELLOW (Yellow); Glucose,Urine (UA) Negative (Negative); Ketones,Urine Negative (Negative); Leukocyte Esterase,Urine Negative (Negative); Nitrate,Urine Negative (Negative); Protein,Urine Negative (Negative); Specific Gravity, Urine 1.025 (1.005-1.030); Urobilinogen,Urine >=8.0 EU/dl (0.2)
[2024-09-25 19:57] LABS: Bilirubin,Urine Negative (Negative)
[2024-09-25 19:58] LABS: Reflex Lactic Add Lactic Reflex
[2024-09-25 20:09] LABS: Squamous Epithelial Cell,Urine Occasional #/hpf (0-5); WBC,Urine Occasional #/hpf (0-3)
[2024-09-25 20:10] LABS: Bacteria,Urine 2+ /lpf; Mucus,Urine 3+ /lpf
[2024-09-25 20:29] LABS: Lactic Acid Follow Up (RFLX 1) 2.5 mmol/L (0.7-2.1)
[2024-09-25 22:18] LABS: Reflex Lactic (2 hrs) Add Lactic Reflex
[2024-09-25] MEDS: 0.9 % SODIUM CHLORIDE 1000ML 1,000 ML 75 ML IV (22:20)
[2024-09-25 22:29] LABS: Troponin I < 0.01 ng/ml (0.00-0.034)
[2024-09-25 22:44] LABS: Lactic Acid Follow up (RFLX 2) 1.8 mmol/L (0.7-2.1)
--- NOTE | 2024-09-25 23:59 | EXP.HP ---
History of Present Illness *Admission Date: 09/25/24 *Reason for visit:: Failure to thrive *History of present illness: Mr. Refugio Jones is a 74-year-old male with a medical history significant for progressive debility, mild cognitive impairment, hypertension, chronic pain syndrome presents again from home for inability to care for himself after he was found at home in a dilapidated state, apparently has not walked in more than a week and dirt on him. Of note, he was admitted for similar presentation earlier this month and was recommended to be placed at a SNF, but patient declined and opted for home health. He states that his son and son-in-law occasionally take care of him at home and bring him food but he has not walked over the last 2 weeks. States he has been in pain all my life. He states the pain in his lower back and his legs and his feet have gotten to the point where he just cannot walk and is debilitated and weak. No injuries from his drug standpoint no acute change in the states it has been chronic. States he is able to sit up at the side of his bed and that his kids and sometimes his neighbor will bring him food. Has not had food in over 24 hours. Denies any other symptoms such as fevers chills etc. He does admit that he cannot care for himself at the moment. Children at the bedside yet. Per nursing staff he was found in feces and had cockroaches all over his body. Patient states that he is 75 pounds below his normal weight. Workup significant for WBC 14.4, platelet 826. CXR did not show acute findings. Case was discussed with ED provider and decision was made to admit patient for progressive physical debility and failure to thrive. Patient is open to being placed at a SNF. [facility] Disclaimer: The information contained in this section may have been updated after the patient was seen, as this information can be updated by other users. Medical History Abdominal pain Posture abnormality Diarrhea Lumbar degenerative disc disease Peritonitis Urinary incontinence Bee sting reaction Anxiety Low vitamin B12 level Adjustment disorder Acute sinusitis Acute bronchitis Acute exacerbation of chronic obstructive pulmonary disease Rib injury BPH (benign prostatic hyperplasia) Asthma Hypertension Acute exacerbation of chronic low back pain Bronchitis Exposure to COVID-19 virus Sinusitis Carotid artery stenosis Asthma GERD (gastroesophageal reflux disease) History of DVT (deep vein thrombosis) HLD (hyperlipidemia) HTN (hypertension) Radiculopathy Neck pain Finger laceration Otitis media Pneumonia Lumbar radiculopathy Surgical History S/P exploratory laparotomy Hx of colonoscopy History of colectomy History of elbow surgery History of surgery on lower extremity History of splenectomy History of back surgery Family History Other No significant family history Social History Smoking Status: Never smoker second hand exposure: No alcohol intake: never substance use type: denies use current occupational status: retired housing: house caffeine: Yes Other Medical History Have you received the Flu Vaccine for this season: No Have you received the Pneumonia Vaccine: No Meds Home Medications and Allergies Home Medications ?Medication ?Instructions ?Recorded ?Confirmed ?Type morphine (PF) 1 mg/mL injection 1 mg epidural CONT 11/07/23 09/04/24 History solution ondansetron 4 mg disintegrating 4 mg PO Q6H PRN nausea and 07/26/24 09/04/24 Rx tablet vomiting #10 tabs losartan 25 mg tablet 25 mg PO DAILY 09/04/24 09/04/24 History sertraline 25 mg tablet 25 mg PO DAILY 09/04/24 09/04/24 History New Prescriptions to Start Prescriptions: Allergies Allergy/AdvReac Type Severity Reaction Status Date / Time acetaminophen (From PERCOCET) Allergy Severe S-SWELLS-OR Verified 06/16/24 13:53 AL/THROAT oxycodone (From PERCOCET) Allergy Severe S-SWELLS-OR Verified 06/16/24 13:53 AL/THROAT Exam Data for Last 24 hours Vital signs and Labs for Last 24 Hours: Temp Pulse Resp BP Pulse Ox O2 Del Method 97.5 F L 113 H 18 112/68 98 Room Air 09/25/24 19:33 09/25/24 19:33 09/25/24 19:33 09/25/24 19:33 09/25/24 19:33 09/25/24 19:33 Laboratory Results - last 24 hr 09/25/24 15:42: WBC 14.4 H, RBC 3.59 L, Hgb 10.9 L, Hct 33.2 L, MCV 92.5, MCH 30.5, MCHC 33.0, RDW 15.6, Plt Count 826 H, MPV 7.4, Neut % (Auto) 70.3, Lymph % (Auto) 23.2, [place] % (Auto) 5.0, Eos % (Auto) 1.1, Baso % (Auto) 0.5, Neut # (Auto) 10.1 H, Lymph # (Auto) 3.3, [place] # (Auto) 0.7, Eos # (Auto) 0.2, Baso # (Auto) 0.1, Sodium 135 L, Potassium 3.8, Chloride 101, Carbon Dioxide 28, Anion Gap 9.8, BUN 14, Creatinine 0.70, Estimated Creat Clear 47, Estimated GFR 111, Est GFR ( Amer) 134, Glucose 128 H, Lactate 3.4 H, Calcium 8.6, Phosphorus 4.6 H, Magnesium 2.2, Total Bilirubin 1.0, AST 51, ALT 36, Alkaline Phosphatase 135 H, Total Creatine Kinase 52 L, Troponin I < 0.01, NT-Pro-B Natriuret Pep 87.8, Total Protein 7.6, Albumin 3.2 L, Globulin 4.4 H, Albumin/Globulin Ratio 0.7 L, TSH 2.34 09/25/24 19:13: Troponin I < 0.01 09/25/24 19:37: Urine Color Yellow, Urine Appearance Clear, Urine pH 6.0, Ur Specific Arnold 1.025, Urine Protein Negative, Urine Glucose (UA) Negative, Urine Ketones Negative, Urine Blood Negative, Urine Nitrate Negative, Urine Bilirubin Negative, Urine Urobilinogen >=8.0, Ur Leukocyte Esterase Negative, Urine RBC 3-5, Urine WBC Occasional, Ur Squamous Epith Cells Occasional, Urine Bacteria 2+, Urine Mucus 3+ 09/25/24 20:14: Lactate 2.5 H 09/25/24 21:58: Troponin I < 0.01 09/25/24 22:28: Lactate 1.8 I & O for Last 24 hours: Intake & Output 09/22/24 09/23/24 09/24/24 09/25/24 23:59 23:59 23:59 23:59 Intake Total 240 / 240 Balance 240 / 240 Weight 63.458 kg Constitutional Constitutional: no acute distress and cachectic *Routine HEENT Exam Head: Present normocephalic Eye: Present EOMI and PERRL ENT: Present mucous membranes moist *Routine Neck Exam Neck: Present supple; Absent lymphadenopathy *Routine Respiratory Exam Respiratory: Present CTA bilaterally *Routine Cardiovascular Exam Cardiovascular: Present RRR *Routine Abdominal Exam Abdominal: Present soft and normoactive bowel sounds; Absent tenderness *Routine Rectal Exam Rectal:: deferred *Routine Genitalia Exam Genitalia:: deferred *Routine Extremities Exam Extremities: Absent cyanosis, clubbing or edema *Routine Skin Exam Skin: Present warm; Absent rash *Routine Neurological Exam Neurological: Present alert and oriented X3 Assessment and Plan *Assessment and plan (1) Adult failure to thrive: Status: Acute Category: Medical Code(s): R62.7 - Adult failure to thrive (2) Chronic malnutrition: Status: Acute Category: Medical Code(s): E46 - Unspecified protein-calorie malnutrition (3) Self-care deficit: Status: Acute Category: Medical Code(s): Z78.9 - Other specified health status (4) MCI (mild cognitive impairment): Status: Acute Category: Medical Code(s): G31.84 - Mild cognitive impairment of uncertain or unknown etiology (5) Generalized weakness: Status: Acute Category: Medical Code(s): R53.1 - Weakness (6) Debility: Status: Acute Category: Medical Code(s): R53.81 - Other malaise Plan Mr. Refugio Jones is a 74-year-old male with a medical history significant for progressive debility, mild cognitive impairment, hypertension, chronic pain syndrome presents again from home for inability to care for himself after he was found at home in a dilapidated state, apparently has not walked in more than a week and dirt on him. Of note, he was admitted for similar presentation earlier this month and was recommended to be placed at a SNF, but patient declined and opted for home health. He states that his son and son-in-law occasionally take care of him at home and bring him food but he has not walked over the last 2 weeks. States he has been in pain all my life. He states the pain in his lower back and his legs and his feet have gotten to the point where he just cannot walk and is debilitated and weak. No injuries from his drug standpoint no acute change in the states it has been chronic. States he is able to sit up at the side of his bed and that his kids and sometimes his neighbor will bring him food. Has not had food in over 24 hours. Denies any other symptoms such as fevers chills etc. He does admit that he cannot care for himself at the moment. Children at the bedside yet. Per nursing staff he was found in feces and had cockroaches all over his body. Patient states that he is 75 pounds below his normal weight. Workup significant for WBC 14.4, platelet 826. CXR did not show acute findings. Case was discussed with ED provider and decision was made to admit patient for progressive physical debility and failure to thrive. Patient is open to being placed at a SNF. #Self-care deficit #Progressive debility #Mild cognitive impairment #Severe protein malnutrition ? Unfortunately, due to patient's chronic pain syndrome he has had progressive physical debility and decline over the past months. He is unable to take care of himself at home. Would highly benefit from SNF and/or long-term assisted living. Patient states he is open to it. ? PT/OT consulted, pending recommendations. ? Case management consulted, pending recommendations. - On previous admission, albumin was low at 2.9. TSH obtained and normal at 2.7. A1c normal at 4.9. ? NS at 75 mL/h until patient can tolerate diet. ? Ensure supplementation with meals. #Leukocytosis ? Initial WBC 14.4, likely reactive in the setting of dehydration. Given 1 L bolus in the ED. No signs of infection at this time ? Follow-up morning WBC. #Hypertension ? Resume home losartan once appropriate. #Chronic pain - Consider pain management consult like in last admission. ? Tylenol, Percocet as needed for pain. Full code DVT prophylaxis: Lovenox 30 mg
[2024-09-26 04:00] VITALS: BP 111/83; PULSE 98; RESP 18; TEMP 36.8; O2SAT 96; BMI 21.2
[2024-09-26] MEDS: OXYCODONE 5MG W/APAP 325MG TABLET 1 EACH PO ×2 (05:22→23:22)
[2024-09-26 06:13] LABS: Albumin Level 2.8 g/dl (3.5-5.0); Basophils # 0.1 K/mm3 (0-0.2); Basophils % 0.5 % (0.1-2.0); Chloride 105 mmol/L (98-107); Eosinophils # 0.1 K/mm3 (0.0-0.4); Eosinophils % 0.6 % (0.1-12.0); Hematocrit 29.7 % (42.0-52.0); Hemoglobin 9.9 g/dL (14.1-18.0); Lymphocytes # 2.3 K/mm3 (0.7-4.5); Lymphocytes % 20.4 % (10-50); Mean Corpuscular HGB Conc 33.2 g/dL (31.8-35.4); Mean Corpuscular Hemoglobin 30.3 pg (27.0-31.2); Mean Corpuscular Volume 91.1 fl (80-94); Mean Platelet Volume 7.4 fl (7.4-10.4); Monocytes # 0.7 K/mm3 (0.1-1.0); Monocytes % 6.2 % (1.7-9.3); Neutrophils # 8.1 K/mm3 (1.8-7.8); Neutrophils % 72.3 % (37.0-80.0); Platelet Count 718 K/mm3 (142-424); Red Blood Count 3.26 M/mm3 (4.60-6.20); Red Cell Distribution Width 15.8 % (11.5-17.5); White Blood Count 11.2 K/mm3 (4.8-10.8)
[2024-09-26 06:14] LABS: Potassium 3.9 mmoL/L (3.5-5.1); Sodium 136 mmol/L (136-145)
[2024-09-26 06:16] LABS: Alanine Aminotransferase 26 U/L (12-78); Anion Gap 6.9 mEq/L (5-15); Aspartate Amino Transferase 46 U/L (17-59); Blood Urea Nitrogen 15 mg/dl (9-20); Carbon Dioxide 28 mmol/L (22.0-30.0); Creatinine Clearance Estimated 60 mL/min (50-200); Estimated Glomerular Filt Rate 132 ml/min (>60); GFR (African American) 160 ML/MIN (>60)
[2024-09-26 06:17] LABS: Albumin/Globulin Ratio 0.7 (1.1-1.8); Alkaline Phosphatase 112 U/L (38-126); Bilirubin,Total 0.7 mg/dl (0.2-1.3); Calcium 8.2 mg/dl (8.4-10.2); Globulin 3.8 g/dL (1.3-3.2); Glucose 128 mg/dl (74-100); Phosphorous 3.4 mg/dl (2.5-4.5); Total Protein,Serum 6.6 g/dl (6.3-8.2)
--- NOTE | 2024-09-26 06:30 | PC.NURSE ---
09/26/24 Pt is alert and orientated x 4. He was admitted for Failure to thrive. Pt is a lettle hard to understand when talking but able to communicate needs. He has and external purewick in place. He slept most of the night. He is concerned about his cats and dog. He said someone is caring for them but he misses them. Vital signs stable. Personal items and call guillen in reach.
--- NOTE | 2024-09-26 07:28 | P.PN_ITS ---
Subjective *Date: 09/26/24 *Time: 16:54 Interval history: Globally weak. Stable on room air. Requiring significant assistance to get to bedside chair. Afebrile. No complaints today. Medical Exam Vital signs and Labs for Last 24 Hours: Vital Signs Temp Pulse Pulse Resp BP BP Pulse Ox 09/26/24 04:36 09/26/24 04:00 98.3 F 98 H 18 111/83 96 09/26/24 03:00 09/26/24 01:00 09/25/24 23:00 09/25/24 21:00 09/25/24 20:00 09/25/24 19:33 97.5 F L 113 H 18 112/68 98 09/25/24 18:09 09/25/24 17:59 98.5 F 91 H 15 155/101 H 94 L 09/25/24 17:36 98.2 F 95 H 20 164/92 H 09/25/24 15:23 98.2 F 110 H 20 156/97 H 96 O2 Del Method 09/26/24 04:36 Room Air 09/26/24 04:00 Room Air 09/26/24 03:00 Room Air 09/26/24 01:00 Room Air 09/25/24 23:00 Room Air 09/25/24 21:00 Room Air 09/25/24 20:00 Room Air 09/25/24 19:33 Room Air 09/25/24 18:09 Room Air 09/25/24 17:59 Room Air 09/25/24 17:36 Room Air 09/25/24 15:23 Room Air Intake and Output 09/25/24 09/25/24 09/26/24 15:59 23:59 07:59 Intake Total 240 / 240 Output Total 400 / 400 Balance 240 / 240 -400 / -400 Intake: Intake, Oral Amount 240 / 240 Output: Output, Urine Amount 400 / 400 Other: Number of Unmeasured Voids 0 Weight 49.895 kg 63.458 kg 63.458 kg Patient Weight 09/26/24 23:59 Weight 63.458 kg Laboratory Results - last 24 hr 09/25/24 15:42: WBC 14.4 H, RBC 3.59 L, Hgb 10.9 L, Hct 33.2 L, MCV 92.5, MCH 30.5, MCHC 33.0, RDW 15.6, Plt Count 826 H, MPV 7.4, Neut % (Auto) 70.3, Lymph % (Auto) 23.2, [place] % (Auto) 5.0, Eos % (Auto) 1.1, Baso % (Auto) 0.5, Neut # (Auto) 10.1 H, Lymph # (Auto) 3.3, [place] # (Auto) 0.7, Eos # (Auto) 0.2, Baso # (Auto) 0.1, Sodium 135 L, Potassium 3.8, Chloride 101, Carbon Dioxide 28, Anion Gap 9.8, BUN 14, Creatinine 0.70, Estimated Creat Clear 47, Estimated GFR 111, Est GFR ( Amer) 134, Glucose 128 H, Lactate 3.4 H, Calcium 8.6, Phosphorus 4.6 H, Magnesium 2.2, Total Bilirubin 1.0, AST 51, ALT 36, Alkaline Phosphatase 135 H, Total Creatine Kinase 52 L, Troponin I < 0.01, NT-Pro-B Natriuret Pep 87.8, Total Protein 7.6, Albumin 3.2 L, Globulin 4.4 H, Albumin/Globulin Ratio 0.7 L, TSH 2.34 09/25/24 19:13: Troponin I < 0.01 09/25/24 19:37: Urine Color Yellow, Urine Appearance Clear, Urine pH 6.0, Ur Specific [place] 1.025, Urine Protein Negative, Urine Glucose (UA) Negative, Urine Ketones Negative, Urine Blood Negative, Urine Nitrate Negative, Urine Bilirubin Negative, Urine Urobilinogen >=8.0, Ur Leukocyte Esterase Negative, Urine RBC 3-5, Urine WBC Occasional, Ur Squamous Epith Cells Occasional, Urine Bacteria 2+, Urine Mucus 3+ 09/25/24 20:14: Lactate 2.5 H 09/25/24 21:58: Troponin I < 0.01 09/25/24 22:28: Lactate 1.8 09/26/24 05:28: WBC 11.2 H, RBC 3.26 L, Hgb 9.9 L, Hct 29.7 L, MCV 91.1, MCH 30.3, MCHC 33.2, RDW 15.8, Plt Count 718 H, MPV 7.4, Neut % (Auto) 72.3, Lymph % (Auto) 20.4, [place] % (Auto) 6.2, Eos % (Auto) 0.6, Baso % (Auto) 0.5, Neut # (Auto) 8.1 H, Lymph # (Auto) 2.3, [place] # (Auto) 0.7, Eos # (Auto) 0.1, Baso # (Auto) 0.1, Sodium 136, Potassium 3.9, Chloride 105, Carbon Dioxide 28, Anion Gap 6.9, BUN 15, Creatinine 0.60 L, Estimated Creat Clear 60, Estimated GFR 132, Est GFR ( Amer) 160, Glucose 128 H, Calcium 8.2 L, Phosphorus 3.4 D, Magnesium 2.0, Total Bilirubin 0.7, AST 46, ALT 26 D, Alkaline Phosphatase 112, Total Protein 6.6, Albumin 2.8 L D, Globulin 3.8 H, Albumin/Globulin Ratio 0.7 L I & O for Labs for Last 24 Hours: Intake & Output 09/23/24 09/24/24 09/25/24 09/26/24 23:59 23:59 23:59 23:59 Intake Total 240 / 240 Output Total 400 / 400 Balance 240 / 240 -400 / -400 Weight 63.458 kg 63.458 kg Constitutional: Present no acute distress, average body habitus, disheveled and cooperative Head: Present atraumatic and normocephalic Respiratory: Present normal respiratory effort; Absent accessory muscle use, rhonchi, wheezes or crackles Cardiac: Present Reg Rate and Rhythm GI: Present soft and normal bowel sounds; Absent distention or tenderness Extremities: Present normal inspection and full ROM Skin: Present intact and erythema (Wound on left buttock; consistent with stage I decubitus with slight erythema of skin.) Neuro: Present Grossly Intact, alert, awake, oriented x 3 and moves all extremities Assessment and Plan *Assessment and plan (1) Adult failure to thrive: Status: Acute Category: Medical Code(s): R62.7 - Adult failure to thrive (2) Decubitus ulcer of buttock, stage 1: Status: Acute Category: Medical Code(s): L89.301 - Pressure ulcer of unspecified buttock, stage 1 (3) Chronic malnutrition: Status: Acute Category: Medical Code(s): E46 - Unspecified protein-calorie malnutrition (4) Self-care deficit: Status: Acute Category: Medical Code(s): Z78.9 - Other specified health status (5) MCI (mild cognitive impairment): Status: Acute Category: Medical Code(s): G31.84 - Mild cognitive impairment of uncertain or unknown etiology (6) Generalized weakness: Status: Acute Category: Medical Code(s): R53.1 - Weakness (7) Debility: Status: Acute Category: Medical Code(s): R53.81 - Other malaise Plan Mr. Refugio Jones is a 74-year-old male with a medical history significant for progressive debility, mild cognitive impairment, hypertension, chronic pain syndrome presents again from home for inability to care for himself after he was found at home in a dilapidated state, apparently has not walked in more than a week and dirt on him. Of note, he was admitted for similar presentation earlier this month and was recommended to be placed at a SNF, but patient declined and opted for home health. He states that his son and son-in-law occasionally take care of him at home and bring him food but he has not walked over the last 2 weeks. States he has been in pain all my life. He states the pain in his lower back and his legs and his feet have gotten to the point where he just cannot walk and is debilitated and weak. No injuries from his drug standpoint no acute change in the states it has been chronic. States he is able to sit up at the side of his bed and that his kids and sometimes his neighbor will bring him food. Has not had food in over 24 hours. Denies any other symptoms such as fevers chills etc. He does admit that he cannot care for himself at the moment. Children at the bedside yet. Per nursing staff he was found in feces and had cockroaches all over his body. Patient states that he is 75 pounds below his normal weight. Workup significant for WBC 14.4, platelet 826. CXR did not show acute findings. Case was discussed with ED provider and decision was made to admit patient for progressive physical debility and failure to thrive. Patient is open to being placed at a SNF. Awaiting placement. Continues to require inpatient management. #Self-care deficit #Progressive debility #Mild cognitive impairment #Severe protein malnutrition ? Unfortunately, due to patient's chronic pain syndrome he has had progressive physical debility and decline over the past months. He is unable to take care of himself at home. Would highly benefit from SNF and/or long-term assisted living. Patient states he is agreeable at this time. ? PT/OT consulted, p recommend SNF placement. ? Case management consulted, pending recommendations. - On previous admission, albumin was low at 2.9. TSH obtained and normal at 2.7. A1c normal at 4.9. ?High-protein diet with supplementation #Leukocytosis # Cellulitis ? Initial WBC 14.4, improved to 11. Does have skin wound to left buttocks. Will initiate ceftriaxone 1 g daily for cellulitis likely reactive in the setting of dehydration. ? Repeat CBC, CMP, magnesium ordered for the morning. #Hypertension ? Resume home losartan once appropriate. #Chronic pain - Consider pain management consult like in last admission. ? Tylenol, Percocet 5mg q6h as needed for pain. monitor for toxicity Full code DVT prophylaxis: Lovenox 30 mg Regular diet with supplementation
[2024-09-26 08:00] VITALS: BP 113/65; PULSE 106; RESP 14; TEMP 37; O2SAT 97
[2024-09-26] MEDS: ENOXAPARIN 40MG/0.4ML SYRINGE 40 MG SUBCUT (09:01)
--- NOTE | 2024-09-26 09:26 | HMH.PHAINT1 ---
Pharmacy Intervention Comments: MEDICATION RECONCILIATION COMPLETED ON PATIENT USING EXTERNAL FILL HISTORY FROM PHARMACY AND DISCHARGE SUMMARY FROM PREVIOUS ADMISSION. -MILY TILLMAN, EVAND
--- NOTE | 2024-09-26 14:17 | HMH.PTEV ---
Physical Therapy Evaluation Rehab PT IP Evaluation Start: 09/25/24 16:58 Freq: ONCE Status: Active Protocol: Document 09/26/24 13:08 PDESEROUX (Rec: 09/26/24 13:17 [email or web address] [id number]) Subjective/History History History Pt. is a 74 year old Male who presents to 2nd floor [facility] Inpatient w/ c/o chronic and constant BLE edema and P! that worsens w/ activity. Pt. reports living alone in a 1- story home w/ two larger dogs. Pt. reports he has some assistance from others w/ ADLs in his home environment, but also when he leaves his home. Pt. reports ambulates around w / his FWW, but states he is mostly sedentary throughout the day. Subjective Subjective Pt. reports, my legs hurt. New diagnosis of cancer in past 12 No months? Rehab PT IP Eval Objective Appearance Patient Behavior Appropriate,Cooperative, Anxious,Guarded,Fearful, Wandering Patient Orientation Person,Place,Age Difficulty following instructions mild Speech Pattern Appropriate,Slurred,Soft- Spoken,Mumbled,Poor Articulation Ambulation Patient Able to Ambulate Yes Ambulation Observation IP General Gait Pattern Observation Wide Based Gait,Shuffling Step Ambulation Distance (feet) 5 Ambulation Assistive Device Rolling Walker Ambulation Ability Moderate x 1 (50% assist) Balance Ability to Arise Able, uses arms to help Sitting Balance Steady, safe Standing Balance Steady, wide stance Dynamic Sitting Balance Ability Good Dynamic Standing Balance Ability Fair Transfers Bed Transfer Ability Moderate x 1 (50% assist) Chair Transfer Ability Maximum x 1 (75% assist) Sit to Stand Bed Transfer Ability Maximum x 1 (75% assist) Sit to Stand Chair Transfer Ability Maximum x 1 (75% assist) Pain Right Ankle Pain Intensity 5 Left Ankle Pain Intensity 5 ROM RLE PT ROM Status WFL LLE PT ROM Status WFL MMT RLE PT MMT WFL LLE PT MMT WFL Rehab PT IP prob,goals,plan Problems Date of Evaluation: 09/26/24 PT IP Problems Bed Mobility,Transfers,Gait, Balance,Self care,Safety Rehab Potential Rehab Potential Good Equipment Needs Assistive Devices Rolling / Wheeled Walker Plan PT Intervention Plan Bed Mobility,Transfers,Gait, Balance,Self care,Safety, Therapeutic Exercise PT Plan Frequency BID Duration LOS Discharge Goals Bed Transfer Ability Minimal x 1 (25% assist) Sit to Stand Chair Transfer Ability Moderate x 1 (50% assist) Ambulation Assistive Device Rolling Walker Ambulation Distance (feet) 15 Discharge Plan PT Discharge Plan Upon discharge from [facility], once medically stable per MD, pt. is most appropriate for a SNF setting to promote functional muscle strengthening and endurance training to improve on the current quality of life w/ ADLs. Eval Complexity Eval Charge Codes 68894 - Low Complexity PHYSICIAN CERTIFICATION: I certify the specified therapy services for Refugio Jones are required, authorized, and reviewed every 30 days.
[2024-09-26] MEDS: 0.9 % SODIUM CHLORIDE 1000ML 1,000 ML 75 ML IV (14:44)
--- NOTE | 2024-09-26 14:51 | PC.WOUNDNOTE ---
SORES/SKIN TEAR NOTED TO LEFT BUTTOCK/HIP
[2024-09-26 16:00] VITALS: BP 139/67; PULSE 87; RESP 12; RESP 15; TEMP 36.5; TEMP 36.6; O2SAT 98
--- NOTE | 2024-09-26 16:31 | PC.NURSE ---
patient is alert and oriented x4. remains on room air. has been up to the chair this shift x1-2 assist. he is now resting in bed. NS still infusing @75 mls/hr. patient has a large loose BM earlier in shift. no c/o pain. purewick remains in place. wound note charted. call light within reach.
[2024-09-26] MEDS: CEFTRIAXONE SODIUM 1 GM in 0.9 % SODIUM CHLORIDE 50 ML IV (17:21)
[2024-09-27 04:00] VITALS: BP 119/73; PULSE 75; RESP 16; TEMP 36.9; O2SAT 98; BMI 21.0
[2024-09-27] MEDS: OXYCODONE 5MG W/APAP 325MG TABLET 1 EACH PO ×2 (06:07→19:14)
[2024-09-27] MEDS: 0.9 % SODIUM CHLORIDE 1000ML 1,000 ML 75 ML IV ×2 (06:08→19:09)
--- NOTE | 2024-09-27 06:44 | PC.NURSE ---
Pt is alert and oriented x4. Pt c/o right hip pain and has been treated per MAR. Pt has been turned as tolerated. Foam dressing applied to Pt L hip. Pt has rested well for the most part of the shift.
[2024-09-27 06:54] LABS: Basophils # 0.1 K/mm3 (0-0.2); Basophils % 0.7 % (0.1-2.0); Eosinophils # 0.2 K/mm3 (0.0-0.4); Eosinophils % 2.8 % (0.1-12.0); Hematocrit 27.4 % (42.0-52.0); Hemoglobin 8.7 g/dL (14.1-18.0); Lymphocytes # 2.8 K/mm3 (0.7-4.5); Lymphocytes % 33.7 % (10-50); Mean Corpuscular HGB Conc 31.9 g/dL (31.8-35.4); Mean Corpuscular Hemoglobin 29.6 pg (27.0-31.2); Mean Platelet Volume 7.8 fl (7.4-10.4); Monocytes # 0.6 K/mm3 (0.1-1.0); Monocytes % 7.5 % (1.7-9.3); Neutrophils # 4.6 K/mm3 (1.8-7.8); Neutrophils % 55.3 % (37.0-80.0); Platelet Count 703 K/mm3 (142-424); Red Blood Count 2.95 M/mm3 (4.60-6.20); Red Cell Distribution Width 15.9 % (11.5-17.5); White Blood Count 8.3 K/mm3 (4.8-10.8)
[2024-09-27 07:03] LABS: Albumin Level 2.5 g/dl (3.5-5.0); Chloride 108 mmol/L (98-107); Sodium 137 mmol/L (136-145)
[2024-09-27 07:04] LABS: Potassium 3.7 mmoL/L (3.5-5.1)
[2024-09-27 07:06] LABS: Alanine Aminotransferase 20 U/L (12-78); Albumin/Globulin Ratio 0.7 (1.1-1.8); Alkaline Phosphatase 93 U/L (38-126); Anion Gap 4.7 mEq/L (5-15); Aspartate Amino Transferase 33 U/L (17-59); Bilirubin,Total 0.4 mg/dl (0.2-1.3); Carbon Dioxide 28 mmol/L (22.0-30.0); Globulin 3.5 g/dL (1.3-3.2); Phosphorous 3.4 mg/dl (2.5-4.5)
[2024-09-27 07:07] LABS: Calcium 8.1 mg/dl (8.4-10.2); Glucose 98 mg/dl (74-100); Magnesium 2.1 mg/dl (1.6-2.3)
[2024-09-27 07:11] LABS: Blood Urea Nitrogen 10 mg/dl (9-20)
[2024-09-27 07:12] LABS: Creatinine Clearance Estimated 60 mL/min (50-200); Estimated Glomerular Filt Rate 132 ml/min (>60); GFR (African American) 160 ML/MIN (>60)
[2024-09-27 08:00] VITALS: BP 126/50; PULSE 88; RESP 18; TEMP 36.6; O2SAT 97
[2024-09-27] MEDS: ENOXAPARIN 40MG/0.4ML SYRINGE 40 MG SUBCUT (08:05)
[2024-09-27] MEDS: ACETAMINOPHEN 325MG TAB 650 MG PO ×2 (08:38→14:08)
--- NOTE | 2024-09-27 13:14 | P.PN_ITS ---
Subjective *Date: 09/27/24 *Time: 13:14 Interval history: Feeling better today. Tolerating p.o. intake. On room air. Medical Exam Vital signs and Labs for Last 24 Hours: Vital Signs Temp Pulse Resp BP Pulse Ox O2 Del Method 09/27/24 13:00 Room Air 09/27/24 11:00 Room Air 09/27/24 09:00 Room Air 09/27/24 08:00 Room Air 09/27/24 08:00 97.9 F 88 18 126/50 L 97 Room Air 09/27/24 06:48 Room Air 09/27/24 04:44 Room Air 09/27/24 04:00 98.4 F 75 16 119/73 98 Room Air 09/27/24 03:00 Room Air 09/27/24 01:00 Room Air 09/26/24 23:00 Room Air 09/26/24 20:58 Room Air 09/26/24 20:00 Room Air 09/26/24 19:00 Room Air 09/26/24 17:00 Room Air 09/26/24 16:00 97.7 F 87 12 139/67 98 Room Air 09/26/24 16:00 97.9 F 87 15 139/67 98 Room Air 09/26/24 15:00 Room Air Intake and Output 09/26/24 09/27/24 09/27/24 23:59 07:59 15:59 Intake Total 615 / 1585 970 / 1585 Output Total 0 / 725 0 / 0 0 / 0 Balance 0 / 1716 615 / 1585 970 / 1585 Intake: Intake, Oral Amount 240 / 960 720 / 960 Intake, Total IV Amount 375 / 625 250 / 625 0.9 % Sodium Chloride 1000ML 1, 375 / 625 250 / 625 000 ml @ 75 mls/hr IV .[id number] [facility] Rx#:[id number] Output: Output, Urine Amount 0 / 725 0 / 0 0 / 0 Other: Number of Unmeasured Voids 1 1 1 Weight 63.049 kg Patient Weight 09/27/24 23:59 Weight 63.049 kg Laboratory Results - last 24 hr 09/27/24 05:50: WBC 8.3 D, RBC 2.95 L, Hgb 8.7 L, Hct 27.4 L, MCV 93.0, MCH 29.6, MCHC 31.9, RDW 15.9, Plt Count 703 H, MPV 7.8, Neut % (Auto) 55.3, Lymph % (Auto) 33.7, [place] % (Auto) 7.5, Eos % (Auto) 2.8, Baso % (Auto) 0.7, Neut # (Auto) 4.6, Lymph # (Auto) 2.8, [place] # (Auto) 0.6, Eos # (Auto) 0.2, Baso # (Auto) 0.1, Sodium 137, Potassium 3.7, Chloride 108 H, Carbon Dioxide 28, Anion Gap 4.7 L, BUN 10 D, Creatinine 0.60 L, Estimated Creat Clear 60, Estimated GFR 132, Est GFR ( Amer) 160, Glucose 98, Calcium 8.1 L, Phosphorus 3.4, Magnesium 2.1, Total Bilirubin 0.4, AST 33 D, ALT 20, Alkaline Phosphatase 93, Total Protein 6.0 L, Albumin 2.5 L D, Globulin 3.5 H, Albumin/Globulin Ratio 0.7 L I & O for Labs for Last 24 Hours: Intake & Output 09/24/24 09/25/24 09/26/24 09/27/24 23:59 23:59 23:59 23:59 Intake Total 240 / 240 1826 / 2441 1585 / 1585 Output Total 725 / 725 0 / 0 Balance 240 / 240 1101 / 1716 1585 / 1585 Weight 63.458 kg 63.458 kg 63.049 kg Microbiology Reports for the Last 24 Hours: Microbiology 09/25/24 19:37 Urine,Clean Catch Urine Culture - Final No growth. Constitutional: Present no acute distress, average body habitus, disheveled and cooperative Head: Present atraumatic and normocephalic Respiratory: Present normal respiratory effort; Absent accessory muscle use, rhonchi, wheezes or crackles Cardiac: Present Reg Rate and Rhythm GI: Present soft and normal bowel sounds; Absent distention or tenderness Extremities: Present normal inspection and full ROM Skin: Present intact and erythema (Wound on left buttock; consistent with stage I decubitus with slight erythema of skin.) Neuro: Present Grossly Intact, alert, awake, oriented x 3 and moves all extremities Assessment and Plan *Assessment and plan (1) Adult failure to thrive: Status: Acute Category: Medical Code(s): R62.7 - Adult failure to thrive (2) Decubitus ulcer of buttock, stage 1: Status: Acute Category: Medical Code(s): L89.301 - Pressure ulcer of unspecified buttock, stage 1 (3) Chronic malnutrition: Status: Acute Category: Medical Code(s): E46 - Unspecified protein-calorie malnutrition (4) Self-care deficit: Status: Acute Category: Medical Code(s): Z78.9 - Other specified health status (5) MCI (mild cognitive impairment): Status: Acute Category: Medical Code(s): G31.84 - Mild cognitive impairment of uncertain or unknown etiology (6) Generalized weakness: Status: Acute Category: Medical Code(s): R53.1 - Weakness (7) Debility: Status: Acute Category: Medical Code(s): R53.81 - Other malaise Plan Mr. Refugio Jones is a 74-year-old male with a medical history significant for progressive debility, mild cognitive impairment, hypertension, chronic pain syndrome presents again from home for inability to care for himself after he was found at home in a dilapidated state, apparently has not walked in more than a week and dirt on him. Of note, he was admitted for similar presentation earlier this month and was recommended to be placed at a SNF, but patient declined and opted for home health. He states that his son and son-in-law occasionally take care of him at home and bring him food but he has not walked over the last 2 weeks. States he has been in pain all my life. He states the pain in his lower back and his legs and his feet have gotten to the point where he just cannot walk and is debilitated and weak. No injuries from his drug standpoint no acute change in the states it has been chronic. States he is able to sit up at the side of his bed and that his kids and sometimes his neighbor will bring him food. Has not had food in over 24 hours. Denies any other symptoms such as fevers chills etc. He does admit that he cannot care for himself at the moment. Children at the bedside yet. Per nursing staff he was found in feces and had cockroaches all over his body. Patient states that he is 75 pounds below his normal weight. Workup significant for WBC 14.4, platelet 826. CXR did not show acute findings. Case was discussed with ED provider and decision was made to admit patient for progressive physical debility and failure to thrive. Patient is open to being placed at a SNF. Awaiting placement. Continues to require inpatient management. #Self-care deficit #Progressive debility #Mild cognitive impairment #Severe protein malnutrition ? Unfortunately, due to patient's chronic pain syndrome he has had progressive physical debility and decline over the past months. He is unable to take care of himself at home. Would highly benefit from SNF and/or long-term assisted living. Patient states he is agreeable at this time. ? PT/OT consulted, recommend SNF placement. ? Case management consulted, pending recommendations. -Continue high-protein diet with supplementation -Wound consult placed for decubitus wound on left buttocks #Leukocytosis # Cellulitis ? Initial WBC 14.4, white count normalized at 8.3. Continue ceftriaxone 1 g daily for cellulitis of left buttocks. Hemoglobin dropped to 8.7 with fluid resuscitation. Repeat CBC, CMP, magnesium ordered for the morning. -Kidney function remains normal with BUN 10, creatinine 0.6. Magnesium 2.1 with potassium 3.7. #Hypertension ? Blood pressure normal, hold ARB #Chronic pain - Consider pain management consult like in last admission. ? Tylenol, Percocet 5mg q6h as needed for pain. monitor for toxicity Full code DVT prophylaxis: Lovenox 30 mg Regular diet with supplementation
[2024-09-27] MEDS: CEFTRIAXONE SODIUM 1 GM in 0.9 % SODIUM CHLORIDE 50 ML IV (14:07)
--- NOTE | 2024-09-27 15:58 | PC.NURSE ---
pt has remained alert and oriented and on room air this shift. pt has been c/o lt hip pain and has been medicated per DEC. MD aware of pain. pt has been repositioned throughout shift. pt has had no other complaints. pt is supposed to be placed at facility for care tomorrow. no new orders at this time. call light within reach.
[2024-09-27 16:00] VITALS: BP 139/53; PULSE 74; RESP 18; TEMP 36.8; O2SAT 97
[2024-09-27 18:37] VITALS: BMI 21.0
[2024-09-27 20:00] VITALS: BP 141/64; PULSE 78; RESP 16; TEMP 36.8; O2SAT 97
[2024-09-28] MEDS: OXYCODONE 5MG W/APAP 325MG TABLET 1 EACH PO ×2 (01:07→07:58)
[2024-09-28 04:00] VITALS: BP 126/62; PULSE 69; RESP 16; TEMP 36.5; O2SAT 98; BMI 21.9
[2024-09-28 07:19] LABS: Basophils % 0.6 % (0.1-2.0); Eosinophils # 0.3 K/mm3 (0.0-0.4); Eosinophils % 4.6 % (0.1-12.0); Hematocrit 26.9 % (42.0-52.0); Hemoglobin 8.5 g/dL (14.1-18.0); Lymphocytes # 2.6 K/mm3 (0.7-4.5); Lymphocytes % 34.6 % (10-50); Mean Corpuscular HGB Conc 31.8 g/dL (31.8-35.4); Mean Corpuscular Hemoglobin 29.6 pg (27.0-31.2); Mean Corpuscular Volume 93.2 fl (80-94); Mean Platelet Volume 8.2 fl (7.4-10.4); Monocytes # 0.5 K/mm3 (0.1-1.0); Monocytes % 7.2 % (1.7-9.3); Neutrophils # 3.9 K/mm3 (1.8-7.8); Platelet Count 719 K/mm3 (142-424); Red Blood Count 2.89 M/mm3 (4.60-6.20); Red Cell Distribution Width 15.7 % (11.5-17.5); White Blood Count 7.4 K/mm3 (4.8-10.8)
[2024-09-28 07:25] LABS: Alanine Aminotransferase 22 U/L (12-78); Albumin Level 2.4 g/dl (3.5-5.0); Albumin/Globulin Ratio 0.7 (1.1-1.8); Alkaline Phosphatase 84 U/L (38-126); Anion Gap 5.4 mEq/L (5-15); Aspartate Amino Transferase 41 U/L (17-59); Bilirubin,Total 0.2 mg/dl (0.2-1.3); Blood Urea Nitrogen 7 mg/dl (9-20); Carbon Dioxide 28 mmol/L (22.0-30.0); Chloride 108 mmol/L (98-107); Creatinine Clearance Estimated 62 mL/min (50-200); Estimated Glomerular Filt Rate 211 ml/min (>60); GFR (African American) 256 ML/MIN (>60); Globulin 3.3 g/dL (1.3-3.2); Glucose 87 mg/dl (74-100); Magnesium 1.9 mg/dl (1.6-2.3); Phosphorous 3.5 mg/dl (2.5-4.5); Potassium 3.4 mmoL/L (3.5-5.1); Sodium 138 mmol/L (136-145); Total Protein,Serum 5.7 g/dl (6.3-8.2)
[2024-09-28 08:00] VITALS: BP 135/71; PULSE 84; RESP 18; TEMP 36.9; O2SAT 98
[2024-09-28] MEDS: ENOXAPARIN 40MG/0.4ML SYRINGE 40 MG SUBCUT (08:00)
[2024-09-28] MEDS: SERTRALINE 50MG TABLET 25 MG PO (08:00)
--- NOTE | 2024-09-28 09:09 | SW/DCPLANNER ---
Addendum entered by Mary Barnes 09/28/24 13:19: Patient's brother in law (George) is at bedside to transport patient home. Patient has refused home health services at this time. Addendum entered by Mary Barnes 09/28/24 11:45: Due to not being able to get in contact w/ patient or family I have made contact w/ [facility] to go to patient's home to make contact w/ family members. Original Note: I spoke w/ this patient regarding plans once medically stable for discharge. PT/OT evaluated patient and recommended SNF level of care at time of discharge. Per MD patient was agreeable to placement over the weekend. However, patient is now refusing placement stating that he will return home at time of discharge. Patient is unsure if he is willing to accept home health services. I will continue to follow up w/ this patient until medically stable for discharge.
[2024-09-28] MEDS: ACETAMINOPHEN 325MG TAB 650 MG PO (10:52)
[2024-09-28] MEDS: MAGNESIUM SULFATE IN WATER 2 GM/50 ML PIGGYBACK IV (11:43)
[2024-09-28] MEDS: POTASSIUM CHLORIDE 20MEQ TAB 40 MEQ PO (11:43)
--- NOTE | 2024-09-28 11:57 | HMH.OTEV ---
OT Inpatient Evaluation Rehab OT IP Evaluation Start: 09/26/24 00:10 Freq: ONCE Status: Active Protocol: Document 09/28/24 11:52 [email or web address] (Rec: 09/28/24 11:57 MIKE [id number]) Rehab OT IP Assessment Subjective History Mr. Refugio Jones is a 74-year- old male with a medical history significant for progressive debility, mild cognitive impairment, hypertension, chronic pain syndrome presents again from home for inability to care for himself after he was found at home in a dilapidated state, apparently has not walked in more than a week and dirt on him. Of note, he was admitted for similar presentation earlier this month and was recommended to be placed at a SNF, but patient declined and opted for home health. He states that his son and son-in -law occasionally take care of him at home and bring him food but he has not walked over the last 2 weeks. States he has been in pain all my life. He states the pain in his lower back and his legs and his feet have gotten to the point where he just cannot walk and is debilitated and weak. No injuries from his drug standpoint no acute change in the states it has been chronic. States he is able to sit up at the side of his bed and that his kids and sometimes his neighbor will bring him food. Has not had food in over 24 hours. Denies any other symptoms such as fevers chills etc. He does admit that he cannot care for himself at the moment. Children at the bedside yet. Per nursing staff he was found in feces and had cockroaches all over his body. Patient states that he is 75 pounds below his normal weight. Workup significant for WBC 14. 4, platelet 826. CXR did not show acute findings. Case was discussed with ED provider and decision was made to admit patient for progressive physical debility and failure to thrive. Patient is open to being placed at a SNF. Subjective I can get up. Instructed patient on proper hand and foot placement to complete sit->stand, ambulation and LB Drsg. Patient was incontinent of bladder mgt tr and was unaware until OT consulted with him. Patient stated, Oh yeah. I knew that. Patient required Min A For TB drsg and Mod A For brief change. Patient maneuver within facility with usage of RW ~75ft with CGA for safety. Objective Patient Orientation Person,Name,Birthday Right Upper Extremity Gross ROM WFL Left Upper Extremity Gross ROM WFL Transfer Training Sit/Stand/Step Transfer,Sit/ Stand/Pivot Transfer Assist Level Contact Guard/Hand Hold Chair Transfer Ability Minimal x 1 (25% assist) Chair Transfer Technique Sit to/from Ambulatory Chair Transfer Assistive Devices Rolling Walker Lower Body Dressing Ability Minimal Assistance Performing Toilet Hygiene Ability Moderate Assistance Rehab OT IP prob,goals,plan Problems Date of Evaluation: 09/28/24 OT IP Problems Bed Mobility,Transfers,Gait, Balance,Self care,Safety Rehab Potential Rehab Potential Good Equipment Needs Assistive Devices Rolling / Wheeled Walker Plan OT intervention Plan Bed Mobility,Transfers,Balance ,Self care,Safety,Therapeutic Exercise OT Plan Frequency Daily Discharge Goals Sit to Stand Chair Transfer Ability Supervision/Stand by Chair Transfer Ability Supervision/Stand by Chair Transfer Technique Sit to/from Ambulatory Chair Transfer Assistive Devices Rolling Walker Lower Body Dressing Ability Minimal Assistance Performing Toilet Hygiene Ability Minimal Assistance Discharge Plan OT Discharge Plan Recommend placement due to poor safety awareness and inability to clean self up after being incontinent ( unaware). Patient to be [facility] at [facility] OP IT services while here. Eval Complexity Eval Charge Codes 46065 - Low Complexity PHYSICIAN CERTIFICATION: I certify the specified therapy services for Refugio Jones are required, authorized, and reviewed every 30 days.
--- NOTE | 2024-09-28 13:16 | P.DS_ITS ---
General Admission date:: 09/25/24 Discharge date: 09/28/24 HPI HPI HPI: Mr. Refugio Jones is a 74-year-old male with a medical history significant for progressive debility, mild cognitive impairment, hypertension, chronic pain syndrome presents again from home for inability to care for himself after he was found at home in a dilapidated state, apparently has not walked in more than a week and dirt on him. Of note, he was admitted for similar presentation earlier this month and was recommended to be placed at a SNF, but patient declined and opted for home health. He states that his son and son-in-law occasionally take care of him at home and bring him food but he has not walked over the last 2 weeks. States he has been in pain all my life. He states the pain in his lower back and his legs and his feet have gotten to the point where he just cannot walk and is debilitated and weak. No injuries from his drug standpoint no acute change in the states it has been chronic. States he is able to sit up at the side of his bed and that his kids and sometimes his neighbor will bring him food. Has not had food in over 24 hours. Denies any other symptoms such as fevers chills etc. He does admit that he cannot care for himself at the moment. Children at the bedside yet. Per nursing staff he was found in feces and had cockroaches all over his body. Patient states that he is 75 pounds below his normal weight. Workup significant for WBC 14.4, platelet 826. CXR did not show acute findings. Case was discussed with ED provider and decision was made to admit patient for progressive physical debility and failure to thrive. Patient is open to being placed at a SNF. Hospital Course Hospital Course Hospital Course: Mr. Refugio Jones is a 74-year-old male with a medical history significant for progressive debility, mild cognitive impairment, hypertension, chronic pain syndrome presents again from home for inability to care for himself after he was found at home in a dilapidated state, apparently has not walked in more than a week and dirt on him. Of note, he was admitted for similar presentation earlier this month and was recommended to be placed at a SNF, but patient declined and opted for home health. He states that his daughter and son-in-law occasionally take care of him at home and bring him food but he has not walked over the last 2 weeks. States he has been in pain all my life. He states the pain in his lower back and his legs and his feet have gotten to the point where he just cannot walk and is debilitated and weak. No injuries from his drug standpoint no acute change in the states it has been chronic. States he is able to sit up at the side of his bed and that his kids and sometimes his neighbor will bring him food. Has not had food in over 24 hours. Denies any other symptoms such as fevers chills etc. He does admit that he cannot care for himself at the moment. Initial attempts to work on placement, patient was agreeable to. After he began feeling better, patient changed his mind on placement and stated he was not going to a retirement. He wanted to go home. He had improvement in his ambulation. Was independent with a walker. Overall doing better. Stable to discharge, son-in-law picked him up patient discharged home in stable condition. High risk for readmission given patient's progressive debility. Problems addressed as follows: #Self-care deficit #Progressive debility #Mild cognitive impairment #Severe protein malnutrition ? Unfortunately, due to patient's chronic pain syndrome he has had progressive physical debility and decline over the past months. He he has difficulty caring for himself. Does have family that assist him. Has improved during admission. Stable to discharge home with further assistance. Ambulating independently with walker. Case management assisted with care, as patient has decided he does not want to go to a nursing facility, commendations were made to discharge him home with home health. Tolerating p.o. intake. Encouraged high-protein diet. #Leukocytosis # Cellulitis ? Initial WBC 14.4, white count normalized at 8.3. Initiated on ceftriaxone due to cellulitis of left buttock, cellulitis improving. Transition to Keflex to complete course for cellulitis. Counseled family on need for patient to move regularly to decrease risk for further progression of decubitus wound. #Hypertension: Blood pressure normal, hold ARB #Chronic pain: Pain management consulted previous visit, adjustments made to pain pump. No further adjustments at this time. Was adamant that he would go home. Therapy worked with him, he was able to get up with minimal assistance and ambulate around the floor using walker well over 100 feet. Stable to discharge home with home health. Total time spent on discharge 32 minutes in counseling, documentation, chart review, and direct care with patient. Exam Data for Last 24 hours Vital signs and Labs for Last 24 Hours: Temp Pulse Resp BP Pulse Ox O2 Del Method 98.4 F 84 18 135/71 98 Room Air 09/28/24 08:00 09/28/24 08:00 09/28/24 08:00 09/28/24 08:00 09/28/24 08:00 09/28/24 10:43 Laboratory Results - last 24 hr 09/28/24 06:22: WBC 7.4, RBC 2.89 L, Hgb 8.5 L, Hct 26.9 L, MCV 93.2, MCH 29.6, MCHC 31.8, RDW 15.7, Plt Count 719 H, MPV 8.2, Neut % (Auto) 53.0, Lymph % (Auto) 34.6, [place] % (Auto) 7.2, Eos % (Auto) 4.6, Baso % (Auto) 0.6, Neut # (Auto) 3.9, Lymph # (Auto) 2.6, [place] # (Auto) 0.5, Eos # (Auto) 0.3, Baso # (Auto) 0.0, Sodium 138, Potassium 3.4 L, Chloride 108 H, Carbon Dioxide 28, Anion Gap 5.4, BUN 7 L D, Creatinine 0.40 L D, Estimated Creat Clear 62, Estimated GFR 211, Est GFR ( Amer) 256 D, Glucose 87, Calcium 8.0 L, Phosphorus 3.5, Magnesium 1.9, Total Bilirubin 0.2, AST 41, ALT 22, Alkaline Phosphatase 84, Total Protein 5.7 L, Albumin 2.4 L, Globulin 3.3 H, Albumin/Globulin Ratio 0.7 L I & O for Last 24 hours: Intake & Output 09/25/24 09/26/24 09/27/24 09/28/24 23:59 23:59 23:59 23:59 Intake Total 240 / 240 1826 / 2441 3445 / 3445 1680 / 1680 Output Total 725 / 725 0 / 0 0 / 0 Balance 240 / 240 1101 / 1716 3445 / 3445 1680 / 1680 Weight 63.458 kg 63.458 kg 63.049 kg 65.544 kg Constitutional Constitutional: no acute distress, average body habitus, chronically ill appearing and cooperative *Routine HEENT Exam Head: Present normocephalic Eye: Present EOMI and PERRL ENT: Present mucous membranes moist Comments: edentulous *Routine Neck Exam Neck: Present supple; Absent lymphadenopathy *Routine Respiratory Exam Respiratory: Present CTA bilaterally; Absent rhonchi, wheezes or crackles *Routine Cardiovascular Exam Cardiovascular: Present RRR *Routine Abdominal Exam Abdominal: Present soft and normoactive bowel sounds; Absent tenderness *Routine Rectal Exam Patient deferred: visual exam *Routine Exam Patient deferred: penile exam *Routine Extremities Exam Extremities: Absent cyanosis, clubbing or edema *Routine Skin Exam Skin: Present intact and warm; Absent rash *Routine Neurological Exam Neurological: Present alert, oriented X3 and moving all extremities; Absent altered mental status Results Data Completed and Pending Labs on day of discharge: Labs from last 24 hours 09/28/24 06:22 WBC 7.4 RBC 2.89 L Hgb 8.5 L Hct 26.9 L MCV 93.2 MCH 29.6 MCHC 31.8 RDW 15.7 Plt Count 719 H MPV 8.2 Neut % (Auto) 53.0 Lymph % (Auto) 34.6 [place] % (Auto) 7.2 Eos % (Auto) 4.6 Baso % (Auto) 0.6 Neut # (Auto) 3.9 Lymph # (Auto) 2.6 [place] # (Auto) 0.5 Eos # (Auto) 0.3 Baso # (Auto) 0.0 Sodium 138 Potassium 3.4 L Chloride 108 H Carbon Dioxide 28 Anion Gap 5.4 BUN 7 L D Creatinine 0.40 L D Estimated Creat Clear 62 Estimated GFR 211 Est GFR ( Amer) 256 D Glucose 87 Calcium 8.0 L Phosphorus 3.5 Magnesium 1.9 Total Bilirubin 0.2 AST 41 ALT 22 Alkaline Phosphatase 84 Total Protein 5.7 L Albumin 2.4 L Globulin 3.3 H Albumin/Globulin Ratio 0.7 L DS: Diagnosis Discharge Diagnosis (1) Adult failure to thrive: Status: Acute Code(s): R62.7 - Adult failure to thrive (2) Decubitus ulcer of buttock, stage 1: Status: Acute Code(s): L89.301 - Pressure ulcer of unspecified buttock, stage 1 (3) Chronic malnutrition: Status: Acute Code(s): E46 - Unspecified protein-calorie malnutrition (4) Self-care deficit: Status: Acute Code(s): Z78.9 - Other specified health status (5) MCI (mild cognitive impairment): Status: Acute Code(s): G31.84 - Mild cognitive impairment of uncertain or unknown etiology (6) Generalized weakness: Status: Acute Code(s): R53.1 - Weakness (7) Debility: Status: Acute Code(s): R53.81 - Other malaise Meds Home Medications and Allergies Home Medications ?Medication ?Instructions ?Recorded ?Confirmed ?Type morphine (PF) 1 mg/mL injection 1 mg epidural CONT 11/07/23 09/26/24 History solution sertraline 25 mg tablet 25 mg PO DAILY 09/04/24 09/26/24 History cephalexin 500 mg capsule 500 mg PO BID 5 days #10 caps 09/28/24 Rx New Prescriptions to Start Prescriptions: George Esparza Allergies Allergy/AdvReac Type Severity Reaction Status Date / Time No Known Allergies Allergy Unverified 09/26/24 08:45 Discharge Plan Disposition Patient Disposition: Home, Self-Care Condition: Fair Follow up Plan Follow up with: Senia Espinoza APRN [Primary Care Provider] - 10/05/24 9:30 am Prescriptions/Medication Reconciliation: New cephalexin 500 mg capsule 500 mg PO BID 5 Days Qty: 10 0RF Continued sertraline 25 mg Tablet 25 mg PO DAILY morphine (PF) 1 mg/mL Solution 1 mg epidural CONT Discontinued losartan 25 mg Tablet 25 mg PO DAILY Problem Reconciliation Problems Reviewed?: Yes Patient Discharge Instructions ACTIVITY: Continue current activity DIET: continue same diet Patient Instructions: DI for Failure to Thrive Print Language: Belarusian Providers Primary Care Provider: Senia Espinoza Admit Provider: Rocael [place] Attending Provider: Rocael Colorado
--- NOTE | 2024-09-30 10:47 | SW/DCPLANNER ---
Called patient x2 and each time patient's voicemail is not sat up. Clementina HYMAN Editorial Specialist
== END 2024-09-28 13:55 | disposition home or self-care (01) ==
LOC: ER 15:54 → 2ND 17:56
PROVIDERS: Admitting Provider Student in an Organized Health Care Education/Training Program; Emergency Provider Student in an Organized Health Care Education/Training Program; PCP Nurse Practitioner Family; Visit Provider Student in an Organized Health Care Education/Training Program
DX: R62.7 Adult failure to thrive (principal); G31.84 Mild cognitive impairment of uncertain or unknown etiology; E43 Unspecified severe protein-calorie malnutrition; R53.1 Weakness; R53.81 Other malaise; L89.301 Pressure ulcer of unspecified buttock, stage 1; Z59.41 Food insecurity; Z74.01 Bed confinement status; Z60.2 Problems related to living alone; Z68.21 Body mass index [BMI] 21.0-21.9, adult; Z59.19 Other inadequate housing; Z74.1 Need for assistance with personal care; Z97.8 Presence of other specified devices
CPT/HCPCS: 36415; 71045; 80053; 81001; 82550; 83605; 83735; 83880; 84100; 84443; 84484; 85025; 87086; 93005; 97161; 97165; 97530; 99285; G0378; J0131; J0696; J1650; J3475; J7030; J7120

== ENCOUNTER 2024-10-06 10:27 | Observation (INO) | payer MEDICARE, SELFPAY ==
[2024-10-06] VITALS (8 sets, daily range): BP systolic 121–152; BP diastolic 69–92; PULSE 78–93; RESP 12–17; TEMP 36.8–37.1; O2SAT 96–99; BMI 21.7; BMI 21.2
--- NOTE | 2024-10-06 10:53 | CT_ITS ---
FINAL REPORT TECHNIQUE: Axial images through the pelvis were performed by computed tomography. This study was performed with techniques to keep radiation doses as low as reasonably achievable, (ALARA). Individualized dose reduction techniques using automated exposure control or adjustment of mA and/or kV according to the patient's size were employed. CLINICAL HISTORY: AMS, severe back pain, failure to thrive FINDINGS: There are postoperative changes of the upper pelvis with screws. There are postoperative changes of the left femur. There are chronic left superior/inferior pubic rami fractures. The bones are osteopenic. There are degenerative changes of both hips, right worse than left. There are postoperative changes of the rectosigmoid colon. IMPRESSION: Degenerative and postoperative changes without acute bony abnormality. Reviewed, Interpreted and Dictated by Lorne Lanier III, MD Transcribed by Holly Garcia Authenticated and [facility]
--- NOTE | 2024-10-06 10:53 | CT_ITS ---
FINAL REPORT CLINICAL HISTORY: AMS, severe back pain, failure to thrive FINDINGS: Axial CT images of the cervical spine were obtained without contrast. Sagittal and coronal reformatted images were also obtained. This study was performed with techniques to keep radiation doses as low as reasonably achievable (ALARA). Individualized dose reduction techniques using automated exposure control or adjustment of mA and/or kV according to the patient's size were employed. There is no evidence of fracture or dislocation. There is fusion of C5-6. There are moderate degenerative changes with osteophytes. There is mild retrolisthesis of C4 on 5. Multilevel neuroforaminal narrowing is identified. There is mild multilevel central canal stenosis. There is mild anterolisthesis of C7 on T1. IMPRESSION: Multilevel degenerative disc disease as discussed above. No acute bony abnormality. Reviewed, Interpreted and Dictated by Lorne Lanier III, MD Transcribed by Holly Garcia Authenticated and . [facility]
--- NOTE | 2024-10-06 10:53 | CT_ITS ---
FINAL REPORT TECHNIQUE: Axial images were performed through the lumbar spine by computed tomography. Sagittal reconstruction images were also performed. This study was performed with techniques to keep radiation doses as low as reasonably achievable, (ALARA). Individualized dose reduction techniques using automated exposure control or adjustment of mA and/or kV according to the patient''s size were employed. CLINICAL HISTORY: AMS, severe back pain, failure to thrive COMPARISON: 05/19/2024 FINDINGS: Patient is status post fusion of L4-5. There is a moderate chronic L1 compression fracture with 40% loss of anterior height. Finding is stable since the prior. There are multilevel severe degenerative changes with multilevel neuroforaminal narrowing and vacuum phenomenon. There is mild retrolisthesis of L2 on 3. There is mild central canal stenosis at L2-3 and L3-4. Vascular calcification is identified. There are postoperative changes in the pelvis. IMPRESSION: Multilevel degenerative changes without acute bony abnormality. Reviewed, Interpreted and Dictated by Lorne Lanier III, MD Transcribed by Holly Garcia Authenticated and [facility]
--- NOTE | 2024-10-06 10:53 | CT_ITS ---
FINAL REPORT CLINICAL HISTORY: AMS, severe back pain, failure to thrive FINDINGS: Axial images of the head were obtained without contrast. Coronal reformatted images were also obtained. This study was performed with techniques to keep radiation doses as low as reasonably achievable (ALARA). Individualized dose reduction techniques using automated exposure control or adjustment of mA and/or kV according to the patient's size were employed. There is generalized age-appropriate atrophy. Periventricular low-attenuation areas are seen consistent with moderate chronic ischemic changes. There is no evidence of intracranial hemorrhage or mass. There is no evidence of acute infarct. There are several chronic periventricular lacunar infarcts. There is no evidence of shift of the midline structures. No skull abnormality is seen on the bone window images. IMPRESSION: Atrophy and moderate periventricular chronic ischemic changes. No acute intracranial abnormality identified. Reviewed, Interpreted and Dictated by Lorne Lanier III, MD Transcribed by Gavi Ba Authenticated and [facility]
--- NOTE | 2024-10-06 10:53 | CT_ITS ---
FINAL REPORT CLINICAL HISTORY: AMS, severe back pain, failure to thrive FINDINGS: Axial CT images of the thoracic spine were obtained without contrast. Sagittal and coronal reformatted images were also obtained. This study was performed with techniques to keep radiation doses as low as reasonably achievable (ALARA). Individualized dose reduction techniques using automated exposure control or adjustment of mA and/or kV according to the patient's size were employed. Mild and moderate degenerative changes are noted. There are multilevel osteophytes. A spinal stimulator is noted. There is no evidence of fracture. The vertebral alignment is normal. There is no evidence of significant canal stenosis. No paraspinous soft tissue abnormality is identified. IMPRESSION: No fracture or acute bony abnormality. No significant central canal stenosis. Reviewed, Interpreted and Dictated by Lorne Lanier III, MD Transcribed by Gavi Ba Authenticated and [facility]
--- NOTE | 2024-10-06 10:55 | CT_ITS ---
FINAL REPORT TECHNIQUE: Postcontrast axial images through the abdomen and pelvis were performed. This study was performed with techniques to keep radiation doses as low as reasonably achievable, (ALARA). Individualized dose reduction techniques using automated exposure control or adjustment of mA and/or kV according to the patient's size were employed. CLINICAL HISTORY: diarrhea, back pain, failure to thrive FINDINGS: Abdomen: There is mild scarring in the lung bases. There is mild wall thickening of the distal thoracic esophagus. The liver is normal in size and attenuation. Patient is status postcholecystectomy. 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 There is a small hiatal hernia. The adrenals are normal. The pancreas is unremarkable. The kidneys enhance appropriately. The aorta is normal in caliber. No free fluid or adenopathy is identified. There are postoperative changes in the anterior abdomen and pelvic wall. Pelvis: The appendix is not identified. The urinary bladder is unremarkable. No free fluid, free air, abscess or adenopathy is identified. IMPRESSION: Post surgical changes as above. Mild wall thickening of the distal thoracic esophagus. Reviewed, Interpreted and Dictated by Lorne Lanier III, MD Transcribed by Holly Garcia Authenticated and . [facility]
--- NOTE | 2024-10-06 10:55 | XR_ITS ---
FINAL REPORT CLINICAL HISTORY: AMS, gen weakness FINDINGS: SINGLE VIEW CHEST The heart is normal in size. The mediastinum is unremarkable. The lungs are clear. There is no pneumothorax. IMPRESSION: No acute process. Reviewed, Interpreted and Dictated by Lorne Lanier III, MD Transcribed by Holly Garcia Authenticated and [facility]
[2024-10-06 11:02] LABS: Basophils # 0.1 K/mm3 (0-0.2); Basophils % 0.7 % (0.1-2.0); Eosinophils # 0.1 K/mm3 (0.0-0.4); Eosinophils % 0.6 % (0.1-12.0); Hematocrit 31.3 % (42.0-52.0); Lymphocytes # 3.3 K/mm3 (0.7-4.5); Lymphocytes % 29.2 % (10-50); Mean Corpuscular HGB Conc 32.1 g/dL (31.8-35.4); Mean Corpuscular Volume 90.5 fl (80-94); Mean Platelet Volume 8.2 fl (7.4-10.4); Monocytes # 0.7 K/mm3 (0.1-1.0); Monocytes % 5.8 % (1.7-9.3); Neutrophils # 7.2 K/mm3 (1.8-7.8); Neutrophils % 63.9 % (37.0-80.0); Platelet Count 770 K/mm3 (142-424); Red Blood Count 3.46 M/mm3 (4.60-6.20); Red Cell Distribution Width 16.1 % (11.5-17.5); White Blood Count 11.2 K/mm3 (4.8-10.8)
--- NOTE | 2024-10-06 11:03 | ECG_ITS ---
APPROVED REPORT Exam: Resting ECG HR:90 bpm ECG Measurements Heart Rate 90 AXES NE 142 P 78 QRSd 89 QRS 55 QT 365 T 76 QTc 413 Conclusion SINUS RHYTHM WITH OCCASIONAL ECTOPIC PREMATURE COMPLEXES BORDERLINE ECG Electronically signed by : BRIAN FINCH, 10/07/2024 16:07:04
[2024-10-06 11:04] LABS: Albumin Level 2.9 g/dl (3.5-5.0); Chloride 102 mmol/L (98-107); Potassium 4.1 mmoL/L (3.5-5.1); Sodium 135 mmol/L (136-145)
[2024-10-06 11:07] LABS: Alanine Aminotransferase 65 U/L (12-78); Albumin/Globulin Ratio 0.7 (1.1-1.8); Alkaline Phosphatase 124 U/L (38-126); Anion Gap 8.1 mEq/L (5-15); Aspartate Amino Transferase 116 U/L (17-59); Bilirubin,Total 0.7 mg/dl (0.2-1.3); Blood Urea Nitrogen 12 mg/dl (9-20); Carbon Dioxide 29 mmol/L (22.0-30.0); Creatinine Clearance Estimated 58 mL/min (50-200); Estimated Glomerular Filt Rate 132 ml/min (>60); GFR (African American) 160 ML/MIN (>60); Globulin 3.9 g/dL (1.3-3.2); Total Protein,Serum 6.8 g/dl (6.3-8.2)
[2024-10-06 11:08] LABS: Calcium 8.5 mg/dl (8.4-10.2); Creatine Kinase < 20 U/L (55-170); Glucose 116 mg/dl (74-100)
[2024-10-06 11:12] LABS: Activated Partial Thrombo Time 28.8 seconds (22.8-30.6); INR 1.07 (0.9-1.1); Prothrombin Time 11.9 seconds (10.1-12.5)
[2024-10-06 11:14] LABS: Lactate Venous 2.3 mmol/L (0.4-2.0); VBG Base Excess 3.6 mmol/L (-2.4-2.3); VBG Oxygen Saturation 99.4 % (50-70); VBG PCO2 36.4 mmol/L (35-51); VBG PH 7.49 mmol/L (7.31-7.41); VBG PO2 149.4 mmol/L (28-40); VBG Total CO2 28.1 mmol/L (23-27)
[2024-10-06 11:24] LABS: Troponin I < 0.01 ng/ml (0.00-0.034)
[2024-10-06] MEDS: IOPAMIDOL-370 (76%);100ML BOTTLE 75 ML IV (11:28)
[2024-10-06] MEDS: SODIUM CHLORIDE 0.9% 10ML SYR (RAD ONLY) 10 ML IV (11:28)
[2024-10-06 11:38] LABS: Thyroid Stimulating Hormone 2.36 uIU/mL (0.465-4.68)
--- NOTE | 2024-10-06 11:41 | ED_ITS ---
Discharge Plan Disposition Chief Complaint: Recheck/Abnormal Lab/Rx Clinical Impressions Clinical Impression: General weakness, Debility, Esophageal thickening, Chronic back pain Discharge ED Provider: Gia Baziz General Adult HPI General Chief complaint: Recheck/Abnormal Lab/Rx Stated complaint: failure to thrive Time Seen by Provider: 10/06/24 10:28 Mode of Arrival: EMS Source of Information: Patient Limitations: No Limitations Description of Symptoms (Recalled from ER Triage Doc. by RN): pt presents to ED with failure to thrive. pt lives at home with his son who does not help patient with activites of daily living. pt reports that his son called 911 today because the patient had a bowel movement and the son did not want to clean dex up. pt reports that son does not want to help take care of him and only wants his money, APS report filed. pt was found upon arrival by EMS covered in urine and feces. History of Present Illness HPI narrative: This patient is a 74-year-old male with a history of chronic protein calorie malnutrition, inability to care for himself, prior history of L1 vertebral fracture, iron deficiency anemia, cognitive impairment, BPH, general debility, GERD, carotid stenosis, hypertension, and hyperlipidemia presenting to the emergency department for evaluation with concern for failure to thrive. According to EMS, they were called to the home because relative at home noted he had a bowel movement on himself and they could not clean him up. According to EMS, the patient was found covered in feces and urine in deplorable conditions. Patient states to us that Garrett takes care of him and only keeps him around for his money, not wanting to clean him up. Patient complains of low back pain but denies any other concerns or complaints at this time. He is alert and oriented to person and place but not time. On medical record review, he has been admitted multiple times over the last several months for dehydration and failure to thrive. They attempted to place him in a fci on last admission which was 09/25/2024, but patient refused and ended up going home. According to care management, they had to call the sql report writer's department to get Garrett to come pick him up. Related Data Home Medications ?Medication ?Instructions ?Recorded ?Confirmed morphine (PF) 1 mg/mL injection 1 mg epidural CONT 11/07/23 09/26/24 solution sertraline 25 mg tablet 25 mg PO DAILY 09/04/24 09/26/24 Allergies Allergy/AdvReac Type Severity Reaction Status Date / Time No Known Allergies Allergy Unverified 09/26/24 08:45 [facility] Disclaimer: The information contained in this section may have been updated after the patient was seen, as this information can be updated by other users. Medical History Screening for colon cancer Abdominal pain Posture abnormality Diarrhea Lumbar degenerative disc disease Peritonitis Urinary incontinence Bee sting reaction Anxiety Low vitamin B12 level Adjustment disorder Acute sinusitis Acute bronchitis Acute exacerbation of chronic obstructive pulmonary disease Rib injury BPH (benign prostatic hyperplasia) Asthma Hypertension Acute exacerbation of chronic low back pain Bronchitis Exposure to COVID-19 virus Sinusitis Carotid artery stenosis Asthma GERD (gastroesophageal reflux disease) History of DVT (deep vein thrombosis) HLD (hyperlipidemia) HTN (hypertension) Radiculopathy Neck pain Finger laceration Otitis media Pneumonia Lumbar radiculopathy Surgical History S/P exploratory laparotomy Hx of colonoscopy History of colectomy History of elbow surgery History of surgery on lower extremity History of splenectomy History of back surgery Family History Other No significant family history Social History Smoking Status: Former smoker second hand exposure: No alcohol intake: never substance use type: denies use current occupational status: retired Travel in the last 8 weeks: None housing: house caffeine: Yes Other Medical History Have you received the Flu Vaccine for this season: No Have you received the Pneumonia Vaccine: No ROS Obtained: Yes All systems reviewed & no additional complaints except as documented Physical Exam General General appearance: alert Comment: Thin, frail. Covered in his own feces and urine. Disheveled. Head Head exam: atraumatic and normocephalic Eye Eye exam: Present normal appearance, PERRL and EOMI ENT ENT exam: Present normal exam, normal oropharynx, mucous membranes moist and normal external ear exam Neck Neck exam: Present normal inspection, full ROM and trachea midline; Absent tenderness Chest Chest inspection: Present normal inspection and symmetric chest wall rise; Absent tenderness Respiratory Respiratory exam: Present normal lung sounds bilaterally; Absent respiratory distress, wheezes, stridor or accessory muscle use Cardiovascular Cardiovascular exam: Present regular rate and normal rhythm Abdominal Exam Abdominal exam: Present soft; Absent distention, tenderness, guarding or rebound Extremities Exam Extremities exam: Present normal inspection, full ROM and normal capillary refill; Absent tenderness or edema Back Exam Back exam: Present full ROM and tenderness (low back) Neurological Exam Neurological exam: Present alert and CN II-XII intact; Absent oriented X3 or motor sensory deficit Psychiatric Psychiatric exam: Present normal affect and normal mood Skin Skin exam: Present warm and dry Medical Decision Making Medical Records Medical records reviewed: Yes I reviewed the patient's medical records. Screening: Per USPSTF and CDC recommendations, given the prevalence of disease in our region, it is our hospital?s policy to screen for HIV and viral Hepatitis for all patients aged 18 and over and those with ongoing risk factors. Siva Inquiry Pt receiving controlled substance: No Vital Signs: 10/06/24 10:27 10/06/24 10:30 10/06/24 11:00 Temperature 98.8 F Temperature Source Oral Pulse Rate 91 H 91 H Pulse Rate [Left Radial] 93 H Respiratory Rate 16 12 16 Blood Pressure 139/88 152/92 H Blood Pressure [Right Arm] 138/88 Blood Pressure Mean [Right Arm] 104 Blood Pressure Source 02 Sat by Pulse Oximetry 99 96 97 Oxygen Delivery Method Room Air Room Air Room Air 10/06/24 12:00 10/06/24 15:59 Temperature 98.6 F Temperature Source Oral Pulse Rate 88 78 Pulse Rate [Left Radial] Respiratory Rate 17 17 Blood Pressure 148/82 H 121/69 Blood Pressure [Right Arm] Blood Pressure Mean [Right Arm] Blood Pressure Source Automatic Cuff 02 Sat by Pulse Oximetry 97 Oxygen Delivery Method Room Air Lab Data Lab results reviewed: Yes I reviewed the patient's lab results. Lab Results 10/06/24 09:45: WBC 11.2 H, RBC 3.46 L, Hgb 10.0 L, Hct 31.3 L, MCV 90.5, MCH 29.0, MCHC 32.1, RDW 16.1, Plt Count 770 H, MPV 8.2, Neut % (Auto) 63.9, Lymph % (Auto) 29.2, [place] % (Auto) 5.8, Eos % (Auto) 0.6, Baso % (Auto) 0.7, Neut # (Auto) 7.2, Lymph # (Auto) 3.3, [place] # (Auto) 0.7, Eos # (Auto) 0.1, Baso # (Auto) 0.1, PT 11.9, INR 1.07, APTT 28.8, Sodium 135 L, Potassium 4.1, Chloride 102, Carbon Dioxide 29, Anion Gap 8.1, BUN 12, Creatinine 0.60 L, Estimated Creat Clear 58, Estimated GFR 132, Est GFR ( Amer) 160, Glucose 116 H, Calcium 8.5, Total Bilirubin 0.7, AST 116 H, ALT 65, Alkaline Phosphatase 124, T otal Creatine Kinase < 20 L, Troponin I < 0.01, Total Protein 6.8, Albumin 2.9 L , Globulin 3.9 H, Albumin/Globulin Ratio 0.7 L, TSH 2.36, Thyroxine (T4) 6.0 10/06/24 10:53: VBG pH 7.49 H, VBG pCO2 36.4, VBG pO2 149.4 H, VBG HCO3 27.0, V BG Total CO2 28.1 H, VBG O2 Saturation 99.4 H, VBG Base Excess 3.6 H, VBG Lactic Acid 2.3 H 10/06/24 12:25: Urine Color Yellow, Urine Appearance Clear, Urine pH 7.5, Ur Specific Rupert 1.015, Urine Protein Trace, Urine Glucose (UA) Negative, Urine Ketones Negative, Urine Blood Negative, Urine Nitrate Negative, Urine Bilirubin Negative, Urine Urobilinogen >=8.0, Ur Leukocyte Esterase Negative, Urine RBC None, Urine WBC None, Ur Squamous Epith Cells Occasional, Urine Bacteria Trace 10/06/24 14:19: Troponin I < 0.01 10/06/24 15:20: Lactate 1.1 10/06/24 09:45 10/06/24 09:45 Orders (Tests/Meds): ED MEDICATIONS Generic Name Dose Route Start Last Admin Trade Name Freq PRN Reason Stop Dose Admin Sodium Chloride 10 ml 10/06/24 11:27 10/06/24 11:28 Sodium Chloride 0.9% 10ml Syr (Rad Only) IV 11/05/24 11:26 10 ml NEEDED PRN Administration Maintain IV Site Discontinued Medications Generic Name Dose Route Start Last Admin Trade Name Freq PRN Reason Stop Dose Admin Acetaminophen 1,000 mg 10/06/24 12:31 10/06/24 12:34 Acetaminophen 1,000mg/100ml Vial IV 10/06/24 12:32 1,000 mg ONCE ONE Administration Iopamidol 75 ml 10/06/24 11:27 10/06/24 11:28 Iopamidol-370 (76%);100ml Bottle IV 10/06/24 11:28 75 ml ONCE ONE Administration Ketorolac Tromethamine 15 mg 10/06/24 12:31 10/06/24 12:34 Ketorolac 30mg/Ml Vial IV 10/06/24 12:32 15 mg ONCE ONE Administration Pantoprazole Sodium 40 mg 10/06/24 13:50 10/06/24 14:13 Pantoprazole 40mg Tablet PO 10/06/24 13:51 40 mg ONCE ONE Administration ORDERS Category Date Time Status CT abdomen pelvis w con Stat Cat Scan 10/06/24 10:[address] bony pelvis Stat Cat Scan 10/06/24 10:[address] cervical spine wo con Stat Cat Scan 10/06/24 10:[address] head/brain wo con Stat Cat Scan 10/06/24 10:[address] lumbar spine wo con Stat Cat Scan 10/06/24 10:[address] thoracic spine wo con Stat Cat Scan 10/06/24 10:53 Completed Precinct Commanding Officer Consult [Consult to Case Management] [ Cons 10/06/24 10:34 Active CONS] Stat CXR --portable [XR chest portable] Stat Exams 10/06/24 10:55 Completed CK [Creatine Kinase] Stat Lab 10/06/24 09:45 Completed Complete Blood Count Auto Diff Stat Lab 10/06/24 09:45 Completed Comprehensive Metabolic Panel Stat Lab 10/06/24 09:45 Completed Diarrhea 23 Panel, PCR Stat Lab 10/06/24 10:53 Ordered Lactic Acid Follow Up (RFLX 1) Stat Lab 10/06/24 15:20 Completed PT INR [Prothrombin Time INR] Stat Lab 10/06/24 09:45 Completed PTT [Activated Partial Thrombo Time] Stat Lab 10/06/24 09:45 Completed T4 (Thyroxine) Stat Lab 10/06/24 09:45 Completed TSH [Thyroid Stimulating Hormone] Stat Lab 10/06/24 09:45 Completed Trop I [Troponin I] Stat Lab 10/06/24 09:45 Completed Troponin I Q3H Lab 10/06/24 14:19 Completed Troponin I Q3H Lab 10/06/24 17:00 Ordered UA [Urinalysis and Microscopic] Stat Lab 10/06/24 12:25 Completed VBG [Venous Blood Gas] Stat RT 10/06/24 10:53 Completed ECG Data Tracing #1: I reviewed this ECG and interpreted as documented below: Normal sinus rhythm with a ventricular of 90 bpm. PVC noted. No acute ST changes concerning for STEMI. Normal intervals. ECG initial impression date: 10/06/24 ECG initial impression time: 11:04 Medical Decision Narrative: In summary, this patient is a 74-year-old male presenting to the Emergency Department for evaluation of general weakness, debility, inability to care for himself, chronic low back pain, and concerned that he is having bowel movements all over himself at home. Differential diagnoses considered include but are not limited to acute on chronic back injury, colitis, worse in general debility, dehydration, MARITA. Ruling out the most morbid conditions drove assessment. It should be noted patient's history includes failure to thrive, iron deficiency anemia, hypertension, hyperlipidemia which may or may not be at goal therapy. This complicates all aspects of care by increasing patient's risk for morbidity. I reviewed patient's past medical records and noted recent previous admissions for similar complaints. Workup included broad lab evaluation to evaluate for infectious, metabolic, cardiac causes of his weakness as well as CT scans of his head, spines, abdomen and pelvis as well as chest x-ray. EKG obtained is reassuring. Labs are stable without significant change from prior. CT scans demonstrate chronic degenerative change as well as some esophageal thickening, but no acute surgical or emergent pathology otherwise. I do not feel patient requires admission for medical necessity, however the patient has debility, inability to care for himself at home, acute on chronic back pain, and does not have a safe disposition given that he is left to lie in his own excrement at home. We did file an APS report. I had a discussion with care management who tried to place the patient from the ED after PT/OT eval, but they could not obtain placement today. Given this, I had an interactive discussion with the hospitalist who admitted the patient for placement. Patient is agreeable to this. He was admitted in stable condition. Critical Care Critical Care Time Critical Care Time: No
--- NOTE | 2024-10-06 12:14 | SW/DCPLANNER ---
Addendum entered by [facility] 10/08/24 09:50: I have updated Jaye pérez/ Mary regarding upcoming appointment w/ Pain Mgt for pain pump 10/13/24 at 9AM. Addendum entered by [facility] 10/07/24 15:06: Per Jaye patient must be at facility by 7PM and patient's daughter plans to transport patient at 5PM. Addendum entered by [facility] 10/07/24 14:35: Patient has been approved SNF level of care for [facility]. I will update patient and daughter. Addendum entered by [facility] 10/07/24 12:42: Jaye pérez/ Mary stated that precert will be started today. Addendum entered by [facility] 10/07/24 10:30: Jaye w/ [facility] is willing to take this patient SNF level of care (pending precert) if patient can provide discharge planning after short term rehab. Patient voiced to myself and Jaye that he would like to go live w/ his daughter Maureen. I was able to get in contact w/ Maureen this AM and she stated that she would need to speak w/ her regarding patient living with them. I have updated Jaye w/ Mary Maureen's contact number. I will continue to follow up w/ azeb, Maureen and Jaye. Maureen: [phone] Addendum entered by [facility] 10/06/24 14:47: Jaye w/ [facility] is reviewing information. Radha w/ [facility] will be onsite to evaluate patient today. Addendum entered by [facility] 10/06/24 13:36: Per [facility] this report does meet criteria for investigation. Vivian w/ APS present at bedside to complete mini mental. Per Vivian patient is able to continue to make decisions for himself. Vivian stated that she will make contact w/ patient's family regarding providing assistance for this patient. Per ED MD still waiting on scan results prior to ordering PT/OT to evaluate. Patient is agreeable to placement at this time. I will fax information to [facility] (skilled) and [facility] (regional intermodal truck driver). Patient is agreeable to both facilities. Original Note: I was contacted by ED Dept regarding patient and plans once medically stable for discharge. Per nursing staff patient was brought in covered in urine and feces. Patient was unable to clean himself at home and family was not willing to assist and called 911. ED staff did make a report to [facility] (Web ID [id number]) regarding condition that patient came in, family not assisting patient at home and patient voicing that they were taking his money. I will continue to follow up w/ [facility] and ID#. During my assessment w/ patient he was alert, oriented and able to answer questions appropriately. Patient and I discussed the need for placement due to himself or family not being able to care for him at home. Patient voiced that he is considering this decision. Per ED MD we are waiting for scan reports prior to ordering PT/OT evaluation. I will continue to follow up w/ patient and ED staff.
[2024-10-06] MEDS: ACETAMINOPHEN 1,000MG/100ML VIAL 1000 MG IV (12:34)
[2024-10-06] MEDS: KETOROLAC 30MG/ML VIAL 15 MG IV (12:34)
[2024-10-06 12:36] LABS: Microscopic, Urine URINE MICROSCOPIC (MICROSCOPIC)
[2024-10-06 12:38] LABS: Appearance,Urine CLEAR (Clear); Bilirubin,Urine Negative (Negative); Blood, Urine Negative (Negative); Color,Urine YELLOW (Yellow); Glucose,Urine (UA) Negative (Negative); Ketones,Urine Negative (Negative); Leukocyte Esterase,Urine Negative (Negative); Nitrate,Urine Negative (Negative); PH,Urine 7.5 (5.0-8.5); Protein,Urine TRACE (Negative); Specific Gravity, Urine 1.015 (1.005-1.030); Urobilinogen,Urine >=8.0 EU/dl (0.2)
[2024-10-06 12:51] LABS: Bacteria,Urine Trace /lpf; Squamous Epithelial Cell,Urine Occasional #/hpf (0-5)
--- NOTE | 2024-10-06 13:24 | PC.NURSE ---
APS at bedside
[2024-10-06] MEDS: PANTOPRAZOLE 40MG TABLET 40 MG PO (14:13)
--- NOTE | 2024-10-06 14:21 | HMH.PTEV ---
Physical Therapy Evaluation Rehab PT IP Evaluation Start: 10/06/24 13:50 Freq: ONCE Status: Active Protocol: Document 10/06/24 14:15 DELIO (Rec: 10/06/24 14:19 DELIO [id number]) Subjective/History History History Per H&P: This patient is a 74 -year-old male with a history of chronic protein calorie malnutrition, inability to care for himself, prior history of L1 vertebral fracture, iron deficiency anemia, cognitive impairment, BPH, general debility, GERD, carotid stenosis, hypertension , and hyperlipidemia presenting to the emergency department for evaluation with concern for failure to thrive . According to EMS, they were called to the home because relative at home noted he had a bowel movement on himself and they could not clean him up. According to EMS, the patient was found covered in feces and urine in deplorable conditions. Patient states to us that Garrett takes care of him and only keeps him around for his money, not wanting to clean him up. Patient complains of low back pain but denies any other concerns or complaints at this time. He is alert and oriented to person and place but not time. On medical record review, he has been admitted multiple times over the last several months for dehydration and failure to thrive. They attempted to place him in a long-term on last admission which was , but patient refused and ended up going home. According to care management, they had to call the laborer cement gun placing's department to get Garrett to come pick him up. Subjective Subjective Pt reports he lives in a single story home with his son -in-law who helps out with cooking and cleaning. Pt reports he has had more difficulty getting around. New diagnosis of cancer in past 12 No months? Rehab PT IP Eval Objective Appearance Patient Behavior Appropriate,Cooperative Patient Orientation Situation Difficulty following instructions none Speech Pattern Clear,Mumbled Ambulation Patient Able to Ambulate No Balance Ability to Arise Unable Sitting Balance Steady, safe Standing Balance Unsteady Transfers Bed Transfer Ability Moderate x 2 (50% assist), Maximum x 1 (75% assist) Sit to Stand Bed Transfer Ability Moderate x 2 (50% assist) Rehab PT IP prob,goals,plan Problems Date of Evaluation: 10/06/24 PT IP Problems Bed Mobility,Transfers,Gait, Balance,Safety Rehab Potential Rehab Potential Good Plan PT Intervention Plan Bed Mobility,Transfers,Gait, Balance,Safety,Therapeutic Exercise Other Intervention Plan 1-2 times PT Plan Frequency Daily Duration LOS Discharge Goals Bed Transfer Ability Minimal x 2 (25% assist) Sit to Stand Chair Transfer Ability Minimal x 2 (25% assist) Discharge Plan PT Discharge Plan Initial physical therapy evaluation performed. Patient presents below baseline at this time in functional mobility, transfers, and strength. Pt not safe to return home at this time d/t current level of functional mobility. Pt required a minimum of 2 person assist to get to EOB and stand from EOB. Pt was limited by pain and weakness. PT recommending short-term rehabilitation stay upon d/c from [facility] to address deficits. If admitted, pt would benefit from skilled PT while at [facility] to prevent further functional decline and maximize safety with mobility . Eval Complexity Eval Charge Codes 48766 - High Complexity PHYSICIAN CERTIFICATION: I certify the specified therapy services for Refugio Jones are required, authorized, and reviewed every 30 days.
[2024-10-06 14:50] LABS: Troponin I < 0.01 ng/ml (0.00-0.034)
--- NOTE | 2024-10-06 15:05 | PC.NURSE ---
Dr. Bazzi s/w Case Management, Mary
--- NOTE | 2024-10-06 15:06 | HMH.OTEV ---
OT Inpatient Evaluation Rehab OT IP Evaluation Start: 10/06/24 13:50 Freq: ONCE Status: Active Protocol: Document 10/06/24 14:54 [email or web address] (Rec: 10/06/24 15:06 MIKE [id number]) Rehab OT IP Assessment Subjective History This patient is a 74-year-old male with a history of chronic protein calorie malnutrition, inability to care for himself , prior history of L1 vertebral fracture, iron deficiency anemia, cognitive impairment, BPH, general debility, GERD, carotid stenosis, hypertension, and hyperlipidemia presenting to the emergency department for evaluation with concern for failure to thrive. According to EMS, they were called to the home because relative at home noted he had a bowel movement on himself and they could not clean him up. According to EMS, the patient was found covered in feces and urine in deplorable conditions. Patient states to us that Garrett takes care of him and only keeps him around for his money, not wanting to clean him up. Patient complains of low back pain but denies any other concerns or complaints at this time. He is alert and oriented to person and place but not time. On medical record review, he has been admitted multiple times over the last several months for dehydration and failure to thrive. They attempted to place him in a senior living on last admission which was , but patient refused and ended up going home. According to care management, they had to call the service writer advisor's department to get Garrett to come pick him up. Patient lives alone with family who will check on him weekly. Patient was recently admitted at [facility] due to inability to care for himself, however refused placement and was sent back home. Subjective Garrett was suppose to take care of me. Instructed Patient on proper hand and foot placement to complete bed mobility from supine->sit @ EOB ->stand requiring Max A x2. Patient stood <30 secs and requested to lay back in bed due to weakness, fatigue and discomfort. Left Patient sitting upright in bed with needs met at end of session. Objective Patient Orientation Person,Place,Name Right Upper Extremity Gross ROM WFL Left Upper Extremity Gross ROM WFL Bed Mobility bed mobility - supine/sit Assist Level Maximum x 2 (75% assist) Transfer Training Sit/Stand Transfer Assist Level Maximum x 2 (75% assist) Chair Transfer Ability Maximum x 2 (75% assist) Chair Transfer Technique Sit to/from Ambulatory Chair Transfer Assistive Devices None Rehab OT IP prob,goals,plan Problems Date of Evaluation: 10/06/24 OT IP Problems Bed Mobility,Transfers,Balance ,Self care,Safety Rehab Potential Rehab Potential Good Equipment Needs Assistive Devices Rolling / Wheeled Walker, Wheelchair Plan OT intervention Plan Bed Mobility,Transfers,Balance ,Self care,Safety,Therapeutic Exercise OT Plan Frequency Daily Duration LOS Discharge Goals Bed Mobility Ability Assistance x1 Sit to Stand Chair Transfer Ability Maximum x 1 (75% assist) Chair Transfer Ability Maximum x 1 (75% assist) Chair Transfer Technique Sit to/from Ambulatory Chair Transfer Assistive Devices Rolling Walker Discharge Plan OT Discharge Plan Recommend patient to be in placement after medical d/c. Patient is unable to care for himself properly. Patient is incontinent of bowel and bladder mgt tr with needing TD to be properly cleaned up. Patient is required assistance of 2 for bed mobility and transfers to prevent fall risk . Patient to continue skilled OT IP services for placement setting. Eval Complexity Eval Charge Codes 51635 - Low Complexity PHYSICIAN CERTIFICATION: I certify the specified therapy services for Refugio Jones are required, authorized, and reviewed every 30 days.
[2024-10-06 15:14] LABS: Reflex Lactic Add Lactic Reflex
--- NOTE | 2024-10-06 15:29 | PC.NURSE ---
called to give report on pt going to room 203. TRN was given room assignment from data warehouse consultant. when attempting to call second floor to give report, erasmo on second floor states pt is not in the computer yet. will attempt to call report once registration has completed pt room assignment.
[2024-10-06 15:42] LABS: Lactic Acid Follow Up (RFLX 1) 1.1 mmol/L (0.7-2.1)
--- NOTE | 2024-10-06 15:45 | PC.NURSE ---
report called to erasmo on second floor
--- NOTE | 2024-10-06 16:52 | PC.NURSE ---
pt has a wallet locked in the med drawer at bedside
--- NOTE | 2024-10-06 18:20 | EXP.HP ---
History of Present Illness *Admission Date: 10/06/24 *Reason for visit:: Failure to thrive *History of present illness: Mr. Refugio Jones is a 74-year-old male with a medical history significant for progressive debility, mild cognitive impairment, hypertension, chronic pain syndrome presents again from home for inability to care for himself after he was found at home in a dilapidated state, apparently has not walked in more than a while and dirt on him. Of note, he was admitted for similar presentation twice in the past month and was recommended to be placed at a SNF, but patient declined and opted for home health. He states that his son and son-in-law occasionally take care of him at home and bring him food but he has not walked over the last 2 weeks. States he has been in pain all my life. He states the pain in his lower back and his legs and his feet have gotten to the point where he just cannot walk and is debilitated and weak. Patient states that he is 75 pounds below his normal weight. Workup significant for WBC 11.2, platelet 770. CXR did not show acute findings. Case was discussed with ED provider and decision was made to admit patient for progressive physical debility and failure to thrive. Patient is open to being placed at a SNF. [facility] Disclaimer: The information contained in this section may have been updated after the patient was seen, as this information can be updated by other users. Medical History Screening for colon cancer Abdominal pain Posture abnormality Diarrhea Lumbar degenerative disc disease Peritonitis Urinary incontinence Bee sting reaction Anxiety Low vitamin B12 level Adjustment disorder Acute sinusitis Acute bronchitis Acute exacerbation of chronic obstructive pulmonary disease Rib injury BPH (benign prostatic hyperplasia) Asthma Hypertension Acute exacerbation of chronic low back pain Bronchitis Exposure to COVID-19 virus Sinusitis Carotid artery stenosis Asthma GERD (gastroesophageal reflux disease) History of DVT (deep vein thrombosis) HLD (hyperlipidemia) HTN (hypertension) Radiculopathy Neck pain Finger laceration Otitis media Pneumonia Lumbar radiculopathy Surgical History S/P exploratory laparotomy Hx of colonoscopy History of colectomy History of elbow surgery History of surgery on lower extremity History of splenectomy History of back surgery Family History Other No significant family history Social History (Updated 10/06/24 @ 16:48 by Camryn Perez RN) Smoking Status: Former smoker second hand exposure: No alcohol intake: never substance use type: denies use current occupational status: retired Travel in the last 8 weeks: None housing: house caffeine: Yes Other Medical History Have you received the Flu Vaccine for this season: No Have you received the Pneumonia Vaccine: No Meds Home Medications and Allergies Home Medications ?Medication ?Instructions ?Recorded ?Confirmed ?Type morphine (PF) 1 mg/mL injection 1 mg epidural CONT 11/07/23 09/26/24 History solution sertraline 25 mg tablet 25 mg PO DAILY 09/04/24 09/26/24 History New Prescriptions to Start Prescriptions: Allergies Allergy/AdvReac Type Severity Reaction Status Date / Time No Known Allergies Allergy Unverified 09/26/24 08:45 Exam Data for Last 24 hours Vital signs and Labs for Last 24 Hours: Temp Pulse Resp BP Pulse Ox O2 Del Method 98.6 F 78 17 121/69 96 Room Air 10/06/24 15:59 10/06/24 15:59 10/06/24 15:59 10/06/24 15:59 10/06/24 15:17 10/06/24 17:00 Laboratory Results - last 24 hr 10/06/24 09:45: WBC 11.2 H, RBC 3.46 L, Hgb 10.0 L, Hct 31.3 L, MCV 90.5, MCH 29.0, MCHC 32.1, RDW 16.1, Plt Count 770 H, MPV 8.2, Neut % (Auto) 63.9, Lymph % (Auto) 29.2, [place] % (Auto) 5.8, Eos % (Auto) 0.6, Baso % (Auto) 0.7, Neut # (Auto) 7.2, Lymph # (Auto) 3.3, [place] # (Auto) 0.7, Eos # (Auto) 0.1, Baso # (Auto) 0.1, PT 11.9, INR 1.07, APTT 28.8, Sodium 135 L, Potassium 4.1, Chloride 102, Carbon Dioxide 29, Anion Gap 8.1, BUN 12, Creatinine 0.60 L, Estimated Creat Clear 58, Estimated GFR 132, Est GFR ( Amer) 160, Glucose 116 H, Calcium 8.5, Total Bilirubin 0.7, AST 116 H, ALT 65, Alkaline Phosphatase 124, Total Creatine Kinase < 20 L, Troponin I < 0.01, Total Protein 6.8, Albumin 2.9 L, Globulin 3.9 H, Albumin/Globulin Ratio 0.7 L, TSH 2.36, Thyroxine (T4) 6.0 10/06/24 10:53: VBG pH 7.49 H, VBG pCO2 36.4, VBG pO2 149.4 H, VBG HCO3 27.0, VBG Total CO2 28.1 H, VBG O2 Saturation 99.4 H, VBG Base Excess 3.6 H, VBG Lactic Acid 2.3 H 10/06/24 12:25: Urine Color Yellow, Urine Appearance Clear, Urine pH 7.5, Ur Specific [place] 1.015, Urine Protein Trace, Urine Glucose (UA) Negative, Urine Ketones Negative, Urine Blood Negative, Urine Nitrate Negative, Urine Bilirubin Negative, Urine Urobilinogen >=8.0, Ur Leukocyte Esterase Negative, Urine RBC None, Urine WBC None, Ur Squamous Epith Cells Occasional, Urine Bacteria Trace 10/06/24 14:19: Troponin I < 0.01 10/06/24 15:20: Lactate 1.1 I & O for Last 24 hours: Intake & Output 10/03/24 10/04/24 10/05/24 10/06/24 23:59 23:59 23:59 23:59 Weight 60.101 kg Constitutional Constitutional: no acute distress and cachectic *Routine HEENT Exam Head: Present normocephalic Eye: Present EOMI and PERRL ENT: Present mucous membranes moist *Routine Neck Exam Neck: Present supple; Absent lymphadenopathy *Routine Respiratory Exam Respiratory: Present CTA bilaterally *Routine Cardiovascular Exam Cardiovascular: Present RRR *Routine Abdominal Exam Abdominal: Present soft and normoactive bowel sounds; Absent tenderness *Routine Rectal Exam Rectal:: deferred *Routine Genitalia Exam Genitalia:: deferred *Routine Extremities Exam Extremities: Absent cyanosis, clubbing or edema *Routine Skin Exam Skin: Present warm; Absent rash *Routine Neurological Exam Neurological: Present alert Assessment and Plan *Assessment and plan (1) Chronic back pain: Status: Acute Category: Medical Code(s): M54.9 - Dorsalgia, unspecified; G89.29 - Other chronic pain (2) Debility: Status: Acute Category: Medical Code(s): R53.81 - Other malaise (3) General weakness: Status: Acute Category: Medical Code(s): R53.1 - Weakness (4) Self-care deficit: Status: Acute Category: Medical Code(s): Z78.9 - Other specified health status Plan Mr. Refugio Jones is a 74-year-old male with a medical history significant for progressive debility, mild cognitive impairment, hypertension, chronic pain syndrome presents again from home for inability to care for himself after he was found at home in a dilapidated state, apparently has not walked in more than a while and dirt on him. Of note, he was admitted for similar presentation twice in the past month and was recommended to be placed at a SNF, but patient declined and opted for home health. He states that his son and son-in-law occasionally take care of him at home and bring him food but he has not walked over the last 2 weeks. States he has been in pain all my life. He states the pain in his lower back and his legs and his feet have gotten to the point where he just cannot walk and is debilitated and weak. Patient states that he is 75 pounds below his normal weight. Workup significant for WBC 11.2, platelet 770. CXR did not show acute findings. Case was discussed with ED provider and decision was made to admit patient for progressive physical debility and failure to thrive. Patient is open to being placed at a SNF. #Self-care deficit #Progressive debility #Mild cognitive impairment #Severe protein malnutrition ? Unfortunately, due to patient's chronic pain syndrome he has had progressive physical debility and decline over the past months. He is unable to take care of himself at home. Would highly benefit from SNF and/or long-term assisted living. Patient states he is open to it. ? APS report has been filed given patient's deplorable living condition. ? PT/OT consulted, pending recommendations. ? Case management consulted, pending recommendations. - On previous admission, albumin was low at 2.9. TSH obtained and normal at 2.7. A1c normal at 4.9. ? Ensure supplementation with meals. #Thrombocytosis ? Platelets 770. Stable. No signs of thrombosis. Continue monitor. #Hypertension ? Resume home losartan once appropriate. #Chronic pain - Consider pain management consult like in last admission. ? Tylenol, Percocet as needed for pain. Full code DVT prophylaxis: Lovenox 30 mg
[2024-10-07 04:00] VITALS: BP 127/65; PULSE 87; RESP 16; TEMP 37; O2SAT 98; BMI 21.7
--- NOTE | 2024-10-07 04:33 | PC.NURSE ---
74 yo male pt admitted with FTT. Pt is A/O x 3. He has been in bed and slept through the night. Upon assessment, he denied pain, SOA or coughing. No BM. Voiding per [place]/brief.
[2024-10-07 06:46] LABS: Basophils # 0.1 K/mm3 (0-0.2); Basophils % 1.8 % (0.1-2.0); Eosinophils # 0.2 K/mm3 (0.0-0.4); Eosinophils % 2.6 % (0.1-12.0); Hematocrit 32.3 % (42.0-52.0); Hemoglobin 9.7 g/dL (14.1-18.0); Lymphocytes % 28.3 % (10-50); Mean Corpuscular Hemoglobin 29.7 pg (27.0-31.2); Mean Platelet Volume 7.1 fl (7.4-10.4); Monocytes # 0.3 K/mm3 (0.1-1.0); Monocytes % 4.4 % (1.7-9.3); Neutrophils # 4.5 K/mm3 (1.8-7.8); Platelet Count 615 K/mm3 (142-424); Red Blood Count 3.26 M/mm3 (4.60-6.20); Red Cell Distribution Width 15.9 % (11.5-17.5); White Blood Count 7.1 K/mm3 (4.8-10.8)
[2024-10-07 07:37] LABS: Magnesium 2.1 mg/dl (1.6-2.3)
[2024-10-07 07:45] VITALS: BP 120/60; PULSE 92; RESP 16; TEMP 36.6; O2SAT 97
--- NOTE | 2024-10-07 07:48 | HMH.PHAINT1 ---
Pharmacy Intervention Comments: PATIENT IS NOT TAKING ANY MEDICATIONS AT HOME- CONFIRMED VIA PATIENT INTERVIEW
[2024-10-07] MEDS: ENOXAPARIN 40MG/0.4ML SYRINGE 30 MG SUBCUT (09:13)
--- NOTE | 2024-10-07 13:56 | HMH.PTWOUND ---
Rehab Inpt Wound Evaluation Rehab IP Wound Evaluation Start: 10/06/24 16:51 Freq: ONCE Status: Active Protocol: Document 10/07/24 13:53 ASIF (Rec: 10/07/24 13:55 ASIF [id number]) Rehab PT Wound Assessment Subjective Subjective Per H&P: This patient is a 74 -year-old male with a history of chronic protein calorie malnutrition, inability to care for himself, prior history of L1 vertebral fracture, iron deficiency anemia, cognitive impairment, BPH, general debility, GERD, carotid stenosis, hypertension , and hyperlipidemia presenting to the emergency department for evaluation with concern for failure to thrive . According to EMS, they were called to the home because relative at home noted he had a bowel movement on himself and they could not clean him up. According to EMS, the patient was found covered in feces and urine in deplorable conditions. Patient states to us that Garrett takes care of him and only keeps him around for his money, not wanting to clean him up. Patient complains of low back pain but denies any other concerns or complaints at this time. He is alert and oriented to person and place but not time. On medical record review, he has been admitted multiple times over the last several months for dehydration and failure to thrive. They attempted to place him in a care home on last admission which was , but patient refused and ended up going home. According to care management, they had to call the breakfast supervisor's department to get Garrett to come pick him up. PT wound consult ordered per policy as pt had low jillian scale score upon adm. He currently presents with no known open sores noted. Plan/Recommendation Comment Pt currently has no open wounds and has no need for debridement or advanced wound care. [facility] staff aware and are performing appropriate pressure relief with patient per protocols. Thank you for involving the wound care team in the care of this pt. PHYSICIAN CERTIFICATION: I certify the specified therapy services for Refugio Jones are required, authorized, and reviewed every 30 days.
--- NOTE | 2024-10-07 14:34 | P.DS_ITS ---
General Admission date:: 10/06/24 HPI HPI HPI: Mr. Refugio Jones is a 74-year-old male with a medical history significant for progressive debility, mild cognitive impairment, hypertension, chronic pain syndrome presents again from home for inability to care for himself after he was found at home in a dilapidated state, apparently has not walked in more than a while and dirt on him. Of note, he was admitted for similar presentation twice in the past month and was recommended to be placed at a SNF, but patient declined and opted for home health. He states that his son and son-in-law occasionally take care of him at home and bring him food but he has not walked over the last 2 weeks. States he has been in pain all my life. He states the pain in his lower back and his legs and his feet have gotten to the point where he just cannot walk and is debilitated and weak. Patient states that he is 75 pounds below his normal weight. Workup significant for WBC 11.2, platelet 770. CXR did not show acute findings. Case was discussed with ED provider and decision was made to admit patient for progressive physical debility and failure to thrive. Patient is open to being placed at a SNF. Hospital Course Hospital Course Hospital Course: Mr. Refugio Jones is a 74-year-old male with a medical history significant for progressive debility, mild cognitive impairment, hypertension, chronic pain syndrome presents again from home for inability to care for himself after he was found at home in a dilapidated state, apparently has not walked in more than a while and dirt on him. Of note, he was admitted for similar presentation twice in the past month and was recommended to be placed at a SNF, but patient declined and opted for home health. He states that his son and son-in-law occasionally take care of him at home and bring him food but he has not walked over the last 2 weeks. States he has been in pain all my life. He states the pain in his lower back and his legs and his feet have gotten to the point where he just cannot walk and is debilitated and weak. Patient states that he is 75 pounds below his normal weight. Workup significant for WBC 11.2, platelet 770. CXR did not show acute findings. Case was discussed with ED provider and decision was made to admit patient for progressive physical debility and failure to thrive. Patient is open to being placed at a SNF. #Self-care deficit #Progressive debility #Mild cognitive impairment #Severe protein malnutrition ? Unfortunately, due to patient's chronic pain syndrome he has had progressive physical debility and decline over the past months. He is unable to take care of himself at home. Would highly benefit from SNF. ? APS report has been filed given patient's deplorable living condition. - On previous admission, albumin was low at 2.9. TSH obtained and normal at 2.7. A1c normal at 4.9. ? Ensure supplementation with high-protein meals. ? PT/OT consulted, recommended SNF placement. Count includes the [facility] graciously offered to accept patient today. #Thrombocytosis ? Platelets 770->615. Stable. No signs of thrombosis. Continue monitor. #Chronic back pain ? History of closed L1 vertebral fracture, bilateral A/C joint arthritis. - Patient has morphine pump in his back. Exam Data for Last 24 hours Vital signs and Labs for Last 24 Hours: Temp Pulse Resp BP Pulse Ox O2 Del Method 98 F 92 H 16 120/60 97 Room Air 10/07/24 07:45 10/07/24 07:45 10/07/24 07:45 10/07/24 07:45 10/07/24 07:45 10/07/24 13:00 Laboratory Results - last 24 hr 10/06/24 14:19: Troponin I < 0.01 10/06/24 15:20: Lactate 1.1 10/07/24 06:28: WBC 7.1 D, RBC 3.26 L, Hgb 9.7 L, Hct 32.3 L, MCV 99.0 H, MCH 29.7, MCHC 30.0 L, RDW 15.9, Plt Count 615 H, MPV 7.1 L, Neut % (Auto) 63.0, Lymph % (Auto) 28.3, [place] % (Auto) 4.4, Eos % (Auto) 2.6, Baso % (Auto) 1.8, Neut # (Auto) 4.5, Lymph # (Auto) 2.0, [place] # (Auto) 0.3, Eos # (Auto) 0.2, Baso # (Auto) 0.1, Magnesium 2.1 I & O for Last 24 hours: Intake & Output 12/08/24 12/09/24 12/10/24 12/11/24 23:59 23:59 23:59 23:59 Intake Total 630 / 630 Output Total 350 / 350 Balance 280 / 280 Weight 60.101 kg 61.326 kg Constitutional Constitutional: no acute distress, chronically ill appearing and cooperative *Routine HEENT Exam Head: Present normocephalic Eye: Present EOMI and PERRL ENT: Present mucous membranes moist Comments: edentulous *Routine Neck Exam Neck: Present supple; Absent lymphadenopathy *Routine Respiratory Exam Respiratory: Present CTA bilaterally; Absent rhonchi, wheezes or crackles *Routine Cardiovascular Exam Cardiovascular: Present RRR *Routine Abdominal Exam Abdominal: Present soft and normoactive bowel sounds; Absent tenderness *Routine Rectal Exam Patient deferred: visual exam *Routine Exam Patient deferred: penile exam *Routine Extremities Exam Extremities: Absent cyanosis, clubbing or edema *Routine Skin Exam Skin: Present intact and warm; Absent rash *Routine Neurological Exam Neurological: Present alert and moving all extremities; Absent altered mental status Results Data Completed and Pending Labs on day of discharge: Labs from last 24 hours 10/07/24 10/06/24 10/06/24 06:28 15:20 14:19 WBC 7.1 D RBC 3.26 L Hgb 9.7 L Hct 32.3 L MCV 99.0 H MCH 29.7 MCHC 30.0 L RDW 15.9 Plt Count 615 H MPV 7.1 L Neut % (Auto) 63.0 Lymph % (Auto) 28.3 [place] % (Auto) 4.4 Eos % (Auto) 2.6 Baso % (Auto) 1.8 Neut # (Auto) 4.5 Lymph # (Auto) 2.0 [place] # (Auto) 0.3 Eos # (Auto) 0.2 Baso # (Auto) 0.1 Lactate 1.1 Magnesium 2.1 Troponin I < 0.01 DS: Diagnosis Discharge Diagnosis (1) Chronic back pain: Status: Acute Code(s): M54.9 - Dorsalgia, unspecified; G89.29 - Other chronic pain (2) Debility: Status: Acute Code(s): R53.81 - Other malaise (3) General weakness: Status: Acute Code(s): R53.1 - Weakness (4) Self-care deficit: Status: Acute Code(s): Z78.9 - Other specified health status Meds Home Medications and Allergies Home Medications ?Medication ?Instructions ?Recorded ?Confirmed ?Type morphine (PF) 1 mg/mL injection 1 mg continuous intrathecal 11/07/23 10/07/24 History solution infusion CONT New Prescriptions to Start Prescriptions: Allergies Allergy/AdvReac Type Severity Reaction Status Date / Time No Known Allergies Allergy Unverified 09/26/24 08:45 Discharge Plan Disposition Patient Disposition: er SNF Condition: Fair Discharge Order Discharge Orders: Discharge Order (Routine); Ordered 10/07/24 Ordered By: Rocael [place] Follow up Plan Prescriptions/Medication Reconciliation: Continued morphine (PF) 1 mg/mL Solution 1 mg continuous intrathecal infusion CONT Problem Reconciliation Problems Reviewed?: Yes Patient Discharge Instructions Patient Instructions: DI for Failure to Thrive Print Language: [place] Providers Primary Care Provider: Senia Espinoza Provider: Rocael Colorado Attending Provider: Rocael Colorado
[2024-10-07 15:52] VITALS: BP 116/60; PULSE 83; RESP 16; TEMP 37; O2SAT 100
--- NOTE | 2024-10-07 16:30 | PC.NURSE ---
called report to jasmeet at [facility]. now waiting on daughter for a ride.
== END 2024-10-07 17:35 ==
LOC: ER 12:19 → 2ND 15:33
PROVIDERS: Admitting Provider Student in an Organized Health Care Education/Training Program; Emergency Provider Emergency Medicine; PCP Nurse Practitioner Family; Visit Provider Student in an Organized Health Care Education/Training Program
DX: M54.9 Dorsalgia, unspecified (principal); R53.81 Other malaise; R53.1 Weakness; Z74.1 Need for assistance with personal care; Z73.89 Other problems related to life management difficulty; E43 Unspecified severe protein-calorie malnutrition; Z68.21 Body mass index [BMI] 21.0-21.9, adult; G89.4 Chronic pain syndrome; I10 Essential (primary) hypertension; D75.839 Thrombocytosis, unspecified; E78.5 Hyperlipidemia, unspecified; Z63.6 Dependent relative needing care at home; Z62.820 Parent-biological child conflict; T74.01XA Adult neglect or abandonment, confirmed, initial encounter; Y07.44 Child, perpetrator of maltreatment and neglect; Z96.82 Presence of neurostimulator
CPT/HCPCS: 36415; 70450; 71045; 72125; 72128; 72131; 72192; 74177; 80053; 81001; 82550; 82803; 83605; 83735; 84436; 84443; 84484; 85025; 85610; 85730; 93005; 97110; 97530; 99285; G0378; J0131; J1650; J1885; Q9967

== ENCOUNTER 2024-10-16 10:47 | Day surgery (SDC) | payer MEDICARE, SELFPAY ==
--- NOTE | 2024-10-16 10:56 | P.PCN_ITS ---
Procedure Date: 10/16/24 Time: 12:32 Anesthesiologist:: Gia Henao APRN Complications:: None Pre-procedure Diagnosis:: Degenerative disc disease of lumbar spine with lumbar radiculopathy symptoms Post-procedure Diagnosis:: Same Indications for Procedure:: Patient is a pleasant 74-year-old male who presents today for intrathecal refill and reprogram. Today he rates his pain a 7 out of 10. He denies any new trauma or injury. He does state that he just feels not the best today overall. He states he is just been having pain all over and increased headaches. Patient is currently managed with morphine 1 mg/mL with a daily dose of 0.1153 mg/day. He denies any side effects from this medication. He is asking if we can go up on the dosage. He does state that he is now in the correction. his Siva has been reviewed and is appropriate. Physical Exam: General: Alert and oriented x3, no acute distress, pleasant and cooperative Lungs: Respirations even and unlabored, symmetrical chest expansion Eyes: PERRL Musculoskeletal: Flexion and extension of lumbar [spine] somewhat guarded secondary to pain, [antalgic gait noted] Neurological: Speech clear, no gross sensory deficit Procedure Details:: Informed consent was obtained and the risk and benefits of the procedure were explained to the patient. The patient had noninvasive monitoring placed including noninvasive blood pressure cuff and pulse oximeter. Patient's pump wa s interrogated. The area over the pump was cleansed with chlorhexidine as a cleansing solution. In sterile fashion the pump was accessed with a 22-gauge needle. Approximately 3.5 mls of the pump solution was removed and discarded appropriately. The pump was then refilled with 20 mL's of morphine 1 mg/mL. The needle was withdrawn and a bandage was placed over the puncture site. The infusion rate was reprogrammed and increased to morphine 0.1396 mg/day. The patient tolerated well with no complication. Plan and Disposition:: Patient tolerated his intrathecal refill and reprogram with no complications and was discharged neurologically intact. Patient will return to clinic on or before his next intrathecal refill date. We will see the patient back in the clinic at the next intrathecal refill. Patient has been instructed to contact the clinic with any concerns before the next appointment. Dr. Gongora has reviewed this note and agrees with this plan of care. This note was dictated using voice recognition software and make contain errors or omissions. -- It Is medically necessary for this patient to continue to have their intrathecal pump refilled at regular intervals. This patient had an intrathecal pain pump implanted after meeting criteria of chronic intractable pain for greater than 3 months and failing conservative treatments. Patient has committed and been compliant to the treatment plan and all planned follow up care. Since implantation of the intrathecal pain pump, the patient has had decreased pain and been more functional. Oral medications have been reduced including intake of oral opioids. Patient continues to do well with intrathecal therapy with decrease in pain symptoms and increase in functional status. Stopping intrathecal medications can lead to life threatening withdrawal, seizures, cardiac arrest, severe pain, and possible . Pumps that are not refilled at regular intervals can be damages and cause and need for replacement. We continually titrate dose and concentration to optimize pain relief and function. We are limited in concentration for certain drugs to safely deliver medications through the pump and stay within the recommendations from the Polyanalgesic Consensus Committee Guidelines. Depending on dose and concentration these pumps may need to be refilled sooner than 3 months as we titrate. A UDS is needed to verify patient's compliance with our office pain contract. This is ordered based off specific treatments related to chronic pain with the potential to abuse certain medications.
[2024-10-16 12:01] VITALS: BP 139/77; PULSE 95; RESP 16; O2SAT 98; BMI 21.2
[2024-10-16 12:27] VITALS: BP 141/81; PULSE 82; RESP 18; O2SAT 97
[2024-10-16 12:29] VITALS: BP 141/81; PULSE 82; RESP 18; O2SAT 97
[2024-10-16 12:41] VITALS: BP 131/74; PULSE 90; RESP 16; O2SAT 100
== END 2024-10-16 12:41 | disposition home or self-care (01) ==
PROVIDERS: PCP Nurse Practitioner Family; Visit Provider Nurse Practitioner Family
DX: M51.16 Intervertebral disc disorders with radiculopathy, lumbar region (principal)
CPT/HCPCS: 62370

== ENCOUNTER 2024-11-17 12:04 | Outpatient (CLI) | payer MEDICARE, SELFPAY ==
--- NOTE | 2024-11-17 12:07 | XR_ITS ---
FINAL REPORT CLINICAL HISTORY: left knee pain COMPARISON: None FINDINGS: LEFT KNEE 3 views of the left knee were obtained. There is no acute fracture or dislocation. Moderate medial compartment joint space narrowing is noted. Chondrocalcinosis is present in both the medial and lateral compartments of the knee. There are mild hypertrophic changes involving the medial joint margin. Soft tissues are unremarkable. IMPRESSION: Degenerative change as described, with no acute bony abnormality. Reviewed, Interpreted and Dictated by Abundio Estrella MD Transcribed by Pamela Gibson Authenticated and [facility]
[2024-11-17 13:21] LABS: Basophils % 0.4 % (0.1-2.0); Eosinophils # 0.1 K/mm3 (0.0-0.4); Eosinophils % 1.2 % (0.1-12.0); Hematocrit 32.4 % (42.0-52.0); Hemoglobin 10.6 g/dL (14.1-18.0); Lymphocytes # 2.4 K/mm3 (0.7-4.5); Lymphocytes % 28.4 % (10-50); Mean Corpuscular HGB Conc 32.7 g/dL (31.8-35.4); Mean Corpuscular Volume 88.8 fl (80-94); Mean Platelet Volume 9.8 fl (7.4-10.4); Monocytes # 0.7 K/mm3 (0.1-1.0); Monocytes % 7.7 % (1.7-9.3); Neutrophils # 5.2 K/mm3 (1.8-7.8); Neutrophils % 62.1 % (37.0-80.0); Platelet Count 455 K/mm3 (142-424); Red Blood Count 3.65 M/mm3 (4.60-6.20); White Blood Count 8.4 K/mm3 (4.8-10.8)
[2024-11-17 13:36] LABS: Albumin Level 3.1 g/dl (3.5-5.0); Chloride 104 mmol/L (98-107); Sodium 136 mmol/L (136-145)
[2024-11-17 13:39] LABS: Alanine Aminotransferase 11 U/L (12-78); Albumin/Globulin Ratio 0.9 (1.1-1.8); Alkaline Phosphatase 116 U/L (38-126); Aspartate Amino Transferase 22 U/L (17-59); Bilirubin,Total 0.6 mg/dl (0.2-1.3); Blood Urea Nitrogen 8 mg/dl (9-20); Calcium 8.7 mg/dl (8.4-10.2); Carbon Dioxide 27 mmol/L (22.0-30.0); Estimated Glomerular Filt Rate 163 ml/min (>60); GFR (African American) 198 ML/MIN (>60); Globulin 3.5 g/dL (1.3-3.2); Glucose 108 mg/dl (74-100); Total Protein,Serum 6.6 g/dl (6.3-8.2)
[2024-11-17 14:10] LABS: Thyroid Stimulating Hormone 1.06 uIU/mL (0.465-4.68)
[2024-11-17 14:14] LABS: Ferritin 276 ng/ml (17.9-464)
[2024-11-17 15:44] LABS: Vitamin B12 509 pg/mL (239-931)
[2024-11-19 12:58] LABS: Peripheral Smear Review Scanned Result
== END 2024-11-17 23:59 | disposition home or self-care (01) ==
LOC: RAD 12:05
PROVIDERS: PCP Nurse Practitioner Family; Visit Provider Nurse Practitioner Family
DX: M25.562 Pain in left knee (principal); R53.1 Weakness; E53.8 Deficiency of other specified B group vitamins; D75.839 Thrombocytosis, unspecified; D64.9 Anemia, unspecified; D50.8 Other iron deficiency anemias
CPT/HCPCS: 73562; 80053; 82607; 82728; 84443; 85025

== ENCOUNTER 2024-11-24 13:25 | Outpatient (CLI) | payer MEDICARE, SELFPAY ==
[2024-11-24 13:55] LABS: Anion Gap 11.4 mEq/L (5-15); Blood Urea Nitrogen 10 mg/dl (9-20); Calcium 9.3 mg/dl (8.4-10.2); Carbon Dioxide 30 mmol/L (22.0-30.0); Chloride 102 mmol/L (98-107); Estimated Glomerular Filt Rate 111 ml/min (>60); GFR (African American) 134 ML/MIN (>60); Glucose 82 mg/dl (74-100); Potassium 4.4 mmoL/L (3.5-5.1); Sodium 139 mmol/L (136-145)
== END 2024-11-24 23:59 | disposition home or self-care (01) ==
LOC: LAB.DROPOF 13:25
PROVIDERS: PCP Internal Medicine; Visit Provider Internal Medicine
DX: E87.6 Hypokalemia (principal)
CPT/HCPCS: 80048

== ENCOUNTER 2024-11-26 10:55 | Observation (INO) | payer MEDICARE, SELFPAY ==
[2024-11-26] VITALS (11 sets, daily range): BP systolic 114–172; BP diastolic 67–102; PULSE 63–110; RESP 13–20; TEMP 36.8–37.1; O2SAT 95–100; BMI 19.8
--- NOTE | 2024-11-26 11:00 | XR_ITS ---
FINAL REPORT CLINICAL HISTORY: FALL FROM STANDING COMPARISON: 12/31/2022 FINDINGS: Left hip Three views were obtained. There are sideplate and compression screws securing healed fracture deformity of the proximal femur. There is a transverse screw securing the left sacroiliac joint. There is posterior fusion hardware bridging the right L5-S1 posterior elements. IMPRESSION: Post surgical changes as above. Reviewed, Interpreted and Dictated by Abundio Estrella MD Transcribed by Holly Garcia Authenticated and [facility]
--- NOTE | 2024-11-26 11:00 | XR_ITS ---
FINAL REPORT CLINICAL HISTORY: FALL FROM STANDING FINDINGS: Left knee Three views were obtained. There is no fracture or dislocation. There is advanced medial compartment joint space narrowing. Extensive chondrocalcinosis is identified. There are hypertrophic changes at the joint margins consistent with osteoarthritis. There are multiple small intra-articular loose bodies measuring up to 9 mm anteriorly and 1.2 cm posteriorly. IMPRESSION: Advanced changes of osteoarthritis. Small intra-articular loose bodies as above. Chondrocalcinosis. Reviewed, Interpreted and Dictated by Abundio Estrella MD Transcribed by Holly Garcia Authenticated and [facility]
--- NOTE | 2024-11-26 11:05 | ECG_ITS ---
APPROVED REPORT Exam: Resting ECG HR:89 bpm ECG Measurements Heart Rate 89 AXES ND 134 P 61 QRSd 69 QRS 8 QT 378 T 31 QTc 425 Conclusion SINUS RHYTHM NORMAL ECG UNCONFIRMED REPORT Electronically signed by : MELI VALLE, 11/29/2024 07:00:07
--- NOTE | 2024-11-26 11:15 | PC.NURSE ---
XR AT BEDSIDE
[2024-11-26 11:22] LABS: Basophils # 0.1 K/mm3 (0-0.2); Basophils % 0.4 % (0.1-2.0); Eosinophils % 0.2 % (0.1-12.0); Hematocrit 36.2 % (42.0-52.0); Hemoglobin 11.8 g/dL (14.1-18.0); Lymphocytes # 2.7 K/mm3 (0.7-4.5); Lymphocytes % 21.3 % (10-50); Mean Corpuscular HGB Conc 32.6 g/dL (31.8-35.4); Mean Corpuscular Hemoglobin 29.4 pg (27.0-31.2); Mean Corpuscular Volume 90.3 fl (80-94); Monocytes % 8.3 % (1.7-9.3); Neutrophils # 8.8 K/mm3 (1.8-7.8); Neutrophils % 69.5 % (37.0-80.0); Platelet Count 557 K/mm3 (142-424); Red Blood Count 4.01 M/mm3 (4.60-6.20); Red Cell Distribution Width 18.9 % (11.5-17.5); White Blood Count 12.6 K/mm3 (4.8-10.8)
[2024-11-26 11:32] LABS: Albumin Level 3.7 g/dl (3.5-5.0); Chloride 101 mmol/L (98-107); Sodium 138 mmol/L (136-145)
[2024-11-26 11:33] LABS: Potassium 4.1 mmoL/L (3.5-5.1)
[2024-11-26 11:35] LABS: Alanine Aminotransferase 19 U/L (12-78); Anion Gap 13.1 mEq/L (5-15); Aspartate Amino Transferase 30 U/L (17-59); Blood Urea Nitrogen 18 mg/dl (9-20); Carbon Dioxide 28 mmol/L (22.0-30.0); Creatinine Clearance Estimated 60 mL/min (50-200); Estimated Glomerular Filt Rate 111 ml/min (>60); GFR (African American) 134 ML/MIN (>60)
[2024-11-26 11:36] LABS: Albumin/Globulin Ratio 0.9 (1.1-1.8); Alkaline Phosphatase 118 U/L (38-126); Bilirubin,Total 1.1 mg/dl (0.2-1.3); Calcium 9.4 mg/dl (8.4-10.2); Globulin 4.2 g/dL (1.3-3.2); Glucose 112 mg/dl (74-100); Total Protein,Serum 7.9 g/dl (6.3-8.2)
--- NOTE | 2024-11-26 11:38 | XR_ITS ---
FINAL REPORT CLINICAL HISTORY: fall, injury FINDINGS: Left femur Two views were obtained. There is no acute fracture or dislocation. There are sideplate and compression screws securing the proximal femur. There is old healed fracture deformity of the mid femur with mild medial displacement of the distal fracture fragment. IMPRESSION: Postsurgical and chronic appearing findings. Reviewed, Interpreted and Dictated by Abundio Estrella MD Transcribed by Holly Garcia Authenticated and [facility]
--- NOTE | 2024-11-26 11:40 | HMH.EDGENADL ---
Discharge Plan Disposition Patient Disposition: Admitted Prescriptions Prescriptions: No Action acetaminophen [Tylenol] 325 mg tablet 650 mg PO Q8H PRN (Reason: Fever Or Pain) potassium chloride 20 mEq tablet extended release 20 meq PO BID Qty: 60 0RF morphine (PF) 1 mg/mL Solution 1 mg continuous intrathecal infusion CONT Referrals Follow up/Referrals: Shun Dsouza DO [Primary Care Provider] - See instructions Clinical Impressions Clinical Impression: Fall, Injury of left leg, Adult failure to thrive, Inability to walk Print Language Print Language: Polish Discharge ED Provider: Kenia Jones General Adult HPI General Chief complaint: Fall Stated complaint: fall Time Seen by Provider: 11/26/24 11:40 Mode of Arrival: Family Vehicle Source of Information: Patient Limitations: No Limitations Description of Symptoms (Recalled from ER Triage Doc. by RN): Pt presents to ER via EMS after falling from standing yesterday around 10 am. States he tripped and fell forward and struck his R hip and left knee. He has mild tenderness to R hip, there is a small abrasion and scratch @ Hip. There is no redness or swelling to L knee. ABD is soft and non-tender. He denies hitting his hed or neck pain, although pt also states he is unsure if he had LOC or not. History of Present Illness HPI narrative: Patient is a 74-year-old male presenting today with left leg pain. He is accompanied by family member who states that he has been a little bit lethargic over the last 24 hours. Fell yesterday. Specifically states that he has pain to the left hip femur and knee area. Has a history of surgical intervention in that area. Denies any other symptoms such as dysuria frequency urgency chest pain shortness of breath etc. No fevers or chills. Related Data Home Medications ?Medication ?Instructions ?Recorded ?Confirmed morphine (PF) 1 mg/mL injection 1 mg continuous intrathecal 11/07/23 11/26/24 solution infusion CONT acetaminophen 325 mg tablet 650 mg PO Q8H PRN Fever Or Pain 11/17/24 11/26/24 (Tylenol) Previous Rx's ?Medication ?Instructions ?Recorded potassium chloride 20 mEq 20 meq PO BID #60 tabs 11/18/24 tablet,extended release Allergies Allergy/AdvReac Type Severity Reaction Status Date / Time No Known Allergies Allergy Verified 11/26/24 11:21 PFSH PFSH Disclaimer: The information contained in this section may have been updated after the patient was seen, as this information can be updated by other users. Medical History (Updated 11/26/24 @ 13:24 by Kenia Jones MD) History of low potassium Esophageal thickening Screening for colon cancer Abdominal pain Posture abnormality Diarrhea Lumbar degenerative disc disease Peritonitis Urinary incontinence Bee sting reaction Anxiety Low vitamin B12 level Adjustment disorder Acute sinusitis Acute bronchitis Acute exacerbation of chronic obstructive pulmonary disease Rib injury BPH (benign prostatic hyperplasia) Asthma Hypertension Acute exacerbation of chronic low back pain Bronchitis Exposure to COVID-19 virus Sinusitis Carotid artery stenosis Asthma GERD (gastroesophageal reflux disease) History of DVT (deep vein thrombosis) HLD (hyperlipidemia) HTN (hypertension) Radiculopathy Neck pain Finger laceration Otitis media Pneumonia Lumbar radiculopathy Surgical History S/P insertion of sacral nerve stimulator S/P exploratory laparotomy Hx of colonoscopy History of colectomy History of elbow surgery History of surgery on lower extremity History of splenectomy History of back surgery Family History Other No significant family history Social History Smoking Status: Former smoker second hand exposure: No alcohol intake: never substance use type: denies use current occupational status: retired Travel in the last 8 weeks: None housing: house caffeine: Yes Have you lived/traveled outside [place] in past 30 days?: No Contact w/someone who lives/traveled outside US past 30 days?: No Exposure to someone with infectious disease in past 14 days?: No Do you have a fever (greater than 100.4 F or 38 C)?: No Have you tested positive for COVID-19: No Exposed to someone with COVID-19 in past 14 days?: No Do you have a sore throat?: No Do you have a cough?: No Do you have any weakness?: No Do you have any diarrhea?: No Are you experiencing any unusual bleeding?: No Do you have any muscle aches/pain?: No Do you have any abdominal pain?: No Are you experiencing loss of taste or smell?: No Other Medical History Have you received the Flu Vaccine for this season: No Have you received the Pneumonia Vaccine: Yes ROS Obtained: Yes All systems reviewed & no additional complaints except as documented Physical Exam General General appearance: alert and in no apparent distress Head Head exam: atraumatic and normocephalic Neck Neck exam: Present normal inspection and full ROM; Absent tenderness Chest Chest inspection: Present normal inspection; Absent tenderness Respiratory Respiratory exam: Present normal lung sounds bilaterally; Absent respiratory distress Cardiovascular Cardiovascular exam: Present regular rate and normal rhythm Abdominal Exam Abdominal exam: Present soft; Absent distention or tenderness Extremities Exam Extremities exam: Present other (Left leg tenderness palpation over the left hip femur and distal upper leg neurovasc intact) Neurological Exam Neurological exam: Present alert and oriented X3 Medical Decision Making Medical Records Screening: Per USPSTF and CDC recommendations, given the prevalence of disease in our region, it is our hospital?s policy to screen for HIV and viral Hepatitis for all patients aged 18 and over and those with ongoing risk factors. Siva Inquiry Pt receiving controlled substance: No Vital Signs: 11/26/24 10:55 11/26/24 10:56 11/26/24 11:00 Temperature 98.5 F Temperature Source Oral Pulse Rate 68 93 H Pulse Rate [Right] 93 H Respiratory Rate 17 13 Blood Pressure 160/92 H 136/92 H Blood Pressure [Right Arm] 160/92 H Blood Pressure Mean [Right Arm] 114 Blood Pressure Source [Right Arm] Automatic Cuff 02 Sat by Pulse Oximetry 96 98 98 Oxygen Delivery Method Room Air Room Air Room Air 11/26/24 11:30 11/26/24 12:00 11/26/24 12:32 Temperature Temperature Source Pulse Rate 86 63 105 H Pulse Rate [Right] Respiratory Rate 17 18 20 Blood Pressure 133/81 158/89 H 172/102 H Blood Pressure [Right Arm] Blood Pressure Mean [Right Arm] Blood Pressure Source [Right Arm] 02 Sat by Pulse Oximetry 100 97 96 Oxygen Delivery Method Room Air Room Air Room Air 11/26/24 13:00 Temperature Temperature Source Pulse Rate Pulse Rate [Right] Respiratory Rate 19 Blood Pressure 156/87 H Blood Pressure [Right Arm] Blood Pressure Mean [Right Arm] Blood Pressure Source [Right Arm] 02 Sat by Pulse Oximetry 95 Oxygen Delivery Method Room Air Lab Data Lab results reviewed: Yes I reviewed the patient's lab results. Lab Results 11/26/24 10:50: WBC 12.6 H, RBC 4.01 L, Hgb 11.8 L, Hct 36.2 L, MCV 90.3, MCH 29.4, MCHC 32.6, RDW 18.9 H, Plt Count 557 H, MPV 9.0, Neut % (Auto) 69.5, Lymph % (Auto) 21.3, [place] % (Auto) 8.3, Eos % (Auto) 0.2, Baso % (Auto) 0.4, Neut # (Auto) 8.8 H, Lymph # (Auto) 2.7, [place] # (Auto) 1.0, Eos # (Auto) 0.0, Baso # (Auto) 0.1, Sodium 138, Potassium 4.1, Chloride 101, Carbon Dioxide 28, Anion Gap 13.1, BUN 18 D, Creatinine 0.70, Estimated Creat Clear 60, Estimated GFR 111, Est GFR ( Amer) 134, Glucose 112 H, Calcium 9.4, Total Bilirubin 1.1, AST 30, ALT 19, Alkaline Phosphatase 118, Troponin I < 0.01, Total Protein 7.9, Albumin 3.7, Globulin 4.2 H, Albumin/Globulin Ratio 0.9 L 11/26/24 10:50 11/26/24 10:50 Orders (Tests/Meds): ED MEDICATIONS Generic Name Dose Route Start Last Admin Trade Name Freq PRN Reason Stop Dose Admin Sodium Chloride 10 ml 11/26/24 11:00 Sodium Chloride 0.9% 10ml Flush Syringe IV 12/26/24 10:59 NEEDED PRN Maintain IV Site ORDERS Category Date Time Status Femur XR left 2 views [XR femur LT 2V] Stat Exams 11/26/24 11:38 Completed XR hip LT 2-3V w/pelvis Stat Exams 11/26/24 11:00 Completed XR hip RT 2-3V w/pelvis Stat Exams 11/26/24 12:03 Taken XR knee LT 3V Stat Exams 11/26/24 11:00 Completed Complete Blood Count Auto Diff Stat Lab 11/26/24 10:50 Completed Comprehensive Metabolic Panel Stat Lab 11/26/24 10:50 Completed Troponin I Q3H Lab 11/26/24 14:15 Ordered Troponin I Q3H Lab 11/26/24 17:15 Ordered Troponin I Stat Lab 11/26/24 10:50 Completed UA [Urinalysis and Microscopic] Stat Lab 11/26/24 11:39 Ordered Medical Decision Narrative: 74-year-old GCS of 15 normal neurologic exam presents today with left lower extremity injury after a fall. Family states he has been a little bit more lethargic than normal but he has no other focal symptoms of an infection we will make sure he does have urinary tract infection or significant electrolyte abnormality. EKG was performed I personally interpreted shows a ventricular rate of 89 normal axis no acute ischemic changes or conduction abnormalities noted. Will get plain films of the hip pelvis and femur and reassess. Reassessment 1:25 PM x-rays were performed I personally interpreted shows no evidence of any acute fracture or dislocation. Patient was unable to walk on our assessment therefore PT OT were called and evaluated the patient recommended placement. They state they know this patient well he has apparently several times agreed to be admitted and then changed his mind with placement once he is in patient but they recommended that we try again. I spoke with hospital medicine who agreed to admit the patient for further evaluation and treatment. Critical Care Critical Care Time Critical Care Time: No
[2024-11-26 11:49] LABS: Troponin I < 0.01 ng/ml (0.00-0.034)
--- NOTE | 2024-11-26 11:50 | PC.NURSE ---
XR AT BEDSIDE FOR ADDITIONAL IMAGING
--- NOTE | 2024-11-26 12:03 | XR_ITS ---
FINAL REPORT CLINICAL HISTORY: R hip pain and with abrasion tenderness FINDINGS: Right hip Three views were obtained. There is no fracture or dislocation. The joint spaces appear normal. No soft tissue abnormality is identified. IMPRESSION: No acute process. Reviewed, Interpreted and Dictated by Abundio Estrella MD Transcribed by Holly Garcia Authenticated and [facility]
--- NOTE | 2024-11-26 12:43 | PC.NURSE ---
Spoke with in Rehab regarding PT/OT consult
--- NOTE | 2024-11-26 12:46 | PC.NURSE ---
attempted to get patient up on side of bed to see if he could stand and use the urinal and patient was unable to roll or get out of bed, ER MD made aware
--- NOTE | 2024-11-26 12:55 | PC.NURSE ---
Portable rad at BS.
--- NOTE | 2024-11-26 13:05 | PC.NURSE ---
PT/OT AT BEDSIDE
--- NOTE | 2024-11-26 13:22 | PC.NURSE ---
DR LEWIS SPEAKING WITH HOSPITALIST
--- NOTE | 2024-11-26 13:24 | PC.NURSE ---
SALES ARCHITECT NOTIFIED OF ADMISSION
--- NOTE | 2024-11-26 13:37 | HMH.PHAINT1 ---
Pharmacy Intervention Comments: MEDICATION RECONCILIATION COMPLETED ON PATIENT USING EXTERNAL FILL HISTORY FROM PHARMACY AND [facility] REPORT. -MILY TILLMAN, EVAND
--- NOTE | 2024-11-26 13:51 | PC.NURSE ---
called report to sal 2md floor rn
--- NOTE | 2024-11-26 13:58 | HMH.PTEV ---
Physical Therapy Evaluation Rehab PT IP Evaluation Start: 11/26/24 12:42 Freq: ONCE Status: Active Protocol: Document 11/26/24 13:53 DELIO (Rec: 11/26/24 13:57 DELIO [id number]) Subjective/History History History 74-year-old GCS of 15 normal neurologic exam presents today with left lower extremity injury after a fall. Family states he has been a little bit more lethargic than normal but he has no other focal symptoms of an infection we will make sure he does have urinary tract infection or significant electrolyte abnormality. EKG was performed I personally interpreted shows a ventricular rate of 89 normal axis no acute ischemic changes or conduction abnormalities noted. Will get plain films of the hip pelvis and femur and reassess. Subjective Subjective Pt reports he lives with his daughter in a single story home with ~2-3 [place]. Pt reports his daughter usually helps with ADLs and some mobility. Pt reports he uses a RW. New diagnosis of cancer in past 12 No months? Rehab PT IP Eval Objective Appearance Patient Behavior Appropriate,Cooperative Patient Orientation Person,Situation Difficulty following instructions none Speech Pattern Mumbled Ambulation Patient Able to Ambulate No Balance Ability to Arise Able, uses arms to help Sitting Balance Steady, safe Standing Balance Unsteady Transfers Bed Transfer Ability Moderate x 1 (50% assist) Sit to Stand Bed Transfer Ability Minimal x 2 (25% assist) Rehab PT IP prob,goals,plan Problems Date of Evaluation: 11/26/24 PT IP Problems Bed Mobility,Transfers,Gait, Balance,Self care,Safety Rehab Potential Rehab Potential Good Equipment Needs Assistive Devices Rolling / Wheeled Walker Plan PT Intervention Plan Bed Mobility,Transfers,Gait, Balance,Self care,Safety, Therapeutic Exercise Other Intervention Plan 1-2 times PT Plan Frequency Daily Duration LOS Discharge Goals Bed Transfer Ability Minimal x 1 (25% assist) Sit to Stand Chair Transfer Ability Minimal x 1 (25% assist) Ambulation Assistive Device Rolling Walker Ambulation Distance (feet) 10 Discharge Plan PT Discharge Plan Initial physical therapy evaluation performed. Patient presents below baseline at this time in functional mobility, transfers, and strength. Pt not safe to return home at this time d/t current level of functional mobility. PT recommending short-term rehabilitation stay upon d/c from [facility]. Pt would benefit from skilled PT while at [facility] to prevent further functional decline and maximize safety with mobility. Eval Complexity Eval Charge Codes 73940 - Moderate Complexity PHYSICIAN CERTIFICATION: I certify the specified therapy services for Refugio Kramer Jones are required, authorized, and reviewed every 30 days.
--- NOTE | 2024-11-26 13:59 | HMH.OTEV ---
OT Inpatient Evaluation Rehab OT IP Evaluation Start: 11/26/24 12:57 Freq: ONCE Status: Active Protocol: Document 11/26/24 13:55 [facility] (Rec: 11/26/24 13:59 [facility] [id number]) Rehab OT IP Assessment Subjective History Pt oriented x 2 on arrival. Pt agreeable to engage in therapy evaluation. Pt came to hospital today due to continued weakness. History and physical: Patient is a 74-year-old male presenting today with left leg pain. He is accompanied by family member who states that he has been a little bit lethargic over the last 24 hours. Fell yesterday. Specifically states that he has pain to the left hip femur and knee area. Has a history of surgical intervention in that area. Denies any other symptoms such as dysuria frequency urgency chest pain shortness of breath etc. No fevers or chills. Subjective Prior to being in the hospital pt reports he lived at home with his daughter. Pt claims normally he is independent with all ADLs such as dressing , bathing, and feeding. However he is dependent upon daughter for completion of all IADLs. Pt does use a rolling walker during functional transfers. Objective Patient Orientation Person,Birthday Right Upper Extremity Gross ROM Min Limitation <25% Left Upper Extremity Gross ROM Min Limitation <25% Shoulder ROM Limitations Muscle Weakness Elbow ROM Limitations Muscle Weakness Wrist Limitations of Range of Motion Muscle Weakness Bed Mobility bed mobility-scooting,bed mobility - supine/sit Assist Level Moderate x 1 (50% assist) Transfer Training Sit/Stand Transfer Assist Level Minimal x 1 (25% assist) Rehab OT IP prob,goals,plan Problems Date of Evaluation: 11/26/24 OT IP Problems Bed Mobility,Transfers,Balance ,Self care,Safety Rehab Potential Rehab Potential Good Equipment Needs Assistive Devices Rolling / Wheeled Walker Plan OT intervention Plan Bed Mobility,Transfers,Balance ,Self care,Safety,Therapeutic Exercise OT Plan Frequency Daily Duration LOS Discharge Goals Bed Mobility Ability Assistance x1 Sit to Stand Chair Transfer Ability Contact Guard/Hand Hold, Minimal x 1 (25% assist) Chair Transfer Ability Contact Guard/Hand Hold Chair Transfer Technique Sit to/from Ambulatory Chair Transfer Assistive Devices Rolling Walker Feeding Ability Assist with Tray Set Up Lower Body Dressing Ability Moderate Assistance Upper Body Dressing Ability Minimal Assistance Bathing Ability Maximum Assistance Performing Toilet Hygiene Ability Moderate Assistance Overall Commode/Toilet Transfer Ability Contact Guard Commode/Toilet Transfer Technique Sit to/from Ambulatory Oral Care Assist Minimal Assistance Decrease in Endurance Yes Discharge Plan OT Discharge Plan Pt will continue to be seen for OT services while at [facility]. At this time, pt would benefit most from short term rehab at SNF following hospital stay for continued skilled therapy. Continued skilled services will assist in improving strength, safety, endurance, ADL independence, and functional transfers to reach PLOF. Eval Complexity Eval Charge Codes 99100 - Moderate Complexity PHYSICIAN CERTIFICATION: I certify the specified therapy services for Refugio Jones are required, authorized, and reviewed every 30 days.
[2024-11-26 14:14] LABS: Appearance,Urine CLEAR (Clear); Blood, Urine TRACE-I (Negative); Color,Urine YELLOW (Yellow); Glucose,Urine (UA) Negative (Negative); Ketones,Urine 1+ (Negative); Leukocyte Esterase,Urine Negative (Negative); Microscopic, Urine URINE MICROSCOPIC (MICROSCOPIC); Nitrate,Urine Negative (Negative); PH,Urine 5.5 (5.0-8.5); Protein,Urine 1+ (Negative); Specific Gravity, Urine >= 1.030 (1.005-1.030); Urobilinogen,Urine 0.2 EU/dl (0.2)
[2024-11-26 14:46] LABS: Bilirubin,Urine Negative (Negative)
--- NOTE | 2024-11-26 15:08 | SW/DCPLANNER ---
I spoke w/ this patient regarding plans once medically stable for discharge. PT/OT evaluated patient and recommended SNF level of care. Patient is agreeable to placement pending daughter is agreeable as well. Patient was discharged from [facility] on 10/29/24 and would prefer to return to same facility. I did call and speak w/ patient's daughter (Maureen) whom is agreeable to placement at [facility] as well. Patient information has been faxed to [facility]. Jaye reviewed patient information and confirmed they can accept patient and precert will be started today.
[2024-11-26 15:10] LABS: Bacteria,Urine 1+ /lpf; RBC,Urine Occasional #/hpf (0-3); Squamous Epithelial Cell,Urine Occasional #/hpf (0-5); WBC,Urine Occasional #/hpf (0-3)
--- NOTE | 2024-11-26 16:28 | P.HPDS_ITS ---
General Admission date:: 11/26/24 *Admission Date: 11/26/24 *Chief complaint: Fall at home *History of present illness: Mr. Refugio Jones is a 74-year-old male with a medical history significant for progressive debility, mild cognitive impairment, hypertension, chronic pain syndrome presents again for a fall at home to his right hip. Of note, he was admitted for similar presentations quite a few times in the past few months unfortunately. Discharged on 10/07/[address] [facility], and was discharged there early October to [facility]. He states he lost his balance today and fell on his right hip. Workup in the ED unremarkable for acute findings/fractures. No obvious bruising/hematoma. #Self-care deficit #Progressive debility #Mild cognitive impairment #Severe protein malnutrition ? Unfortunately, due to patient's chronic pain syndrome he has had progressive physical debility and decline over the past months. He is unable to take care of himself at home. Would highly benefit from SNF. - On previous admission, albumin was low at 2.9. TSH obtained and normal at 2.7. A1c normal at 4.9. ? Ensure supplementation with high-protein meals. ? PT/OT consulted, recommended SNF placement. [facility] graciously offered to accept patient today. #Chronic back pain ? History of closed L1 vertebral fracture, bilateral A/C joint arthritis. - Patient has morphine pump in his back. [facility] Disclaimer: The information contained in this section may have been updated after the patient was seen, as this information can be updated by other users. Medical History History of low potassium Esophageal thickening Screening for colon cancer Abdominal pain Posture abnormality Diarrhea Lumbar degenerative disc disease Peritonitis Urinary incontinence Bee sting reaction Anxiety Low vitamin B12 level Adjustment disorder Acute sinusitis Acute bronchitis Acute exacerbation of chronic obstructive pulmonary disease Rib injury BPH (benign prostatic hyperplasia) Asthma Hypertension Acute exacerbation of chronic low back pain Bronchitis Exposure to COVID-19 virus Sinusitis Carotid artery stenosis Asthma GERD (gastroesophageal reflux disease) History of DVT (deep vein thrombosis) HLD (hyperlipidemia) HTN (hypertension) Radiculopathy Neck pain Finger laceration Otitis media Pneumonia Lumbar radiculopathy Surgical History S/P insertion of sacral nerve stimulator S/P exploratory laparotomy Hx of colonoscopy History of colectomy History of elbow surgery History of surgery on lower extremity History of splenectomy History of back surgery Family History Other No significant family history Social History (Updated 11/26/24 @ 14:16 by Nika Marques RN) Smoking Status: Former smoker second hand exposure: No alcohol intake: never substance use type: denies use current occupational status: retired Travel in the last 8 weeks: None housing: house caffeine: Yes Have you lived/traveled outside [place] in past 30 days?: No Contact w/someone who lives/traveled outside US past 30 days?: No Exposure to someone with infectious disease in past 14 days?: No Do you have a fever (greater than 100.4 F or 38 C)?: No Have you tested positive for COVID-19: No Exposed to someone with COVID-19 in past 14 days?: No Do you have a sore throat?: No Do you have a cough?: No Do you have any weakness?: No Do you have any diarrhea?: No Are you experiencing any unusual bleeding?: No Do you have any muscle aches/pain?: No Do you have any abdominal pain?: No Are you experiencing loss of taste or smell?: No Other Medical History Have you received the Flu Vaccine for this season: No Have you received the Pneumonia Vaccine: No Exam Data for Last 24 hours Vital signs and Labs for Last 24 Hours: Temp Pulse Resp BP Pulse Ox O2 Del Method 98.3 F 96 H 18 150/78 H 97 Room Air 11/26/24 15:51 11/26/24 15:51 11/26/24 15:51 11/26/24 15:51 11/26/24 15:51 11/26/24 15:51 Laboratory Results - last 24 hr 11/26/24 10:50: WBC 12.6 H, RBC 4.01 L, Hgb 11.8 L, Hct 36.2 L, MCV 90.3, MCH 29.4, MCHC 32.6, RDW 18.9 H, Plt Count 557 H, MPV 9.0, Neut % (Auto) 69.5, Lymph % (Auto) 21.3, Treasure % (Auto) 8.3, Eos % (Auto) 0.2, Baso % (Auto) 0.4, Neut # (Auto) 8.8 H, Lymph # (Auto) 2.7, Treasure # (Auto) 1.0, Eos # (Auto) 0.0, Baso # (Auto) 0.1, Sodium 138, Potassium 4.1, Chloride 101, Carbon Dioxide 28, Anion Gap 13.1, BUN 18 D, Creatinine 0.70, Estimated Creat Clear 60, Estimated GFR 111, Est GFR ( Amer) 134, Glucose 112 H, Calcium 9.4, Total Bilirubin 1.1, AST 30, ALT 19, Alkaline Phosphatase 118, Troponin I < 0.01, Total Protein 7.9, Albumin 3.7, Globulin 4.2 H, Albumin/Globulin Ratio 0.9 L 11/26/24 13:25: Urine Color Yellow, Urine Appearance Clear, Urine pH 5.5, Ur Specific [place] >= 1.030, Urine Protein 1+ A, Urine Glucose (UA) Negative, Urine Ketones 1+, Urine Blood Trace-i, Urine Nitrate Negative, Urine Bilirubin Negative, Urine Urobilinogen 0.2, Ur Leukocyte Esterase Negative, Urine RBC Occasional, Urine WBC Occasional, Ur Squamous Epith Cells Occasional, Urine Bacteria 1+ I & O for Last 24 hours: Intake & Output 11/23/24 11/24/24 11/25/24 11/26/24 23:59 23:59 23:59 23:59 Output Total 0 / 0 Balance 0 / 0 Weight 59.194 kg Constitutional Constitutional: no acute distress *Routine HEENT Exam Head: Present normocephalic Eye: Present EOMI and PERRL ENT: Present mucous membranes moist *Routine Neck Exam Neck: Present supple; Absent lymphadenopathy *Routine Respiratory Exam Respiratory: Present CTA bilaterally *Routine Cardiovascular Exam Cardiovascular: Present RRR *Routine Abdominal Exam Abdominal: Present soft and normoactive bowel sounds; Absent tenderness *Routine Rectal Exam Rectal:: deferred *Routine Genitalia Exam Genitalia:: deferred *Routine Extremities Exam Extremities: Absent cyanosis, clubbing or edema Comments: Mild tenderness to palpation over the right hip without obvious laxity, hematoma/bruising. *Routine Skin Exam Skin: Present warm; Absent rash *Routine Neurological Exam Neurological: Present alert and oriented X3 Meds Home Medications and Allergies Home Medications ?Medication ?Instructions ?Recorded ?Confirmed ?Type morphine (PF) 1 mg/mL injection 1 mg continuous intrathecal 11/07/23 11/26/24 History solution infusion CONT acetaminophen 325 mg tablet 650 mg PO Q8HP PRN Fever Or Pain 11/17/24 11/26/24 History (Tylenol) potassium chloride 20 mEq 20 meq PO BID #60 tabs 11/18/24 11/26/24 Rx tablet,extended release New Prescriptions to Start Prescriptions: Allergies Allergy/AdvReac Type Severity Reaction Status Date / Time No Known Allergies Allergy Verified 11/26/24 11:21 Hospital Course Hospital Course Hospital Course: Mr. Refugio Jones is a 74-year-old male with a medical history significant for progressive debility, mild cognitive impairment, hypertension, chronic pain syndrome presents again for a fall at home to his right hip. Of note, he was admitted for similar presentations quite a few times in the past few months unfortunately. Discharged on 10/07/[address] [facility], and was discharged there early October to [facility]. He states he lost his balance today and fell on his right hip. Workup in the ED unremarkable for acute findings/fractures. No obvious bruising/hematoma. #Self-care deficit #Progressive debility #Mild cognitive impairment #Severe protein malnutrition ? Unfortunately, due to patient's chronic pain syndrome he has had progressive physical debility and decline over the past months. He is unable to take care of himself at home. Would highly benefit from SNF. - On previous admission, albumin was low at 2.9. TSH obtained and normal at 2.7. A1c normal at 4.9. ? Ensure supplementation with high-protein meals. ? PT/OT consulted, recommended SNF placement. [facility] graciously offered to accept patient today. #Chronic back pain ? History of closed L1 vertebral fracture, bilateral A/C joint arthritis. - Patient has morphine pump in his back. Results Data Completed and Pending Labs on day of discharge: Labs from last 24 hours 11/26/24 11/26/24 13:25 10:50 WBC 12.6 H RBC 4.01 L Hgb 11.8 L Hct 36.2 L MCV 90.3 MCH 29.4 MCHC 32.6 RDW 18.9 H Plt Count 557 H MPV 9.0 Neut % (Auto) 69.5 Lymph % (Auto) 21.3 Treasure % (Auto) 8.3 Eos % (Auto) 0.2 Baso % (Auto) 0.4 Neut # (Auto) 8.8 H Lymph # (Auto) 2.7 Treasure # (Auto) 1.0 Eos # (Auto) 0.0 Baso # (Auto) 0.1 Sodium 138 Potassium 4.1 Chloride 101 Carbon Dioxide 28 Anion Gap 13.1 BUN 18 D Creatinine 0.70 Estimated Creat Clear 60 Estimated GFR 111 Est GFR ( Amer) 134 Glucose 112 H Calcium 9.4 Total Bilirubin 1.1 AST 30 ALT 19 Alkaline Phosphatase 118 Troponin I < 0.01 Total Protein 7.9 Albumin 3.7 Globulin 4.2 H Albumin/Globulin Ratio 0.9 L Urine Color Yellow Urine Appearance Clear Urine pH 5.5 Ur Specific [place] >= 1.030 Urine Protein 1+ A Urine Glucose (UA) Negative Urine Ketones 1+ Urine Blood Trace-i Urine Nitrate Negative Urine Bilirubin Negative Urine Urobilinogen 0.2 Ur Leukocyte Esterase Negative Urine RBC Occasional Urine WBC Occasional Ur Squamous Epith Cells Occasional Urine Bacteria 1+ Discharge Plan Disposition Patient Disposition: [facility] Condition: Fair Discharge Order Discharge Orders: Discharge Order (Routine); Ordered 11/26/24 Ordered By: Rocael [place] Follow up Plan Prescriptions/Medication Reconciliation: Continued acetaminophen [Tylenol] 325 mg tablet 650 mg PO Q8HP PRN (Reason: Fever Or Pain) potassium chloride 20 mEq tablet extended release 20 meq PO BID Qty: 60 0RF morphine (PF) 1 mg/mL Solution 1 mg continuous intrathecal infusion CONT Problem Reconciliation Problems Reviewed?: Yes Patient Discharge Instructions Patient Instructions: DI for Failure to Thrive Print Language: [place]i Providers Primary Care Provider: Shun Dsouza Admit Provider: Rocael [place] Attending Provider: Rocael [place]
== END 2024-11-26 18:17 ==
LOC: ER 13:24 → 2ND 13:30
PROVIDERS: Admitting Provider Student in an Organized Health Care Education/Training Program; Emergency Provider Student in an Organized Health Care Education/Training Program; PCP Internal Medicine; Visit Provider Student in an Organized Health Care Education/Training Program
DX: E43 Unspecified severe protein-calorie malnutrition (principal); I10 Essential (primary) hypertension; G31.84 Mild cognitive impairment of uncertain or unknown etiology; E78.5 Hyperlipidemia, unspecified; G89.4 Chronic pain syndrome; M54.16 Radiculopathy, lumbar region; Z91.81 History of falling; Z87.81 Personal history of (healed) traumatic fracture; W18.30XA Fall on same level, unspecified, initial encounter; Z96.89 Presence of other specified functional implants; Z79.891 Long term (current) use of opiate analgesic; Z68.1 Body mass index [BMI] 19.9 or less, adult; Z87.891 Personal history of nicotine dependence; Z74.1 Need for assistance with personal care; R53.81 Other malaise; Y93.9 Activity, unspecified; M13.812 Other specified arthritis, left shoulder; M13.811 Other specified arthritis, right shoulder
CPT/HCPCS: 73502; 73552; 73562; 80053; 81001; 84484; 85025; 93005; 97162; 97166; 99285; G0378

== ENCOUNTER 2025-01-21 10:22 | Emergency (ER) | payer MEDICARE, SELFPAY ==
[2025-01-21] VITALS (12 sets, daily range): BP systolic 119–154; BP diastolic 67–93; PULSE 55–92; RESP 18; TEMP 37.1–37.2; O2SAT 96–100; BMI 22.8
--- NOTE | 2025-01-21 10:26 | ECG_ITS ---
APPROVED REPORT Exam: Resting ECG HR:87 bpm ECG Measurements Heart Rate 87 AXES AR 137 P 77 QRSd 80 QRS 15 QT 376 T 67 QTc 420 Conclusion SINUS RHYTHM WITH OCCASIONAL SUPRAVENTRICULAR PREMATURE COMPLEXES No STEMI Electronically signed by : BRIAN FINCH, 01/21/2025 16:17:24
--- NOTE | 2025-01-21 10:56 | CT_ITS ---
FINAL REPORT TECHNIQUE: Thin section axial images were obtained from skull base to vertex without contrast. Coronal and sagittal reconstruction images were obtained from the axial data. Exam was performed using dose reduction techniques such as automated exposure control, adjustment of the mA and kV according to patient size, and use of iterative reconstruction technique. CLINICAL HISTORY: fall age>65, back pain, weakness COMPARISON: 10/06/2024 FINDINGS: There is atrophy. No mass effect or midline shift. No intracranial hemorrhage. No hydrocephalus. Periventricular low density is likely related to changes of chronic small vessel ischemia. The basilar cisterns are preserved. The posterior fossa is without acute abnormality. The soft tissues are without acute abnormality. No acute osseous abnormality is identified. IMPRESSION: No acute intracranial abnormality. Atrophy and changes suggesting chronic small vessel ischemia, stable when compared to the prior exam of 10/06/2024. Reviewed, Interpreted and Dictated by Gemini Kim MD Transcribed by Pamela Gibson Authenticated and . [facility]
--- NOTE | 2025-01-21 10:56 | XR_ITS ---
FINAL REPORT CLINICAL HISTORY: fall out of bed, general weakness COMPARISON: 10/06/2024 FINDINGS: A portable view of the chest was obtained. Cardiac and mediastinal silhouettes are within normal limits. The lungs are clear. There is no pleural effusion or pneumothorax. IMPRESSION: No acute process on this portable exam. Reviewed, Interpreted and Dictated by Gemini Kim MD Transcribed by Pamela Gibson Authenticated and . [facility]
--- NOTE | 2025-01-21 10:56 | XR_ITS ---
FINAL REPORT CLINICAL HISTORY: fall age>65, back pain, weakness COMPARISON: CT of the pelvis 10/06/2024 FINDINGS: SINGLE VIEW PELVIS: A single view of the pelvis was obtained. There is no acute fracture or dislocation. Postoperative changes are noted of a sacroiliac fusion on the left, and post-ORIF changes in the left hip. There is a chronic deformity of the left inferior pubic ramus noted on the prior CT. Visualized joint spaces are normally aligned. Vascular calcifications are again noted. There are degenerative changes in the hips bilaterally. IMPRESSION: No acute bony abnormality. Reviewed, Interpreted and Dictated by Gemini Kim MD Transcribed by Pamela Gibson Authenticated and [facility]
--- NOTE | 2025-01-21 10:56 | CT_ITS ---
FINAL REPORT TECHNIQUE: Thin section axial images were obtained through the lumbar spine without contrast. Sagittal and coronal reconstruction images were obtained from the axial data. Exam was performed using dose reduction techniques. This study was performed with techniques to keep radiation doses as low as reasonably achievable (ALARA). Individualized dose reduction techniques using automated exposure control or adjustment of mA and/or kV according to the patient's size were employed. CLINICAL HISTORY: fall age>65, back pain, weakness COMPARISON: 10/06/2024 FINDINGS: There is no acute fracture or acute malalignment of the lumbar spine. There is no change in the chronic L1 compression fracture since the prior CT of 10/06/2024. Osteopenia is noted. There is mild multilevel degenerative disease with disc space narrowing and osteophyte formation, unchanged since the prior. There is no significant central stenosis. There is a surgical screw noted in the L5-S1 level, stable, as well as posterior fusion at the L4-5 level. Paraspinal soft tissues are within normal limits. There is no paraspinal mass or fluid collection. A stimulator device is noted in the posterior soft tissues with a small catheter in the canal. IMPRESSION: No acute abnormality of the lumbar spine. Mild multilevel degenerative disease. Reviewed, Interpreted and Dictated by Gemini Kim MD Transcribed by Pamela Gibson Authenticated and [facility]
--- NOTE | 2025-01-21 10:56 | CT_ITS ---
FINAL REPORT TECHNIQUE: Thin section axial images were obtained through the thoracic spine without contrast. Sagittal and coronal images were obtained from the axial data. This study was performed with techniques to keep radiation doses as low as reasonably achievable (ALARA). Individualized dose reduction techniques using automated exposure control or adjustment of mA and/or kV according to the patient's size were employed. CLINICAL HISTORY: fall age>65, back pain, weakness COMPARISON: 10/06/2024 FINDINGS: There is no acute fracture of the thoracic spine. There is no malalignment. Multilevel degenerative disease is noted with osteophyte formation and multilevel disc space narrowing. No acute paraspinal abnormality is identified. IMPRESSION: No acute osseous abnormality of the thoracic spine. Degenerative disc disease, stable. Reviewed, Interpreted and Dictated by Gemini Kim MD Transcribed by Pamela Gibson Authenticated and [facility]
--- NOTE | 2025-01-21 10:56 | CT_ITS ---
FINAL REPORT TECHNIQUE: Thin section axial images were obtained through the cervical spine without contrast. Multiplanar reconstruction images were obtained from the axial data. Exam was performed using dose reduction techniques. This study was performed with techniques to keep radiation doses as low as reasonably achievable (ALARA). Individualized dose reduction techniques using automated exposure control or adjustment of mA and/or kV according to the patient's size were employed. CLINICAL HISTORY: fall age>65, back pain, weakness COMPARISON: 10/06/2024 FINDINGS: There are postoperative changes of an anterior cervical fusion at C5-6 level, also seen on the prior exam of 10/06/2024. There is no acute fracture or acute malalignment of the cervical spine. There is anterolisthesis of C7 on T1, stable. There is no evidence of unilateral or bilateral facet lock. Vertebral body height is preserved. No acute paraspinal abnormality is identified. Multilevel degenerative disc disease is again noted, stable. IMPRESSION: No acute osseous abnormality of the cervical spine. Postoperative and degenerative changes as described above, stable since the prior exam of 10/06/2024. Reviewed, Interpreted and Dictated by Gemini Kim MD Transcribed by Pamela Gibson Authenticated and [facility]
[2025-01-21 11:02] LABS: Basophils % 0.3 % (0.1-2.0); Eosinophils # 0.1 K/mm3 (0.0-0.4); Hematocrit 33.7 % (42.0-52.0); Hemoglobin 11.3 g/dL (14.1-18.0); Lymphocytes # 3.2 K/mm3 (0.7-4.5); Lymphocytes % 33.3 % (10-50); Mean Corpuscular HGB Conc 33.5 g/dL (31.8-35.4); Mean Corpuscular Hemoglobin 30.1 pg (27.0-31.2); Mean Corpuscular Volume 89.9 fl (80-94); Mean Platelet Volume 8.9 fl (7.4-10.4); Monocytes # 0.6 K/mm3 (0.1-1.0); Monocytes % 6.5 % (1.7-9.3); Neutrophils # 5.6 K/mm3 (1.8-7.8); Neutrophils % 58.7 % (37.0-80.0); Platelet Count 481 K/mm3 (142-424); Red Blood Count 3.75 M/mm3 (4.60-6.20); Red Cell Distribution Width 14.7 % (11.5-17.5); White Blood Count 9.5 K/mm3 (4.8-10.8)
[2025-01-21 11:05] LABS: Albumin Level 3.2 g/dl (3.5-5.0); Chloride 102 mmol/L (98-107); Potassium 3.4 mmoL/L (3.5-5.1); Sodium 137 mmol/L (136-145)
[2025-01-21 11:08] LABS: Alanine Aminotransferase 19 U/L (12-78); Albumin/Globulin Ratio 0.9 (1.1-1.8); Alkaline Phosphatase 98 U/L (38-126); Anion Gap 9.4 mEq/L (5-15); Aspartate Amino Transferase 31 U/L (17-59); Bilirubin,Total 0.4 mg/dl (0.2-1.3); Blood Urea Nitrogen 15 mg/dl (9-20); Calcium 8.9 mg/dl (8.4-10.2); Carbon Dioxide 29 mmol/L (22.0-30.0); Estimated Glomerular Filt Rate 132 ml/min (>60); GFR (African American) 160 ML/MIN (>60); Globulin 3.4 g/dL (1.3-3.2); Glucose 122 mg/dl (74-100); Magnesium 1.8 mg/dl (1.6-2.3); Phosphorous 2.6 mg/dl (2.5-4.5); Total Protein,Serum 6.6 g/dl (6.3-8.2)
--- NOTE | 2025-01-21 11:18 | HMH.EDGENADL ---
Discharge Plan Disposition Patient Disposition: Home, Self-Care Condition: Good Prescriptions Prescriptions: No Action acetaminophen [Tylenol] 325 mg tablet 650 mg PO Q8HP PRN (Reason: Fever Or Pain) potassium chloride 20 mEq tablet extended release 20 meq PO BID Qty: 60 0RF morphine (PF) 1 mg/mL Solution 1 mg continuous intrathecal infusion CONT Referrals Follow up/Referrals: Senia Espinoza APRN [Primary Care Provider] - See instructions Activity Restrictions/Add. Instructions Additional Instructions/Restrictions: You were evaluated in the emergency department today. Care management is working on outpatient placement for you. Please follow-up closely with primary care. Return to the emergency department for new or worsening symptoms. Clinical Impressions Clinical Impression: Declining functional status, Inability to walk, Hypokalemia Instructions Patient Instructions: DI for Hypokalemia, DI for Muscle Weakness Print Language Print Language: Luxembourgish Discharge ED Provider: Gia Bazzi General Adult HPI General Chief complaint: Weakness Stated complaint: weakness Time Seen by Provider: 01/21/25 10:23 History of Present Illness HPI narrative: This patient is a 74-year-old male with a history of chronic malnutrition, failure to thrive, general weakness, decubitus ulcer, and chronic spine fractures presenting to the emergency department for evaluation with concern for progressive functional decline, continued back pain, inability to ambulate and care for himself at home. He is requesting placement, stating he wants to go to [place]. He did have a fall out of bed 4 days ago but denies any specific injury from this. No focal weakness on 1 side versus the other, no numbness, tingling, saddle anesthesia. No fevers or infectious symptoms. He just notes that he overall has chronic back pain and cannot care for himself, walk. Patient was placed at [facility] until about a month ago, at which point he was discharged home. Since going home, he has had progressive decline and cannot care for himself anymore, seeking placement again. Related Data Home Medications ?Medication ?Instructions ?Recorded ?Confirmed morphine (PF) 1 mg/mL injection 1 mg continuous intrathecal 11/07/23 11/26/24 solution infusion CONT acetaminophen 325 mg tablet 650 mg PO Q8HP PRN Fever Or Pain 11/17/24 11/26/24 (Tylenol) Previous Rx's ?Medication ?Instructions ?Recorded potassium chloride 20 mEq 20 meq PO BID #60 tabs 11/18/24 tablet,extended release Allergies Allergy/AdvReac Type Severity Reaction Status Date / Time No Known Allergies Allergy Verified 11/26/24 11:21 [facility] Disclaimer: The information contained in this section may have been updated after the patient was seen, as this information can be updated by other users. Medical History Elevated WBC count History of low potassium Esophageal thickening Screening for colon cancer Abdominal pain Posture abnormality Diarrhea Lumbar degenerative disc disease Peritonitis Urinary incontinence Bee sting reaction Anxiety Low vitamin B12 level Adjustment disorder Acute sinusitis Acute bronchitis Acute exacerbation of chronic obstructive pulmonary disease Rib injury BPH (benign prostatic hyperplasia) Asthma Hypertension Acute exacerbation of chronic low back pain Bronchitis Exposure to COVID-19 virus Sinusitis Carotid artery stenosis Asthma GERD (gastroesophageal reflux disease) History of DVT (deep vein thrombosis) HLD (hyperlipidemia) HTN (hypertension) Radiculopathy Neck pain Finger laceration Otitis media Pneumonia Lumbar radiculopathy Surgical History S/P insertion of sacral nerve stimulator S/P exploratory laparotomy Hx of colonoscopy History of colectomy History of elbow surgery History of surgery on lower extremity History of splenectomy History of back surgery Family History Other No significant family history Social History Smoking Status: Never smoker second hand exposure: No alcohol intake: never substance use type: denies use current occupational status: retired Travel in the last 8 weeks: None housing: house caffeine: Yes Have you lived/traveled outside US in past 30 days?: No Contact w/someone who lives/traveled outside US past 30 days?: No Exposure to someone with infectious disease in past 14 days?: No Do you have a fever (greater than 100.4 F or 38 C)?: No Have you tested positive for COVID-19: No Exposed to someone with COVID-19 in past 14 days?: No Do you have a sore throat?: No Do you have a cough?: No Do you have any weakness?: Yes Do you have any diarrhea?: No Are you experiencing any unusual bleeding?: No Do you have any muscle aches/pain?: No Do you have any abdominal pain?: No Are you experiencing loss of taste or smell?: No Other Medical History Have you received the Flu Vaccine for this season: No Have you received the Pneumonia Vaccine: No ROS Obtained: Yes All systems reviewed & no additional complaints except as documented Physical Exam General General appearance: alert and cachectic Comment: Chronically ill-appearing Head Head exam: atraumatic and normocephalic Eye Eye exam: Present normal appearance, PERRL and EOMI ENT ENT exam: Present normal exam, normal oropharynx, mucous membranes moist and normal external ear exam Neck Neck exam: Present normal inspection, full ROM and trachea midline; Absent tenderness Chest Chest inspection: Present normal inspection and symmetric chest wall rise; Absent tenderness Respiratory Respiratory exam: Present normal lung sounds bilaterally; Absent respiratory distress, wheezes, stridor or accessory muscle use Cardiovascular Cardiovascular exam: Present regular rate and normal rhythm Abdominal Exam Abdominal exam: Present soft; Absent distention, tenderness or guarding Extremities Exam Extremities exam: Present normal inspection, full ROM and normal capillary refill; Absent tenderness or edema Back Exam Back exam: Present normal inspection and full ROM; Absent tenderness Neurological Exam Neurological exam: Present alert, oriented X3 and other (Generally weak without focal deficit); Absent motor sensory deficit Psychiatric Psychiatric exam: Present normal affect and normal mood Skin Skin exam: Present warm and dry Medical Decision Making Medical Records Medical records reviewed: Yes I reviewed the patient's medical records. Screening: Per USPSTF and CDC recommendations, given the prevalence of disease in our region, it is our hospital?s policy to screen for HIV and viral Hepatitis for all patients aged 18 and over and those with ongoing risk factors. Siva Inquiry Pt receiving controlled substance: No Vital Signs: 01/21/25 10:22 01/21/25 10:30 01/21/25 11:00 Temperature 98.7 F Temperature Source Oral Pulse Rate 92 H 83 Pulse Rate [Right] 81 Respiratory Rate 18 Blood Pressure 145/90 H 120/75 Blood Pressure [Right Arm] 152/85 H Blood Pressure Mean [Right Arm] 107 02 Sat by Pulse Oximetry 96 96 97 Oxygen Delivery Method Room Air Room Air Room Air 01/21/25 11:30 01/21/25 12:00 01/21/25 12:30 Temperature Temperature Source Pulse Rate 55 L 81 80 Pulse Rate [Right] Respiratory Rate Blood Pressure 154/93 H 125/81 141/83 H Blood Pressure [Right Arm] Blood Pressure Mean [Right Arm] 02 Sat by Pulse Oximetry 97 97 98 Oxygen Delivery Method Room Air Room Air Room Air 01/21/25 13:30 01/21/25 14:01 01/21/25 14:31 Temperature Temperature Source Pulse Rate 78 86 75 Pulse Rate [Right] Respiratory Rate Blood Pressure 119/70 135/75 138/67 Blood Pressure [Right Arm] Blood Pressure Mean [Right Arm] 02 Sat by Pulse Oximetry 99 98 99 Oxygen Delivery Method Lab Data Lab results reviewed: Yes I reviewed the patient's lab results. Lab Results 01/21/25 10:32: WBC 9.5, RBC 3.75 L, Hgb 11.3 L, Hct 33.7 L, MCV 89.9, MCH 30.1, MCHC 33.5, RDW 14.7, Plt Count 481 H, MPV 8.9, Neut % (Auto) 58.7, Lymph % (Auto) 33.3, [place] % (Auto) 6.5, Eos % (Auto) 1.0, Baso % (Auto) 0.3, Neut # (Auto) 5.6, Lymph # (Auto) 3.2, [place] # (Auto) 0.6, Eos # (Auto) 0.1, Baso # (Auto) 0.0, Sodium 137, Potassium 3.4 L, Chloride 102, Carbon Dioxide 29, Anion Gap 9.4, BUN 15, Creatinine 0.60 L, Estimated GFR 132, Est GFR ( Amer) 160, Glucose 122 H, Calcium 8.9, Phosphorus 2.6, Magnesium 1.8, Total Bilirubin 0.4, AST 31, ALT 19, Alkaline Phosphatase 98, Total Protein 6.6, Albumin 3.2 L, Globulin 3.4 H, Albumin/Globulin Ratio 0.9 L, TSH 2.59, Thyroxine (T4) 6.7 01/21/25 10:32 01/21/25 10:32 Orders (Tests/Meds): ORDERS Category Date Time Status CT cervical spine wo con Stat Cat Scan 01/21/25 10:[address] head/brain wo con Stat Cat Scan 01/21/25 10:[address] lumbar spine wo con Stat Cat Scan 01/21/25 10:[address] thoracic spine wo con Stat Cat Scan 01/21/25 10:56 Completed Care Management Consult [Consult to Case Management] [ Cons 01/21/25 11:16 Active CONS] Routine CXR --portable [XR chest portable] Stat Exams 01/21/25 10:56 Completed Pelvis XR 1-2 views [XR pelvis 1-2V] Stat Exams 01/21/25 10:56 Completed Complete Blood Count Auto Diff Stat Lab 01/21/25 10:32 Completed Comprehensive Metabolic Panel Stat Lab 01/21/25 10:32 Completed MAG [Magnesium] Stat Lab 01/21/25 10:32 Completed PHOS [Phosphorous] Stat Lab 01/21/25 10:32 Completed T4 (Thyroxine) Stat Lab 01/21/25 10:32 Completed TSH [Thyroid Stimulating Hormone] Stat Lab 01/21/25 10:32 Completed UA [Urinalysis and Microscopic] Stat Lab 01/21/25 10:57 Ordered ECG Data Tracing #1: I reviewed this ECG and interpreted as documented below: Normal sinus rhythm with a ventricular rate of [address] changes concerning for ischemia. Occasional PACs, sinus arrhythmia ECG initial impression date: 01/21/25 ECG initial impression time: 10:27 Medical Decision Narrative: In summary, this patient is a 74-year-old male presenting to the Emergency Department for evaluation of general weakness, fall to bed 4 days ago, he [facility]. Differential diagnoses considered include but are not limited to failure to thrive, malnutrition, traumatic injury from fall, electrolyte derangements, MARITA. Ruling out the most morbid conditions drove assessment. It should be noted patient's history includes general debility, failure to thrive, malnutrition, hypertension, hyperlipidemia which likely are not at goal therapy. This complicates all aspects of care by increasing patient's risk for morbidity. I reviewed patient's past medical records and noted previous evaluations for similar issues in the past. He was placed to [facility] up until about a month ago. On exam, the patient is sitting upright in no acute distress. He is alert and oriented, he is chronically ill-appearing, cachectic. No saddle anesthesia, incontinence, or suggestion of spinal cord compression. He is generally weak without focal deficit but is able to move both legs equally. Workup included CT head, CT spines, chest x-ray, pelvic x-ray given the recent fall to evaluate for potential traumatic injury as well as basic lab evaluation. I independently interpreted CT scans prior to the radiologist read and noted no acute fractures, no intracranial hemorrhage. Please see their read for final interpretation. Labs were obtained that demonstrated mild hypokalemia for which oral replacement was ordered. Patient tolerated this fine. He also has mild anemia which is nonactionable at this time. Labs otherwise are reassuring. On reassessment, patient is lying comfortably at his baseline. I had PT/OT evaluation done, and they recommended placement for further care. Unfortunately, care management was unable to place patient successfully from the emergency department. He does not meet medical necessity for admission at this time given that he does not have any acute issue and only has chronic decompensation of his chronic issues that have been ongoing for months. He has family support to continue caring for him at home as they have been since he was discharged from the nursing facility a month ago. Given this, he was discharged back home to the care of his family, and care management is still working to place him on an outpatient basis. Strict return precautions given. Critical Care Critical Care Time Critical Care Time: No
[2025-01-21 11:25] LABS: T4 (Thyroxine) 6.7 ug/dl (5.53-11.0)
[2025-01-21 11:39] LABS: Thyroid Stimulating Hormone 2.59 uIU/mL (0.465-4.68)
--- NOTE | 2025-01-21 13:05 | PC.NURSE ---
Heather PUENTE spoke with PT/OT for evaluations on patient
--- NOTE | 2025-01-21 13:11 | SW/DCPLANNER ---
Addendum entered by Mary Barnes 02/04/25 09:55: I received a phone call from patient's daughter requesting that information be faxed to Gia p[facility]rez/ [facility]. Addendum entered by Mary Barnes 01/22/25 08:23: I have reached out to Rhea w/ [facility] and Radha pérez/ [facility] to follow up w/ patient and daughter at home. Addendum entered by Mary Barnes 01/21/25 14:19: Per Heather w/ ED patient will discharge home from ED. I will continue to work on LTC for this patient and follow up via phone w/ daughter. Original Note: I spoke w/ this patient and his daughter about plans once patient is ready for discharge. Patient recently signed out AMA from [facility] due to wanting to use tobacco products. Patient is interested in [facility] or [facility] ICF level of care. Daughter concurs w/ this plan. I have faxed patient information to both facilities. I have updated ER staff and patient/family is patient does not have a medical reason to be admitted we can discharge home and work on placement from home: patient and daughter agree w/ this plan.
--- NOTE | 2025-01-21 13:12 | PC.NURSE ---
PT and OT is at bedside at this time
--- NOTE | 2025-01-21 13:50 | HMH.OTEV ---
OT Inpatient Evaluation Rehab OT IP Evaluation Start: 01/21/25 11:16 Freq: ONCE Status: Active Protocol: Document 01/21/25 13:45 [facility] (Rec: 01/21/25 13:50 [facility] [id number]) Rehab OT IP Assessment Subjective History Pt oriented x 2 on arrival. Pt agreeable to engage in therapy evaluation. Pt came to ED today due to functional decline. History and Physical: This patient is a 74-year-old male with a history of chronic malnutrition, failure to thrive, general weakness, decubitus ulcer, and chronic spine fractures presenting to the emergency department for evaluation with concern for progressive functional decline , continued back pain, inability to ambulate and care for himself at home. He is requesting placement, stating he wants to go to [place]. He did have a fall out of bed 4 days ago but denies any specific injury from this. No focal weakness on 1 side versus the other, no numbness, tingling, saddle anesthesia. No fevers or infectious symptoms. He just notes that he overall has chronic back pain and cannot care for himself, walk. Patient was placed at [facility] until about a month ago, at which point he was discharged home. Since going home, he has had progressive decline and cannot care for himself anymore, seeking placement again. Subjective I can't do much. Pt reports prior to being in the hospital his son in law was living with him. Pt claims he is no longer able to complete ADLs independently and requires assistance with dressing and bathing. He is dependent on family for completion of all IADLs. Objective Patient Orientation Person,Birthday Right Upper Extremity Gross ROM Min Limitation <25% Left Upper Extremity Gross ROM Min Limitation <25% Shoulder ROM Limitations Muscle Weakness Elbow ROM Limitations Muscle Weakness Wrist Limitations of Range of Motion Muscle Weakness Bed Mobility bed mobility-scooting,bed mobility - supine/sit Assist Level Moderate x 1 (50% assist) Transfer Training Sit/Stand Transfer Assist Level Minimal x 2 (25% assist) Rehab OT IP prob,goals,plan Problems Date of Evaluation: 01/21/25 OT IP Problems Bed Mobility,Transfers,Balance ,Self care,Safety Rehab Potential Rehab Potential Good Equipment Needs Assistive Devices Rolling / Wheeled Walker Plan OT intervention Plan Bed Mobility,Transfers,Balance ,Self care,Safety,Therapeutic Exercise OT Plan Frequency Daily Duration LOS Discharge Goals Bed Mobility Ability Assistance x1 Sit to Stand Chair Transfer Ability Minimal x 1 (25% assist) Chair Transfer Ability Minimal x 1 (25% assist) Chair Transfer Technique Sit to/from Ambulatory Chair Transfer Assistive Devices Rolling Walker Feeding Ability Assist with Tray Set Up Lower Body Dressing Ability Moderate Assistance Upper Body Dressing Ability Minimal Assistance Bathing Ability Moderate Assistance Performing Toilet Hygiene Ability Moderate Assistance Overall Commode/Toilet Transfer Ability Contact Guard,Minimal Assistance Commode/Toilet Transfer Technique Sit to/from Ambulatory Commode/Toilet Transfer Assistive Grab Bars Devices Oral Care Assist Minimal Assistance Decrease in Endurance Yes Discharge Plan OT Discharge Plan At this time, pt presents with a decline in functional transfers and ADL independence . Pt would benefit most from short term rehab at SNF following discharge. Continued skilled therapy is important in order for patient improve strength, safety, endurance, ADL independence, and functional transfers to reach PLOF. Eval Complexity Eval Charge Codes 74625 - Moderate Complexity PHYSICIAN CERTIFICATION: I certify the specified therapy services for Refugio Jones are required, authorized, and reviewed every 30 days.
--- NOTE | 2025-01-21 14:17 | HMH.PTEV ---
Physical Therapy Evaluation Rehab PT IP Evaluation Start: 01/21/25 11:16 Freq: ONCE Status: Active Protocol: Document 01/21/25 14:10 [facility] (Rec: 01/21/25 14:16 [facility] [id number]) Subjective/History History History 74-year-old male with a history of chronic malnutrition, failure to thrive, general weakness, decubitus ulcer, and chronic spine fractures presenting to the emergency department for evaluation with concern for progressive functional decline , continued back pain, inability to ambulate and care for himself at home. He is requesting placement, stating he wants to go to [place]. He did have a fall out of bed 4 days ago but denies any specific injury from this. No focal weakness on 1 side versus the other, no numbness, tingling, saddle anesthesia. No fevers or infectious symptoms. He just notes that he overall has chronic back pain and cannot care for himself, walk. Patient was placed at the [facility] until about a month ago, at which point he was discharged home. Since going home, he has had progressive decline and cannot care for himself anymore, seeking placement again. Pt reports he lives with family, no KRYSTYNA the home, and he generally uses a cane for all ambulation, but he is independent with mobility. Subjective Subjective Pt c/o significant pain in his low back at this time, but he does agree to mobility assessment. [facility] How much help from another person do you currently need... Turning from your back to your side A lot while in a flat bed without using bedrails? Moving from lying on back to sitting on A lot the side of a flat bed without using bedrails? Moving to and from a bed to a chair ( A lot including a wheelchair)? Standing up from a chair using your arms A lot ? (e.g., wheelchair, bedside chair) Walking in hospital room? A lot Climbing 3-5 steps with a railing? A lot Mobility Score 12 Mobility Level [facility] Mobility Calculator Mobility 4 Move to chair/ commode Rehab PT IP Eval Objective Appearance Patient Behavior Appropriate Patient Orientation Person,Place,Time Difficulty following instructions none Speech Pattern Clear Ambulation Patient Able to Ambulate Yes Ambulation Observation IP General Gait Pattern Observation Antalgic Gait Ambulation Distance (feet) 2 Ambulation Assistive Device None Ambulation Ability Moderate x 1 (50% assist) Balance Ability to Arise Able, uses arms to help Sitting Balance Steady, safe Standing Balance Unsteady Dynamic Standing Balance Ability Poor Transfers Bed Transfer Ability Moderate x 1 (50% assist) Chair Transfer Ability Moderate x 1 (50% assist) Sit to Stand Bed Transfer Ability Moderate x 1 (50% assist) Sit to Stand Chair Transfer Ability Moderate x 1 (50% assist) Rehab PT IP prob,goals,plan Problems Date of Evaluation: 01/21/25 PT IP Problems Bed Mobility,Transfers,Gait Rehab Potential Rehab Potential Good Plan PT Intervention Plan Bed Mobility,Transfers,Gait PT Plan Frequency Daily Duration LOS Discharge Goals Bed Transfer Ability Minimal x 2 (25% assist) Sit to Stand Chair Transfer Ability Minimal x 2 (25% assist) Ambulation Assistive Device Rolling Walker Ambulation Distance (feet) 5 Discharge Plan PT Discharge Plan Pt is currently most appropriate for rehab placement once medically stable for d/c. Pt would be unsafe to return home at this time without 24 hr assistance due to significant reduction in all transfers and ambulation vs baseline PLOF. Eval Complexity Eval Charge Codes 68064 - High Complexity PHYSICIAN CERTIFICATION: I certify the specified therapy services for Refugio Jones are required, authorized, and reviewed every 30 days.
--- NOTE | 2025-01-21 15:09 | PC.NURSE ---
attempted to call pts NOK x2. unsuccessful. left a message
--- NOTE | 2025-01-21 15:51 | PC.NURSE ---
ATTEMPTED TO CALL DAUGHTER AGAIN, LEFT MESSAGE AT THIS TIME
--- NOTE | 2025-01-21 16:25 | PC.NURSE ---
spoke with pts daughter. she is on her way to pick pt up
== END 2025-01-21 17:08 | disposition home or self-care (01) ==
PROVIDERS: Emergency Provider Emergency Medicine; PCP Nurse Practitioner Family
DX: R53.81 Other malaise (principal); M54.9 Dorsalgia, unspecified; R26.2 Difficulty in walking, not elsewhere classified; R41.81 Age-related cognitive decline; E46 Unspecified protein-calorie malnutrition; R62.7 Adult failure to thrive; I10 Essential (primary) hypertension; E78.5 Hyperlipidemia, unspecified; E87.6 Hypokalemia; G89.29 Other chronic pain; W19.XXXA Unspecified fall, initial encounter; Y93.9 Activity, unspecified; Y92.9 Unspecified place or not applicable
CPT/HCPCS: 70450; 71045; 72125; 72128; 72131; 72170; 80053; 83735; 84100; 84436; 84443; 85025; 93005; 99284

== ENCOUNTER 2025-02-19 10:01 | Day surgery (SDC) | payer MEDICARE, SELFPAY ==
--- NOTE | 2025-02-19 10:07 | EXP.HP ---
History of Present Illness *Admission Date: 02/19/25 *Reason for visit:: Intrathecal refill; DDD *History of present illness: Degenerative disc disease [facility] Disclaimer: The information contained in this section may have been updated after the patient was seen, as this information can be updated by other users. Medical History Elevated WBC count History of low potassium Esophageal thickening Screening for colon cancer Abdominal pain Posture abnormality Diarrhea Lumbar degenerative disc disease Peritonitis Urinary incontinence Bee sting reaction Anxiety Low vitamin B12 level Adjustment disorder Acute sinusitis Acute bronchitis Acute exacerbation of chronic obstructive pulmonary disease Rib injury BPH (benign prostatic hyperplasia) Asthma Hypertension Acute exacerbation of chronic low back pain Bronchitis Exposure to COVID-19 virus Sinusitis Carotid artery stenosis Asthma GERD (gastroesophageal reflux disease) History of DVT (deep vein thrombosis) HLD (hyperlipidemia) HTN (hypertension) Radiculopathy Neck pain Finger laceration Otitis media Pneumonia Lumbar radiculopathy Surgical History S/P insertion of sacral nerve stimulator S/P exploratory laparotomy Hx of colonoscopy History of colectomy History of elbow surgery History of surgery on lower extremity History of splenectomy History of back surgery Family History Other No significant family history Social History Smoking Status: Never smoker second hand exposure: No alcohol intake: never substance use type: denies use current occupational status: retired Travel in the last 8 weeks: None housing: house caffeine: Yes Have you lived/traveled outside US in past 30 days?: No Contact w/someone who lives/traveled outside US past 30 days?: No Exposure to someone with infectious disease in past 14 days?: No Do you have a fever (greater than 100.4 F or 38 C)?: No Have you tested positive for COVID-19: No Exposed to someone with COVID-19 in past 14 days?: No Do you have a sore throat?: No Do you have a cough?: No Do you have any weakness?: No Do you have any diarrhea?: No Are you experiencing any unusual bleeding?: No Do you have any muscle aches/pain?: No Do you have any abdominal pain?: No Are you experiencing loss of taste or smell?: No Other Medical History Have you received the Flu Vaccine for this season: No Have you received the Pneumonia Vaccine: No Review of Systems Review of Systems Review of systems:: pertinent systems reviewed and negative unless documented below Review of systems (narrative): Review of Systems: General: No recent weight changes, no fever, no sleep disturbances Respiratory: No cough, no shortness of air, no recurring pulmonary infections Cardiovascular/peripheral vascular: No chest pain, no palpitations, no edema, no shortness of breath Gastrointestinal: No new onset incontinence, normal bowel movements reported Genitourinary: No new onset incontinence Musculoskeletal: Chronic back pain Psychiatric: [Normal mood/affect] Neurological: [Denies weakness in extremities], [denies balance issues] Constitutional Constitutional: Reports system reviewed and no additional complaints, except as documented Meds Home Medications and Allergies Home Medications ?Medication ?Instructions ?Recorded ?Confirmed ?Type morphine (PF) 1 mg/mL injection 1 mg continuous intrathecal 11/07/23 11/26/24 History solution infusion CONT acetaminophen 325 mg tablet 650 mg PO Q8HP PRN Fever Or Pain 11/17/24 11/26/24 History (Tylenol) potassium chloride 20 mEq 20 meq PO BID #60 tabs 11/18/24 11/26/24 Rx tablet,extended release New Prescriptions to Start Prescriptions: Allergies Allergy/AdvReac Type Severity Reaction Status Date / Time No Known Allergies Allergy Verified 11/26/24 11:21 Exam Constitutional Constitutional: no acute distress *Routine HEENT Exam Head: Present normocephalic and atraumatic Eye: Present PERRL ENT: Present mucous membranes moist *Routine Neck Exam Neck: Present supple *Routine Respiratory Exam Respiratory: Present CTA bilaterally *Routine Cardiovascular Exam Cardiovascular: Present RRR *Routine Abdominal Exam Abdominal: Present soft *Routine Rectal Exam Rectal:: deferred *Routine Genitalia Exam Genitalia:: normal male Routine Back/Spine/Pelvis Exam Back/Spine: Present pain with flexion *Routine Skin Exam Skin: Present intact *Routine Neurological Exam Neurological: Present alert Routine Psychiatric Exam Psychiatric: Present normal affect Assessment and Plan *Assessment and plan (1) Chronic back pain: Status: Acute Category: Medical Code(s): M54.9 - Dorsalgia, unspecified; G89.29 - Other chronic pain (2) Closed L1 vertebral fracture: Status: Acute Qualifiers: Encounter type: initial encounter Fracture morphology: wedge compression Qualified Code(s): S32.010A - Wedge compression fracture of first lumbar vertebra, initial encounter for closed fracture Category: Medical Code(s): S32.019A - Unspecified fracture of first lumbar vertebra, initial encounter for closed fracture Plan Patient has been instructed to contact the clinic with any concerns before the next appointment. Dr. Gongora has reviewed this note and agrees with this plan of care. This note was dictated using voice recognition software and make contain errors or omissions. All injections are used with Lidocaine, Bupivacaine and dexamethasone. Occasionally urine drug screen is needed to verify patient's compliance with our office pain contract. This is ordered based off specific treatments related to chronic pain with the potential to abuse certain medications.
--- NOTE | 2025-02-19 10:09 | P.PCN_ITS ---
Procedure Date: 02/19/25 Time: 10:36 Anesthesiologist:: Gia Henao APRN Complications:: None Pre-procedure Diagnosis:: Degenerative disc disease lumbar spine, chronic back pain Post-procedure Diagnosis:: Same Indications for Procedure:: Patient is a pleasant 74-year-old male who presents today for intrathecal refill and reprogram. Today he rates his pain a 4 out of 10. He denies any new falls or injuries. He does state that he still has his chronic back pain and that the pump is overall bulky and tender anytime he hits it. Patient is currently managed with morphine 1 mg/mL with a daily dose of 0.1396 mg/day. Patient does also state he still has his chronic knee pain and is hoping to get some gel injection coming up. He does also make mention that he has been moved from multiple locations and is currently out of facility in order to help with his care. His Siva has been reviewed and is appropriate. Physical Exam: General: Alert and oriented x3, no acute distress, pleasant and cooperative Lungs: Respirations even and unlabored, symmetrical chest expansion Eyes: PERRL Musculoskeletal: Flexion and extension of lumbar [spine] somewhat guarded secondary to pain, [antalgic gait noted] Neurological: Speech clear, no gross sensory deficit Procedure Details:: Informed consent was obtained and the risk and benefits of the procedure were explained to the patient. The patient had noninvasive monitoring placed includi ng noninvasive blood pressure cuff and pulse oximeter. Patient's pump was interrogated. The area over the pump was cleansed with chlorhexidine as a cleansing solution. In sterile fashion the pump was accessed with a 22-gauge needle. Approximately 1.7 mls of the pump solution was removed and discarded appropriately. The pump was then refilled with 20 mL's of morphine 1 mg/mL. The needle was withdrawn and a bandage was placed over the puncture site. The infusion rate was reprogrammed and increased 5% to morphine 0.1465 mg/day. The patient tolerated well with no complication. Plan and Disposition:: Patient tolerated the procedure well with no complications and was discharged neurologically intact. Patient will return to clinic on or before their next intrathecal refill date. We will see the patient back in the clinic at the next intrathecal refill. Patient has been instructed to contact the clinic with any concerns before the next appointment. Dr. Gongora has reviewed this note and agrees with this plan of care. This note was dictated using voice recognition software and make contain errors or omissions. -- It Is medically necessary for this patient to continue to have their intrathecal pump refilled at regular intervals. This patient had an intrathecal pain pump implanted after meeting criteria of chronic intractable pain for greater than 3 months and failing conservative treatments. Patient has committed and been compliant to the treatment plan and all planned follow up care. Since implantation of the intrathecal pain pump, the patient has had decreased pain and been more functional. Oral medications have been reduced including intake of oral opioids. Patient continues to do well with intrathecal therapy with de crease in pain symptoms and increase in functional status. Stopping intrathecal medications can lead to life threatening withdrawal, seizures, cardiac arrest, severe pain, and possible . Pumps that are not refilled at regular intervals can be damages and cause and need for replacement. We continually titrate dose and concentration to optimize pain relief and function. We are limited in concentration for certain drugs to safely deliver medications through the pump and stay within the recommendations from the Polyanalgesic Consensus Committee Guidelines. Depending on dose and concentration these pumps may need to be refilled sooner than 3 months as we titrate. A UDS is needed to verify patient's compliance with our office pain contract. This is ordered based off specific treatments related to chronic pain with the potential to abuse certain medications.
[2025-02-19 10:17] VITALS: BP 143/87; PULSE 96; RESP 16; TEMP 36.9; O2SAT 100; BMI 20.5
[2025-02-19 10:33] VITALS: BP 126/75; PULSE 104; RESP 18; O2SAT 96
[2025-02-19 10:34] VITALS: BP 126/75; PULSE 97; RESP 18; O2SAT 96
[2025-02-19 10:46] VITALS: BP 139/67; PULSE 87; RESP 16; O2SAT 98
== END 2025-02-19 10:46 | disposition home or self-care (01) ==
PROVIDERS: PCP Nurse Practitioner Family; Visit Provider Nurse Practitioner Family
DX: M54.9 Dorsalgia, unspecified (principal); G89.29 Other chronic pain; M51.369 Other intervertebral disc degeneration, lumbar region without mention of lumbar back pain or lower extremity pain
CPT/HCPCS: 62370; 99221

== ENCOUNTER 2025-06-04 17:13 | Emergency (ER) | payer MEDICARE, SELFPAY ==
[2025-06-04 17:19] VITALS: BP 146/84; PULSE 58; RESP 16; TEMP 36.7; O2SAT 98; BMI 19.0
--- OUTSIDE RECORDS SUMMARY | 2025-06-04 17:32 | XMS_ITS | Clinical Summary ---
Author Organization [facility] yste Address [address] [place] [address] Care Team Providers Care Adz Worker Name Role Phone Unavailable Primary Care Provider Unavailabl e Social History Tobacco Use Types Packs/Day Years Used Date Smoking Tobacco: Never Assessed Abuse Screen Answer Date Recorded Unsafe at Home or Work/School Not on file Feels Threatened by Someone? Not on file 08/2023 Does Anyone Keep You from Co ntacting Others or Doint Things Outside the Home? Not on file 08/07/2023 Physical Sign of Abuse Present Not on file 1 Housing Stability Answer Date Recorded Current Living Arrangements Not on file 07/28 Potentially Unsafe Housing Conditions Not on osvaldo e 08/07/2023 Family and Community Support Answer Vance e Recorded Help with Day-to-Day Activities Not on file 08/07/2023 Lonely or Isolated Not on file 08/07/2023 Employment Answer Date Recorded Do you want help finding or keeping work or a edgardo b? Not on file 08/07/2023 Disabilities Answer Date Recorded Concentrating, Remembering, or Making Decisions Difficulty Not on file 08/07/2023 Doing Errands Independently Difficulty Not on fi le 08/07/2023 Education Answer Date Recorded Help with school or training? Not on file Preferred Language Not on file 08/07/2023 Sex and Gender Information Value Date Recorded Sex Assigned at Not on file Legal Sex Male 12:11 PM EDT Gender Identity Not on file Sexual Orientation Not on file Last Filed Vital Signs Vital Sign Reading Time Taken Comments Blood Pressure 138/64 04/13/2014 10:03 AM EDT Pulse 53 04/13/2014 10:03 AM EDT Temperature - - Respiratory Rate 16 04/13/2014 10:0 3 AM EDT Oxygen Saturation - - Inhaled Oxygen Concentration - - Weight 81.2 kg (178 lb 15.9 oz) 014 10:03 AM EDT Height 172.7 cm (5' 8 ) 04/13/2014 10:0 3 AM EDT Body Mass Index 27.22 04/13/2014 10:03 AM EDT Plan of Treatment Health Maintenance Due Date Last Done Comments ANNUAL PHYSICAL 1950 HEPATITIS C SCREENING 1950 TDAP/TD VACCINES (1 - Tdap) 02/20/1971 COLOGUARD 02/20/1997 COLON CANCER SCREENING 5 YEAR SIGMOIDOSCOPY 02/20/1997 COLONOSCOPY 02/20/1997 COLORECTAL CANCER SCREENING 02/20/1997 CT COLONOGRAPHY 02/20/1997 FECAL OCCULT BLOOD TEST 02/20/1997 FIT Testing (1 year) 02/20/1997 Pneumococcal Vaccine 50+ (1 of 1 - PCV) 02/20/2002 ZOSTER VACCINE (1 of 2) 02/20/2002 AAA SCREEN ONCE 02/20/2017 COVID-19 Vaccine (1 - season) 2024 INFLUENZA VACCINE 07/28/2025
--- OUTSIDE RECORDS SUMMARY | 2025-06-04 17:32 | XMS_ITS | Clinical Summary ---
Author Organization Healthcare Address [address] [place] [address] Care Team Providers Care Television Receiver Analyzer Name Role Phone Unavailable Primary Care Provider Unavailabl e Immunizations Immunization Administration Dates Next Due Meningococcal C Conjugate 10/18/2009 Pneumococcal, Unspecified 10/18/2009 TD (adult), 2 Lf tetanus tox oid, preservative free, adsorbed 10/18/2009 Tetanus toxoid, adsorbed 10/18/2009 Varicella Zoster Immune Globulin 10/18/2009 Social History Tobacco Use Types Packs/Day Years Used Date Smoking Tobacco: Never Assessed Sex and Gender Information Value Date Recorded Sex Assigned at Not on file Legal Sex Male 8:13 PM EDT Gender Identity Not on file Sexual Orientation Not on file Plan of Treatment Health Maintenance Due Date Last Done Comments [facility]-Depression Screening 1950 [facility]-/Child/Adol SDOH Screenings 1950 [facility]- SDOH Screenings 02/20/1970 [facility]-Adult SDOH Screenings 02/20/1970 CT Colonography 02/20/1997 Colonoscopy 02/20/1997 FIT-DNA 02/20/1997 FIT 02/20/1997 FOBT 02/20/1997 Sigmoidoscopy 02/20/1997 [facility]-Colorectal Cancer Screening 02/20/1997 [facility]-Pneumococcal Vaccine: 50 + Years (1 of 1 - PCV) 02/20/2002 10/18/2009 [facility]-Zoster Vaccines (1 of 2) 02/20/2002 [facility]-DTaP,Tdap,and Td Vaccine s (1 - Tdap) 10/19/2009 10/18/2009 [id number] Vaccine (1 - 20 24-25 season) 2024 [facility]-Influenza Vaccine (#1) 2025 [facility]-RSV Vaccine: 60+ Years o r (1 - 1-dose 75+ series) 02/20/2027 HPV Vaccines Aged Out No longer eligi ble based on patient's age to complete this topic [facility]-HIB Vaccines Aged Out No longer e ligible based on patient's age to complete this topic [facility]-Hepatitis A Vaccines Aged Out No longer eligible based on patient's age to complete this topic [facility]-IPV Vaccines Aged Out No longer e ligible based on patient's age to complete this topic [facility]-Rotavirus Vaccines Aged Out No lo nger eligible based on patient's age to complete this topic
--- NOTE | 2025-06-04 18:55 | XR_ITS ---
PROCEDURE INFORMATION: Exam: XR Left Knee Exam date and time: 06/04/2025 7:01 PM Age: 75 years old Clinical indication: Pain; Knee; Left; Additional info: Pain no injury TECHNIQUE: Imaging protocol: Radiologic exam of the left knee. Views: 3 views. COMPARISON: No relevant prior studies available. FINDINGS: Bones/joints: Large marginal osteophytes and significant degenerative changes involving the three compartments of the left knee. No evidence of acute osseous abnormality. Soft tissues: Normal. IMPRESSION: 1. Large marginal osteophytes and significant degenerative changes involving the three compartments of the left knee. 2. No evidence of acute osseous abnormality.
[2025-06-04 20:00] VITALS: BP 144/76; PULSE 61; O2SAT 98
[2025-06-04 20:36] VITALS: BP 145/75; PULSE 64; RESP 20; TEMP 36.7; O2SAT 92
--- NOTE | 2025-06-04 23:40 | ED_ITS ---
<Statement entered by Kaylynn Valenzuela DO - 06/05/25 01:23> I was consulted by the NAVARRO, and we discussed the complexity of problems being addressed. I approve the treatment and management plan for this patient's care in the emergency department, thus performing a substantial portion of the medical decision making. Kaylynn Valenzuela DO Discharge Plan Disposition Patient Disposition: Home, Self-Care Condition: Good Prescriptions Prescriptions: No Action acetaminophen [Tylenol] 325 mg tablet 650 mg PO Q8HP PRN (Reason: Fever Or Pain) potassium chloride 20 mEq tablet extended release 20 meq PO BID Qty: 60 0RF morphine (PF) 1 mg/mL Solution 1 mg continuous intrathecal infusion CONT Referrals Follow up/Referrals: Senia Espinoza APRN [Primary Care Provider, Medical] - See instructions Activity Restrictions/Add. Instructions Additional Instructions/Restrictions: Follow-up with pain management. Call them to schedule an appointment to help with your pain control. Return to the emergency department for any acute or worsening symptoms. Clinical Impressions Clinical Impression: Chronic knee pain Print Language Print Language: Georgian Discharge ED Provider: Kaylynn Valenzuela General Adult HPI <MORGAN Nation - Last Filed: 06/04/25 23:43> General Chief complaint: PAIN Stated complaint: Left knee pain Time Seen by Provider: 06/04/25 19:30 Mode of Arrival: Wheelchair Source of Information: Patient Description of Symptoms (Recalled from ER Triage Doc. by RN): pt to the ED with left knee pain. pt reports he sees pain management, gets injections and has a pain pump but reports the pain is worse than usual for the last few weeks. pt denies any falls or new injuries to the extremity History of Present Illness HPI narrative: Patient presents complaining of knee pain. Family reports that he does have a morphine pain pump. They are unsure if he has had it filled or if it is working properly. He describes left more than right sided pain. Denies any injury. MD complaint: left knee pain. Onset (ago): unknown Location: left and lower extremity Severity: moderate Consistency: constant Relieving factors: none Exacerbating factors: none Associated symptoms: denies other symptoms Treatments prior to arrival: none Related Data Home Medications ?Medication ?Instructions ?Recorded ?Confirmed morphine (PF) 1 mg/mL injection 1 mg continuous intrat hecal 11/07/23 02/19/25 solution infusion CONT acetaminophen 325 mg tablet 650 mg PO Q8HP PRN Fever O r Pain 11/17/24 02/19/25 (Tylenol) Previous Rx's ?Medication ?Instructions ?Recorded potassium chloride 20 mEq 20 meq PO BID #60 tabs 11/18 tablet,extended release Allergies Allergy/AdvReac Type Severity Reaction Status Date / Time No Known Allergies Allergy Verified 11/26/24 11:21 [facility] <MORGAN Nation - Last Filed: 06/04/25 23:43> [facility] Disclaimer: The information contained in this section may have been updated after the patient was seen, as this information can be updated by other users. Medical History Elevated WBC count History of low potassium Esophageal thickening Screening for colon cancer Abdominal pain Posture abnormality Diarrhea Lumbar degenerative disc disease Peritonitis Urinary incontinence Bee sting reaction Anxiety Low vitamin B12 level Adjustment disorder Acute sinusitis Acute bronchitis Acute exacerbation of chronic obstructive pulmonary disease Rib injury BPH (benign prostatic hyperplasia) Asthma Hypertension Acute exacerbation of chronic low back pain Bronchitis Exposure to COVID-19 virus Sinusitis Carotid artery stenosis Asthma GERD (gastroesophageal reflux disease) History of DVT (deep vein thrombosis) HLD (hyperlipidemia) HTN (hypertension) Radiculopathy Neck pain Finger laceration Otitis media Pneumonia Lumbar radiculopathy Surgical History S/P insertion of sacral nerve stimulator S/P exploratory laparotomy Hx of colonoscopy History of colectomy History of elbow surgery History of surgery on lower extremity History of splenectomy History of back surgery Family History Other No significant family history Social History Smoking Status: Never smoker second hand exposure: No alcohol intake: never substance use type: denies use current occupational status: retired Travel in the last 8 weeks?: None housing: house caffeine: Yes Have you lived/traveled outside US in past 30 days?: No Contact w/someone who lives/traveled outside US past 30 days?: No Exposure to someone with infectious disease in past 14 days?: No Do you have a fever (greater than 100.4 F or 38 C)?: No Have you tested positive for COVID-19?: No Exposed to someone with COVID-19 in past 14 days?: No Do you have a sore throat?: No Do you have a cough?: No Do you have any weakness?: No Do you have any diarrhea?: No Are you experiencing any unusual bleeding?: No Do you have any muscle aches/pain?: No Do you have any abdominal pain?: No Are you experiencing loss of taste or smell?: No Other Medical History Have you received the Flu Vaccine for this season: No Have you received the Pneumonia Vaccine: No <MORGAN Nation - Last Filed: 06/04/25 23:43> ROS Obtained: Yes Systems reviewed as appropriate & no additional complaints except as documented Physical Exam <MORGAN Nation Last Filed: 06/04/25 23:43> General General appearance: alert and in no apparent distress Head Head exam: atraumatic and normocephalic Eye Eye exam: Present normal appearance and EOMI Chest Chest inspection: Present symmetric chest wall rise Respiratory Respiratory exam: Present normal lung sounds bilaterally; Absent wheezes or stridor Cardiovascular Cardiovascular exam: Present regular rate and normal rhythm; Absent systolic murmur Extremities Exam Extremities exam: Present other (B/L knee tenderness, N/V intact, FROM, stable ) Neurological Exam Neurological exam: Present alert and oriented X3 Psychiatric Psychiatric exam: Present normal affect and normal mood Skin Skin exam: Present warm, dry and intact Medical Decision Making <MORGAN Nation - Last Filed: 06/04/25 23:43> Medical Records Screening: Per USPSTF and CDC recommendations, given the prevalence of disease in our region, it is our hospital?s policy to screen for HIV and viral Hepatitis for all patients aged 18 and over and those with ongoing risk factors. Siva Inquiry Pt receiving controlled substance: No Vital Signs: 06/04/25 17:19 06/04/25 20:00 06/04/25 20:36 Temperature 98.0 F 98.1 F Temperature Source Oral Pulse Rate 61 64 Pulse Rate [Left Radial] 58 L Respiratory Rate 16 20 Blood Pressure 144/76 H 145/75 H Blood Pressure [Right Arm] 146/84 H Blood Pressure Mean [Right Arm] 104 Blood Pressure Source [Right Arm] Automatic Cuff Blood Pressure Position [Right Arm] Sitting 02 Sat by Pulse Oximetry 98 98 Oxygen Delivery Method Room Air Orders (Tests/Meds): ORDERS Category Date Time Status XR knee RT 3V Stat Exams 06/04/25 18:55 Completed Medical Decision Narrative: In summary patient is a 75-year-old male who presents the emergency department for evaluation of chronic knee. Patient is hemodynamically upon arrival, afebrile. Unremarkable physical. Differential diagnosis includes [DDx]. Initial workup will be conducted with x-ray. Initial workup reviewed by pa x- rays negative. Upon repeat evaluation patient continues to rest comfortably.. Given this patient was discharged home with instructions to follow-up with his painter foreman. Family is agreeable to plan.. <Kaylynn Valenzuela DO - Last Filed: 06/05/25 01:23> Vital Signs: 06/04/25 17:19 06/04/25 20:00 06/04/25 20:36 Temperature 98.0 F 98.1 F Temperature Source Oral Pulse Rate 61 64 Pulse Rate [Left Radial] 58 L Respiratory Rate 16 20 Blood Pressure 144/76 H 145/75 H Blood Pressure [Right Arm] 146/84 H Blood Pressure Mean [Right Arm] 104 Blood Pressure Source [Right Arm] Automatic Cuff Blood Pressure Position [Right Arm] Sitting 02 Sat by Pulse Oximetry 98 98 Oxygen Delivery Method Room Air Lab Data Lab results reviewed: Yes I reviewed the patient's lab results. Orders (Tests/Meds): ORDERS Category Date Time Status XR knee RT 3V Stat Exams 06/04/25 18:55 Completed Medical Decision Narrative: In summary patient is a 75-year-old male who presents the emergency department for evaluation of chronic knee. Patient is hemodynamically upon arrival, afebrile. Unremarkable physical. Differential diagnosis includes but not l imited to fracture, dislocation, sprain, strain, amongst others. Initial workup will be conducted with x-ray. Initial workup reviewed by me x-rays negative. Patient had no redness erythema of the of the knee, no swelling, patient had full range of motion of the knee low concern for septic joint. Upon repeat evaluation patient continues to rest comfortably.. Given this patient was discharged home with instructions to follow-up with his painter foreman. Family is agreeable to plan. Was discharged home in stable condition. Critical Care <MORGAN Nation - Last Filed: 06/04/25 23:43> Critical Care Time Critical Care Time: No
== END 2025-06-04 20:45 | disposition home or self-care (01) ==
PROVIDERS: Emergency Provider Student in an Organized Health Care Education/Training Program; PCP Nurse Practitioner Family
DX: M25.562 Pain in left knee (principal); G89.29 Other chronic pain; M25.561 Pain in right knee
CPT/HCPCS: 73562; 99283

== ENCOUNTER 2025-06-18 11:12 | Day surgery (SDC) | payer MEDICARE, SELFPAY ==
--- NOTE | 2025-06-18 11:14 | P.HP_ITS ---
History of Present Illness *Admission Date: 06/18/25 *Reason for visit:: Intrathecal refill; DDD *History of present illness: Same [facility] Disclaimer: The information contained in this section may have been updated after the patient was seen, as this information can be updated by other users. Medical History Elevated WBC count History of low potassium Esophageal thickening Screening for colon cancer Abdominal pain Posture abnormality Diarrhea Lumbar degenerative disc disease Peritonitis Urinary incontinence Bee sting reaction Anxiety Low vitamin B12 level Adjustment disorder Acute sinusitis Acute bronchitis Acute exacerbation of chronic obstructive pulmonary disease Rib injury BPH (benign prostatic hyperplasia) Asthma Hypertension Acute exacerbation of chronic low back pain Bronchitis Exposure to COVID-19 virus Sinusitis Carotid artery stenosis Asthma GERD (gastroesophageal reflux disease) History of DVT (deep vein thrombosis) HLD (hyperlipidemia) HTN (hypertension) Radiculopathy Neck pain Finger laceration Otitis media Pneumonia Lumbar radiculopathy Surgical History S/P insertion of sacral nerve stimulator S/P exploratory laparotomy Hx of colonoscopy History of colectomy History of elbow surgery History of surgery on lower extremity History of splenectomy History of back surgery Family History Other No significant family history Social History Smoking Status: Never smoker second hand exposure: No alcohol intake: never substance use type: denies use current occupational status: retired Travel in the last 8 weeks?: None housing: house caffeine: Yes Have you lived/traveled outside US in past 30 days?: No Contact w/someone who lives/traveled outside US past 30 days?: No Exposure to someone with infectious disease in past 14 days?: No Do you have a fever (greater than 100.4 F or 38 C)?: No Have you tested positive for COVID-19?: No Exposed to someone with COVID-19 in past 14 days?: No Do you have a sore throat?: No Do you have a cough?: No Do you have any weakness?: No Do you have any diarrhea?: No Are you experiencing any unusual bleeding?: No Do you have any muscle aches/pain?: No Do you have any abdominal pain?: No Are you experiencing loss of taste or smell?: No Other Medical History Have you received the Flu Vaccine for this season: No Have you received the Pneumonia Vaccine: No Meds Home Medications and Allergies Home Medications ?Medication ?Instructions ?Recorded ?Confirmed ?Type morphine (PF) 1 mg/mL injection 1 mg continuous intrat hecal 11/07/23 02/19/25 History solution infusion CONT acetaminophen 325 mg tablet 650 mg PO Q8HP PRN Fever O r Pain 11/17/24 02/19/25 History (Tylenol) potassium chloride 20 mEq 20 meq PO BID #60 tabs 11/1802/19/25 Rx tablet,extended release New Prescriptions to Start Prescriptions: Allergies Allergy/AdvReac Type Severity Reaction Status Date / Time No Known Allergies Allergy Verified 11/26/24 11:21 Exam *Routine HEENT Exam Head: Present normocephalic and atraumatic Eye: Present PERRL ENT: Present mucous membranes moist *Routine Neck Exam Neck: Present supple *Routine Respiratory Exam Respiratory: Present CTA bilaterally *Routine Cardiovascular Exam Cardiovascular: Present RRR *Routine Abdominal Exam Abdominal: Present soft *Routine Rectal Exam Rectal:: deferred *Routine Genitalia Exam Genitalia:: deferred Routine Back/Spine/Pelvis Exam Back/Spine: Present pain with flexion *Routine Skin Exam Skin: Present intact and warm *Routine Neurological Exam Neurological: Present alert
--- NOTE | 2025-06-18 11:15 | P.PCN_ITS ---
Procedure Date: 06/18/25 Time: 11:37 Anesthesiologist:: Gia Henao APRN Complications:: None Pre-procedure Diagnosis:: Degenerative disc disease of lumbar spine with lumbar radiculopathy symptoms, chronic pain syndrome Post-procedure Diagnosis:: Same Indications for Procedure:: And Valerio is a pleasant 75-year-old male who presents today for intrathecal refill and reprogram. He rates his pain today an 8 out of 10. He denies any new trauma or injury. He does state that he would like an increase on his pump. Patient does state from our last visit that his daughter had taken him to a local penitentiary was not very pleased with this. He does state that he is back at home. He denies any other changes. Patient is currently managed with morphine 1 mg/mL with a daily dose of 0.1465 mg/day. He denies any side effects. His Siva has been reviewed and is appropriate. Physical Exam: General: Alert and oriented x3, no acute distress, pleasant and cooperative Lungs: Respirations even and unlabored, symmetrical chest expansion Eyes: PERRL Musculoskeletal: Flexion and extension of lumbar [spine] somewhat guarded secondary to pain, [antalgic gait noted] Neurological: Speech clear, no gross sensory deficit Procedure Details:: Informed consent was obtained and the risk and benefits of the procedure were explained to the patient. The patient had noninvasive monitoring placed including noninvasive blood pressure cuff and pulse oximeter. Patient's pump was interrogated. The area over the pump was cleansed with chlorhexidine as a cleansing solution. In sterile fashion the pump was accessed with a 22-gauge needle. Approximately 2 mls of the pump solution was removed and discarded appropriately. The pump was then refilled with 20 mL's of morphine 1 mg/mL. The needle was withdrawn and a bandage was placed over the puncture site. The infusion rate was reprogrammed and increased to morphine 0.1611 mg/day. The patient tolerated well with no complication. Plan and Disposition:: Patient tolerated the procedure well with no complications and was discharged neurologically intact. Patient will return to clinic on or before their next intrathecal refill date. We will see the patient back in the clinic at the next intrathecal refill. Patient has been instructed to contact the clinic with any concerns before the next appointment. Dr. Gongora has reviewed this note and agrees with this plan of care. This note was dictated using voice recognition software and make contain errors or omissions. -- It Is medically necessary for this patient to continue to have their intrathecal pump refilled at regular intervals. This patient had an intrathecal pain pump implanted after meeting criteria of chronic intractable pain for greater than 3 months and failing conservative treatments. Patient has committed and been compliant to the treatment plan and all planned follow up care. Since implantation of the intrathecal pain pump, the patient has had decreased pain and been more functional. Oral medications have been reduced including intake of oral opioids. Patient continues to do well with intrathecal therapy with decrease in pain symptoms and increase in functional status. Stopping intrathecal medications can lead to life threatening withdrawal, seizures, cardiac arrest, severe pain, and possible . Pumps that are not refilled at regular intervals can be damages and cause and need for replacement. We continually titrate dose and concentration to optimize pain relief and function. We are limited in concentration for certain drugs to safely deliver medications through the pump and stay within the recommendations from the Polyanalgesic Consensus Committee Guidelines. Depending on dose and concentration these pumps may need to be refilled sooner than 3 months as we titrate. A UDS is needed to verify patient's compliance with our office pain contract. This is ordered based off specific treatments related to chronic pain with the potential to abuse certain medications.
[2025-06-18 11:22] VITALS: BP 152/94; PULSE 61; RESP 16; O2SAT 95; BMI 21.2
[2025-06-18 11:50] VITALS: BP 167/108; PULSE 74; RESP 16; O2SAT 100
[2025-06-18 12:04] VITALS: BP 180/100; PULSE 90; RESP 18; O2SAT 98
== END 2025-06-18 11:50 | disposition home or self-care (01) ==
PROVIDERS: PCP Nurse Practitioner Family; Visit Provider Nurse Practitioner Family
DX: M51.16 Intervertebral disc disorders with radiculopathy, lumbar region (principal); Z45.1 Encounter for adjustment and management of infusion pump; G89.4 Chronic pain syndrome; Z86.718 Personal history of other venous thrombosis and embolism; Z79.891 Long term (current) use of opiate analgesic
CPT/HCPCS: 62370

== ENCOUNTER 2025-08-16 19:51 | Emergency (ER) | payer MEDICARE, SELFPAY ==
[2025-08-16 20:06] VITALS: BP 00/00; PULSE 0; RESP 0; TEMP -17.7; TEMP 0; O2SAT 0
--- NOTE | 2025-08-16 20:12 | PC.NURSE ---
fdc through triage process, patient asked how long the wait would be. patient educated that currently, all rooms were full and patients were begin asked to sit in the lobby until rooms became available. patient stated he did not want to wait and would like to leave and return tomorrow. patient was offered a chair room to initiate that and denied wanting to sit in the chair room by himself at this time. patient LEFT WITHOUT BEING FULLY TRIAGED @ 2008
--- OUTSIDE RECORDS SUMMARY | 2025-08-16 20:12 | XMS_ITS | Clinical Summary ---
Author Organization [facility] yste Address [address] [place] [address] Care Team Providers Care Production Department Supervisor Name Role Phone Unavailable Primary Care Provider [...] of 2) 02/20/2002 AAA SCREEN ONCE 02/20/2017 INFLUENZA VACCINE 05/28/2025 COVID-19 Vaccine (1 - season) 2025
--- OUTSIDE RECORDS SUMMARY | 2025-08-16 21:12 | XMS_ITS | CCD ---
Author Organization Unknown Care Team Providers Care Executive Vp Name Role Phone Non Engaged, [employer] Primary Care Provider Unav ailable Unavailable Chronic Care Management Unavaila ble Summary Purpose DataExchange Insurance Providers Payer name Policy type / Coverage type Covered libertarian ID Effective Begin Date Effective End Date [facility] [id number] Unknown Unknown Family History Family History data not found Medication Administered No Medication Administered data Reason For Visit No Reason For Visit data Medical Equipment No Medical Equipment data Advance Directives No Advance Directive data
== END 2025-08-16 20:08 | disposition left against medical advice (07) ==
LOC: ER 20:10
PROVIDERS: Emergency Provider Student in an Organized Health Care Education/Training Program; PCP Nurse Practitioner Family
DX: Z53.21 Procedure and treatment not carried out due to patient leaving prior to being seen by health care provider (principal)
CPT/HCPCS: 99211

== ENCOUNTER 2025-08-17 15:10 | Emergency (ER) | payer MEDICARE, SELFPAY ==
[2025-08-17 15:15] VITALS: BP 143/74; PULSE 65; RESP 20; TEMP 36.8; O2SAT 97; BMI 23.3
--- NOTE | 2025-08-17 15:21 | XR_ITS ---
FINAL REPORT CLINICAL HISTORY: shoulder pain FINDINGS: Three views show no evidence of acute displaced fracture or dislocation of the visualized bony architecture. The joint spaces appear normal. The bones are osteopenic. IMPRESSION: No acute findings. Reviewed, Interpreted and Dictated by Tomas Figueroa MD Transcribed by Holly Garcia Authenticated and [facility]
--- NOTE | 2025-08-17 15:21 | XR_ITS ---
FINAL REPORT CLINICAL HISTORY: shoulder pain FINDINGS: Three views show no evidence of acute displaced fracture or dislocation of the visualized bony architecture. There is advanced AC joint arthropathy. The glenohumeral joint is intact. The bones are osteopenic. IMPRESSION: Advanced AC joint arthropathy. Reviewed, Interpreted and Dictated by Tomas Figueroa MD Transcribed by Holly Garcia Authenticated and [facility]
--- NOTE | 2025-08-17 15:21 | XR_ITS ---
FINAL REPORT CLINICAL HISTORY: elbow pain FINDINGS: Three views of the left elbow were obtained. There is no acute fracture or dislocation. Oval calcification along the lateral epicondyle may be seen with chronic tendinitis. There is elongated calcification along the medial epicondyle which also can be seen with chronic tendinitis. Mild degenerative changes are present. The bones are osteopenic. IMPRESSION: Degenerative and chronic appearing findings. Reviewed, Interpreted and Dictated by Tomas Figueroa MD Transcribed by Holly Garcia Authenticated and [facility]
--- NOTE | 2025-08-17 15:21 | XR_ITS ---
FINAL REPORT CLINICAL HISTORY: knee pain FINDINGS: Four views show no evidence of an acute, displaced fracture or dislocation of the visualized bony architecture. There are tricompartment tricompartment degenerative changes. There is chondrocalcinosis. Note is made of advanced osteopenia. IMPRESSION: Degenerative and chronic appearing findings. Reviewed, Interpreted and Dictated by Tomas Figueroa MD Transcribed by Holly Garcia Authenticated and [facility]
--- NOTE | 2025-08-17 15:21 | XR_ITS ---
FINAL REPORT CLINICAL HISTORY: knee pain FINDINGS: Four views show no evidence of an acute, displaced fracture or dislocation of the visualized bony architecture. There is severe tricompartment degenerative changes. There is chondrocalcinosis. Note is made of advanced osteopenia. IMPRESSION: Degenerative and chronic appearing findings. Reviewed, Interpreted and Dictated by Tomas Figueroa MD Transcribed by Holly Garcia Authenticated and [facility]
--- OUTSIDE RECORDS SUMMARY | 2025-08-17 16:10 | XMS_ITS | Clinical Summary ---
Author Organization Healthcare Address [address] [place] [address] Care Team Providers Care Recycling Crew Supervisor Name Role Phone Unavailable Primary Care [...] Vaccine s (1 - Tdap) 10/19/2009 10/18/2009 [id number] Vaccine (1 - 20 24-25 season) 2025 UKY-Influenza Vaccine (#1) 2025 UKY-RSV Vaccine: 60+ [...]
--- OUTSIDE RECORDS SUMMARY | 2025-08-17 16:10 | XMS_ITS | Clinical Summary ---
Author Organization [facility] yste Address [address] [place] [address] Care Team Providers Care Property Administrator Name Role Phone Unavailable Primary Care Provider [...]
--- NOTE | 2025-08-17 17:09 | ED_ITS ---
Discharge Plan Disposition Patient Disposition: Home, Self-Care Prescriptions Prescriptions: No Action acetaminophen [Tylenol] 325 mg tablet 650 mg PO Q8HP PRN (Reason: Fever Or Pain) potassium chloride 20 mEq tablet extended release 20 meq PO BID Qty: 60 0RF morphine (PF) 1 mg/mL Solution 1 mg continuous intrathecal infusion CONT Referrals Follow up/Referrals: Devin Henao DO [Staff Physician, Orthopedics] - See instructions Senia Espinoza APRN [Primary Care Provider, Medical] - See instructions Activity Restrictions/Add. Instructions Additional Instructions/Restrictions: At this time it was felt you are safe to be discharged home. If new or worsening symptoms please do not hesitate to return the emergency department. Please call and schedule appointment with Dr. Henao as soon as you are able. For pain please take Tylenol and ibuprofen with a little bit of food. Do not take ibuprofen continuously for longer than 7 days. Clinical Impressions Clinical Impression: Fall, Bilateral shoulder pain, Bilateral knee pain, Elbow pain, left, Osteoarthritis Print Language Print Language: Armenian Discharge ED Provider: Ramon Gandhi General Adult HPI General Chief complaint: PAIN Stated complaint: AO 08-12 fell and hurt knees and left elbow Time Seen by Provider: 08/17/25 15:16 Mode of Arrival: Wheelchair Source of Information: Patient Description of Symptoms (Recalled from ER Triage Doc. by RN): Pt fell on 08/12 and is having bilateral knee, bilateral shoulder, and left elbow pain. Pt does have a pain pump on R lower back. Pt did not hit his head, and no loss of conciousness History of Present Illness HPI narrative: Patient is 75-year-old male with past medical history of osteoarthritis presents emergency department for evaluation of multiple joint pain stemming from a fall. Patient states that he was walking outside when he fell off onto his left elbow after his left knee gave out. Did not strike his head, no anticoagulants. He is complaining of bilateral knee pain, left elbow pain, bilateral shoulder pain. No chest pain or abdominal pain reported. No headache. No bleeding diathesis. Please note that above description of symptoms, in this electronic medical rec ord under categorization of recalled from ER triage doctor by RN are reflective of an initial nursing assessment, however, is not reflective of my full history and physical exam that was personally taken and clarified. Consequentially, this preceding description of symptoms, which may include the patient's categorized chief complaint in the EMR, do not reflect my personal clinical impression, and the ultimate description of history of present illness and patient stated complaints should be deferred to this section of the note. Unless stated otherwise or congruent with this section of the note, additional signs, symptoms, or incongruence should be interpreted as inaccurate with my clinical impression. Related Data Home Medications ?Medication ?Instructions ?Recorded ?Confirmed morphine (PF) 1 mg/mL injection 1 mg continuous intrat hecal 11/07/23 06/18/25 solution infusion CONT acetaminophen 325 mg tablet 650 mg PO Q8HP PRN Fever O r Pain 11/17/24 06/18/25 (Tylenol) Previous Rx's ?Medication ?Instructions ?Recorded potassium chloride 20 mEq 20 meq PO BID #60 tabs 11/18 tablet,extended release Allergies Allergy/AdvReac Type Severity Reaction Status Date / Time No Known Allergies Allergy Verified 11/26/24 11:21 [facility] PFS Disclaimer: The information contained in this section may have been updated after the patient was seen, as this information can be updated by other users. Medical History Elevated WBC count History of low potassium Esophageal thickening Screening for colon cancer Abdominal pain Posture abnormality Diarrhea Lumbar degenerative disc disease Peritonitis Urinary incontinence Bee sting reaction Anxiety Low vitamin B12 level Adjustment disorder Acute sinusitis Acute bronchitis Acute exacerbation of chronic obstructive pulmonary disease Rib injury BPH (benign prostatic hyperplasia) Asthma Hypertension Acute exacerbation of chronic low back pain Bronchitis Exposure to COVID-19 virus Sinusitis Carotid artery stenosis Asthma GERD (gastroesophageal reflux disease) History of DVT (deep vein thrombosis) HLD (hyperlipidemia) HTN (hypertension) Radiculopathy Neck pain Finger laceration Otitis media Pneumonia Lumbar radiculopathy Surgical History S/P insertion of sacral nerve stimulator S/P exploratory laparotomy Hx of colonoscopy History of colectomy History of elbow surgery History of surgery on lower extremity History of splenectomy History of back surgery Family History Other No significant family history Social History Smoking Status: Never smoker second hand exposure: No alcohol intake: never substance use type: denies use current occupational status: retired Travel in the last 8 weeks?: None housing: house caffeine: Yes Other Medical History Have you received the Flu Vaccine for this season: No Have you received the Pneumonia Vaccine: No ROS Obtained: Yes Systems reviewed as appropriate & no additional complaints except as documented Physical Exam General General appearance: alert and in no apparent distress Head Head exam: atraumatic and normocephalic Eye Eye exam: Present PERRL and EOMI ENT ENT exam: Present mucous membranes moist Neck Neck exam: Present normal inspection Chest Chest inspection: Present normal inspection and symmetric chest wall rise Respiratory Respiratory exam: Absent respiratory distress Cardiovascular Cardiovascular exam: Present regular rate and normal rhythm Abdominal Exam Abdominal exam: Present soft Extremities Exam Extremities exam: Present normal inspection and other (Tenderness over the bilateral shoulder, bilateral knee, left elbow. No obvious deformity. 5 out of 5 strength bilateral upper and lower extremities. Distally neurovascularly intact.) Neurological Exam Neurological exam: Present alert and CN II-XII intact; Absent motor sensory deficit Psychiatric Psychiatric exam: Present normal affect Skin Skin exam: Present warm and dry Medical Decision Making Medical Records Screening: Per USPSTF and CDC recommendations, given the prevalence of disease in our region, it is our hospital?s policy to screen for HIV and viral Hepatitis for all patients aged 18 and over and those with ongoing risk factors. Siva Inquiry Pt receiving controlled substance: No Vital Signs: 08/17/25 15:15 Temperature 98.3 F Temperature Source Temporal Artery Scan Pulse Rate [Right] 65 Respiratory Rate 20 Blood Pressure [Right Arm] 143/74 H Blood Pressure Mean [Right Arm] 97 Blood Pressure Source [Right Arm] Automatic Cuff Blood Pressure Position [Right Arm] Sitting 02 Sat by Pulse Oximetry 97 Oxygen Delivery Method Room Air Orders (Tests/Meds): ORDERS Category Date Time Status XR elbow LT min 3V Stat Exams 08/17/25 15:21 Completed XR knee LT 4V Stat Exams 08/17/25 15:21 Completed XR knee RT 4V Stat Exams 08/17/25 15:21 Completed XR shoulder LT min 2V Stat Exams 08/17/25 15:21 Completed XR shoulder RT min 2V Stat Exams 08/17/25 15:21 Completed Medical Decision Narrative: In summary patient is 75-year-old male with past medical history of scrota above presents emergency department for evaluation of traumatic injury sustained in fall. Patient is hemodynamically stable nontoxic-appearing upon arrival, afebr ile. Workup based on history and physical exam we conducted with plain films of the bilateral knees, left elbow, bilateral shoulders. Fall is mechanical in nature hematologic labs were considered will be deferred. Intracranial imaging was considered however he did not strike his head does not have any anticoagulants we deferred. Plain films informally interpreted by me no obvious displaced fracture or dislocation. Formal read show evidence of arthritis no acute fracture. Given this patient is appropriate for outpatient management at this time will follow-up with Dr. Henao on outpatient basis was given return precautions. Muleser disclaimer Much of this encounter note is an electronic artillery specialist spoken language to printed text. Electronic artillery specialist of the spoken language may permit errors. Although I have reviewed the note, some errors may still exist. Critical Care Critical Care Time Critical Care Time: No
--- OUTSIDE RECORDS SUMMARY | 2025-08-17 17:09 | XMS_ITS | CCD ---
Author Organization Unknown Care Team Providers Care Unhairing Inspector Name Role Phone Non Engaged, [facility] Primary Care Provider Unav ailable Unavailable Chronic Care Management Unavaila ble Summary Purpose DataExchange Insurance Providers Payer name Policy type / Coverage type Covered libertarian ID Effective Begin Date Effective End Date [facility] [id number] Unknown Unknown Family History Family History data not found Medication Administered No Medication Administered data Reason For Visit No Reason For Visit data Medical Equipment No Medical Equipment data Advance Directives No Advance Directive data
--- OUTSIDE RECORDS SUMMARY | 2025-08-17 17:10 | XMS_ITS | CCD ---
Author Organization Unknown Care Team Providers Care Dynamics Ax Solution Architect Name Role Phone Non Engaged, [facility] Primary Care Provider Unav ailable Unavailable Chronic Care Management Unavaila ble Summary Purpose DataExchange Insurance Providers Payer name Policy type / Coverage type Covered republican ID Effective Begin Date Effective End Date [facility] [id number] Unknown Unknown Family History Family History data not found Medication Administered No Medication Administered data Reason For Visit No Reason For Visit data Medical Equipment No Medical Equipment data Advance Directives No Advance Directive data
[2025-08-17 17:13] VITALS: BP 144/83; PULSE 61; RESP 16; TEMP 36.7; O2SAT 97
== END 2025-08-17 17:14 | disposition home or self-care (01) ==
PROVIDERS: Emergency Provider Emergency Medicine; PCP Nurse Practitioner Family
DX: M25.511 Pain in right shoulder (principal); M25.512 Pain in left shoulder; M25.561 Pain in right knee; M25.562 Pain in left knee; M25.522 Pain in left elbow; M17.0 Bilateral primary osteoarthritis of knee; M19.022 Primary osteoarthritis, left elbow; W18.30XA Fall on same level, unspecified, initial encounter
CPT/HCPCS: 73030; 73080; 73564; 99282; 99284

== ENCOUNTER 2025-10-22 22:33 | Observation (INO) | payer MEDICARE, SELFPAY ==
[2025-10-22 22:33] VITALS: BP 188/129; PULSE 91; O2SAT 96
[2025-10-22 22:34] VITALS: BP 188/129; PULSE 94; RESP 18; TEMP 36.8; O2SAT 96; BMI 21.7
[2025-10-22 22:37] VITALS: BP 200/102; PULSE 98; O2SAT 97
--- OUTSIDE RECORDS SUMMARY | 2025-10-22 22:52 | XMS_ITS | Clinical Summary ---
Author Organization Healthcare Address [address] [place] [address] Care Team Providers Care Hr Leader Name Role Phone Unavailable Primary Care Provider [...] Vaccine s (1 - Tdap) 10/19/2009 10/18/2009 [id number] Vaccine (1 - 20 - season) 2025 [facility]-Influenza Vaccine (#1) 2025 [facility]-RSV Vaccine: 60+ Years o r (1 - 1-dose 75+ series) 02/20/2027 HPV Vaccines (No Doses Required) Completed UKY-HIB Vaccines Aged Out No longer e [...]
--- OUTSIDE RECORDS SUMMARY | 2025-10-22 22:52 | XMS_ITS | CCD ---
Author Organization Unknown Care Team Providers Care Ferry Engineer Name Role Phone Non Engaged, [facility] Primary Care Provider Unav ailable Unavailable Chronic Care Management Unavaila ble Summary Purpose DataExchange Insurance Providers Payer name Policy type / Coverage type Covered democrat ID Effective Begin Date Effective End Date [facility] [id number] Unknown Unknown Family History Family History data not found Medication Administered No Medication Administered data Reason For Visit No Reason For Visit data Medical Equipment No Medical Equipment data Advance Directives No Advance Directive data
--- OUTSIDE RECORDS SUMMARY | 2025-10-22 22:52 | XMS_ITS | Clinical Summary ---
Author Organization [facility] yste Address [address] [place] [address] Care Team Providers Care Pizza Cook Name Role Phone Unavailable Primary Care Provider [...]
[2025-10-22 23:00] VITALS: BP 200/102; PULSE 112; O2SAT 96
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
[2025-10-22] MEDS: MORPHINE 2MG/ML SYRINGE 2 MG IV (23:23)
[2025-10-22 23:28] LABS: Hematocrit 38.0 % (42.0-52.0); Hemoglobin 13.2 g/dL (14.1-18.0); Immature Granulocytes % 0.3 %; Mean Corpuscular HGB Conc 34.7 g/dL (31.8-35.4); Mean Corpuscular Hemoglobin 31.4 pg (27.0-31.2); Mean Corpuscular Volume 90.3 fl (80-94); Nucleated Red Blood Cells % 0 %; Platelet Count 412 K/mm3 (142-424); Red Blood Count 4.21 M/mm3 (4.60-6.20); Red Cell Distribution Width-SD 43.3 fL; White Blood Count 11.4 K/mm3 (4.8-10.8)
[2025-10-22 23:32] LABS: Albumin Level 4.4 g/dl (3.5-5.0); Chloride 107 mmol/L (98-107); Potassium 3.1 mmoL/L (3.5-5.1); Sodium 140 mmol/L (136-145)
[2025-10-22 23:34] LABS: Blood Urea Nitrogen 11 mg/dl (9-20); Creatinine Clearance Estimated 60 mL/min (50-200); Creatinine,Serum 0.90 mg/dl (0.66-1.25); Estimated Glomerular Filt Rate 83 ml/min (>60); GFR (African American) 100 ML/MIN (>60)
[2025-10-22 23:35] LABS: Alanine Aminotransferase 19 U/L (12-78); Albumin/Globulin Ratio 1.2 (1.1-1.8); Alkaline Phosphatase 150 U/L (38-126); Anion Gap 14.1 mEq/L (5-15); Aspartate Amino Transferase 36 U/L (17-59); Bilirubin,Total 0.7 mg/dl (0.2-1.3); Calcium 10.0 mg/dl (8.4-10.2); Carbon Dioxide 22 mmol/L (22.0-30.0); Creatine Kinase 77 U/L (55-170); Globulin 3.7 g/dL (1.3-3.2); Glucose 149 mg/dl (74-100); Total Protein,Serum 8.1 g/dl (6.3-8.2)
[2025-10-22] MEDS: LACTATED RINGERS 1000ML 1,000 ML 999 ML IV (23:49)
[2025-10-23] VITALS (13 sets, daily range): BP systolic 124–200; BP diastolic 71–114; PULSE 70–110; RESP 16–20; TEMP 36.6–37.1; O2SAT 92–97; BMI 21.6
[2025-10-23 00:43] LABS: Hepatitis C Ab Qual. W/ RFX NEGATIVE (Negative)
--- NOTE | 2025-10-23 00:47 | PC.NURSE ---
PT noted to have a strong odor of cat urine/Ammonia. PT eyes noted to have green crust all over. PT hair noted to be unkept. Bilateral socks are dirty and well worn. Blue pants are noted to have rips in the legs. PT toes nails are noted to be black. Clean non skid socks placed, eyes cleaned with mild soap and warm water.
[2025-10-23] MEDS: MORPHINE 2MG/ML SYRINGE 2 MG IV (00:55)
[2025-10-23] MEDS: POTASSIUM CHLORIDE 20MEQ TAB 40 MEQ PO ×2 (00:56→02:40)
[2025-10-23] MEDS: ROPINIROLE 1MG TABLET 1 MG PO ×2 (01:00→20:58)
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
--- NOTE | 2025-10-23 01:26 | PC.NURSE ---
Report called to CINDI Fitzpatrick on [facility]
--- NOTE | 2025-10-23 01:32 | PC.NURSE ---
Pt provided a warm blanket.
[2025-10-23] MEDS: ONDANSETRON 4MG/2ML VIAL 4 MG IV (02:15)
[2025-10-23] MEDS: CYCLOBENZAPRINE 10MG TABLET 10 MG PO ×3 (02:15→20:58)
[2025-10-23] MEDS: 0.9 % SODIUM CHLORIDE 1000ML 1,000 ML 150 ML IV (02:15)
[2025-10-23] MEDS: GABAPENTIN 300MG CAPSULE 300 MG PO ×2 (03:20→20:58)
[2025-10-23 03:23] LABS: Reflex Lactic Add Lactic Reflex
[2025-10-23 04:32] LABS: Bilirubin,Urine Negative (Negative); Color,Urine YELLOW (Yellow); Glucose,Urine (UA) Negative (Negative); Ketones,Urine Negative (Negative); Leukocyte Esterase,Urine NEGATIVE (Negative); PH,Urine 6.0 (5.0-8.5); Protein,Urine NEGATIVE (Negative); Specific Gravity, Urine >= 1.030 (1.005-1.030); Urobilinogen,Urine 0.2 EU/dl (0.2)
--- NOTE | 2025-10-23 04:35 | PC.NURSE ---
Addendum entered by Nanette John RN 10/23/25 06:25: Patient's blood pressure was elevated once more (at 05:55, the patient's blood pressure reading was 180/96). Gabriela Lam MD was paged at 06:04 to inform him that the patient has consistently had elevated blood pressures, and the patient has not had any sort of relief for his restless leg complaint this shift. Gabriela Lam MD stated to go ahead and administer irbesartan and nifedipine early; these medications were given at 06:20 per DEC. Blood pressure reading prior to the administrations was 151/90. A new order for IV valium was obtained for restlessness and administered per DEC as well. Addendum entered by Nanette John RN 10/23/25 05:45: Elevated blood pressure at 04:55 (reading was 156/108) was treated with IV labetolol per DEC. Headache was reported by the patient. Blood pressure was later taken at 05:10, and the reading was 149/76. Patient stated that his headache slightly improved after the administration. Original Note: Mr Refugio Jones was newly admitted during this shift on behalf of the documented diagnosis failure to thrive. Admission assessments and home medication reconciliation were completed by me. Is alert and oriented x4. Noted to be unkempt, frail-appearing, and odorous. During admission assessment, the patient did not verbally endorse any apparent concerns with his living situation despite his unkempt appearance. Unclear about family situation as well during assessments. Has transportation issues. Case management consult ordered per admission criteria. He was observed to be awake throughout the majority of the night since his arrival to the floor. Patient has had persistent complaints of restless legs ( numbing, jumping, and burning sensations) this shift despite Requip, Flexeril, and Neurontin administrations. Gabriela Lam MD aware. He has not had any sort of relief from the medications. Patient stated that ambulating around and stretching his legs has been the only sort of comfort for this complaint. Both legs are without redness and are [id number]; skin texture is even throughout. He has ambulated around in his room quite frequently this shift, also transferring from chair to bed ad khushi. Additionally ambulated in the hallway for a couple laps with Reid LOVELL. Has a decently steady gait. Physical assessment (see nursing shift biophysical intervention) was performed as appropriately this shift. Normal saline continues to infuse at 150 mL/hr. Electrolyte replacement protocol as directed; received oral potassium. Patient did have one unmeasured emesis episode shortly after arriving to his room. Zofran was given per DEC; since receiving, the patient has not had any further complaints of nausea/vomiting thus far. Sipped Brenda Radha. Lovenox ordered for VTE prophylaxis for today. Elevated blood pressures. Urinal at bedside for voiding needs; urine sample sent this shift for urinalysis. At this time, the patient resides in his room. Call light is within reach.
[2025-10-23 04:51] LABS: Microscopic, Urine URINE MICROSCOPIC (MICROSCOPIC)
[2025-10-23] MEDS: LABETALOL 5MG/ML 20ML MDV 10 MG IV (04:55)
[2025-10-23] MEDS: HYDRALAZINE 20MG/ML VIAL 10 MG IV (05:55)
[2025-10-23 06:07] LABS: Bacteria,Urine 1+ /lpf
[2025-10-23] MEDS: diazePAM 10MG/2ML SYRINGE IV (06:20)
[2025-10-23] MEDS: IRBESARTAN 75MG TABLET 75 MG PO (06:20)
[2025-10-23 08:20] LABS: Procalcitonin 0.061 ng/mL (0.0-2.0)
[2025-10-23] MEDS: ACETAMINOPHEN 325MG TAB 650 MG PO ×3 (08:30→21:56)
--- NOTE | 2025-10-23 09:11 | HMH.PHAINT1 ---
Pharmacy Intervention Comments: MEDICATION RECONCILIATION COMPLETED ON PATIENT USING EXTERNAL FILL HISTORY FROM PHARMACY. -MILY TILLMAN, EVAND
[2025-10-23] MEDS: GABAPENTIN 400MG CAPSULE 400 MG PO (09:54)
--- NOTE | 2025-10-23 17:37 | PC.NURSE ---
patient a/0x4 remains on room air. has c/o BLE pain multiple times this shift, treated per DEC and warm blankets applied. patient stated his pain has improved. tolerating diet. voids per urinal. bed alarm in place. patient has been getting out of bed independently, explained the importance of using the call light when needed to prevent falls. VSS. call light within reach, patient currently sitting on side of bed eating dinner. no further requests at this time.
[2025-10-23 23:01] LABS: Magnesium 1.9 mg/dl (1.6-2.3)
[2025-10-23] MEDS: MORPHINE 4MG/ML SYRINGE 4 MG IV (23:11)
[2025-10-24 04:00] VITALS: BP 110/69; PULSE 74; RESP 14; TEMP 37; O2SAT 96; BMI 22.3
[2025-10-24 07:39] LABS: Hematocrit 36.1 % (42.0-52.0); Hemoglobin 12.0 g/dL (14.1-18.0); Immature Granulocytes % 0.3 %; Mean Corpuscular HGB Conc 33.2 g/dL (31.8-35.4); Mean Corpuscular Hemoglobin 30.6 pg (27.0-31.2); Mean Corpuscular Volume 92.1 fl (80-94); Nucleated Red Blood Cells % 0 %; Platelet Count 352 K/mm3 (142-424); Red Blood Count 3.92 M/mm3 (4.60-6.20); Red Cell Distribution Width-SD 46.2 fL; White Blood Count 10.0 K/mm3 (4.8-10.8)
[2025-10-24 07:40] LABS: Chloride 107 mmol/L (98-107); Potassium 3.6 mmoL/L (3.5-5.1); Sodium 138 mmol/L (136-145)
[2025-10-24 07:42] LABS: Blood Urea Nitrogen 13 mg/dl (9-20); Creatinine Clearance Estimated 62 mL/min (50-200); Creatinine,Serum 0.70 mg/dl (0.66-1.25); Estimated Glomerular Filt Rate 111 ml/min (>60); GFR (African American) 134 ML/MIN (>60)
[2025-10-24 07:43] LABS: Anion Gap 8.6 mEq/L (5-15); Calcium 9.4 mg/dl (8.4-10.2); Carbon Dioxide 26 mmol/L (22.0-30.0); Glucose 97 mg/dl (74-100); Magnesium 2.1 mg/dl (1.6-2.3); Phosphorous 3.1 mg/dl (2.5-4.5)
[2025-10-24 08:00] VITALS: BP 113/73; PULSE 100; RESP 18; TEMP 36.9; O2SAT 96
[2025-10-24] MEDS: IRBESARTAN 75MG TABLET 75 MG PO (08:33)
[2025-10-24] MEDS: CYCLOBENZAPRINE 10MG TABLET 10 MG PO (10:42)
[2025-10-24 12:00] VITALS: BP 115/45; PULSE 63; RESP 18; TEMP 36.9; O2SAT 96
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
[2025-10-25 11:22] LABS: Prealbumin 16 mg/dL (9-32)
--- NOTE | 2025-10-26 10:23 | SW/DCPLANNER ---
Phoned patient x2. Left messages with name and a call back number. Clementina Hogan
== END 2025-10-24 17:04 | disposition home or self-care (01) ==
LOC: ER 10-23 01:02 → 2ND 10-23 01:11
PROVIDERS: Emergency Medicine; Internal Medicine; Student in an Organized Health Care Education/Training Program; Admitting Provider Student in an Organized Health Care Education/Training Program; Emergency Provider Student in an Organized Health Care Education/Training Program; PCP Nurse Practitioner Family; Visit Provider Student in an Organized Health Care Education/Training Program
DX: M62.838 Other muscle spasm (principal); R62.7 Adult failure to thrive; T76.01XA Adult neglect or abandonment, suspected, initial encounter; E86.0 Dehydration; E87.20 Acidosis, unspecified; E87.6 Hypokalemia; G25.81 Restless legs syndrome; R26.2 Difficulty in walking, not elsewhere classified; R53.81 Other malaise; F41.9 Anxiety disorder, unspecified; J45.909 Unspecified asthma, uncomplicated; N40.0 Benign prostatic hyperplasia without lower urinary tract symptoms; K21.9 Gastro-esophageal reflux disease without esophagitis; I10 Essential (primary) hypertension; E78.5 Hyperlipidemia, unspecified; M51.16 Intervertebral disc disorders with radiculopathy, lumbar region; Z90.81 Acquired absence of spleen; Z79.82 Long term (current) use of aspirin; Z79.899 Other long term (current) drug therapy
CPT/HCPCS: 36415; 80048; 80053; 81001; 81003; 81015; 82550; 83605; 83735; 84100; 84134; 84145; 85025; 86803; 87389; 97163; 99284; G0378; J0360; J1650; J1920; J2270; J2405; J3360; J7030; J7120

== ENCOUNTER 2025-10-26 17:31 | Emergency (ER) | payer MEDICARE, SELFPAY ==
[2025-10-26] VITALS (8 sets, daily range): BP systolic 148–175; BP diastolic 81–139; PULSE 89–104; RESP 16–18; TEMP 36.9; O2SAT 91–99; BMI 21.7
--- NOTE | 2025-10-26 17:37 | CT_ITS ---
PROCEDURE INFORMATION: Exam: CT Thoracic Spine Without Contrast Exam date and time: 10/26/2025 6:12 PM Age: 75 years old Clinical indication: Injury or trauma; Fall; Blunt trauma (contusions or hematomas) TECHNIQUE: Imaging protocol: Computed tomography of the thoracic spine without contrast. Radiation optimization: All CT scans at this facility use at least one of these dose optimization techniques: automated exposure control; mA and/or kV adjustment per patient size (includes targeted exams where dose is matched to clinical indication); or iterative reconstruction. COMPARISON: CT THORACIC SPINE WO CON 01/21/2025 11:11 AM FINDINGS: Bones/joints: There is a mild nondisplaced acute or subacute superior vertebral body endplate compression fracture at T6 that is a new finding compared to 01/21/2025. No other new compression fracture is appreciated. There are moderate degenerative changes within the mid and lower thoracic spine. The vertebral bodies are aligned. There is facet joint arthritis within the lower thoracic spine. There is a moderate old L1 superior vertebral body endplate compression fracture. There is degenerative disc disease within the upper lumbar spine. There is stable anterolisthesis of C7 with respect to T1. There is an ACDF within the lower cervical spine again noted. No acute narrowing of the spinal canal or large paravertebral hematoma is appreciated. There is an intrathecal catheter again noted within the posterior spinal canal at the level of T8. Soft tissues: No acute narrowing of the spinal canal or large paravertebral hematoma is appreciated. There is an intrathecal catheter again noted within the posterior spinal canal at the level of T8. Lungs: Calcified granuloma left lower lobe. Coronary arteries: There is dense three-vessel coronary artery disease noted and there may be a proximal LAD stent. Gallbladder and biliary ducts: Surgical clips gallbladder fossa. Other findings: Small hiatal hernia. IMPRESSION: 1. Acute or more likely subacute mild nondisplaced superior vertebral body T6 compression fracture compared to 01/21/2025. No acute narrowing of the spinal canal or large paravertebral hematoma appreciated. 2. No other interval changes appreciated. Multiple chronic findings are detailed above including three-vessel coronary artery disease.
--- NOTE | 2025-10-26 17:37 | CT_ITS ---
PROCEDURE INFORMATION: Exam: CT Cervical Spine Without Contrast Exam date and time: 10/26/2025 6:10 PM Age: 75 years old Clinical indication: Injury or trauma; Fall; Work related; Blunt trauma TECHNIQUE: Imaging protocol: Computed tomography of the cervical spine without contrast. Radiation optimization: All CT scans at this facility use at least one of these dose optimization techniques: automated exposure control; mA and/or kV adjustment per patient size (includes targeted exams where dose is matched to clinical indication); or iterative reconstruction. COMPARISON: CT CERVICAL SPINE WO CON 01/21/2025 11:09 AM FINDINGS: Bones/joints: No acute fracture. Normal alignment. C2-C3: No significant disc bulge or herniation. No severe spinal canal stenosis. No significant neural foraminal narrowing. C3-C4: No significant disc bulge or herniation. No severe spinal canal stenosis. No significant neural foraminal narrowing. C4-C5: No significant disc bulge or herniation. No severe spinal canal stenosis. No significant neural foraminal narrowing. C5-C6: Anterior fusion C5-C6. C6-C7: Vacuum disc at C6-C7. C7-T1: No significant disc bulge or herniation. No severe spinal canal stenosis. No significant neural foraminal narrowing. Lungs: Lung apices are normal. Soft tissues: Unremarkable. IMPRESSION: No acute traumatic injury identified.
--- NOTE | 2025-10-26 17:37 | CT_ITS ---
PROCEDURE INFORMATION: Exam: CT Head Without Contrast Exam date and time: 10/26/2025 6:03 PM Age: 75 years old Clinical indication: Injury or trauma; Fall; Blunt trauma (contusions or hematomas) TECHNIQUE: Imaging protocol: Computed tomography of the head without contrast. Radiation optimization: All CT scans at this facility use at least one of these dose optimization techniques: automated exposure control; mA and/or kV adjustment per patient size (includes targeted exams where dose is matched to clinical indication); or iterative reconstruction. COMPARISON: CT HEAD/BRAIN WO CON 01/21/2025 11:07 AM FINDINGS: Brain: Periventricular and subcortical small vessel ischemic changes appear chronic. Severe atrophy associated much more than expected for age. Consider MRI for further characterization. No acute hemorrhage, mass effect, midline shift, or extra-axial fluid collection. No acute traumatic intracranial abnormality identified. Cerebral ventricles: No ventriculomegaly. Paranasal sinuses: Visualized sinuses are unremarkable. No fluid levels. Mastoid air cells: Visualized mastoid air cells are well aerated. Bones: Unremarkable. No acute fracture. Soft tissues: Unremarkable. IMPRESSION: 1. No acute traumatic intracranial abnormality identified. 2. Motion artifact degrades the study.
--- NOTE | 2025-10-26 17:37 | CT_ITS ---
PROCEDURE INFORMATION: Exam: CT Lumbar Spine Without Contrast Exam date and time: 10/26/2025 6:15 PM Age: 75 years old Clinical indication: Injury or trauma; Fall; Blunt trauma (contusions or hematomas) TECHNIQUE: Imaging protocol: Computed tomography of the lumbar spine without contrast. Radiation optimization: All CT scans at this facility use at least one of these dose optimization techniques: automated exposure control; mA and/or kV adjustment per patient size (includes targeted exams where dose is matched to clinical indication); or iterative reconstruction. COMPARISON: CT LUMBAR SPINE WO CON 01/21/2025 11:15 AM FINDINGS: Tubes, catheters and devices: There is an intrathecal catheter that enters at L2-L3 with the pump in the lower posterior abdominal wall. Bones/joints: Satisfactory alignment of the lumbar vertebral bodies. Stable moderate old L1 compression fracture. No acute lumbar spine compression fracture appreciated. Multilevel advanced degenerative disc disease. L5-S1 fusion. Right-sided daniel and hook stabilization posteriorly at L4-L5. Lumbar facet joint arthritis. Transverse upper sacral screw which transverses the left sacroiliac joint. Vasculature: Extensive atherosclerotic plaquing abdominal aorta. Surgical clips at the rectosigmoid junction. Soft tissues: Unremarkable. IMPRESSION: No acute lumbar spine fracture. Multiple chronic findings as above that appear similar to 01/21/2025.
--- NOTE | 2025-10-26 17:37 | CT_ITS ---
PROCEDURE INFORMATION: Exam: CT Pelvis Without Contrast, Skeleton Exam date and time: 10/26/2025 6:17 PM Age: 75 years old Clinical indication: Injury or trauma; Fall; Blunt trauma (contusions or hematomas); Bilateral; Pelvic region TECHNIQUE: Imaging protocol: Computed tomography of the pelvis without contrast. Exam focused on the skeleton. Radiation optimization: All CT scans at this facility use at least one of these dose optimization techniques: automated exposure control; mA and/or kV adjustment per patient size (includes targeted exams where dose is matched to clinical indication); or iterative reconstruction. COMPARISON: CT ABDOMEN PELVIS W CON 10/06/2024 11:26 AM FINDINGS: Bones/joints: No acute fracture of the bony pelvis or hips is appreciated. There is no diastasis of the pubic symphysis or sacroiliac joints appreciated. There is a transverse upper sacral screw that transverses the left sacroiliac joint. There is mild old deformity of the upper ilium bilaterally. There are 2 orthopedic screws within the left femoral head and neck with a lateral side plate with what appears to be an old intertrochanteric fracture of the left hip. There are old fractures of the left superior and inferior pubic rami. The bones are osteopenic. There has been a previous L4-L5 fusion with right-sided daniel and hook stabilization. Soft tissues: Previous anterior midline pelvic and lower abdominal wall hernia repair. There is midline anterior bulging of the hernia repair above the umbilicus with associated nonobstructed small bowel loops. No bladder retention or free fluid within the pelvis. Left-sided diverticuli. Surgical clips at the rectosigmoid junction. Course penile calcifications noted. IMPRESSION: 1. No acute bony abnormality of the pelvis or hips appreciated. 2. There are multiple chronic findings which are discussed above. There is midline anterior bulging of the previous hernia repair above the umbilicus now noted.
--- OUTSIDE RECORDS SUMMARY | 2025-10-26 17:41 | XMS_ITS | CCD ---
Author Organization Unknown Care Team Providers Care Clip Loading Machine Adjuster Name Role Phone Non Engaged, [facility] Primary Care Provider Unav ailable Unavailable Chronic Care Management Unavaila ble Summary Purpose DataExchange Insurance Providers Payer name Policy type / Coverage type Covered republican ID Effective Begin Date Effective End Date [facility] [id number] Unknown Unknown Family History Family History data not found Medication Administered No Medication Administered data Reason For Visit No Reason For Visit data Medical Equipment No Medical Equipment data Advance Directives No Advance Directive data
--- OUTSIDE RECORDS SUMMARY | 2025-10-26 17:42 | XMS_ITS | Clinical Summary ---
Author Organization [facility] yste Address [address] [place] [address] Care Team Providers Care Decorator Hand Name Role Phone Unavailable Primary Care Provider [...]
--- OUTSIDE RECORDS SUMMARY | 2025-10-26 17:42 | XMS_ITS | Clinical Summary ---
Author Organization Healthcare Address [address] [place] [address] Care Team Providers Care Drum Handler Name Role Phone Unavailable Primary Care Provider [...] Vaccine s (1 - Tdap) 10/19/2009 10/18/2009 [id number] Vaccine (1 - 20 - season) 2025 [...]
[2025-10-26 17:51] LABS: Hematocrit 37.5 % (42.0-52.0); Hemoglobin 12.9 g/dL (14.1-18.0); Immature Granulocytes % 0.2 %; Mean Corpuscular HGB Conc 34.4 g/dL (31.8-35.4); Mean Corpuscular Hemoglobin 31.6 pg (27.0-31.2); Mean Corpuscular Volume 91.9 fl (80-94); Nucleated Red Blood Cells % 0 %; Platelet Count 368 K/mm3 (142-424); Red Blood Count 4.08 M/mm3 (4.60-6.20); Red Cell Distribution Width-SD 46.1 fL; White Blood Count 8.5 K/mm3 (4.8-10.8)
[2025-10-26] MEDS: KETOROLAC 30MG/ML VIAL 30 MG IV (17:52)
[2025-10-26] MEDS: ORPHENADRINE CITRATE 60MG/2ML VIAL 30 MG IV (17:53)
--- NOTE | 2025-10-26 17:56 | ED_ITS ---
Discharge Plan Disposition Chief Complaint: Fall Prescriptions Prescriptions: No Action aspirin [Adult Aspirin Regimen] 81 mg tablet,delayed release (DR/EC) 81 mg PO DAILY celecoxib [Celebrex] 200 mg capsule 200 mg PO DAILY Qty: 90 1RF ropinirole 1 mg Tablet 1 mg PO BID 30 Days Qty: 60 0RF gabapentin 300 mg Capsule 300 mg PO HS 30 Days Qty: 30 0RF irbesartan 75 mg Tablet 75 mg PO DAILY 30 Days Qty: 30 0RF Referrals Follow up/Referrals: Senia sEpinoza APRN [Primary Care Provider, Medical] - See instructions Activity Restrictions/Add. Instructions Additional Instructions/Restrictions: No acute medical or traumatic abnormality found today. Please return with any significant worsening of your symptoms. Clinical Impressions Clinical Impression: Fall, Abrasion of forehead Print Language Print Language: Czech Discharge ED Provider: Kenia Jones General Adult HPI <Janelle Contreras (ED), BILLY - Last Filed: 10/26/25 18:38> General Chief complaint: Fall Stated complaint: Fall Time Seen by Provider: 10/26/25 17:37 Mode of Arrival: EMS Source of Information: Patient Description of Symptoms (Recalled from ER Triage Doc. by RN): Per EMS patient has been falling frequently and was complaining of left hip pain but was able to ambulate to the stretcher with assistance. Patient has no complaints at this time, states he does have abrasions to left side of forehead from fall where he tripped over a cord. History of Present Illness HPI narrative: 75-year-old male presents to the ED today via EMS for frequent falls recently. Patient tells me that he has been falling over cords. This is unclear based on what patient says. EMS states that he was recently DC'd from here and has been weak and falling. Also stated that he needed his pain pump refilled and that he may be having withdrawals from his pain meds. This was said by EMS but patient tells me that there is still pain medicine and his pain pump. Patient is alert and oriented x 3. He did have some confused conversation with me. He does tell me that he hit his head on some cardboard boxes. He has some abrasions to the left side of his forehead. He tells me he also has pain in his hips and his neck. He also has pain in his low back. He has an appointment in 1 week with pain management. Related Data Home Medications ?Medication ?Instructions ?Recorded ?Confirmed aspirin 81 mg tablet,delayed 81 mg PO DAILY 09/14/25 1 12/24/24 release (Adult Aspirin Regimen) Previous Rx's ?Medication ?Instructions ?Recorded celecoxib 200 mg capsule (Celebrex) 200 mg PO DAILY #9 0 caps 09/14/25 gabapentin 300 mg capsule 300 mg PO HS 30 days #30 cap s 10/24/25 irbesartan 75 mg tablet 75 mg PO DAILY 30 days #30 t abs 10/24/25 ropinirole 1 mg tablet 1 mg PO BID 30 days #60 tabs 10/24/25 Allergies Allergy/AdvReac Type Severity Reaction Status Date / Time No Known Allergies Allergy Verified 09/14/25 10:34 PFS <Janelle Contreras (ED), HORTICULTURAL SERVICES SUPERVISOR - Last Filed: 10/26/25 18:38> REPLACED BY [facility] Disclaimer: The information contained in this section may have been updated after the patient was seen, as this information can be updated by other users. Medical History (Updated 10/26/25 @ 20:24 by Kenia Jones MD) Dehydration Elevated WBC count History of low potassium Esophageal thickening Screening for colon cancer Abdominal pain Posture abnormality Diarrhea Lumbar degenerative disc disease Peritonitis Urinary incontinence Bee sting reaction Anxiety Low vitamin B12 level Adjustment disorder Acute sinusitis Acute bronchitis Acute exacerbation of chronic obstructive pulmonary disease Rib injury BPH (benign prostatic hyperplasia) Asthma Hypertension Acute exacerbation of chronic low back pain Bronchitis Exposure to COVID-19 virus Sinusitis Carotid artery stenosis Asthma GERD (gastroesophageal reflux disease) History of DVT (deep vein thrombosis) HLD (hyperlipidemia) HTN (hypertension) Radiculopathy Neck pain Finger laceration Otitis media Pneumonia Lumbar radiculopathy Surgical History S/P insertion of sacral nerve stimulator S/P exploratory laparotomy Hx of colonoscopy History of colectomy History of elbow surgery History of surgery on lower extremity History of splenectomy History of back surgery Family History Other No significant family history Social History (Updated 10/23/25 @ 02:32 by Nanette John RN) Smoking Status: Never smoker second hand exposure: No alcohol intake: never substance use type: denies use current occupational status: retired Travel in the last 8 weeks?: None housing: house caffeine: Yes Have you lived/traveled outside US in past 30 days?: No Contact w/someone who lives/traveled outside US past 30 days?: No Exposure to someone with infectious disease in past 14 days?: No Do you have a fever (greater than 100.4 F or 38 C)?: No Have you tested positive for COVID-19?: No Exposed to someone with COVID-19 in past 14 days?: No Do you have a sore throat?: No Do you have a cough?: No Do you have any weakness?: No Do you have any diarrhea?: No Are you experiencing any unusual bleeding?: No Do you have any muscle aches/pain?: No Do you have any abdominal pain?: No Are you experiencing loss of taste or smell?: No Other Medical History Have you received the Flu Vaccine for this season: No Have you received the Pneumonia Vaccine: No <Janelle Contreras (ED), HORTICULTURAL SERVICES SUPERVISOR - Last Filed: 10/26/25 18:38> ROS Obtained: Yes Systems reviewed as appropriate & no additional complaints except as documented Constitutional Constitutional: Reports as per HPI Physical Exam <Janelle Contreras (ED), HORTICULTURAL SERVICES SUPERVISOR - Last Filed: 10/26/25 18:38> General General appearance: alert Head Head exam: other (Abrasions to the left forehead) Eye Eye exam: Present EOMI ENT ENT exam: Present mucous membranes moist Neck Neck exam: Present full ROM and trachea midline Respiratory Respiratory exam: Present normal lung sounds bilaterally Cardiovascular Cardiovascular exam: Present regular rate, normal rhythm, +S1 and +S2 Abdominal Exam Abdominal exam: Present soft and normal bowel sounds Extremities Exam Extremities exam: Present edema (Mild edema to lower extremities) Neurological Exam Neurological exam: Present alert and other (Alert to person place and time had difficulty with president name) Skin Skin exam: Present warm and dry Medical Decision Making <Janelle Contreras (ED), HORTICULTURAL SERVICES SUPERVISOR - Last Filed: 10/26/25 18:38> Medical Records Screening: Per USPSTF and CDC recommendations, given the prevalence of disease in our region, it is our hospital?s policy to screen for HIV and viral Hepatitis for all patients aged 18 and over and those with ongoing risk factors. Siva Inquiry Pt receiving controlled substance: No Siva was queried for this patient: No Vital Signs: 10/26/25 17:28 10/26/25 17:30 10/26/25 17:32 Temperature 98.5 F Temperature Source Oral Pulse Rate 95 H 90 Pulse Rate [Right Brachial] 93 H Respiratory Rate 16 Blood Pressure 150/83 H 157/81 H Blood Pressure [Right Arm] 150/83 H Blood Pressure Mean Blood Pressure Mean [Right Arm] 105 Blood Pressure Source [Right Arm] Automatic Cuff Blood Pressure Position [Right Arm] Sitting 02 Sat by Pulse Oximetry 98 99 99 Oxygen Delivery Method Room Air 10/26/25 18:02 10/26/25 19:17 10/26/25 19:17 Temperature Temperature Source Pulse Rate 89 101 H Pulse Rate [Right Brachial] Respiratory Rate 18 Blood Pressure 151/103 H 148/101 H Blood Pressure [Right Arm] Blood Pressure Mean 119 Blood Pressure Mean [Right Arm] Blood Pressure Source [Right Arm] Blood Pressure Position [Right Arm] 02 Sat by Pulse Oximetry 91 L 97 97 Oxygen Delivery Method Room Air Room Air Lab Data Lab Results 10/26/25 17:15: WBC 8.5, RBC 4.08 L, Hgb 12.9 L, Hct 37.5 L, MCV 91.9, MCH 31.6 H, MCHC 34.4, RDW 13.5, Plt Count 368, MPV 10.6 H, Neut % (Auto) 59.0, Lymph % (Auto) 30.4, [place] % (Auto) 7.8, Eos % (Auto) 1.8, Baso % (Auto) 0.8, Neut # (Auto) 5.0, Lymph # (Auto) 2.6, [place] # (Auto) 0.7, Eos # (Auto) 0.2, Baso # (Auto) 0.1, Sodium 139, Potassium 3.7, Chloride 107, Carbon Dioxide 25, Anion Gap 10.7, BUN 27 H D, Creatinine 1.10 D, Estimated Creat Clear 55, Estimated GFR 66, Est GFR ( Amer) 79 D, Glucose 109 H, Calcium 9.0, Magnesium 1.9, Total Bilirubin 1.6 H, AST 85 H, ALT 31, Alkaline Phosphatase 123, Troponin I < 0.01, Total Protein 7.5, Albumin 4.1, Globulin 3.4 H, Albumin/Globulin Ratio 1.2, Lipase 46 10/26/25 18:02: SARS-CoV-2 (PCR) Not detected, Influenza A Untype (PCR) Not detected, Influenza Type B (PCR) Not detected 10/26/25 17:15 10/26/25 17:15 Orders (Tests/Meds): ED MEDICATIONS Discontinued Medications Generic Name Dose Route Start Last Admin Trade Name Pradipq PRN Reason Stop Dose Admin Ketorolac Tromethamine 30 mg 10/26/25 17:40 10/26/25 17:52 Ketorolac 30mg/Ml Vial IV 10/26/25 17:41 30 mg ONCE ONE Administration Orphenadrine Citrate 30 mg 10/26/25 17:40 10/26/25 17:53 Orphenadrine Citrate 60mg/2ml Vial IV 10/26/25 17:41 30 mg ONCE ONE Administration ORDERS Category Date Time Status CT bony pelvis Stat Cat Scan 10/26/25 17:[address] cervical spine wo con Stat Cat Scan 10/26/25 17:[address] head/brain wo con Stat Cat Scan 10/26/25 17:[address] lumbar spine wo con Stat Cat Scan 10/26/25 17:[address] thoracic spine wo con Stat Cat Scan 10/26/25 17:37 Completed CBC [Complete Blood Count Auto Diff] Stat Lab 10/26/25 17:15 Completed Comprehensive Metabolic Panel Stat Lab 10/26/25 17:15 Completed Lipase Stat Lab 10/26/25 17:15 Completed Magnesium Stat Lab 10/26/25 17:15 Completed Rapid PCR Covid and Flu A/B Stat Lab 10/26/25 18:02 Completed Trop I [Troponin I] Stat Lab 10/26/25 17:15 Completed Troponin I Q3H Lab 10/26/25 20:45 Ordered Troponin I Q3H Lab 10/26/25 23:45 Ordered Urinalysis and Microscopic Stat Lab 10/26/25 20:18 Received Medical Decision Narrative: patient is a 75-year-old male presenting to the emergency department for evaluation of weakness, recent falls. Patient is hemodynamically stable and nontoxic-appearing upon arrival, afebrile. Differential diagnosis includes weakness, falls. Workup will be conducted with hematologic labs, specific imaging. Initial inventions include crystalloid bolus, analgesics. Await completed workup will give report to Dr. Robert Jones MD - Last Filed: 10/26/25 20:25> Vital Signs: 10/26/25 17:28 10/26/25 17:30 10/26/25 17:32 Temperature 98.5 F Temperature Source Oral Pulse Rate 95 H 90 Pulse Rate [Right Brachial] 93 H Respiratory Rate 16 Blood Pressure 150/83 H 157/81 H Blood Pressure [Right Arm] 150/83 H Blood Pressure Mean Blood Pressure Mean [Right Arm] 105 Blood Pressure Source [Right Arm] Automatic Cuff Blood Pressure Position [Right Arm] Sitting 02 Sat by Pulse Oximetry 98 99 99 Oxygen Delivery Method Room Air 10/26/25 18:02 10/26/25 19:17 10/26/25 19:17 Temperature Temperature Source Pulse Rate 89 101 H Pulse Rate [Right Brachial] Respiratory Rate 18 Blood Pressure 151/103 H 148/101 H Blood Pressure [Right Arm] Blood Pressure Mean 119 Blood Pressure Mean [Right Arm] Blood Pressure Source [Right Arm] Blood Pressure Position [Right Arm] 02 Sat by Pulse Oximetry 91 L 97 97 Oxygen Delivery Method Room Air Room Air Lab Data Lab results reviewed: Yes I reviewed the patient's lab results. Lab Results 10/26/25 17:15: WBC 8.5, RBC 4.08 L, Hgb 12.9 L, Hct 37.5 L, MCV 91.9, MCH 31.6 H, MCHC 34.4, RDW 13.5, Plt Count 368, MPV 10.6 H, Neut % (Auto) 59.0, Lymph % (Auto) 30.4, [place] % (Auto) 7.8, Eos % (Auto) 1.8, Baso % (Auto) 0.8, Neut # (Auto) 5.0, Lymph # (Auto) 2.6, [place] # (Auto) 0.7, Eos # (Auto) 0.2, Baso # (Auto) 0.1, Sodium 139, Potassium 3.7, Chloride 107, Carbon Dioxide 25, Anion Gap 10.7, BUN 27 H D, Creatinine 1.10 D, Estimated Creat Clear 55, Estimated GFR 66, Est GFR ( Amer) 79 D, Glucose 109 H, Calcium 9.0, Magnesium 1.9, Total Bilirubin 1.6 H, AST 85 H, ALT 31, Alkaline Phosphatase 123, Troponin I < 0.01, Total Protein 7.5, Albumin 4.1, Globulin 3.4 H, Albumin/Globulin Ratio 1.2, Lipase 46 10/26/25 18:02: SARS-CoV-2 (PCR) Not detected, Influenza A Untype (PCR) Not detected, Influenza Type B (PCR) Not detected Orders (Tests/Meds): ED MEDICATIONS Discontinued Medications Generic Name Dose Route Start Last Admin Trade Name Freq PRN Reason Stop Dose Admin Ketorolac Tromethamine 30 mg 10/26/25 17:40 10/26/25 17:52 Ketorolac 30mg/Ml Vial IV 10/26/25 17:41 30 mg ONCE ONE Administration Orphenadrine Citrate 30 mg 10/26/25 17:40 10/26/25 17:53 Orphenadrine Citrate 60mg/2ml Vial IV 10/26/25 17:41 30 mg ONCE ONE Administration ORDERS Category Date Time Status CT bony pelvis Stat Cat Scan 10/26/25 17:[address] cervical spine wo con Stat Cat Scan 10/26/25 17:[address] head/brain wo con Stat Cat Scan 10/26/25 17:[address] lumbar spine wo con Stat Cat Scan 10/26/25 17:[address] thoracic spine wo con Stat Cat Scan 10/26/25 17:37 Completed CBC [Complete Blood Count Auto Diff] Stat Lab 10/26/25 17:15 Completed Comprehensive Metabolic Panel Stat Lab 10/26/25 17:15 Completed Lipase Stat Lab 10/26/25 17:15 Completed Magnesium Stat Lab 10/26/25 17:15 Completed Rapid PCR Covid and Flu A/B Stat Lab 10/26/25 18:02 Completed Trop I [Troponin I] Stat Lab 10/26/25 17:15 Completed Troponin I Q3H Lab 10/26/25 20:45 Ordered Troponin I Q3H Lab 10/26/25 23:45 Ordered Urinalysis and Microscopic Stat Lab 10/26/25 20:18 Received Medical Decision Narrative: patient is a 75-year-old male presenting to the emergency department for evaluation of weakness, recent falls. Patient is hemodynamically stable and nontoxic-appearing upon arrival, afebrile. Differential diagnosis includes weakness, falls. Workup will be conducted with hematologic labs, specific imaging. Initial inventions include crystalloid bolus, analgesics. Await completed workup will give report to Dr. Jones This is Dr. Jones at 8:25 PM I personally interpreted patient's CT scans and also radiology reads. No significant acute traumatic abnormalities there is however a wedge compression fracture and T6 patient is not focally tender here this is likely chronic. No other emergent traumatic abnormalities found. On serial assessments patient is awake interacting with me normally he has an abrasion on his forehead no other focal tenderness. He is stable to go back to his home. Critical Care <Janelle Contreras (ED), HORTICULTURAL SERVICES SUPERVISOR - Last Filed: 10/26/25 18:38> Critical Care Time Critical Care Time: No
[2025-10-26 18:01] LABS: Alanine Aminotransferase 31 U/L (12-78); Albumin Level 4.1 g/dl (3.5-5.0); Albumin/Globulin Ratio 1.2 (1.1-1.8); Alkaline Phosphatase 123 U/L (38-126); Anion Gap 10.7 mEq/L (5-15); Aspartate Amino Transferase 85 U/L (17-59); Bilirubin,Total 1.6 mg/dl (0.2-1.3); Blood Urea Nitrogen 27 mg/dl (9-20); Calcium 9.0 mg/dl (8.4-10.2); Carbon Dioxide 25 mmol/L (22.0-30.0); Chloride 107 mmol/L (98-107); Creatinine Clearance Estimated 55 mL/min (50-200); Creatinine,Serum 1.10 mg/dl (0.66-1.25); Estimated Glomerular Filt Rate 66 ml/min (>60); GFR (African American) 79 ML/MIN (>60); Globulin 3.4 g/dL (1.3-3.2); Glucose 109 mg/dl (74-100); Lipase 46 U/L (23-300); Magnesium 1.9 mg/dl (1.6-2.3); Potassium 3.7 mmoL/L (3.5-5.1); Sodium 139 mmol/L (136-145); Total Protein,Serum 7.5 g/dl (6.3-8.2)
[2025-10-26 18:12] LABS: Coronavirus 19, PCR Not Detected (NotDetected); Influenza A, PCR Not Detected (NotDetected); Influenza B, PCR Not Detected (NotDetected)
[2025-10-26 18:13] LABS: Troponin I < 0.01 ng/ml (0.00-0.034)
[2025-10-26 20:24] LABS: Bilirubin,Urine Negative (Negative); Color,Urine YELLOW (Yellow); Glucose,Urine (UA) Negative (Negative); Ketones,Urine TRACE (Negative); Leukocyte Esterase,Urine Negative (Negative); Microscopic, Urine URINE MICROSCOPIC (MICROSCOPIC); PH,Urine 6.0 (5.0-8.5); Protein,Urine TRACE (Negative); Specific Gravity, Urine 1.025 (1.005-1.030); Urobilinogen,Urine 0.2 EU/dl (0.2)
[2025-10-26 20:48] LABS: Bacteria,Urine 3+ /lpf; Mucus,Urine 2+ /lpf; RBC,Urine 20-50 #/hpf (0-3); Squamous Epithelial Cell,Urine 50-100 #/hpf (0-5); WBC,Urine 20-50 #/hpf (0-3)
--- NOTE | 2025-10-26 21:58 | PC.NURSE ---
daughter, Colleen, attempted to be contacted x2 with no answer
--- NOTE | 2025-10-26 22:15 | PC.NURSE ---
patient trying to wheel himself via wheelchair to the bathroom. this Rn assisted patient to bathroom. upon pulling patients pants down, patient had liquid stool all the way down to the heel of his left foot, all over his bottom, and all over the interior of his clothes. patients clothes removed, patient given a soap and water bath and cleaned off, new ones put on patient from the community closet. patient taken back to his room via wheelchair, call light within reach, warm blanket provided to the patient. patient educated to push call light if he needed anything and not to get up by himself.
--- NOTE | 2025-10-26 22:29 | PC.NURSE ---
PT daughter, Colleen [phone], called x2 to notify of PT d/c. No answer
--- NOTE | 2025-10-26 22:35 | PC.NURSE ---
patient assisted to the bed at his request. patient has call light within reach. no needs at this time.
--- NOTE | 2025-10-26 22:59 | PC.NURSE ---
Attempted to contact daughter, Colleen, x2, no answer
--- NOTE | 2025-10-26 23:24 | PC.NURSE ---
Tech looked back production repairer log r/t viki daughter called for update on PT and was notified PT was ready for update. [phone] called x2 with no answer
--- NOTE | 2025-10-27 00:18 | PC.NURSE ---
Dispatch called and stated they were able to make contact with the pts daughter, and she was sending someone to come to ED to bring pt home. Shortly after, pts daughter called stating no one was able to come get pt until 8:30am.
--- NOTE | 2025-10-27 00:30 | PC.NURSE ---
PT daughter noted to leave same number on file that no one has been able to contact [phone]
[2025-10-27 00:35] VITALS: BP 138/79; O2SAT 95
[2025-10-27 00:40] VITALS: BP 138/79; PULSE 90; RESP 18; O2SAT 99
--- NOTE | 2025-10-27 04:19 | PC.NURSE ---
SO called, asking if pt was still in the ED and if so he could take the pt home.
[2025-10-27 04:24] VITALS: BP 176/101; PULSE 95; RESP 18; TEMP 36.9; O2SAT 95
== END 2025-10-27 04:27 | disposition home or self-care (01) ==
PROVIDERS: Nurse Practitioner; Emergency Provider Student in an Organized Health Care Education/Training Program; PCP Nurse Practitioner Family
DX: S00.81XA Abrasion of other part of head, initial encounter (principal); R41.0 Disorientation, unspecified; R29.6 Repeated falls; W01.10XA Fall on same level from slipping, tripping and stumbling with subsequent striking against unspecified object, initial encounter
CPT/HCPCS: 70450; 72125; 72128; 72131; 72192; 80053; 81001; 83690; 83735; 84484; 85025; 87086; 87636; 96374; 96375; 99285; J1885; J2360